=== PATIENT | male | born 1940 | race Caucasian/White ===

== ENCOUNTER 2019-06-13 13:32 | Outpatient (RCR) | payer MEDICARE, SELFPAY ==
[2019-03-28 14:46] LABS: Basophils Absolute Auto 0.1 K/mm3 (0.0-0.1); Basophils Percent Auto 0.8 % (0.2-1.2); Eosinophils Absolute Auto 0.1 K/mm3 (0-0.3); Eosinophils Percent Auto 0.9 % (0-4.4); Hematocrit 42.2 % (42.0-52.0); Hemoglobin 12.1 g/dL (14.0-18.0); Immature Granulocyte Absolute 0.02 K/mm3 (0.00-0.031); Immature Granulocyte Percent A 0.3 % (0-0.5); Lymphocytes Absolute Auto 0.65 K/mm3 (0.9-3.2); Mean Corpuscular HGB Conc 28.7 g/dl (32-36); Mean Corpuscular Hemoglobin 21.9 pg (26-34); Mean Corpuscular Volume 76.3 fl (80-100); Mean Platelet Volume 9.9 fl (7.4-10.4); Monocytes Absolute Auto 0.4 K/mm3 (0.1-0.6); Monocytes Percent Auto 6.7 % (2.6-8.5); Neutrophils Absolute Auto 5.3 K/mm3 (1.3-6.7); Neutrophils Percent Auto 81.3 % (45.5-73.1); Platelet Count Result 228 k/mm3 (150-375); Red Blood Count 5.53 M/mm3 (4.6-6.20); Red Cell Distribution Width 18.2 % (11.5-14.5); White Blood Count 6.5 K/mm3 (4.5-10.0)
[2019-03-28 14:59] LABS: INR 2.3; Prothrombin Time 25.2 Seconds (11.1-14.7)
[2019-03-28 15:00] LABS: Alanine Aminotransferase 21 U/L (4-50); Albumin Level 4.2 g/dL (3.5-5.1); Alkaline Phosphatase 74 U/L (38-126); Aspartate Amino Transferase 29 U/L (17-59); Bilirubin,Total 0.5 mg/dL (0.2-1.3); Blood Urea Nitrogen 20 mg/dL (9-20); Calcium 9.4 mg/dL (8.4-10.2); Carbon Dioxide 25 mmol/L (22-30); Chloride 99 mmol/L (98-107); Estimated Glomerular Filt Rate > 60; Glucose 300 mg/dL (75-110); Potassium 4.3 mmol/L (3.4-5.0); Sodium 135 mmol/L (137-145)
[2019-03-28 15:07] LABS: Platelet Estimate Adequate (Adequate)
[2019-03-28 15:08] LABS: Anisocytosis 2+ (NORMAL); Hemoglobin A1C 8.5 % (<5.7); Hypochromasia 1+ (NORMAL)
[2019-03-28 15:27] LABS: Free T4 Free Thyroxine 1.22 ng/mL (0.78-2.19)
[2019-04-25 16:33] LABS: Basophils Absolute Auto 0.1 K/mm3 (0.0-0.1); Basophils Percent Auto 1.1 % (0.2-1.2); Eosinophils Absolute Auto 0.1 K/mm3 (0-0.3); Eosinophils Percent Auto 1.1 % (0-4.4); Hematocrit 40.6 % (42.0-52.0); Hemoglobin 11.4 g/dL (14.0-18.0); Immature Granulocyte Absolute 0.01 K/mm3 (0.00-0.031); Immature Granulocyte Percent A 0.2 % (0-0.5); Lymphocytes Absolute Auto 0.69 K/mm3 (0.9-3.2); Mean Corpuscular HGB Conc 28.1 g/dl (32-36); Mean Corpuscular Hemoglobin 21.4 pg (26-34); Mean Corpuscular Volume 76.2 fl (80-100); Mean Platelet Volume 9.9 fl (7.4-10.4); Monocytes Absolute Auto 0.4 K/mm3 (0.1-0.6); Monocytes Percent Auto 6.8 % (2.6-8.5); Neutrophils Percent Auto 79.8 % (45.5-73.1); Platelet Count Result 214 k/mm3 (150-375); Red Blood Count 5.33 M/mm3 (4.6-6.20); White Blood Count 6.3 K/mm3 (4.5-10.0)
[2019-04-25 16:37] LABS: INR 2.3; Prothrombin Time 24.5 Seconds (11.1-14.7)
[2019-04-25 16:41] LABS: Alanine Aminotransferase 22 U/L (4-50); Albumin Level 4.1 g/dL (3.5-5.1); Alkaline Phosphatase 80 U/L (38-126); Aspartate Amino Transferase 28 U/L (17-59); Bilirubin,Total 0.5 mg/dL (0.2-1.3); Blood Urea Nitrogen 20 mg/dL (9-20); Calcium 9.1 mg/dL (8.4-10.2); Carbon Dioxide 25 mmol/L (22-30); Chloride 100 mmol/L (98-107); Estimated Glomerular Filt Rate > 60; Glucose 260 mg/dL (75-110); Lactate Dehydrogenase 816 U/L (313-618); Potassium 4.5 mmol/L (3.4-5.0); Sodium 138 mmol/L (137-145)
[2019-04-25 16:44] LABS: Hypochromasia 2+ (NORMAL); Ovalocytes 2+ (NORMAL); Platelet Estimate Adequate (Adequate); Poikilocytosis 1+ (NORMAL)
[2019-05-16 16:07] LABS: Basophils Absolute Auto 0.1 K/mm3 (0.0-0.1); Basophils Percent Auto 0.9 % (0.2-1.2); Eosinophils Absolute Auto 0.1 K/mm3 (0-0.3); Eosinophils Percent Auto 0.9 % (0-4.4); Hematocrit 40.2 % (42.0-52.0); Hemoglobin 11.3 g/dL (14.0-18.0); Immature Granulocyte Absolute 0.02 K/mm3 (0.00-0.031); Immature Granulocyte Percent A 0.3 % (0-0.5); Lymphocytes Absolute Auto 0.66 K/mm3 (0.9-3.2); Lymphocytes Percent Auto 9.7 % (18.3-44.2); Mean Corpuscular HGB Conc 28.1 g/dl (32-36); Mean Corpuscular Hemoglobin 21.3 pg (26-34); Mean Corpuscular Volume 75.7 fl (80-100); Mean Platelet Volume 10.2 fl (7.4-10.4); Monocytes Absolute Auto 0.4 K/mm3 (0.1-0.6); Monocytes Percent Auto 5.9 % (2.6-8.5); Neutrophils Absolute Auto 5.6 K/mm3 (1.3-6.7); Neutrophils Percent Auto 82.3 % (45.5-73.1); Platelet Count Result 204 k/mm3 (150-375); Red Blood Count 5.31 M/mm3 (4.6-6.20); Red Cell Distribution Width 19.9 % (11.5-14.5); White Blood Count 6.8 K/mm3 (4.5-10.0)
[2019-05-16 16:15] LABS: Hemoglobin A1C 8.5 % (<5.7)
[2019-05-16 16:20] LABS: Alanine Aminotransferase 20 U/L (4-50); Albumin Level 4.1 g/dL (3.5-5.1); Alkaline Phosphatase 80 U/L (38-126); Aspartate Amino Transferase 28 U/L (17-59); Bilirubin,Total 0.6 mg/dL (0.2-1.3); Blood Urea Nitrogen 19 mg/dL (9-20); Calcium 9.5 mg/dL (8.4-10.2); Carbon Dioxide 25 mmol/L (22-30); Chloride 100 mmol/L (98-107); Cholesterol 99 mg/dL (0-200); Estimated Glomerular Filt Rate 59; Glucose 214 mg/dL (75-110); HDL Direct 31 mg/dL; Lactate Dehydrogenase 875 U/L (313-618); Potassium 4.3 mmol/L (3.4-5.0); Sodium 135 mmol/L (137-145); Triglycerides 157 mg/dL (<150)
[2019-05-16 16:23] LABS: INR 2.6; Prothrombin Time 27.2 Seconds (11.1-14.7)
[2019-05-16 16:31] LABS: LDL Cholesterol Direct 38 mg/dL
[2019-05-16 17:38] LABS: Platelet Estimate Adequate (Adequate); Poikilocytosis 2+ (NORMAL)
[2019-05-16 17:39] LABS: Ovalocytes 2+ (NORMAL)
[2019-05-16 17:40] LABS: Burr Cells 2+ (NORMAL)
[2019-06-13 14:14] LABS: Basophils Absolute Auto 0.1 K/mm3 (0.0-0.1); Basophils Percent Auto 0.8 % (0.2-1.2); Eosinophils Percent Auto 0.6 % (0-4.4); Hematocrit 33.2 % (42.0-52.0); Hemoglobin 9.4 g/dL (14.0-18.0); Immature Granulocyte Absolute 0.03 K/mm3 (0.00-0.031); Immature Granulocyte Percent A 0.5 % (0-0.5); Lymphocytes Percent Auto 9.4 % (18.3-44.2); Mean Corpuscular HGB Conc 28.3 g/dl (32-36); Mean Corpuscular Hemoglobin 22.5 pg (26-34); Mean Corpuscular Volume 79.6 fl (80-100); Mean Platelet Volume 10.1 fl (7.4-10.4); Monocytes Absolute Auto 0.3 K/mm3 (0.1-0.6); Monocytes Percent Auto 5.3 % (2.6-8.5); Neutrophils Absolute Auto 5.3 K/mm3 (1.3-6.7); Neutrophils Percent Auto 83.4 % (45.5-73.1); Platelet Count Result 220 k/mm3 (150-375); Red Blood Count 4.17 M/mm3 (4.6-6.20); Red Cell Distribution Width 23.5 % (11.5-14.5); White Blood Count 6.4 K/mm3 (4.5-10.0)
[2019-06-13 14:25] LABS: INR 2.1; Prothrombin Time 22.8 Seconds (11.1-14.7)
[2019-06-13 14:27] LABS: Alanine Aminotransferase 22 U/L (4-50); Albumin Level 4.2 g/dL (3.5-5.1); Alkaline Phosphatase 78 U/L (38-126); Aspartate Amino Transferase 29 U/L (17-59); Bilirubin,Total 0.4 mg/dL (0.2-1.3); Blood Urea Nitrogen 23 mg/dL (9-20); Carbon Dioxide 23 mmol/L (22-30); Chloride 98 mmol/L (98-107); Estimated Glomerular Filt Rate > 60; Glucose 263 mg/dL (75-110); Lactate Dehydrogenase 732 U/L (313-618); Potassium 4.3 mmol/L (3.4-5.0); Sodium 134 mmol/L (137-145)
[2019-06-13 14:45] LABS: Anisocytosis 3+ (NORMAL); Hypochromasia 1+ (NORMAL); Platelet Estimate Adequate (Adequate)
== END 2019-06-26 23:59 | disposition home or self-care (01) ==
LOC: ANHLAB 13:32
DX: E11.8 Type 2 diabetes mellitus with unspecified complications (principal); E03.9 Hypothyroidism, unspecified; I25.5 Ischemic cardiomyopathy; Z95.811 Presence of heart assist device; Z79.01 Long term (current) use of anticoagulants
CPT/HCPCS: 36415; 80053; 80061; 83036; 83615; 84439; 84443; 85025; 85610

== ENCOUNTER 2019-07-12 10:58 | Outpatient (RCR) | payer MEDICARE, SELFPAY ==
[2019-06-27 18:22] LABS: Basophils Percent Auto 0.6 % (0.2-1.2); Eosinophils Absolute Auto 0.1 K/mm3 (0-0.3); Eosinophils Percent Auto 0.8 % (0-4.4); Hematocrit 34.4 % (42.0-52.0); Hemoglobin 9.7 g/dL (14.0-18.0); Immature Granulocyte Absolute 0.04 K/mm3 (0.00-0.031); Immature Granulocyte Percent A 0.6 % (0-0.5); Lymphocytes Absolute Auto 0.63 K/mm3 (0.9-3.2); Lymphocytes Percent Auto 10.1 % (18.3-44.2); Mean Corpuscular HGB Conc 28.2 g/dl (32-36); Mean Corpuscular Hemoglobin 21.5 pg (26-34); Mean Corpuscular Volume 76.3 fl (80-100); Mean Platelet Volume 9.8 fl (7.4-10.4); Monocytes Absolute Auto 0.3 K/mm3 (0.1-0.6); Monocytes Percent Auto 5.1 % (2.6-8.5); Neutrophils Absolute Auto 5.1 K/mm3 (1.3-6.7); Neutrophils Percent Auto 82.8 % (45.5-73.1); Platelet Count Result 216 k/mm3 (150-375); Red Blood Count 4.51 M/mm3 (4.6-6.20); Red Cell Distribution Width 20.4 % (11.5-14.5); White Blood Count 6.2 K/mm3 (4.5-10.0)
[2019-06-27 18:32] LABS: INR 2.5; Prothrombin Time 26.7 Seconds (11.1-14.7)
[2019-06-27 18:37] LABS: Alanine Aminotransferase 23 U/L (4-50); Albumin Level 4.7 g/dL (3.5-5.1); Alkaline Phosphatase 94 U/L (38-126); Aspartate Amino Transferase 29 U/L (17-59); Bilirubin,Total 0.5 mg/dL (0.2-1.3); Blood Urea Nitrogen 21 mg/dL (9-20); Calcium 9.3 mg/dL (8.4-10.2); Carbon Dioxide 24 mmol/L (22-30); Chloride 98 mmol/L (98-107); Estimated Glomerular Filt Rate > 60; Glucose 251 mg/dL (75-110); Lactate Dehydrogenase 782 U/L (313-618); Potassium 4.7 mmol/L (3.4-5.0); Sodium 136 mmol/L (137-145)
[2019-06-27 19:24] LABS: Acanthocytes 1+ (NORMAL); Schistocytes 2+ (NORMAL)
[2019-06-27 19:26] LABS: Burr Cells 2+ (NORMAL); Platelet Estimate Adequate (Adequate)
[2019-07-12 11:33] LABS: Hematocrit 30.5 % (42.0-52.0); Mean Corpuscular HGB Conc 26.2 g/dl (32-36); Mean Corpuscular Hemoglobin 19.9 pg (26-34); Mean Corpuscular Volume 75.9 fl (80-100); Mean Platelet Volume 9.6 fl (7.4-10.4); Platelet Count Result 277 k/mm3 (150-375); Red Blood Count 4.02 M/mm3 (4.6-6.20); Red Cell Distribution Width 19.9 % (11.5-14.5); White Blood Count 6.1 K/mm3 (4.5-10.0)
[2019-07-12 11:47] LABS: Alanine Aminotransferase 19 U/L (4-50); Albumin Level 4.1 g/dL (3.5-5.1); Alkaline Phosphatase 82 U/L (38-126); Aspartate Amino Transferase 25 U/L (17-59); Bilirubin,Total 0.5 mg/dL (0.2-1.3); Blood Urea Nitrogen 18 mg/dL (9-20); Carbon Dioxide 23 mmol/L (22-30); Chloride 98 mmol/L (98-107); Estimated Glomerular Filt Rate > 60; Glucose 246 mg/dL (75-110); Lactate Dehydrogenase 680 U/L (313-618); Potassium 4.3 mmol/L (3.4-5.0); Sodium 137 mmol/L (137-145)
[2019-07-12 12:33] LABS: INR 2.6; Prothrombin Time 27.1 Seconds (11.1-14.7)
[2019-07-12 12:52] LABS: Band Neutrophils Percent 15 % (0-6); Lymphocytes Absolute Manual 1.03 K/mm3 (1.1-4.5); Monocytes Absolute Manual 0.91 K/mm3 (0.1-0.90); Monocytes Percent Manual 15 % (3-9); Neutrophils Absolute Manual 4.14 K/mm3 (1.3-6.7); Neutrophils Percent Manual 53 % (46-73); Total Cells Counted 100
[2019-07-12 12:53] LABS: Platelet Estimate Adequate (Adequate)
== END 2019-09-25 23:59 | disposition home or self-care (01) ==
LOC: ANHLAB 10:58
DX: Z51.81 Encounter for therapeutic drug level monitoring (principal); I25.5 Ischemic cardiomyopathy; Z95.811 Presence of heart assist device; Z79.01 Long term (current) use of anticoagulants
CPT/HCPCS: 36415; 80053; 83615; 85025; 85610

== ENCOUNTER 2020-01-24 10:55 | Outpatient (CLI) | payer MEDICARE, SELFPAY ==
[2020-01-24 12:27] LABS: Iron 42 ug/dL (49-181)
[2020-01-24 12:36] LABS: Percent Iron Saturation 10 % (20-50)
== END 2020-01-24 10:56 | disposition home or self-care (01) ==
LOC: ANHLAB 11:05
PROVIDERS: PCP Internal Medicine; Visit Provider Internal Medicine Pulmonary Disease
DX: D50.9 Iron deficiency anemia, unspecified (principal)
CPT/HCPCS: 36415; 80053; 82728; 83540; 83550; 83615; 85025; 85610

== ENCOUNTER 2020-02-06 15:40 | Outpatient (RCR) | payer MEDICARE, SELFPAY ==
[2019-11-28 14:43] LABS: Basophils Percent Auto 0.6 % (0.2-1.2); Eosinophils Absolute Auto 0.1 K/mm3 (0-0.3); Eosinophils Percent Auto 0.9 % (0-4.4); Hematocrit 39.6 % (42.0-52.0); Hemoglobin 11.4 g/dL (14.0-18.0); Immature Granulocyte Absolute 0.02 K/mm3 (0.00-0.031); Immature Granulocyte Percent A 0.3 % (0-0.5); Lymphocytes Absolute Auto 0.64 K/mm3 (0.9-3.2); Mean Corpuscular HGB Conc 28.8 g/dl (32-36); Mean Corpuscular Hemoglobin 21.6 pg (26-34); Mean Corpuscular Volume 75.1 fl (80-100); Mean Platelet Volume 9.9 fl (7.4-10.4); Monocytes Absolute Auto 0.4 K/mm3 (0.1-0.6); Monocytes Percent Auto 5.9 % (2.6-8.5); Neutrophils Absolute Auto 5.3 K/mm3 (1.3-6.7); Neutrophils Percent Auto 82.3 % (45.5-73.1); Platelet Count Result 210 k/mm3 (150-375); Red Blood Count 5.27 M/mm3 (4.6-6.20); Red Cell Distribution Width 19.1 % (11.5-14.5); White Blood Count 6.4 K/mm3 (4.5-10.0)
[2019-11-28 14:53] LABS: INR 1.6; Prothrombin Time 18.4 Seconds (11.1-14.7)
[2019-11-28 14:56] LABS: Alanine Aminotransferase 19 U/L (4-50); Albumin Level 4.2 g/dL (3.5-5.1); Alkaline Phosphatase 92 U/L (38-126); Aspartate Amino Transferase 30 U/L (17-59); Bilirubin,Total 0.6 mg/dL (0.2-1.3); Blood Urea Nitrogen 17 mg/dL (9-20); Calcium 8.9 mg/dL (8.4-10.2); Carbon Dioxide 24 mmol/L (22-30); Chloride 103 mmol/L (98-107); Estimated Glomerular Filt Rate > 60; Glucose 250 mg/dL (75-110); Lactate Dehydrogenase 833 U/L (313-618); Potassium 4.6 mmol/L (3.4-5.0); Sodium 135 mmol/L (137-145)
[2019-11-28 15:01] LABS: Platelet Estimate Adequate (Adequate)
[2019-11-28 15:02] LABS: Anisocytosis 3+ (NORMAL); Hypochromasia 1+ (NORMAL)
[2019-12-05 12:08] LABS: Basophils Absolute Auto 0.1 K/mm3 (0.0-0.1); Eosinophils Absolute Auto 0.1 K/mm3 (0-0.3); Eosinophils Percent Auto 1.4 % (0-4.4); Hematocrit 42.6 % (42.0-52.0); Hemoglobin 12.1 g/dL (14.0-18.0); Immature Granulocyte Absolute 0.01 K/mm3 (0.00-0.031); Immature Granulocyte Percent A 0.2 % (0-0.5); Lymphocytes Absolute Auto 0.56 K/mm3 (0.9-3.2); Lymphocytes Percent Auto 8.9 % (18.3-44.2); Mean Corpuscular HGB Conc 28.4 g/dl (32-36); Mean Corpuscular Hemoglobin 21.5 pg (26-34); Mean Corpuscular Volume 75.8 fl (80-100); Mean Platelet Volume 10.1 fl (7.4-10.4); Monocytes Absolute Auto 0.4 K/mm3 (0.1-0.6); Neutrophils Absolute Auto 5.1 K/mm3 (1.3-6.7); Neutrophils Percent Auto 81.5 % (45.5-73.1); Platelet Count Result 195 k/mm3 (150-375); Red Blood Count 5.62 M/mm3 (4.6-6.20); Red Cell Distribution Width 20.3 % (11.5-14.5); White Blood Count 6.3 K/mm3 (4.5-10.0)
[2019-12-05 12:20] LABS: Prothrombin Time 22.3 Seconds (11.1-14.7)
[2019-12-05 12:23] LABS: Alanine Aminotransferase 20 U/L (4-50); Albumin Level 4.2 g/dL (3.5-5.1); Alkaline Phosphatase 92 U/L (38-126); Aspartate Amino Transferase 30 U/L (17-59); Bilirubin,Total 0.5 mg/dL (0.2-1.3); Blood Urea Nitrogen 16 mg/dL (9-20); Calcium 9.1 mg/dL (8.4-10.2); Carbon Dioxide 24 mmol/L (22-30); Chloride 101 mmol/L (98-107); Estimated Glomerular Filt Rate > 60; Glucose 290 mg/dL (75-110); Lactate Dehydrogenase 819 U/L (313-618); Potassium 4.4 mmol/L (3.4-5.0); Sodium 134 mmol/L (137-145)
[2019-12-05 13:20] LABS: Burr Cells 1+ (NORMAL); Hypochromasia 1+ (NORMAL); Ovalocytes 1+ (NORMAL); Platelet Estimate Adequate (Adequate); Poikilocytosis 2+ (NORMAL)
[2019-12-12 12:00] LABS: Basophils Absolute Auto 0.1 K/mm3 (0.0-0.1); Basophils Percent Auto 0.8 % (0.2-1.2); Eosinophils Absolute Auto 0.1 K/mm3 (0-0.3); Eosinophils Percent Auto 1.5 % (0-4.4); Hematocrit 42.6 % (42.0-52.0); Hemoglobin 12.5 g/dL (14.0-18.0); Immature Granulocyte Absolute 0.02 K/mm3 (0.00-0.031); Immature Granulocyte Percent A 0.3 % (0-0.5); Lymphocytes Absolute Auto 0.71 K/mm3 (0.9-3.2); Lymphocytes Percent Auto 11.8 % (18.3-44.2); Mean Corpuscular HGB Conc 29.3 g/dl (32-36); Mean Corpuscular Hemoglobin 22.2 pg (26-34); Mean Corpuscular Volume 75.5 fl (80-100); Mean Platelet Volume 9.7 fl (7.4-10.4); Monocytes Absolute Auto 0.4 K/mm3 (0.1-0.6); Monocytes Percent Auto 6.6 % (2.6-8.5); Neutrophils Absolute Auto 4.8 K/mm3 (1.3-6.7); Platelet Count Result 177 k/mm3 (150-375); Red Blood Count 5.64 M/mm3 (4.6-6.20); Red Cell Distribution Width 20.6 % (11.5-14.5)
[2019-12-12 12:09] LABS: INR 1.9
[2019-12-12 12:19] LABS: Alanine Aminotransferase 21 U/L (4-50); Albumin Level 4.3 g/dL (3.5-5.1); Alkaline Phosphatase 93 U/L (38-126); Anion Gap 14.1 mmol/L (7-16); Aspartate Amino Transferase 30 U/L (17-59); Bilirubin,Total 0.5 mg/dL (0.2-1.3); Blood Urea Nitrogen 19 mg/dL (9-20); Calcium 9.3 mg/dL (8.4-10.2); Carbon Dioxide 24 mmol/L (22-30); Chloride 103 mmol/L (98-107); Estimated Glomerular Filt Rate > 60; Glucose 230 mg/dL (75-110); Lactate Dehydrogenase 867 U/L (313-618); Potassium 4.1 mmol/L (3.4-5.0); Sodium 137 mmol/L (137-145)
[2019-12-12 12:24] LABS: Platelet Estimate Adequate (Adequate)
[2019-12-12 12:25] LABS: Anisocytosis 2+ (NORMAL)
[2019-12-26 11:56] LABS: Basophils Absolute Auto 0.1 K/mm3 (0.0-0.1); Basophils Percent Auto 1.1 % (0.2-1.2); Eosinophils Absolute Auto 0.1 K/mm3 (0-0.3); Eosinophils Percent Auto 2.4 % (0-4.4); Hematocrit 43.7 % (42.0-52.0); Hemoglobin 12.7 g/dL (14.0-18.0); Immature Granulocyte Absolute 0.01 K/mm3 (0.00-0.031); Immature Granulocyte Percent A 0.2 % (0-0.5); Lymphocytes Absolute Auto 0.55 K/mm3 (0.9-3.2); Lymphocytes Percent Auto 10.2 % (18.3-44.2); Mean Corpuscular HGB Conc 29.1 g/dl (32-36); Mean Corpuscular Hemoglobin 22.4 pg (26-34); Mean Corpuscular Volume 77.1 fl (80-100); Mean Platelet Volume 10.2 fl (7.4-10.4); Monocytes Absolute Auto 0.4 K/mm3 (0.1-0.6); Monocytes Percent Auto 6.9 % (2.6-8.5); Neutrophils Absolute Auto 4.3 K/mm3 (1.3-6.7); Neutrophils Percent Auto 79.2 % (45.5-73.1); Platelet Count Result 188 k/mm3 (150-375); Red Blood Count 5.67 M/mm3 (4.6-6.20); Red Cell Distribution Width 21.3 % (11.5-14.5); White Blood Count 5.4 K/mm3 (4.5-10.0)
[2019-12-26 12:05] LABS: INR 1.6; Prothrombin Time 18.8 Seconds (11.1-14.7)
[2019-12-26 12:11] LABS: Alanine Aminotransferase 22 U/L (4-50); Albumin Level 4.1 g/dL (3.5-5.1); Alkaline Phosphatase 86 U/L (38-126); Anion Gap 9 mmol/L (8-16); Aspartate Amino Transferase 31 U/L (17-59); Bilirubin,Total 0.4 mg/dL (0.2-1.3); Blood Urea Nitrogen 17 mg/dL (9-20); Calcium 9.3 mg/dL (8.4-10.2); Carbon Dioxide 25 mmol/L (22-30); Chloride 102 mmol/L (98-107); Estimated Glomerular Filt Rate > 60; Glucose 226 mg/dL (75-110); Lactate Dehydrogenase 891 U/L (313-618); Potassium 4.2 mmol/L (3.4-5.0); Sodium 136 mmol/L (137-145)
[2019-12-26 12:13] LABS: Platelet Estimate Adequate (Adequate)
[2019-12-26 12:14] LABS: Hypochromasia 1+ (NORMAL); Ovalocytes 1+ (NORMAL)
[2019-12-26 12:15] LABS: Acanthocytes 1+ (NORMAL)
[2020-01-09 11:38] LABS: Basophils Absolute Auto 0.1 K/mm3 (0.0-0.1); Basophils Percent Auto 0.8 % (0.2-1.2); Eosinophils Absolute Auto 0.1 K/mm3 (0-0.3); Eosinophils Percent Auto 1.7 % (0-4.4); Hematocrit 44.3 % (42.0-52.0); Hemoglobin 13.1 g/dL (14.0-18.0); Immature Granulocyte Absolute 0.02 K/mm3 (0.00-0.031); Immature Granulocyte Percent A 0.3 % (0-0.5); Lymphocytes Absolute Auto 0.59 K/mm3 (0.9-3.2); Mean Corpuscular HGB Conc 29.6 g/dl (32-36); Mean Corpuscular Hemoglobin 22.7 pg (26-34); Mean Corpuscular Volume 76.9 fl (80-100); Mean Platelet Volume 10.5 fl (7.4-10.4); Monocytes Absolute Auto 0.4 K/mm3 (0.1-0.6); Monocytes Percent Auto 6.1 % (2.6-8.5); Neutrophils Absolute Auto 4.8 K/mm3 (1.3-6.7); Neutrophils Percent Auto 81.1 % (45.5-73.1); Platelet Count Result 179 k/mm3 (150-375); Red Blood Count 5.76 M/mm3 (4.6-6.20); Red Cell Distribution Width 21.4 % (11.5-14.5); White Blood Count 5.9 K/mm3 (4.5-10.0)
[2020-01-09 11:55] LABS: Alanine Aminotransferase 22 U/L (4-50); Albumin Level 4.1 g/dL (3.5-5.1); Alkaline Phosphatase 92 U/L (38-126); Anion Gap 10 mmol/L (8-16); Aspartate Amino Transferase 29 U/L (17-59); Bilirubin,Total 0.4 mg/dL (0.2-1.3); Blood Urea Nitrogen 19 mg/dL (9-20); Calcium 9.4 mg/dL (8.4-10.2); Carbon Dioxide 25 mmol/L (22-30); Chloride 101 mmol/L (98-107); Estimated Glomerular Filt Rate > 60; Glucose 246 mg/dL (75-110); Lactate Dehydrogenase 884 U/L (313-618); Potassium 4.1 mmol/L (3.4-5.0); Sodium 136 mmol/L (137-145)
[2020-01-09 11:59] LABS: Hypochromasia 2+ (NORMAL); Ovalocytes 2+ (NORMAL); Platelet Estimate Adequate (Adequate)
[2020-01-09 12:00] LABS: Helmet Cells 1+ (NORMAL); Polychromasia 1+ (NORMAL); Tear Drop Cells 1+ (NORMAL)
[2020-01-09 12:27] LABS: INR 2.6; Prothrombin Time 27.4 Seconds (11.1-14.7)
[2020-01-24 11:44] LABS: Basophils Absolute Auto 0.1 K/mm3 (0.0-0.1); Basophils Percent Auto 0.8 % (0.2-1.2); Eosinophils Absolute Auto 0.1 K/mm3 (0-0.3); Eosinophils Percent Auto 1.4 % (0-4.4); Hemoglobin 13.1 g/dL (14.0-18.0); Immature Granulocyte Absolute 0.02 K/mm3 (0.00-0.031); Immature Granulocyte Percent A 0.3 % (0-0.5); Lymphocytes Absolute Auto 0.62 K/mm3 (0.9-3.2); Lymphocytes Percent Auto 9.3 % (18.3-44.2); Mean Corpuscular HGB Conc 29.8 g/dl (32-36); Mean Corpuscular Hemoglobin 23.4 pg (26-34); Mean Corpuscular Volume 78.7 fl (80-100); Mean Platelet Volume 10.2 fl (7.4-10.4); Monocytes Absolute Auto 0.4 K/mm3 (0.1-0.6); Monocytes Percent Auto 6.3 % (2.6-8.5); Neutrophils Absolute Auto 5.5 K/mm3 (1.3-6.7); Neutrophils Percent Auto 81.9 % (45.5-73.1); Platelet Count Result 188 k/mm3 (150-375); Red Blood Count 5.59 M/mm3 (4.6-6.20); Red Cell Distribution Width 21.4 % (11.5-14.5); White Blood Count 6.7 K/mm3 (4.5-10.0)
[2020-01-24 11:55] LABS: INR 2.3; Prothrombin Time 24.7 Seconds (11.1-14.7)
[2020-01-24 11:58] LABS: Alanine Aminotransferase 22 U/L (4-50); Alkaline Phosphatase 88 U/L (38-126); Anion Gap 8 mmol/L (8-16); Aspartate Amino Transferase 30 U/L (17-59); Bilirubin,Total 0.6 mg/dL (0.2-1.3); Blood Urea Nitrogen 15 mg/dL (9-20); Calcium 9.2 mg/dL (8.4-10.2); Carbon Dioxide 26 mmol/L (22-30); Chloride 102 mmol/L (98-107); Estimated Glomerular Filt Rate > 60; Glucose 245 mg/dL (75-110); Lactate Dehydrogenase 881 U/L (313-618); Potassium 4.3 mmol/L (3.4-5.0); Sodium 136 mmol/L (137-145)
[2020-02-06 12:11] LABS: Basophils Absolute Auto 0.1 K/mm3 (0.0-0.1); Basophils Percent Auto 0.8 % (0.2-1.2); Eosinophils Absolute Auto 0.1 K/mm3 (0-0.3); Eosinophils Percent Auto 1.2 % (0-4.4); Immature Granulocyte Absolute 0.02 K/mm3 (0.00-0.031); Immature Granulocyte Percent A 0.3 % (0-0.5); Lymphocytes Absolute Auto 0.65 K/mm3 (0.9-3.2); Lymphocytes Percent Auto 8.9 % (18.3-44.2); Mean Corpuscular HGB Conc 30.4 g/dl (32-36); Mean Corpuscular Hemoglobin 23.6 pg (26-34); Mean Corpuscular Volume 77.4 fl (80-100); Mean Platelet Volume 9.8 fl (7.4-10.4); Monocytes Absolute Auto 0.6 K/mm3 (0.1-0.6); Monocytes Percent Auto 7.8 % (2.6-8.5); Neutrophils Absolute Auto 5.9 K/mm3 (1.3-6.7); Platelet Count Result 189 k/mm3 (150-375); Red Blood Count 5.94 M/mm3 (4.6-6.20); Red Cell Distribution Width 20.4 % (11.5-14.5); White Blood Count 7.3 K/mm3 (4.5-10.0)
== END 2020-02-26 23:59 | disposition home or self-care (01) ==
LOC: ANHLAB 15:40
PROVIDERS: PCP Internal Medicine
DX: Z51.81 Encounter for therapeutic drug level monitoring (principal); I25.5 Ischemic cardiomyopathy; Z95.811 Presence of heart assist device; Z79.01 Long term (current) use of anticoagulants
CPT/HCPCS: 36415; 80053; 83615; 85025; 85610

== ENCOUNTER 2020-02-27 11:21 | Outpatient (CLI) | payer MEDICARE, SELFPAY ==
[2020-02-27 12:34] LABS: Cholesterol 124 mg/dL (0-200); HDL Direct 32 mg/dL; Triglycerides 302 mg/dL (<150)
[2020-02-27 12:45] LABS: LDL Cholesterol Direct 45 mg/dL
[2020-02-27 13:00] LABS: Microalbumin Urine Random 34.3 mg/L (0-16.7)
[2020-02-27 13:01] LABS: MALB Creatinine Ratio 171.5 mg/g (0-30)
[2020-02-27 13:11] LABS: Vitamin D 25 Hydroxy 31.2 ng/mL
== END 2020-02-27 11:22 | disposition home or self-care (01) ==
LOC: ANHLAB 11:30
PROVIDERS: PCP Internal Medicine
DX: E11.9 Type 2 diabetes mellitus without complications (principal); Z79.4 Long term (current) use of insulin; E78.5 Hyperlipidemia, unspecified; E55.9 Vitamin D deficiency, unspecified; E03.9 Hypothyroidism, unspecified
CPT/HCPCS: 36415; 80053; 80061; 82043; 82306; 82607; 83615; 84443; 85025; 85610

== ENCOUNTER 2020-05-14 11:29 | Outpatient (RCR) | payer MEDICARE, SELFPAY ==
[2020-02-27 12:34] LABS: Basophils Percent Auto 0.7 % (0.2-1.2); Eosinophils Absolute Auto 0.1 K/mm3 (0-0.3); Eosinophils Percent Auto 1.6 % (0-4.4); Hematocrit 47.9 % (42.0-52.0); Hemoglobin 14.7 g/dL (14.0-18.0); Immature Granulocyte Absolute 0.01 K/mm3 (0.00-0.031); Immature Granulocyte Percent A 0.2 % (0-0.5); Lymphocytes Absolute Auto 0.72 K/mm3 (0.9-3.2); Lymphocytes Percent Auto 12.5 % (18.3-44.2); Mean Corpuscular HGB Conc 30.7 g/dl (32-36); Mean Corpuscular Hemoglobin 24.8 pg (26-34); Mean Corpuscular Volume 80.8 fl (80-100); Mean Platelet Volume 10.5 fl (7.4-10.4); Monocytes Absolute Auto 0.5 K/mm3 (0.1-0.6); Monocytes Percent Auto 7.8 % (2.6-8.5); Neutrophils Absolute Auto 4.5 K/mm3 (1.3-6.7); Neutrophils Percent Auto 77.2 % (45.5-73.1); Platelet Count Result 174 k/mm3 (150-375); Red Blood Count 5.93 M/mm3 (4.6-6.20); Red Cell Distribution Width 19.7 % (11.5-14.5); White Blood Count 5.8 K/mm3 (4.5-10.0)
[2020-02-27 12:35] LABS: Alanine Aminotransferase 37 U/L (4-50); Albumin Level 4.1 g/dL (3.5-5.1); Alkaline Phosphatase 92 U/L (38-126); Anion Gap 11 mmol/L (8-16); Aspartate Amino Transferase 44 U/L (17-59); Bilirubin,Total 0.6 mg/dL (0.2-1.3); Blood Urea Nitrogen 17 mg/dL (9-20); Calcium 9.7 mg/dL (8.4-10.2); Carbon Dioxide 28 mmol/L (22-30); Chloride 97 mmol/L (98-107); Estimated Glomerular Filt Rate > 60; Glucose 240 mg/dL (75-110); Potassium 4.2 mmol/L (3.4-5.0); Sodium 136 mmol/L (137-145)
[2020-02-27 12:38] LABS: INR 1.8
[2020-02-27 13:27] LABS: Lactate Dehydrogenase 1037 U/L (313-618)
[2020-03-19 12:35] LABS: Basophils Absolute Auto 0.1 K/mm3 (0.0-0.1); Basophils Percent Auto 0.9 % (0.2-1.2); Eosinophils Absolute Auto 0.1 K/mm3 (0-0.3); Eosinophils Percent Auto 1.5 % (0-4.4); Hematocrit 51.3 % (42.0-52.0); Immature Granulocyte Absolute 0.01 K/mm3 (0.00-0.031); Immature Granulocyte Percent A 0.1 % (0-0.5); Lymphocytes Absolute Auto 0.65 K/mm3 (0.9-3.2); Lymphocytes Percent Auto 9.7 % (18.3-44.2); Mean Corpuscular HGB Conc 31.2 g/dl (32-36); Mean Corpuscular Hemoglobin 25.9 pg (26-34); Mean Platelet Volume 9.9 fl (7.4-10.4); Monocytes Absolute Auto 0.5 K/mm3 (0.1-0.6); Monocytes Percent Auto 6.9 % (2.6-8.5); Neutrophils Absolute Auto 5.4 K/mm3 (1.3-6.7); Neutrophils Percent Auto 80.9 % (45.5-73.1); Platelet Count Result 152 k/mm3 (150-375); Red Blood Count 6.18 M/mm3 (4.6-6.20); Red Cell Distribution Width 19.8 % (11.5-14.5); White Blood Count 6.7 K/mm3 (4.5-10.0)
[2020-03-19 12:45] LABS: INR 1.8; Prothrombin Time 21.8 Seconds (11.1-14.7)
[2020-03-19 12:48] LABS: Lactate Dehydrogenase 1136 U/L (313-618)
[2020-03-19 12:50] LABS: Alanine Aminotransferase 35 U/L (4-50); Alkaline Phosphatase 92 U/L (38-126); Anion Gap 5 mmol/L (8-16); Aspartate Amino Transferase 38 U/L (17-59); Bilirubin,Total 0.6 mg/dL (0.2-1.3); Blood Urea Nitrogen 19 mg/dL (9-20); Calcium 9.7 mg/dL (8.4-10.2); Carbon Dioxide 30 mmol/L (22-30); Chloride 100 mmol/L (98-107); Estimated Glomerular Filt Rate > 60; Glucose 249 mg/dL (75-110); Potassium 4.2 mmol/L (3.4-5.0); Sodium 135 mmol/L (137-145)
[2020-04-02 15:10] LABS: Basophils Absolute Auto 0.1 K/mm3 (0.0-0.1); Basophils Percent Auto 0.9 % (0.2-1.2); Eosinophils Absolute Auto 0.1 K/mm3 (0-0.3); Eosinophils Percent Auto 1.3 % (0-4.4); Hematocrit 50.7 % (42.0-52.0); Hemoglobin 16.1 g/dL (14.0-18.0); Immature Granulocyte Absolute 0.01 K/mm3 (0.00-0.031); Immature Granulocyte Percent A 0.1 % (0-0.5); Lymphocytes Absolute Auto 0.67 K/mm3 (0.9-3.2); Mean Corpuscular HGB Conc 31.8 g/dl (32-36); Mean Corpuscular Hemoglobin 26.8 pg (26-34); Mean Corpuscular Volume 84.5 fl (80-100); Mean Platelet Volume 9.7 fl (7.4-10.4); Monocytes Absolute Auto 0.3 K/mm3 (0.1-0.6); Monocytes Percent Auto 4.8 % (2.6-8.5); Neutrophils Absolute Auto 5.6 K/mm3 (1.3-6.7); Neutrophils Percent Auto 82.9 % (45.5-73.1); Platelet Count Result 151 k/mm3 (150-375); Red Cell Distribution Width 19.3 % (11.5-14.5); White Blood Count 6.7 K/mm3 (4.5-10.0)
[2020-04-02 15:21] LABS: Prothrombin Time 23.4 Seconds (11.1-14.7)
[2020-04-02 15:22] LABS: Alanine Aminotransferase 39 U/L (4-50); Albumin Level 4.1 g/dL (3.5-5.1); Alkaline Phosphatase 90 U/L (38-126); Anion Gap 4 mmol/L (8-16); Aspartate Amino Transferase 50 U/L (17-59); Bilirubin,Total 0.7 mg/dL (0.2-1.3); Blood Urea Nitrogen 18 mg/dL (9-20); Calcium 9.6 mg/dL (8.4-10.2); Carbon Dioxide 32 mmol/L (22-30); Chloride 100 mmol/L (98-107); Estimated Glomerular Filt Rate > 60; Glucose 219 mg/dL (75-110); Lactate Dehydrogenase 1366 U/L (313-618); Sodium 136 mmol/L (137-145)
[2020-04-09 15:24] LABS: Basophils Percent Auto 0.6 % (0.2-1.2); Eosinophils Absolute Auto 0.1 K/mm3 (0-0.3); Eosinophils Percent Auto 1.1 % (0-4.4); Hematocrit 49.7 % (42.0-52.0); Hemoglobin 15.8 g/dL (14.0-18.0); Immature Granulocyte Absolute 0.02 K/mm3 (0.00-0.031); Immature Granulocyte Percent A 0.3 % (0-0.5); Lymphocytes Absolute Auto 0.79 K/mm3 (0.9-3.2); Lymphocytes Percent Auto 12.5 % (18.3-44.2); Mean Corpuscular HGB Conc 31.8 g/dl (32-36); Mean Corpuscular Hemoglobin 26.7 pg (26-34); Mean Platelet Volume 10.3 fl (7.4-10.4); Monocytes Absolute Auto 0.5 K/mm3 (0.1-0.6); Monocytes Percent Auto 7.5 % (2.6-8.5); Neutrophils Absolute Auto 4.9 K/mm3 (1.3-6.7); Platelet Count Result 164 k/mm3 (150-375); Red Blood Count 5.92 M/mm3 (4.6-6.20); White Blood Count 6.3 K/mm3 (4.5-10.0)
[2020-04-09 15:38] LABS: Alanine Aminotransferase 33 U/L (4-50); Albumin Level 4.2 g/dL (3.5-5.1); Alkaline Phosphatase 89 U/L (38-126); Anion Gap 7 mmol/L (8-16); Aspartate Amino Transferase 44 U/L (17-59); Bilirubin,Total 0.8 mg/dL (0.2-1.3); Blood Urea Nitrogen 21 mg/dL (9-20); Calcium 9.8 mg/dL (8.4-10.2); Carbon Dioxide 33 mmol/L (22-30); Chloride 97 mmol/L (98-107); Estimated Glomerular Filt Rate > 60; Glucose 265 mg/dL (75-110); INR 1.8; Lactate Dehydrogenase 1454 U/L (313-618); Potassium 4.7 mmol/L (3.4-5.0); Prothrombin Time 21.9 Seconds (11.1-14.7); Sodium 137 mmol/L (137-145)
[2020-04-16 15:03] LABS: Basophils Absolute Auto 0.1 K/mm3 (0.0-0.1); Basophils Percent Auto 0.8 % (0.2-1.2); Eosinophils Absolute Auto 0.1 K/mm3 (0-0.3); Eosinophils Percent Auto 1.4 % (0-4.4); Hematocrit 50.7 % (42.0-52.0); Hemoglobin 16.4 g/dL (14.0-18.0); Immature Granulocyte Absolute 0.03 K/mm3 (0.00-0.031); Immature Granulocyte Percent A 0.5 % (0-0.5); Lymphocytes Absolute Auto 0.68 K/mm3 (0.9-3.2); Lymphocytes Percent Auto 10.9 % (18.3-44.2); Mean Corpuscular HGB Conc 32.3 g/dl (32-36); Mean Corpuscular Hemoglobin 27.3 pg (26-34); Mean Corpuscular Volume 84.4 fl (80-100); Mean Platelet Volume 9.8 fl (7.4-10.4); Monocytes Absolute Auto 0.4 K/mm3 (0.1-0.6); Monocytes Percent Auto 6.7 % (2.6-8.5); Neutrophils Percent Auto 79.7 % (45.5-73.1); Platelet Count Result 159 k/mm3 (150-375); Red Blood Count 6.01 M/mm3 (4.6-6.20); Red Cell Distribution Width 18.4 % (11.5-14.5); White Blood Count 6.3 K/mm3 (4.5-10.0)
[2020-04-16 15:13] LABS: INR 2.4; Prothrombin Time 26.7 Seconds (11.1-14.7)
[2020-04-17 12:17] LABS: Bilirubin,Total 0.7 mg/dL (0.2-1.3); Blood Urea Nitrogen 20 mg/dL (9-20); Carbon Dioxide 30 mmol/L (22-30); Estimated Glomerular Filt Rate > 60
[2020-04-17 12:25] LABS: Alanine Aminotransferase 42 U/L (4-50); Alkaline Phosphatase 89 U/L (38-126); Anion Gap 5 mmol/L (8-16); Aspartate Amino Transferase 48 U/L (17-59); Calcium 9.6 mg/dL (8.4-10.2); Chloride 102 mmol/L (98-107); Glucose 172 mg/dL (75-110); Lactate Dehydrogenase 1358 U/L (313-618); Potassium 4.2 mmol/L (3.4-5.0); Sodium 137 mmol/L (137-145)
[2020-04-23 15:18] LABS: Basophils Absolute Auto 0.1 K/mm3 (0.0-0.1); Basophils Percent Auto 0.8 % (0.2-1.2); Eosinophils Absolute Auto 0.1 K/mm3 (0-0.3); Eosinophils Percent Auto 1.5 % (0-4.4); Hematocrit 50.9 % (42.0-52.0); Hemoglobin 16.5 g/dL (14.0-18.0); Immature Granulocyte Absolute 0.03 K/mm3 (0.00-0.031); Immature Granulocyte Percent A 0.5 % (0-0.5); Lymphocytes Absolute Auto 0.72 K/mm3 (0.9-3.2); Lymphocytes Percent Auto 12.2 % (18.3-44.2); Mean Corpuscular HGB Conc 32.4 g/dl (32-36); Mean Corpuscular Hemoglobin 27.5 pg (26-34); Mean Corpuscular Volume 84.8 fl (80-100); Monocytes Absolute Auto 0.3 K/mm3 (0.1-0.6); Monocytes Percent Auto 5.2 % (2.6-8.5); Neutrophils Absolute Auto 4.7 K/mm3 (1.3-6.7); Neutrophils Percent Auto 79.8 % (45.5-73.1); Platelet Count Result 180 k/mm3 (150-375); Red Cell Distribution Width 18.1 % (11.5-14.5); White Blood Count 5.9 K/mm3 (4.5-10.0)
[2020-04-23 15:30] LABS: Alanine Aminotransferase 38 U/L (4-50); Albumin Level 4.3 g/dL (3.5-5.1); Alkaline Phosphatase 101 U/L (38-126); Anion Gap 9 mmol/L (8-16); Aspartate Amino Transferase 46 U/L (17-59); Bilirubin,Total 0.8 mg/dL (0.2-1.3); Blood Urea Nitrogen 18 mg/dL (9-20); Calcium 9.8 mg/dL (8.4-10.2); Carbon Dioxide 29 mmol/L (22-30); Chloride 99 mmol/L (98-107); Estimated Glomerular Filt Rate > 60; Glucose 302 mg/dL (75-110); Lactate Dehydrogenase 1326 U/L (313-618); Potassium 4.3 mmol/L (3.4-5.0); Sodium 137 mmol/L (137-145)
[2020-04-23 15:32] LABS: INR 1.9; Prothrombin Time 22.1 Seconds (11.1-14.7)
[2020-04-30 11:43] LABS: Basophils Absolute Auto 0.1 K/mm3 (0.0-0.1); Basophils Percent Auto 0.8 % (0.2-1.2); Eosinophils Absolute Auto 0.1 K/mm3 (0-0.3); Hematocrit 50.8 % (42.0-52.0); Hemoglobin 16.6 g/dL (14.0-18.0); Immature Granulocyte Absolute 0.02 K/mm3 (0.00-0.031); Immature Granulocyte Percent A 0.3 % (0-0.5); Lymphocytes Percent Auto 7.8 % (18.3-44.2); Mean Corpuscular HGB Conc 32.7 g/dl (32-36); Mean Corpuscular Hemoglobin 28.1 pg (26-34); Mean Corpuscular Volume 86.1 fl (80-100); Mean Platelet Volume 9.6 fl (7.4-10.4); Monocytes Absolute Auto 0.5 K/mm3 (0.1-0.6); Monocytes Percent Auto 6.3 % (2.6-8.5); Neutrophils Absolute Auto 6.4 K/mm3 (1.3-6.7); Neutrophils Percent Auto 83.8 % (45.5-73.1); Platelet Count Result 162 k/mm3 (150-375); Red Cell Distribution Width 18.1 % (11.5-14.5); White Blood Count 7.7 K/mm3 (4.5-10.0)
[2020-04-30 11:52] LABS: Alanine Aminotransferase 39 U/L (4-50); Albumin Level 4.2 g/dL (3.5-5.1); Alkaline Phosphatase 88 U/L (38-126); Anion Gap 6 mmol/L (8-16); Aspartate Amino Transferase 50 U/L (17-59); Bilirubin,Total 0.7 mg/dL (0.2-1.3); Blood Urea Nitrogen 17 mg/dL (9-20); Calcium 9.6 mg/dL (8.4-10.2); Carbon Dioxide 29 mmol/L (22-30); Chloride 101 mmol/L (98-107); Estimated Glomerular Filt Rate > 60; Glucose 195 mg/dL (75-110); Lactate Dehydrogenase 1408 U/L (313-618); Potassium 4.1 mmol/L (3.4-5.0); Sodium 136 mmol/L (137-145)
[2020-04-30 11:53] LABS: INR 2.1; Prothrombin Time 24.4 Seconds (11.1-14.7)
[2020-05-14 11:59] LABS: Basophils Absolute Auto 0.1 K/mm3 (0.0-0.1); Basophils Percent Auto 0.8 % (0.2-1.2); Eosinophils Absolute Auto 0.1 K/mm3 (0-0.3); Eosinophils Percent Auto 1.7 % (0-4.4); Hemoglobin 15.2 g/dL (14.0-18.0); Immature Granulocyte Absolute 0.02 K/mm3 (0.00-0.031); Immature Granulocyte Percent A 0.3 % (0-0.5); Lymphocytes Absolute Auto 0.54 K/mm3 (0.9-3.2); Lymphocytes Percent Auto 8.2 % (18.3-44.2); Mean Corpuscular HGB Conc 32.3 g/dl (32-36); Mean Corpuscular Hemoglobin 28.8 pg (26-34); Mean Platelet Volume 9.7 fl (7.4-10.4); Monocytes Absolute Auto 0.4 K/mm3 (0.1-0.6); Monocytes Percent Auto 5.5 % (2.6-8.5); Neutrophils Absolute Auto 5.5 K/mm3 (1.3-6.7); Neutrophils Percent Auto 83.5 % (45.5-73.1); Platelet Count Result 162 k/mm3 (150-375); Red Blood Count 5.28 M/mm3 (4.6-6.20); Red Cell Distribution Width 17.5 % (11.5-14.5); White Blood Count 6.6 K/mm3 (4.5-10.0)
[2020-05-14 12:16] LABS: INR 2.4; Prothrombin Time 26.4 Seconds (11.1-14.7)
[2020-05-14 12:23] LABS: Alanine Aminotransferase 37 U/L (4-50); Albumin Level 3.9 g/dL (3.5-5.1); Alkaline Phosphatase 84 U/L (38-126); Anion Gap 6 mmol/L (8-16); Aspartate Amino Transferase 49 U/L (17-59); Bilirubin,Total 0.7 mg/dL (0.2-1.3); Blood Urea Nitrogen 21 mg/dL (9-20); Carbon Dioxide 31 mmol/L (22-30); Chloride 100 mmol/L (98-107); Estimated Glomerular Filt Rate > 60; Glucose 185 mg/dL (75-110); Lactate Dehydrogenase 1538 U/L (313-618); Potassium 4.1 mmol/L (3.4-5.0); Sodium 137 mmol/L (137-145)
== END 2020-05-27 23:59 | disposition home or self-care (01) ==
LOC: ANHLAB 11:29
PROVIDERS: PCP Internal Medicine
DX: Z51.81 Encounter for therapeutic drug level monitoring (principal); I25.5 Ischemic cardiomyopathy; Z95.811 Presence of heart assist device; Z79.01 Long term (current) use of anticoagulants
CPT/HCPCS: 36415; 80053; 83615; 85025; 85610

== ENCOUNTER 2020-08-13 10:52 | Outpatient (RCR) | payer MEDICARE, SELFPAY ==
[2020-05-28 13:41] LABS: Basophils Absolute Auto 0.1 K/mm3 (0.0-0.1); Basophils Percent Auto 0.7 % (0.2-1.2); Eosinophils Absolute Auto 0.1 K/mm3 (0-0.3); Eosinophils Percent Auto 1.4 % (0-4.4); Hematocrit 42.6 % (42.0-52.0); Hemoglobin 13.7 g/dL (14.0-18.0); Immature Granulocyte Absolute 0.05 K/mm3 (0.00-0.031); Immature Granulocyte Percent A 0.7 % (0-0.5); Lymphocytes Percent Auto 9.5 % (18.3-44.2); Mean Corpuscular HGB Conc 32.2 g/dl (32-36); Mean Corpuscular Hemoglobin 28.9 pg (26-34); Mean Corpuscular Volume 89.9 fl (80-100); Mean Platelet Volume 10.2 fl (7.4-10.4); Monocytes Absolute Auto 0.4 K/mm3 (0.1-0.6); Neutrophils Percent Auto 81.7 % (45.5-73.1); Platelet Count Result 194 k/mm3 (150-375); Red Blood Count 4.74 M/mm3 (4.6-6.20); Red Cell Distribution Width 17.2 % (11.5-14.5); White Blood Count 7.4 K/mm3 (4.5-10.0)
[2020-05-28 13:54] LABS: INR 2.2; Prothrombin Time 25.4 Seconds (11.1-14.7)
[2020-05-28 13:58] LABS: Alanine Aminotransferase 53 U/L (4-50); Albumin Level 4.1 g/dL (3.5-5.1); Alkaline Phosphatase 90 U/L (38-126); Anion Gap 3 mmol/L (8-16); Aspartate Amino Transferase 72 U/L (17-59); Bilirubin,Total 0.9 mg/dL (0.2-1.3); Blood Urea Nitrogen 21 mg/dL (9-20); Calcium 9.5 mg/dL (8.4-10.2); Carbon Dioxide 33 mmol/L (22-30); Chloride 100 mmol/L (98-107); Estimated Glomerular Filt Rate > 60; Glucose 200 mg/dL (75-110); Potassium 4.6 mmol/L (3.4-5.0); Sodium 136 mmol/L (137-145)
[2020-05-28 14:59] LABS: Lactate Dehydrogenase 2423 U/L (313-618)
[2020-06-05 12:03] LABS: Basophils Absolute Auto 0.1 K/mm3 (0.0-0.1); Basophils Percent Auto 0.8 % (0.2-1.2); Eosinophils Absolute Auto 0.1 K/mm3 (0-0.3); Eosinophils Percent Auto 1.4 % (0-4.4); Hematocrit 40.1 % (42.0-52.0); Hemoglobin 12.8 g/dL (14.0-18.0); Immature Granulocyte Absolute 0.01 K/mm3 (0.00-0.031); Immature Granulocyte Percent A 0.2 % (0-0.5); Lymphocytes Absolute Auto 0.63 K/mm3 (0.9-3.2); Mean Corpuscular HGB Conc 31.9 g/dl (32-36); Mean Corpuscular Hemoglobin 29.8 pg (26-34); Mean Corpuscular Volume 93.3 fl (80-100); Mean Platelet Volume 10.1 fl (7.4-10.4); Monocytes Absolute Auto 0.4 K/mm3 (0.1-0.6); Monocytes Percent Auto 5.5 % (2.6-8.5); Neutrophils Absolute Auto 5.2 K/mm3 (1.3-6.7); Neutrophils Percent Auto 82.1 % (45.5-73.1); Platelet Count Result 210 k/mm3 (150-375); Red Cell Distribution Width 16.9 % (11.5-14.5); White Blood Count 6.3 K/mm3 (4.5-10.0)
[2020-06-05 12:13] LABS: INR 2.1; Prothrombin Time 23.7 Seconds (11.1-14.7)
[2020-06-05 12:15] LABS: Alanine Aminotransferase 89 U/L (4-50); Alkaline Phosphatase 83 U/L (38-126); Anion Gap 7 mmol/L (8-16); Aspartate Amino Transferase 76 U/L (17-59); Bilirubin,Total 0.6 mg/dL (0.2-1.3); Blood Urea Nitrogen 16 mg/dL (9-20); Calcium 9.3 mg/dL (8.4-10.2); Carbon Dioxide 27 mmol/L (22-30); Chloride 101 mmol/L (98-107); Estimated Glomerular Filt Rate > 60; Glucose 200 mg/dL (75-110); Lactate Dehydrogenase 1610 U/L (313-618); Potassium 4.4 mmol/L (3.4-5.0); Sodium 135 mmol/L (137-145)
[2020-06-11 16:16] LABS: Basophils Absolute Auto 0.1 K/mm3 (0.0-0.1); Basophils Percent Auto 0.9 % (0.2-1.2); Eosinophils Absolute Auto 0.1 K/mm3 (0-0.3); Eosinophils Percent Auto 1.8 % (0-4.4); Hematocrit 43.3 % (42.0-52.0); Hemoglobin 13.8 g/dL (14.0-18.0); Immature Granulocyte Absolute 0.01 K/mm3 (0.00-0.031); Immature Granulocyte Percent A 0.2 % (0-0.5); Lymphocytes Absolute Auto 0.73 K/mm3 (0.9-3.2); Lymphocytes Percent Auto 13.1 % (18.3-44.2); Mean Corpuscular HGB Conc 31.9 g/dl (32-36); Mean Platelet Volume 9.5 fl (7.4-10.4); Monocytes Absolute Auto 0.3 K/mm3 (0.1-0.6); Monocytes Percent Auto 6.1 % (2.6-8.5); Neutrophils Absolute Auto 4.3 K/mm3 (1.3-6.7); Neutrophils Percent Auto 77.9 % (45.5-73.1); Platelet Count Result 229 k/mm3 (150-375); Red Blood Count 4.76 M/mm3 (4.6-6.20); Red Cell Distribution Width 15.9 % (11.5-14.5); White Blood Count 5.6 K/mm3 (4.5-10.0)
[2020-06-11 16:26] LABS: INR 2.2; Prothrombin Time 25.1 Seconds (11.1-14.7)
[2020-06-11 16:54] LABS: Alanine Aminotransferase 44 U/L (4-50); Albumin Level 4.2 g/dL (3.5-5.1); Alkaline Phosphatase 88 U/L (38-126); Anion Gap 8 mmol/L (8-16); Aspartate Amino Transferase 46 U/L (17-59); Bilirubin,Total 0.7 mg/dL (0.2-1.3); Blood Urea Nitrogen 20 mg/dL (9-20); Calcium 9.5 mg/dL (8.4-10.2); Carbon Dioxide 28 mmol/L (22-30); Chloride 102 mmol/L (98-107); Estimated Glomerular Filt Rate > 60; Glucose 234 mg/dL (75-110); Lactate Dehydrogenase 1397 U/L (313-618); Potassium 4.4 mmol/L (3.4-5.0); Sodium 138 mmol/L (137-145)
[2020-06-20 16:29] LABS: Basophils Absolute Auto 0.1 K/mm3 (0.0-0.1); Basophils Percent Auto 0.6 % (0.2-1.2); Eosinophils Percent Auto 0.1 % (0-4.4); Hematocrit 21.2 % (42.0-52.0); Immature Granulocyte Absolute 0.06 K/mm3 (0.00-0.031); Immature Granulocyte Percent A 0.6 % (0-0.5); Lymphocytes Percent Auto 4.2 % (18.3-44.2); Mean Corpuscular HGB Conc 30.2 g/dl (32-36); Mean Corpuscular Hemoglobin 29.2 pg (26-34); Mean Corpuscular Volume 96.8 fl (80-100); Monocytes Absolute Auto 0.4 K/mm3 (0.1-0.6); Monocytes Percent Auto 4.3 % (2.6-8.5); Neutrophils Absolute Auto 8.5 K/mm3 (1.3-6.7); Neutrophils Percent Auto 90.2 % (45.5-73.1); Nucleated Red Blood Cells Absolute Auto 0.1 K/mm3 (0.0-0.012); Nucleated Red Blood Cells Perc 0.5 % (0.0-0.2); Platelet Count Result 218 k/mm3 (150-375); Red Blood Count 2.19 M/mm3 (4.6-6.20); Red Cell Distribution Width 17.6 % (11.5-14.5); White Blood Count 9.5 K/mm3 (4.5-10.0)
[2020-06-20 16:44] LABS: Albumin Level 3.5 g/dL (3.5-5.1); Alkaline Phosphatase 61 U/L (38-126); Anion Gap 12 mmol/L (8-16); Aspartate Amino Transferase 36 U/L (17-59); Bilirubin,Total 0.4 mg/dL (0.2-1.3); Blood Urea Nitrogen 32 mg/dL (9-20); Calcium 8.5 mg/dL (8.4-10.2); Carbon Dioxide 22 mmol/L (22-30); Chloride 103 mmol/L (98-107); Estimated Glomerular Filt Rate > 60; Glucose 204 mg/dL (75-110); Lactate Dehydrogenase 807 U/L (313-618); Potassium 4.4 mmol/L (3.4-5.0); Sodium 137 mmol/L (137-145)
[2020-06-20 16:51] LABS: Alanine Aminotransferase 30 U/L (4-50)
[2020-06-20 16:58] LABS: INR 2.4; Prothrombin Time 27.1 Seconds (11.1-14.7)
[2020-06-20 18:06] LABS: Hemoglobin 6.4 g/dL (14.0-18.0)
[2020-06-20 18:07] LABS: Ovalocytes 1+ (NORMAL); Platelet Estimate Adequate (Adequate)
[2020-07-03 16:31] LABS: Basophils Absolute Auto 0.1 K/mm3 (0.0-0.1); Eosinophils Absolute Auto 0.1 K/mm3 (0-0.3); Eosinophils Percent Auto 2.1 % (0-4.4); Hematocrit 38.2 % (42.0-52.0); Hemoglobin 11.7 g/dL (14.0-18.0); Immature Granulocyte Absolute 0.02 K/mm3 (0.00-0.031); Immature Granulocyte Percent A 0.3 % (0-0.5); Lymphocytes Absolute Auto 0.66 K/mm3 (0.9-3.2); Lymphocytes Percent Auto 10.9 % (18.3-44.2); Mean Corpuscular HGB Conc 30.6 g/dl (32-36); Mean Corpuscular Hemoglobin 29.9 pg (26-34); Mean Corpuscular Volume 97.7 fl (80-100); Mean Platelet Volume 10.1 fl (7.4-10.4); Monocytes Absolute Auto 0.4 K/mm3 (0.1-0.6); Monocytes Percent Auto 7.3 % (2.6-8.5); Neutrophils Absolute Auto 4.7 K/mm3 (1.3-6.7); Neutrophils Percent Auto 78.4 % (45.5-73.1); Platelet Count Result 218 k/mm3 (150-375); Red Blood Count 3.91 M/mm3 (4.6-6.20); Red Cell Distribution Width 18.1 % (11.5-14.5); White Blood Count 6.1 K/mm3 (4.5-10.0)
[2020-07-03 16:41] LABS: Prothrombin Time 23.4 Seconds (11.1-14.7)
[2020-07-03 17:05] LABS: Alanine Aminotransferase 59 U/L (4-50); Alkaline Phosphatase 79 U/L (38-126); Anion Gap 7 mmol/L (8-16); Aspartate Amino Transferase 51 U/L (17-59); Bilirubin,Total 0.6 mg/dL (0.2-1.3); Blood Urea Nitrogen 21 mg/dL (9-20); Calcium 9.3 mg/dL (8.4-10.2); Carbon Dioxide 28 mmol/L (22-30); Chloride 104 mmol/L (98-107); Estimated Glomerular Filt Rate > 60; Glucose 214 mg/dL (75-110); Lactate Dehydrogenase 1383 U/L (313-618); Potassium 4.1 mmol/L (3.4-5.0); Sodium 139 mmol/L (137-145)
[2020-07-10 11:48] LABS: Basophils Absolute Auto 0.1 K/mm3 (0.0-0.1); Basophils Percent Auto 0.9 % (0.2-1.2); Eosinophils Absolute Auto 0.1 K/mm3 (0-0.3); Eosinophils Percent Auto 1.2 % (0-4.4); Hematocrit 40.8 % (42.0-52.0); Hemoglobin 12.6 g/dL (14.0-18.0); Immature Granulocyte Absolute 0.02 K/mm3 (0.00-0.031); Immature Granulocyte Percent A 0.3 % (0-0.5); Lymphocytes Absolute Auto 0.51 K/mm3 (0.9-3.2); Lymphocytes Percent Auto 7.5 % (18.3-44.2); Mean Corpuscular HGB Conc 30.9 g/dl (32-36); Mean Corpuscular Hemoglobin 29.6 pg (26-34); Mean Corpuscular Volume 95.8 fl (80-100); Mean Platelet Volume 9.6 fl (7.4-10.4); Monocytes Absolute Auto 0.4 K/mm3 (0.1-0.6); Monocytes Percent Auto 5.2 % (2.6-8.5); Neutrophils Absolute Auto 5.8 K/mm3 (1.3-6.7); Neutrophils Percent Auto 84.9 % (45.5-73.1); Platelet Count Result 252 k/mm3 (150-375); Red Blood Count 4.26 M/mm3 (4.6-6.20); Red Cell Distribution Width 17.1 % (11.5-14.5); White Blood Count 6.8 K/mm3 (4.5-10.0)
[2020-07-10 11:59] LABS: INR 3.4; Prothrombin Time 34.5 Seconds (11.1-14.7)
[2020-07-10 12:11] LABS: Alanine Aminotransferase 28 U/L (4-50); Albumin Level 3.9 g/dL (3.5-5.1); Alkaline Phosphatase 77 U/L (38-126); Anion Gap 7 mmol/L (8-16); Aspartate Amino Transferase 47 U/L (17-59); Bilirubin,Total 0.5 mg/dL (0.2-1.3); Blood Urea Nitrogen 17 mg/dL (9-20); Calcium 8.6 mg/dL (8.4-10.2); Carbon Dioxide 25 mmol/L (22-30); Chloride 105 mmol/L (98-107); Estimated Glomerular Filt Rate > 60; Glucose 210 mg/dL (75-110); Potassium 4.3 mmol/L (3.4-5.0); Sodium 137 mmol/L (137-145)
[2020-07-10 12:53] LABS: Lactate Dehydrogenase 1654 U/L (313-618)
[2020-07-16 12:12] LABS: Basophils Absolute Auto 0.1 K/mm3 (0.0-0.1); Basophils Percent Auto 0.9 % (0.2-1.2); Eosinophils Absolute Auto 0.1 K/mm3 (0-0.3); Eosinophils Percent Auto 1.6 % (0-4.4); Hematocrit 41.1 % (42.0-52.0); Hemoglobin 12.8 g/dL (14.0-18.0); Immature Granulocyte Absolute 0.01 K/mm3 (0.00-0.031); Immature Granulocyte Percent A 0.2 % (0-0.5); Lymphocytes Absolute Auto 0.56 K/mm3 (0.9-3.2); Lymphocytes Percent Auto 9.8 % (18.3-44.2); Mean Corpuscular HGB Conc 31.1 g/dl (32-36); Mean Corpuscular Hemoglobin 29.2 pg (26-34); Mean Corpuscular Volume 93.8 fl (80-100); Mean Platelet Volume 10.8 fl (7.4-10.4); Monocytes Absolute Auto 0.3 K/mm3 (0.1-0.6); Monocytes Percent Auto 4.7 % (2.6-8.5); Neutrophils Absolute Auto 4.7 K/mm3 (1.3-6.7); Neutrophils Percent Auto 82.8 % (45.5-73.1); Platelet Count Result 220 k/mm3 (150-375); Red Blood Count 4.38 M/mm3 (4.6-6.20); Red Cell Distribution Width 15.9 % (11.5-14.5); White Blood Count 5.7 K/mm3 (4.5-10.0)
[2020-07-16 12:24] LABS: Alanine Aminotransferase 23 U/L (4-50); Albumin Level 4.2 g/dL (3.5-5.1); Alkaline Phosphatase 82 U/L (38-126); Anion Gap 5 mmol/L (8-16); Aspartate Amino Transferase 34 U/L (17-59); Bilirubin,Total 0.5 mg/dL (0.2-1.3); Blood Urea Nitrogen 18 mg/dL (9-20); Calcium 9.1 mg/dL (8.4-10.2); Carbon Dioxide 29 mmol/L (22-30); Chloride 104 mmol/L (98-107); Estimated Glomerular Filt Rate > 60; Glucose 204 mg/dL (75-110); INR 3.6; Lactate Dehydrogenase 1369 U/L (313-618); Prothrombin Time 36.2 Seconds (11.1-14.7); Sodium 138 mmol/L (137-145)
[2020-07-23 11:47] LABS: Basophils Absolute Auto 0.1 K/mm3 (0.0-0.1); Basophils Percent Auto 0.7 % (0.2-1.2); Eosinophils Absolute Auto 0.1 K/mm3 (0-0.3); Eosinophils Percent Auto 1.1 % (0-4.4); Hematocrit 44.2 % (42.0-52.0); Hemoglobin 13.5 g/dL (14.0-18.0); Immature Granulocyte Absolute 0.02 K/mm3 (0.00-0.031); Immature Granulocyte Percent A 0.3 % (0-0.5); Lymphocytes Absolute Auto 0.69 K/mm3 (0.9-3.2); Lymphocytes Percent Auto 9.8 % (18.3-44.2); Mean Corpuscular HGB Conc 30.5 g/dl (32-36); Mean Corpuscular Hemoglobin 28.3 pg (26-34); Mean Corpuscular Volume 92.7 fl (80-100); Mean Platelet Volume 10.5 fl (7.4-10.4); Monocytes Absolute Auto 0.4 K/mm3 (0.1-0.6); Monocytes Percent Auto 5.6 % (2.6-8.5); Neutrophils Absolute Auto 5.8 K/mm3 (1.3-6.7); Neutrophils Percent Auto 82.5 % (45.5-73.1); Platelet Count Result 196 k/mm3 (150-375); Red Blood Count 4.77 M/mm3 (4.6-6.20); Red Cell Distribution Width 15.8 % (11.5-14.5)
[2020-07-23 11:57] LABS: INR 4.8; Prothrombin Time 45.2 Seconds (11.1-14.7)
[2020-07-23 12:00] LABS: Alanine Aminotransferase 22 U/L (4-50); Albumin Level 4.1 g/dL (3.5-5.1); Alkaline Phosphatase 90 U/L (38-126); Anion Gap 7 mmol/L (8-16); Aspartate Amino Transferase 34 U/L (17-59); Bilirubin,Total 0.3 mg/dL (0.2-1.3); Blood Urea Nitrogen 17 mg/dL (9-20); Calcium 9.1 mg/dL (8.4-10.2); Carbon Dioxide 26 mmol/L (22-30); Chloride 104 mmol/L (98-107); Estimated Glomerular Filt Rate > 60; Glucose 255 mg/dL (75-110); Lactate Dehydrogenase 1053 U/L (313-618); Potassium 4.4 mmol/L (3.4-5.0); Sodium 137 mmol/L (137-145)
[2020-07-30 11:55] LABS: Basophils Percent Auto 0.6 % (0.2-1.2); Eosinophils Absolute Auto 0.1 K/mm3 (0-0.3); Eosinophils Percent Auto 1.9 % (0-4.4); Hematocrit 46.6 % (42.0-52.0); Hemoglobin 14.7 g/dL (14.0-18.0); Immature Granulocyte Absolute 0.02 K/mm3 (0.00-0.031); Immature Granulocyte Percent A 0.3 % (0-0.5); Lymphocytes Percent Auto 7.9 % (18.3-44.2); Mean Corpuscular HGB Conc 31.5 g/dl (32-36); Mean Corpuscular Hemoglobin 28.6 pg (26-34); Mean Corpuscular Volume 90.7 fl (80-100); Mean Platelet Volume 10.4 fl (7.4-10.4); Monocytes Absolute Auto 0.4 K/mm3 (0.1-0.6); Neutrophils Absolute Auto 5.2 K/mm3 (1.3-6.7); Neutrophils Percent Auto 83.3 % (45.5-73.1); Platelet Count Result 202 k/mm3 (150-375); Red Blood Count 5.14 M/mm3 (4.6-6.20); Red Cell Distribution Width 15.8 % (11.5-14.5); White Blood Count 6.3 K/mm3 (4.5-10.0)
[2020-07-30 12:07] LABS: Prothrombin Time 31.8 Seconds (11.1-14.7)
[2020-07-30 12:44] LABS: Alanine Aminotransferase 23 U/L (4-50); Albumin Level 4.3 g/dL (3.5-5.1); Alkaline Phosphatase 87 U/L (38-126); Anion Gap 7 mmol/L (8-16); Aspartate Amino Transferase 39 U/L (17-59); Bilirubin,Total 0.4 mg/dL (0.2-1.3); Blood Urea Nitrogen 13 mg/dL (9-20); Calcium 9.3 mg/dL (8.4-10.2); Carbon Dioxide 27 mmol/L (22-30); Chloride 105 mmol/L (98-107); Estimated Glomerular Filt Rate > 60; Glucose 166 mg/dL (75-110); Lactate Dehydrogenase 1108 U/L (313-618); Sodium 139 mmol/L (137-145)
[2020-08-06 11:48] LABS: Basophils Absolute Auto 0.1 K/mm3 (0.0-0.1); Basophils Percent Auto 0.8 % (0.2-1.2); Eosinophils Absolute Auto 0.1 K/mm3 (0-0.3); Eosinophils Percent Auto 0.8 % (0-4.4); Hematocrit 44.5 % (42.0-52.0); Hemoglobin 14.2 g/dL (14.0-18.0); Immature Granulocyte Absolute 0.02 K/mm3 (0.00-0.031); Immature Granulocyte Percent A 0.3 % (0-0.5); Lymphocytes Absolute Auto 0.63 K/mm3 (0.9-3.2); Lymphocytes Percent Auto 8.8 % (18.3-44.2); Mean Corpuscular HGB Conc 31.9 g/dl (32-36); Mean Corpuscular Volume 87.6 fl (80-100); Mean Platelet Volume 10.6 fl (7.4-10.4); Monocytes Absolute Auto 0.4 K/mm3 (0.1-0.6); Monocytes Percent Auto 5.3 % (2.6-8.5); Platelet Count Result 207 k/mm3 (150-375); Red Blood Count 5.08 M/mm3 (4.6-6.20); Red Cell Distribution Width 15.2 % (11.5-14.5); White Blood Count 7.1 K/mm3 (4.5-10.0)
[2020-08-06 11:58] LABS: INR 3.2; Prothrombin Time 33.3 Seconds (11.1-14.7)
[2020-08-06 12:00] LABS: Alanine Aminotransferase 22 U/L (4-50); Albumin Level 4.1 g/dL (3.5-5.1); Alkaline Phosphatase 86 U/L (38-126); Anion Gap 8 mmol/L (8-16); Aspartate Amino Transferase 34 U/L (17-59); Bilirubin,Total 0.4 mg/dL (0.2-1.3); Blood Urea Nitrogen 16 mg/dL (9-20); Carbon Dioxide 25 mmol/L (22-30); Chloride 106 mmol/L (98-107); Estimated Glomerular Filt Rate > 60; Glucose 212 mg/dL (75-110); Lactate Dehydrogenase 1031 U/L (313-618); Potassium 3.8 mmol/L (3.4-5.0); Sodium 139 mmol/L (137-145)
[2020-08-13 11:13] LABS: Basophils Absolute Auto 0.1 K/mm3 (0.0-0.1); Basophils Percent Auto 0.8 % (0.2-1.2); Eosinophils Absolute Auto 0.1 K/mm3 (0-0.3); Eosinophils Percent Auto 1.2 % (0-4.4); Hematocrit 45.2 % (42.0-52.0); Hemoglobin 14.2 g/dL (14.0-18.0); Immature Granulocyte Absolute 0.01 K/mm3 (0.00-0.031); Immature Granulocyte Percent A 0.2 % (0-0.5); Lymphocytes Absolute Auto 0.61 K/mm3 (0.9-3.2); Lymphocytes Percent Auto 9.5 % (18.3-44.2); Mean Corpuscular HGB Conc 31.4 g/dl (32-36); Mean Corpuscular Hemoglobin 28.4 pg (26-34); Mean Corpuscular Volume 90.4 fl (80-100); Mean Platelet Volume 10.2 fl (7.4-10.4); Monocytes Absolute Auto 0.4 K/mm3 (0.1-0.6); Monocytes Percent Auto 6.4 % (2.6-8.5); Neutrophils Absolute Auto 5.3 K/mm3 (1.3-6.7); Neutrophils Percent Auto 81.9 % (45.5-73.1); Platelet Count Result 192 k/mm3 (150-375); Red Cell Distribution Width 15.4 % (11.5-14.5); White Blood Count 6.4 K/mm3 (4.5-10.0)
[2020-08-13 11:23] LABS: INR 2.4; Prothrombin Time 26.4 Seconds (11.1-14.7)
[2020-08-13 11:26] LABS: Alanine Aminotransferase 21 U/L (4-50); Albumin Level 4.3 g/dL (3.5-5.1); Alkaline Phosphatase 94 U/L (38-126); Anion Gap 6 mmol/L (8-16); Aspartate Amino Transferase 34 U/L (17-59); Bilirubin,Total 0.5 mg/dL (0.2-1.3); Blood Urea Nitrogen 16 mg/dL (9-20); Calcium 9.3 mg/dL (8.4-10.2); Carbon Dioxide 29 mmol/L (22-30); Chloride 102 mmol/L (98-107); Estimated Glomerular Filt Rate > 60; Glucose 234 mg/dL (75-110); Lactate Dehydrogenase 1027 U/L (313-618); Potassium 4.4 mmol/L (3.4-5.0); Sodium 137 mmol/L (137-145)
== END 2020-08-26 23:59 | disposition home or self-care (01) ==
LOC: ANHLAB 10:52
PROVIDERS: PCP Internal Medicine
DX: Z51.81 Encounter for therapeutic drug level monitoring (principal); Z95.811 Presence of heart assist device; Z79.899 Other long term (current) drug therapy
CPT/HCPCS: 36415; 80053; 83615; 85025; 85610

== ENCOUNTER 2020-11-12 11:44 | Outpatient (RCR) | payer MEDICARE, SELFPAY ==
[2020-08-27 12:15] LABS: Basophils Percent Auto 0.5 % (0.2-1.2); Eosinophils Percent Auto 0.5 % (0-4.4); Hemoglobin 14.8 g/dL (14.0-18.0); Immature Granulocyte Absolute 0.02 K/mm3 (0.00-0.031); Immature Granulocyte Percent A 0.3 % (0-0.5); Lymphocytes Absolute Auto 0.64 K/mm3 (0.9-3.2); Mean Corpuscular HGB Conc 31.5 g/dl (32-36); Mean Corpuscular Hemoglobin 27.7 pg (26-34); Mean Corpuscular Volume 87.9 fl (80-100); Mean Platelet Volume 11.3 fl (7.4-10.4); Monocytes Absolute Auto 0.4 K/mm3 (0.1-0.6); Monocytes Percent Auto 5.3 % (2.6-8.5); Neutrophils Absolute Auto 6.8 K/mm3 (1.3-6.7); Neutrophils Percent Auto 85.4 % (45.5-73.1); Platelet Count Result 219 k/mm3 (150-375); Red Blood Count 5.35 M/mm3 (4.6-6.20); Red Cell Distribution Width 15.4 % (11.5-14.5)
[2020-08-27 13:05] LABS: INR 2.6; Prothrombin Time 28.4 Seconds (11.1-14.7)
[2020-08-27 13:33] LABS: Alanine Aminotransferase 21 U/L (4-50); Albumin Level 4.2 g/dL (3.5-5.1); Alkaline Phosphatase 88 U/L (38-126); Anion Gap 7 mmol/L (8-16); Aspartate Amino Transferase 36 U/L (17-59); Bilirubin,Total 0.4 mg/dL (0.2-1.3); Blood Urea Nitrogen 14 mg/dL (9-20); Calcium 9.2 mg/dL (8.4-10.2); Carbon Dioxide 29 mmol/L (22-30); Chloride 104 mmol/L (98-107); Estimated Glomerular Filt Rate > 60; Glucose 208 mg/dL (75-110); Lactate Dehydrogenase 1037 U/L (313-618); Sodium 140 mmol/L (137-145)
[2020-09-10 11:45] LABS: Basophils Absolute Auto 0.1 K/mm3 (0.0-0.1); Basophils Percent Auto 0.8 % (0.2-1.2); Eosinophils Absolute Auto 0.1 K/mm3 (0-0.3); Eosinophils Percent Auto 1.1 % (0-4.4); Hematocrit 47.1 % (42.0-52.0); Hemoglobin 14.8 g/dL (14.0-18.0); Immature Granulocyte Absolute 0.02 K/mm3 (0.00-0.031); Immature Granulocyte Percent A 0.3 % (0-0.5); Lymphocytes Percent Auto 9.6 % (18.3-44.2); Mean Corpuscular HGB Conc 31.4 g/dl (32-36); Mean Corpuscular Hemoglobin 27.8 pg (26-34); Mean Corpuscular Volume 88.5 fl (80-100); Mean Platelet Volume 10.9 fl (7.4-10.4); Monocytes Absolute Auto 0.4 K/mm3 (0.1-0.6); Monocytes Percent Auto 5.4 % (2.6-8.5); Neutrophils Percent Auto 82.8 % (45.5-73.1); Platelet Count Result 176 k/mm3 (150-375); Red Blood Count 5.32 M/mm3 (4.6-6.20); Red Cell Distribution Width 15.8 % (11.5-14.5); White Blood Count 7.3 K/mm3 (4.5-10.0)
[2020-09-10 12:00] LABS: INR 2.9; Prothrombin Time 30.9 Seconds (11.1-14.7)
[2020-09-10 12:13] LABS: Alanine Aminotransferase 20 U/L (4-50); Albumin Level 4.2 g/dL (3.5-5.1); Alkaline Phosphatase 88 U/L (38-126); Anion Gap 8 mmol/L (8-16); Aspartate Amino Transferase 41 U/L (17-59); Bilirubin,Total 0.7 mg/dL (0.2-1.3); Blood Urea Nitrogen 16 mg/dL (9-20); Carbon Dioxide 22 mmol/L (22-30); Chloride 106 mmol/L (98-107); Estimated Glomerular Filt Rate > 60; Glucose 257 mg/dL (75-110); Lactate Dehydrogenase 1245 U/L (313-618); Potassium 4.5 mmol/L (3.4-5.0); Sodium 136 mmol/L (137-145)
[2020-09-24 11:28] LABS: Basophils Absolute Auto 0.1 K/mm3 (0.0-0.1); Basophils Percent Auto 0.7 % (0.2-1.2); Eosinophils Absolute Auto 0.1 K/mm3 (0-0.3); Eosinophils Percent Auto 0.9 % (0-4.4); Hematocrit 49.1 % (42.0-52.0); Hemoglobin 15.8 g/dL (14.0-18.0); Immature Granulocyte Absolute 0.01 K/mm3 (0.00-0.031); Immature Granulocyte Percent A 0.1 % (0-0.5); Lymphocytes Absolute Auto 0.66 K/mm3 (0.9-3.2); Lymphocytes Percent Auto 8.9 % (18.3-44.2); Mean Corpuscular HGB Conc 32.2 g/dl (32-36); Mean Corpuscular Hemoglobin 27.7 pg (26-34); Mean Corpuscular Volume 86.1 fl (80-100); Mean Platelet Volume 10.8 fl (7.4-10.4); Monocytes Absolute Auto 0.4 K/mm3 (0.1-0.6); Monocytes Percent Auto 5.8 % (2.6-8.5); Neutrophils Absolute Auto 6.2 K/mm3 (1.3-6.7); Neutrophils Percent Auto 83.6 % (45.5-73.1); Platelet Count Result 202 k/mm3 (150-375); Red Cell Distribution Width 16.1 % (11.5-14.5); White Blood Count 7.4 K/mm3 (4.5-10.0)
[2020-09-24 11:37] LABS: INR 2.3; Prothrombin Time 25.5 Seconds (11.1-14.7)
[2020-09-24 11:38] LABS: Alanine Aminotransferase 22 U/L (4-50); Albumin Level 4.5 g/dL (3.5-5.1); Alkaline Phosphatase 94 U/L (38-126); Anion Gap 7 mmol/L (8-16); Aspartate Amino Transferase 36 U/L (17-59); Bilirubin,Total 0.5 mg/dL (0.2-1.3); Blood Urea Nitrogen 16 mg/dL (9-20); Calcium 9.7 mg/dL (8.4-10.2); Carbon Dioxide 29 mmol/L (22-30); Chloride 102 mmol/L (98-107); Estimated Glomerular Filt Rate > 60; Glucose 252 mg/dL (75-110); Lactate Dehydrogenase 1093 U/L (313-618); Potassium 4.2 mmol/L (3.4-5.0); Sodium 138 mmol/L (137-145)
[2020-10-16 12:03] LABS: Basophils Absolute Auto 0.1 K/mm3 (0.0-0.1); Basophils Percent Auto 0.9 % (0.2-1.2); Eosinophils Percent Auto 0.5 % (0-4.4); Hematocrit 50.9 % (42.0-52.0); Hemoglobin 16.2 g/dL (14.0-18.0); Immature Granulocyte Absolute 0.03 K/mm3 (0.00-0.031); Immature Granulocyte Percent A 0.4 % (0-0.5); Lymphocytes Absolute Auto 0.55 K/mm3 (0.9-3.2); Lymphocytes Percent Auto 6.7 % (18.3-44.2); Mean Corpuscular HGB Conc 31.8 g/dl (32-36); Mean Corpuscular Volume 88.1 fl (80-100); Mean Platelet Volume 10.5 fl (7.4-10.4); Monocytes Absolute Auto 0.4 K/mm3 (0.1-0.6); Monocytes Percent Auto 4.9 % (2.6-8.5); Neutrophils Absolute Auto 7.1 K/mm3 (1.3-6.7); Neutrophils Percent Auto 86.6 % (45.5-73.1); Platelet Count Result 185 k/mm3 (150-375); Red Blood Count 5.78 M/mm3 (4.6-6.20); Red Cell Distribution Width 17.9 % (11.5-14.5); White Blood Count 8.2 K/mm3 (4.5-10.0)
[2020-10-16 12:23] LABS: Alanine Aminotransferase 23 U/L (4-50); Albumin Level 4.4 g/dL (3.5-5.1); Alkaline Phosphatase 88 U/L (38-126); Anion Gap 11 mmol/L (8-16); Aspartate Amino Transferase 35 U/L (17-59); Bilirubin,Total 0.6 mg/dL (0.2-1.3); Blood Urea Nitrogen 14 mg/dL (9-20); Calcium 9.6 mg/dL (8.4-10.2); Carbon Dioxide 26 mmol/L (22-30); Chloride 106 mmol/L (98-107); Estimated Glomerular Filt Rate > 60; Glucose 177 mg/dL (75-110); INR 1.6; Lactate Dehydrogenase 1093 U/L (313-618); Potassium 4.5 mmol/L (3.4-5.0); Prothrombin Time 19.4 Seconds (11.1-14.7); Sodium 143 mmol/L (137-145)
[2020-10-30 12:13] LABS: Basophils Absolute Auto 0.1 K/mm3 (0.0-0.1); Basophils Percent Auto 0.8 % (0.2-1.2); Eosinophils Absolute Auto 0.1 K/mm3 (0-0.3); Eosinophils Percent Auto 0.9 % (0-4.4); Hematocrit 48.8 % (42.0-52.0); Hemoglobin 15.5 g/dL (14.0-18.0); Immature Granulocyte Absolute 0.03 K/mm3 (0.00-0.031); Immature Granulocyte Percent A 0.4 % (0-0.5); Lymphocytes Absolute Auto 0.69 K/mm3 (0.9-3.2); Lymphocytes Percent Auto 8.6 % (18.3-44.2); Mean Corpuscular HGB Conc 31.8 g/dl (32-36); Mean Corpuscular Hemoglobin 28.2 pg (26-34); Mean Corpuscular Volume 88.9 fl (80-100); Mean Platelet Volume 10.8 fl (7.4-10.4); Monocytes Absolute Auto 0.5 K/mm3 (0.1-0.6); Monocytes Percent Auto 6.6 % (2.6-8.5); Neutrophils Absolute Auto 6.6 K/mm3 (1.3-6.7); Neutrophils Percent Auto 82.7 % (45.5-73.1); Platelet Count Result 164 k/mm3 (150-375); Red Blood Count 5.49 M/mm3 (4.6-6.20); Red Cell Distribution Width 17.2 % (11.5-14.5)
[2020-10-30 12:23] LABS: INR 1.7; Prothrombin Time 20.8 Seconds (11.1-14.7)
[2020-10-30 12:24] LABS: Alanine Aminotransferase 19 U/L (4-50); Albumin Level 4.1 g/dL (3.5-5.1); Alkaline Phosphatase 79 U/L (38-126); Anion Gap 9 mmol/L (8-16); Aspartate Amino Transferase 30 U/L (17-59); Bilirubin,Total 0.6 mg/dL (0.2-1.3); Blood Urea Nitrogen 17 mg/dL (9-20); Calcium 9.2 mg/dL (8.4-10.2); Carbon Dioxide 26 mmol/L (22-30); Chloride 105 mmol/L (98-107); Estimated Glomerular Filt Rate > 60; Glucose 153 mg/dL (75-110); Lactate Dehydrogenase 1001 U/L (313-618); Potassium 4.1 mmol/L (3.4-5.0); Sodium 140 mmol/L (137-145)
[2020-11-12 12:15] LABS: Basophils Absolute Auto 0.1 K/mm3 (0.0-0.1); Basophils Percent Auto 0.8 % (0.2-1.2); Eosinophils Absolute Auto 0.1 K/mm3 (0-0.3); Eosinophils Percent Auto 0.6 % (0-4.4); Hematocrit 49.1 % (42.0-52.0); Hemoglobin 15.7 g/dL (14.0-18.0); Immature Granulocyte Absolute 0.02 K/mm3 (0.00-0.031); Immature Granulocyte Percent A 0.3 % (0-0.5); Lymphocytes Absolute Auto 0.56 K/mm3 (0.9-3.2); Lymphocytes Percent Auto 7.2 % (18.3-44.2); Mean Corpuscular Hemoglobin 28.2 pg (26-34); Mean Corpuscular Volume 88.3 fl (80-100); Mean Platelet Volume 10.5 fl (7.4-10.4); Monocytes Absolute Auto 0.5 K/mm3 (0.1-0.6); Monocytes Percent Auto 5.8 % (2.6-8.5); Neutrophils Absolute Auto 6.6 K/mm3 (1.3-6.7); Neutrophils Percent Auto 85.3 % (45.5-73.1); Platelet Count Result 186 k/mm3 (150-375); Red Blood Count 5.56 M/mm3 (4.6-6.20); Red Cell Distribution Width 16.9 % (11.5-14.5); White Blood Count 7.8 K/mm3 (4.5-10.0)
[2020-11-12 12:24] LABS: Alanine Aminotransferase 20 U/L (4-50); Albumin Level 4.1 g/dL (3.5-5.1); Alkaline Phosphatase 85 U/L (38-126); Anion Gap 7 mmol/L (8-16); Aspartate Amino Transferase 31 U/L (17-59); Bilirubin,Total 0.7 mg/dL (0.2-1.3); Blood Urea Nitrogen 17 mg/dL (9-20); Calcium 9.4 mg/dL (8.4-10.2); Carbon Dioxide 27 mmol/L (22-30); Chloride 105 mmol/L (98-107); Estimated Glomerular Filt Rate > 60; Glucose 211 mg/dL (75-110); Lactate Dehydrogenase 980 U/L (313-618); Sodium 139 mmol/L (137-145)
[2020-11-12 12:25] LABS: INR 2.2; Prothrombin Time 24.9 Seconds (11.1-14.7)
== END 2020-11-25 23:59 | disposition home or self-care (01) ==
LOC: ANHLAB 11:44
PROVIDERS: PCP Internal Medicine
DX: Z95.811 Presence of heart assist device (principal)
CPT/HCPCS: 36415; 80053; 83615; 85025; 85610

== ENCOUNTER 2021-01-02 12:23 | Outpatient (CLI) | payer MEDICARE, SELFPAY ==
[2021-01-02 13:21] LABS: Cholesterol 90 mg/dL (0-200); HDL Direct 31 mg/dL; Triglycerides 148 mg/dL (<150)
[2021-01-02 13:24] LABS: Hemoglobin A1C 7.4 % (<5.7)
[2021-01-02 13:44] LABS: Creatinine Urine 15.6 mg/dL
[2021-01-02 13:48] LABS: MALB Creatinine Ratio 544.2 mg/g (0-30); Microalbumin Urine Random 84.9 mg/L (0-16.7)
[2021-01-02 13:59] LABS: Free T4 Free Thyroxine 1.08 ng/mL (0.78-2.19)
[2021-01-02 17:35] LABS: LDL Cholesterol Direct < 30 mg/dL
== END 2021-01-02 12:24 | disposition home or self-care (01) ==
PROVIDERS: PCP Internal Medicine
DX: E78.5 Hyperlipidemia, unspecified (principal); E11.65 Type 2 diabetes mellitus with hyperglycemia; E03.9 Hypothyroidism, unspecified; Z79.4 Long term (current) use of insulin
CPT/HCPCS: 36415; 80061; 82043; 83036; 84439; 84443

== ENCOUNTER 2021-02-19 11:32 | Outpatient (RCR) | payer MEDICARE, SELFPAY ==
[2020-12-04 12:07] LABS: Basophils Absolute Auto 0.1 K/mm3 (0.0-0.1); Basophils Percent Auto 0.8 % (0.2-1.2); Eosinophils Absolute Auto 0.1 K/mm3 (0-0.3); Eosinophils Percent Auto 0.8 % (0-4.4); Hematocrit 49.1 % (42.0-52.0); Hemoglobin 15.6 g/dL (14.0-18.0); Immature Granulocyte Absolute 0.02 K/mm3 (0.00-0.031); Immature Granulocyte Percent A 0.3 % (0-0.5); Lymphocytes Absolute Auto 0.59 K/mm3 (0.9-3.2); Lymphocytes Percent Auto 7.9 % (18.3-44.2); Mean Corpuscular HGB Conc 31.8 g/dl (32-36); Mean Corpuscular Hemoglobin 28.5 pg (26-34); Mean Corpuscular Volume 89.8 fl (80-100); Mean Platelet Volume 10.7 fl (7.4-10.4); Monocytes Absolute Auto 0.4 K/mm3 (0.1-0.6); Monocytes Percent Auto 5.7 % (2.6-8.5); Neutrophils Absolute Auto 6.3 K/mm3 (1.3-6.7); Neutrophils Percent Auto 84.5 % (45.5-73.1); Platelet Count Result 172 k/mm3 (150-375); Red Blood Count 5.47 M/mm3 (4.6-6.20); Red Cell Distribution Width 16.6 % (11.5-14.5); White Blood Count 7.5 K/mm3 (4.5-10.0)
[2020-12-04 12:14] LABS: Alanine Aminotransferase 22 U/L (4-50); Albumin Level 4.1 g/dL (3.5-5.1); Alkaline Phosphatase 85 U/L (38-126); Anion Gap 12 mmol/L (8-16); Aspartate Amino Transferase 30 U/L (17-59); Bilirubin,Total 0.7 mg/dL (0.2-1.3); Blood Urea Nitrogen 17 mg/dL (9-20); Calcium 9.3 mg/dL (8.4-10.2); Carbon Dioxide 23 mmol/L (22-30); Chloride 103 mmol/L (98-107); Estimated Glomerular Filt Rate > 60; Glucose 233 mg/dL (65-110); Lactate Dehydrogenase 1028 U/L (313-618); Potassium 4.2 mmol/L (3.4-5.0); Sodium 138 mmol/L (137-145)
[2020-12-04 12:20] LABS: INR 2.3; Prothrombin Time 24.6 Seconds (11.1-14.7)
[2020-12-24 11:56] LABS: Basophils Absolute Auto 0.1 K/mm3 (0.0-0.1); Basophils Percent Auto 0.6 % (0.2-1.2); Eosinophils Absolute Auto 0.1 K/mm3 (0-0.3); Eosinophils Percent Auto 0.7 % (0-4.4); Hematocrit 49.7 % (42.0-52.0); Hemoglobin 15.7 g/dL (14.0-18.0); Immature Granulocyte Absolute 0.04 K/mm3 (0.00-0.031); Immature Granulocyte Percent A 0.5 % (0-0.5); Lymphocytes Absolute Auto 0.68 K/mm3 (0.9-3.2); Lymphocytes Percent Auto 7.7 % (18.3-44.2); Mean Corpuscular HGB Conc 31.6 g/dl (32-36); Mean Corpuscular Hemoglobin 28.9 pg (26-34); Mean Corpuscular Volume 91.4 fl (80-100); Mean Platelet Volume 10.8 fl (7.4-10.4); Monocytes Absolute Auto 0.5 K/mm3 (0.1-0.6); Monocytes Percent Auto 5.5 % (2.6-8.5); Neutrophils Absolute Auto 7.5 K/mm3 (1.3-6.7); Platelet Count Result 179 k/mm3 (150-375); Red Blood Count 5.44 M/mm3 (4.6-6.20); Red Cell Distribution Width 16.3 % (11.5-14.5); White Blood Count 8.8 K/mm3 (4.5-10.0)
[2020-12-24 12:05] LABS: INR 1.2; Prothrombin Time 14.6 Seconds (11.1-14.7)
[2020-12-24 12:08] LABS: Alanine Aminotransferase 24 U/L (4-50); Albumin Level 4.2 g/dL (3.5-5.1); Alkaline Phosphatase 99 U/L (38-126); Anion Gap 6 mmol/L (8-16); Aspartate Amino Transferase 33 U/L (17-59); Bilirubin,Total 0.7 mg/dL (0.2-1.3); Blood Urea Nitrogen 19 mg/dL (9-20); Calcium 9.5 mg/dL (8.4-10.2); Carbon Dioxide 27 mmol/L (22-30); Chloride 104 mmol/L (98-107); Estimated Glomerular Filt Rate > 60; Glucose 172 mg/dL (65-110); Lactate Dehydrogenase 1071 U/L (313-618); Potassium 4.5 mmol/L (3.4-5.0); Sodium 137 mmol/L (137-145)
[2020-12-31 11:35] LABS: Basophils Absolute Auto 0.1 K/mm3 (0.0-0.1); Basophils Percent Auto 0.7 % (0.2-1.2); Eosinophils Absolute Auto 0.1 K/mm3 (0-0.3); Hematocrit 50.3 % (42.0-52.0); Hemoglobin 15.9 g/dL (14.0-18.0); Immature Granulocyte Absolute 0.04 K/mm3 (0.00-0.031); Immature Granulocyte Percent A 0.5 % (0-0.5); Lymphocytes Percent Auto 7.4 % (18.3-44.2); Mean Corpuscular HGB Conc 31.6 g/dl (32-36); Mean Corpuscular Hemoglobin 28.8 pg (26-34); Mean Platelet Volume 10.6 fl (7.4-10.4); Monocytes Absolute Auto 0.5 K/mm3 (0.1-0.6); Monocytes Percent Auto 6.2 % (2.6-8.5); Neutrophils Absolute Auto 6.8 K/mm3 (1.3-6.7); Neutrophils Percent Auto 84.2 % (45.5-73.1); Platelet Count Result 154 k/mm3 (150-375); Red Blood Count 5.53 M/mm3 (4.6-6.20); Red Cell Distribution Width 15.9 % (11.5-14.5); White Blood Count 8.1 K/mm3 (4.5-10.0)
[2020-12-31 11:44] LABS: INR 1.6; Prothrombin Time 19.1 Seconds (11.1-14.7)
[2020-12-31 11:55] LABS: Alanine Aminotransferase 22 U/L (4-50); Albumin Level 4.1 g/dL (3.5-5.1); Alkaline Phosphatase 90 U/L (38-126); Anion Gap 5 mmol/L (8-16); Aspartate Amino Transferase 31 U/L (17-59); Bilirubin,Total 0.6 mg/dL (0.2-1.3); Blood Urea Nitrogen 18 mg/dL (9-20); Calcium 8.9 mg/dL (8.4-10.2); Carbon Dioxide 27 mmol/L (22-30); Chloride 103 mmol/L (98-107); Estimated Glomerular Filt Rate > 60; Glucose 251 mg/dL (65-110); Potassium 4.5 mmol/L (3.4-5.0); Sodium 135 mmol/L (137-145)
[2020-12-31 15:31] LABS: Lactate Dehydrogenase 1381 U/L (313-618)
[2021-01-07 11:52] LABS: Basophils Percent Auto 0.6 % (0.2-1.2); Eosinophils Percent Auto 0.5 % (0-4.4); Hematocrit 48.8 % (42.0-52.0); Hemoglobin 15.9 g/dL (14.0-18.0); Immature Granulocyte Absolute 0.02 K/mm3 (0.00-0.031); Immature Granulocyte Percent A 0.3 % (0-0.5); Lymphocytes Absolute Auto 0.57 K/mm3 (0.9-3.2); Mean Corpuscular HGB Conc 32.6 g/dl (32-36); Mean Corpuscular Hemoglobin 29.4 pg (26-34); Mean Corpuscular Volume 90.4 fl (80-100); Mean Platelet Volume 10.6 fl (7.4-10.4); Monocytes Absolute Auto 0.4 K/mm3 (0.1-0.6); Monocytes Percent Auto 5.5 % (2.6-8.5); Neutrophils Absolute Auto 5.3 K/mm3 (1.3-6.7); Neutrophils Percent Auto 84.1 % (45.5-73.1); Platelet Count Result 167 k/mm3 (150-375); Red Cell Distribution Width 15.8 % (11.5-14.5); White Blood Count 6.3 K/mm3 (4.5-10.0)
[2021-01-07 12:01] LABS: Alanine Aminotransferase 25 U/L (4-50); Albumin Level 3.9 g/dL (3.5-5.1); Alkaline Phosphatase 87 U/L (38-126); Anion Gap 8 mmol/L (8-16); Aspartate Amino Transferase 39 U/L (17-59); Bilirubin,Total 0.7 mg/dL (0.2-1.3); Blood Urea Nitrogen 15 mg/dL (9-20); Calcium 8.8 mg/dL (8.4-10.2); Carbon Dioxide 23 mmol/L (22-30); Chloride 105 mmol/L (98-107); Estimated Glomerular Filt Rate > 60; Glucose 250 mg/dL (65-110); Lactate Dehydrogenase 1037 U/L (313-618); Potassium 4.1 mmol/L (3.4-5.0); Sodium 136 mmol/L (137-145)
[2021-01-07 12:07] LABS: INR 2.9; Prothrombin Time 29.8 Seconds (11.1-14.7)
[2021-01-22 11:50] LABS: Basophils Absolute Auto 0.1 K/mm3 (0.0-0.1); Basophils Percent Auto 0.6 % (0.2-1.2); Eosinophils Absolute Auto 0.1 K/mm3 (0-0.3); Eosinophils Percent Auto 0.7 % (0-4.4); Hematocrit 49.7 % (42.0-52.0); Hemoglobin 15.9 g/dL (14.0-18.0); Immature Granulocyte Absolute 0.04 K/mm3 (0.00-0.031); Immature Granulocyte Percent A 0.4 % (0-0.5); Lymphocytes Absolute Auto 0.63 K/mm3 (0.9-3.2); Lymphocytes Percent Auto 6.7 % (18.3-44.2); Mean Corpuscular Volume 90.7 fl (80-100); Mean Platelet Volume 10.8 fl (7.4-10.4); Monocytes Absolute Auto 0.5 K/mm3 (0.1-0.6); Monocytes Percent Auto 5.7 % (2.6-8.5); Neutrophils Absolute Auto 8.1 K/mm3 (1.3-6.7); Neutrophils Percent Auto 85.9 % (45.5-73.1); Platelet Count Result 168 k/mm3 (150-375); Red Blood Count 5.48 M/mm3 (4.6-6.20); Red Cell Distribution Width 15.4 % (11.5-14.5); White Blood Count 9.4 K/mm3 (4.5-10.0)
[2021-01-22 11:57] LABS: INR 2.9; Prothrombin Time 29.8 Seconds (11.1-14.7)
[2021-01-22 12:17] LABS: Alanine Aminotransferase 26 U/L (4-50); Alkaline Phosphatase 84 U/L (38-126); Anion Gap 11 mmol/L (8-16); Aspartate Amino Transferase 33 U/L (17-59); Bilirubin,Total 0.7 mg/dL (0.2-1.3); Blood Urea Nitrogen 17 mg/dL (9-20); Calcium 8.8 mg/dL (8.4-10.2); Carbon Dioxide 21 mmol/L (22-30); Chloride 104 mmol/L (98-107); Estimated Glomerular Filt Rate > 60; Glucose 224 mg/dL (65-110); Lactate Dehydrogenase 1099 U/L (313-618); Potassium 4.2 mmol/L (3.4-5.0); Sodium 136 mmol/L (137-145)
[2021-02-04 12:21] LABS: Basophils Absolute Auto 0.1 K/mm3 (0.0-0.1); Basophils Percent Auto 0.6 % (0.2-1.2); Eosinophils Absolute Auto 0.1 K/mm3 (0-0.3); Eosinophils Percent Auto 0.7 % (0-4.4); Hematocrit 49.2 % (42.0-52.0); Hemoglobin 15.9 g/dL (14.0-18.0); Immature Granulocyte Absolute 0.02 K/mm3 (0.00-0.031); Immature Granulocyte Percent A 0.2 % (0-0.5); Lymphocytes Absolute Auto 0.64 K/mm3 (0.9-3.2); Lymphocytes Percent Auto 7.6 % (18.3-44.2); Mean Corpuscular HGB Conc 32.3 g/dl (32-36); Mean Corpuscular Hemoglobin 29.3 pg (26-34); Mean Corpuscular Volume 90.6 fl (80-100); Monocytes Absolute Auto 0.5 K/mm3 (0.1-0.6); Monocytes Percent Auto 5.6 % (2.6-8.5); Neutrophils Absolute Auto 7.2 K/mm3 (1.3-6.7); Neutrophils Percent Auto 85.3 % (45.5-73.1); Platelet Count Result 161 k/mm3 (150-375); Red Blood Count 5.43 M/mm3 (4.6-6.20); Red Cell Distribution Width 15.6 % (11.5-14.5); White Blood Count 8.4 K/mm3 (4.5-10.0)
[2021-02-04 12:36] LABS: INR 3.1; Prothrombin Time 30.8 Seconds (11.1-14.7)
[2021-02-04 12:41] LABS: Alanine Aminotransferase 24 U/L (4-50); Albumin Level 3.9 g/dL (3.5-5.1); Alkaline Phosphatase 84 U/L (38-126); Anion Gap 11 mmol/L (8-16); Aspartate Amino Transferase 35 U/L (17-59); Bilirubin,Total 0.7 mg/dL (0.2-1.3); Blood Urea Nitrogen 18 mg/dL (9-20); Carbon Dioxide 23 mmol/L (22-30); Chloride 105 mmol/L (98-107); Estimated Glomerular Filt Rate > 60; Glucose 249 mg/dL (65-110); Lactate Dehydrogenase 1132 U/L (313-618); Potassium 4.2 mmol/L (3.4-5.0); Sodium 139 mmol/L (137-145)
[2021-02-19 12:27] LABS: Basophils Absolute Auto 0.1 K/mm3 (0.0-0.1); Basophils Percent Auto 0.8 % (0.2-1.2); Eosinophils Absolute Auto 0.1 K/mm3 (0-0.3); Eosinophils Percent Auto 0.6 % (0-4.4); Hematocrit 50.6 % (42.0-52.0); Hemoglobin 16.3 g/dL (14.0-18.0); Immature Granulocyte Absolute 0.02 K/mm3 (0.00-0.031); Immature Granulocyte Percent A 0.3 % (0-0.5); Lymphocytes Absolute Auto 0.56 K/mm3 (0.9-3.2); Lymphocytes Percent Auto 7.2 % (18.3-44.2); Mean Corpuscular HGB Conc 32.2 g/dl (32-36); Mean Corpuscular Hemoglobin 29.7 pg (26-34); Mean Corpuscular Volume 92.2 fl (80-100); Mean Platelet Volume 11.2 fl (7.4-10.4); Monocytes Absolute Auto 0.5 K/mm3 (0.1-0.6); Monocytes Percent Auto 5.9 % (2.6-8.5); Neutrophils Absolute Auto 6.7 K/mm3 (1.3-6.7); Neutrophils Percent Auto 85.2 % (45.5-73.1); Platelet Count Result 166 k/mm3 (150-375); Red Blood Count 5.49 M/mm3 (4.6-6.20); Red Cell Distribution Width 15.5 % (11.5-14.5); White Blood Count 7.8 K/mm3 (4.5-10.0)
[2021-02-19 12:37] LABS: INR 2.8; Prothrombin Time 28.4 Seconds (11.1-14.7)
[2021-02-19 14:42] LABS: Alanine Aminotransferase 24 U/L (4-50); Albumin Level 4.3 g/dL (3.5-5.1); Alkaline Phosphatase 90 U/L (38-126); Anion Gap 9 mmol/L (8-16); Aspartate Amino Transferase 40 U/L (17-59); Bilirubin,Total 0.6 mg/dL (0.2-1.3); Blood Urea Nitrogen 16 mg/dL (9-20); Calcium 9.2 mg/dL (8.4-10.2); Carbon Dioxide 26 mmol/L (22-30); Chloride 103 mmol/L (98-107); Estimated Glomerular Filt Rate > 60; Glucose 284 mg/dL (65-110); Potassium 4.3 mmol/L (3.4-5.0); Sodium 138 mmol/L (137-145)
[2021-02-19 19:16] LABS: Lactate Dehydrogenase 1216 U/L (313-618)
== END 2021-03-04 23:59 | disposition home or self-care (01) ==
LOC: ANHLAB 11:32
PROVIDERS: PCP Internal Medicine
DX: Z95.811 Presence of heart assist device (principal)
CPT/HCPCS: 36415; 80053; 83615; 85025; 85610

== ENCOUNTER 2021-05-21 11:22 | Outpatient (RCR) | payer MEDICARE, SELFPAY ==
[2021-03-05 12:05] LABS: Basophils Absolute Auto 0.1 K/mm3 (0.0-0.1); Basophils Percent Auto 0.9 % (0.2-1.2); Eosinophils Absolute Auto 0.1 K/mm3 (0-0.3); Eosinophils Percent Auto 0.9 % (0-4.4); Hematocrit 49.6 % (42.0-52.0); Hemoglobin 16.6 g/dL (14.0-18.0); Immature Granulocyte Absolute 0.02 K/mm3 (0.00-0.031); Immature Granulocyte Percent A 0.3 % (0-0.5); Lymphocytes Absolute Auto 0.69 K/mm3 (0.9-3.2); Lymphocytes Percent Auto 10.3 % (18.3-44.2); Mean Corpuscular HGB Conc 33.5 g/dl (32-36); Mean Corpuscular Hemoglobin 29.9 pg (26-34); Mean Corpuscular Volume 89.2 fl (80-100); Mean Platelet Volume 10.7 fl (7.4-10.4); Monocytes Absolute Auto 0.4 K/mm3 (0.1-0.6); Neutrophils Absolute Auto 5.5 K/mm3 (1.3-6.7); Neutrophils Percent Auto 81.6 % (45.5-73.1); Platelet Count Result 173 k/mm3 (150-375); Red Blood Count 5.56 M/mm3 (4.6-6.20); Red Cell Distribution Width 14.8 % (11.5-14.5); White Blood Count 6.7 K/mm3 (4.5-10.0)
[2021-03-05 12:16] LABS: Alanine Aminotransferase 28 U/L (4-50); Albumin Level 4.1 g/dL (3.5-5.1); Alkaline Phosphatase 81 U/L (38-126); Anion Gap 10 mmol/L (8-16); Aspartate Amino Transferase 41 U/L (17-59); Bilirubin,Total 0.7 mg/dL (0.2-1.3); Blood Urea Nitrogen 14 mg/dL (9-20); Calcium 9.4 mg/dL (8.4-10.2); Carbon Dioxide 27 mmol/L (22-30); Chloride 102 mmol/L (98-107); Estimated Glomerular Filt Rate > 60; Glucose 237 mg/dL (65-110); Lactate Dehydrogenase 1128 U/L (313-618); Potassium 4.3 mmol/L (3.4-5.0); Sodium 139 mmol/L (137-145)
[2021-03-05 12:17] LABS: INR 3.3; Prothrombin Time 32.7 Seconds (11.1-14.7)
[2021-03-19 12:07] LABS: Basophils Absolute Auto 0.1 K/mm3 (0.0-0.1); Basophils Percent Auto 0.7 % (0.2-1.2); Eosinophils Absolute Auto 0.1 K/mm3 (0-0.3); Eosinophils Percent Auto 0.9 % (0-4.4); Hematocrit 49.1 % (42.0-52.0); Hemoglobin 16.1 g/dL (14.0-18.0); Immature Granulocyte Absolute 0.02 K/mm3 (0.00-0.031); Immature Granulocyte Percent A 0.3 % (0-0.5); Lymphocytes Absolute Auto 0.58 K/mm3 (0.9-3.2); Lymphocytes Percent Auto 8.5 % (18.3-44.2); Mean Corpuscular HGB Conc 32.8 g/dl (32-36); Mean Corpuscular Hemoglobin 30.7 pg (26-34); Mean Corpuscular Volume 93.5 fl (80-100); Mean Platelet Volume 10.4 fl (7.4-10.4); Monocytes Absolute Auto 0.4 K/mm3 (0.1-0.6); Neutrophils Absolute Auto 5.7 K/mm3 (1.3-6.7); Neutrophils Percent Auto 83.6 % (45.5-73.1); Platelet Count Result 156 k/mm3 (150-375); Red Blood Count 5.25 M/mm3 (4.6-6.20); Red Cell Distribution Width 15.7 % (11.5-14.5); White Blood Count 6.8 K/mm3 (4.5-10.0)
[2021-03-19 12:20] LABS: INR 2.8; Prothrombin Time 28.5 Seconds (11.1-14.7)
[2021-03-19 13:06] LABS: Alanine Aminotransferase 23 U/L (4-50); Alkaline Phosphatase 76 U/L (38-126); Anion Gap 10 mmol/L (8-16); Aspartate Amino Transferase 35 U/L (17-59); Bilirubin,Total 0.8 mg/dL (0.2-1.3); Blood Urea Nitrogen 18 mg/dL (9-20); Calcium 9.3 mg/dL (8.4-10.2); Carbon Dioxide 24 mmol/L (22-30); Chloride 106 mmol/L (98-107); Estimated Glomerular Filt Rate > 60; Glucose 150 mg/dL (65-110); Lactate Dehydrogenase 1176 U/L (313-618); Potassium 4.3 mmol/L (3.4-5.0); Sodium 140 mmol/L (137-145)
[2021-04-02 11:55] LABS: Basophils Absolute Auto 0.1 K/mm3 (0.0-0.1); Eosinophils Absolute Auto 0.1 K/mm3 (0-0.3); Eosinophils Percent Auto 1.4 % (0-4.4); Hematocrit 46.8 % (42.0-52.0); Hemoglobin 15.5 g/dL (14.0-18.0); Immature Granulocyte Absolute 0.03 K/mm3 (0.00-0.031); Immature Granulocyte Percent A 0.5 % (0-0.5); Lymphocytes Absolute Auto 0.64 K/mm3 (0.9-3.2); Lymphocytes Percent Auto 10.2 % (18.3-44.2); Mean Corpuscular HGB Conc 33.1 g/dl (32-36); Mean Corpuscular Hemoglobin 29.8 pg (26-34); Mean Platelet Volume 10.2 fl (7.4-10.4); Monocytes Absolute Auto 0.4 K/mm3 (0.1-0.6); Neutrophils Percent Auto 79.9 % (45.5-73.1); Platelet Count Result 192 k/mm3 (150-375); Red Cell Distribution Width 15.6 % (11.5-14.5); White Blood Count 6.3 K/mm3 (4.5-10.0)
[2021-04-02 12:04] LABS: INR 2.6; Prothrombin Time 27.5 Seconds (11.1-14.7)
[2021-04-02 12:10] LABS: Alanine Aminotransferase 23 U/L (4-50); Albumin Level 4.3 g/dL (3.5-5.1); Alkaline Phosphatase 85 U/L (38-126); Anion Gap 8 mmol/L (8-16); Aspartate Amino Transferase 35 U/L (17-59); Bilirubin,Total 0.7 mg/dL (0.2-1.3); Blood Urea Nitrogen 14 mg/dL (9-20); Calcium 9.1 mg/dL (8.4-10.2); Carbon Dioxide 24 mmol/L (22-30); Chloride 103 mmol/L (98-107); Estimated Glomerular Filt Rate > 60; Glucose 147 mg/dL (65-110); Lactate Dehydrogenase 1158 U/L (313-618); Sodium 135 mmol/L (137-145)
[2021-04-16 11:30] LABS: Basophils Absolute Auto 0.1 K/mm3 (0.0-0.1); Basophils Percent Auto 0.8 % (0.2-1.2); Eosinophils Absolute Auto 0.1 K/mm3 (0-0.3); Eosinophils Percent Auto 1.2 % (0-4.4); Hematocrit 50.7 % (42.0-52.0); Hemoglobin 16.7 g/dL (14.0-18.0); Immature Granulocyte Absolute 0.01 K/mm3 (0.00-0.031); Immature Granulocyte Percent A 0.2 % (0-0.5); Lymphocytes Absolute Auto 0.66 K/mm3 (0.9-3.2); Lymphocytes Percent Auto 10.1 % (18.3-44.2); Mean Corpuscular HGB Conc 32.9 g/dl (32-36); Mean Corpuscular Hemoglobin 30.4 pg (26-34); Mean Corpuscular Volume 92.3 fl (80-100); Mean Platelet Volume 10.7 fl (7.4-10.4); Monocytes Absolute Auto 0.5 K/mm3 (0.1-0.6); Neutrophils Absolute Auto 5.3 K/mm3 (1.3-6.7); Neutrophils Percent Auto 80.7 % (45.5-73.1); Platelet Count Result 174 k/mm3 (150-375); Red Blood Count 5.49 M/mm3 (4.6-6.20); Red Cell Distribution Width 15.5 % (11.5-14.5); White Blood Count 6.6 K/mm3 (4.5-10.0)
[2021-04-16 11:41] LABS: INR 3.1
[2021-04-16 11:46] LABS: Alanine Aminotransferase 24 U/L (4-50); Albumin Level 4.6 g/dL (3.5-5.1); Alkaline Phosphatase 92 U/L (38-126); Anion Gap 8 mmol/L (8-16); Aspartate Amino Transferase 36 U/L (17-59); Bilirubin,Total 0.6 mg/dL (0.2-1.3); Blood Urea Nitrogen 14 mg/dL (9-20); Calcium 9.2 mg/dL (8.4-10.2); Carbon Dioxide 27 mmol/L (22-30); Chloride 101 mmol/L (98-107); Estimated Glomerular Filt Rate > 60; Glucose 158 mg/dL (65-110); Lactate Dehydrogenase 1241 U/L (313-618); Potassium 3.9 mmol/L (3.4-5.0); Sodium 136 mmol/L (137-145)
[2021-04-30 11:51] LABS: Basophils Absolute Auto 0.1 K/mm3 (0.0-0.1); Basophils Percent Auto 0.9 % (0.2-1.2); Eosinophils Absolute Auto 0.1 K/mm3 (0-0.3); Eosinophils Percent Auto 0.7 % (0-4.4); Hematocrit 49.7 % (42.0-52.0); Immature Granulocyte Absolute 0.03 K/mm3 (0.00-0.031); Immature Granulocyte Percent A 0.4 % (0-0.5); Lymphocytes Absolute Auto 0.55 K/mm3 (0.9-3.2); Lymphocytes Percent Auto 6.8 % (18.3-44.2); Mean Corpuscular HGB Conc 32.2 g/dl (32-36); Mean Corpuscular Volume 93.1 fl (80-100); Mean Platelet Volume 10.9 fl (7.4-10.4); Monocytes Absolute Auto 0.5 K/mm3 (0.1-0.6); Monocytes Percent Auto 6.3 % (2.6-8.5); Neutrophils Absolute Auto 6.9 K/mm3 (1.3-6.7); Neutrophils Percent Auto 84.9 % (45.5-73.1); Platelet Count Result 179 k/mm3 (150-375); Red Blood Count 5.34 M/mm3 (4.6-6.20); Red Cell Distribution Width 15.5 % (11.5-14.5); White Blood Count 8.1 K/mm3 (4.5-10.0)
[2021-04-30 11:54] LABS: INR 2.3; Prothrombin Time 24.4 Seconds (11.1-14.7)
[2021-04-30 11:59] LABS: Alanine Aminotransferase 21 U/L (4-50); Albumin Level 4.3 g/dL (3.5-5.1); Alkaline Phosphatase 88 U/L (38-126); Anion Gap 8 mmol/L (8-16); Aspartate Amino Transferase 34 U/L (17-59); Bilirubin,Total 0.8 mg/dL (0.2-1.3); Blood Urea Nitrogen 15 mg/dL (9-20); Carbon Dioxide 26 mmol/L (22-30); Chloride 101 mmol/L (98-107); Estimated Glomerular Filt Rate > 60; Glucose 182 mg/dL (65-110); Lactate Dehydrogenase 1241 U/L (313-618); Sodium 135 mmol/L (137-145)
[2021-05-21 11:55] LABS: Basophils Absolute Auto 0.1 K/mm3 (0.0-0.1); Basophils Percent Auto 0.9 % (0.2-1.2); Eosinophils Absolute Auto 0.1 K/mm3 (0-0.3); Eosinophils Percent Auto 1.5 % (0-4.4); Hematocrit 48.7 % (42.0-52.0); Hemoglobin 16.2 g/dL (14.0-18.0); Immature Granulocyte Absolute 0.02 K/mm3 (0.00-0.031); Immature Granulocyte Percent A 0.3 % (0-0.5); Lymphocytes Absolute Auto 0.64 K/mm3 (0.9-3.2); Lymphocytes Percent Auto 9.6 % (18.3-44.2); Mean Corpuscular HGB Conc 33.3 g/dl (32-36); Mean Corpuscular Hemoglobin 30.2 pg (26-34); Mean Corpuscular Volume 90.7 fl (80-100); Mean Platelet Volume 10.8 fl (7.4-10.4); Monocytes Absolute Auto 0.4 K/mm3 (0.1-0.6); Monocytes Percent Auto 5.7 % (2.6-8.5); Neutrophils Absolute Auto 5.5 K/mm3 (1.3-6.7); Platelet Count Result 210 k/mm3 (150-375); Red Blood Count 5.37 M/mm3 (4.6-6.20); Red Cell Distribution Width 15.4 % (11.5-14.5); White Blood Count 6.7 K/mm3 (4.5-10.0)
[2021-05-21 12:05] LABS: Prothrombin Time 22.3 Seconds (11.1-14.7)
[2021-05-21 12:15] LABS: Alanine Aminotransferase 27 U/L (4-50); Albumin Level 4.3 g/dL (3.5-5.1); Alkaline Phosphatase 99 U/L (38-126); Anion Gap 11 mmol/L (8-16); Aspartate Amino Transferase 34 U/L (17-59); Bilirubin,Total 0.5 mg/dL (0.2-1.3); Blood Urea Nitrogen 16 mg/dL (9-20); Calcium 9.2 mg/dL (8.4-10.2); Carbon Dioxide 28 mmol/L (22-30); Chloride 101 mmol/L (98-107); Estimated Glomerular Filt Rate > 60; Glucose 230 mg/dL (65-110); Lactate Dehydrogenase 1147 U/L (313-618); Potassium 4.1 mmol/L (3.4-5.0); Sodium 140 mmol/L (137-145)
== END 2021-06-03 23:59 | disposition home or self-care (01) ==
LOC: ANHLAB 11:22
PROVIDERS: PCP Internal Medicine
DX: Z51.81 Encounter for therapeutic drug level monitoring (principal); Z95.811 Presence of heart assist device; Z79.899 Other long term (current) drug therapy
CPT/HCPCS: 36415; 80053; 83615; 85025; 85610

== ENCOUNTER 2021-08-26 10:55 | Outpatient (RCR) | payer MEDICARE, SELFPAY ==
[2021-06-10 16:47] LABS: Basophils Percent Auto 0.6 % (0.2-1.2); Eosinophils Absolute Auto 0.1 K/mm3 (0-0.3); Eosinophils Percent Auto 0.8 % (0-4.4); Hematocrit 47.7 % (42.0-52.0); Immature Granulocyte Absolute 0.03 K/mm3 (0.00-0.031); Immature Granulocyte Percent A 0.4 % (0-0.5); Lymphocytes Absolute Auto 0.59 K/mm3 (0.9-3.2); Lymphocytes Percent Auto 8.1 % (18.3-44.2); Mean Corpuscular HGB Conc 33.5 g/dl (32-36); Mean Corpuscular Volume 89.5 fl (80-100); Mean Platelet Volume 10.4 fl (7.4-10.4); Monocytes Absolute Auto 0.4 K/mm3 (0.1-0.6); Monocytes Percent Auto 5.2 % (2.6-8.5); Neutrophils Absolute Auto 6.2 K/mm3 (1.3-6.7); Neutrophils Percent Auto 84.9 % (45.5-73.1); Platelet Count Result 198 k/mm3 (150-375); Red Blood Count 5.33 M/mm3 (4.6-6.20); Red Cell Distribution Width 15.3 % (11.5-14.5); White Blood Count 7.3 K/mm3 (4.5-10.0)
[2021-06-10 16:56] LABS: INR 2.1; Prothrombin Time 23.3 Seconds (11.1-14.7)
[2021-06-10 17:02] LABS: Alanine Aminotransferase 24 U/L (4-50); Albumin Level 4.4 g/dL (3.5-5.1); Alkaline Phosphatase 93 U/L (38-126); Anion Gap 11 mmol/L (8-16); Aspartate Amino Transferase 36 U/L (17-59); Bilirubin,Total 0.5 mg/dL (0.2-1.3); Blood Urea Nitrogen 19 mg/dL (9-20); Calcium 9.1 mg/dL (8.4-10.2); Carbon Dioxide 22 mmol/L (22-30); Chloride 103 mmol/L (98-107); Estimated Glomerular Filt Rate > 60; Glucose 247 mg/dL (65-110); Lactate Dehydrogenase 1122 U/L (313-618); Potassium 4.2 mmol/L (3.4-5.0); Sodium 136 mmol/L (137-145)
[2021-07-01 11:52] LABS: Basophils Absolute Auto 0.1 K/mm3 (0.0-0.1); Basophils Percent Auto 0.8 % (0.2-1.2); Eosinophils Absolute Auto 0.1 K/mm3 (0-0.3); Eosinophils Percent Auto 1.3 % (0-4.4); Hematocrit 48.5 % (42.0-52.0); Hemoglobin 15.8 g/dL (14.0-18.0); Immature Granulocyte Absolute 0.01 K/mm3 (0.00-0.031); Immature Granulocyte Percent A 0.2 % (0-0.5); Lymphocytes Absolute Auto 0.59 K/mm3 (0.9-3.2); Lymphocytes Percent Auto 9.4 % (18.3-44.2); Mean Corpuscular HGB Conc 32.6 g/dl (32-36); Mean Corpuscular Hemoglobin 29.6 pg (26-34); Mean Corpuscular Volume 90.8 fl (80-100); Mean Platelet Volume 10.4 fl (7.4-10.4); Monocytes Absolute Auto 0.4 K/mm3 (0.1-0.6); Monocytes Percent Auto 5.8 % (2.6-8.5); Neutrophils Absolute Auto 5.2 K/mm3 (1.3-6.7); Neutrophils Percent Auto 82.5 % (45.5-73.1); Platelet Count Result 161 k/mm3 (150-375); Red Blood Count 5.34 M/mm3 (4.6-6.20); Red Cell Distribution Width 15.6 % (11.5-14.5); White Blood Count 6.3 K/mm3 (4.5-10.0)
[2021-07-01 12:02] LABS: INR 3.1; Prothrombin Time 31.3 Seconds (11.1-14.7)
[2021-07-01 12:11] LABS: Alanine Aminotransferase 26 U/L (4-50); Albumin Level 4.1 g/dL (3.5-5.1); Alkaline Phosphatase 94 U/L (38-126); Anion Gap 8 mmol/L (8-16); Aspartate Amino Transferase 35 U/L (17-59); Bilirubin,Total 0.6 mg/dL (0.2-1.3); Blood Urea Nitrogen 17 mg/dL (9-20); Calcium 8.8 mg/dL (8.4-10.2); Carbon Dioxide 26 mmol/L (22-30); Chloride 104 mmol/L (98-107); Estimated Glomerular Filt Rate > 60; Glucose 232 mg/dL (65-110); Lactate Dehydrogenase 1070 U/L (313-618); Potassium 4.1 mmol/L (3.4-5.0); Sodium 138 mmol/L (137-145)
[2021-07-22 11:52] LABS: Basophils Absolute Auto 0.1 K/mm3 (0.0-0.1); Basophils Percent Auto 0.9 % (0.2-1.2); Eosinophils Absolute Auto 0.1 K/mm3 (0-0.3); Eosinophils Percent Auto 0.8 % (0-4.4); Hematocrit 50.8 % (42.0-52.0); Hemoglobin 16.1 g/dL (14.0-18.0); Immature Granulocyte Absolute 0.02 K/mm3 (0.00-0.031); Immature Granulocyte Percent A 0.3 % (0-0.5); Lymphocytes Absolute Auto 0.59 K/mm3 (0.9-3.2); Lymphocytes Percent Auto 8.9 % (18.3-44.2); Mean Corpuscular HGB Conc 31.7 g/dl (32-36); Mean Corpuscular Hemoglobin 29.8 pg (26-34); Mean Corpuscular Volume 93.9 fl (80-100); Mean Platelet Volume 10.3 fl (7.4-10.4); Monocytes Absolute Auto 0.4 K/mm3 (0.1-0.6); Monocytes Percent Auto 5.9 % (2.6-8.5); Neutrophils Absolute Auto 5.5 K/mm3 (1.3-6.7); Neutrophils Percent Auto 83.2 % (45.5-73.1); Platelet Count Result 166 k/mm3 (150-375); Red Blood Count 5.41 M/mm3 (4.6-6.20); Red Cell Distribution Width 16.5 % (11.5-14.5); White Blood Count 6.6 K/mm3 (4.5-10.0)
[2021-07-22 12:00] LABS: Alanine Aminotransferase 26 U/L (4-50); Albumin Level 4.2 g/dL (3.5-5.1); Alkaline Phosphatase 92 U/L (38-126); Anion Gap 6 mmol/L (8-16); Aspartate Amino Transferase 40 U/L (17-59); Bilirubin,Total 0.8 mg/dL (0.2-1.3); Blood Urea Nitrogen 13 mg/dL (9-20); Calcium 8.9 mg/dL (8.4-10.2); Carbon Dioxide 29 mmol/L (22-30); Chloride 102 mmol/L (98-107); Estimated Glomerular Filt Rate > 60; Glucose 220 mg/dL (65-110); Lactate Dehydrogenase 1100 U/L (313-618); Potassium 4.4 mmol/L (3.4-5.0); Sodium 137 mmol/L (137-145)
[2021-07-22 12:02] LABS: INR 1.6; Prothrombin Time 18.3 Seconds (11.1-14.7)
[2021-07-29 12:05] LABS: Basophils Absolute Auto 0.1 K/mm3 (0.0-0.1); Basophils Percent Auto 0.7 % (0.2-1.2); Eosinophils Absolute Auto 0.1 K/mm3 (0-0.3); Eosinophils Percent Auto 0.8 % (0-4.4); Hematocrit 49.2 % (42.0-52.0); Hemoglobin 16.2 g/dL (14.0-18.0); Immature Granulocyte Absolute 0.03 K/mm3 (0.00-0.031); Immature Granulocyte Percent A 0.4 % (0-0.5); Lymphocytes Absolute Auto 0.67 K/mm3 (0.9-3.2); Mean Corpuscular HGB Conc 32.9 g/dl (32-36); Mean Corpuscular Hemoglobin 29.9 pg (26-34); Mean Corpuscular Volume 90.8 fl (80-100); Mean Platelet Volume 10.9 fl (7.4-10.4); Monocytes Absolute Auto 0.5 K/mm3 (0.1-0.6); Neutrophils Absolute Auto 6.2 K/mm3 (1.3-6.7); Neutrophils Percent Auto 82.1 % (45.5-73.1); Platelet Count Result 158 k/mm3 (150-375); Red Blood Count 5.42 M/mm3 (4.6-6.20); White Blood Count 7.5 K/mm3 (4.5-10.0)
[2021-07-29 12:09] LABS: Alanine Aminotransferase 24 U/L (4-50); Albumin Level 4.2 g/dL (3.5-5.1); Alkaline Phosphatase 87 U/L (38-126); Anion Gap 6 mmol/L (8-16); Aspartate Amino Transferase 39 U/L (17-59); Bilirubin,Total 0.7 mg/dL (0.2-1.3); Blood Urea Nitrogen 18 mg/dL (9-20); Carbon Dioxide 29 mmol/L (22-30); Chloride 102 mmol/L (98-107); Estimated Glomerular Filt Rate > 60; Glucose 217 mg/dL (65-110); INR 1.7; Lactate Dehydrogenase 1148 U/L (313-618); Potassium 4.5 mmol/L (3.4-5.0); Prothrombin Time 19.6 Seconds (11.1-14.7); Sodium 137 mmol/L (137-145)
[2021-08-12 11:27] LABS: Basophils Absolute Auto 0.1 K/mm3 (0.0-0.1); Basophils Percent Auto 0.8 % (0.2-1.2); Eosinophils Absolute Auto 0.1 K/mm3 (0-0.3); Eosinophils Percent Auto 0.7 % (0-4.4); Hematocrit 50.3 % (42.0-52.0); Hemoglobin 16.3 g/dL (14.0-18.0); Immature Granulocyte Absolute 0.02 K/mm3 (0.00-0.031); Immature Granulocyte Percent A 0.3 % (0-0.5); Lymphocytes Absolute Auto 0.56 K/mm3 (0.9-3.2); Lymphocytes Percent Auto 7.6 % (18.3-44.2); Mean Corpuscular HGB Conc 32.4 g/dl (32-36); Mean Corpuscular Hemoglobin 29.9 pg (26-34); Mean Corpuscular Volume 92.3 fl (80-100); Mean Platelet Volume 10.6 fl (7.4-10.4); Monocytes Absolute Auto 0.5 K/mm3 (0.1-0.6); Monocytes Percent Auto 7.3 % (2.6-8.5); Neutrophils Absolute Auto 6.1 K/mm3 (1.3-6.7); Neutrophils Percent Auto 83.3 % (45.5-73.1); Platelet Count Result 162 k/mm3 (150-375); Red Blood Count 5.45 M/mm3 (4.6-6.20); Red Cell Distribution Width 16.3 % (11.5-14.5); White Blood Count 7.4 K/mm3 (4.5-10.0)
[2021-08-12 11:33] LABS: INR 2.1; Prothrombin Time 22.5 Seconds (11.1-14.7)
[2021-08-12 12:09] LABS: Alanine Aminotransferase 25 U/L (4-50); Albumin Level 4.2 g/dL (3.5-5.1); Alkaline Phosphatase 91 U/L (38-126); Anion Gap 7 mmol/L (8-16); Aspartate Amino Transferase 38 U/L (17-59); Bilirubin,Total 0.7 mg/dL (0.2-1.3); Blood Urea Nitrogen 19 mg/dL (9-20); Calcium 8.8 mg/dL (8.4-10.2); Carbon Dioxide 26 mmol/L (22-30); Chloride 104 mmol/L (98-107); Estimated Glomerular Filt Rate > 60; Glucose 209 mg/dL (65-110); Lactate Dehydrogenase 1064 U/L (313-618); Potassium 4.2 mmol/L (3.4-5.0); Sodium 137 mmol/L (137-145)
[2021-08-26 11:19] LABS: Basophils Absolute Auto 0.1 K/mm3 (0.0-0.1); Basophils Percent Auto 0.9 % (0.2-1.2); Eosinophils Absolute Auto 0.1 K/mm3 (0-0.3); Eosinophils Percent Auto 1.1 % (0-4.4); Hematocrit 51.7 % (42.0-52.0); Hemoglobin 16.7 g/dL (14.0-18.0); Immature Granulocyte Absolute 0.02 K/mm3 (0.00-0.031); Immature Granulocyte Percent A 0.3 % (0-0.5); Lymphocytes Absolute Auto 0.64 K/mm3 (0.9-3.2); Lymphocytes Percent Auto 9.6 % (18.3-44.2); Mean Corpuscular HGB Conc 32.3 g/dl (32-36); Mean Corpuscular Hemoglobin 30.1 pg (26-34); Mean Corpuscular Volume 93.2 fl (80-100); Mean Platelet Volume 10.2 fl (7.4-10.4); Monocytes Absolute Auto 0.5 K/mm3 (0.1-0.6); Monocytes Percent Auto 6.9 % (2.6-8.5); Neutrophils Absolute Auto 5.4 K/mm3 (1.3-6.7); Neutrophils Percent Auto 81.2 % (45.5-73.1); Platelet Count Result 166 k/mm3 (150-375); Red Blood Count 5.55 M/mm3 (4.6-6.20); Red Cell Distribution Width 16.3 % (11.5-14.5); White Blood Count 6.7 K/mm3 (4.5-10.0)
[2021-08-26 11:31] LABS: Alanine Aminotransferase 27 U/L (4-50); Albumin Level 4.6 g/dL (3.5-5.1); Alkaline Phosphatase 86 U/L (38-126); Anion Gap 10 mmol/L (8-16); Aspartate Amino Transferase 37 U/L (17-59); Bilirubin,Total 0.8 mg/dL (0.2-1.3); Blood Urea Nitrogen 20 mg/dL (9-20); Carbon Dioxide 27 mmol/L (22-30); Chloride 100 mmol/L (98-107); Estimated Glomerular Filt Rate > 60; Glucose 191 mg/dL (65-110); Lactate Dehydrogenase 1192 U/L (313-618); Potassium 4.5 mmol/L (3.4-5.0); Sodium 137 mmol/L (137-145)
[2021-08-26 11:34] LABS: INR 1.9; Prothrombin Time 21.5 Seconds (11.1-14.7)
== END 2021-09-08 23:59 | disposition home or self-care (01) ==
LOC: ANHLAB 10:55
PROVIDERS: PCP Internal Medicine; Visit Provider Internal Medicine
DX: I25.5 Ischemic cardiomyopathy (principal); I50.22 Chronic systolic (congestive) heart failure; Z95.811 Presence of heart assist device
CPT/HCPCS: 36415; 80053; 83615; 85025; 85610

== ENCOUNTER 2021-09-16 10:29 | Emergency (ER) | payer MEDICARE, SELFPAY ==
--- NOTE | ~2021-09-16 | XR_ITS ---
EXAMINATION: XR hip RT min 3V w AP pelvis DATE: 09/16/2021 12:59 INDICATION: Right hip pain. TECHNIQUE: An anteroposterior view of the pelvis and 3 views of right hip were obtained. COMPARISON: None. FINDINGS: There is 5 degrees levocurvature of lumbar spine. There is severe lumbar spondylosis. No fr acture. There is mild osteoarthritis of the hips. IMPRESSION: 1. Mild osteoarthritis of the hips. Reviewed, dictated and finalized at location B.
--- NOTE | ~2021-09-16 | CT_ITS ---
EXAMINATION: CT thoracic lumbar wo con DATE: 09/16/2021 12:42 INDICATION: Back pain. TECHNIQUE: Computed tomography (CT) of the thoracic and lumbar spine was performed without intravenou s contrast. Automated exposure control and iterative reconstruction technique were employed. The dose -length product was 2139.11 mGy-cm. COMPARISON: None FINDINGS: CT THORACIC SPINE: There are coronary artery calcifications. Calcified hilar and mediastinal lymph no stan are consistent with old granulomatous disease. There is 5 degrees levocurvature of thoracic spine . There is mild chronic anterior wedging of T6-T9 vertebral bodies and T11 and T12 vertebral bodies. There are bridging endplate osteophytes from T3 to T8 and from T9 to L1, consistent with diffuse idio pathic skeletal hyperostosis (DISH). There is mildly decreased disc height at T3-T4 and T4-T5, modera tely decreased disc height at T4-T5 and T5-T6, mildly decreased disc height at T6-T7, moderately decr eased disc height at T7-T8, and mildly decreased disc height from T8-T9 through T11-T12. There is mul tilevel mild facet joint osteoarthritis. No neural foraminal stenosis or central canal stenosis. CT LUMBAR SPINE: There is 9 degrees dextrocurvature of thoracolumbar spine. Vertebral body heights ar e normal. There is mildly decreased disc height at L1-L2 and severely decreased disc height from L3-L 4 through L5-S1 with endplate remodeling. The following disc levels are specifically discussed: L1-L2: The disc is bulging. There is mild bilateral facet joint osteoarthritis. There is mild bilater al neural foraminal stenosis. There is mild central canal stenosis. L2-L3: The disc is bulging. There is moderate bilateral facet joint osteoarthritis. There is mild kathy ateral neural foraminal stenosis. There is mild central canal stenosis. L3-L4: The disc is bulging. There is severe bilateral facet joint osteoarthritis. There is moderate r ight and mild left neural foraminal stenosis. There is mild central canal stenosis. L4-L5: The disc is bulging. There is severe right and moderate left facet joint osteoarthritis. There is moderate right and mild left neural foraminal stenosis. There is mild central canal stenosis. L5-S1: The disc is bulging. There is severe bilateral facet joint osteoarthritis. There is moderate b ilateral neural foraminal stenosis. There is mild central canal stenosis. IMPRESSION: 1. Moderate thoracic spondylosis and severe lumbar spondylosis. 2. DISH. Reviewed, dictated and finalized at location B.
[2021-09-16 10:35] VITALS: BP 91/78; PULSE 85; RESP 18; TEMP 36.6; O2SAT 100
--- NOTE | 2021-09-16 12:15 | PC.NURSE ---
EDP at bedside to assess pt.
--- NOTE | 2021-09-16 12:32 | PC.NURSE ---
Pt at radiology at this time
--- NOTE | 2021-09-16 12:39 | PC.NURSE ---
Patient off unit to CT.
--- NOTE | 2021-09-16 12:42 | ED.BACK ---
HPI - Back Pain/Injury General Chief Complaint: Back Pain/Injury <Francia Moffett PA-C - Last Filed: 09/16/21 14:25> Stated Complaint: Back pain x 2 weeks/LVAD patient <BRENDA Jacobs Last Filed: 09/16/21 14:25> Time Seen by Provider: 09/16/21 11:48 <BRENDA Jacobs Last Filed: 09/16/21 14:25> Source: patient <BRENDA Jacobs Last Filed: 09/16/21 14:25> Mode of arrival: ambulatory <BRENDA Jacobs Last Filed: 09/16/21 14:25> Limitations: no limitations <BRENDA Jacobs Last Filed: 09/16/21 14:25> History of Present Illness HPI Narrative: This is a 80-year-old male that presents to the emergency department for right-sided back pain present over the last couple of weeks. No recent injury or trauma. Reports the pain is in the right lower back and radiates up into the mid back. Worse with movement and relieved with rest. He has been taking Tylenol at home with little relief. Denies fever, abdominal pain, vomiting, dysuria, hematuria, or bowel/bladder incontinence. <Francia Moffett PA-C - Last Filed: 09/16/21 14:25> Related Data Home Medications: Home Medications Medication Instructions Recorded Confirmed acetaminophen 325 mg tablet 325 mg PO Q6H PRN 07/26/19 atorvastatin 80 mg tablet 80 mg PO DAILY 07/26/19 brimonidine 0.2 % eye drops 1 drop EACH EYE Q8H 07/26/19 docusate sodium 100 mg tablet 100 mg PO DAILY 07/26/19 furosemide 40 mg tablet 40 mg PO QAM 07/26/19 insulin glargine U-300 conc 300 80 unit SUB-Q DAILY 07/26/19 unit/mL (3 mL) subcutaneous pen insulin lispro 100 unit/mL 10 unit SUB-Q DAILY 07/26/19 subcutaneous pen levothyroxine 88 mcg tablet 88 mcg PO DAILY 07/26/19 lorazepam 0.5 mg tablet 0.5 mg PO DAILY PRN 07/26/19 lorazepam 1 mg tablet 1 mg PO DAILY PRN 07/26/19 losartan 100 mg tablet 100 mg PO DAILY 07/26/19 magnesium oxide 400 mg (241.3 mg 400 mg PO DAILY 07/26/19 magnesium) tablet metformin 1,000 mg tablet 1,000 mg PO BID 07/26/19 metoprolol succinate 100 mg 100 mg PO DAILY 07/26/19 tablet,extended release 24 hr mirtazapine 15 mg tablet 15 mg PO DAILY 07/26/19 omeprazole 40 mg capsule,delayed 40 mg PO BID 07/26/19 release pen needle, diabetic 31 gauge x #30 each 07/26/19 3/16 potassium chloride 20 mEq 20 meq PO BID 07/26/19 tablet,extended release(part/cryst) ropinirole 1 mg tablet 1 mg PO ONCE tablet 07/26/19 warfarin 2 mg tablet 2 mg PO DAILY 07/26/19 warfarin 3 mg tablet 3 mg PO DAILY 07/26/19 <Francia Moffett PA-C - Last Filed: 09/16/21 14:25> Allergies/Adverse Reactions: Allergies Allergy/AdvReac Type Severity Reaction Status Date / Time lisinopril Allergy Unknown Verified 09/16/16 11:47 No Known Allergies Allergy Unverified 01/26/14 13:31 <Francia Moffett PA-C - Last Filed: 09/16/21 14:25> Review of Systems Review of Systems: CONSTITUTIONAL: Denies fever GASTROINTESTINAL: Denies abdominal pain, nausea, vomiting GENITOURINARY: Denies dysuria or hematuria. SKIN: Denies rash MUSCULOSKELETAL: Reports back pain, joint pain, and myalgia. NEUROLOGIC: Denies numbness, or weakness. 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
[2021-09-16 14:40] VITALS: BP 106/90; PULSE 70; RESP 16; O2SAT 99
== END 2021-09-16 14:30 | disposition home or self-care (01) ==
PROVIDERS: Emergency Provider Emergency Medicine
DX: M54.50 Low back pain, unspecified (principal); I10 Essential (primary) hypertension; E03.9 Hypothyroidism, unspecified; E11.3593 Type 2 diabetes mellitus with proliferative diabetic retinopathy without macular edema, bilateral; Z79.01 Long term (current) use of anticoagulants; Z79.84 Long term (current) use of oral hypoglycemic drugs; Z79.4 Long term (current) use of insulin; M47.816 Spondylosis without myelopathy or radiculopathy, lumbar region; M47.814 Spondylosis without myelopathy or radiculopathy, thoracic region; M16.0 Bilateral primary osteoarthritis of hip
CPT/HCPCS: 72128; 72131; 73502; 99284

== ENCOUNTER 2021-11-26 11:09 | Outpatient (RCR) | payer MEDICARE, SELFPAY ==
[2021-09-10 12:14] LABS: Basophils Absolute Auto 0.1 K/mm3 (0.0-0.1); Basophils Percent Auto 0.8 % (0.2-1.2); Eosinophils Absolute Auto 0.1 K/mm3 (0-0.3); Eosinophils Percent Auto 0.7 % (0-4.4); Hematocrit 48.4 % (42.0-52.0); Hemoglobin 16.4 g/dL (14.0-18.0); Immature Granulocyte Absolute 0.03 K/mm3 (0.00-0.031); Immature Granulocyte Percent A 0.4 % (0-0.5); Lymphocytes Absolute Auto 0.71 K/mm3 (0.9-3.2); Lymphocytes Percent Auto 9.8 % (18.3-44.2); Mean Corpuscular HGB Conc 33.9 g/dl (32-36); Mean Corpuscular Hemoglobin 30.7 pg (26-34); Mean Corpuscular Volume 90.6 fl (80-100); Mean Platelet Volume 10.6 fl (7.4-10.4); Monocytes Absolute Auto 0.5 K/mm3 (0.1-0.6); Monocytes Percent Auto 6.9 % (2.6-8.5); Neutrophils Absolute Auto 5.9 K/mm3 (1.3-6.7); Neutrophils Percent Auto 81.4 % (45.5-73.1); Platelet Count Result 173 k/mm3 (150-375); Red Blood Count 5.34 M/mm3 (4.6-6.20); Red Cell Distribution Width 15.3 % (11.5-14.5); White Blood Count 7.3 K/mm3 (4.5-10.0)
[2021-09-10 12:16] LABS: INR 1.8; Prothrombin Time 20.1 Seconds (11.1-14.7)
[2021-09-10 12:17] LABS: Alanine Aminotransferase 24 U/L (4-50); Albumin Level 4.3 g/dL (3.5-5.1); Alkaline Phosphatase 83 U/L (38-126); Anion Gap 5 mmol/L (8-16); Aspartate Amino Transferase 41 U/L (17-59); Bilirubin,Total 0.6 mg/dL (0.2-1.3); Blood Urea Nitrogen 17 mg/dL (9-20); Carbon Dioxide 29 mmol/L (22-30); Chloride 101 mmol/L (98-107); Estimated Glomerular Filt Rate > 60; Glucose 149 mg/dL (65-110); Lactate Dehydrogenase 1207 U/L (313-618); Potassium 4.4 mmol/L (3.4-5.0); Sodium 135 mmol/L (137-145)
[2021-09-23 11:36] LABS: Basophils Absolute Auto 0.1 K/mm3 (0.0-0.1); Basophils Percent Auto 0.8 % (0.2-1.2); Eosinophils Percent Auto 0.4 % (0-4.4); Hematocrit 51.4 % (42.0-52.0); Hemoglobin 16.6 g/dL (14.0-18.0); Immature Granulocyte Absolute 0.03 K/mm3 (0.00-0.031); Immature Granulocyte Percent A 0.4 % (0-0.5); Lymphocytes Absolute Auto 0.57 K/mm3 (0.9-3.2); Lymphocytes Percent Auto 7.9 % (18.3-44.2); Mean Corpuscular HGB Conc 32.3 g/dl (32-36); Mean Corpuscular Hemoglobin 30.1 pg (26-34); Mean Corpuscular Volume 93.3 fl (80-100); Mean Platelet Volume 10.5 fl (7.4-10.4); Monocytes Absolute Auto 0.4 K/mm3 (0.1-0.6); Monocytes Percent Auto 5.6 % (2.6-8.5); Neutrophils Absolute Auto 6.2 K/mm3 (1.3-6.7); Neutrophils Percent Auto 84.9 % (45.5-73.1); Platelet Count Result 167 k/mm3 (150-375); Red Blood Count 5.51 M/mm3 (4.6-6.20); Red Cell Distribution Width 15.8 % (11.5-14.5); White Blood Count 7.3 K/mm3 (4.5-10.0)
[2021-09-23 11:48] LABS: Alanine Aminotransferase 26 U/L (6-50); Albumin Level 4.5 g/dL (3.5-5.1); Alkaline Phosphatase 85 U/L (38-126); Anion Gap 6 mmol/L (8-16); Aspartate Amino Transferase 41 U/L (17-59); Bilirubin,Total 0.7 mg/dL (0.2-1.3); Blood Urea Nitrogen 15 mg/dL (9-20); Calcium 9.1 mg/dL (8.4-10.2); Carbon Dioxide 29 mmol/L (22-30); Chloride 101 mmol/L (98-107); Estimated Glomerular Filt Rate > 60; Glucose 195 mg/dL (65-110); INR 2.1; Lactate Dehydrogenase 1278 U/L (313-618); Potassium 4.2 mmol/L (3.4-5.0); Prothrombin Time 22.8 Seconds (11.1-14.7); Sodium 136 mmol/L (137-145)
[2021-10-07 11:29] LABS: Basophils Absolute Auto 0.1 K/mm3 (0.0-0.1); Eosinophils Absolute Auto 0.1 K/mm3 (0-0.3); Eosinophils Percent Auto 0.7 % (0-4.4); Hematocrit 48.3 % (42.0-52.0); Hemoglobin 16.3 g/dL (14.0-18.0); Immature Granulocyte Absolute 0.03 K/mm3 (0.00-0.031); Immature Granulocyte Percent A 0.4 % (0-0.5); Lymphocytes Absolute Auto 0.64 K/mm3 (0.9-3.2); Lymphocytes Percent Auto 9.3 % (18.3-44.2); Mean Corpuscular HGB Conc 33.7 g/dl (32-36); Mean Corpuscular Hemoglobin 30.9 pg (26-34); Mean Corpuscular Volume 91.7 fl (80-100); Mean Platelet Volume 10.4 fl (7.4-10.4); Monocytes Absolute Auto 0.4 K/mm3 (0.1-0.6); Monocytes Percent Auto 6.3 % (2.6-8.5); Neutrophils Absolute Auto 5.7 K/mm3 (1.3-6.7); Neutrophils Percent Auto 82.3 % (45.5-73.1); Platelet Count Result 169 k/mm3 (150-375); Red Blood Count 5.27 M/mm3 (4.6-6.20); White Blood Count 6.9 K/mm3 (4.5-10.0)
[2021-10-07 11:38] LABS: Alanine Aminotransferase 24 U/L (6-50); Albumin Level 4.4 g/dL (3.5-5.1); Alkaline Phosphatase 84 U/L (38-126); Anion Gap 8 mmol/L (8-16); Aspartate Amino Transferase 35 U/L (17-59); Bilirubin,Total 0.7 mg/dL (0.2-1.3); Blood Urea Nitrogen 17 mg/dL (9-20); Calcium 8.9 mg/dL (8.4-10.2); Carbon Dioxide 27 mmol/L (22-30); Chloride 98 mmol/L (98-107); Estimated Glomerular Filt Rate > 60; Glucose 206 mg/dL (65-110); Lactate Dehydrogenase 1220 U/L (313-618); Potassium 4.3 mmol/L (3.4-5.0); Sodium 133 mmol/L (137-145)
[2021-10-07 11:40] LABS: INR 1.7; Prothrombin Time 19.3 Seconds (11.1-14.7)
[2021-10-21 12:05] LABS: Basophils Percent Auto 0.6 % (0.2-1.2); Eosinophils Percent Auto 0.6 % (0-4.4); Hematocrit 45.1 % (42.0-52.0); Hemoglobin 15.5 g/dL (14.0-18.0); Immature Granulocyte Absolute 0.02 K/mm3 (0.00-0.031); Immature Granulocyte Percent A 0.3 % (0-0.5); Lymphocytes Absolute Auto 0.56 K/mm3 (0.9-3.2); Lymphocytes Percent Auto 8.8 % (18.3-44.2); Mean Corpuscular HGB Conc 34.4 g/dl (32-36); Mean Corpuscular Hemoglobin 31.1 pg (26-34); Mean Corpuscular Volume 90.6 fl (80-100); Mean Platelet Volume 10.7 fl (7.4-10.4); Monocytes Absolute Auto 0.4 K/mm3 (0.1-0.6); Monocytes Percent Auto 6.6 % (2.6-8.5); Neutrophils Absolute Auto 5.3 K/mm3 (1.3-6.7); Neutrophils Percent Auto 83.1 % (45.5-73.1); Platelet Count Result 162 k/mm3 (150-375); Red Blood Count 4.98 M/mm3 (4.6-6.20); Red Cell Distribution Width 15.2 % (11.5-14.5); White Blood Count 6.4 K/mm3 (4.5-10.0)
[2021-10-21 12:13] LABS: Alanine Aminotransferase 26 U/L (6-50); Albumin Level 3.9 g/dL (3.5-5.1); Alkaline Phosphatase 90 U/L (38-126); Anion Gap 7 mmol/L (8-16); Aspartate Amino Transferase 36 U/L (17-59); Bilirubin,Total 0.8 mg/dL (0.2-1.3); Blood Urea Nitrogen 14 mg/dL (9-20); Calcium 8.7 mg/dL (8.4-10.2); Carbon Dioxide 26 mmol/L (22-30); Chloride 105 mmol/L (98-107); Estimated Glomerular Filt Rate > 60; Glucose 225 mg/dL (65-110); INR 3.8; Potassium 4.2 mmol/L (3.4-5.0); Sodium 138 mmol/L (137-145)
[2021-10-21 12:39] LABS: Lactate Dehydrogenase 1191 U/L (313-618)
[2021-10-29 12:55] LABS: Basophils Percent Auto 0.6 % (0.2-1.2); Eosinophils Percent Auto 0.4 % (0-4.4); Hematocrit 45.8 % (42.0-52.0); Hemoglobin 15.6 g/dL (14.0-18.0); Immature Granulocyte Absolute 0.03 K/mm3 (0.00-0.031); Immature Granulocyte Percent A 0.4 % (0-0.5); Lymphocytes Absolute Auto 0.55 K/mm3 (0.9-3.2); Lymphocytes Percent Auto 7.6 % (18.3-44.2); Mean Corpuscular HGB Conc 34.1 g/dl (32-36); Mean Corpuscular Hemoglobin 31.1 pg (26-34); Mean Corpuscular Volume 91.2 fl (80-100); Mean Platelet Volume 10.5 fl (7.4-10.4); Monocytes Absolute Auto 0.5 K/mm3 (0.1-0.6); Monocytes Percent Auto 6.4 % (2.6-8.5); Neutrophils Absolute Auto 6.1 K/mm3 (1.3-6.7); Neutrophils Percent Auto 84.6 % (45.5-73.1); Platelet Count Result 184 k/mm3 (150-375); Red Blood Count 5.02 M/mm3 (4.6-6.20); Red Cell Distribution Width 15.4 % (11.5-14.5); White Blood Count 7.2 K/mm3 (4.5-10.0)
[2021-10-29 12:59] LABS: INR 1.9; Prothrombin Time 21.2 Seconds (11.1-14.7)
[2021-10-29 13:01] LABS: Potassium 4.3 mmol/L (3.4-5.0)
[2021-10-29 13:05] LABS: Alanine Aminotransferase 24 U/L (6-50); Albumin Level 4.3 g/dL (3.5-5.1); Alkaline Phosphatase 78 U/L (38-126); Anion Gap 7 mmol/L (8-16); Aspartate Amino Transferase 33 U/L (17-59); Bilirubin,Total 0.8 mg/dL (0.2-1.3); Blood Urea Nitrogen 16 mg/dL (9-20); Carbon Dioxide 27 mmol/L (22-30); Chloride 103 mmol/L (98-107); Estimated Glomerular Filt Rate > 60; Glucose 173 mg/dL (65-110); Lactate Dehydrogenase 1172 U/L (313-618); Sodium 137 mmol/L (137-145)
[2021-11-11 12:29] LABS: Basophils Absolute Auto 0.1 K/mm3 (0.0-0.1); Basophils Percent Auto 0.8 % (0.2-1.2); Eosinophils Percent Auto 0.6 % (0-4.4); Hematocrit 48.6 % (42.0-52.0); Hemoglobin 15.8 g/dL (14.0-18.0); Immature Granulocyte Absolute 0.03 K/mm3 (0.00-0.031); Immature Granulocyte Percent A 0.5 % (0-0.5); Lymphocytes Absolute Auto 0.54 K/mm3 (0.9-3.2); Lymphocytes Percent Auto 8.4 % (18.3-44.2); Mean Corpuscular HGB Conc 32.5 g/dl (32-36); Mean Corpuscular Hemoglobin 30.7 pg (26-34); Mean Corpuscular Volume 94.4 fl (80-100); Mean Platelet Volume 10.8 fl (7.4-10.4); Monocytes Absolute Auto 0.4 K/mm3 (0.1-0.6); Monocytes Percent Auto 6.7 % (2.6-8.5); Neutrophils Absolute Auto 5.3 K/mm3 (1.3-6.7); Platelet Count Result 161 k/mm3 (150-375); Red Blood Count 5.15 M/mm3 (4.6-6.20); Red Cell Distribution Width 15.2 % (11.5-14.5); White Blood Count 6.4 K/mm3 (4.5-10.0)
[2021-11-11 12:40] LABS: Alanine Aminotransferase 22 U/L (6-50); Albumin Level 4.1 g/dL (3.5-5.1); Alkaline Phosphatase 85 U/L (38-126); Anion Gap 11 mmol/L (8-16); Aspartate Amino Transferase 31 U/L (17-59); Bilirubin,Total 0.6 mg/dL (0.2-1.3); Blood Urea Nitrogen 16 mg/dL (9-20); Calcium 8.7 mg/dL (8.4-10.2); Carbon Dioxide 23 mmol/L (22-30); Chloride 103 mmol/L (98-107); Estimated Glomerular Filt Rate > 60; Glucose 236 mg/dL (65-110); Lactate Dehydrogenase 1150 U/L (313-618); Potassium 4.3 mmol/L (3.4-5.0); Sodium 137 mmol/L (137-145)
[2021-11-11 12:46] LABS: INR 2.1; Prothrombin Time 22.8 Seconds (11.1-14.7)
[2021-11-26 12:07] LABS: Alanine Aminotransferase 26 U/L (6-50); Albumin Level 4.4 g/dL (3.5-5.1); Alkaline Phosphatase 85 U/L (38-126); Anion Gap 10 mmol/L (8-16); Aspartate Amino Transferase 35 U/L (17-59); Bilirubin,Total 0.8 mg/dL (0.2-1.3); Blood Urea Nitrogen 19 mg/dL (9-20); Calcium 9.2 mg/dL (8.4-10.2); Carbon Dioxide 24 mmol/L (22-30); Chloride 103 mmol/L (98-107); Estimated Glomerular Filt Rate > 60; Glucose 200 mg/dL (65-110); INR 1.7; Lactate Dehydrogenase 1237 U/L (313-618); Potassium 4.3 mmol/L (3.4-5.0); Prothrombin Time 19.4 Seconds (11.1-14.7); Sodium 137 mmol/L (137-145)
[2021-11-26 12:13] LABS: Basophils Absolute Auto 0.1 K/mm3 (0.0-0.1); Basophils Percent Auto 1.1 % (0.2-1.2); Eosinophils Absolute Auto 0.1 K/mm3 (0-0.3); Eosinophils Percent Auto 0.9 % (0-4.4); Hemoglobin 16.2 g/dL (14.0-18.0); Immature Granulocyte Absolute 0.03 K/mm3 (0.00-0.031); Immature Granulocyte Percent A 0.5 % (0-0.5); Lymphocytes Absolute Auto 0.65 K/mm3 (0.9-3.2); Lymphocytes Percent Auto 9.9 % (18.3-44.2); Mean Corpuscular HGB Conc 32.4 g/dl (32-36); Mean Corpuscular Hemoglobin 30.9 pg (26-34); Mean Corpuscular Volume 95.2 fl (80-100); Mean Platelet Volume 10.5 fl (7.4-10.4); Monocytes Absolute Auto 0.5 K/mm3 (0.1-0.6); Monocytes Percent Auto 7.2 % (2.6-8.5); Neutrophils Absolute Auto 5.3 K/mm3 (1.3-6.7); Neutrophils Percent Auto 80.4 % (45.5-73.1); Platelet Count Result 176 k/mm3 (150-375); Red Blood Count 5.25 M/mm3 (4.6-6.20); Red Cell Distribution Width 15.2 % (11.5-14.5); White Blood Count 6.5 K/mm3 (4.5-10.0)
== END 2021-12-09 23:59 | disposition home or self-care (01) ==
LOC: ANHLAB 11:09
PROVIDERS: PCP Internal Medicine; Visit Provider Internal Medicine
DX: I25.5 Ischemic cardiomyopathy (principal); I50.22 Chronic systolic (congestive) heart failure; Z95.811 Presence of heart assist device
CPT/HCPCS: 36415; 80053; 83615; 85025; 85610

== ENCOUNTER 2022-03-03 11:12 | Outpatient (RCR) | payer MEDICARE, SELFPAY ==
[2021-12-10 13:27] LABS: Basophils Absolute Auto 0.1 K/mm3 (0.0-0.1); Eosinophils Absolute Auto 0.1 K/mm3 (0-0.3); Eosinophils Percent Auto 1.5 % (0-4.4); Hematocrit 49.7 % (42.0-52.0); Hemoglobin 16.1 g/dL (14.0-18.0); Immature Granulocyte Absolute 0.02 K/mm3 (0.00-0.031); Immature Granulocyte Percent A 0.3 % (0-0.5); Lymphocytes Absolute Auto 0.63 K/mm3 (0.9-3.2); Lymphocytes Percent Auto 8.8 % (18.3-44.2); Mean Corpuscular HGB Conc 32.4 g/dl (32-36); Mean Corpuscular Hemoglobin 30.9 pg (26-34); Mean Corpuscular Volume 95.4 fl (80-100); Mean Platelet Volume 10.1 fl (7.4-10.4); Monocytes Absolute Auto 0.5 K/mm3 (0.1-0.6); Monocytes Percent Auto 6.8 % (2.6-8.5); Neutrophils Absolute Auto 5.9 K/mm3 (1.3-6.7); Neutrophils Percent Auto 81.6 % (45.5-73.1); Platelet Count Result 161 k/mm3 (150-375); Red Blood Count 5.21 M/mm3 (4.6-6.20); Red Cell Distribution Width 14.7 % (11.5-14.5); White Blood Count 7.2 K/mm3 (4.5-10.0)
[2021-12-10 13:42] LABS: INR 1.9; Prothrombin Time 21.3 Seconds (11.1-14.7)
[2021-12-10 13:44] LABS: Alanine Aminotransferase 27 U/L (6-50); Albumin Level 4.3 g/dL (3.5-5.1); Alkaline Phosphatase 84 U/L (38-126); Anion Gap 11 mmol/L (8-16); Aspartate Amino Transferase 37 U/L (17-59); Bilirubin,Total 0.7 mg/dL (0.2-1.3); Blood Urea Nitrogen 17 mg/dL (9-20); Calcium 9.4 mg/dL (8.4-10.2); Carbon Dioxide 25 mmol/L (22-30); Chloride 102 mmol/L (98-107); Estimated Glomerular Filt Rate > 60; Glucose 178 mg/dL (65-110); Lactate Dehydrogenase 1240 U/L (313-618); Potassium 4.4 mmol/L (3.4-5.0); Sodium 138 mmol/L (137-145)
[2021-12-23 12:09] LABS: Basophils Absolute Auto 0.1 K/mm3 (0.0-0.1); Basophils Percent Auto 0.7 % (0.2-1.2); Eosinophils Absolute Auto 0.1 K/mm3 (0-0.3); Eosinophils Percent Auto 0.9 % (0-4.4); Hematocrit 47.9 % (42.0-52.0); Hemoglobin 15.8 g/dL (14.0-18.0); Immature Granulocyte Absolute 0.02 K/mm3 (0.00-0.031); Immature Granulocyte Percent A 0.3 % (0-0.5); Lymphocytes Absolute Auto 0.55 K/mm3 (0.9-3.2); Mean Corpuscular Hemoglobin 31.2 pg (26-34); Mean Corpuscular Volume 94.5 fl (80-100); Mean Platelet Volume 10.1 fl (7.4-10.4); Monocytes Absolute Auto 0.4 K/mm3 (0.1-0.6); Monocytes Percent Auto 6.4 % (2.6-8.5); Neutrophils Absolute Auto 5.8 K/mm3 (1.3-6.7); Neutrophils Percent Auto 83.7 % (45.5-73.1); Platelet Count Result 160 k/mm3 (150-375); Red Blood Count 5.07 M/mm3 (4.6-6.20); Red Cell Distribution Width 14.7 % (11.5-14.5); White Blood Count 6.9 K/mm3 (4.5-10.0)
[2021-12-23 12:20] LABS: Alanine Aminotransferase 29 U/L (6-50); Albumin Level 4.2 g/dL (3.5-5.1); Alkaline Phosphatase 84 U/L (38-126); Anion Gap 10 mmol/L (8-16); Aspartate Amino Transferase 37 U/L (17-59); Bilirubin,Total 0.6 mg/dL (0.2-1.3); Blood Urea Nitrogen 16 mg/dL (9-20); Calcium 9.3 mg/dL (8.4-10.2); Carbon Dioxide 27 mmol/L (22-30); Chloride 98 mmol/L (98-107); Estimated Glomerular Filt Rate > 60; Glucose 200 mg/dL (65-110); Lactate Dehydrogenase 492 U/L (120-246); Potassium 4.5 mmol/L (3.4-5.0); Sodium 135 mmol/L (137-145)
[2021-12-23 12:26] LABS: INR 2.7; Prothrombin Time 27.6 Seconds (11.1-14.7)
[2022-01-06 11:21] LABS: Basophils Absolute Auto 0.1 K/mm3 (0.0-0.1); Basophils Percent Auto 0.9 % (0.2-1.2); Eosinophils Absolute Auto 0.1 K/mm3 (0-0.3); Hematocrit 48.4 % (42.0-52.0); Hemoglobin 15.7 g/dL (14.0-18.0); Immature Granulocyte Absolute 0.03 K/mm3 (0.00-0.031); Immature Granulocyte Percent A 0.4 % (0-0.5); Lymphocytes Absolute Auto 0.56 K/mm3 (0.9-3.2); Lymphocytes Percent Auto 8.4 % (18.3-44.2); Mean Corpuscular HGB Conc 32.4 g/dl (32-36); Mean Corpuscular Hemoglobin 30.9 pg (26-34); Mean Corpuscular Volume 95.3 fl (80-100); Mean Platelet Volume 10.2 fl (7.4-10.4); Monocytes Absolute Auto 0.5 K/mm3 (0.1-0.6); Monocytes Percent Auto 6.9 % (2.6-8.5); Neutrophils Absolute Auto 5.5 K/mm3 (1.3-6.7); Neutrophils Percent Auto 82.4 % (45.5-73.1); Platelet Count Result 157 k/mm3 (150-375); Red Blood Count 5.08 M/mm3 (4.6-6.20); Red Cell Distribution Width 14.2 % (11.5-14.5); White Blood Count 6.7 K/mm3 (4.5-10.0)
[2022-01-06 11:33] LABS: INR 2.1; Prothrombin Time 22.9 Seconds (11.1-14.7)
[2022-01-06 11:40] LABS: Alanine Aminotransferase 27 U/L (6-50); Albumin Level 4.2 g/dL (3.5-5.1); Alkaline Phosphatase 84 U/L (38-126); Anion Gap 9 mmol/L (8-16); Aspartate Amino Transferase 36 U/L (17-59); Bilirubin,Total 0.6 mg/dL (0.2-1.3); Blood Urea Nitrogen 19 mg/dL (9-20); Calcium 9.2 mg/dL (8.4-10.2); Carbon Dioxide 27 mmol/L (22-30); Chloride 98 mmol/L (98-107); Estimated Glomerular Filt Rate > 60; Glucose 199 mg/dL (65-110); Lactate Dehydrogenase 476 U/L (120-246); Potassium 4.3 mmol/L (3.4-5.0); Sodium 134 mmol/L (137-145)
[2022-01-21 12:02] LABS: Basophils Percent Auto 0.6 % (0.2-1.2); Eosinophils Absolute Auto 0.1 K/mm3 (0-0.3); Eosinophils Percent Auto 0.9 % (0-4.4); Hematocrit 47.7 % (42.0-52.0); Hemoglobin 15.8 g/dL (14.0-18.0); Immature Granulocyte Absolute 0.03 K/mm3 (0.00-0.031); Immature Granulocyte Percent A 0.5 % (0-0.5); Lymphocytes Absolute Auto 0.51 K/mm3 (0.9-3.2); Lymphocytes Percent Auto 7.9 % (18.3-44.2); Mean Corpuscular HGB Conc 33.1 g/dl (32-36); Mean Corpuscular Hemoglobin 31.3 pg (26-34); Mean Corpuscular Volume 94.6 fl (80-100); Mean Platelet Volume 10.2 fl (7.4-10.4); Monocytes Absolute Auto 0.4 K/mm3 (0.1-0.6); Monocytes Percent Auto 6.3 % (2.6-8.5); Neutrophils Absolute Auto 5.4 K/mm3 (1.3-6.7); Neutrophils Percent Auto 83.8 % (45.5-73.1); Platelet Count Result 168 k/mm3 (150-375); Red Blood Count 5.04 M/mm3 (4.6-6.20); Red Cell Distribution Width 14.7 % (11.5-14.5); White Blood Count 6.5 K/mm3 (4.5-10.0)
[2022-01-21 12:13] LABS: INR 1.6; Prothrombin Time 18.7 Seconds (11.1-14.7)
[2022-01-21 12:20] LABS: Alanine Aminotransferase 29 U/L (6-50); Albumin Level 4.3 g/dL (3.5-5.1); Alkaline Phosphatase 86 U/L (38-126); Anion Gap 12 mmol/L (8-16); Aspartate Amino Transferase 36 U/L (17-59); Bilirubin,Total 0.7 mg/dL (0.2-1.3); Blood Urea Nitrogen 20 mg/dL (9-20); Calcium 9.2 mg/dL (8.4-10.2); Carbon Dioxide 24 mmol/L (22-30); Chloride 100 mmol/L (98-107); Estimated Glomerular Filt Rate > 60; Glucose 215 mg/dL (65-110); Lactate Dehydrogenase 495 U/L (120-246); Potassium 4.3 mmol/L (3.4-5.0); Sodium 136 mmol/L (137-145)
[2022-02-03 12:12] LABS: Basophils Absolute Auto 0.1 K/mm3 (0.0-0.1); Basophils Percent Auto 0.8 % (0.2-1.2); Eosinophils Absolute Auto 0.1 K/mm3 (0-0.3); Eosinophils Percent Auto 1.3 % (0-4.4); Hematocrit 47.4 % (42.0-52.0); Hemoglobin 15.6 g/dL (14.0-18.0); Immature Granulocyte Absolute 0.02 K/mm3 (0.00-0.031); Immature Granulocyte Percent A 0.3 % (0-0.5); Lymphocytes Absolute Auto 0.54 K/mm3 (0.9-3.2); Lymphocytes Percent Auto 8.9 % (18.3-44.2); Mean Corpuscular HGB Conc 32.9 g/dl (32-36); Mean Corpuscular Hemoglobin 31.4 pg (26-34); Mean Corpuscular Volume 95.4 fl (80-100); Mean Platelet Volume 10.3 fl (7.4-10.4); Monocytes Absolute Auto 0.4 K/mm3 (0.1-0.6); Monocytes Percent Auto 6.1 % (2.6-8.5); Neutrophils Percent Auto 82.6 % (45.5-73.1); Platelet Count Result 165 k/mm3 (150-375); Red Blood Count 4.97 M/mm3 (4.6-6.20); Red Cell Distribution Width 14.5 % (11.5-14.5); White Blood Count 6.1 K/mm3 (4.5-10.0)
[2022-02-03 12:25] LABS: INR 2.2; Prothrombin Time 24.1 Seconds (11.1-14.7)
[2022-02-03 12:27] LABS: Alanine Aminotransferase 32 U/L (6-50); Albumin Level 4.2 g/dL (3.5-5.1); Alkaline Phosphatase 94 U/L (38-126); Anion Gap 12 mmol/L (8-16); Aspartate Amino Transferase 40 U/L (17-59); Bilirubin,Total 0.6 mg/dL (0.2-1.3); Blood Urea Nitrogen 22 mg/dL (9-20); Calcium 8.9 mg/dL (8.4-10.2); Carbon Dioxide 22 mmol/L (22-30); Chloride 102 mmol/L (98-107); Estimated Glomerular Filt Rate > 60; Glucose 257 mg/dL (65-110); Lactate Dehydrogenase 483 U/L (120-246); Potassium 4.4 mmol/L (3.4-5.0); Sodium 136 mmol/L (137-145)
[2022-02-17 12:42] LABS: Basophils Absolute Auto 0.1 K/mm3 (0.0-0.1); Basophils Percent Auto 0.7 % (0.2-1.2); Eosinophils Absolute Auto 0.1 K/mm3 (0-0.3); Eosinophils Percent Auto 0.9 % (0-4.4); Hematocrit 47.3 % (42.0-52.0); Hemoglobin 15.6 g/dL (14.0-18.0); Immature Granulocyte Absolute 0.03 K/mm3 (0.00-0.031); Immature Granulocyte Percent A 0.4 % (0-0.5); Lymphocytes Absolute Auto 0.64 K/mm3 (0.9-3.2); Lymphocytes Percent Auto 9.6 % (18.3-44.2); Mean Corpuscular Hemoglobin 30.6 pg (26-34); Mean Corpuscular Volume 92.9 fl (80-100); Mean Platelet Volume 10.3 fl (7.4-10.4); Monocytes Absolute Auto 0.5 K/mm3 (0.1-0.6); Monocytes Percent Auto 7.5 % (2.6-8.5); Neutrophils Absolute Auto 5.4 K/mm3 (1.3-6.7); Neutrophils Percent Auto 80.9 % (45.5-73.1); Platelet Count Result 174 k/mm3 (150-375); Red Blood Count 5.09 M/mm3 (4.6-6.20); Red Cell Distribution Width 14.3 % (11.5-14.5); White Blood Count 6.7 K/mm3 (4.5-10.0)
[2022-02-17 12:55] LABS: INR 2.6; Prothrombin Time 27.3 Seconds (11.1-14.7)
[2022-02-17 12:56] LABS: Alanine Aminotransferase 31 U/L (6-50); Albumin Level 4.4 g/dL (3.5-5.1); Alkaline Phosphatase 86 U/L (38-126); Anion Gap 11 mmol/L (8-16); Aspartate Amino Transferase 40 U/L (17-59); Bilirubin,Total 0.6 mg/dL (0.2-1.3); Blood Urea Nitrogen 16 mg/dL (9-20); Calcium 9.3 mg/dL (8.4-10.2); Carbon Dioxide 27 mmol/L (22-30); Chloride 101 mmol/L (98-107); Estimated Glomerular Filt Rate > 60; Glucose 183 mg/dL (65-110); Lactate Dehydrogenase 502 U/L (120-246); Potassium 4.5 mmol/L (3.4-5.0); Sodium 139 mmol/L (137-145)
[2022-03-03 11:39] LABS: Basophils Absolute Auto 0.1 K/mm3 (0.0-0.1); Basophils Percent Auto 0.8 % (0.2-1.2); Eosinophils Absolute Auto 0.1 K/mm3 (0-0.3); Hematocrit 48.7 % (42.0-52.0); Hemoglobin 16.1 g/dL (14.0-18.0); Immature Granulocyte Absolute 0.03 K/mm3 (0.00-0.031); Immature Granulocyte Percent A 0.5 % (0-0.5); Lymphocytes Absolute Auto 0.57 K/mm3 (0.9-3.2); Lymphocytes Percent Auto 9.2 % (18.3-44.2); Mean Corpuscular HGB Conc 33.1 g/dl (32-36); Mean Corpuscular Hemoglobin 31.6 pg (26-34); Mean Corpuscular Volume 95.7 fl (80-100); Mean Platelet Volume 10.2 fl (7.4-10.4); Monocytes Absolute Auto 0.5 K/mm3 (0.1-0.6); Monocytes Percent Auto 7.3 % (2.6-8.5); Neutrophils Percent Auto 81.2 % (45.5-73.1); Platelet Count Result 180 k/mm3 (150-375); Red Blood Count 5.09 M/mm3 (4.6-6.20); Red Cell Distribution Width 14.6 % (11.5-14.5); White Blood Count 6.2 K/mm3 (4.5-10.0)
[2022-03-03 11:50] LABS: INR 3.4; Prothrombin Time 33.1 Seconds (11.1-14.7)
[2022-03-03 11:58] LABS: Alanine Aminotransferase 31 U/L (6-50); Albumin Level 4.6 g/dL (3.5-5.1); Alkaline Phosphatase 90 U/L (38-126); Anion Gap 9 mmol/L (8-16); Aspartate Amino Transferase 38 U/L (17-59); Bilirubin,Total 0.7 mg/dL (0.2-1.3); Blood Urea Nitrogen 20 mg/dL (9-20); Calcium 9.4 mg/dL (8.4-10.2); Carbon Dioxide 27 mmol/L (22-30); Chloride 100 mmol/L (98-107); Estimated Glomerular Filt Rate > 60; Glucose 182 mg/dL (65-110); Lactate Dehydrogenase 523 U/L (120-246); Potassium 4.1 mmol/L (3.4-5.0); Sodium 136 mmol/L (137-145)
== END 2022-03-10 23:59 | disposition home or self-care (01) ==
LOC: ANHLAB 11:12
PROVIDERS: Visit Provider Internal Medicine
DX: I25.5 Ischemic cardiomyopathy (principal); I50.22 Chronic systolic (congestive) heart failure; Z95.811 Presence of heart assist device
CPT/HCPCS: 36415; 80053; 83615; 85025; 85610

== ENCOUNTER 2022-04-28 10:57 | Outpatient (RCR) | payer MEDICARE, SELFPAY ==
[2022-03-17 12:28] LABS: Basophils Percent Auto 0.7 % (0.2-1.2); Eosinophils Absolute Auto 0.1 K/mm3 (0-0.3); Eosinophils Percent Auto 1.2 % (0-4.4); Hematocrit 48.3 % (42.0-52.0); Hemoglobin 15.9 g/dL (14.0-18.0); Immature Granulocyte Absolute 0.02 K/mm3 (0.00-0.031); Immature Granulocyte Percent A 0.3 % (0-0.5); Lymphocytes Absolute Auto 0.61 K/mm3 (0.9-3.2); Lymphocytes Percent Auto 10.2 % (18.3-44.2); Mean Corpuscular HGB Conc 32.9 g/dl (32-36); Mean Corpuscular Hemoglobin 30.9 pg (26-34); Mean Platelet Volume 10.3 fl (7.4-10.4); Monocytes Absolute Auto 0.3 K/mm3 (0.1-0.6); Monocytes Percent Auto 5.4 % (2.6-8.5); Neutrophils Absolute Auto 4.9 K/mm3 (1.3-6.7); Neutrophils Percent Auto 82.2 % (45.5-73.1); Platelet Count Result 187 k/mm3 (150-375); Red Blood Count 5.14 M/mm3 (4.6-6.20); Red Cell Distribution Width 14.4 % (11.5-14.5)
[2022-03-17 12:42] LABS: Alanine Aminotransferase 30 U/L (6-50); Albumin Level 4.4 g/dL (3.5-5.1); Alkaline Phosphatase 101 U/L (38-126); Anion Gap 9 mmol/L (8-16); Aspartate Amino Transferase 39 U/L (17-59); Bilirubin,Total 0.8 mg/dL (0.2-1.3); Blood Urea Nitrogen 18 mg/dL (9-20); Calcium 9.2 mg/dL (8.4-10.2); Carbon Dioxide 32 mmol/L (22-30); Chloride 98 mmol/L (98-107); Estimated Glomerular Filt Rate > 60; Glucose 201 mg/dL (65-110); Lactate Dehydrogenase 501 U/L (120-246); Potassium 4.5 mmol/L (3.4-5.0); Sodium 139 mmol/L (137-145)
[2022-03-17 12:49] LABS: INR 1.7; Prothrombin Time 19.6 Seconds (11.1-14.7)
[2022-04-01 12:16] LABS: Basophils Absolute Auto 0.1 K/mm3 (0.0-0.1); Basophils Percent Auto 0.8 % (0.2-1.2); Eosinophils Absolute Auto 0.1 K/mm3 (0-0.3); Eosinophils Percent Auto 0.8 % (0-4.4); Hematocrit 46.3 % (42.0-52.0); Hemoglobin 15.4 g/dL (14.0-18.0); Immature Granulocyte Absolute 0.04 K/mm3 (0.00-0.031); Immature Granulocyte Percent A 0.5 % (0-0.5); Lymphocytes Absolute Auto 0.72 K/mm3 (0.9-3.2); Lymphocytes Percent Auto 9.4 % (18.3-44.2); Mean Corpuscular HGB Conc 33.3 g/dl (32-36); Mean Corpuscular Hemoglobin 31.2 pg (26-34); Mean Corpuscular Volume 93.7 fl (80-100); Mean Platelet Volume 10.3 fl (7.4-10.4); Monocytes Absolute Auto 0.5 K/mm3 (0.1-0.6); Monocytes Percent Auto 6.9 % (2.6-8.5); Neutrophils Absolute Auto 6.2 K/mm3 (1.3-6.7); Neutrophils Percent Auto 81.6 % (45.5-73.1); Platelet Count Result 206 k/mm3 (150-375); Red Blood Count 4.94 M/mm3 (4.6-6.20); Red Cell Distribution Width 14.5 % (11.5-14.5); White Blood Count 7.7 K/mm3 (4.5-10.0)
[2022-04-01 12:27] LABS: Alanine Aminotransferase 31 U/L (6-50); Albumin Level 4.6 g/dL (3.5-5.1); Alkaline Phosphatase 94 U/L (38-126); Anion Gap 13 mmol/L (8-16); Aspartate Amino Transferase 40 U/L (17-59); Bilirubin,Total 0.7 mg/dL (0.2-1.3); Blood Urea Nitrogen 18 mg/dL (9-20); Calcium 9.1 mg/dL (8.4-10.2); Carbon Dioxide 23 mmol/L (22-30); Chloride 101 mmol/L (98-107); Estimated Glomerular Filt Rate > 60; Glucose 195 mg/dL (65-110); Lactate Dehydrogenase 489 U/L (120-246); Potassium 4.5 mmol/L (3.4-5.0); Sodium 137 mmol/L (137-145)
[2022-04-01 12:28] LABS: INR 2.1; Prothrombin Time 22.6 Seconds (11.1-14.7)
[2022-04-14 10:56] LABS: Basophils Absolute Auto 0.1 K/mm3 (0.0-0.1); Basophils Percent Auto 0.9 % (0.2-1.2); Eosinophils Absolute Auto 0.1 K/mm3 (0-0.3); Eosinophils Percent Auto 0.8 % (0-4.4); Hematocrit 46.5 % (42.0-52.0); Hemoglobin 15.7 g/dL (14.0-18.0); Immature Granulocyte Absolute 0.03 K/mm3 (0.00-0.031); Immature Granulocyte Percent A 0.5 % (0-0.5); Lymphocytes Absolute Auto 0.48 K/mm3 (0.9-3.2); Lymphocytes Percent Auto 7.5 % (18.3-44.2); Mean Corpuscular HGB Conc 33.8 g/dl (32-36); Mean Corpuscular Hemoglobin 31.3 pg (26-34); Mean Corpuscular Volume 92.8 fl (80-100); Mean Platelet Volume 10.1 fl (7.4-10.4); Monocytes Absolute Auto 0.4 K/mm3 (0.1-0.6); Monocytes Percent Auto 6.9 % (2.6-8.5); Neutrophils Absolute Auto 5.3 K/mm3 (1.3-6.7); Neutrophils Percent Auto 83.4 % (45.5-73.1); Platelet Count Result 162 k/mm3 (150-375); Red Blood Count 5.01 M/mm3 (4.6-6.20); Red Cell Distribution Width 14.9 % (11.5-14.5); White Blood Count 6.4 K/mm3 (4.5-10.0)
[2022-04-14 11:06] LABS: Alanine Aminotransferase 30 U/L (6-50); Albumin Level 4.5 g/dL (3.5-5.1); Alkaline Phosphatase 94 U/L (38-126); Anion Gap 11 mmol/L (8-16); Aspartate Amino Transferase 42 U/L (17-59); Bilirubin,Total 0.9 mg/dL (0.2-1.3); Blood Urea Nitrogen 17 mg/dL (9-20); Calcium 8.9 mg/dL (8.4-10.2); Carbon Dioxide 26 mmol/L (22-30); Chloride 101 mmol/L (98-107); Estimated Glomerular Filt Rate > 60; Glucose 142 mg/dL (65-110); INR 2.3; Lactate Dehydrogenase 552 U/L (120-246); Potassium 4.4 mmol/L (3.4-5.0); Prothrombin Time 24.9 Seconds (11.1-14.7); Sodium 138 mmol/L (137-145)
[2022-04-28 11:58] LABS: Basophils Percent Auto 0.6 % (0.2-1.2); Eosinophils Absolute Auto 0.1 K/mm3 (0-0.3); Eosinophils Percent Auto 1.1 % (0-4.4); Hematocrit 46.4 % (42.0-52.0); Immature Granulocyte Absolute 0.02 K/mm3 (0.00-0.031); Immature Granulocyte Percent A 0.3 % (0-0.5); Lymphocytes Absolute Auto 0.67 K/mm3 (0.9-3.2); Lymphocytes Percent Auto 10.6 % (18.3-44.2); Mean Corpuscular HGB Conc 32.3 g/dl (32-36); Mean Corpuscular Hemoglobin 31.4 pg (26-34); Mean Corpuscular Volume 97.1 fl (80-100); Mean Platelet Volume 10.4 fl (7.4-10.4); Monocytes Absolute Auto 0.4 K/mm3 (0.1-0.6); Neutrophils Absolute Auto 5.1 K/mm3 (1.3-6.7); Neutrophils Percent Auto 80.4 % (45.5-73.1); Platelet Count Result 180 k/mm3 (150-375); Red Blood Count 4.78 M/mm3 (4.6-6.20); Red Cell Distribution Width 14.8 % (11.5-14.5); White Blood Count 6.3 K/mm3 (4.5-10.0)
[2022-04-28 12:03] LABS: Alanine Aminotransferase 32 U/L (6-50); Albumin Level 4.4 g/dL (3.5-5.1); Alkaline Phosphatase 91 U/L (38-126); Anion Gap 7 mmol/L (8-16); Aspartate Amino Transferase 42 U/L (17-59); Bilirubin,Total 0.7 mg/dL (0.2-1.3); Blood Urea Nitrogen 19 mg/dL (9-20); Calcium 8.8 mg/dL (8.4-10.2); Carbon Dioxide 28 mmol/L (22-30); Chloride 102 mmol/L (98-107); Estimated Glomerular Filt Rate > 60; Glucose 265 mg/dL (65-110); Lactate Dehydrogenase 486 U/L (120-246); Potassium 4.5 mmol/L (3.4-5.0); Sodium 137 mmol/L (137-145)
[2022-04-28 12:05] LABS: INR 2.3; Prothrombin Time 24.1 Seconds (11.1-14.7)
== END 2022-06-15 23:59 | disposition home or self-care (01) ==
LOC: ANHLAB 10:57
PROVIDERS: Visit Provider Internal Medicine
DX: I25.5 Ischemic cardiomyopathy (principal); I50.22 Chronic systolic (congestive) heart failure; Z95.811 Presence of heart assist device
CPT/HCPCS: 36415; 80053; 83615; 85025; 85610

== ENCOUNTER 2022-07-08 11:45 | Outpatient (CLI) | payer MEDICARE, SELFPAY ==
[2022-07-08 12:26] LABS: Basophils Absolute Auto 0.1 K/mm3 (0.0-0.1); Basophils Percent Auto 0.7 % (0.2-1.2); Eosinophils Absolute Auto 0.1 K/mm3 (0-0.3); Eosinophils Percent Auto 0.8 % (0-4.4); Hematocrit 45.3 % (42.0-52.0); Hemoglobin 14.4 g/dL (14.0-18.0); Immature Granulocyte Absolute 0.01 K/mm3 (0.00-0.031); Immature Granulocyte Percent A 0.1 % (0-0.5); Lymphocytes Absolute Auto 0.55 K/mm3 (0.9-3.2); Lymphocytes Percent Auto 7.8 % (18.3-44.2); Mean Corpuscular HGB Conc 31.8 g/dl (32-36); Mean Corpuscular Hemoglobin 29.6 pg (26-34); Monocytes Absolute Auto 0.4 K/mm3 (0.1-0.6); Monocytes Percent Auto 5.2 % (2.6-8.5); Neutrophils Percent Auto 85.4 % (45.5-73.1); Platelet Count Result 182 k/mm3 (150-375); Red Blood Count 4.87 M/mm3 (4.6-6.20); Red Cell Distribution Width 14.6 % (11.5-14.5); White Blood Count 7.1 K/mm3 (4.5-10.0)
[2022-07-08 12:42] LABS: Alanine Aminotransferase 24 U/L (6-50); Albumin Level 4.1 g/dL (3.5-5.1); Alkaline Phosphatase 92 U/L (38-126); Anion Gap 5 mmol/L (8-16); Aspartate Amino Transferase 30 U/L (17-59); Bilirubin,Total 0.6 mg/dL (0.2-1.3); Blood Urea Nitrogen 13 mg/dL (9-20); Calcium 8.6 mg/dL (8.4-10.2); Carbon Dioxide 27 mmol/L (22-30); Chloride 104 mmol/L (98-107); Estimated Glomerular Filt Rate > 60; Glucose 290 mg/dL (65-110); Lactate Dehydrogenase 468 U/L (120-246); Potassium 4.1 mmol/L (3.4-5.0); Sodium 136 mmol/L (137-145)
== END 2022-07-08 11:46 | disposition home or self-care (01) ==
PROVIDERS: Visit Provider Internal Medicine
DX: I25.10 Atherosclerotic heart disease of native coronary artery without angina pectoris (principal); I50.22 Chronic systolic (congestive) heart failure; I25.5 Ischemic cardiomyopathy; K92.1 Melena; Z95.811 Presence of heart assist device
CPT/HCPCS: 36415; 80053; 83615; 85025; 85610

== ENCOUNTER 2022-09-15 11:57 | Outpatient (CLI) | payer MEDICARE, SELFPAY | END 2022-09-15 11:58 | disposition home or self-care (01) | DX: M10.9 Gout, unspecified (principal) | CPT/HCPCS: 36415; 80053; 83615; 84550; 85025; 85610 ==

== ENCOUNTER 2022-09-23 11:25 | Outpatient (RCR) | payer MEDICARE, SELFPAY ==
[2022-07-08 12:36] LABS: INR 3.1; Prothrombin Time 30.8 Seconds (11.1-14.7)
[2022-07-15 11:50] LABS: Basophils Percent Auto 0.5 % (0.2-1.2); Eosinophils Percent Auto 0.5 % (0-4.4); Hematocrit 46.3 % (42.0-52.0); Hemoglobin 14.9 g/dL (14.0-18.0); Immature Granulocyte Absolute 0.03 K/mm3 (0.00-0.031); Immature Granulocyte Percent A 0.5 % (0-0.5); Lymphocytes Absolute Auto 0.51 K/mm3 (0.9-3.2); Lymphocytes Percent Auto 7.8 % (18.3-44.2); Mean Corpuscular HGB Conc 32.2 g/dl (32-36); Mean Corpuscular Hemoglobin 29.7 pg (26-34); Mean Corpuscular Volume 92.2 fl (80-100); Mean Platelet Volume 10.9 fl (7.4-10.4); Monocytes Absolute Auto 0.4 K/mm3 (0.1-0.6); Monocytes Percent Auto 5.8 % (2.6-8.5); Neutrophils Absolute Auto 5.6 K/mm3 (1.3-6.7); Neutrophils Percent Auto 84.9 % (45.5-73.1); Platelet Count Result 180 k/mm3 (150-375); Red Blood Count 5.02 M/mm3 (4.6-6.20); Red Cell Distribution Width 14.4 % (11.5-14.5); White Blood Count 6.6 K/mm3 (4.5-10.0)
[2022-07-15 12:00] LABS: Prothrombin Time 30.1 Seconds (11.1-14.7)
[2022-07-15 12:04] LABS: Alanine Aminotransferase 23 U/L (6-50); Albumin Level 4.1 g/dL (3.5-5.1); Alkaline Phosphatase 95 U/L (38-126); Anion Gap 8 mmol/L (8-16); Aspartate Amino Transferase 31 U/L (17-59); Bilirubin,Total 0.7 mg/dL (0.2-1.3); Blood Urea Nitrogen 16 mg/dL (9-20); Calcium 8.9 mg/dL (8.4-10.2); Carbon Dioxide 24 mmol/L (22-30); Chloride 105 mmol/L (98-107); Estimated Glomerular Filt Rate > 60; Glucose 232 mg/dL (65-110); Lactate Dehydrogenase 492 U/L (120-246); Potassium 4.1 mmol/L (3.4-5.0); Sodium 137 mmol/L (137-145)
[2022-07-22 12:02] LABS: INR 2.2
[2022-08-05 11:40] LABS: Basophils Absolute Auto 0.1 K/mm3 (0.0-0.1); Basophils Percent Auto 0.7 % (0.2-1.2); Eosinophils Absolute Auto 0.1 K/mm3 (0-0.3); Eosinophils Percent Auto 0.8 % (0-4.4); Hematocrit 51.1 % (42.0-52.0); Hemoglobin 16.3 g/dL (14.0-18.0); Immature Granulocyte Absolute 0.03 K/mm3 (0.00-0.031); Immature Granulocyte Percent A 0.4 % (0-0.5); Lymphocytes Absolute Auto 0.62 K/mm3 (0.9-3.2); Lymphocytes Percent Auto 8.4 % (18.3-44.2); Mean Corpuscular HGB Conc 31.9 g/dl (32-36); Mean Corpuscular Hemoglobin 29.6 pg (26-34); Mean Corpuscular Volume 92.7 fl (80-100); Mean Platelet Volume 10.4 fl (7.4-10.4); Monocytes Absolute Auto 0.4 K/mm3 (0.1-0.6); Monocytes Percent Auto 5.7 % (2.6-8.5); Neutrophils Absolute Auto 6.2 K/mm3 (1.3-6.7); Platelet Count Result 169 k/mm3 (150-375); Red Blood Count 5.51 M/mm3 (4.6-6.20); Red Cell Distribution Width 14.6 % (11.5-14.5); White Blood Count 7.4 K/mm3 (4.5-10.0)
[2022-08-05 11:46] LABS: INR 2.3; Prothrombin Time 24.6 Seconds (11.1-14.7)
[2022-08-05 12:03] LABS: Alanine Aminotransferase 21 U/L (6-50); Albumin Level 4.5 g/dL (3.5-5.1); Alkaline Phosphatase 112 U/L (38-126); Anion Gap 9 mmol/L (8-16); Aspartate Amino Transferase 31 U/L (17-59); Bilirubin,Total 0.8 mg/dL (0.2-1.3); Blood Urea Nitrogen 15 mg/dL (9-20); Calcium 9.1 mg/dL (8.4-10.2); Carbon Dioxide 29 mmol/L (22-30); Chloride 100 mmol/L (98-107); Estimated Glomerular Filt Rate > 60; Glucose 210 mg/dL (65-110); Lactate Dehydrogenase 502 U/L (120-246); Potassium 4.2 mmol/L (3.4-5.0); Sodium 138 mmol/L (137-145)
[2022-08-19 11:21] LABS: Basophils Absolute Auto 0.1 K/mm3 (0.0-0.1); Basophils Percent Auto 0.7 % (0.2-1.2); Eosinophils Absolute Auto 0.1 K/mm3 (0-0.3); Eosinophils Percent Auto 1.2 % (0-4.4); Hemoglobin 15.7 g/dL (14.0-18.0); Immature Granulocyte Absolute 0.02 K/mm3 (0.00-0.031); Immature Granulocyte Percent A 0.3 % (0-0.5); Lymphocytes Absolute Auto 0.59 K/mm3 (0.9-3.2); Lymphocytes Percent Auto 8.6 % (18.3-44.2); Mean Corpuscular HGB Conc 31.4 g/dl (32-36); Mean Corpuscular Hemoglobin 29.7 pg (26-34); Mean Corpuscular Volume 94.7 fl (80-100); Mean Platelet Volume 10.5 fl (7.4-10.4); Monocytes Absolute Auto 0.4 K/mm3 (0.1-0.6); Monocytes Percent Auto 5.7 % (2.6-8.5); Neutrophils Absolute Auto 5.7 K/mm3 (1.3-6.7); Neutrophils Percent Auto 83.5 % (45.5-73.1); Platelet Count Result 160 k/mm3 (150-375); Red Blood Count 5.28 M/mm3 (4.6-6.20); Red Cell Distribution Width 14.6 % (11.5-14.5); White Blood Count 6.9 K/mm3 (4.5-10.0)
[2022-08-19 11:35] LABS: Alanine Aminotransferase 24 U/L (6-50); Albumin Level 4.2 g/dL (3.5-5.1); Alkaline Phosphatase 106 U/L (38-126); Anion Gap 10 mmol/L (8-16); Aspartate Amino Transferase 32 U/L (17-59); Bilirubin,Total 0.7 mg/dL (0.2-1.3); Blood Urea Nitrogen 16 mg/dL (9-20); Carbon Dioxide 23 mmol/L (22-30); Chloride 103 mmol/L (98-107); Estimated Glomerular Filt Rate > 60; Glucose 214 mg/dL (65-110); INR 1.9; Lactate Dehydrogenase 483 U/L (120-246); Potassium 4.1 mmol/L (3.4-5.0); Prothrombin Time 20.9 Seconds (11.1-14.7); Sodium 136 mmol/L (137-145)
[2022-09-02 12:00] LABS: Basophils Absolute Auto 0.1 K/mm3 (0.0-0.1); Basophils Percent Auto 0.8 % (0.2-1.2); Eosinophils Percent Auto 0.6 % (0-4.4); Hematocrit 50.8 % (42.0-52.0); Hemoglobin 16.4 g/dL (14.0-18.0); Immature Granulocyte Absolute 0.02 K/mm3 (0.00-0.031); Immature Granulocyte Percent A 0.3 % (0-0.5); Lymphocytes Absolute Auto 0.54 K/mm3 (0.9-3.2); Lymphocytes Percent Auto 8.4 % (18.3-44.2); Mean Corpuscular HGB Conc 32.3 g/dl (32-36); Mean Corpuscular Hemoglobin 29.2 pg (26-34); Mean Corpuscular Volume 90.6 fl (80-100); Mean Platelet Volume 10.6 fl (7.4-10.4); Monocytes Absolute Auto 0.4 K/mm3 (0.1-0.6); Monocytes Percent Auto 6.8 % (2.6-8.5); Neutrophils Absolute Auto 5.4 K/mm3 (1.3-6.7); Neutrophils Percent Auto 83.1 % (45.5-73.1); Platelet Count Result 142 k/mm3 (150-375); Red Blood Count 5.61 M/mm3 (4.6-6.20); Red Cell Distribution Width 14.6 % (11.5-14.5); White Blood Count 6.5 K/mm3 (4.5-10.0)
[2022-09-02 12:13] LABS: INR 2.3; Prothrombin Time 24.2 Seconds (11.1-14.7)
[2022-09-02 12:24] LABS: Alanine Aminotransferase 24 U/L (6-50); Albumin Level 4.5 g/dL (3.5-5.1); Alkaline Phosphatase 106 U/L (38-126); Anion Gap 12 mmol/L (8-16); Aspartate Amino Transferase 29 U/L (17-59); Bilirubin,Total 0.7 mg/dL (0.2-1.3); Blood Urea Nitrogen 15 mg/dL (9-20); Calcium 8.9 mg/dL (8.4-10.2); Carbon Dioxide 26 mmol/L (22-30); Chloride 101 mmol/L (98-107); Estimated Glomerular Filt Rate > 60; Glucose 238 mg/dL (65-110); Lactate Dehydrogenase 513 U/L (120-246); Potassium 4.2 mmol/L (3.4-5.0); Sodium 139 mmol/L (137-145)
[2022-09-15 12:35] LABS: Basophils Absolute Auto 0.1 K/mm3 (0.0-0.1); Basophils Percent Auto 0.8 % (0.2-1.2); Eosinophils Absolute Auto 0.1 K/mm3 (0-0.3); Eosinophils Percent Auto 0.8 % (0-4.4); Hematocrit 51.1 % (42.0-52.0); Hemoglobin 16.6 g/dL (14.0-18.0); Immature Granulocyte Absolute 0.02 K/mm3 (0.00-0.031); Immature Granulocyte Percent A 0.3 % (0-0.5); Lymphocytes Absolute Auto 0.58 K/mm3 (0.9-3.2); Lymphocytes Percent Auto 8.7 % (18.3-44.2); Mean Corpuscular HGB Conc 32.5 g/dl (32-36); Mean Corpuscular Hemoglobin 29.4 pg (26-34); Mean Corpuscular Volume 90.4 fl (80-100); Mean Platelet Volume 10.4 fl (7.4-10.4); Monocytes Absolute Auto 0.4 K/mm3 (0.1-0.6); Monocytes Percent Auto 6.5 % (2.6-8.5); Neutrophils Absolute Auto 5.5 K/mm3 (1.3-6.7); Neutrophils Percent Auto 82.9 % (45.5-73.1); Platelet Count Result 155 k/mm3 (150-375); Red Blood Count 5.65 M/mm3 (4.6-6.20); Red Cell Distribution Width 15.1 % (11.5-14.5); White Blood Count 6.6 K/mm3 (4.5-10.0)
[2022-09-15 12:45] LABS: INR 1.6
[2022-09-15 13:22] LABS: Anion Gap 8 mmol/L (8-16); Carbon Dioxide 27 mmol/L (22-30); Chloride 100 mmol/L (98-107); Potassium 4.6 mmol/L (3.4-5.0); Sodium 135 mmol/L (137-145)
[2022-09-15 13:23] LABS: Alanine Aminotransferase 29 U/L (6-50); Albumin Level 4.7 g/dL (3.5-5.1); Alkaline Phosphatase 100 U/L (38-126); Aspartate Amino Transferase 36 U/L (17-59); Bilirubin,Total 0.6 mg/dL (0.2-1.3); Blood Urea Nitrogen 20 mg/dL (9-20); Calcium 9.6 mg/dL (8.4-10.2); Estimated Glomerular Filt Rate > 60; Glucose 211 mg/dL (65-110)
[2022-09-15 13:34] LABS: Lactate Dehydrogenase 551 U/L (120-246)
[2022-09-23 11:56] LABS: Basophils Absolute Auto 0.1 K/mm3 (0.0-0.1); Basophils Percent Auto 0.8 % (0.2-1.2); Eosinophils Absolute Auto 0.1 K/mm3 (0-0.3); Eosinophils Percent Auto 0.8 % (0-4.4); Hematocrit 50.1 % (42.0-52.0); Hemoglobin 16.3 g/dL (14.0-18.0); Immature Granulocyte Absolute 0.02 K/mm3 (0.00-0.031); Immature Granulocyte Percent A 0.3 % (0-0.5); Lymphocytes Percent Auto 7.7 % (18.3-44.2); Mean Corpuscular HGB Conc 32.5 g/dl (32-36); Mean Corpuscular Hemoglobin 29.4 pg (26-34); Mean Corpuscular Volume 90.3 fl (80-100); Mean Platelet Volume 10.1 fl (7.4-10.4); Monocytes Absolute Auto 0.4 K/mm3 (0.1-0.6); Monocytes Percent Auto 5.6 % (2.6-8.5); Neutrophils Absolute Auto 6.6 K/mm3 (1.3-6.7); Neutrophils Percent Auto 84.8 % (45.5-73.1); Platelet Count Result 176 k/mm3 (150-375); Red Blood Count 5.55 M/mm3 (4.6-6.20); Red Cell Distribution Width 15.1 % (11.5-14.5); White Blood Count 7.8 K/mm3 (4.5-10.0)
[2022-09-23 12:11] LABS: INR 1.7; Prothrombin Time 20.7 Seconds (11.1-14.7)
[2022-09-23 12:12] LABS: Alanine Aminotransferase 29 U/L (6-50); Albumin Level 4.4 g/dL (3.5-5.1); Alkaline Phosphatase 110 U/L (38-126); Anion Gap 10 mmol/L (8-16); Aspartate Amino Transferase 33 U/L (17-59); Bilirubin,Total 0.8 mg/dL (0.2-1.3); Blood Urea Nitrogen 17 mg/dL (9-20); Calcium 9.1 mg/dL (8.4-10.2); Carbon Dioxide 26 mmol/L (22-30); Chloride 100 mmol/L (98-107); Estimated Glomerular Filt Rate > 60; Glucose 263 mg/dL (65-110); Lactate Dehydrogenase 488 U/L (120-246); Potassium 4.2 mmol/L (3.4-5.0); Sodium 136 mmol/L (137-145)
== END 2022-10-06 23:59 | disposition home or self-care (01) ==
LOC: ANHLAB 11:25
PROVIDERS: Visit Provider Internal Medicine
DX: I50.22 Chronic systolic (congestive) heart failure (principal); I25.5 Ischemic cardiomyopathy; I25.10 Atherosclerotic heart disease of native coronary artery without angina pectoris; K92.1 Melena; Z95.811 Presence of heart assist device
CPT/HCPCS: 36415; 80053; 83615; 84550; 85025; 85610

== ENCOUNTER 2022-12-23 11:26 | Outpatient (RCR) | payer MEDICARE, SELFPAY ==
[2022-10-07 11:19] LABS: Basophils Absolute Auto 0.1 K/mm3 (0.0-0.1); Basophils Percent Auto 0.7 % (0.2-1.2); Eosinophils Absolute Auto 0.1 K/mm3 (0-0.3); Eosinophils Percent Auto 0.9 % (0-4.4); Hematocrit 52.3 % (42.0-52.0); Immature Granulocyte Absolute 0.03 K/mm3 (0.00-0.031); Immature Granulocyte Percent A 0.4 % (0-0.5); Lymphocytes Absolute Auto 0.53 K/mm3 (0.9-3.2); Lymphocytes Percent Auto 7.6 % (18.3-44.2); Mean Corpuscular HGB Conc 32.5 g/dl (32-36); Mean Corpuscular Hemoglobin 29.6 pg (26-34); Mean Platelet Volume 10.2 fl (7.4-10.4); Monocytes Absolute Auto 0.4 K/mm3 (0.1-0.6); Monocytes Percent Auto 5.3 % (2.6-8.5); Neutrophils Absolute Auto 5.9 K/mm3 (1.3-6.7); Neutrophils Percent Auto 85.1 % (45.5-73.1); Platelet Count Result 168 k/mm3 (150-375); Red Blood Count 5.75 M/mm3 (4.6-6.20); White Blood Count 6.9 K/mm3 (4.5-10.0)
[2022-10-07 11:29] LABS: Alanine Aminotransferase 26 U/L (6-50); Albumin Level 4.6 g/dL (3.5-5.1); Alkaline Phosphatase 104 U/L (38-126); Anion Gap 4 mmol/L (8-16); Aspartate Amino Transferase 37 U/L (17-59); Bilirubin,Total 0.8 mg/dL (0.2-1.3); Blood Urea Nitrogen 17 mg/dL (9-20); Carbon Dioxide 34 mmol/L (22-30); Chloride 99 mmol/L (98-107); Estimated Glomerular Filt Rate > 60; Glucose 199 mg/dL (65-110); Lactate Dehydrogenase 532 U/L (120-246); Potassium 3.7 mmol/L (3.4-5.0); Sodium 137 mmol/L (137-145)
[2022-10-07 11:31] LABS: INR 1.7; Prothrombin Time 20.8 Seconds (11.1-14.7)
[2022-10-21 13:31] LABS: Basophils Absolute Auto 0.1 K/mm3 (0.0-0.1); Basophils Percent Auto 0.7 % (0.2-1.2); Eosinophils Percent Auto 0.6 % (0-4.4); Hematocrit 49.5 % (42.0-52.0); Hemoglobin 15.8 g/dL (14.0-18.0); Immature Granulocyte Absolute 0.02 K/mm3 (0.00-0.031); Immature Granulocyte Percent A 0.3 % (0-0.5); Lymphocytes Absolute Auto 0.53 K/mm3 (0.9-3.2); Lymphocytes Percent Auto 7.8 % (18.3-44.2); Mean Corpuscular HGB Conc 31.9 g/dl (32-36); Mean Corpuscular Hemoglobin 29.4 pg (26-34); Mean Platelet Volume 10.8 fl (7.4-10.4); Monocytes Absolute Auto 0.4 K/mm3 (0.1-0.6); Monocytes Percent Auto 6.2 % (2.6-8.5); Neutrophils Absolute Auto 5.7 K/mm3 (1.3-6.7); Neutrophils Percent Auto 84.4 % (45.5-73.1); Platelet Count Result 176 k/mm3 (150-375); Red Blood Count 5.38 M/mm3 (4.6-6.20); White Blood Count 6.8 K/mm3 (4.5-10.0)
[2022-10-21 13:53] LABS: Alanine Aminotransferase 25 U/L (6-50); Albumin Level 4.3 g/dL (3.5-5.1); Alkaline Phosphatase 94 U/L (38-126); Anion Gap 12 mmol/L (8-16); Aspartate Amino Transferase 33 U/L (17-59); Bilirubin,Total 0.7 mg/dL (0.2-1.3); Blood Urea Nitrogen 16 mg/dL (9-20); Calcium 8.8 mg/dL (8.4-10.2); Carbon Dioxide 26 mmol/L (22-30); Chloride 100 mmol/L (98-107); Estimated Glomerular Filt Rate > 60; Glucose 192 mg/dL (65-110); Lactate Dehydrogenase 510 U/L (120-246); Potassium 3.7 mmol/L (3.4-5.0); Sodium 138 mmol/L (137-145)
[2022-10-21 13:58] LABS: INR 2.4; Prothrombin Time 27.6 Seconds (11.1-14.7)
[2022-10-28 13:06] LABS: Basophils Absolute Auto 0.1 K/mm3 (0.0-0.1); Basophils Percent Auto 0.6 % (0.2-1.2); Eosinophils Percent Auto 0.5 % (0-4.4); Hematocrit 51.4 % (42.0-52.0); Hemoglobin 16.5 g/dL (14.0-18.0); Immature Granulocyte Absolute 0.03 K/mm3 (0.00-0.031); Immature Granulocyte Percent A 0.4 % (0-0.5); Lymphocytes Absolute Auto 0.61 K/mm3 (0.9-3.2); Lymphocytes Percent Auto 7.7 % (18.3-44.2); Mean Corpuscular HGB Conc 32.1 g/dl (32-36); Mean Corpuscular Hemoglobin 29.9 pg (26-34); Mean Corpuscular Volume 93.1 fl (80-100); Mean Platelet Volume 10.1 fl (7.4-10.4); Monocytes Absolute Auto 0.5 K/mm3 (0.1-0.6); Monocytes Percent Auto 6.1 % (2.6-8.5); Neutrophils Absolute Auto 6.7 K/mm3 (1.3-6.7); Neutrophils Percent Auto 84.7 % (45.5-73.1); Platelet Count Result 160 k/mm3 (150-375); Red Blood Count 5.52 M/mm3 (4.6-6.20); Red Cell Distribution Width 15.9 % (11.5-14.5); White Blood Count 7.9 K/mm3 (4.5-10.0)
[2022-10-28 13:17] LABS: INR 1.7; Prothrombin Time 20.8 Seconds (11.1-14.7)
[2022-10-28 13:18] LABS: Alanine Aminotransferase 25 U/L (6-50); Albumin Level 4.4 g/dL (3.5-5.1); Alkaline Phosphatase 93 U/L (38-126); Anion Gap 11 mmol/L (8-16); Aspartate Amino Transferase 32 U/L (17-59); Bilirubin,Total 0.8 mg/dL (0.2-1.3); Blood Urea Nitrogen 16 mg/dL (9-20); Calcium 9.1 mg/dL (8.4-10.2); Carbon Dioxide 25 mmol/L (22-30); Chloride 100 mmol/L (98-107); Estimated Glomerular Filt Rate > 60; Glucose 168 mg/dL (65-110); Lactate Dehydrogenase 408 U/L (120-246); Potassium 4.2 mmol/L (3.4-5.0); Sodium 136 mmol/L (137-145)
[2022-11-11 13:12] LABS: Basophils Absolute Auto 0.1 K/mm3 (0.0-0.1); Basophils Percent Auto 0.7 % (0.2-1.2); Eosinophils Percent Auto 0.4 % (0-4.4); Hematocrit 51.9 % (42.0-52.0); Hemoglobin 16.6 g/dL (14.0-18.0); Immature Granulocyte Absolute 0.02 K/mm3 (0.00-0.031); Immature Granulocyte Percent A 0.3 % (0-0.5); Lymphocytes Percent Auto 8.1 % (18.3-44.2); Mean Corpuscular Hemoglobin 29.8 pg (26-34); Mean Corpuscular Volume 93.2 fl (80-100); Mean Platelet Volume 10.6 fl (7.4-10.4); Monocytes Absolute Auto 0.4 K/mm3 (0.1-0.6); Monocytes Percent Auto 5.8 % (2.6-8.5); Neutrophils Absolute Auto 6.3 K/mm3 (1.3-6.7); Neutrophils Percent Auto 84.7 % (45.5-73.1); Platelet Count Result 149 k/mm3 (150-375); Red Blood Count 5.57 M/mm3 (4.6-6.20); Red Cell Distribution Width 15.9 % (11.5-14.5); White Blood Count 7.5 K/mm3 (4.5-10.0)
[2022-11-11 13:21] LABS: Alanine Aminotransferase 24 U/L (6-50); Albumin Level 4.4 g/dL (3.5-5.1); Alkaline Phosphatase 103 U/L (38-126); Anion Gap 8 mmol/L (8-16); Aspartate Amino Transferase 34 U/L (17-59); Blood Urea Nitrogen 16 mg/dL (9-20); Carbon Dioxide 27 mmol/L (22-30); Chloride 101 mmol/L (98-107); Estimated Glomerular Filt Rate > 60; Glucose 220 mg/dL (65-110); Lactate Dehydrogenase 408 U/L (120-246); Potassium 4.4 mmol/L (3.4-5.0); Sodium 136 mmol/L (137-145)
[2022-11-11 13:22] LABS: INR 1.7
[2022-11-25 11:41] LABS: Basophils Absolute Auto 0.1 K/mm3 (0.0-0.1); Basophils Percent Auto 0.7 % (0.2-1.2); Eosinophils Percent Auto 0.3 % (0-4.4); Hematocrit 49.9 % (42.0-52.0); Hemoglobin 16.5 g/dL (14.0-18.0); Immature Granulocyte Absolute 0.03 K/mm3 (0.00-0.031); Immature Granulocyte Percent A 0.4 % (0-0.5); Lymphocytes Absolute Auto 0.52 K/mm3 (0.9-3.2); Mean Corpuscular HGB Conc 33.1 g/dl (32-36); Mean Corpuscular Hemoglobin 30.2 pg (26-34); Mean Corpuscular Volume 91.4 fl (80-100); Mean Platelet Volume 10.7 fl (7.4-10.4); Monocytes Absolute Auto 0.5 K/mm3 (0.1-0.6); Monocytes Percent Auto 6.3 % (2.6-8.5); Neutrophils Absolute Auto 6.4 K/mm3 (1.3-6.7); Neutrophils Percent Auto 85.3 % (45.5-73.1); Platelet Count Result 158 k/mm3 (150-375); Red Blood Count 5.46 M/mm3 (4.6-6.20); Red Cell Distribution Width 15.7 % (11.5-14.5); White Blood Count 7.5 K/mm3 (4.5-10.0)
[2022-11-25 11:52] LABS: Alanine Aminotransferase 27 U/L (6-50); Albumin Level 4.4 g/dL (3.5-5.1); Alkaline Phosphatase 99 U/L (38-126); Anion Gap 10 mmol/L (8-16); Aspartate Amino Transferase 32 U/L (17-59); Bilirubin,Total 0.8 mg/dL (0.2-1.3); Blood Urea Nitrogen 16 mg/dL (9-20); Calcium 9.1 mg/dL (8.4-10.2); Carbon Dioxide 25 mmol/L (22-30); Chloride 100 mmol/L (98-107); Estimated Glomerular Filt Rate > 60; Glucose 256 mg/dL (65-110); INR 1.9; Lactate Dehydrogenase 403 U/L (120-246); Potassium 4.4 mmol/L (3.4-5.0); Prothrombin Time 23.3 Seconds (11.1-14.7); Sodium 135 mmol/L (137-145)
[2022-12-09 11:50] LABS: INR 1.6; Prothrombin Time 19.8 Seconds (11.1-14.7)
[2022-12-09 11:54] LABS: Alanine Aminotransferase 29 U/L (6-50); Albumin Level 4.3 g/dL (3.5-5.1); Alkaline Phosphatase 99 U/L (38-126); Anion Gap 10 mmol/L (8-16); Aspartate Amino Transferase 32 U/L (17-59); Bilirubin,Total 0.8 mg/dL (0.2-1.3); Blood Urea Nitrogen 18 mg/dL (9-20); Carbon Dioxide 27 mmol/L (22-30); Chloride 101 mmol/L (98-107); Estimated Glomerular Filt Rate > 60; Glucose 199 mg/dL (65-110); Lactate Dehydrogenase 396 U/L (120-246); Potassium 4.1 mmol/L (3.4-5.0); Sodium 138 mmol/L (137-145)
[2022-12-09 11:55] LABS: Basophils Absolute Auto 0.1 K/mm3 (0.0-0.1); Eosinophils Absolute Auto 0.1 K/mm3 (0-0.3); Eosinophils Percent Auto 1.1 % (0-4.4); Hematocrit 53.5 % (42.0-52.0); Hemoglobin 17.3 g/dL (14.0-18.0); Immature Granulocyte Absolute 0.02 K/mm3 (0.00-0.031); Immature Granulocyte Percent A 0.3 % (0-0.5); Lymphocytes Absolute Auto 0.58 K/mm3 (0.9-3.2); Mean Corpuscular HGB Conc 32.3 g/dl (32-36); Mean Corpuscular Hemoglobin 30.3 pg (26-34); Mean Corpuscular Volume 93.7 fl (80-100); Mean Platelet Volume 10.1 fl (7.4-10.4); Monocytes Absolute Auto 0.4 K/mm3 (0.1-0.6); Monocytes Percent Auto 5.8 % (2.6-8.5); Neutrophils Absolute Auto 6.1 K/mm3 (1.3-6.7); Neutrophils Percent Auto 83.8 % (45.5-73.1); Platelet Count Result 165 k/mm3 (150-375); Red Blood Count 5.71 M/mm3 (4.6-6.20); Red Cell Distribution Width 15.9 % (11.5-14.5); White Blood Count 7.2 K/mm3 (4.5-10.0)
[2022-12-23 12:07] LABS: Basophils Absolute Auto 0.1 K/mm3 (0.0-0.1); Basophils Percent Auto 0.8 % (0.2-1.2); Eosinophils Absolute Auto 0.1 K/mm3 (0-0.3); Eosinophils Percent Auto 0.9 % (0-4.4); Hematocrit 50.6 % (42.0-52.0); Hemoglobin 16.8 g/dL (14.0-18.0); Immature Granulocyte Absolute 0.03 K/mm3 (0.00-0.031); Immature Granulocyte Percent A 0.5 % (0-0.5); Lymphocytes Percent Auto 9.2 % (18.3-44.2); Mean Corpuscular HGB Conc 33.2 g/dl (32-36); Mean Corpuscular Hemoglobin 30.5 pg (26-34); Mean Platelet Volume 10.6 fl (7.4-10.4); Monocytes Absolute Auto 0.4 K/mm3 (0.1-0.6); Monocytes Percent Auto 5.3 % (2.6-8.5); Neutrophils Absolute Auto 5.5 K/mm3 (1.3-6.7); Neutrophils Percent Auto 83.3 % (45.5-73.1); Platelet Count Result 170 k/mm3 (150-375); Red Cell Distribution Width 15.3 % (11.5-14.5); White Blood Count 6.6 K/mm3 (4.5-10.0)
[2022-12-23 12:21] LABS: INR 1.5; Prothrombin Time 19.2 Seconds (11.1-14.7)
[2022-12-23 12:24] LABS: Alanine Aminotransferase 28 U/L (6-50); Albumin Level 4.5 g/dL (3.5-5.1); Alkaline Phosphatase 93 U/L (38-126); Anion Gap 9 mmol/L (8-16); Aspartate Amino Transferase 36 U/L (17-59); Bilirubin,Total 0.8 mg/dL (0.2-1.3); Blood Urea Nitrogen 18 mg/dL (9-20); Calcium 9.3 mg/dL (8.4-10.2); Carbon Dioxide 28 mmol/L (22-30); Chloride 99 mmol/L (98-107); Estimated Glomerular Filt Rate > 60; Glucose 196 mg/dL (65-110); Lactate Dehydrogenase 426 U/L (120-246); Potassium 4.1 mmol/L (3.4-5.0); Sodium 136 mmol/L (137-145)
== END 2023-01-05 23:59 | disposition home or self-care (01) ==
LOC: ANHLAB 11:26
PROVIDERS: Visit Provider Internal Medicine
DX: I50.22 Chronic systolic (congestive) heart failure (principal); I25.5 Ischemic cardiomyopathy; I25.10 Atherosclerotic heart disease of native coronary artery without angina pectoris; K92.1 Melena; Z95.811 Presence of heart assist device
CPT/HCPCS: 36415; 80053; 83615; 85025; 85610

== ENCOUNTER 2023-03-31 11:07 | Outpatient (RCR) | payer MEDICARE, SELFPAY ==
[2023-01-06 11:20] LABS: Basophils Percent Auto 0.6 % (0.2-1.2); Eosinophils Percent Auto 0.5 % (0-4.4); Hematocrit 50.7 % (42.0-52.0); Hemoglobin 16.6 g/dL (14.0-18.0); Immature Granulocyte Percent A 0.5 % (0-0.5); Lymphocytes Percent Auto 8.2 % (18.3-44.2); Mean Corpuscular HGB Conc 32.7 g/dl (32-36); Mean Corpuscular Hemoglobin 30.9 pg (26-34); Mean Corpuscular Volume 94.2 fl (80-100); Mean Platelet Volume 10.3 fl (7.4-10.4); Monocytes Percent Auto 6.5 % (2.6-8.5); Neutrophils Percent Auto 83.7 % (45.5-73.1); Platelet Count Result 149 k/mm3 (150-375); Red Blood Count 5.38 M/mm3 (4.6-6.20); White Blood Count 6.6 K/mm3 (4.5-10.0)
[2023-01-06 11:21] LABS: Immature Granulocyte Absolute 0.03 K/mm3 (0.00-0.031); Lymphocytes Absolute Auto 0.54 K/mm3 (0.9-3.2); Monocytes Absolute Auto 0.4 K/mm3 (0.1-0.6); Neutrophils Absolute Auto 5.5 K/mm3 (1.3-6.7)
[2023-01-06 11:30] LABS: INR 1.8; Prothrombin Time 22.6 Seconds (11.1-14.7)
[2023-01-06 11:37] LABS: Alanine Aminotransferase 31 U/L (6-50); Albumin Level 4.3 g/dL (3.5-5.1); Alkaline Phosphatase 90 U/L (38-126); Anion Gap 10 mmol/L (8-16); Aspartate Amino Transferase 31 U/L (17-59); Bilirubin,Total 0.7 mg/dL (0.2-1.3); Blood Urea Nitrogen 19 mg/dL (9-20); Carbon Dioxide 24 mmol/L (22-30); Chloride 103 mmol/L (98-107); Estimated Glomerular Filt Rate > 60; Glucose 177 mg/dL (65-110); Lactate Dehydrogenase 414 U/L (120-246); Potassium 4.2 mmol/L (3.4-5.0); Sodium 137 mmol/L (137-145)
[2023-01-20 12:06] LABS: Basophils Percent Auto 0.6 % (0.2-1.2); Eosinophils Absolute Auto 0.1 K/mm3 (0-0.3); Eosinophils Percent Auto 1.3 % (0-4.4); Hematocrit 51.2 % (42.0-52.0); Immature Granulocyte Absolute 0.02 K/mm3 (0.00-0.031); Immature Granulocyte Percent A 0.3 % (0-0.5); Lymphocytes Absolute Auto 0.56 K/mm3 (0.9-3.2); Lymphocytes Percent Auto 8.8 % (18.3-44.2); Mean Corpuscular HGB Conc 33.2 g/dl (32-36); Mean Corpuscular Hemoglobin 30.9 pg (26-34); Mean Corpuscular Volume 93.1 fl (80-100); Monocytes Absolute Auto 0.5 K/mm3 (0.1-0.6); Monocytes Percent Auto 7.4 % (2.6-8.5); Neutrophils Absolute Auto 5.2 K/mm3 (1.3-6.7); Neutrophils Percent Auto 81.6 % (45.5-73.1); Platelet Count Result 162 k/mm3 (150-375); Red Cell Distribution Width 14.7 % (11.5-14.5); White Blood Count 6.4 K/mm3 (4.5-10.0)
[2023-01-20 12:16] LABS: INR 1.5; Prothrombin Time 19.4 Seconds (11.1-14.7)
[2023-01-20 12:20] LABS: Alanine Aminotransferase 24 U/L (6-50); Albumin Level 4.2 g/dL (3.5-5.1); Alkaline Phosphatase 88 U/L (38-126); Anion Gap 9 mmol/L (8-16); Aspartate Amino Transferase 33 U/L (17-59); Bilirubin,Total 0.8 mg/dL (0.2-1.3); Blood Urea Nitrogen 14 mg/dL (9-20); Calcium 9.1 mg/dL (8.4-10.2); Carbon Dioxide 26 mmol/L (22-30); Chloride 102 mmol/L (98-107); Estimated Glomerular Filt Rate > 60; Glucose 179 mg/dL (65-110); Lactate Dehydrogenase 451 U/L (120-246); Potassium 4.4 mmol/L (3.4-5.0); Sodium 137 mmol/L (137-145)
[2023-02-03 12:17] LABS: Basophils Absolute Auto 0.1 K/mm3 (0.0-0.1); Basophils Percent Auto 0.9 % (0.2-1.2); Eosinophils Absolute Auto 0.1 K/mm3 (0-0.3); Eosinophils Percent Auto 0.9 % (0-4.4); Hematocrit 50.4 % (42.0-52.0); Hemoglobin 16.8 g/dL (14.0-18.0); Immature Granulocyte Absolute 0.02 K/mm3 (0.00-0.031); Immature Granulocyte Percent A 0.3 % (0-0.5); Lymphocytes Absolute Auto 0.65 K/mm3 (0.9-3.2); Lymphocytes Percent Auto 9.3 % (18.3-44.2); Mean Corpuscular HGB Conc 33.3 g/dl (32-36); Mean Corpuscular Hemoglobin 30.8 pg (26-34); Mean Corpuscular Volume 92.5 fl (80-100); Monocytes Absolute Auto 0.5 K/mm3 (0.1-0.6); Monocytes Percent Auto 6.8 % (2.6-8.5); Neutrophils Absolute Auto 5.7 K/mm3 (1.3-6.7); Neutrophils Percent Auto 81.8 % (45.5-73.1); Platelet Count Result 174 k/mm3 (150-375); Red Blood Count 5.45 M/mm3 (4.6-6.20); Red Cell Distribution Width 14.2 % (11.5-14.5)
[2023-02-03 12:25] LABS: Alanine Aminotransferase 25 U/L (6-50); Albumin Level 4.4 g/dL (3.5-5.1); Alkaline Phosphatase 90 U/L (38-126); Anion Gap 10 mmol/L (8-16); Aspartate Amino Transferase 31 U/L (17-59); Bilirubin,Total 0.7 mg/dL (0.2-1.3); Blood Urea Nitrogen 20 mg/dL (9-20); Calcium 9.2 mg/dL (8.4-10.2); Carbon Dioxide 25 mmol/L (22-30); Chloride 102 mmol/L (98-107); Estimated Glomerular Filt Rate > 60; Glucose 167 mg/dL (65-110); Lactate Dehydrogenase 459 U/L (120-246); Sodium 137 mmol/L (137-145)
[2023-02-03 12:27] LABS: INR 1.8; Prothrombin Time 21.9 Seconds (11.1-14.7)
[2023-02-17 13:09] LABS: Basophils Absolute Auto 0.1 K/mm3 (0.0-0.1); Basophils Percent Auto 0.7 % (0.2-1.2); Eosinophils Absolute Auto 0.1 K/mm3 (0-0.3); Eosinophils Percent Auto 0.9 % (0-4.4); Hematocrit 50.5 % (42.0-52.0); Hemoglobin 16.2 g/dL (14.0-18.0); Immature Granulocyte Absolute 0.02 K/mm3 (0.00-0.031); Immature Granulocyte Percent A 0.3 % (0-0.5); Lymphocytes Absolute Auto 0.63 K/mm3 (0.9-3.2); Lymphocytes Percent Auto 9.1 % (18.3-44.2); Mean Corpuscular HGB Conc 32.1 g/dl (32-36); Mean Corpuscular Hemoglobin 30.3 pg (26-34); Mean Corpuscular Volume 94.6 fl (80-100); Monocytes Absolute Auto 0.4 K/mm3 (0.1-0.6); Monocytes Percent Auto 6.3 % (2.6-8.5); Neutrophils Absolute Auto 5.8 K/mm3 (1.3-6.7); Neutrophils Percent Auto 82.7 % (45.5-73.1); Platelet Count Result 177 k/mm3 (150-375); Red Blood Count 5.34 M/mm3 (4.6-6.20); Red Cell Distribution Width 14.2 % (11.5-14.5)
[2023-02-17 13:15] LABS: Alanine Aminotransferase 27 U/L (6-50); Albumin Level 4.4 g/dL (3.5-5.1); Alkaline Phosphatase 87 U/L (38-126); Anion Gap 8 mmol/L (8-16); Aspartate Amino Transferase 33 U/L (17-59); Bilirubin,Total 0.9 mg/dL (0.2-1.3); Blood Urea Nitrogen 16 mg/dL (9-20); Calcium 9.1 mg/dL (8.4-10.2); Carbon Dioxide 27 mmol/L (22-30); Chloride 101 mmol/L (98-107); Estimated Glomerular Filt Rate > 60; Glucose 161 mg/dL (65-110); Lactate Dehydrogenase 451 U/L (120-246); Potassium 3.9 mmol/L (3.4-5.0); Sodium 136 mmol/L (137-145)
[2023-02-17 13:30] LABS: INR 1.7; Prothrombin Time 20.8 Seconds (11.1-14.7)
[2023-03-03 12:00] LABS: Basophils Absolute Auto 0.1 K/mm3 (0.0-0.1); Basophils Percent Auto 0.8 % (0.2-1.2); Eosinophils Percent Auto 0.7 % (0-4.4); Hematocrit 52.7 % (42.0-52.0); Hemoglobin 17.2 g/dL (14.0-18.0); Immature Granulocyte Absolute 0.02 K/mm3 (0.00-0.031); Immature Granulocyte Percent A 0.3 % (0-0.5); Lymphocytes Absolute Auto 0.52 K/mm3 (0.9-3.2); Lymphocytes Percent Auto 8.5 % (18.3-44.2); Mean Corpuscular HGB Conc 32.6 g/dl (32-36); Mean Corpuscular Hemoglobin 30.4 pg (26-34); Mean Corpuscular Volume 93.3 fl (80-100); Mean Platelet Volume 10.5 fl (7.4-10.4); Monocytes Absolute Auto 0.4 K/mm3 (0.1-0.6); Monocytes Percent Auto 6.4 % (2.6-8.5); Neutrophils Absolute Auto 5.1 K/mm3 (1.3-6.7); Neutrophils Percent Auto 83.3 % (45.5-73.1); Platelet Count Result 161 k/mm3 (150-375); Red Blood Count 5.65 M/mm3 (4.6-6.20); Red Cell Distribution Width 14.5 % (11.5-14.5); White Blood Count 6.1 K/mm3 (4.5-10.0)
[2023-03-03 12:10] LABS: Alanine Aminotransferase 28 U/L (6-50); Albumin Level 4.5 g/dL (3.5-5.1); Alkaline Phosphatase 82 U/L (38-126); Anion Gap 9 mmol/L (8-16); Aspartate Amino Transferase 34 U/L (17-59); Bilirubin,Total 0.9 mg/dL (0.2-1.3); Blood Urea Nitrogen 16 mg/dL (9-20); Calcium 9.1 mg/dL (8.4-10.2); Carbon Dioxide 26 mmol/L (22-30); Chloride 101 mmol/L (98-107); Estimated Glomerular Filt Rate > 60; Glucose 219 mg/dL (65-110); Lactate Dehydrogenase 445 U/L (120-246); Potassium 4.1 mmol/L (3.4-5.0); Sodium 136 mmol/L (137-145)
[2023-03-03 12:11] LABS: INR 2.2; Prothrombin Time 26.6 Seconds (11.1-14.7)
[2023-03-17 12:18] LABS: Basophils Absolute Auto 0.1 K/mm3 (0.0-0.1); Eosinophils Absolute Auto 0.1 K/mm3 (0-0.3); Hematocrit 51.8 % (42.0-52.0); Hemoglobin 17.1 g/dL (14.0-18.0); Immature Granulocyte Absolute 0.01 K/mm3 (0.00-0.031); Immature Granulocyte Percent A 0.2 % (0-0.5); Lymphocytes Absolute Auto 0.62 K/mm3 (0.9-3.2); Mean Corpuscular Hemoglobin 30.4 pg (26-34); Mean Platelet Volume 10.1 fl (7.4-10.4); Monocytes Absolute Auto 0.4 K/mm3 (0.1-0.6); Monocytes Percent Auto 6.3 % (2.6-8.5); Neutrophils Percent Auto 81.5 % (45.5-73.1); Platelet Count Result 149 k/mm3 (150-375); Red Blood Count 5.63 M/mm3 (4.6-6.20); Red Cell Distribution Width 14.1 % (11.5-14.5); White Blood Count 6.2 K/mm3 (4.5-10.0)
[2023-03-17 12:26] LABS: INR 1.5; Prothrombin Time 19.1 Seconds (11.1-14.7)
[2023-03-17 12:27] LABS: Alanine Aminotransferase 25 U/L (6-50); Albumin Level 4.3 g/dL (3.5-5.1); Alkaline Phosphatase 85 U/L (38-126); Anion Gap 9 mmol/L (8-16); Aspartate Amino Transferase 33 U/L (17-59); Bilirubin,Total 0.9 mg/dL (0.2-1.3); Blood Urea Nitrogen 16 mg/dL (9-20); Calcium 9.4 mg/dL (8.4-10.2); Carbon Dioxide 27 mmol/L (22-30); Chloride 101 mmol/L (98-107); Estimated Glomerular Filt Rate > 60; Glucose 179 mg/dL (65-110); Lactate Dehydrogenase 467 U/L (120-246); Potassium 4.2 mmol/L (3.4-5.0); Sodium 137 mmol/L (137-145)
[2023-03-31 11:36] LABS: Basophils Absolute Auto 0.1 K/mm3 (0.0-0.1); Basophils Percent Auto 1.1 % (0.2-1.2); Eosinophils Absolute Auto 0.1 K/mm3 (0-0.3); Eosinophils Percent Auto 1.1 % (0-4.4); Hematocrit 51.9 % (42.0-52.0); Hemoglobin 16.8 g/dL (14.0-18.0); Immature Granulocyte Absolute 0.02 K/mm3 (0.00-0.031); Immature Granulocyte Percent A 0.4 % (0-0.5); Immature Platelet Fraction Pct 5.2 % (0.9-11.2); Lymphocytes Absolute Auto 0.64 K/mm3 (0.9-3.2); Lymphocytes Percent Auto 11.4 % (18.3-44.2); Mean Corpuscular HGB Conc 32.4 g/dl (32-36); Mean Corpuscular Hemoglobin 30.2 pg (26-34); Mean Corpuscular Volume 93.3 fl (80-100); Mean Platelet Volume 10.6 fl (7.4-10.4); Monocytes Absolute Auto 0.4 K/mm3 (0.1-0.6); Monocytes Percent Auto 6.2 % (2.6-8.5); Neutrophils Absolute Auto 4.5 K/mm3 (1.3-6.7); Neutrophils Percent Auto 79.8 % (45.5-73.1); Platelet Count Result 102 k/mm3 (150-375); Red Blood Count 5.56 M/mm3 (4.6-6.20); Red Cell Distribution Width 14.2 % (11.5-14.5); White Blood Count 5.6 K/mm3 (4.5-10.0)
[2023-03-31 11:47] LABS: INR 1.7; Prothrombin Time 21.4 Seconds (11.1-14.7)
[2023-03-31 11:51] LABS: Alanine Aminotransferase 30 U/L (6-50); Albumin Level 4.2 g/dL (3.5-5.1); Alkaline Phosphatase 100 U/L (38-126); Anion Gap 13 mmol/L (8-16); Aspartate Amino Transferase 38 U/L (17-59); Bilirubin,Total 0.9 mg/dL (0.2-1.3); Blood Urea Nitrogen 15 mg/dL (9-20); Carbon Dioxide 23 mmol/L (22-30); Chloride 101 mmol/L (98-107); Estimated Glomerular Filt Rate > 60; Glucose 263 mg/dL (65-110); Potassium 4.3 mmol/L (3.4-5.0); Sodium 137 mmol/L (137-145)
[2023-03-31 12:03] LABS: Lactate Dehydrogenase 456 U/L (120-246)
== END 2023-04-06 23:59 | disposition home or self-care (01) ==
LOC: ANHLAB 11:07
PROVIDERS: Visit Provider Internal Medicine
DX: I50.22 Chronic systolic (congestive) heart failure (principal); K92.1 Melena; I25.5 Ischemic cardiomyopathy; I25.10 Atherosclerotic heart disease of native coronary artery without angina pectoris; Z95.811 Presence of heart assist device
CPT/HCPCS: 36415; 80053; 83615; 85025; 85055; 85610

== ENCOUNTER 2023-06-30 11:30 | Outpatient (RCR) | payer MEDICARE, SELFPAY ==
[2023-04-14 13:43] LABS: Basophils Absolute Auto 0.1 K/mm3 (0.0-0.1); Basophils Percent Auto 0.9 % (0.2-1.2); Eosinophils Percent Auto 0.7 % (0-4.4); Hematocrit 50.6 % (42.0-52.0); Hemoglobin 16.4 g/dL (14.0-18.0); Immature Granulocyte Absolute 0.02 K/mm3 (0.00-0.031); Immature Granulocyte Percent A 0.4 % (0-0.5); Immature Platelet Fraction Pct 7.8 % (0.9-11.2); Lymphocytes Absolute Auto 0.64 K/mm3 (0.9-3.2); Lymphocytes Percent Auto 11.7 % (18.3-44.2); Mean Corpuscular HGB Conc 32.4 g/dl (32-36); Mean Corpuscular Hemoglobin 30.4 pg (26-34); Mean Corpuscular Volume 93.9 fl (80-100); Mean Platelet Volume 11.1 fl (7.4-10.4); Monocytes Absolute Auto 0.4 K/mm3 (0.1-0.6); Monocytes Percent Auto 6.6 % (2.6-8.5); Neutrophils Absolute Auto 4.3 K/mm3 (1.3-6.7); Neutrophils Percent Auto 79.7 % (45.5-73.1); Platelet Count Result 55 k/mm3 (150-375); Red Blood Count 5.39 M/mm3 (4.6-6.20); Red Cell Distribution Width 14.5 % (11.5-14.5); White Blood Count 5.5 K/mm3 (4.5-10.0)
[2023-04-14 13:57] LABS: INR 1.8; Prothrombin Time 22.1 Seconds (11.1-14.7)
[2023-04-14 14:10] LABS: Alanine Aminotransferase 29 U/L (6-50); Albumin Level 4.5 g/dL (3.5-5.1); Alkaline Phosphatase 85 U/L (38-126); Anion Gap 12 mmol/L (8-16); Aspartate Amino Transferase 38 U/L (17-59); Bilirubin,Total 0.9 mg/dL (0.2-1.3); Blood Urea Nitrogen 16 mg/dL (9-20); Calcium 9.4 mg/dL (8.4-10.2); Carbon Dioxide 26 mmol/L (22-30); Chloride 101 mmol/L (98-107); Estimated Glomerular Filt Rate > 60; Glucose 135 mg/dL (65-110); Lactate Dehydrogenase 463 U/L (120-246); Potassium 3.9 mmol/L (3.4-5.0); Sodium 139 mmol/L (137-145)
[2023-04-21 11:59] LABS: Basophils Absolute Auto 0.1 K/mm3 (0.0-0.1); Basophils Percent Auto 0.8 % (0.2-1.2); Eosinophils Absolute Auto 0.1 K/mm3 (0-0.3); Eosinophils Percent Auto 0.9 % (0-4.4); Hematocrit 51.7 % (42.0-52.0); Hemoglobin 16.8 g/dL (14.0-18.0); Immature Granulocyte Absolute 0.02 K/mm3 (0.00-0.031); Immature Granulocyte Percent A 0.3 % (0-0.5); Immature Platelet Fraction Pct 8.6 % (0.9-11.2); Lymphocytes Absolute Auto 0.62 K/mm3 (0.9-3.2); Lymphocytes Percent Auto 9.5 % (18.3-44.2); Mean Corpuscular HGB Conc 32.5 g/dl (32-36); Mean Corpuscular Hemoglobin 30.2 pg (26-34); Mean Corpuscular Volume 92.8 fl (80-100); Mean Platelet Volume 10.8 fl (7.4-10.4); Monocytes Absolute Auto 0.4 K/mm3 (0.1-0.6); Monocytes Percent Auto 6.1 % (2.6-8.5); Neutrophils Absolute Auto 5.4 K/mm3 (1.3-6.7); Neutrophils Percent Auto 82.4 % (45.5-73.1); Platelet Count Result 49 k/mm3 (150-375); Red Blood Count 5.57 M/mm3 (4.6-6.20); Red Cell Distribution Width 14.6 % (11.5-14.5); White Blood Count 6.5 K/mm3 (4.5-10.0)
[2023-04-21 12:10] LABS: Alanine Aminotransferase 27 U/L (6-50); Albumin Level 4.3 g/dL (3.5-5.1); Alkaline Phosphatase 87 U/L (38-126); Anion Gap 12 mmol/L (8-16); Aspartate Amino Transferase 32 U/L (17-59); Bilirubin,Total 0.8 mg/dL (0.2-1.3); Blood Urea Nitrogen 19 mg/dL (9-20); Calcium 9.4 mg/dL (8.4-10.2); Carbon Dioxide 26 mmol/L (22-30); Chloride 99 mmol/L (98-107); Estimated Glomerular Filt Rate > 60; Glucose 211 mg/dL (65-110); Lactate Dehydrogenase 437 U/L (120-246); Potassium 4.2 mmol/L (3.4-5.0); Sodium 137 mmol/L (137-145)
[2023-04-21 12:11] LABS: Prothrombin Time 23.6 Seconds (11.1-14.7)
[2023-05-26 11:44] LABS: Basophils Absolute Auto 0.1 K/mm3 (0.0-0.1); Basophils Percent Auto 0.7 % (0.2-1.2); Eosinophils Percent Auto 0.2 % (0-4.4); Hematocrit 45.8 % (42.0-52.0); Hemoglobin 15.2 g/dL (14.0-18.0); Immature Granulocyte Absolute 0.02 K/mm3 (0.00-0.031); Immature Granulocyte Percent A 0.2 % (0-0.5); Lymphocytes Absolute Auto 0.57 K/mm3 (0.9-3.2); Lymphocytes Percent Auto 6.9 % (18.3-44.2); Mean Corpuscular HGB Conc 33.2 g/dl (32-36); Mean Corpuscular Hemoglobin 30.6 pg (26-34); Mean Corpuscular Volume 92.2 fl (80-100); Monocytes Absolute Auto 0.4 K/mm3 (0.1-0.6); Monocytes Percent Auto 4.9 % (2.6-8.5); Neutrophils Absolute Auto 7.1 K/mm3 (1.3-6.7); Neutrophils Percent Auto 87.1 % (45.5-73.1); Platelet Count Result 155 k/mm3 (150-375); Red Blood Count 4.97 M/mm3 (4.6-6.20); Red Cell Distribution Width 15.1 % (11.5-14.5); White Blood Count 8.2 K/mm3 (4.5-10.0)
[2023-05-26 11:55] LABS: Alanine Aminotransferase 60 U/L (6-50); Alkaline Phosphatase 90 U/L (38-126); Anion Gap 11 mmol/L (8-16); Aspartate Amino Transferase 53 U/L (17-59); Bilirubin,Total 0.9 mg/dL (0.2-1.3); Blood Urea Nitrogen 18 mg/dL (9-20); Calcium 9.1 mg/dL (8.4-10.2); Carbon Dioxide 26 mmol/L (22-30); Chloride 99 mmol/L (98-107); Estimated Glomerular Filt Rate > 60; Glucose 231 mg/dL (65-110); INR 1.4; Lactate Dehydrogenase 472 U/L (120-246); Potassium 4.3 mmol/L (3.4-5.0); Prothrombin Time 18.5 Seconds (11.1-14.7); Sodium 136 mmol/L (137-145)
[2023-06-16 12:14] LABS: Basophils Absolute Auto 0.1 K/mm3 (0.0-0.1); Basophils Percent Auto 0.7 % (0.2-1.2); Eosinophils Percent Auto 0.5 % (0-4.4); Hematocrit 45.4 % (42.0-52.0); Hemoglobin 14.7 g/dL (14.0-18.0); Immature Granulocyte Absolute 0.04 K/mm3 (0.00-0.031); Immature Granulocyte Percent A 0.5 % (0-0.5); Lymphocytes Absolute Auto 0.58 K/mm3 (0.9-3.2); Lymphocytes Percent Auto 7.2 % (18.3-44.2); Mean Corpuscular HGB Conc 32.4 g/dl (32-36); Mean Corpuscular Hemoglobin 30.1 pg (26-34); Mean Corpuscular Volume 92.8 fl (80-100); Mean Platelet Volume 10.6 fl (7.4-10.4); Monocytes Absolute Auto 0.4 K/mm3 (0.1-0.6); Neutrophils Absolute Auto 6.9 K/mm3 (1.3-6.7); Neutrophils Percent Auto 86.1 % (45.5-73.1); Platelet Count Result 180 k/mm3 (150-375); Red Blood Count 4.89 M/mm3 (4.6-6.20); Red Cell Distribution Width 15.7 % (11.5-14.5)
[2023-06-16 12:25] LABS: Alanine Aminotransferase 27 U/L (6-50); Albumin Level 3.8 g/dL (3.5-5.1); Alkaline Phosphatase 109 U/L (38-126); Anion Gap 9 mmol/L (8-16); Aspartate Amino Transferase 41 U/L (17-59); Bilirubin,Total 0.7 mg/dL (0.2-1.3); Blood Urea Nitrogen 21 mg/dL (9-20); Calcium 9.2 mg/dL (8.4-10.2); Carbon Dioxide 25 mmol/L (22-30); Chloride 101 mmol/L (98-107); Estimated Glomerular Filt Rate > 60; Glucose 354 mg/dL (65-110); Lactate Dehydrogenase 523 U/L (120-246); Potassium 4.9 mmol/L (3.4-5.0); Sodium 135 mmol/L (137-145)
[2023-06-16 12:29] LABS: INR 1.3; Prothrombin Time 17.3 Seconds (11.1-14.7)
[2023-06-30 12:17] LABS: Basophils Percent Auto 0.7 % (0.2-1.2); Eosinophils Absolute Auto 0.1 K/mm3 (0-0.3); Eosinophils Percent Auto 0.9 % (0-4.4); Hematocrit 45.8 % (42.0-52.0); Hemoglobin 14.7 g/dL (14.0-18.0); Immature Granulocyte Absolute 0.02 K/mm3 (0.00-0.031); Immature Granulocyte Percent A 0.3 % (0-0.5); Lymphocytes Absolute Auto 0.54 K/mm3 (0.9-3.2); Lymphocytes Percent Auto 9.2 % (18.3-44.2); Mean Corpuscular HGB Conc 32.1 g/dl (32-36); Mean Corpuscular Hemoglobin 30.1 pg (26-34); Mean Corpuscular Volume 93.7 fl (80-100); Mean Platelet Volume 10.6 fl (7.4-10.4); Monocytes Absolute Auto 0.3 K/mm3 (0.1-0.6); Monocytes Percent Auto 5.1 % (2.6-8.5); Neutrophils Absolute Auto 4.9 K/mm3 (1.3-6.7); Neutrophils Percent Auto 83.8 % (45.5-73.1); Platelet Count Result 142 k/mm3 (150-375); Red Blood Count 4.89 M/mm3 (4.6-6.20); Red Cell Distribution Width 15.9 % (11.5-14.5); White Blood Count 5.9 K/mm3 (4.5-10.0)
[2023-06-30 12:28] LABS: INR 1.6; Prothrombin Time 20.4 Seconds (11.1-14.7)
[2023-06-30 12:30] LABS: Alanine Aminotransferase 27 U/L (6-50); Albumin Level 4.2 g/dL (3.5-5.1); Alkaline Phosphatase 126 U/L (38-126); Anion Gap 9 mmol/L (8-16); Aspartate Amino Transferase 41 U/L (17-59); Bilirubin,Total 1.1 mg/dL (0.2-1.3); Blood Urea Nitrogen 20 mg/dL (9-20); Calcium 9.4 mg/dL (8.4-10.2); Carbon Dioxide 23 mmol/L (22-30); Chloride 102 mmol/L (98-107); Estimated Glomerular Filt Rate > 60; Glucose 319 mg/dL (65-110); Lactate Dehydrogenase 525 U/L (120-246); Potassium 4.3 mmol/L (3.4-5.0); Sodium 134 mmol/L (137-145)
== END 2023-07-13 23:59 | disposition home or self-care (01) ==
LOC: ANHLAB 11:30
PROVIDERS: Visit Provider Internal Medicine
DX: I50.22 Chronic systolic (congestive) heart failure (principal); I25.5 Ischemic cardiomyopathy; I25.10 Atherosclerotic heart disease of native coronary artery without angina pectoris; K92.1 Melena; Z95.811 Presence of heart assist device
CPT/HCPCS: 36415; 80053; 83615; 85025; 85055; 85610

== ENCOUNTER 2023-09-29 12:39 | Outpatient (RCR) | payer MEDICARE, SELFPAY ==
[2023-07-14 12:14] LABS: Hematocrit 46.1 % (42.0-52.0); Hemoglobin 15.6 g/dL (14.0-18.0); Mean Corpuscular HGB Conc 33.8 g/dl (32-36); Mean Corpuscular Hemoglobin 30.3 pg (26-34); Mean Corpuscular Volume 89.5 fl (80-100); Mean Platelet Volume 10.5 fl (7.4-10.4); Platelet Count Result 166 k/mm3 (150-375); Red Blood Count 5.15 M/mm3 (4.6-6.20); Red Cell Distribution Width 15.2 % (11.5-14.5); White Blood Count 5.8 K/mm3 (4.5-10.0)
[2023-07-14 12:44] LABS: Prothrombin Time 23.8 Seconds (11.1-14.7)
[2023-07-14 12:48] LABS: Alanine Aminotransferase 27 U/L (6-50); Albumin Level 4.4 g/dL (3.5-5.1); Alkaline Phosphatase 107 U/L (38-126); Anion Gap 7 mmol/L (8-16); Aspartate Amino Transferase 36 U/L (17-59); Bilirubin,Total 0.9 mg/dL (0.2-1.3); Blood Urea Nitrogen 22 mg/dL (9-20); Calcium 9.6 mg/dL (8.4-10.2); Carbon Dioxide 25 mmol/L (22-30); Chloride 100 mmol/L (98-107); Estimated Glomerular Filt Rate > 60; Glucose 441 mg/dL (65-110); Potassium 4.4 mmol/L (3.4-5.0); Sodium 132 mmol/L (137-145)
[2023-07-14 13:09] LABS: Lactate Dehydrogenase 531 U/L (120-246)
[2023-07-28 14:13] LABS: Hematocrit 52.7 % (42.0-52.0); Hemoglobin 16.8 g/dL (14.0-18.0); Mean Corpuscular HGB Conc 31.9 g/dl (32-36); Mean Corpuscular Volume 94.1 fl (80-100); Mean Platelet Volume 10.3 fl (7.4-10.4); Platelet Count Result 177 k/mm3 (150-375); Red Cell Distribution Width 15.6 % (11.5-14.5); White Blood Count 6.4 K/mm3 (4.5-10.0)
[2023-07-28 14:27] LABS: INR 1.6; Prothrombin Time 19.9 Seconds (11.1-14.7)
[2023-07-28 14:36] LABS: Alanine Aminotransferase 31 U/L (6-50); Albumin Level 4.8 g/dL (3.5-5.1); Alkaline Phosphatase 97 U/L (38-126); Anion Gap 9 mmol/L (8-16); Aspartate Amino Transferase 47 U/L (17-59); Bilirubin,Total 0.9 mg/dL (0.2-1.3); Blood Urea Nitrogen 15 mg/dL (9-20); Calcium 9.7 mg/dL (8.4-10.2); Carbon Dioxide 30 mmol/L (22-30); Chloride 99 mmol/L (98-107); Estimated Glomerular Filt Rate > 60; Glucose 130 mg/dL (65-110); Potassium 4.4 mmol/L (3.4-5.0); Sodium 138 mmol/L (137-145)
[2023-07-28 14:46] LABS: Lactate Dehydrogenase 567 U/L (120-246)
[2023-08-11 12:07] LABS: Hematocrit 47.6 % (42.0-52.0); Hemoglobin 15.6 g/dL (14.0-18.0); Mean Corpuscular HGB Conc 32.8 g/dl (32-36); Mean Corpuscular Hemoglobin 30.8 pg (26-34); Mean Corpuscular Volume 93.9 fl (80-100); Mean Platelet Volume 9.8 fl (7.4-10.4); Platelet Count Result 177 k/mm3 (150-375); Red Blood Count 5.07 M/mm3 (4.6-6.20); Red Cell Distribution Width 15.9 % (11.5-14.5); White Blood Count 5.7 K/mm3 (4.5-10.0)
[2023-08-11 12:17] LABS: Alanine Aminotransferase 24 U/L (6-50); Albumin Level 4.1 g/dL (3.5-5.1); Alkaline Phosphatase 88 U/L (38-126); Anion Gap 6 mmol/L (4-12); Aspartate Amino Transferase 33 U/L (17-59); Bilirubin,Total 0.6 mg/dL (0.2-1.3); Blood Urea Nitrogen 16 mg/dL (9-20); Calcium 9.3 mg/dL (8.4-10.2); Carbon Dioxide 27 mmol/L (22-30); Chloride 102 mmol/L (98-107); Estimated Glomerular Filt Rate > 60; Glucose 234 mg/dL (65-110); Lactate Dehydrogenase 450 U/L (120-246); Potassium 4.2 mmol/L (3.4-5.0); Sodium 135 mmol/L (137-145)
[2023-08-11 12:24] LABS: INR 2.3; Prothrombin Time 26.8 Seconds (11.1-14.7)
[2023-08-25 11:29] LABS: Hemoglobin 15.5 g/dL (14.0-18.0); Mean Corpuscular HGB Conc 32.3 g/dl (32-36); Mean Corpuscular Hemoglobin 30.8 pg (26-34); Mean Corpuscular Volume 95.2 fl (80-100); Mean Platelet Volume 10.1 fl (7.4-10.4); Platelet Count Result 189 k/mm3 (150-375); Red Blood Count 5.04 M/mm3 (4.6-6.20); Red Cell Distribution Width 15.8 % (11.5-14.5); White Blood Count 6.6 K/mm3 (4.5-10.0)
[2023-08-25 11:40] LABS: INR 3.1; Prothrombin Time 34.7 Seconds (11.1-14.7)
[2023-08-25 11:48] LABS: Alanine Aminotransferase 24 U/L (6-50); Albumin Level 4.5 g/dL (3.5-5.1); Alkaline Phosphatase 97 U/L (38-126); Anion Gap 9 mmol/L (4-12); Aspartate Amino Transferase 32 U/L (17-59); Bilirubin,Total 0.7 mg/dL (0.2-1.3); Blood Urea Nitrogen 17 mg/dL (9-20); Calcium 9.8 mg/dL (8.4-10.2); Carbon Dioxide 26 mmol/L (22-30); Chloride 102 mmol/L (98-107); Estimated Glomerular Filt Rate > 60; Glucose 239 mg/dL (65-110); Lactate Dehydrogenase 467 U/L (120-246); Potassium 4.1 mmol/L (3.4-5.0); Sodium 137 mmol/L (137-145)
[2023-09-01 11:37] LABS: Hematocrit 46.1 % (42.0-52.0); Mean Corpuscular HGB Conc 32.5 g/dl (32-36); Mean Corpuscular Hemoglobin 30.5 pg (26-34); Mean Corpuscular Volume 93.9 fl (80-100); Mean Platelet Volume 10.1 fl (7.4-10.4); Platelet Count Result 174 k/mm3 (150-375); Red Blood Count 4.91 M/mm3 (4.6-6.20); Red Cell Distribution Width 15.8 % (11.5-14.5); White Blood Count 6.6 K/mm3 (4.5-10.0)
[2023-09-01 11:47] LABS: Alanine Aminotransferase 23 U/L (6-50); Albumin Level 4.5 g/dL (3.5-5.1); Alkaline Phosphatase 95 U/L (38-126); Anion Gap 11 mmol/L (4-12); Aspartate Amino Transferase 30 U/L (17-59); Bilirubin,Total 0.7 mg/dL (0.2-1.3); Blood Urea Nitrogen 17 mg/dL (9-20); Calcium 9.6 mg/dL (8.4-10.2); Carbon Dioxide 25 mmol/L (22-30); Chloride 102 mmol/L (98-107); Estimated Glomerular Filt Rate > 60; Glucose 288 mg/dL (65-110); Lactate Dehydrogenase 480 U/L (120-246); Sodium 138 mmol/L (137-145)
[2023-09-01 11:49] LABS: Prothrombin Time 33.7 Seconds (11.1-14.7)
[2023-09-15 11:51] LABS: Hematocrit 45.8 % (42.0-52.0); Hemoglobin 15.1 g/dL (14.0-18.0); Mean Corpuscular Hemoglobin 30.6 pg (26-34); Mean Corpuscular Volume 92.7 fl (80-100); Mean Platelet Volume 10.6 fl (7.4-10.4); Platelet Count Result 162 k/mm3 (150-375); Red Blood Count 4.94 M/mm3 (4.6-6.20); Red Cell Distribution Width 15.3 % (11.5-14.5); White Blood Count 5.9 K/mm3 (4.5-10.0)
[2023-09-15 12:02] LABS: Alanine Aminotransferase 24 U/L (6-50); Albumin Level 4.5 g/dL (3.5-5.1); Alkaline Phosphatase 103 U/L (38-126); Anion Gap 10 mmol/L (4-12); Aspartate Amino Transferase 28 U/L (17-59); Bilirubin,Total 0.9 mg/dL (0.2-1.3); Blood Urea Nitrogen 16 mg/dL (9-20); Calcium 9.4 mg/dL (8.4-10.2); Carbon Dioxide 24 mmol/L (22-30); Chloride 104 mmol/L (98-107); Estimated Glomerular Filt Rate > 60; Glucose 204 mg/dL (65-110); INR 1.2; Lactate Dehydrogenase 458 U/L (120-246); Potassium 3.9 mmol/L (3.4-5.0); Prothrombin Time 15.4 Seconds (11.1-14.7); Sodium 138 mmol/L (137-145)
[2023-09-29 13:23] LABS: Hematocrit 49.5 % (42.0-52.0); Hemoglobin 15.6 g/dL (14.0-18.0); Mean Corpuscular HGB Conc 31.5 g/dl (32-36); Mean Corpuscular Hemoglobin 29.9 pg (26-34); Mean Platelet Volume 10.6 fl (7.4-10.4); Platelet Count Result 161 k/mm3 (150-375); Red Blood Count 5.21 M/mm3 (4.6-6.20); Red Cell Distribution Width 14.6 % (11.5-14.5); White Blood Count 6.5 K/mm3 (4.5-10.0)
[2023-09-29 13:29] LABS: Alanine Aminotransferase 28 U/L (6-50); Albumin Level 4.3 g/dL (3.5-5.1); Alkaline Phosphatase 97 U/L (38-126); Anion Gap 10 mmol/L (4-12); Aspartate Amino Transferase 32 U/L (17-59); Bilirubin,Total 0.7 mg/dL (0.2-1.3); Blood Urea Nitrogen 20 mg/dL (9-20); Calcium 9.7 mg/dL (8.4-10.2); Carbon Dioxide 25 mmol/L (22-30); Chloride 103 mmol/L (98-107); Estimated Glomerular Filt Rate > 60; Glucose 269 mg/dL (65-110); INR 1.8; Lactate Dehydrogenase 495 U/L (120-246); Potassium 4.3 mmol/L (3.4-5.0); Prothrombin Time 22.5 Seconds (11.1-14.7); Sodium 138 mmol/L (137-145)
== END 2023-10-12 23:59 | disposition home or self-care (01) ==
LOC: ANHLAB 12:39
DX: Z51.81 Encounter for therapeutic drug level monitoring (principal); Z79.01 Long term (current) use of anticoagulants; Z95.811 Presence of heart assist device
CPT/HCPCS: 36415; 80053; 83615; 85027; 85610

== ENCOUNTER 2023-11-24 11:30 | Outpatient (RCR) | payer MEDICARE, SELFPAY ==
[2023-10-13 11:27] LABS: Hematocrit 48.8 % (42.0-52.0); Hemoglobin 15.5 g/dL (14.0-18.0); Mean Corpuscular HGB Conc 31.8 g/dl (32-36); Mean Corpuscular Hemoglobin 29.8 pg (26-34); Mean Corpuscular Volume 93.7 fl (80-100); Mean Platelet Volume 10.7 fl (7.4-10.4); Platelet Count Result 159 k/mm3 (150-375); Red Blood Count 5.21 M/mm3 (4.6-6.20); Red Cell Distribution Width 14.3 % (11.5-14.5); White Blood Count 6.4 K/mm3 (4.5-10.0)
[2023-10-13 11:36] LABS: INR 1.5; Prothrombin Time 19.2 Seconds (11.1-14.7)
[2023-10-13 11:47] LABS: Alanine Aminotransferase 24 U/L (6-50); Albumin Level 4.3 g/dL (3.5-5.1); Alkaline Phosphatase 114 U/L (38-126); Anion Gap 8 mmol/L (4-12); Aspartate Amino Transferase 33 U/L (17-59); Bilirubin,Total 0.9 mg/dL (0.2-1.3); Blood Urea Nitrogen 17 mg/dL (9-20); Calcium 9.1 mg/dL (8.4-10.2); Carbon Dioxide 27 mmol/L (22-30); Chloride 100 mmol/L (98-107); Estimated Glomerular Filt Rate > 60; Glucose 395 mg/dL (65-110); Lactate Dehydrogenase 525 U/L (120-246); Potassium 4.5 mmol/L (3.4-5.0); Sodium 135 mmol/L (137-145)
[2023-10-27 11:55] LABS: Hematocrit 47.3 % (42.0-52.0); Hemoglobin 15.6 g/dL (14.0-18.0); Mean Corpuscular Hemoglobin 30.2 pg (26-34); Mean Corpuscular Volume 91.7 fl (80-100); Mean Platelet Volume 10.5 fl (7.4-10.4); Platelet Count Result 161 k/mm3 (150-375); Red Blood Count 5.16 M/mm3 (4.6-6.20); Red Cell Distribution Width 14.1 % (11.5-14.5); White Blood Count 6.9 K/mm3 (4.5-10.0)
[2023-10-27 12:09] LABS: INR 1.7; Prothrombin Time 19.9 Seconds (11.1-14.7)
[2023-10-27 12:18] LABS: Alanine Aminotransferase 24 U/L (6-50); Albumin Level 4.4 g/dL (3.5-5.1); Alkaline Phosphatase 114 U/L (38-126); Anion Gap 10 mmol/L (4-12); Aspartate Amino Transferase 31 U/L (17-59); Bilirubin,Total 0.8 mg/dL (0.2-1.3); Blood Urea Nitrogen 19 mg/dL (9-20); Calcium 9.3 mg/dL (8.4-10.2); Carbon Dioxide 27 mmol/L (22-30); Chloride 100 mmol/L (98-107); Estimated Glomerular Filt Rate > 60; Glucose 283 mg/dL (65-110); Lactate Dehydrogenase 497 U/L (120-246); Potassium 3.7 mmol/L (3.4-5.0); Sodium 137 mmol/L (137-145)
[2023-11-06 12:30] LABS: Hematocrit 49.7 % (42.0-52.0); Hemoglobin 16.2 g/dL (14.0-18.0); Mean Corpuscular HGB Conc 32.6 g/dl (32-36); Mean Corpuscular Hemoglobin 29.9 pg (26-34); Mean Corpuscular Volume 91.7 fl (80-100); Mean Platelet Volume 11.1 fl (7.4-10.4); Platelet Count Result 162 k/mm3 (150-375); Red Blood Count 5.42 M/mm3 (4.6-6.20); Red Cell Distribution Width 14.1 % (11.5-14.5); White Blood Count 7.4 K/mm3 (4.5-10.0)
[2023-11-06 12:40] LABS: INR 1.4; Prothrombin Time 17.8 Seconds (11.1-14.7)
[2023-11-06 12:43] LABS: Alanine Aminotransferase 29 U/L (6-50); Albumin Level 4.7 g/dL (3.5-5.1); Alkaline Phosphatase 120 U/L (38-126); Anion Gap 12 mmol/L (4-12); Aspartate Amino Transferase 45 U/L (17-59); Bilirubin,Total 1.1 mg/dL (0.2-1.3); Blood Urea Nitrogen 18 mg/dL (9-20); Calcium 9.3 mg/dL (8.4-10.2); Carbon Dioxide 26 mmol/L (22-30); Chloride 97 mmol/L (98-107); Estimated Glomerular Filt Rate > 60; Glucose 310 mg/dL (65-110); Lactate Dehydrogenase 574 U/L (120-246); Potassium 4.3 mmol/L (3.4-5.0); Sodium 135 mmol/L (137-145)
[2023-11-17 11:56] LABS: Hematocrit 46.9 % (42.0-52.0); Hemoglobin 15.7 g/dL (14.0-18.0); Mean Corpuscular HGB Conc 33.5 g/dl (32-36); Mean Corpuscular Hemoglobin 30.2 pg (26-34); Mean Corpuscular Volume 90.2 fl (80-100); Mean Platelet Volume 10.5 fl (7.4-10.4); Platelet Count Result 182 k/mm3 (150-375); Red Cell Distribution Width 14.5 % (11.5-14.5); White Blood Count 6.3 K/mm3 (4.5-10.0)
[2023-11-17 12:41] LABS: INR 1.7; Prothrombin Time 20.8 Seconds (11.1-14.7)
[2023-11-17 12:44] LABS: Alanine Aminotransferase 21 U/L (6-50); Albumin Level 4.3 g/dL (3.5-5.1); Alkaline Phosphatase 90 U/L (38-126); Anion Gap 11 mmol/L (4-12); Aspartate Amino Transferase 30 U/L (17-59); Bilirubin,Total 0.9 mg/dL (0.2-1.3); Blood Urea Nitrogen 16 mg/dL (9-20); Calcium 9.3 mg/dL (8.4-10.2); Carbon Dioxide 25 mmol/L (22-30); Chloride 101 mmol/L (98-107); Estimated Glomerular Filt Rate > 60; Glucose 240 mg/dL (65-110); Lactate Dehydrogenase 466 U/L (120-246); Potassium 4.1 mmol/L (3.4-5.0); Sodium 137 mmol/L (137-145)
[2023-11-24 12:23] LABS: Hematocrit 47.2 % (42.0-52.0); Mean Corpuscular HGB Conc 31.8 g/dl (32-36); Mean Corpuscular Hemoglobin 29.7 pg (26-34); Mean Corpuscular Volume 93.5 fl (80-100); Mean Platelet Volume 10.1 fl (7.4-10.4); Platelet Count Result 163 k/mm3 (150-375); Red Blood Count 5.05 M/mm3 (4.6-6.20); Red Cell Distribution Width 14.8 % (11.5-14.5); White Blood Count 6.4 K/mm3 (4.5-10.0)
[2023-11-24 12:31] LABS: INR 1.4; Prothrombin Time 17.5 Seconds (11.1-14.7)
[2023-11-24 12:36] LABS: Alanine Aminotransferase 20 U/L (6-50); Albumin Level 4.2 g/dL (3.5-5.1); Alkaline Phosphatase 85 U/L (38-126); Anion Gap 11 mmol/L (4-12); Aspartate Amino Transferase 29 U/L (17-59); Bilirubin,Total 0.8 mg/dL (0.2-1.3); Blood Urea Nitrogen 17 mg/dL (9-20); Calcium 9.1 mg/dL (8.4-10.2); Carbon Dioxide 24 mmol/L (22-30); Chloride 102 mmol/L (98-107); Estimated Glomerular Filt Rate > 60; Glucose 254 mg/dL (65-110); Lactate Dehydrogenase 437 U/L (120-246); Potassium 4.1 mmol/L (3.4-5.0); Sodium 137 mmol/L (137-145)
== END 2024-01-11 23:59 | disposition home or self-care (01) ==
LOC: ANHLAB 11:30
DX: Z51.81 Encounter for therapeutic drug level monitoring (principal); Z95.811 Presence of heart assist device; Z79.01 Long term (current) use of anticoagulants
CPT/HCPCS: 36415; 80053; 83615; 85027; 85610

== ENCOUNTER 2024-01-20 19:53 | Emergency (ER) | payer MEDICARE, SELFPAY ==
--- NOTE | ~2024-01-20 | CT_ITS ---
EXAMINATION: CT cervical spine wo con DATE: 01/20/2024 20:55 INDICATION: Head injury. Neck pain. TECHNIQUE: Computed tomography (CT) of the cervical spine was performed without intravenous contrast. Automated exposure control and iterative reconstruction technique were employed. The dose-length pro duct was 453.33 mGy-cm. COMPARISON: CT cervical spine 07/04/2013 FINDINGS: Alignment is normal. Vertebral body heights are normal. There is severely decreased disc he ight from C3-C4 through C6-C7 and mildly decreased disc height at C7-T1. There is interbody fusion at C4-C5. The following disc levels are specifically discussed: C2-C3: There is mild bilateral uncovertebral joint osteoarthritis. There is mild bilateral facet join t osteoarthritis. There is no neural foraminal stenosis. There is no central canal stenosis. C3-C4: There is severe bilateral uncovertebral joint osteoarthritis. There is severe bilateral facet joint osteoarthritis. There is mild bilateral neural foraminal stenosis. There is mild central canal stenosis. C4-C5: There is severe bilateral uncovertebral joint hypertrophy. There is moderate bilateral facet j oint osteoarthritis. There is mild lateral neural foraminal stenosis. There is mild central canal letty nosis. C5-C6: There is severe bilateral uncovertebral joint osteoarthritis. There is moderate bilateral face t joint osteoarthritis. There is moderate bilateral neural foraminal stenosis. There is moderate cent ral canal stenosis. C6-C7: There is severe bilateral uncovertebral joint osteoarthritis. There is mild bilateral facet silviano int osteoarthritis. There is mild bilateral neural foraminal stenosis. There is mild central canal st enosis. C7-T1: There is no uncovertebral joint osteoarthritis. There is severe bilateral facet joint osteoart hritis. There is mild left neural foraminal stenosis. There is mild central canal stenosis. IMPRESSION: 1. No fracture. 2. Severe cervical spondylosis. Reviewed, dictated and finalized at location A.
--- NOTE | ~2024-01-20 | CT_ITS ---
EXAMINATION: CT brain wo con DATE: 01/20/2024 20:54 INDICATION: Head injury. Neck pain. TECHNIQUE: Computed tomography (CT) of the head was performed without intravenous contrast. The mA wa s adjusted according to patient size. Iterative reconstruction technique was employed. The dose-lengt h product was 681.00 mGy-cm. COMPARISON: Head CT 07/04/2013 FINDINGS: There are old infarcts in the cerebellum bilaterally. There are old infarcts in the left fr ontal, parietal, and occipital lobes. There is no intracranial hemorrhage, acute infarction, or abnor mal intracranial mass lesion. There are scattered areas of low attenuation in the cerebral white adriana er. The ventricles are normal in size. There are likely changes of ocular lens replacement surgeries. There is mild mucosal thickening in the paranasal sinuses. The mastoid air cells are normal. IMPRESSION: 1. 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 2. Extensive nonspecific cerebral white matter disease, which likely represents chronic small vessel ischemic disease. Reviewed, dictated and finalized at location A. IMPRESSION: 1. 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 2. Extensive nonspecific cerebral white matter disease, which likely represents chronic small vessel ischemic disease.
[2024-01-20 19:57] VITALS: BP 116/84; PULSE 80; RESP 16; TEMP 36.4; O2SAT 100
--- NOTE | 2024-01-20 22:37 | PC.NURSE ---
Family came to desk to report that pt's LVAD batteries were dying and their back up was also . Dr Ramesh notified of CT results back and states that he will come see the patient in the waiting room.
--- NOTE | 2024-01-20 22:47 | ED.GENADULT ---
HPI - General Adult General Chief complaint: Fall Stated complaint: glf - hit head on bed frame @ 1730, +thinners Time Seen by Provider: 01/20/24 22:46 History of Present Illness HPI narrative: This is an 83-year-old male with history of an LVAD presenting after ground level fall. Patient was getting out of the shower and tripped over his shorts falling down and striking his head. No loss of consciousness. He is on warfarin. No prodrome was purely mechanical fall. Patient has no complaints at this time. Patient has an LVAD device and the battery is running low. Related Data Home Medications Medication Instructions Recorded Confirmed acetaminophen 325 mg tablet 325 mg PO Q6H PRN 07/26/19 atorvastatin 80 mg tablet 80 mg PO DAILY 07/26/19 brimonidine 0.2 % eye drops 1 drop ophthalmic (eye) Q8H 07/26/19 docusate sodium 100 mg tablet 100 mg PO DAILY 07/26/19 furosemide 40 mg tablet 40 mg PO QAM 07/26/19 insulin glargine U-300 conc 300 80 unit subcut DAILY 07/26/19 unit/mL (3 mL) subcutaneous pen (Toujeo Max U-300 SoloStar) insulin lispro 100 unit/mL 10 unit subcut DAILY 07/26/19 subcutaneous pen (Humalog KwikPen (U-100) Insulin) levothyroxine 88 mcg tablet 88 mcg PO DAILY 07/26/19 (Levoxyl) lorazepam 0.5 mg tablet 0.5 mg PO DAILY PRN 07/26/19 lorazepam 1 mg tablet 1 mg PO DAILY PRN 07/26/19 losartan 100 mg tablet 100 mg PO DAILY 07/26/19 magnesium oxide 400 mg (241.3 mg 400 mg PO DAILY 07/26/19 magnesium) tablet metformin 1,000 mg tablet 1,000 mg PO BID 07/26/19 metoprolol succinate 100 mg 100 mg PO DAILY 07/26/19 tablet,extended release 24 hr mirtazapine 15 mg tablet 15 mg PO DAILY 07/26/19 omeprazole 40 mg capsule,delayed 40 mg PO BID 07/26/19 release pen needle, diabetic 31 gauge x #30 ea 07/26/19 3/16 (Pen Needle) potassium chloride 20 mEq 20 meq PO BID 07/26/19 tablet,extended release(part/cryst) (Klor-Con M) ropinirole 1 mg tablet 1 mg PO ONCE 07/26/19 warfarin 2 mg tablet 2 mg PO DAILY 07/26/19 warfarin 3 mg tablet 3 mg PO DAILY 07/26/19 Allergies Allergy/AdvReac Type Severity Reaction Status Date / Time lisinopril Allergy Unknown Unknown Verified 01/20/24 22:03 No Known Allergies Allergy Unverified 01/26/14 13:31 fluoxetine [From Prozac] AdvReac Anxiety Verified 01/20/24 22:03 [facility] Past Medical History Medical History Essential hypertension Hypothyroidism (acquired) 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 Head: atraumatic. EYES: EOMI, NOSE: Atraumatic NECK: Trachea midline RESPIRATORY: No increased rate of breathing CARDIOVASCULAR: RRR, ABDOMINAL: Non-distended MUSCULOSKELETAl: No obvious deformities NEURO: Alert. Cranial nerves 2-12 grossly intact. Sensation light touch, motor function cerebellar function intact for 4 extremities. Gait exam was normal. SKIN:: Warm, dry. Normal color PSYCHIATRIC: Normal affect Course Vital Signs Vital signs: Vital Signs Temperature 97.5 F L 01/20/24 19:57 Pulse Rate 80 01/20/24 19:57 Respiratory Rate 16 01/20/24 19:57 Blood Pressure 116/84 01/20/24 19:57 Pulse Oximetry 100 01/20/24 19:57 Oxygen Delivery Room Air 01/20/24 19:57 Temperature 97.5 F L 01/20/24 19:
== END 2024-01-20 22:51 | disposition home or self-care (01) ==
LOC: ANHED 22:52
PROVIDERS: Emergency Provider Emergency Medicine
DX: S09.90XA Unspecified injury of head, initial encounter (principal); W18.2XXA Fall in (into) shower or empty bathtub, initial encounter; I10 Essential (primary) hypertension; E03.9 Hypothyroidism, unspecified; E11.9 Type 2 diabetes mellitus without complications; Z79.4 Long term (current) use of insulin
CPT/HCPCS: 70450; 72125; 99284

== ENCOUNTER 2024-10-31 16:53 | Emergency (ER) | payer MEDICARE, SELFPAY ==
[2024-10-31 16:49] VITALS: BP 123/92; PULSE 63; RESP 15; TEMP 37; O2SAT 98
[2024-10-31 17:00] LABS: Glucose Point of Care 271 mg/dl (65-105)
--- NOTE | 2024-10-31 17:29 | ED.RECABL ---
HPI - Recheck/Abnormal Lab/Rx General Chief Complaint: Recheck/Abnormal Lab/Rx Stated Complaint: hyperglycemia Time Seen by Provider: 10/31/24 17:14 Source: patient Mode of arrival: EMS Limitations: no limitations History of Present Illness HPI narrative: This is a 83 year old male that presents to the ER for elevated blood sugars. Ongoing over the last couple of days. He does admit that he does not think he has been eating very well the last couple of days. He has no complaints. Sent by his facility for further evaluation. Related Data Home Medications ?Medication ?Instructions ?Recorded ?Confirmed ?Last Taken ?Type acetaminophen 325 mg tablet 325 mg PO Q6H PRN 07/26/19 Unknown History atorvastatin 80 mg tablet 80 mg PO DAILY 07/26/19 Unknown History brimonidine 0.2 % eye drops 1 drop ophthalmic (eye) Q8H 07/26/19 Unknown History docusate sodium 100 mg tablet 100 mg PO DAILY 07/26/19 Unknown History furosemide 40 mg tablet 40 mg PO QAM 07/26/19 Unknown History insulin glargine U-300 conc 300 80 unit subcut DAILY 07/26/19 Unknown History unit/mL (3 mL) subcutaneous pen (Toujeo Max U-300 SoloStar) insulin lispro 100 unit/mL 10 unit subcut DAILY 07/26/19 Unknown History subcutaneous pen (Humalog KwikPen (U-100) Insulin) levothyroxine 88 mcg tablet 88 mcg PO DAILY 07/26/19 Unknown History (Levoxyl) lorazepam 0.5 mg tablet 0.5 mg PO DAILY PRN 07/26/19 Unknown History lorazepam 1 mg tablet 1 mg PO DAILY PRN 07/26/19 Unknown History losartan 100 mg tablet 100 mg PO DAILY 07/26/19 Unknown History magnesium oxide 400 mg (241.3 mg 400 mg PO DAILY 07/26/19 Unknown History magnesium) tablet metformin 1,000 mg tablet 1,000 mg PO BID 07/26/19 Unknown History metoprolol succinate 100 mg 100 mg PO DAILY 07/26/19 Unknown History tablet,extended release 24 hr mirtazapine 15 mg tablet 15 mg PO DAILY 07/26/19 Unknown History omeprazole 40 mg capsule,delayed 40 mg PO BID 07/26/19 Unknown History release pen needle, diabetic 31 gauge x #30 ea 07/26/19 Unknown History 07/31 (Pen Needle) potassium chloride 20 mEq 20 meq PO BID 07/26/19 Unknown History tablet,extended release(part/cryst) (Klor-Con M) ropinirole 1 mg tablet 1 mg PO ONCE 07/26/19 Unknown History warfarin 2 mg tablet 2 mg PO DAILY 07/26/19 Unknown History warfarin 3 mg tablet 3 mg PO DAILY 07/26/19 Unknown History Allergies Allergy/AdvReac Type Severity Reaction Status Date / Time lisinopril Allergy Unknown Unknown Verified 10/31/24 16:59 fluoxetine (From Prozac) AdvReac Anxiety Verified 10/31/24 16:59 Review of Systems Review of Systems: CONSTITUTIONAL: Denies fever CARDIOVASCULAR: Denies chest pain RESPIRATORY: Denies dyspnea. 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 HEAD: Normocephalic, atraumatic. EYES: EOMI. ENT: Nares clear, no rhinorrhea or epistaxis. Mucous membranes moist. Oropharynx without tonsillar hypertrophy exudate or other lesions. CHEST: Clear to auscultation. No respiratory distress. No wheezes rales or rhonchi HEART: LVAD ABDOMEN: Soft, nontender, nondistended, normal active bowel sounds. EXTREMITIES: Normal range of motion. No edema. SKIN: Warm, dry, no rash. NEURO: No focal deficits. Alert and oriented x3. PSYCH: Normal mood and affect Course Course Emergency Course: patient updated on his workup and agrees with plan of care Vital Signs Vital signs: Vital Signs Temperature 98.6 F 10/31/24 16:49 Pulse Rate 63 10/31/24 16:49 Respiratory Rate 15 10/31/24 16:49 Blood Pressure 123/92 H 10/31/24 16:49 Pulse Oximetry 98 10/31/24 16:49 Oxygen Delivery Room Air 10/31/24 16:49 Temperature 98.6 F 10/31/24 16:49 Pulse Rate 84 10/31/24 18:56 Respiratory Rate 20 10/31/24 18:56 Blood Pressure 108/82 10/31/24 18:56 Pulse Oximetry 100 10/31/24 18:56 Oxygen Delivery Room Air 10/31/24 16:49 MDM - Recheck/Abnormal Lab/Rx MDM Narrative Medical decision making narrative: Patient presents to the emergency department for elevated blood sugars. Ongoing over the last couple of days. No other associated symptoms. Patient is afebrile and nontoxic appearing. His vitals are stable. Cbc without leukocytosis. Does show normocytic anemia hemoglobin 11.2. Patient denies any current bleeding. Metabolic panel with elevated blood glucose in the 270s, no anion gap, bicarb is normal. Urine without evidence of infection. No ketones. Beta hydroxybutyrate is not elevated. patient updated on his workup and agrees with plan of care. Instructed to have close follow-up with his front office agent and primary provider. He was given warnings to return to the ER Differential Diagnosis Differential diagnosis: Likely other (hyperglycemia, DKA, electrolyte derangement) Lab Data Attestation: I reviewed the patient's lab results. 10/31/24 17:42 10/31/24 17:42 Labs: Lab Results 10/31/24 10/31/24 10/31/24 Range/Units 16:58 17:42 18:26 WBC 7.1 (4.5-10.0) K/mm3 RBC 3.90 L (4.6-6.20) M/mm3 Hgb 11.2 L D (14.0-18.0) g/dL Hct 35.5 L (42.0-52.0) % MCV 91.0 (80-100) fl MCH 28.7 (26-34) pg MCHC 31.5 L (32-36) g/dl RDW 16.8 H (11.5-14.5) % Plt Count 232 (150-375) k/mm3 MPV 10.2 (7.4-10.4) fl Immature Gran % (Auto) 0.6 H (0-0.5) % Neut % (Auto) 80.4 H (45.5-73.1) % Lymph % (Auto) 10.5 L (18.3-44.2) % [place] % (Auto) 6.2 (2.6-8.5) % Eos % (Auto) 1.6 (0-4.4) % Baso % (Auto) 0.7 (0.2-1.2) % Lymph # (Auto) 0.74 L (0.9-3.2) K/mm3 [place] # (Auto) 0.4 (0.1-0.6) K/mm3 Eos # (Auto) 0.1 (0-0.3) K/mm3 Baso # (Auto) 0.1 (0.0-0.1) K/mm3 Abs Immat Gran (auto) 0.04 H (0.00-0.031) K/mm3 Absolute Neuts (auto) 5.7 (1.3-6.7) K/mm3 Absolute Nucleated RBC 0.000 (0.0-0.012) K/mm3 Nucleated RBC % 0.0 (0.0-0.2) % Sodium 134 L (137-145) mmol/L Potassium 4.0 (3.4-5.0) mmol/L Chloride 102 (98-107) mmol/L Carbon Dioxide 25 (22-30) mmol/L Anion Gap 7 (4-12) mmol/L BUN 17 (9-20) mg/dL Creatinine 0.68 L (0.7-1.3) mg/dL Estim Creat Clear Calc 76 ml/min Estimated GFR > 60 (59 - ) Glucose 274 H (65-110) mg/dL POC Capillary Glucose 271 H (65-105) mg/dl Calcium 9.0 (8.4-10.2) mg/dL Phosphorus 2.8 (2.5-4.5) mg/dL Magnesium 1.8 (1.6-2.3) mg/dL Total Bilirubin 0.3 (0.2-1.3) mg/dL AST 26 (17-59) U/L ALT 18 (6-50) U/L Alkaline Phosphatase 101 (38-126) U/L Total Protein 6.6 (6.3-8.2) g/dL Albumin 3.5 (3.5-5.1) g/dL Beta-Hydroxybutyrate/Acetoacetate 0.20 (0.02-0.27) mmol/L Urine Color Yellow (Yellow) Urine Appearance Clear (Clear) Urine pH 6.0 (5.0-9.0) Ur Specific [place] 1.028 (1.001-1.035) Urine Protein 2+ H (Negative) mg/dL Urine Glucose (UA) 3+ H (Negative) mg/dL Urine Ketones Negative (Negative) mg/dL Ur Blood (Man) Negative (Negative) Urine Nitrate Negative (Negative) Urine Bilirubin Negative (Negative) Urine Urobilinogen 0.2 (<2.0) mg/dL Leukocyte Esterase Rfl Negative (Negative) EDWIN/UL Critical Care Time Critical Care Time Critical Care Time: No Discharge Plan Discharge Clinical Impression: Hyperglycemia, Anemia Patient Disposition: [facility] Living Condition: Stable Instructions: Anemia (ED), Type 2 Diabetes Management for Adults (ED) Additional Instructions: Return to the emergency department if you experience fever, chest pain, shortness of breath, abdominal pain with nausea and vomiting, weakness, numbness, or any other symptoms that are concerning to you. Your blood work and urine are largely re-assuring. Your hemoglobin was a little bit low today (11.2.) Follow up with your front office agent and primary care doctor for further management Patient Language: [place] Prescriptions: No Action tramadol 50 mg tablet 50 mg PO Q6H PRN (Reason: pain) Qty: 10 0RF acetaminophen 325 mg tablet 325 mg PO Q6H PRN atorvastatin 80 mg tablet 80 mg PO DAILY brimonidine 0.2 % drops 1 drop EACH EYE Q8H docusate sodium 100 mg tablet 100 mg PO DAILY furosemide 40 mg tablet 40 mg PO QAM insulin lispro [Humalog KwikPen Insulin] 100 unit/mL insulin pen 10 unit SUB-Q DAILY potassium chloride [Klor-Con M20] 20 mEq tablet,ER particles/crystals 20 meq PO BID levothyroxine [Levoxyl] 88 mcg tablet 88 mcg PO DAILY lorazepam 0.5 mg tablet 0.5 mg PO DAILY PRN lorazepam 1 mg tablet 1 mg PO DAILY PRN losartan 100 mg tablet 100 mg PO DAILY magnesium oxide 400 mg (241.3 mg magnesium) tablet 400 mg PO DAILY metformin 1,000 mg tablet 1,000 mg PO BID metoprolol succinate 100 mg tablet extended release 24 hr 100 mg PO DAILY mirtazapine 15 mg tablet 15 mg PO DAILY omeprazole 40 mg capsule,delayed release(DR/EC) 40 mg PO BID (DME) pen needle, diabetic [Pen Needle] 31 gauge x 3/16 needle See Rx Instructions .ROUTE .MEDSUPPLY Qty: 30 Rx Instructions: As directed ropinirole 1 mg tablet 1 mg PO ONCE Toujeo Max U-300 SoloStar 300 unit/mL (3 mL) insulin pen 80 unit SUB-Q DAILY warfarin 2 mg tablet 2 mg PO DAILY warfarin 3 mg tablet 3 mg PO DAILY Follow-up/Referrals: PHYSICIAN,DIRECTOR CALL CENTER SALES [Primary Care Provider] - Stand Alone Forms: Group Home Discharge
[2024-10-31 17:40] VITALS: BP 108/85; PULSE 73; RESP 13; O2SAT 100
[2024-10-31 17:54] LABS: Basophils Absolute Auto 0.1 K/mm3 (0.0-0.1); Basophils Percent Auto 0.7 % (0.2-1.2); Eosinophils Absolute Auto 0.1 K/mm3 (0-0.3); Eosinophils Percent Auto 1.6 % (0-4.4); Hematocrit 35.5 % (42.0-52.0); Hemoglobin 11.2 g/dL (14.0-18.0); Immature Granulocyte Absolute 0.04 K/mm3 (0.00-0.031); Immature Granulocyte Percent A 0.6 % (0-0.5); Lymphocytes Absolute Auto 0.74 K/mm3 (0.9-3.2); Lymphocytes Percent Auto 10.5 % (18.3-44.2); Mean Corpuscular HGB Conc 31.5 g/dl (32-36); Mean Corpuscular Hemoglobin 28.7 pg (26-34); Mean Platelet Volume 10.2 fl (7.4-10.4); Monocytes Absolute Auto 0.4 K/mm3 (0.1-0.6); Monocytes Percent Auto 6.2 % (2.6-8.5); Neutrophils Absolute Auto 5.7 K/mm3 (1.3-6.7); Neutrophils Percent Auto 80.4 % (45.5-73.1); Platelet Count Result 232 k/mm3 (150-375); Red Cell Distribution Width 16.8 % (11.5-14.5); White Blood Count 7.1 K/mm3 (4.5-10.0)
[2024-10-31 18:10] LABS: Alanine Aminotransferase 18 U/L (6-50); Albumin Level 3.5 g/dL (3.5-5.1); Alkaline Phosphatase 101 U/L (38-126); Anion Gap 7 mmol/L (4-12); Aspartate Amino Transferase 26 U/L (17-59); Bilirubin,Total 0.3 mg/dL (0.2-1.3); Blood Urea Nitrogen 17 mg/dL (9-20); Carbon Dioxide 25 mmol/L (22-30); Chloride 102 mmol/L (98-107); Estimated CRCL calculation 76 ml/min; Estimated Glomerular Filt Rate > 60; Glucose 274 mg/dL (65-110); Magnesium 1.8 mg/dL (1.6-2.3); Phosphorus 2.8 mg/dL (2.5-4.5); Sodium 134 mmol/L (137-145); Total Protein 6.6 g/dL (6.3-8.2)
--- OUTSIDE RECORDS SUMMARY | 2024-10-31 18:15 | XMS_ITS | Encounter Summary ---
Author Organization [facility] Healthcare Address [address] [place] [address] Care Team Providers Care Pedigree Tracer Name Role Phone Darlin Diaz RN Unavailable [phone] Papo Remy MD Primary Care Provider [phone] Miscellaneous, Not In File Primary Care Provider Unavailable Derek Remy MD Primary Care Provider No, Physician Primary Care Provider [phone] Thompson Napoles MD Primary Care Provider + Aicha Walker Unavailable Unavailable Encounter Details Date Type Department Care Team (Late st Contact Info) Description 10/22/2021 Telephone [facility] Transplant Heart [address] [facility] [place] [address] [phone] [place], [place] [id number] Rita Parmar Social History Tobacco Use Types Packs/Day Years Used Date Smoking Tobacco: Never Smokeless Tobacco: Never Alcohol Use Standard Drinks/Week Comments No 0 (1 standard drink = 0.6 oz pur e alcohol) AUDIT-C Answer Date Recorded Q1: How often do you have a drink containing alc ohol? Never 12/06/2020 Average Number of Drinks Not on file 07/22/2 021 Q3: How often do you have si x or more drinks on one occasion? 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 HAND Gender Identity Not on file Sexual Orientation Not on file documented as of this encounter Plan of Treatment Not on file documented as of this encounter Visit Diagnoses Not on filedocumented in this encounter Additional Health Concerns Infection Onset Date Last Indicated Resolved Time COVID: Suspected 05/20/2022 05/20/2022 05/20/2022 12:54 PM TRUCKER HAND MRSA Comment:MRSA [facility] 07/20/24 05/25/2024 05/25/2024 07/20/2024 6:[address] COVID: Suspected 08/02/2024 08/02/2024 08/02/2024 7:27 PM CDT documented as of this encounter Care Teams Pedigree Tracer Relationship Specialty Start Date End Date Papo Remy MD [address] [place] [address] PCP - General 07/05/18 05/13/22 Miscellaneous, Not In File PCP - General 05/14/22 06/25/22 Derek Remy MD PCP - General Internal Medicine 06/26/22 09/09/23 No, Physician PCP - General 09/10/23 08/01/24 Thompson Napoles MD [address] [place] [address] PCP - General Transplant 08/02/24 Darlin Diaz, RN [address] [facility] [address] [place] [address] VAD Coordinator 10/19/17 Aicha Walker Primary Tong Setter 09/19/24 documented as of this encounter
--- OUTSIDE RECORDS SUMMARY | 2024-10-31 18:15 | XMS_ITS | Encounter Summary ---
Author Organization [facility] Address [address] [place] [address] Phone Care Team Providers Care Telephone Collector Name Role Phone Darlin Diaz RN Unavailable Thompson Napoles MD Primary Care Provider + Aicha Walker Unavailable Unavailable Encounter Details Date Type Department Care Team (Late st Contact Info) Description 10/31/2024 Telephone [facility] Cardiology [address] [facility] Advanced Medicine 8th [place] [address] [place] [address] Thompson Napoles MD [address] [facility] [address] [place] [address] Social History Tobacco Use Types Packs/Day Years Used Date Smoking Tobacco: Never Smokeless Tobacco: Never Alcohol Use Standard Drinks/Week Comments No 0 (1 standard drink = 0.6 oz pur e alcohol) OASIS D0700: Social Isolation Answer Da te Recorded Frequency of experiencing loneliness or isolatio n Never 07/04/2022 OASIS A1250: Transportation Answer Date Recorded Lack of Transportation (Medical) No 07/04/2022 Lack of Transportation (Non-Medical) No 07/04/2022 Patient Unable or Declines to Respond No 07/04/2022 OASIS B1300: Health Literacy Answer Domingo e Recorded Frequency of needing help to read materials from doctor or pharmacy Sometimes 07/04/2022 [facility] Utilities Answer Date Recorded In the past 12 months has th e electric, gas, oil, or water company threatened to shut off services in your home? No 09/13/2024 Social Connection and Isolat ion Panel [NHANES] Answer Date Recorded In a typical week, how many times do you talk on the phone with family, friends, or neighbors? More than three times a week 09/13/2024 How often do you get togethe r with friends or relatives? More than three times a week 09/13/2024 How often do you attend chur ch or mandaeism services? Never 09/13/2024 Do you belong to any clubs o r organizations such as caodaism groups, unions, fraternal or athletic groups, or school groups? No 09/13/2024 How often do you attend meet ings of the clubs or organizations you belong to? Never 09/13/2024 Are you , , di vorced, , never , or living with a partner? 09/13/2024 AUDIT-C Answer Date Recorded Q1: How often do you have a drink containing alcohol? Never 05/16/2022 Q2: How many drinks containi ng alcohol do you have on a typical day when you are drinking? Patient does not drink Q3: How often do you have si x or more drinks on one occasion? Never 05/16/2022 Overall Financial Resource Strain (CARDIA) Answe r Date Recorded How hard is it for you to pa y for the very basics like food, housing, medical care, and heating? Not hard at all 09/13/2024 PHQ-2 Answer Date Recorded PHQ-2 Total Score 2 08/05/2024 Hunger Vital Sign Answer Date Recorded Within the past 12 months, y ou worried that your food would run out before you got the money to buy more. Never true 09/14/19 25 Within the past 12 months, t he food you bought just didn't last and you didn't have money to get more. Never true 09/13/2024 PRAPARE - Transportation Answer Date Re corded In the past 12 months, has l ack of transportation kept you from medical appointments or from getting medications? No 08/17 In the past 12 months, has l ack of transportation kept you from meetings, work, or from getting things needed for daily living? No 09/13/2024 PHQ-9 Answer Date Recorded PHQ-9 Total Score 2 08/05/2024 Housing Stability Vital Sign Answer Domingo e Recorded In the last 12 months, was t here a time when you were not able to pay the mortgage or rent on time? No 09/13/2024 In the past 12 months, how m any times have you moved where you were living? 0 09/13/2024 At any time in the past 12 m [facility], were you homeless or living in a fci (including now)? No 09/13/2024 Personal Safety Answer Date Recorded Have you ever been in or are you currently in a harmful physical or emotional relationship or is someone making you feel afraid or unsafe? 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 Pt's blood sugar is 512 and sliding scale does not go that high. Discussed ouroffice does not manage his diabetes. Pt has bottom presser Dr. Gao- phone number provided for [place] to call his office * Telephone Encounter - Yoselyn Cooper - 10/31/2024 12:07 PM CDT VAD [facility] calling to speak with a nurse in regards to reporting the pt's blood sugar being 512. documented in this encounter Plan of Treatment Not on file documented as of this encounter Visit Diagnoses Not on filedocumented in this encounter Care Teams Telephone Collector Relationship Specialty Start Date End Date Thompson Napoles MD [address] [facility] [address] [place] [address] PCP - General Transplant 08/02/24 Darlin Diaz, RN [address] [facility] [address] [place] [address] VAD Coordinator 10/19/17 Aicha Walker Primary Instructor Bus [employer]rolley [employer] Taxi 09/19/24 documented as of this encounter
--- OUTSIDE RECORDS SUMMARY | 2024-10-31 18:15 | XMS_ITS | Encounter Summary ---
Author Organization [facility] Address [address] [place] [address] Phone Care Team Providers Care Weaver Hand Name Role Phone Phillip Neely MD Primary Care Provider [phone] Darlin Diaz RN Unavailable [phone] Papo Remy MD Primary Care Provider [phone] Miscellaneous, Not In File Primary Care Provider Unavailable Derek Remy MD Primary Care Provider No, Physician Primary Care Provider [phone] Thompson Napoles MD Primary Care Provider + Aicha Walker Unavailable Unavailable Encounter Details Date Type Department Care Team (Late st Contact Info) Description 05/07/2018 Telephone [facility] Cardiology [address] [facility] Advanced Medicine 8th [place] [address] [place] [address] Phillip Neely MD [address] [facility] [address] [place] [address] Social History Tobacco Use Types Packs/Day Years Used Date Smoking Tobacco: Never Smokeless Tobacco: Never Alcohol Use Standard Drinks/Week Comments No 0 (1 standard drink = 0.6 oz pur e alcohol) Sex and Gender Information Value Date Recorded Sex Assigned at Not on file Legal Sex Male 7:54 PM INSPECTOR CASING Gender Identity Not on file Sexual Orientation Not on file documented as of this encounter Plan of Treatment Not on file documented as of this encounter Visit Diagnoses Not on filedocumented in this encounter Additional Health Concerns Infection Onset Date Last Indicated Resolved Time COVID: Suspected 05/20/2022 05/20/2022 05/20/2022 12:54 PM INSPECTOR CASING MRSA Comment:MRSA Isolation Alf 07/20/24 05/25/2024 05/25/2024 07/20/2024 6:[address] COVID: Suspected 08/02/2024 08/02/2024 08/02/2024 7:27 PM CDT documented as of this encounter Care Teams Weaver Hand Relationship Specialty Start Date End Date Phillip Neely MD PCP - General 08/27/17 07/04/18 Papo Remy MD [address] [place] [address] PCP - General 07/05/18 05/13/22 Miscellaneous, Not In File PCP - General 05/14/22 06/25/22 Derek Remy MD PCP - General Internal Medicine 06/26/22 09/09/23 No, Physician PCP - General 09/10/23 08/01/24 Thompson Napoles MD [address] [facility] [address] [place] [address] PCP - General Transplant 08/02/24 Darlin Diaz, RN [address] [facility] [address] [place], [place] [id number] VAD Coordinator 10/19/17 Aicha Walker Primary Cloth Weigher 09/19/24 documented as of this encounter
--- OUTSIDE RECORDS SUMMARY | 2024-10-31 18:15 | XMS_ITS | Encounter Summary ---
Author Organization [facility] Address [address] [place] [address] Phone Care Team Providers Care Pension Fund Manager Name Role Phone Darlin Diaz RN Unavailable [phone] Thompson Napoles MD Primary Care Provider + Aicha Walker Unavailable Unavailable Reason for Visit * Reason Onset Date Comments Prior Auth 10/14/2024 ENRIQUE Coleman Encounter Details Date Type Department Care Team (Late st Contact Info) Description 10/14/2024 Telephone [facility] Endocrinology Metabolism and Lipid [address] [facility] Advanced Medicine 5th [place] [address] [place] [address] Ping Shah RMA [address] [place] [address] Prior Auth (ENRIQUE MINAYA PLEASE) Social History Tobacco Use Types Packs/Day Years [...] materials from doctor or pharmacy Sometimes 07/04/2022 [facility] Utilities Answer Date Recorded In the [...] often do you attend chur ch or mu-ism services? Never 09/13/2024 Do you belong to any clubs o r organizations such as spiritism groups, unions, fraternal or athletic groups, or [...] any time in the past 12 m [facility], were you homeless or living in a group home (including now)? No 09/13/2024 Personal Safety Answer Date Recorded Have you ever been in or are you currently in a harmful physical or emotional relationship or is someone making you feel afraid or unsafe? 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 New prescriptions in chart * Telephone Encounter - Shannan Jones RMA - 10/18/2024 4:12 PM CDT Med dc 2021 pa not needed * Telephone Encounter - Jasmin Armenta - 10/18/2024 11:59 AM CDT Please advise if PA is still needed * Telephone Encounter - Jasmin Armenta - 10/14/2024 1:39 PM CDT This is not on his active med list, looks like it was d/c in 2021. Please clarify if patient is still taking and if PA is still needed. * Telephone Encounter - Ping Shah RMA - 10/14/2024 12:35 PM CDT Images from the original note were not included. documented in this encounter Plan of Treatment Not on file documented as of this encounter Visit Diagnoses Not on filedocumented in this encounter Care Teams Pension Fund Manager Relationship Specialty Start Date End Date Thompson Napoles MD [address] [facility] [address] [place] [address] PCP - General Transplant 08/02/24 Darlin Diaz, RN [address] [facility] [address] [place] [address] VAD Coordinator 10/19/17 Aicha Walker Primary Drying Frame Operator 09/19/24 documented as of this encounter
--- OUTSIDE RECORDS SUMMARY | 2024-10-31 18:15 | XMS_ITS | Encounter Summary ---
Author Organization [facility] Healthcare Address [address] [place] [address] Care Team Providers Care Bias Cutting Machine Operator Vertical Name Role Phone Darlin Diaz RN Unavailable [phone] Thompson Napoles MD Primary Care Provider + Aicha Walker Unavailable Unavailable Encounter Details Date Type Department Care Team (Late st Contact Info) Description 10/18/[address] [facility] Transplant Heart [address] [address] [address] [phone] [place] [address] Aicha Walker Social History Tobacco Use Types Packs/Day Years [...] materials from doctor or pharmacy Sometimes 07/04/2022 [facility] Utilities Answer Date Recorded In [...] any clubs o r organizations such as yazidi groups, unions, fraternal or athletic groups, or [...] any time in the past 12 m [facility], were you homeless or living in a fpc (including now)? No 09/13/2024 Personal Safety Answer Date Recorded Have you ever been in or are you currently in a harmful physical or emotional relationship or is someone making you feel afraid or unsafe? 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 States that patient was in a hurry to get down for breakfast this morning so MAYE RN was unable to draw patients other labs but she will draw those on Saturday 10/21. documented in this encounter Plan of Treatment Not on file documented as of this encounter Visit Diagnoses Not on filedocumented in this encounter Care Teams Bias Cutting Machine Operator Vertical Relationship Specialty Start Date End Date Thompson Napoles MD [address] [address] PCP - General Transplant 08/02/24 Darlin Diaz, RN [address] [facility] [address] [place] [address] VAD Coordinator 10/19/17 Aicha Walker Primary Hot Head 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
--- OUTSIDE RECORDS SUMMARY | 2024-10-31 18:15 | XMS_ITS | Encounter Summary ---
Author Organization [facility] Address [address] [place] [address] Phone Care Team Providers Care Dowel Pin Man Name Role Phone Darlin Diaz RN Unavailable [phone] Thompson Napoles MD Primary Care Provider + Aicha Walker Unavailable Unavailable Encounter Details Date Type Department Care Team (Late st Contact Info) Description 10/31/2024 Telephone [facility] Endocrinology Metabolism and Lipid [address] [facility] Medical Office Building [address], [address] [place] [address] Diana Rose RN Social History Tobacco Use Types Packs/Day Years [...] doctor or pharmacy Sometimes 07/04/2022 [facility] Utilities Answer Date Recorded In the [...] often do you attend chur ch or shinto services? Never 09/13/2024 Do you belong to any clubs o r organizations such as anabaptism groups, unions, fraternal or athletic groups, or [...] medical appointments or from getting medications? No 04/2 01/2025 In the past 12 months, has l [...] any time in the past [address] [facility], were you homeless or living in a long term (including now)? No 09/13/2024 Personal Safety Answer Date Recorded Have you ever been in or are you currently in a harmful physical or emotional relationship or is someone making you feel afraid or unsafe? 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 Gender Identity Not on file Sexual Orientation Not on file documented as of this encounter Ordered Prescriptions Prescription Sig Dispense Quantity Refills Last Filled Start Date End Date Jardiance 10 mg tabletIndications: type 2 diabetes mellitus Take 1 tablet (10 mg total) by mouth daily 30 tablet 10/31/2024 10/31/2025 semaglutide (OZEMPIC) 0.25 mg or 0.5 mg (2 mg/3 mL) pen injector injectionIndicatio ns:Type 2 diabetes mellitus with hyperglycemia, with long-term current use of insulin (HCC) Inject 0.5 mg under the skin once a week 3 mL 11 10/31/2024 documented in this encounter Miscellaneous Notes * Telephone Encounter - Diana Rose, RN - 10/31/2024 3:56 PM CDT Danuta pang the assisted living called to say patient's sugar was greater than 500 and had been running 450 and above for a day or so. Medications were reviewed and Ozempic and jardiance were not continued after last hospital stay. I advised that he go to the ER and called his daughter Eugenie to give her a recommendation a trip to the ER would be the best way to bring his glucose down safely.Eugenie was not happy about another trip to the hospital ( many hospital admissions this year). I explained that no one from endocrinology was ever consulted while he was in the hospital any time. Eugenie called back saying he was going to refuse to go. I called Dermotttyson pang to confirm the amount of insulin he was taking and I was told that he in fact was agreeing to go to the ER and had left. She did say they had gotten his glucose down to 358 but it had gone back up to greater than 400 when EMS arrived. Plan to reorder Ozempic and Jardiance. Resubmit prior auth And to call Eugenie to get him seen by Dr. Gao or the nurse practitioner. Ozempic and Jardiance will be restarted and prior auth resubmitted. documented in this encounter Plan of Treatment Not on file documented as of this encounter Visit Diagnoses Diagnosis Type 2 diabetes mellitus with hyperglycemia, with long-term current use of insulin (HCC)- Primary documented in this encounter Discontinued Medications Medication Sig Discontinue Reason Start Date End Da te semaglutide (Ozempic) 0.25 mg or 0.5 mg(2 mg/1.5 mL) pen injector injection Inject 0.25 mg under the skin once a week Alternate therapy 10/31/2024 10/31/2024 documented as of this encounter Historical Medications * This list may reflect changes made after this encounter. semaglutide (Ozempic) 0.25 mg or 0.5 mg(2 mg/1.5 mL) pen injector injection Inject 0.25 mg under the skin once a week 1.5 mL 3 10/31/2024 10/31/2024 added in this encounter Care Teams Dowel Pin Man Relationship Specialty Start Date End Date Thompson Napoles MD [address] [facility] [address] [place] [address] PCP - General Transplant 08/02/24 Darlin Diaz, RN [address] [facility] [address] [place] [address] VAD Coordinator 10/19/17 Aicha Walker Primary Base Wad Operator Adjuster 09/19/24 documented as of this encounter
--- OUTSIDE RECORDS SUMMARY | 2024-10-31 18:15 | XMS_ITS | Encounter Summary ---
Author Organization [facility] Address [address] [place] [address] Phone Care Team Providers Care Guidance Counselor Name Role Phone Darlin Diaz RN Unavailable [phone] Thompson Napoles MD Primary Care Provider + Aicha Walker Unavailable Unavailable Encounter Details Date Type Department Care Team (Late st Contact Info) Description 10/07/2024 Telephone [facility] Cardiology [address] [facility] Advanced Medicine 8th [place] [address] [place] [address] Aylin Vasquez Social History Tobacco Use Types Packs/Day Years [...] materials from doctor or pharmacy Sometimes 07/04/2022 [facility] Utilities Answer Date Recorded In the [...] often do you attend chur ch or caodaism services? Never 09/13/2024 Do you belong to any clubs o r organizations such as adventism groups, unions, fraternal or athletic groups, or [...] any time in the past 12 m [facility], were you homeless or living in a longterm (including now)? No 09/13/2024 Personal Safety Answer Date Recorded Have you ever been in or are you currently in a harmful physical or emotional relationship or is someone making you feel afraid or unsafe? 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 Will call office if need to recertify when current sessions are done * Telephone Encounter - Deb Boss - 10/12/2024 11:03 AM CDT VAD [facility] WITH ROCHELLE STATES PT'S OCCUPATIONAL THERAPY ASSESSMENT WAS COMPLETED TODAY. WANTED TO MAKE YOU AWARE * Telephone Encounter - Darlin Diaz RN - 10/07/2024 2:27 PM CDT Returned phone call to Z[facility]. Verbal order given for pt to continue PT as recommended. * Telephone Encounter - Daniela Helm RN - 10/07/2024 2:15 PM CDT Forwarding this message to LVAD Coordinator. Patient is s/p LVAD. * Telephone Encounter - Aylin Vasquez - 10/07/2024 2:11 PM CDT Kayleen with home PT would like a return call for verbal orders on continuing home PT 1x weekly for 4weeks. She can be reached at [phone]. documented in this encounter Plan of Treatment Not on file documented as of this encounter Visit Diagnoses Not on filedocumented in this encounter Care Teams Guidance Counselor Relationship Specialty Start Date End Date Thompson Napoles MD [address] [facility] [address] [place] [address] PCP - General Transplant 08/02/24 Darlin Diaz, RN [address] [facility] [address] [place] [address] VAD Coordinator 10/19/17 Aicha Walker Primary Personnel Associate 09/19/24 documented as of this encounter
--- OUTSIDE RECORDS SUMMARY | 2024-10-31 18:15 | XMS_ITS | Encounter Summary ---
Author Organization [facility] Address [address] [place] [address] Phone Care Team Providers Care Senior Planner Name Role Phone Darlin Diaz RN Unavailable [phone] Thompson Napoles MD Primary Care Provider + Aicha Walker Unavailable Unavailable Encounter Details Date Type Department Care Team (Late st Contact Info) Description 10/25/2024 Telephone [facility] Cardiology [address] [place] [address] [place] [address] Deb Boss Social History Tobacco Use Types Packs/Day Years [...] materials from doctor or pharmacy Sometimes 07/04/2022 [facility] Utilities Answer Date Recorded In the [...] often do you attend chur ch or roman catholic services? Never 09/13/2024 Do you belong to [...] any time in the past 12 m [facility], were you homeless or living in a retirement (including now)? No 09/13/2024 Personal Safety Answer Date Recorded Have you ever been in or are you currently in a harmful physical or emotional relationship or is someone making you feel afraid or unsafe? 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 Gender Identity Not on file Sexual Orientation Not on file documented as of this encounter Miscellaneous Notes * Telephone Encounter - Darlin Diaz RN - 10/25/2024 11:45 AM CDT See AC encounter * Telephone Encounter - Deb Boss - 10/25/2024 10:35 AM CDT POST TX EZE WITH [facility] STATES PT'S INR WAS 1.3 TAKEN THIS MORNING documented in this encounter Plan of Treatment Not on file documented as of this encounter Visit Diagnoses Not on filedocumented in this encounter Care Teams Senior Planner Relationship Specialty Start Date End Date Thompson Napoles MD [address] [facility] [address] [place] [address] PCP - General Transplant 08/02/24 Darlin Diaz RN [address] [facility] [address] [place] [address] VAD Coordinator 10/19/17 Aicha Walker Primary Curtain Cutter Hand 09/19/24 documented as of this encounter
--- OUTSIDE RECORDS SUMMARY | 2024-10-31 18:15 | XMS_ITS | Encounter Summary ---
Author Organization [facility] Healthcare Address [address] [place] [address] Care Team Providers Care Load Checker Name Role Phone Darlin Diaz RN Unavailable [phone] Thompson Napoles MD Primary Care Provider + Aicha Walker Unavailable Unavailable Encounter Details Date Type Department Care Team (Late st Contact Info) Description 10/14/2024 Telephone [facility] Transplant Heart [address] [address] [address] [id number] [place] [address] Aicha Walker Social History Tobacco Use Types [...] materials from doctor or pharmacy Sometimes 07/04/2022 [facility] Utilities Answer Date Recorded In the [...] often do you attend chur ch or mormon services? Never 09/13/2024 Do you belong to any clubs o r organizations such as presybeterian groups, unions, fraternal or athletic groups, or [...] any time in the past 12 m [facility], were you homeless or living in a prison (including now)? No 09/13/2024 Personal Safety Answer Date Recorded Have you ever been in or are you currently in a harmful physical or emotional relationship or is someone making you feel afraid or unsafe? 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 [employer] Gender Identity Not on file Sexual Orientation Not on file documented as of this encounter Miscellaneous Notes * Telephone Encounter - Darlin Diaz RN - 10/14/2024 11:03 AM CDT See AC encounter * Telephone Encounter - Aicha Walker - 10/14/2024 10:50 AM CDT RN calls to report patients INR this morning of 1.2 documented in this encounter Plan of Treatment Not on file documented as of this encounter Visit Diagnoses Not on filedocumented in this encounter Care Teams Load Checker Relationship Specialty Start Date End Date Thompson Napoles MD [address] [facility] [address] [place], [place] [id number] PCP - General Transplant 08/02/24 Darlin Diaz RN [address] [facility] [address] [place] [address] VAD Coordinator 10/19/17 Aicha Walker Primary 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
--- OUTSIDE RECORDS SUMMARY | 2024-10-31 18:17 | XMS_ITS | Referral Summary ---
Author Organization [facility] 2 Address [address] [place] [address] Care Team Providers Care Precision Lens Generator Name Role Phone Darlin Diaz RN Unavailable [phone] Thompson Napoles MD Primary Care Provider + Aicha Walker Unavailable Unavailable Encounters Date Type Department Care Team Description 10/31/2024 Telephone [facility] Endocrinology Metabolism and Lipid [address] [facility] Medical Office Building 4, [address] [place] [address] Diana Rose RN 10/31/2024 Telephone [facility] Cardiology [address] [facility] Advanced Medicine 8th [place] [address] [place] [phone] Thompson Napoles MD 10/25/2024 Telephone [facility] Cardiology [address] [facility] [place] for Advanced Medicine 8th [place] [address] [place] [phone] Deb Boss 10/24/2024 Anticoagulation Telephone Call [facility] Transplant Heart [address] [facility] [address] Mailstop [phone] [place] [address] Darlin Diaz, AGUSTINA 10/18/2024 Anticoagulation Telephone Call [facility] Transplant Heart [address] [facility] [address] Mailstop [phone] [place] [address] Darlin Diaz, AGUSTINA 10/18/2024 Telephone [facility] Transplant Heart [address] [facility] [address] Mailstop [phone] [place] [address] Aicha Walker 10/17/2024 Documentation [facility] Transplant Heart [address] [facility] [address] Mailstop [phone] [place] [address] Darlin Diaz, AGUSTINA 10/14/2024 Telephone [facility] Endocrinology Metabolism and Lipid [address] [facility] 5th [place] [address] [place] [phone] Ping Sahh RMA Prior Auth (ENRIQUE ANAYA) 10/14/2024 Telephone [facility] Transplant Heart [address] [facility] [address] Mailstop [phone] [place] [address] Aicha Walker 10/14/2024 Telephone [facility] Infectious Diseases [address] [facility] [address] [place] [address] Catie Garza 10/13/2024 Anticoagulation Telephone Call [facility] Transplant Heart [address] [facility] [address] Mailop [phone] [place] [address] Darlin Diaz, AGUSTINA 10/13/2024 Documentation [facility] Transplant Heart [address] [facility] [address] Mailstop [phone] [place] [address] Darlin Diaz, RN 10/13/2024 10:20 AM CDT Office Visit [facility] Infectious Diseases [address] 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); Encounter for long-term (current) use of antibiotics 10/12/2024 Anticoagulation Telephone Call [facility] Transplant Heart [address] [facility] [address]01 Mailstop [phone] [place] [address] Suki Schilling, AGUSTINA 10/11/2024 Telephone [facility] Transplant Heart [address] [facility] [address] Mailstop [id number] [place] [address] Darlin Diaz, RN 10/07/2024 Telephone [facility] Cardiology [address] [facility] 8th [place] [address] [place] [address] Aylin Vasquez 10/07/2024 Telephone [facility] Transplant Heart [address] [facility] [address]01 Mailstop [phone] [place] [address] Alex Alejo 10/06/2024 Documentation [facility] Transplant Heart [address] [facility] [address] Mailstop [phone] [place] [address] Darlin Diaz, RN 10/06/2024 Telephone [facility] Transplant Heart [address] [facility] [address] Mailstop [id number] [place] [address] Alex Alejo 10/05/[address] [place] [phone] Roberta Morel, RN 10/05/2024 [facility] [address] [facility] [address] [place] [phone] Carlos Hatch MD 10/04/2024 [facility] [address] [facility] [address] [place] [phone] Carlos Hatch MD 10/03/2024 [facility] [address] [place] [address] [place] [phone] Carlos Hatch MD 10/02/2024 [facility] [address] [facility] [address] [place] [phone] Carlos Hatch MD 10/01/2024 [facility] [address] [facility] [address] [place] [phone] Carlos Hatch MD 09/30/2024 11:07 AM CDT - 09/30/2024 11:59 PM CDT Hospital Encounter [facility] ([facility]) [address] [place] [address] Altered mental status, unspecified altered mental status type Discharge Disposition: Discharge to home or self care 09/30/2024 [facility] [address] [facility] [address] [place] [phone] Carlos Hatch MD 09/30/2024 Documentation [facility] [address] [facility] [address] [place] [phone] Carlos Hatch MD 09/29/2024 [facility] [address] [facility] [address] [place] [phone] Carlos Hatch MD 09/28/2024 [facility] [address] [facility] [address] [place] [phone] Carlos Hatch MD 09/27/2024 [facility] [address] [facility] [address] [place] [phone] Carlos Hatch MD 09/26/2024 Anticoagulation Telephone Call [facility] Cardiology [address] [facility] Medical Office Building [address] [place] [phone] Cora Salter RN 09/26/2024 [facility] [address] [facility] [address] [place] [phone] Carlos Hatch MD 09/25/2024 [facility] [address] [facility] [address] [place] [address] Carlos Hatch MD 09/24/2024 [facility] [address] [facility] [address], [place] [address] Carlos Hatch MD 09/23/2024 [facility] [address] [facility] [address], [place] [address] Carlos Hatch MD 09/21/2024 Anticoagulation Telephone Call [facility] Transplant Heart [address] [facility] [address] Mailstop [phone] [place] [address] Darlin Diaz RN 09/21/2024 Documentation [facility] Cardiology [facility] Office Building 3 [address] [place] [address] Cora Salter RN 09/21/2024 Anticoagulation Telephone Call [facility] Cardiology 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 Discharge Disposition: Discharge to an IP Rehab facility 09/09/2024 Telephone [facility] Pulmonary [address] [place] [phone] Miriam Trejo MA Chart prep (Call made to the patient, [place] CARD) 09/07/2024 Anticoagulation Telephone Call [facility] Transplant Heart [address] [facility] [address] Mailstop [phone] [place] [address] Cora Salter, AGUSTINA 09/07/2024 Telephone [facility] Transplant Heart [address] [facility] [address] Mailstop [phone] [place] [address] Alex Alejo 09/07/2024 Telephone [facility] Cardiology [address] [facility] [place] for [facility] Medicine 8th [place] [address] [place] [address] Thompson Light MD PhD 09/07/2024 Telephone [facility] Cardiology [address] [facility] [place] 8th [place] [address] [place] [address] Thompson Light MD PhD 09/02/2024 Documentation [facility] Transplant Heart [address] [facility] [address] Mailstop [phone] [place] [address] Cora Salter RN 09/02/2024 Telephone [facility] Cardiology [address] [place] [address] for Advanced Medicine 8th [place] [address] [place] [address] Thompson Light MD PhD 09/02/2024 Anticoagulation Telephone Call [facility] Transplant Heart [address] [facility] [address]01 Mailstop [phone] [place] [address] Cora Salter, AGUSTINA 09/01/2024 Telephone [facility] Transplant Heart [address] [facility] [address] Mailstop [phone] [place] [address] Alex Alejo 09/01/2024 Telephone [facility] Cardiology [address] [facility] [place] 8th [place] [address] [place] [address] Thompson Napoles MD 08/31/2024 Documentation [facility] Transplant Heart [address] [facility] [address] Mailstop [phone] [place] [address] Darlin Diaz, RN 08/31/2024 Anticoagulation Telephone Call [facility] Transplant Heart [address] [facility] [address] Mailstop [phone] [place] [address] Darlin Diaz, RN 08/31/2024 Telephone [facility] Cardiology [address] [facility] Advanced Medicine 8th [place] [address] [place] [address] Thompson Napoles MD 08/30/2024 Telephone [facility] Transplant Heart [address] [facility] [address]01 Mailstop [phone] [place] [address] Darlin Diaz, RN 08/29/2024 Documentation [facility] Transplant Heart [address] [facility] [address] Mailstop [phone] [place] [address] Darlin Diaz, RN 08/29/2024 Telephone [facility] Transplant Heart [address] [facility] [address] Mailstop [phone] [place] [address] Darlin Diaz, RN 08/29/2024 Orders Only [facility] Orthopaedic Surgery [address] [facility] 6th [place] [address] [place] [address] Leyda Aguilar NP 08/28/2024 Orders Only [facility] [phone] Unknown, Notinfile 08/27/2024 Orders Only [facility] [phone] Unknown, Notinfile 08/26/2024 Orders Only [facility] [phone] Unknown, Notinfile 08/25/2024 Orders Only [facility] Orthopaedic Surgery [address] [facility] Advanced Medicine 6th [place] [address] [place] [address] Leyda Aguilar NP 08/24/2024 Orders Only [facility] [phone] Medicine 08/23/2024 Orders Only [facility] [phone] Unknown, Notinfile 08/22/2024 Orders Only [facility] Orthopaedic Surgery [address] [facility] Medicine 6th [place] [address] [place] [address] Leyda Aguilar, CATY 08/18/2024 Orders Only [facility] Orthopaedic Surgery [address] [facility] 6th [place] [address] [place] [address] Leyda Aguilar, CATY 08/16/2024 Telephone [facility] Cardiology [address] [facility] 8th [place] [address] [place] [phone] Thompson Napoles MD 08/15/2024 4:35 PM CDT - 08/15/2024 11:59 PM CDT Hospital Encounter [facility] [address] [place] [address] Thompson Light MD PhD Discharge Disposition: Discharge to home or self care 08/15/2024 Anticoagulation Telephone Call [facility] Transplant Heart [address] [address] Mailstop [phone] [place] [address] Darlin Diaz RN 08/02/2024 4:13 PM CDT - 08/15/2024 4:29 PM CDT Hospital Encounter [address] [address] Paris Aguila MD Hart[place]e, Justin Curtis, MD PhD Thom Araujo MD Acute encephalopathy (Primary Dx); LVAD (left ventricular assist device) present (HCC); 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); At risk for sepsis; Delirium; Cognitive decline Discharge Disposition: Discharge to an IP Rehab facility 08/01/2024 Telephone [facility] Cardiology [address] [facility] 8th [place] [address] [place] [address] Thompson Napoles MD 08/01/2024 Anticoagulation Telephone Call [facility] Transplant Heart [address] [facility] 4210 Mailstop [phone] [place] [address] Darlin Diaz RN 08/01/2024 Telephone [facility] Transplant Heart [address] [facility] [address] Mailstop [phone] [place] [address] Ivett Richard from Last 3 Months Allergies Active Allergy Reactions Criticality Noted Date Comments Lisinopril Cough Low 12/20/2015 Spironolactone Other (See comments) Low 03/05/2017 Breast tenderness Medications acetaminophen (TYLENOL) 325 mg tabletIndicati ons:Fever,Pain Take 2 tablets (650 mg total) by mouth every 4 (four) hours as needed for pain 30 tablet 06/27/19 21 Active semaglutide (Ozempic) 0.25 mg or 0.5 mg(2 mg/1.5 mL) pen injector injection Inject 0.25 mg under the skin once a week 1.5 mL 3 07/12/19 22 Active atorvastatin (LIPITOR) 80 mg tablet TAKE 1 TABLET(80 MG) BY MOUTH DAILY 90 tablet 3 11/20/19 24 Active metoprolol XL (TOPROL-XL) 50 mg extended release tablet TAKE 1 TABLET(50 MG) BY MOUTH DAILY 90 tablet 3 02/29/20 24 Active levothyroxine (SYNTHROID) 100 mcg tabletIndicati ons:Hypothyroi dism, unspecified type Take 1 tablet (100 mcg total) by mouth 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 200 each 3 03/29/20 24 Active doxycycline (MONODOX) 100 mg capsuleIndicat ions:Abdominal /Pelvic Infection,Head Of Commission Department gato Suppression Take 1 capsule (100 mg total) by mouth 2 (two) times a day 60 capsule 6 06/08/19 25 Active polyvinyl alcohol-povido ne (REFRESH CLASSIC) 1.4-0.6 % dropperetteInd ications:Dry Eye Administer 1 drop into both eyes 4 (four) times a day as needed for dry eyes 1 each 06/08/19 25 Active tamsulosin (FLOMAX) 0.4 mg extended release capsuleIndicat ions:benign prostatic hyperplasia with lower urinary tract sx Take 1 capsule (0.4 mg total) by mouth daily with dinner 30 capsule 1 06/08/19 25 Active white petrolatum-min eral oil (REFRESH PM) ointment Apply 1 Application to right eye nightly 06/08/19 25 Active magnesium oxide (MAG-OX) 400 mg (241.3 mg elemental magnesium) tablet TAKE 1 TABLET(400 MG) BY MOUTH TWICE DAILY 180 tablet 3 06/16/19 25 Active traZODone (DESYREL) 50 mg tablet Take 1 tablet (50 mg total) by mouth nightly as needed for sleep 08/16/19 25 Active insulin glargine (LANTUS, SEMGLEE) 100 unit/mL vial for injectionIndic ations:Diabete s Mellitus Inject 10 Units under the skin nightly 09/21/19 25 2025 Active insulin lispro (HumaLOG, ADMELOG) 100 unit/mL pen for injection Inject 1-5 units under the skin 3 (three) times a day with meals. Blood glucose mg/dL 150-199: 1 unit, 200-249: 2 units, 250-299: 3 units, 300-349: 4 units, 350 or greater: 5 units. Notify provider for blood glucose greater than 299 mg/dL. Refer to After Visit Summary for Sliding Scale Insulin Instructions. 09/21/[address] (PROTONIX) 40 mg EC tabletIndicati ons:Stress Ulcer Prophylaxis Take 1 tablet (40 mg total) by mouth daily 09/22/19 25 2025 Active ramelteon (ROZEREM) 8 mg tabletIndicati ons:Sleep-Onse t Insomnia Take 1 tablet (8 mg total) by mouth nightly as needed for sleep 09/21/19 25 2025 Active senna-docusate (PERICOLACE) 8.6-50 mg Take 1 tablet by mouth 2 (two) times a day 09/21/19 25 Active polyethylene glycol (MIRALAX) 17 gram packetIndicati ons:constipati on Take 1 packet (17 g total) by mouth daily as needed for constipation 09/21/19 Active octreotide LAR (SandoSTATIN LAR) 20 mg suspension,ext ended rel recon Inject 1 each (20 mg total) into the muscle as instructed every 30 (thirty) days last dose given on 09/16/24 09/21/19 Active mirtazapine (REMERON) 30 mg tablet TAKE 1 TABLET(30 MG) BY MOUTH EVERY NIGHT 90 tablet 3 10/17/19 Active warfarin (COUMADIN) 3 mg tabletIndicati ons:Left Ventricular Assist Device,goal 1.8-2.2 Take 2mg daily 10/19/19 25 Active semaglutide (OZEMPIC) 0.25 mg or 0.5 mg (2 mg/3 mL) pen injector injectionIndic ations:Type 2 diabetes mellitus with hyperglycemia, with long-term current use of insulin (HCC) Inject 0.5 mg under the skin once a week 3 mL 11/01/19 Active Jardiance 10 mg tabletIndicati ons:type 2 diabetes mellitus Take 1 tablet (10 mg total) by mouth daily 30 tablet 11/01/192025 Active amoxicillin-cl avulanate (AUGMENTIN) 875-125 mg per tabletIndicati ons:Abdominal/ Pelvic Infection Take 1 tablet (875 mg of amoxicillin total) by mouth 2 (two) times a day 09/21/19 25 2024 Discontinued warfarin (COUMADIN) 3 mg tabletIndicati ons:Left Ventricular Assist Device,goal 1.8-2.2 Take 1.5 tablets (4.5 mg total) by mouth daily 09/21/192024 Discontinued semaglutide (Ozempic) 0.25 mg or 0.5 mg(2 mg/1.5 mL) pen injector injection Inject 0.25 mg under the skin once a week 1.5 mL 11/01/19 25 2024 Discontinued(A lternate therapy) Active Problems Problem Noted Date Diagnosed Date FTT (failure to thrive) in adult 09/13/2024 Assessment & Plan (09/20/2024 10:00 AM CDT): Presenting with weakness from assisted living facility. Daughter reports facility noted weakness and intermittent confusion with concurrent drainage from driveline site which appeared purulent. Extensive workup during previous admission for AMS. Seen by neurology, recommended referral to [facility] [place]. -[facility] -PT/OT recommendations appreciated -PMR consulted -TRISL following -Minimize use of psychotropic drugs given dementia Assessment & Plan (09/19/2024 12:34 PM CDT): Presenting with weakness from assisted living facility. Daughter reports facility noted weakness and intermittent confusion with concurrent drainage from driveline site which appeared purulent. Extensive workup during previous admission for AMS. Seen by neurology, recommended referral to [facility] [place]. -ongoing outpatient evaluation in [facility] -PT/OT recommendations appreciated Assessment & Plan (09/17/2024 7:16 AM CDT): Presenting with weakness from assisted living facility. Daughter reports facility noted weakness and intermittent confusion with concurrent drainage from driveline site which appeared purulent. Extensive workup during previous admission for AMS. Seen by neurology, recommended referral to [facility] [place]. -ongoing outpatient evaluation in [facility] -PT/OT Assessment & Plan (09/16/2024 10:25 AM CDT): Presenting with weakness from assisted living facility. Daughter reports facility noted weakness and intermittent confusion with concurrent drainage from driveline site which appeared purulent. Extensive workup during previous admission for AMS. Seen by neurology, recommended referral to [facility]. -ongoing outpatient evaluation in [facility] -PT/OT Assessment & Plan (09/15/2024 10:00 AM CDT): Presenting with weakness from assisted living facility. Daughter reports facility noted weakness and intermittent confusion with concurrent drainage from driveline site which appeared purulent. Extensive workup during previous admission for AMS. Seen by neurology, recommended referral to [facility] [place]. -infectious workup pending -ongoing outpatient evaluation in [facility] -PT/OT Assessment & Plan (09/14/2024 11:20 AM CDT): Presenting with weakness from assisted living facility. Daughter reports facility noted weakness and intermittent confusion with concurrent drainage from driveline site which appeared purulent. Extensive workup during previous admission for AMS. Seen by neurology, recommended referral to [facility]. -infectious workup pending -ongoing outpatient evaluation -PT/OT Assessment & Plan (09/13/2024 11:38 AM CDT): Presenting with weakness from assisted living facility. Daughter reports facility noted weakness and intermittent confusion with concurrent drainage from driveline site which appeared purulent. Extensive workup during previous admission for AMS. Seen by neurology, recommended referral to [facility]. -infectious workup pending -ongoing outpatient evaluation -PT/OT Moderate protein-calorie malnutrition 08/11/2024 Constipation 06/05/2024 Assessment & Plan (06/07/2024 10:16 AM GAS FITTER): -resolved constipation issues after getting cottonseed enema on06/05 -continue PRN dulcolax suppository PRN, colace 100 mg daily, miralax daily Urinary retention 06/05/2024 Assessment & Plan (06/08/2024 2:48 PM GAS FITTER): Patient pulled his corbin out last week -06/05 had urinary retention and corbin placed and started on Flomax 0.4 mg -culture negative -will need a voiding trial Assessment & Plan (06/07/2024 10:39 AM GAS FITTER): Patient pulled his corbin out last week -06/05 had urinary retention and corbin placed and started on Flomax 0.4 mg -culture negative Hematuria 05/28/2024 Assessment & Plan (06/08/2024 2:56 PM GAS FITTER): Patient previously having hematuria r/t trauma from corbin placement -Patient denies urinary symptoms -Hgb stable -currently resolved Assessment & Plan (06/07/2024 10:16 AM GAS FITTER): Patient previously having hematuria r/t trauma from corbin placement -Patient denies urinary symptoms -Hgb stable -currently resolved Assessment & Plan (06/03/2024 11:00 AM GAS FITTER): Patient previously having hematuria r/t trauma from corbin placement -Patient denies urinary symptoms -Hgb stable -INR 2.45 Assessment & Plan (06/02/2024 10:16 AM GAS FITTER): Patient previously having hematuria r/t trauma from corbin placement -Patient denies urinary symptoms -Hgb 12.6 on AM labs, slightly lower today, CTM -d/c heparin gtt, INR 1.9 Assessment & Plan (05/29/2024 1:00 PM GAS FITTER): Patient having hematuria today likely r/t trauma from corbin placement yesterday -Patient denies urinary symptoms -Hgb 13.8 on AM labs-stable -Heparin gtt now resumed-continue Assessment & Plan (05/28/2024 4:34 PM GAS FITTER): Patient having hematuria today likely r/t trauma from corbin placement yesterday -Patient denies urinary symptoms -Hgb 14.0 on AM labs -Heparin gtt paused this morning due to hematuria -Repeat Hgb 13.5-stable -Heparin gtt now resumed Infection associated with dr valdez of left ventricular assist device (LVAD) 05/26/2024 Assessment & Plan (09/20/2024 9:57 AM CDT): Driveline dressing with evidence of ordonez drainage and approximately 1 cm of surrounding erythema. No tenderness, fluctuance or expressed pus. -wound culture +MRSA and E coli -blood culture NGTD -DC empiric vanc/cefe; resumed home antibiotics - augmentin and doxy -CT CAP w/wo contrast: unchanged stranding, no fluid collection -ID consulted and following Assessment & Plan (09/19/2024 11:10 AM CDT): Driveline dressing with evidence of ordonez drainage and approximately 1 cm of surrounding erythema. No tenderness, fluctuance or expressed pus. -wound culture +MRSA and E coli -blood culture NGTD -hold home antibiotics -continue empiric vanc/cefe; vanc trough 19 -CT CAP w/wo contrast: unchanged stranding, no fluid collection -ID consulted and following: remains on augmentin and doxy Assessment & Plan (09/17/2024 7:17 AM CDT): Driveline dressing with evidence of ordonez drainage and approximately 1 cm of surrounding erythema. No tenderness, fluctuance or expressed pus. -wound culture +MRSA and E coli -blood culture NGTD -hold home antibiotics -continue empiric vanc/cefe; vanc trough 19 -CT CAP w/wo contrast: unchanged stranding, no fluid collection -ID consulted and following: remains on augmentin and doxy Assessment & Plan (09/16/2024 1:36 PM CDT): Driveline dressing with evidence of ordonez drainage and approximately 1 cm of surrounding erythema. No tenderness, fluctuance or expressed pus. -wound culture +MRSA and E coli -blood culture NGTD -hold home antibiotics -continue empiric vanc/cefe; vanc trough 19 -CT CAP w/wo contrast: unchanged stranding, no fluid collection -ID consulted and following Assessment & Plan (09/15/2024 9:58 AM CDT): Driveline dressing with evidence of ordonez drainage and approximately 1 cm of surrounding erythema. No tenderness, fluctuance or expressed pus. -wound culture +MRSA and E coli -blood culture NGTD -hold home antibiotics -continue empiric vanc/cefe; vanc trough 10 yesterday -CT CAP w/wo contrast: unchanged stranding, no fluid collection -ID consulted and following Assessment & Plan (09/14/2024 11:22 AM CDT): Driveline dressing with evidence of ordonez drainage and approximately 1 cm of surrounding erythema. No tenderness, fluctuance or expressed pus. -wound culture +MRSA -blood culture NGTD -hold home antibiotics, empiric vanc/cefe -CT CAP w/wo contrast Assessment & Plan (09/13/2024 11:00 AM CDT): Driveline dressing with evidence of ordonez drainage and approximately 1 cm of surrounding erythema. No tenderness, fluctuance or expressed pus. -wound culture pending -blood culture NGTD -hold home antibiotics, empiric vanc/cefe Assessment & Plan (08/15/2024 10:21 AM CDT): E faecalis BSI February 2017. Follows with ID. -CT on admit with similar appearance of mild soft tissue stranding along the right abdominal wall LVAD drive line, recommend correlation with signs and symptoms of cellulitis, no organized fluid collection -No noted pain/new drainage to DL site -Afebrile, HDS, no leukocytosis -UA negative, blood cultures NGTD -DL site culture (+) MRSA -Discontinued broad spectrum abx (Vanc/Cefe) -Resumed home amoxicillin and doxy Assessment & Plan (08/14/2024 4:53 PM CDT): E faecalis BSI February 2017. Follows with ID. -CT on admit with similar appearance of mild soft tissue stranding along the right abdominal wall LVAD drive line, recommend correlation with signs and symptoms of cellulitis, no organized fluid collection -No noted pain/new drainage to DL site -Afebrile, HDS, no leukocytosis -UA negative, blood cultures NGTD -DL site culture (+) MRSA -Discontinued broad spectrum abx (Vanc/Cefe) -Resumed home amoxicillin and doxy Assessment & Plan (08/12/2024 10:03 AM CDT): E faecalis BSI February 2017. Follows with ID. -CT on admit with similar appearance of mild soft tissue stranding along the right abdominal wall LVAD drive line, recommend correlation with signs and symptoms of cellulitis, no organized fluid collection -No noted pain/new drainage to DL site -Afebrile, HDS, no leukocytosis -UA negative, blood cultures NGTD -DL site culture (+) MRSA -Discontinued broad spectrum abx (Vanc/Cefe) -Resumed home amoxicillin and doxy Assessment & Plan (08/11/2024 11:02 AM CDT): E faecalis BSI February 2017. Follows with ID. 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 Follows with ID. -CT on admit with similar appearance of mild soft tissue stranding along the right abdominal wall LVAD drive line, recommend correlation with signs and symptoms of cellulitis, no organized fluid collection -No noted pain/new drainage to DL site -Afebrile, HDS, no leukocytosis -UA negative, blood cultures NGTD -DL site culture (+) MRSA -Resume home amoxicillin and doxy -Discontinue broad spectrum abx (Vanc/Cefe) Assessment & Plan (08/09/2024 3:16 PM CDT): E faecalis BSI February 2017. Follows with ID. 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 Follows with ID. -CT on admit with similar appearance of mild soft tissue stranding along the right abdominal wall LVAD drive line, recommend correlation with signs and symptoms of cellulitis, no organized fluid collection -No noted pain/new drainage to DL site -Afebrile, HDS, no leukocytosis -UA negative, blood cultures NGTD -DL site culture (+) MRSA -Hold amoxicillin and doxy -Continue broad spectrum abx for now (Vanc/Cefe) -Consider ID consult Assessment & Plan (08/05/2024 9:50 AM CDT): E faecalis BSI February 2017. Follows with ID. -CT on admit with similar appearance of mild soft tissue stranding along the right abdominal wall LVAD drive line, recommend correlation with signs and symptoms of cellulitis, no organized fluid collection -No noted pain/new drainage to DL site -Afebrile, HDS, no leukocytosis -UA negative, blood cultures NGTD -Obtain DL site culture -Hold amoxicillin and doxy -Empiric Vanc/Cefe given altered mental status -Consider ID consult Assessment & Plan (08/04/2024 4:15 PM CDT): E faecalis BSI February 2017. Follows with ID. -CT on admit with similar appearance of mild soft tissue stranding along the right abdominal wall LVAD drive line, recommend correlation with signs and symptoms of cellulitis, no organized fluid collection -No noted pain/new drainage to DL site -Afebrile, HDS, no leukocytosis -UA negative, blood cultures NGTD -Obtain DL site culture -Hold amoxicillin and doxy -Empiric Vanc/Cefe given altered mental status -Consider ID consult Assessment & Plan (08/03/2024 7:40 PM CDT): E faecalis BSI February 2017. ID following, -continue amoxicillin and doxy -ID consult if cultures turn positive. Assessment & Plan (06/08/2024 2:55 PM GAS FITTER): Admitted with AMS. 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 -Would recommend re-imaging in 2-[address]-AP W contrast to re-examine area of infection to make sure this is improving there are no signs of abscess. -Weekly CK, CMP, CBC -Although there is no historic susceptibility data available for his E. faecalis BSI from 2016, he has been on suppression with amoxicillin 500 mg BID. Daptomycin should cover this prior pathogen. -at time of discharge rehab facility was not interested in accepting patient as there was not a good discharge plan after he left there , as his assisted living would not accept him back as they do not facilitate in giving intravenous antibiotics . Infectious disease called and currently will stop daptomycin and given him one time dose of dalbavancin prior to discharge and then resume amoxicillin 500 mg bid , and start doxycyline 100 mg . He will follow up with Dr. Marti on 07/07/24 -PICC placed 06/06 Assessment & Plan (06/07/2024 10:18 AM GAS FITTER): Admitted with AMS. 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 -Would recommend re-imaging in 2-[address]-AP W contrast to re-examine area of infection to make sure this is improving there are no signs of abscess. -Weekly CK, CMP, CBC -Although there is no historic susceptibility data available for his E. faecalis BSI from 2017, he has been on suppression with amoxicillin 500 mg BID. Daptomycin should cover this prior pathogen. At this time, will hold off on restarting amoxicillin, but he will likely need to be restarted on amoxicillin at the end of his treatment with daptomycin depending on the selected oral suppression regimen. -PICC placed 06/06 Assessment & Plan (06/05/2024 12:40 PM GAS FITTER): Admitted with AMS. 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 -Would recommend re-imaging in 2-[address]-AP W contrast to re-examine area of infection to make sure this is improving there are no signs of abscess. -Weekly CK, CMP, CBC -Although there is no historic susceptibility data available for his E. faecalis BSI from 2016, he has been on suppression with amoxicillin 500 mg BID. Daptomycin should cover this prior pathogen. At this time, will hold off on restarting amoxicillin, but he will likely need to be restarted on amoxicillin at the end of his treatment with daptomycin depending on the selected oral suppression regimen. Assessment & Plan (06/03/2024 11:05 AM GAS FITTER): Admitted with confusion. 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 -UA negative -Blood cultures (05/25) no growth -Wound culture with MRSA -CT of CAP notable for stranding to driveline -No plan for surgical intervention -Vanc 05/25-05/31 Started daptomycin 8 mg/kg Q24 hours. 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 -Would recommend re-imaging in 2-[address]-AP W contrast to re-examine area of infection to make sure this is improving there are no signs of abscess. -weekly CK, CMP, CBC -Although there is no historic susceptibility data available for his E. faecalis BSI from 2016, he has been on suppression with amoxicillin 500 mg BID. Daptomycin should cover this prior pathogen. At this time, will hold off on restarting amoxicillin, but he will likely need to be restarted on amoxicillin at the end of his treatment with daptomycin depending on the selected oral suppression regimen. Assessment & Plan (06/02/2024 10:30 AM GAS FITTER): Admitted with confusion. 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 -UA negative -Blood cultures (05/25) no growth -Wound culture with MRSA -CT of CAP notable for stranding to driveline -No plan for surgical intervention -Vanc 05/25-05/31 Started daptomycin 8 mg/kg Q24 hours. 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 -Would recommend re-imaging in 2-[address]-AP W contrast to re-examine area of infection to make sure this is improving there are no signs of abscess. -weekly CK, CMP, CBC -Although there is no historic susceptibility data available for his E. faecalis BSI from 2016, he has been on suppression with amoxicillin 500 mg BID. Daptomycin should cover this prior pathogen. At this time, will hold off on restarting amoxicillin, but he will likely need to be restarted on amoxicillin at the end of his treatment with daptomycin depending on the selected oral suppression regimen. Assessment & Plan (05/29/2024 12:59 PM GAS FITTER): Admitted with confusion. 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 -UA negative -Blood cultures with NGTD -Wound culture with MRSA -CT of CAP notable for stranding to driveline -No plan for surgical intervention -Transplant ID consulted -Currently on IV vancomycin 1,000mg Q 12 hours ID recommendations: -Stop IV vancomycin -Start daptomycin 8 mg/kg Q24 hours. This will likely be a good medication for OPAT. Would check with CM if this is a medication he can receive at 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 -Would recommend re-imaging in 2-[address]-AP W contrast to re-examine area of infection to make sure this is improving there are no signs of abscess. -Often it is recommended to hold statins while on daptomycin. However if this patient can not stop his statin would recommend getting a baseline CK followed by twice weekly CKs. If statin can be held, would recommend weekly CK monitoring. Would also recommend weekly CBC and CMP monitoring on daptomycin. -Although there is no historic susceptibility data available for his E. faecalis BSI from 2016, he has been on suppression with amoxicillin 500 mg BID. Daptomycin should cover this prior pathogen. At this time, will hold off on restarting amoxicillin, but he will likely need to be restarted on amoxicillin at the end of his treatment with daptomycin depending on the selected oral suppression regimen. Assessment & Plan (05/28/2024 4:34 PM GAS FITTER): Admitted with confusion. 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 -UA negative -Blood cultures with NGTD -Wound culture with MRSA -CT of CAP notable for stranding to driveline -Transplant ID consulted -D/C'd cefepime and oxacillin -Continue Vancomycin 1,250mg Q 12 hours (trough was 22.6 today) -Planning for at least 6 weeks of antibiotic treatment -Recommend re-imaging in 2-[address]-AP W contrast to re-examine area of infection to make sure this is improving there are no signs of abscess -No plan for surgical intervention Assessment & Plan (05/27/2024 11:50 AM GAS FITTER): Admitted with confusion. 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 -UA neg, blood culture NGTD -wound culture MRSA -CT of CAP notable for stranding to driveline -ID consult -continue Vancomycin, DC cefepime and oxacillin -monitor vanc trough, trough 46 was drawn during infusion, will recheck -will need at least 6 weeks antibiotic treatment -recommend re-imaging in 2-[address]-AP W contrast to re-examine area of infection to make sure this is improving there are no signs of abscess Assessment & Plan (05/26/2024 10:48 AM GAS FITTER): Admitted with confusion. 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 -UA neg, blood culture NGTD -wound culture with Moderate Gram Positive Cocci, await sensitivities -CT of CAP notable for stranding to driveline -continue Vancomycin and cefepime, vanc trough tonight -ID consult Altered mental status, unspe cified altered mental status type 05/25/2024 Assessment & Plan (08/15/2024 10:20 AM CDT): -UA, RVP, CT head and CAP all negative -Waxes and wanes, (+) visual hallucinations on admit -- no current hallucinations -Blood cultures NGTD, LVAD DL culture (+) MRSA -Discontinued broad spectrum abx and resume home suppressive amoxicillin/doxy -VPO for close monitoring due to confusion -- now discontinued -Hold/avoid medications that increase risk for delirium -B12 and folate WNL, RPR negative -C/f dementia, consulted neurology -- work up would be outpatient, they made referral to [facility] [place], recommend discontinuing mirtazapine, avoiding home lorazepam and tramadol, if needed for sleep would recommend ramelteon or low dose trazodone; they will not plan to staff this inpatient but can reconsult them if patient's mental status is not improving or worsens -Lights on during day, OOBTC if safe, frequent reorientation, minimize interruptions in sleep -PT/OT/ST -- evals complete and following Assessment & Plan (08/14/2024 4:52 PM CDT): -UA, RVP, CT head and CAP all negative -Waxes and wanes, (+) visual hallucinations -- no current hallucinations -Blood cultures NGTD, LVAD DL culture (+) MRSA -Discontinue broad spectrum abx and resume home suppressive amoxicillin/doxy -VPO for close monitoring due to confusion -- will discontinue -Hold/avoid medications that increase risk for delirium -B12 and folate WNL, RPR negative -C/f dementia, consulted neurology -- work up would be outpatient, they made referral to [facility] [place], recommend discontinuing mirtazapine, avoiding home lorazepam and tramadol, if needed for sleep would recommend ramelteon or low dose trazodone; they will not plan to staff this inpatient but can reconsult them if patient's mental status is not improving or worsens -Lights on during day, OOBTC if safe, frequent reorientation, minimize interruptions in sleep -PT/OT/ST -- evals complete and following Assessment & Plan (08/12/2024 10:02 AM CDT): -UA, RVP, CT head and CAP all negative -Waxes and wanes, (+) visual hallucinations -- no current hallucinations -Blood cultures NGTD, LVAD DL culture (+) MRSA -Discontinue broad spectrum abx and resume home suppressive amoxicillin/doxy -VPO for close monitoring due to confusion -- will discontinue -Hold/avoid medications that increase risk for delirium -B12 and folate WNL, RPR negative -C/f dementia, consulted neurology -- work up would be outpatient, they made referral to [facility] [place], recommend discontinuing mirtazapine, avoiding home lorazepam and tramadol, if needed for sleep would recommend ramelteon or low dose trazodone; they will not plan to staff this inpatient but can reconsult them if patient's mental status is not improving or worsens -Lights on during day, OOBTC if safe, frequent reorientation, minimize interruptions in sleep -PT/OT/ST -- evals complete and following Assessment & Plan (08/11/2024 11:01 AM CDT): -UA, RVP, CT head and CAP all negative -Waxes and wanes, (+) visual hallucinations -- no current hallucinations -Blood cultures NGTD, LVAD DL culture (+) MRSA -Discontinue broad spectrum abx and resume home suppressive amoxicillin/doxy -VPO for close monitoring due to confusion -- will discontinue -Hold/avoid medications that increase risk for delirium -B12 and folate WNL, RPR negative -C/f dementia, consulted neurology -- work up would be outpatient, they made referral to [facility] [place], recommend discontinuing mirtazapine, avoiding home lorazepam and tramadol, if needed for sleep would recommend ramelteon or low dose trazodone; they will not plan to staff this inpatient but can reconsult them if patient's mental status is not improving or worsens -Lights on during day, OOBTC if safe, frequent reorientation, minimize interruptions in sleep -PT/OT/ST -- evals complete and following Assessment & Plan (08/10/2024 11:04 AM CDT): -UA, RVP, CT head and CAP all negative -Waxes and wanes, (+) visual hallucinations -- no current hallucinations -Blood cultures NGTD, LVAD DL culture (+) MRSA -Discontinue broad spectrum abx and resume home suppressive amoxicillin/doxy -VPO for close monitoring due to confusion -Hold/avoid medications that increase risk for delirium -Check B12, folate, RPR -C/f dementia, consult neurology --> Work up would be outpatient, they made referral to [facility] [place], recommend discontinuing mirtazapine, avoiding home lorazepam and tramadol, if needed for sleep would recommend ramelteon or low dose trazodone; they will not plan to staff this inpatient but can reconsult them if patient's mental status is not improving or worsens -Lights on during day, OOBTC if safe, frequent reorientation, minimize interruptions in sleep -PT/OT/ST- evals complete and following Assessment & Plan (08/09/2024 3:21 PM CDT): -UA, RVP, CT head and CAP all negative -Waxes and wanes, (+) visual hallucinations -- no current hallucinations -Blood cultures NGTD, LVAD DL culture (+) MRSA -Discontinue broad spectrum abx and resume home suppressive amoxicillin/doxy -VPO for close monitoring due to confusion -Hold/avoid medications that increase risk for delirium -Check B12, folate, RPR -C/f dementia, consult neurology --> Work up would be outpatient, they made referral to [facility] [place], recommend discontinuing mirtazapine, avoiding home lorazepam and tramadol, if needed for sleep would recommend ramelteon or low dose trazodone; they will not plan to staff this inpatient but can reconsult them if patient's mental status is not improving or worsens -Lights on during day, OOBTC if safe, frequent reorientation, minimize interruptions in sleep -PT/OT/ST Assessment & Plan (08/08/2024 12:43 PM CDT): -UA, RVP, CT head and CAP all negative -Waxes and wanes, (+) visual hallucinations -Blood cultures NGTD, LVAD DL culture (+) MRSA -Continue broad spectrum abx for now (Vanc/Cefe) -VPO for close monitoring due to confusion -Hold/avoid medications that increase risk for delirium -Lights on during day, OOBTC if safe, frequent reorientation, minimize interruptions in sleep -PT/OT/ST Assessment & Plan (08/05/2024 9:41 AM CDT): -UA, RVP, CT head and CAP all negative -Waxes and wanes, (+) visual hallucinations -Cultures NGTD -Obtain LVAD DL culture and treat with empiric broad spectrum abx for now (Vanc/Cefe) -VPO for close monitoring due to confusion -Hold/avoid medications that increase risk for delirium -Lights on during day, OOBTC if safe, frequent reorientation, minimize interruptions in sleep -PT/OT/ST eval today Assessment & Plan (08/04/2024 4:24 PM CDT): -UA, RVP, CT head and CAP all negative -Waxes and wanes, (+) visual hallucinations -Cultures NGTD -Obtain LVAD DL culture and treat with empiric broad spectrum abx for now (Vanc/Cefe) -VPO for close monitoring due to confusion -Hold/avoid medications that increase risk for delirium -Lights on during day, OOBTC if safe, frequent reorientation, minimize interruptions in sleep Assessment & Plan (08/03/2024 7:36 PM CDT): -UA, RVP, CT head and CAP all negative -gentle hydration -treat hyperglycemia -VPO for overnight monitoring due to increased confusion Assessment & Plan (06/08/2024 2:50 PM GAS FITTER): New confusion and delirium 2-3 days prior to admission. Daughter reporting that over the past 3-4 months, patient has become weaker. He is having increased incontinence-spending more time in a depends at the assisted living center and less time socializing due to his being away. She states he is normally very cognitively intact but has been having panic episodes of delirium. Daughter was concerned about a UTI. 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 Driveline noted with new drainage and errythema (not noted at [facility] in Apr). 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 Daughter reporting that over the past 3-4 months, patient has become weaker. He is having increased incontinence-spending more time in a depends at the assisted living center and less time socializing due to his being away. She states he is normally very cognitively intact but has been having panic episodes of delirium. Daughter was concerned about a UTI. 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 Driveline noted with new drainage and errythema (not noted at [facility] in Dec). 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 Daughter reporting that over the past 3-4 months, patient has become weaker. He is having increased incontinence-spending more time in a depends at the assisted living center and less time socializing due to his being away. She states he is normally very cognitively intact but has been having panic episodes of delirium. Daughter was concerned about a UTI. 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 Driveline noted with new drainage and errythema (not noted at [facility] in Dec). -UA negative -Blood cultures with NGTD -CT head unremarkable for acute process -Wound culture with staph aureus -CT C/A/P notable for stranding to driveline -Continue ABX per ID recs -VPO and delirium precautions -PT/OT -Home assisted living facility says pt is too ill to return, pt's only option for intermission coordinator care is [facility]-referrals sent by Assessment & Plan (06/03/2024 10:58 AM GAS FITTER): New confusion and delirium 2-3 days prior to admission. Daughter reporting that over the past 3-4 months, patient has become weaker. He is having increased incontinence-spending more time in a depends at the assisted living center and less time socializing due to his being away. She states he is normally very cognitively intact but has been having panic episodes of delirium. Daughter was concerned about a UTI. 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 Driveline noted with new drainage and errythema (not noted at [facility] in Dec). -UA negative -Blood culture NGTD -CT head unremarkable for acute process -Wound culture with staph aureus -CT of CAP notable for stranding to driveline -Continue ABX per ID recs -VPO and delirium precautions -PT/OT -Home assisted living facility says pt is too ill to return, CM looking into SNF placement; May be able to reconsider given improvement in mental status and mobility improving. -Pt is now alert and oriented to person, place and day-mental status improved -continue delirium precautions Assessment & Plan (06/02/2024 10:07 AM GAS FITTER): New confusion and delirium 2-3 days prior to admission. Daughter reporting that over the past 3-4 months, patient has become weaker. He is having increased incontinence-spending more time in a depends at the assisted living center and less time socializing due to his being away. She states he is normally very cognitively intact but has been having panic episodes of delirium. Daughter was concerned about a UTI. 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 Driveline noted with new drainage and errythema (not noted at [facility] in Dec). -UA negative -Blood culture NGTD -CT head unremarkable for acute process -Wound culture with staph aureus -CT of CAP notable for stranding to driveline -Continue ABX per ID recs -VPO and delirium precautions -PT/OT -Home assisted living facility says pt is too ill to return, CM looking into SNF placement -Pt is now alert and oriented to person, place and day-mental status improved -continue delirium precautions Assessment & Plan (05/29/2024 12:59 PM GAS FITTER): New confusion and delirium for the past 2-3 days. Daughter reporting that over the past 3-4 months, patient has become weaker. He is having increased incontinence-spending more time in a depends at the assisted living center and less time socializing due to his being away. She states he is normally very cognitively intact but has been having panic episodes of delirium. Daughter was concerned about a UTI. 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 Driveline noted with new drainage and errythema (not noted at [facility] in Dec). -UA negative -Blood culture NGTD -CT head unremarkable for acute process -Wound culture with staph aureus -CT of CAP notable for stranding to driveline -Continue ABX per ID recs -VPO and delirium precautions -PT/OT -Home assisted living facility says pt is too ill to return, CM looking into SNF placement -Pt is now alert and oriented to person, place and day-mental status improved Assessment & Plan (05/28/2024 4:31 PM GAS FITTER): New confusion and delirium for the past 2-3 days. Daughter reporting that over the past 3-4 months, patient has become weaker. He is having increased incontinence-spending more time in a depends at the assisted living center and less time socializing due to his being away. She states he is normally very cognitively intact but has been having panic episodes of delirium. Daughter concerned about a UTI. 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 Driveline noted with new drainage and errythema (not noted at [facility] in dec). -UA negative -Blood culture NGTD -CT head unremarkable for acute process -Wound culture with staph aureus -CT of CAP notable for stranding to driveline -Continue IV vancomycin per ID recs -VPO and delirium precautions -PT/OT -Home assisted living facility says pt is too ill to return, may need SNF placement -Pt is now alert and oriented to person, place and day-mental status improved Assessment & Plan (05/27/2024 9:45 AM GAS FITTER): New confusion and delirium for the past 2-3 days. Daughter reporting that over the past 3-4 months, patient has become weaker. He is having increased incontinence-spending more time in a depends at the assisted living center and less time socializing due to his being away. She states he is normally very cognitively intact but has been having panic episodes of delirium. Daughter concerned about a UTI. 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 Driveline noted with new drainage and errythema (not noted at OV in dec). -UA neg, blood culture NGTD -CT head unremarkable for acute process -wound culture with staph aureus -CT of CAP notable for stranding to driveline -VPO and delirium precautions -PT/OT -home assisted living facility says pt is too ill to return, may need SNF placement -pt more alert and oriented today Assessment & Plan (05/26/2024 10:53 AM GAS FITTER): New confusion and delirium for the past 2-3 days. Daughter reporting that over the past 3-4 months, patient has become weaker. He is having increased incontinence-spending more time in a depends at the assisted living center and less time socializing due to his being away. She states he is normally very cognitively intact but has been having panic episodes of delirium. Daughter concerned about a UTI. 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 Driveline noted with new drainage and errythema (not noted at [facility] in dec). -UA neg, blood culture NGTD -CT head unremarkable for acute process -wound culture with Moderate Gram Positive Cocci -CT of CAP notable for stranding to driveline -VPO and delirium precautions -likely not able to return to assisted living; may need SNF placement -PT/OT Rash 05/25/2024 Assessment & Plan (06/05/2024 12:40 PM GAS FITTER): Macular-papular rash to angie area -Continue external urinary collection device -Leave groin open to air, exudry -Turn q 2hrs -Antifungal cream to rash Assessment & Plan (06/03/2024 11:15 AM GAS FITTER): Macular-papular rash to angie area -continue external urinary collection device -Leave groin open to air, exudry -Turn q 2hrs -Antifungal cream to rash Assessment & Plan (06/02/2024 10:32 AM GAS FITTER): Macular-papular rash to angie area -continue external urinary collection device -Leave groin open to air, exudry -Turn q 2hrs -Antifungal cream to rash Assessment & Plan (05/25/2024 2:52 PM GAS FITTER): Macular-papular rash to groin at diaper area -Place external urinary collection device -Leave groin open to air -Turn q 2hrs -Antifungal cream to rash Type 2 diabetes mellitus wit h other specified complication, with long-term current use of insulin 07/10/2023 Assessment & Plan (09/20/2024 9:58 AM CDT): Home: Lantus 14 units nightly and Lispro 3 units TID AC HgbA1c 9.5 -dose reduce to lantus 10 units with SSI -blood glucose levels stable Assessment & Plan (09/19/2024 11:12 AM CDT): Home: Lantus 14 units nightly and Lispro 3 units TID AC HgbA1c 9.5 -dose reduce to lantus 10 units with SSI -blood glucose levels stable Assessment & Plan (09/17/2024 7:16 AM CDT): Home: Lantus 14 units nightly and Lispro 3 units TID AC HgbA1c 9.5 -dose reduce to lantus 10 units with SSI -blood glucose levels stable Assessment & Plan (09/16/2024 10:25 AM CDT): Home: Lantus 14 units nightly and Lispro 3 units TID AC HgbA1c 9.5 -dose reduce to lantus 10 units with SSI -blood glucose levels stable Assessment & Plan (09/15/2024 9:59 AM CDT): Home: Lantus 14 units nightly and Lispro 3 units TID AC HgbA1c 9.5 -dose reduce to lantus 10 units with SSI -blood glucose levels stable Assessment & Plan (09/14/2024 11:23 AM CDT): Home: Lantus 14 units nightly and Lispro 3 units TID AC HgbA1c 9.5 -dose reduce to lantus 10 units with SSI -blood glucose levels stable Assessment & Plan (09/13/2024 7:59 AM CDT): Home: Lantus 14 units nightly and Lispro 3 units TID AC HgbA1c 9.5 -dose reduce to lantus 10 units with SSI Idiopathic thrombocytopenic purpura (ITP) 2022 Hypotension 05/22/2022 Assessment & Plan (05/27/2022 10:15 AM GAS FITTER): -Symptomatic hypotension 1/4 -S/p IV fluids with improvement -Losartan 25 mg and isosorbide d/c'd 1/ Assessment & Plan (05/26/2022 2:38 PM GAS FITTER): Symptomatic hypotension 1/4 S/p IV fluids Discontinue losartan to 25 mg and isosorbide 2/2 low BP Assessment & Plan (05/25/2022 10:23 AM GAS FITTER): Symptomatic hypotension 1/4 S/p IV fluids Holding losartan and isosorbide BP stable off anti-hypertensives Assessment & Plan (05/24/2022 11:19 AM GAS FITTER): Symptomatic hypotension 1/4 S/p IV fluids Holding losartan and isosorbide BP stable off anti-hypertensives Assessment & Plan (05/23/2022 4:42 PM GAS FITTER): Symptomatic hypotension 1/4 Received IV fluids Holding losartan and isosorbide BP stable off anti-hypertensives Assessment & Plan (05/22/2022 3:54 PM GAS FITTER): Symptomatic hypotension yesterday afternoon Received IV fluids Holding losartan and isosorbide BP improved today Delirium 05/19/2022 Assessment & Plan (05/31/2024 10:53 AM GAS FITTER): Improving Delirium precautions: -Keep lights on and shades up during the day. -Keep lights off, window shades down and TV off at night. -Avoid nocturnal interruptions unless patient is unstable. -If the patient wears glasses or hearing aids, please make sure they are being used during the day. -Please put sign on door and above bed announcing the patient is on sleep hygiene and delirium precautions. -Avoid overstimulation and provide frequent reorientation. -Get patient out of bed into a chair and keep awake during the day and transfer patient to a window bed if able. -Get AM labs before 11:00 PM or after 6:00 AM. -Avoid catheters and other invasive devices as able. -Avoid unnecessary opiates, benzodiazepines, and antihistamines. Assessment & Plan (05/25/2024 2:13 PM GAS FITTER): Delirium precautions: -Keep lights on and shades up during the day. -Keep lights off, window shades down and TV off at night. -Avoid nocturnal interruptions unless patient is unstable. -If the patient wears glasses or hearing aids, please make sure they are being used during the day. -Please put sign on door and above bed announcing the patient is on sleep hygiene and delirium precautions. -Avoid overstimulation and provide frequent reorientation. -Get patient out of bed into a chair and keep awake during the day and transfer patient to a window bed if able. -Get AM labs before 11:00 PM or after 6:00 AM. -Avoid catheters and other invasive devices as able. -Avoid unnecessary opiates, benzodiazepines, and antihistamines. Assessment & Plan (05/27/2022 10:17 AM GAS FITTER): -Confusion this admission - occurring mostly at night, improved after starting Seroquel nightly PRN -Head CT with no acute intracranial abnormality, interval worsening of the white matter disease and volume loss since 2016, nonspecific and likely in the setting of small vessel ischemic disease -Infectious workup unremarkable -Holding nightly gabapentin -Currently alert and oriented x 3 -Delerium precautions -VPO monitoring -Family and patient agreeable to inpatient rehab or SNF at time of discharge. Awaiting placement. Assessment & Plan (05/26/2022 8:06 AM GAS FITTER): Confusion this admission - occurring mostly at night, improved after starting Seroquel nightly PRN Head CT with no acute intracranial abnormality, interval worsening of the white matter disease and volume loss since 2016, nonspecific and likely in the setting of small vessel ischemic disease Infectious workup unremarkable Holding nightly gabapentin Currently alert and oriented x 3 Delerium precautions VPO monitoring Family and patient agreeable to inpatient rehab or SNF at time of discharge. Awaiting placement. Assessment & Plan (05/25/2022 10:22 AM GAS FITTER): Confusion this admission - occurring mostly at night, improved after starting Seroquel nightly PRN Head CT with no acute intracranial abnormality, interval worsening of the white matter disease and volume loss since 2016, nonspecific and likely in the setting of small vessel ischemic disease Infectious workup unremarkable Holding nightly gabapentin Currently alert and oriented x 3 Delerium precautions VPO monitoring Family and patient agreeable to inpatient rehab or SNF at time of discharge. Awaiting placement. Assessment & Plan (05/24/2022 11:18 AM GAS FITTER): Confusion this admission - occurring mostly at night, improved after starting Seroquel nightly PRN Head CT with no acute intracranial abnormality, interval worsening of the white matter disease and volume loss since 2016, nonspecific and likely in the setting of small vessel ischemic disease Infectious workup unremarkable Holding nightly gabapentin Currently alert and oriented x 3 Delerium precautions VPO monitoring Family and patient agreeable to inpatient rehab or SNF at time of discharge. Awaiting placement. Assessment & Plan (05/23/2022 4:41 PM GAS FITTER): Confusion this admission - occurring mostly at night, improved after starting Seroquel nightly PRN Head CT with no acute intracranial abnormality, interval worsening of the white matter disease and volume loss since 2016, nonspecific and likely in the setting of small vessel ischemic disease Infectious workup unremarkable Holding nightly gabapentin Currently alert and oriented x 3 this morning--improved Delerium precautions VPO monitoring Family and patient agreeable to inpatient rehab or SNF at time of discharge. Awaiting placement. Assessment & Plan (05/22/2022 3:50 PM GAS FITTER): Confusion this admission which happens mostly at night, improved after starting Seroquel nightly PRN Head CT with no acute intracranial abnormality, interval worsening of the white matter disease and volume loss since 2016, nonspecific and likely in the setting of small vessel ischemic disease Infectious workup unremarkable Holding nightly gabapentin Currently alert and oriented x 3 this morning, patient reports he slept much better the last 2 nights and he is less confused today Delerium precautions VPO monitoring Family and patient agreeable to inpatient rehab or SNF at time of discharge. Awaiting placement. Assessment & Plan (05/21/2022 2:19 PM GAS FITTER): Confusion this admission which happens mostly at night, improved after starting Seroquel nightly PRN Head CT with no acute intracranial abnormality, interval worsening of the white matter disease and volume loss since 2016, nonspecific and likely in the setting of small vessel ischemic disease Infectious workup unremarkable Holding nightly gabapentin Currently alert and oriented x 3 this morning, patient reports he slept much better the last 2 nights and he is less confused today Delerium precautions VPO monitoring Assessment & Plan (05/20/2022 9:54 AM GAS FITTER): Confusion overnight-given Haldol 2 mg IV x 1 and Seroquel 25 mg PO x 1 with some improvement Currently alert and oriented x 3 this morning Infectious workup-RVP, CXR, UA Holding nightly gabapentin Delerium precautions VPO monitoring Gastrointestinal hemorrhage, unspecified gastrointestinal hemorrhage type 05/14/2022 PLMD (periodic limb movement disorder) Assessment & Plan (02/18/2024 12:36 PM CDT): The patient will continue with Requip 1 mg p.o. Q bedtime. I did refill the patient's Neurontin 300 mg p.o. Q bedtime. Assessment & Plan (11/03/2022 3:04 PM CDT): Due to the continued symptoms, I have increased the Requip to 1.5 mg nightly. The patient will continue with gabapentin 600 mg nightly. Assessment & Plan (12/10/2021 12:10 PM CDT): Will continue with gabapentin 900 mg and Requip 1 mg at bedtime. Assessment & Plan (06/10/2021 12:16 PM GAS FITTER): The patient will continue with Neurontin 900 mg and Requip 1 mg p.o. at bedtime. Assessment & Plan (12/06/2020 12:20 PM CDT): The patient will continue with Neurontin 900 mg and Requip 1 mg p.o. at bedtime. Obesity (BMI 30.0-34.9) 06/21/2020 Assessment & Plan (06/26/2020 9:48 AM GAS FITTER): Weight relatively stable at home - continue heart healthy, carbohydrate consistent diet Assessment & Plan (06/26/2020 9:27 AM GAS FITTER): Weight relatively stable at home - continue heart healthy, carbohydrate consistent diet Assessment & Plan (06/23/2020 12:23 PM GAS FITTER): Weight relatively stable at home Assessment & Plan (06/21/2020 1:13 PM GAS FITTER): Weight relatively stable at home Chronic systolic heart failure 05/30/2020 Assessment & Plan (06/26/2020 9:47 AM GAS FITTER): - continue IV furosemide bid for now, losartan, metoprolol - I & O, daily weight, 2g sodium diet Assessment & Plan (06/26/2020 9:26 AM GAS FITTER): Appears euvolemic on exam - continue oral furosemide, losartan, metoprolol - I & O, daily weight, 2g sodium diet Assessment & Plan (06/25/2020 8:19 AM GAS FITTER): Appears euvolemic on exam - continue oral furosemide, losartan, metoprolol - I & O, daily weight, 2g sodium diet Assessment & Plan (06/01/2020 11:10 AM GAS FITTER): 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 -exam remains/hemodynamically stable -work-up of elevated LDH as above -continue asa/statin and coumadin/heparin gtt; INR falling so increase coumadin to 5/6mg -continue imdur/metoprolol and cozaar -PRN lasix (has not used recently) -strict I & O/daily weights -tele Assessment & Plan (05/31/2020 12:37 PM GAS FITTER): 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 -exam remains/hemodynamically stable -work-up of elevated LDH as above -continue asa/statin and coumadin/heparin gtt -continue imdur/metoprolol and cozaar -PRN lasix (has not used recently) -strict I & O/daily weights -tele Assessment & Plan (05/30/2020 4:15 PM GAS FITTER): 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 -exam euvolemic and hemodynamically stable -work-up of elevated LDH as above -continue asa/statin and coumadin; anticipate starting heparin gtt -continue imdur/metoprolol and cozaar -PRN lasix (has not used recently) -strict I & O/daily weights -tele Left ventricular assist device (LVAD) complicati on 04/10/2020 Assessment & Plan (06/26/2020 9:47 AM GAS FITTER): Presented with recurrent acute symptomatic blood loss anemia in the setting of increasing aspirin 81 mg to daily dosing (had been on 3 times weekly dosing) - Recent admission with elevated LDH without evidence of LVAD dysfunction - No LVAD alarms or change in flows; no dark urine - Improved LDH and therapeutic INR is reassuring for lack of or progression of thrombus - INR goal 2-2.5 - continue heparin drip until INR therapeutic Assessment & Plan (06/26/2020 9:26 AM GAS FITTER): Presented with recurrent acute symptomatic blood loss anemia in the setting of increasing aspirin 81 mg to daily dosing (had been on 3 times weekly dosing) - Recent admission with elevated LDH without evidence of LVAD dysfunction - No LVAD alarms or change in flows; no dark urine - Improved LDH and therapeutic INR is reassuring for lack of or progression of thrombus - INR goal 2-2.5 - continue heparin drip until INR therapeutic Assessment & Plan (06/25/2020 8:16 AM GAS FITTER): Presented with recurrent acute symptomatic blood loss anemia in the setting of increasing aspirin 81 mg to daily dosing (had been on 3 times weekly dosing) - Recent admission with elevated LDH without evidence of LVAD dysfunction - No LVAD alarms or change in flows; no dark urine - Improved LDH and therapeutic INR is reassuring for lack of or progression of thrombus - INR goal 2-2.5 - continue heparin drip until INR therapeutic Assessment & Plan (06/22/2020 1:21 PM GAS FITTER): Presented with recurrent acute symptomatic blood loss anemia in the setting of increasing aspirin 81 mg to daily dosing (had been on 3 times weekly dosing) Recent admission with elevated LDH without evidence of LVAD dysfunction No LVAD alarms or change in flows; no dark urine Improved LDH and therapeutic INR is reassuring for lack of or progression of thrombus INR goal 2-2.5, holding warfarin in setting of GI bleed Heparin drip bleeding controlled Assessment & Plan (06/21/2020 1:08 PM GAS FITTER): Presented with recurrent acute symptomatic blood loss anemia in the setting of increasing aspirin 81 mg to daily dosing Recent admission with elevated LDH without evidence of LVAD dysfunction No LVAD alarms or change in flows; no dark urine Improved LDH and therapeutic INR is reassuring for lack of or progression of thrombus INR goal 2-2.5, holding warfarin in setting of GI bleed Heparin drip when INR<2 Assessment & Plan (06/01/2020 11:08 AM GAS FITTER): Chronic systolic end stage ischemic cardiomyopathy --s/p HM II LVAD in 2014 now admitted with significantly elevated LDH (2423) and 2 day hx of being fatigued;no LVAD alarms or change in flows; no dark urine -abnormal LDH worrisome for LVAD thrombosis; Infection/malignancy less likely as CXR unremarkable and BC NGTD -exam remains euvolemic and LVAD without alarms (interrogated) -LDH in 900s here initially 939-->939-->855--prior baseline in 700s. Anticipate continuing heparin gtt until closer to baseline -ramp echo study showed that LVAD is functioning appropriately (AV closed and mild AR which was present before) -CT imaging did not show LVAD Thrombus (pt did have 4mm RUL nodule so will need f/u CT in 6-12 mos) -continue ASA (increased to daily dosing ) and coumadin/heparin gtt -continue amixocillin for chronic suppression (E. facaelis bacteremia in 2017) -tele Assessment & Plan (05/31/2020 12:34 PM GAS FITTER): Chronic systolic end stage ischemic cardiomyopathy --s/p HM II LVAD in 2014 now admitted with significantly elevated LDH (2423) and 2 day hx of being fatigued;no LVAD alarms or change in flows; no dark urine -abnormal LDH worrisome for LVAD thrombosis; Infection/malignancy less likely as CXR unremarkable and BC NGTD -exam remains euvolemic and LVAD without alarms (interrogated) -LDH in 900s here--prior baseline in 700s -ramp echo study today and may need CT with contrast to r/o pump thrombosis -continue ASA (increased to daily dosing ) and coumadin/heparin gtt--if evidence of thrombus consider addition of persantine -trend LDH -continue amixocillin for chronic suppression (E. 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 now admitted with significantly elevated LDH (2423) and 2 day hx of being fatigued;no LVAD alarms or change in flows; no dark urine -abnormal LDH worrisome for LVAD thrombosis; Infection/malignancy less likely -exam euvolemic and hemodynamically stable -will check baseline labs including cultures and CXR -interrogate LVAD and check ramp echo study to ensure appropriate LVAD fxn -if ramp unrevealing, may need CT with contrast to r/o pump thrombosis -anticipate continuing ASA/coumadin and starting heparin gtt; if evidence of thrombus consider addition of persantine -continue amixocillin for chronic suppression (E. facaelis bacteremia in 2016) -tele Assessment & Plan (04/11/2020 1:24 PM GAS FITTER): Had been feeling well, but outpatient labs concerning for pump thrombosis Recent LDH baseline 800's; OP labs revealed levels [id number] No LVAD alarms, no symptoms of CHF Repeat LDH here 735 Hemodynamically stable and euvolemic on exam LVAD interrogation without power spikes or low flow alarms Ramp TTE study to day Heparin drip Continue warfarin (goal prior to admission 1.8-2.2 due to GI bleeding) Consider CTA to eval outflow graft if ramp TTE concerning for pump thrombosis Follow closely Assessment & Plan (04/11/2020 11:18 AM GAS FITTER): Had been feeling well, but outpatient labs concerning for pump thrombosis Recent LDH baseline 800's; OP labs revealed levels [id number] No LVAD alarms, no symptoms of CHF Repeat LDH here 735 Hemodynamically stable and euvolemic on exam LVAD interrogation without power spikes or low flow alarms Ramp TTE study to day Heparin drip Continue warfarin (goal prior to admission 2.8-2.2 due to GI bleeding) Consider CTA to eval outflow graft if ramp TTE concerning for pump thrombosis Follow closely Cardiac device, implant, or graft infection or inflammation - E. Facaelis bacteremia 02/201707/17/2019 Assessment & Plan (05/27/2022 10:18 AM GAS FITTER): -Continue amoxicillin for chronic suppression Assessment & Plan (05/26/2022 8:05 AM GAS FITTER): -Continue amoxicillin for chronic suppression Assessment & Plan (05/25/2022 10:22 AM GAS FITTER): -Continue amoxicillin for chronic suppression Assessment & Plan (05/24/2022 11:18 AM GAS FITTER): -Continue amoxicillin for chronic suppression Assessment & Plan (05/21/2022 2:14 PM GAS FITTER): -Continue amoxicillin for chronic suppression Assessment & Plan (05/17/2022 2:22 PM GAS FITTER): -Continue amoxicillin for chronic suppression Assessment & Plan (05/16/2022 1:37 PM GAS FITTER): -Continue amoxicillin for chronic suppression Assessment & Plan (05/15/2022 12:29 PM GAS FITTER): -Continue amoxicillin for chronic suppression Assessment & Plan (05/14/2022 3:36 PM GAS FITTER): Continue amoxicillin for chronic suppression Assessment & Plan (06/26/2020 9:47 AM GAS FITTER): - Continue amixocillin for chronic suppression (E. facaelis bacteremia in 2016) Assessment & Plan (06/26/2020 9:25 AM GAS FITTER): - Continue amixocillin for chronic suppression (E. facaelis bacteremia in 2016) Assessment & Plan (06/25/2020 8:15 AM GAS FITTER): - Continue amixocillin for chronic suppression (E. facaelis bacteremia in 2016) Assessment & Plan (06/22/2020 1:23 PM GAS FITTER): Continue amixocillin for chronic suppression (E. facaelis bacteremia in 2016) Assessment & Plan (06/21/2020 1:08 PM GAS FITTER): Continue amixocillin for chronic suppression (E. facaelis bacteremia in 2016) Assessment & Plan (04/11/2020 11:37 AM GAS FITTER): Continue chronic suppressive amoxicillin Assessment & Plan (07/22/2019 12:14 PM GAS FITTER): Chronic and stable -continue amoxicillin for suppression Assessment & Plan (07/21/2019 10:44 AM GAS FITTER): Chronic and stable -continue amoxicillin for suppression Assessment & Plan (07/20/2019 11:25 AM GAS FITTER): Chronic and stable -continue amoxicillin for suppression Assessment & Plan (07/19/2019 10:00 AM GAS FITTER): Chronic and stable -continue amoxicillin for suppression Assessment & Plan (07/18/2019 12:49 PM GAS FITTER): Chronic and stable -continue amoxicillin for suppression Assessment & Plan (07/17/2019 10:48 AM GAS FITTER): Chronic and stable Continue amoxicillin for suppression Stage 2 chronic kidney disease 07/14/2019 Assessment & Plan (06/26/2020 9:47 AM GAS FITTER): Stable renal function on admission - remains at baseline (1.18) Assessment & Plan (06/26/2020 9:25 AM GAS FITTER): Stable renal function on admission - remains at baseline (1.18) Assessment & Plan (06/25/2020 8:15 AM GAS FITTER): Stable renal function on admission - remains at baseline Assessment & Plan (06/22/2020 1:23 PM GAS FITTER): Stable renal function on admission, currently at baseline Assessment & Plan (06/21/2020 2:37 AM GAS FITTER): Stable renal function on admission, currently at baseline Assessment & Plan (06/01/2020 11:09 AM GAS FITTER): -renal fxn stable Assessment & Plan (05/31/2020 12:36 PM GAS FITTER): -await admission labs Assessment & Plan (05/30/2020 4:02 PM GAS FITTER): -await admission labs Assessment & Plan (07/22/2019 12:14 PM GAS FITTER): Cr baseline 0.9-1.1 -Mild RENETTA likely related to anemia and CHF -Cr 1.33 today -losartan resumed Continue to follow Assessment & Plan (07/21/2019 10:30 AM GAS FITTER): Cr baseline 0.9-1.1 -Mild RENETTA likely related to anemia and CHF -Cr 1.37 today -losartan resumed -cont to monitor Assessment & Plan (07/20/2019 11:23 AM GAS FITTER): Cr baseline 0.9-1.1 -Mild RENETTA likely related to anemia and CHF -Cr stable ~ 1.2 -losartan resumed -cont to monitor Assessment & Plan (07/19/2019 10:10 AM GAS FITTER): Cr baseline 0.9-1.1 -Mild RENETTA likely related to anemia and CHF -Cr slightly improved today, 1.27 -holding losartan -cont to monitor Assessment & Plan (07/18/2019 12:43 PM GAS FITTER): Cr baseline 0.9-1.1 -Mild REENTTA likely related to anemia and CHF -Cr slightly improved today, 1.27 -holding losartan -cont to monitor Assessment & Plan (07/17/2019 10:40 AM GAS FITTER): Cr baseline 0.9-1.1 Mild RENETTA likely related to anemia and CHF Received losartan this am- will hold in am pending labs Assessment & Plan (07/15/2019 12:45 PM GAS FITTER): Stage 3 CKD -renal fxn stable and within baseline range -follow closely with diuresis Assessment & Plan (07/14/2019 11:21 AM GAS FITTER): Stage 3 CKD -it is unclear if elevated Cr this am (1.15-->1.42) is accurate given modest diuresis -re-check BMP Enterococcus faecalis infection 07/06/2019 Encounter for long-term (current) use of antibio tics 07/06/2019 Discharge planning issues 05/24/2018 Assessment & Plan (05/24/2018 11:01 AM GAS FITTER): Patient would like physical therapy to come to his home on discharge. Will order physical therapy consult and home health for home physical therapy Acute blood loss anemia 05/17/2018 Assessment & Plan (05/27/2022 10:23 AM GAS FITTER): -H/O recurrent GI bleeds on Octreotide at home -Admitted from OSH with melena and drop in Hgb from 15.0 on 04/28/22 to 8.3 on admission -Acute blood loss anemia due to GI bleed in setting of warfarin induced coagulopathy -Received 1U PRBC prior to transfer and a total of 4 units here -Gastroenterology consulted -Tagged RBC scan positive with extravasation in the left upper quadrant, likely in jejunal small bowel loops. 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/p 1 clip -Hemodynamically stable, Hgb/HCT stable -New INR goal lowered to 1.7-2.2 due to recurrent GI bleed -Discontinued aspirin -Continue octreotide as outpatient -no further bleeding issues Assessment & Plan (05/26/2022 1:51 PM GAS FITTER): H/O recurrent GI bleeds on Octreotide at home Admitted from OSH with melena and drop in Hgb from 15.0 on 04/28/22 to 8.3 on admission Acute blood loss anemia due to GI bleed in setting of warfarin induced coagulopathy Received 1U PRBC prior to transfer and a total of 4 units here -Gastroenterology consulted -Tagged RBC scan positive with extravasation in the left upper quadrant, likely in jejunal small bowel loops. 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/p 1 clip Hemodynamically stable, Hgb/HCT stable -New INR goal lowered to 1.7-2.2 due to recurrent GI bleed -Discontinued aspirin -Continue octreotide as outpatient -no further bleeding issues Assessment & Plan (05/25/2022 10:22 AM GAS FITTER): H/O recurrent GI bleeds on Octreotide at home Admitted from OSH with melena and drop in Hgb from 15.0 on 04/28/22 to 8.3 on admission Acute blood loss anemia due to GI bleed in setting of warfarin induced coagulopathy Received 1U PRBC prior to transfer and a total of 4 units here -Gastroenterology consulted -Tagged RBC scan positive with extravasation in the left upper quadrant, likely in jejunal small bowel loops. 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/p 1 clip Hemodynamically stable, Hgb/HCT stable -New INR goal lowered to 1.7-2.2 due to recurrent GI bleed -Discontinued aspirin -Continue octreotide as outpatient -no further bleeding issues Assessment & Plan (05/24/2022 11:18 AM GAS FITTER): H/O recurrent GI bleeds on Octreotide at home Admitted from OSH with melena and drop in Hgb from 15.0 on 04/28/22 to 8.3 on admission Acute blood loss anemia due to GI bleed in setting of warfarin induced coagulopathy Received 1U PRBC prior to transfer and a total of 4 units here -Gastroenterology consulted -Tagged RBC scan positive with extravasation in the left upper quadrant, likely in jejunal small bowel loops. 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/p 1 clip Hemodynamically stable, Hgb/HCT stable -New INR goal lowered to 1.7-2.2 due to recurrent GI bleed -Discontinued aspirin -Continue octreotide as outpatient -no further bleeding issues Assessment & Plan (05/23/2022 4:39 PM GAS FITTER): H/O recurrent GI bleeds on Octreotide at home Admitted from OSH with melena and drop in Hgb from 15.0 on 04/28/22 to 8.3 on admission Acute blood loss anemia due to GI bleed in setting of warfarin induced coagulopathy Received 1U PRBC prior to transfer and a total of 4 units here -Gastroenterology consulted -Tagged RBC scan positive with extravasation in the left upper quadrant, likely in jejunal small bowel loops. 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/p 1 clip Hemodynamically stable, Hgb/HCT stable -New INR goal lowered to 1.7-2.2 due to recurrent GI bleed -Discontinued aspirin -Continue octreotide as outpatient Assessment & Plan (05/22/2022 3:45 PM GAS FITTER): H/O recurrent GI bleeds on Octreotide at home Admitted from OSH with melena and drop in Hgb from 15.0 on 04/28/22 to 8.3 on admission Acute blood loss anemia due to GI bleed in setting of warfarin induced coagulopathy Received 1U PRBC prior to transfer and a total of 4 units here -Gastroenterology consulted -Tagged RBC scan positive with extravasation in the left upper quadrant, likely in jejunal small bowel loops. 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/p 1 clip Hemodynamically stable, Hgb currently 8.1 (likley diluted- Received IV fluids 04/20 Repeat CBC this afternoon -New INR goal lowered to 1.7-2.2 due to recurrent GI bleed -Discontinued aspirin -Continue octreotide as outpatient Assessment & Plan (05/21/2022 2:22 PM GAS FITTER): H/O recurrent GI bleeds on Octreotide at home Admitted from OSH with melena and drop in Hgb from 15.0 on 04/28/22 to 8.3 on admission Acute blood loss anemia due to GI bleed in setting of warfarin induced coagulopathy Received 1U PRBC prior to transfer and a total of 4 units here -Gastroenterology consulted -Tagged RBC scan positive with extravasation in the left upper quadrant, likely in jejunal small bowel loops. 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/p 1 clip -Hemodynamically stable, Hgb currently 9.3 -INR subtherapeutic at 1.5 (INR goal lowered to 1.7-2.2 due to recurrent GI bleed) -Continue warfarin 5mg daily and heparin gtt until INR is therapeutic -Discontinue aspirin completely at discharge -Continue octreotide as outpatient -Currently awaiting therapeutic INR for discharge -PT recommending SNF, OT recommending inpatient rehab facility -Patient and family prefer to go home with home health for PT/OT/SN-referrals being sent Assessment & Plan (05/20/2022 9:56 AM GAS FITTER): H/O recurrent GI bleeds on Octreotide at home Admitted from OSH with melena and drop in Hgb from 15.0 on 04/28/22 to 8.3 on admission Acute blood loss anemia due to GI bleed in setting of warfarin induced coagulopathy Received 1U PRBC prior to transfer and a total of 4 units here -Hemodynamically stable -Gastroenterology consulted -Tagged RBC scan positive with extravasation in the left upper quadrant, likely in jejunal small bowel loops. 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/p 1 clip -INR subtherapeutic at 1.3 (INR goal lowered to 1.7-2.2 2/2 recurrent GI bleed) -Continue warfarin and heparin gtt until INR is therapeutic -Discontinue aspirin completely at discharge -Continue octreotide as outpatient Assessment & Plan (05/16/2022 2:05 PM GAS FITTER): H/O recurrent GI bleeds on Octreotide at home Admitted from OSH with melena and drop in Hgb from 15.0 on 04/28/22 to 8.3 on admission Acute blood loss anemia due to GI bleed in setting of warfarin induced coagulopathy Received 1U PRBC prior to transfer and a total of 4 units here -Hemodynamically stable, Hgb currently 8.6 -Gastroenterology consulted -Tagged RBC scan positive with extravasation in the left upper quadrant, likely in jejunal small bowel loops. 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 -NPO for push enteroscopy today with GI -Continue IV PPI -Continue octreotide -Q12 hour CBCs -Maintain active Type & Cross -Maintain 2 large bore IVs -Holding warfarin, aspirin and home antihypertensives Assessment & Plan (05/15/2022 12:30 PM GAS FITTER): H/O recurrent GI bleeds on Octreotide at home Admitted from OSH with melena and drop in Hgb from 15.0 on 04/28/22 to 8.3 on admission Acute blood loss anemia due to GI bleed in setting of warfarin induced coagulopathy Received 1U PRBC prior to transfer Hemodynamically stable Consulted GI, planning for tagged RBC scan today Continue IV PPI Continue octreotide Q12 hour CBCs Maintain active Type & Cross Maintain 2 large bore IVs Holding warfarin, aspirin and home antihypertensives Assessment & Plan (05/14/2022 3:40 PM GAS FITTER): H/O recurrent GI bleeds on Octreotide at home Admitted from OSH with melena and drop in Hgb from 15 on 04/28/22 to 8.3 on admission Acute blood loss anemia due to GI bleed in setting of warfarin induced coagulopathy Received 1U PRBC prior to transfer Hemodynamically stable Repeat CBC with appropriate response to 1U of PRBC Consulted GI- requesting a tagged RBC scan- order placed Continue IV PPI Q12 hour CBC Maintain active Type and Cross Maintain 2 large bore IVs Hold warfarin and antihypertensives Assessment & Plan (05/24/2018 11:00 AM GAS FITTER): Admitted with hemoglobin 6.3 transfused 3 units PRBC . GI work up included small bowel enteroscopy which inconclusive and no source of bleeding noted Colonoscopy completed 05/19/17 and several polyps removed Hemoglobin stable on heparin drip . Today 10 hemoglobin continue with pantoprazole 40 mg bid Assessment & Plan (05/20/2018 9:10 AM GAS FITTER): Admitted with hemoglobin 6.3 transfused 3 units PRBC . GI work up included small bowel enteroscopy which inconclusive and no source of bleeding noted Colonoscopy completed 05/19/17 and several polyps removed Hemoglobin stable on heparin drip . Today hemoglobin 9.3 continue with pantoprazole 40 mg bid Assessment & Plan (05/18/2018 11:19 AM GAS FITTER): Admitted with GI bleeding . Small bowel enteroscopy completed on 05/14/18 and no source of bleeding noted. Plan c-scope 05/19/17 --bowel prep, NPO p MN --s/p 3units during hospitalization Assessment & Plan (05/17/2018 11:19 AM GAS FITTER): Admitted with GI bleeding . Small bowel enteroscopy completed on 05/14/18 and no source of bleeding noted. Noted on am labs hemoglobin down to 7.4 plan to transfuse one unit PRBC today. Called GI and informed them of one black stool yesterday. Will plan on colonoscopy on Thursday05/19/12 Will need to stop coumadin for procedure on 05/18/17, will need to be clear liquids on 05/18/17 Continue pantoprazole 40 mg bid Will need to be NPO on 05/19/18 for colonoscopy Iron deficiency anemia 05/17/2018 Assessment & Plan (02/18/2024 12:36 PM CDT): The patient continues on iron supplement. Assessment & Plan (11/03/2022 3:04 PM CDT): Will continue with iron supplementation Assessment & Plan (12/10/2021 12:09 PM CDT): Will continue with iron supplementation every 3 times per week. Assessment & Plan (06/10/2021 12:15 PM GAS FITTER): The patient will continue to follow up with the LVAD physician in regards to iron and ferritin levels. Assessment & Plan (12/06/2020 12:19 PM CDT): The patient will continue to follow up with the LVAD physician in regards to iron and ferritin levels. Assessment & Plan (05/24/2018 10:58 AM GAS FITTER): Total Iron : 38 transferrin saturation 9 Iron sucrose Given this admission Assessment & Plan (05/20/2018 9:15 AM GAS FITTER): Total Iron : 38 transferrin saturation 9 Iron sucrose Given this admission Assessment & Plan (05/17/2018 11:26 AM GAS FITTER): Total Iron : 38 transferrin saturation 9 Iron sucrose ordered Gastrointestinal hemorrhage with melena 05/13/20 18 Overview (05/14/2018): Added automatically from request for surgery [id number] Assessment & Plan (06/02/2024 10:08 AM GAS FITTER): History of gastrointestinal bleeding post VAD implant requiring transfusions and small-bowel enteroscopy with hemostatic clipping in July 2013 -INR goal is now 1.8-2.2, INR 1.7 this am, will continue heparin bridge with PTT goal 46-70 -Octreotide [id number], last given 05/26 Assessment & Plan (05/25/2024 2:21 PM GAS FITTER): History of gastrointestinal bleeding post VAD implant requiring transfusions and small-bowel enteroscopy with hemostatic clipping in July 2013 -INR goal is now 1.8-2.2, INR is 1.3, will do heparin bridge with PTT goal 46-70 -Octreotide [id number], due now Atrial flutter 05/06/2018 Assessment & Plan (05/07/2018 10:39 AM GAS FITTER): Hx A flutter in past, has since been in SR and weaned off amio -no recent arrhythmia per but pt noted to be in aflutter upon admit -cont metoprolol and coumadin -telemetry Assessment & Plan (05/06/2018 12:44 PM GAS FITTER): Hx A flutter in past, has since been in SR and weaned off amio -no recent arrhythmia per but pt noted to be in aflutter upon admit -cont metoprolol and coumadin -telemetry Hypothyroidism 05/06/2018 Assessment & Plan (06/08/2024 2:47 PM GAS FITTER): TSH 3.67 -Continue home levothyroxine 100mcg daily Assessment & Plan (06/06/2024 9:57 AM GAS FITTER): TSH 3.67 -Continue home levothyroxine 100mcg daily Assessment & Plan (06/05/2024 12:35 PM GAS FITTER): TSH 3.67 -Continue home levothyroxine 100mcg daily Assessment & Plan (06/03/2024 11:05 AM GAS FITTER): TSH 3.67 -Continue home levothyroxine 100mcg daily Assessment & Plan (06/02/2024 10:17 AM GAS FITTER): TSH 3.67 -Continue home levothyroxine 100mcg daily Assessment & Plan (05/29/2024 1:01 PM GAS FITTER): TSH 3.67 -Continue home levothyroxine 100mcg daily Assessment & Plan (05/28/2024 4:32 PM GAS FITTER): TSH 3.67 -Continue home levothyroxine 100mcg daily Assessment & Plan (05/27/2024 8:50 AM GAS FITTER): TSH 3.67 -cont home synthroid Assessment & Plan (05/25/2024 2:53 PM GAS FITTER): TSH 3.67 -cont home synthroid Assessment & Plan (06/26/2020 9:46 AM GAS FITTER): Euthyroid during prior admission - Continue Synthroid 100 mcg QAM Assessment & Plan (06/26/2020 9:25 AM GAS FITTER): Euthyroid during prior admission - Continue Synthroid 100 mcg QAM Assessment & Plan (06/25/2020 8:14 AM GAS FITTER): Euthyroid during prior admission - Continue Synthroid 100 mcg QAM Assessment & Plan (06/21/2020 1:12 PM GAS FITTER): Euthyroid during prior admission -Continue Synthroid 100 mcg QAM Assessment & Plan (06/01/2020 11:08 AM GAS FITTER): -check TFTS -continue levothyroxine Assessment & Plan (05/31/2020 12:36 PM GAS FITTER): -check TFTS -continue levothyroxine Assessment & Plan (05/30/2020 4:11 PM GAS FITTER): -check TFTS -continue levothyroxine Assessment & Plan (07/15/2019 12:45 PM GAS FITTER): -continue synthroid at current dose -TFTs appropriate Assessment & Plan (07/14/2019 11:17 AM GAS FITTER): -continue synthroid at current dose -TFTs appropriate Assessment & Plan (07/13/2019 5:57 PM GAS FITTER): -check TFTs -continue synthroid at current dose Assessment & Plan (05/06/2018 12:44 PM GAS FITTER): Check TSH -cont synthroid GIB (gastrointestinal bleeding) 05/06/2018 Assessment & Plan (08/15/2024 10:20 AM CDT): -no current issues -INR goal as elsewhere -continue home octreotide LAR 20 mg IM every 30 days Assessment & Plan (08/14/2024 4:53 PM CDT): -no current issues -INR goal as elsewhere -continue home octreotide LAR 20 mg IM every 30 days Assessment & Plan (08/12/2024 10:02 AM CDT): -no current issues -INR goal as elsewhere -continue home octreotide LAR 20 mg IM every 30 days Assessment & Plan (08/11/2024 11:01 AM CDT): -no current issues -INR goal as elsewhere -continue home octreotide LAR 20 mg IM every 30 days Assessment & Plan (08/10/2024 11:04 AM CDT): -no current issues -INR goal as elsewhere -continue home octreotide LAR 20 mg IM every 30 days Assessment & Plan (08/09/2024 3:21 PM CDT): -no current issues -INR goal as elsewhere -continue home octreotide LAR 20 mg IM every 30 days Assessment & Plan (06/08/2024 2:47 PM GAS FITTER): History of gastrointestinal bleeding post VAD implant requiring transfusions and small-bowel enteroscopy with hemostatic clipping in July 2013 -No evidence bleeding on admit -Hgb 13.4 -Iron level 46 -Continue octreotide Q 30 days (last given on 05/26) -Continue BID PPI -INR goal is 1.8-2.2 (currently 1.88) -Continue warfarin 4 mg daily Assessment & Plan (06/05/2024 12:35 PM GAS FITTER): History of gastrointestinal bleeding post VAD implant requiring transfusions and small-bowel enteroscopy with hemostatic clipping in July 2013 -No evidence bleeding on admit -Hgb 13.4 -Iron level 46 -Continue octreotide Q 30 days (last given on 05/26) -Continue BID PPI -INR goal is 1.8-2.2 (currently 1.84) -Continue warfarin 3 mg daily Assessment & Plan (06/03/2024 11:15 AM GAS FITTER): History of gastrointestinal bleeding post VAD implant requiring transfusions and small-bowel enteroscopy with hemostatic clipping in July 2013 -No evidence bleeding on admit -Hgb 12.6 -Iron level 46 -Continue octreotide Q 30 days (last given on 05/26) -Continue BID PPI -INR goal is 1.8-2.2 (currently 2.45) -continue warfarin, reduce to 3 mg Assessment & Plan (06/02/2024 10:17 AM GAS FITTER): History of gastrointestinal bleeding post VAD implant requiring transfusions and small-bowel enteroscopy with hemostatic clipping in July 2013 -No evidence bleeding on admit -Hgb 12.6 -Iron level 46 -Continue octreotide Q 30 days (last given on 05/26) -Continue BID PPI -INR goal is 1.8-2.2 (currently 1.9) -d/c heparin gtt, continue warfarin Assessment & Plan (05/29/2024 11:01 AM GAS FITTER): History of gastrointestinal bleeding post VAD implant requiring transfusions and small-bowel enteroscopy with hemostatic clipping in July 2013 -No evidence bleeding on admit -Hgb stable (13.8) -Iron level 46 -Continue octreotide Q 30 days (last given on 05/26) -Continue BID PPI -INR goal is 1.8-2.2 (currently 1.42) -Continue warfarin and heparin gtt Assessment & Plan (05/28/2024 4:27 PM GAS FITTER): History of gastrointestinal bleeding post VAD implant requiring transfusions and small-bowel enteroscopy with hemostatic clipping in July 2013 -No evidence bleeding on admit -INR goal is 1.8-2.2 (currently 1.67) -Continue warfarin and heparin gtt -Continue octreotide Q 30 days (last given on 05/26) -Iron level 46 -Continue BID PPI Assessment & Plan (05/27/2024 9:48 AM GAS FITTER): History of gastrointestinal bleeding post VAD implant requiring transfusions and small-bowel enteroscopy with hemostatic clipping in July 2013 -no evidence bleeding on admit -INR goal is 1.8-2.2 -continue warfarin and heparin gtt -Octreotide [id number], given 05/26 -Iron level 46 -continue BID PPI Assessment & Plan (05/26/2024 10:39 AM GAS FITTER): History of gastrointestinal bleeding post VAD implant requiring transfusions and small-bowel enteroscopy with hemostatic clipping in July 2013 -no evidence bleeding on admit -INR goal is 1.8-2.2 -continue warfarin and heparin gtt -Octreotide [id number], ordered for 05/26 -Iron level 46 -continue BID PPI Assessment & Plan (05/07/2018 10:44 AM GAS FITTER): Hx GIB treated with 3 hemoclips -no further bleeding -restart ASA 81mg -cont coumadin and PPI -monitor CBC Assessment & Plan (05/06/2018 12:49 PM GAS FITTER): Hx GIB treated with 3 hemoclips 2014 -no further bleeding -restart ASA 81mg -cont coumadin and PPI -monitor CBC Chronic back pain 07/11/2016 Hyperlipidemia 09/07/2015 Assessment & Plan (06/26/2020 9:46 AM GAS FITTER): - continue atorvastatin - heart healthy diet Assessment & Plan (06/26/2020 9:22 AM GAS FITTER): - continue atorvastatin - heart healthy diet Assessment & Plan (06/25/2020 8:12 AM GAS FITTER): - continue atorvastatin Assessment & Plan (06/21/2020 2:35 AM GAS FITTER): -Continue Lipitor Assessment & Plan (06/01/2020 11:08 AM GAS FITTER): -continue lipitor Assessment & Plan (05/31/2020 12:35 PM GAS FITTER): -continue lipitor Assessment & Plan (05/30/2020 4:45 PM GAS FITTER): -continue lipitor Hypertension 09/07/2015 Insomnia with sleep apnea 11/22/2014 Overview (08/21/2016): Insomnia with sleep apnea Anticoagulant long-term use 09/05/2014 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 Patient appears compensated and euvolemic. INR 1.14 on presentation with goal 1.8-2.2. -INR therapeutic. Continue warfarin -continue metoprolol -monthly octreotide 20mg IM given 5/2 -accurate I&O, monitor on telemetry, daily weights Assessment & Plan (09/19/2024 12:36 PM CDT): End stage ICM s/p HMII 2014 Well functioning VAD without alarms. Patient appears compensated and euvolemic. INR 1.14 on presentation with goal 1.8-2.2. -INR therapeutic. Continue warfarin -continue metoprolol -monthly octreotide 20mg IM given 5/2 -accurate I&O, monitor on telemetry, daily weights -INR 2.74 Assessment & Plan (09/17/2024 7:17 AM CDT): End stage ICM s/p HMII 2014 Well functioning VAD without alarms. Patient appears compensated and euvolemic. INR 1.14 on presentation with goal 1.8-2.2. -INR therapeutic. Continue warfarin -continue metoprolol -monthly octreotide 20mg IM given 5/2 -accurate I&O, monitor on telemetry, daily weights Assessment & Plan (09/16/2024 11:06 AM CDT): End stage ICM s/p HMII 2014 Well functioning VAD without alarms. Patient appears compensated and euvolemic. INR 1.14 on presentation with goal 1.8-2.2. -INR 1.8, DC heparin gtt, continue warfarin -continue metoprolol -monthly octreotide 20mg IM given 09/16 -accurate I&O, monitor on telemetry, daily weights Assessment & Plan (09/15/2024 9:59 AM CDT): End stage [facility] s/p [facility] 2014 Well functioning VAD without alarms. Patient appears compensated and euvolemic. INR 1.14 on presentation with goal 1.8-2.2. -continue heparin gtt, continue warfarin -continue metoprolol -accurate I&O, monitor on telemetry, daily weights Assessment & Plan (09/14/2024 11:23 AM CDT): End stage [facility] s/p [facility] 2014 Well functioning VAD without alarms. Patient appears compensated and euvolemic. INR 1.14 on presentation with goal 1.8-2.2. -INR 1.5, on heparin gtt, continue warfarin 6mg -continue metoprolol -accurate I&O, monitor on telemetry, daily weights Assessment & Plan (09/13/2024 10:55 AM CDT): End stage [facility] s/p [facility] 2014 Well functioning VAD without alarms. Patient appears compensated and euvolemic. INR 1.14 on presentation with goal 1.8-2.2. -INR 1.1, start heparin gtt, continue warfarin -continue metoprolol -accurate I&O, monitor on telemetry, daily weights Assessment & Plan (08/15/2024 10:21 AM CDT): -LVAD functioning appropriately with no alarms -Warm, euvolemic on exam -Continue metoprolol XL -Discontinue Jardiance given uncontrolled DM -Admission INR slightly below therapeutic range, currently therapeutic -INR goal 1.8-2.2, check daily -Warfarin 6 mg Mondays and 5 mg -Telemetry, strict I&O, daily weights Assessment & Plan (08/14/2024 4:53 PM CDT): -LVAD functioning appropriately with no alarms -Warm, euvolemic on exam -Continue metoprolol XL -Discontinue Jardiance given uncontrolled DM -Admission INR slightly below therapeutic range, currently therapeutic -INR goal 1.8-2.2, check daily -Warfarin 6 mg Mondays and 5 mg ROW -Telemetry, strict I&O, daily weights Assessment & Plan (08/12/2024 10:03 AM CDT): -LVAD functioning appropriately with no alarms -Warm, euvolemic on exam -Continue metoprolol XL -Discontinue Jardiance given uncontrolled DM -Admission INR slightly below therapeutic range, currently therapeutic -INR goal 1.8-2.2, check daily -Warfarin 6 mg Thudays and 5 mg ROW -Telemetry, strict I&O, daily weights Assessment & Plan (08/11/2024 11:02 AM CDT): -LVAD functioning appropriately with no alarms -Warm, euvolemic on exam -Continue metoprolol XL -Discontinue Jardiance given uncontrolled DM -Admission INR slightly below therapeutic range, currently therapeutic -INR goal 1.8-2.2, check daily -Warfarin 6 mg Mondays and 5 mg ROW -Telemetry, strict I&O, daily weights Assessment & Plan (08/10/2024 11:06 AM CDT): -LVAD functioning appropriately with no alarms -Warm, euvolemic on exam -Continue metoprolol XL -Discontinue Jardiance given uncontrolled DM -Admission INR slightly below therapeutic range, currently therapeutic -INR goal 1.8-2.2, check daily -Warfarin 6 mg Thudays and 5 mg ROW -Telemetry, strict I&O, daily weights Assessment & Plan (08/09/2024 3:17 PM CDT): -LVAD functioning appropriately with no alarms -Warm, euvolemic on exam -Continue metoprolol XL -Discontinue Jardiance given uncontrolled DM -Admission INR slightly below therapeutic range, currently therapeutic -INR goal 1.8-2.2, check daily -Warfarin 6 mg Thudays and 5 mg ROW -Telemetry, strict I&O, daily weights Assessment & Plan (08/08/2024 12:45 PM CDT): -LVAD functioning appropriately with no alarms -Warm, euvolemic on exam -Continue Jardiance and metoprolol XL -Admission INR slightly below therapeutic range, currently therapeutic -INR goal 1.8-2.2, check daily -Warfarin 6 mg daily -Telemetry, strict I&O, daily weights Assessment & Plan (08/05/2024 9:51 AM CDT): -LVAD functioning appropriately with no alarms -Warm, euvolemic on exam -Continue Jardiance and metoprolol XL -Admission INR slightly below therapeutic range -INR goal 1.8-2.2, check daily -Warfarin 5 mg daily -Telemetry, strict I&O, daily weights Assessment & Plan (08/04/2024 4:20 PM CDT): -LVAD functioning appropriately with no alarms -Warm, euvolemic on exam -Continue Jardiance and metoprolol XL -Admission INR slightly below therapeutic range -INR goal 1.8-2.2, check daily -Warfarin 5 mg daily -Telemetry, strict I&O, daily weights Assessment & Plan (08/03/2024 7:42 PM CDT): -admission INR subtherapeutic -increase Warfarin to 5mg with daily INR -telemetry -euvolemic, no diuretics at this time Assessment & Plan (06/08/2024 2:46 PM GAS FITTER): S/P DT HeartMate 2 LVAD 05/2014, Home GDMT: jardiance/metoprolol. Last echo 12/2023 EF 33% -Hemodynamically stable, euvolemic on exam -LVAD functioning appropriately without alarms -INR 1.88 (INR goal 1.8-2.2) -continue warfarin 4 mg daily ( current INR 1.88 ) -No aspirin 2/2 hx GIB -Continue empagliflozin 10mg daily and metoprolol XL 50mg daily -Strict I & Os, daily standing weights, 2G sodium diet Assessment & Plan (06/07/2024 10:38 AM GAS FITTER): S/P DT HeartMate 2 LVAD 05/2014, Home GDMT: [email or web address]/metoprolol. Last echo 12/2023 EF 33% -Hemodynamically stable, euvolemic on exam -LVAD functioning appropriately without alarms -INR 1.62 (INR goal 1.8-2.2) -warfarin reduced on 06/03 for INR 2.42 now INR dropped to 1.62 will discuss with clinical pharmacist -No aspirin 2/2 hx GIB -Continue empagliflozin 10mg daily and metoprolol XL 50mg daily -Strict I & Os, daily standing weights, 2G sodium diet Assessment & Plan (06/05/2024 12:40 PM GAS FITTER): S/P DT HeartMate 2 LVAD 05/2014, Home GDMT: jardiance/metoprolol. Last echo 12/2023 EF 33% -Hemodynamically stable, euvolemic on exam -LVAD functioning appropriately without alarms -INR 1.84 (INR goal 1.8-2.2) -Reduced warfarin 3 mg daily -No aspirin 2/2 hx GIB -Continue empagliflozin 10mg daily and metoprolol XL 50mg daily -Strict I & Os, daily standing weights, 2G sodium diet Assessment & Plan (06/03/2024 11:15 AM GAS FITTER): S/P DT HeartMate 2 LVAD 05/2014, Home GDMT: jardiance/metoprolol. Last echo 12/2023 EF 33% -Hemodynamically stable, euvolemic on exam -LVAD functioning appropriately without alarms -INR 2.45(INR goal 1.8-2.2) -Reduced warfarin 3 mg daily -No aspirin 2/2 hx GIB -Continue empagliflozin 10mg daily and metoprolol XL 50mg daily -Strict I & Os, daily standing weights, 2G sodium diet Assessment & Plan (06/02/2024 10:32 AM GAS FITTER): S/P DT HeartMate 2 LVAD 05/2014, Home GDMT: jardiance/metoprolol. Last echo 12/2023 EF 33% -Hemodynamically stable, euvolemic on exam -LVAD functioning appropriately without alarms -INR 1.9(INR goal 1.8-2.2) -Continue warfarin 5mg daily -No aspirin 2/2 hx GIB -Continue empagliflozin 10mg daily and metoprolol XL 50mg daily -Strict I & Os, daily standing weights, 2G sodium diet Assessment & Plan (05/29/2024 10:56 AM GAS FITTER): S/P DT HeartMate 2 LVAD 05/2014, Home GDMT: jardiance/metoprolol. Last echo 12/2023 EF 33% -Hemodynamically stable, euvolemic on exam -LVAD functioning appropriately without alarms -INR 1.42 (INR goal 1.8-2.2) -Continue warfarin 4mg daily -Continue heparin bridge with goal PTT 46-70 -No aspirin 2/2 hx GIB -Continue empagliflozin 10mg daily and metoprolol XL 50mg daily -Strict I & Os, daily standing weights, 2G sodium diet Assessment & Plan (05/28/2024 4:31 PM GAS FITTER): S/P DT HeartMate 2 LVAD 05/2014, Home GDMT: jardiance/metoprolol. Last echo 12/2023 EF 33% -Hemodynamically stable, euvolemic on exam -LVAD functioning appropriately without alarms -INR 1.6 (INR goal 1.8-2.2) -Continue warfarin 4mg daily -Continue heparin bridge with goal PTT 46-70 -No aspirin 2/2 hx GIB -Continue empagliflozin, metoprolol XL -Strict I & Os, daily standing weights, 2G sodium diet Assessment & Plan (05/27/2024 9:45 AM GAS FITTER): S/P DT HeartMate 2 LVAD 05/2014, Home GDMT: jardiance/metoprolol. Last echo 12/2023 EF 33% -Hemodynamically stable, euvolemic on exam -LVAD functioning appropriately without alarms -INR subtherapeutic 1.3 on admit (goal 1.8-2.2), Heparin bridge with goal PTT 46-70 -Continue warfarin -No aspirin 2/2 hx GIB -Continue empagliflozin, metoprolol XL -Strict I & Os, daily standing weights, 2G sodium diet Assessment & Plan (05/26/2024 10:54 AM GAS FITTER): S/P DT HeartMate 2 LVAD 05/2014, Home GDMT: jardiance/metoprolol. Last echo 12/2023 EF 33% -Hemodynamically stable, euvolemic on exam -LVAD functioning appropriately without alarms -INR subtherapeutic 1.3 on admit (goal 1.8-2.2), Heparin bridge with goal PTT 46-70 -Continue warfarin -No aspirin 2/2 hx GIB -Continue empagliflozin, metoprolol XL -Strict I & Os, daily standing weights, 2G sodium diet Assessment & Plan (05/27/2022 10:14 AM GAS FITTER): -Hemodynamically stable, euvolemic on exam -LVAD functioning appropriately without alarms -INR therapeutic 2.0 (1.7-2.2) -Continue warfarin 6mg daily -No aspirin upon discharge -Continue empagliflozin -Discontinue losartan 25 mg -Continue metoprolol XL -Strict I & Os, daily standing weights, 2G sodium diet -Telemetry monitoring Assessment & Plan (05/26/2022 2:39 PM GAS FITTER): Hemodynamically stable, euvolemic on exam LVAD functioning appropriately without alarms INR subtherapeutic 1.6 (New INR goal of 1.7-2.2) Discontinue heparin drip as INR is Therapeutic today Continue warfarin 6mg daily No aspirin upon discharge Continue empagliflozin Discontinue losartan 25 mg Continue metoprolol XL Strict I & Os, daily standing weights, 2G sodium diet Telemetry monitoring Assessment & Plan (05/25/2022 10:23 AM GAS FITTER): Hemodynamically stable, euvolemic on exam LVAD functioning appropriately without alarms INR subtherapeutic 1.6 (New INR goal of 1.7-2.2) Heparin drip until INR therapeutic Continue warfarin to 6mg daily No aspirin upon discharge Continue empagliflozin Holidng losartan and metoprolol XL due to hypotension Strict I & Os, daily standing weights, 2G sodium diet Telemetry monitoring Assessment & Plan (05/24/2022 11:19 AM GAS FITTER): Hemodynamically stable, euvolemic on exam LVAD functioning appropriately without alarms INR subtherapeutic 1.6 (New INR goal of 1.7-2.2) Heparin drip until INR therapeutic Continue warfarin to 6mg daily No aspirin upon discharge Continue empagliflozin Holidng losartan and metoprolol XL due to hypotension Strict I & Os, daily standing weights, 2G sodium diet Telemetry monitoring Assessment & Plan (05/23/2022 4:40 PM GAS FITTER): Hemodynamically stable, euvolemic on exam LVAD functioning appropriately without alarms INR subtherapeutic 1.6 (New INR goal of 1.7-2.2) Heparin drip until INR therapeutic Continue warfarin to 6mg daily No aspirin upon discharge Continue empagliflozin Holidng losartan and metoprolol XL due to hypotension Strict I & Os, daily standing weights, 2G sodium diet Telemetry monitoring Assessment & Plan (05/22/2022 3:55 PM GAS FITTER): Hemodynamically stable, euvolemic on exam LVAD functioning appropriately without alarms INR pending (New INR goal of 1.7-2.2) Continue warfarin to 5mg daily No aspirin upon discharge Continue empagliflozin Holidng losartan and metoprolol XL due to hypotension Strict I & Os, daily standing weights, 2G sodium diet Telemetry monitoring Assessment & Plan (05/21/2022 2:10 PM GAS FITTER): Hemodynamically stable, euvolemic on exam LVAD functioning appropriately without alarms INR 1.5 today (INR goal of 1.7-2.2) Continue warfarin to 5mg daily and heparin gtt No aspirin upon discharge Continue losartan, metoprolol XL, empagliflozin Strict I & Os, daily standing weights, 2G sodium diet Telemetry monitoring Assessment & Plan (05/20/2022 9:51 AM GAS FITTER): Hemodynamically stable, euvolemic on exam LVAD functioning appropriately without alarms INR 1.3 today (INR goal of 1.7-2.2) Continue warfarin and heparin gtt No aspirin upon discharge Continue losartan and metoprolol Strict I & Os, daily standing weights, 2 G sodium diet Telemetry monitoring Assessment & Plan (05/16/2022 1:36 PM GAS FITTER): Euvolemic on exam No LVAD alarms INR currently 2.0 (INR goal 2.0-2.5) Holding warfarin for GI bleed Holding home losartan and metoprolol XL for GI Bleed Monitor I/Os, Daily weights Telemetry Assessment & Plan (05/15/2022 12:28 PM GAS FITTER): Euvolemic on exam No LVAD alarms INR supratherapeutic at 2.9 (INR goal 2.0-2.5) Holding warfarin for GI bleed Holding home losartan and metoprolol XL for GI Bleed Monitor I/Os, Daily weights Telemetry Assessment & Plan (05/14/2022 3:35 PM GAS FITTER): Euvolemic on exam No LVAD alarms INR therapeutic with goal 2.0-2.5 Holding warfarin for GI bleed Holding antihypertensives for GI Bleed Monitor I/Os, Daily weights Telemetry Assessment & Plan (06/26/2020 9:46 AM GAS FITTER): Complication management as above - LVAD appears to be functioning normally without alarms - INR 1.6, continue heparin bridge until INR therapeutic - warfarin 5mg nightly Assessment & Plan (06/26/2020 9:24 AM GAS FITTER): Complication management as above - LVAD appears to be functioning normally without alarms - INR 1.6, continue heparin bridge until INR therapeutic - warfarin 5mg nightly Assessment & Plan (06/25/2020 8:14 AM GAS FITTER): Complication management as above - LVAD appears to be functioning normally without alarms - INR 1.5, continue heparin bridge until INR therapeutic Assessment & Plan (06/22/2020 1:23 PM GAS FITTER): Complication management as above No LVAD alarms Holding aspirin and warfarin as above Appears euvolemic on exam Given IV furosemide this am post blood transfusion and iron infusion Will resume home furosemide in am Continue statin, Imdur 30 mg, metoprolol 50 mg, and Losartan 50 mg daily -Strict I & O/daily weights -Continuous telemetry Assessment & Plan (06/21/2020 1:10 PM GAS FITTER): Complication management as above No LVAD alarms Holding aspirin and warfarin as above Appears euvolemic on exam Holding home furosemide due to active GI Bleed Continue statin, Imdur 30 mg, metoprolol 50 mg, and Losartan 50 mg daily Low threshold to hold afterload if concern of acute bleed -Strict I & O/daily weights -Continuous telemetry Assessment & Plan (04/11/2020 1:24 PM GAS FITTER): Complication management as above Euvolemic on exam; hemodynamically stable Continue home losartan, isosorbide, metoprolol, and furosemide Anticoagulation plan as noted above Off aspirin due to recurrent GI bleed Monitor I/Os, daily weights, telemetry Assessment & Plan (04/11/2020 11:34 AM GAS FITTER): Complication management as above Euvolemic on exam; hemodynamically stable Continue home losartan, isosorbide, metoprolol, and furosemide Anticoagulation plan as noted above Off aspirin due to recurrent GI bleed, discussing need to re-challenge Monitor I/Os, daily weights, telemetry Assessment & Plan (07/22/2019 12:11 PM GAS FITTER): Presented with volume overload in setting of anemia and blood transfusion -treated for acute on chronic CHF with IV diuresis -good response to diuretics- weight down 5kg from admission -transitioned to oral diuretics - continue furosemide 20 mg BID -Appears euvolemic on exam -LVAD appears to be functioning appropriately and drive line unremarkable -echo earlier this month showed intermittent AV closure, normal RV, moderately decreased LV fxn and good LVAD fxn -continue losartan, isosrbide, and metoprolol -INR subtherapeutic -continue heparin drip until INR therapeutic (goal decreased to 1.8-2.2) -warfarin resumed 07/17 - Continue 5mg daily -I&Os, daily weights, telemetry Assessment & Plan (07/21/2019 10:35 AM GAS FITTER): Presented with volume overload in setting of anemia -treated for acute on chronic CHF with IV diuresis -good response to diuretics- weight down 5kg from admission -transitioned to oral diuretics - continue furosemide 20 mg BID -appears near euvolemic on exam -LVAD appears to be functioning appropriately and drive line unremarkable -echo earlier this month showed intermittent AV closure, normal RV, moderately decreased LV fxn and good LVAD fxn -continue losartan, isosrbide, and metoprolol -INR subtherapeutic -continue heparin drip until INR therapeutic (goal decreased to 1.8-2.2) -warfarin resumed 07/17 - 8mg given yesterday, cont 5mg daily -I&Os, daily weights, telemetry Assessment & Plan (07/20/2019 11:25 AM GAS FITTER): Presented with volume overload in setting of anemia -treated for acute on chronic CHF with IV diuresis -good response to diuretics- weight down 5kg from admission -transitioned to oral diuretics - continue furosemide 20 mg BID -appears near euvolemic on exam -LVAD appears to be functioning appropriately and drive line unremarkable -echo earlier this month showed intermittent AV closure, normal RV, moderately decreased LV fxn and good LVAD fxn -continue losartan, isosrbide, and metoprolol -INR subtherapeutic -continue heparin drip until INR therapeutic (goal decreased to 1.8-2.2) -warfarin resumed 07/17 - will give 8mg today and then plan for 5mg daily -I&Os, daily weights, telemetry Assessment & Plan (07/19/2019 10:06 AM GAS FITTER): Presented with volume overload in setting of anemia -treated for acute on chronic CHF with IV diuresis -good response to diuretics- weight down 5kg from admission -transitioned to oral diuretics - continue furosemide 20 mg BID -appears euvolemic on exam -LVAD appears to be functioning appropriately and drive line unremarkable -echo earlier this month showed intermittent AV closure, normal RV, moderately decreased LV fxn and good LVAD fxn -continue losartan, isosrbide, and metoprolol -INR subtherapeutic -continue heparin drip until INR therapeutic -warfarin resumed 07/17 -I&Os, daily weights, telemetry Assessment & Plan (07/18/2019 12:47 PM GAS FITTER): Presented with volume overload in setting of anemia -treated for acute on chronic CHF with IV diuresis -good response to diuretics- weight down 5kg from admission -transitioned to oral diuretics - continue furosemide 20 mg BID -appears euvolemic on exam -LVAD appears to be functioning appropriately and drive line unremarkable -echo earlier this month showed intermittent AV closure, normal RV, moderately decreased LV fxn and good LVAD fxn -continue losartan, isosrbide, and metoprolol -INR subtherapeutic -continue heparin drip until INR therapeutic -will likely resume warfarin today -I&Os, daily weights, telemetry Assessment & Plan (07/17/2019 10:36 AM GAS FITTER): Presented with volume overload in setting of anemia Treated for acute on chronic CHF with IV diuresis Good response to diuretics- weight down 5kg from admission Appears euvolemic today Transitioned to oral diuretics - continue furosemide 20 mg BID LVAD appears to be functioning appropriately and drive line unremarkable Echo earlier this month showed intermittent AV closure, normal RV, moderately decreased LV fxn and good LVAD fxn Continue losartan, isosrbide, and metoprolol INR subtherapeutic Continue heparin drip until INR therapeutic Hold warfarin for GI bleed Monitor I/Os, Daily weights Assessment & Plan (07/15/2019 12:43 PM GAS FITTER): 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 -pt presented with volume overload in setting of anemia -LVAD appears to be functioning appropriately and drive line unremarkable -recent echo earlier this month showed intermittent AV closure, normal RV, moderately decreased LV fxn and good LVAD fxn -good response to diuretics but remains volume overloaded--continue BID IV lasix -continue losartan/imdur and metoprolol -resume lower dose coumadin -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 -PT consult -tele Assessment & Plan (07/14/2019 11:18 AM GAS FITTER): 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 -pt presents with volume overload in setting of anemia -LVAD appears to be functioning appropriately and drive line unremarkable -recent echo earlier this month showed intermittent AV closure, normal RV, moderately decreased LV fxn and good LVAD fxn -continue losartan/imdur and metoprolol -will gently diurese (lasix 40mg IV BID) -hold coumadin 2/2 GI bleed -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 -PT consult -tele Assessment & Plan (07/13/2019 6:10 PM GAS FITTER): 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 -pt presents with volume overload in setting of anemia -LVAD appears to be functioning appropriately and drive line unremarkable -recent echo earlier this month showed intermittent AV closure, normal RV, moderately decreased LV fxn and good LVAD fxn -continue asa/losartan/imdur and metoprolol -will gently diurese -hold coumadin 2/2 GI bleed -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 -PT consult -tele Assessment & Plan (05/24/2018 10:58 AM GAS FITTER): -exam remains euvolemic on current regimen -H/H remain stable post GI bleed today hemoglobin 9.0/30.1 -continue hep/coumadin until INR therapeutic : today INR 1.79 . INR goal 2.0 - warfarin 7mg nightly -continue suppressive amoxicillin (hx bacteremia ) Assessment & Plan (05/23/2018 11:32 AM GAS FITTER): -exam remains euvolemic on current regimen -H/H remain stable post GI bleed -continue hep/coumadin until INR therapeutic -c/w warfarin 7mg nightly -continue suppressive amoxicillin (hx bacteremia ) Assessment & Plan (05/21/2018 12:06 PM GAS FITTER): -exam remains euvolemic on current regimen -H/H remain stable post GI bleed -continue hep/coumadin until INR therapeutic -will increase coumadin to 6mg nightly -no asa 2/2 recurrent GI bleeds -continue suppressive amoxicillin (hx bacteremia ) Assessment & Plan (05/20/2018 9:13 AM GAS FITTER): euvolemic on exam daily weight stable at 209 On heparin drip and bridging for theraputic INR previously Off coumadin for GI work -up continue losartan 100 mg daily, metoprolol 50 mg daily, isosorbide mononitrate 30 mg daily, , furosemide 20 mg daily -continue suppressive amoxicillin (hx bacteremia ) Monitor daily labs Assessment & Plan (05/19/2018 9:58 AM GAS FITTER): -exam stable today -colonoscopy today -continue lasix and follow volume status closely -continue cozaar/nitrates/metoprolol and lipitor -continue suppressive amoxicillin (hx bacteremia ) Assessment & Plan (05/17/2018 11:12 AM GAS FITTER): Euvolimic on exam. - will continue heparin drip Warfarin 5 mg daily . Team will need to discontinue warfarin for colonoscopy on Thursday05/19/18 Today INR 1.91 Continue furosemide 20 mg daily , imdur 30 mg daily and losartan 100 mg daily Assessment & Plan (05/16/2018 10:16 AM GAS FITTER): Euvolimic on exam. -INR 1.6, resumed warfarin and ASA - cont with heparin gtt -continue atorvastatin, metoprolol, losartan -continue amoxicillin for chronic suppressive therapy (bacteremia at time of LVAD implant) -I&Os, daily weights, telemetry Assessment & Plan (05/14/2018 1:12 PM GAS FITTER): -mildly volume overloaded on exam -INR 1.95, holding warfarin -stop ASA -Lasix as needed with transfusions -continue atorvastatin, metoprolol, losartan -continue amoxicillin for chronic suppressive therapy (bacteremia at time of LVAD implant) -I&Os, daily weights, telemetry Assessment & Plan (05/07/2018 10:39 AM GAS FITTER): 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 -denies LVAD alarms; has not taken lasix in 2-3 months -good response to dose of IV lasix yesterday but still mildly volume overloaded (acute on chronic systolic CHF) -will give additional dose of lasix today and likely needs daily diuretic as OP -echo today -continue asa/statin/nitrates/metoprolol and cozaar -continue amoxicillin for Enterococcal BSI suppression -accurate I&O, monitor on telemetry, daily weights Assessment & Plan (05/06/2018 1:31 PM GAS FITTER): 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 - Active bleed found 07/2014 upper endoscopy in proximal jejunum status post 3 hemoclips - Admitted 2/ with fatigue, weakness and acute normocytic anemia - Noted to have Hgb 7.4 (prior 12) - Received 2U PRBC - H/H now stable (9.0) - no BM past 2 days, will add colace bid at patient's request - S/p Infed - Small bowel enteroscopy without bleeding source 2 - low dose aspirin resumed 3X/week, however, patient has reservations about taking and will discuss with Dr. Beach - PPI po BID - Follow serial CBCs - Resumed warfarin 2/, continue heparin gtt until therapeutic INR (goal PTT 60- 75, normogram adjusted) Assessment & Plan (06/26/2020 9:24 AM GAS FITTER): Recently admitted with elevated LDH- aspirin increased to daily (had been on aspirin 81mg three times weekly) Has undergone several upper and lower endoscopies. - Active bleed found 07/2014 upper endoscopy in proximal jejunum status post 3 hemoclips - Admitted 2/3 with fatigue, weakness and acute normocytic anemia - Noted to have Hgb 7.4 (prior 12) - Received 2U PRBC - H/H now stable (9.0) - no BM past 2 days, will add colace bid at patient's request - S/p Infed - Small bowel enteroscopy without bleeding source 5 - low dose aspirin resumed 3X/week, however, patient has reservations about taking and will discuss with Dr. Beach - PPI po BID - Follow serial CBCs - Resumed warfarin 2/5, continue heparin gtt until therapeutic INR (goal PTT 60- 75, normogram adjusted) Assessment & Plan (06/25/2020 8:10 AM GAS FITTER): Recently admitted with elevated LDH- aspirin increased to daily (had been on aspirin 81mg three times weekly) Has undergone several upper and lower endoscopies. - Active bleed found 07/2014 upper endoscopy in proximal jejunum status post 3 hemoclips - Admitted 2/ with fatigue, weakness and acute normocytic anemia - Noted to have Hgb 7.4 (prior 12) - Received 2U PRBC - H/H now stable - no BM past 2 days, will add colace bid at patient's request - S/p Infed - Small bowel enteroscopy without bleeding source 2/ - Holding aspirin- may consider restarting only 3 times weekly as he was tolerating that dose previously - PPI po BID - Follow serial CBCs - Resumed warfarin 2/, continue heparin gtt until therapeutic INR (goal PTT 60- 75, normogram adjusted) Assessment & Plan (06/22/2020 1:20 PM GAS FITTER): Recently admitted with elevated LDH- aspirin increased to daily (had been on aspirin 81mg three times weekly) Has undergone several upper and lower endoscopies. Active bleed found 07/2014 upper endoscopy in proximal jejunum status post 3 hemoclips Admitted 2/ with fatigue, weakness and acute normocytic anemia Noted to have Hgb 7.4 (prior 12) Received 2U PRBC H/H now stable Melena yesterday- no BMs today GI consulted - plan upper endoscopy today Infed given yesterday Holding aspirin- may consider restarting only 3 times weekly as he was tolerating that dose previously Holding warfarin for now, may be able to restart tonight pending endoscopy PPI IV BID Follow serial CBCs Assessment & Plan (06/21/2020 1:01 PM GAS FITTER): Recently admitted with elevated LDH- aspirin increased to daily (had been on aspirin 81mg three times weekly) Admitted overnight with fatigue, weakness and acute normocytic anemia Noted to have Hgb 7.4 (prior 12) Received 2U PRBC Had guaiac positive, dark tarry stool this am Plan: Serial CBCs Check iron stores and replete if indicated Hold aspirin and warfarin for now Has undergone several upper and lower endoscopies. Active bleed found 07/2014 upper endoscopy in proximal jejunum status post 3 hemoclips Will hold off on GI consult for now PPI IV BID Assessment & Plan (07/22/2019 12:12 PM GAS FITTER): History of GI bleed x3 (2014, 2015, 2017) -presented 07/13 with acute on chronic anemia and CHF/fatigue symptoms -presumed to be acute blood loss anemia (GI source) secondary to warfarin induced coagulopathy (severe iron deficiency also noted) -remains hemodynamically stable -received 1 units PRBC 07/14 with appropriate Hgb response -received IV iron (Infed) 07/15 -patency capsule placed 07/15, KUB from 07/16 with capsule in duodenem -push enteroscopy 07/17 without evidence of bleeding -AC restarted, new INR goal 1.8-2.2 INR 1.6 today -Hgb stable -GI signed off Assessment & Plan (07/21/2019 10:45 AM GAS FITTER): History of GI bleed x3 (2014, 2015, 2017) -presented 07/13 with acute on chronic anemia and CHF/fatigue symptoms -presumed to be acute blood loss anemia (GI source) secondary to warfarin induced coagulopathy (severe iron deficiency also noted) -remains hemodynamically stable -received 1 units PRBC 07/14 with appropriate Hgb response -received IV iron (Infed) 07/15 -patency capsule placed 07/15, KUB from 07/16 with capsule in duodenem -push enteroscopy 07/17 without evidence of bleeding -AC restarted, new INR goal 1.8-2.2 -Hgb stable -GI signed off Assessment & Plan (07/20/2019 11:26 AM GAS FITTER): History of GI bleed x3 (2014, 2015, 2017) -presented 07/13 with acute on chronic anemia and CHF/fatigue symptoms -presumed to be acute blood loss anemia (GI source) secondary to warfarin induced coagulopathy (severe iron deficiency also noted) -remains hemodynamically stable -received 1 units PRBC 07/14 with appropriate Hgb response -received IV iron (Infed) 07/15 -patency capsule placed 07/15, KUB from 07/16 with capsule in duodenem -push enteroscopy 07/17 without evidence of bleeding -AC restarted yesterday evening, new INR goal 1.8-2.2 -GI signed off Assessment & Plan (07/19/2019 9:54 AM GAS FITTER): History of GI bleed x3 (2014, 2015, 2017) -presented 07/13 with acute on chronic anemia and CHF/fatigue symptoms -presumed to be acute blood loss anemia (GI source) secondary to warfarin induced coagulopathy (severe iron deficiency also noted) -remains hemodynamically stable -received 1 units PRBC 07/14 with appropriate Hgb response -received IV iron (Infed) 07/15 -patency capsule placed 07/15, KUB from 07/16 with capsule in duodenem -push enteroscopy 07/17 without evidence of bleeding -AC restarted yesterday evening, new INR goal 1.8-2.2 -GI following Assessment & Plan (07/18/2019 1:38 PM GAS FITTER): History of GI bleed x3 (2014, 2015, 2017) -presented 07/13 with acute on chronic anemia and CHF/fatigue symptoms -presumed to be acute blood loss anemia (GI source) secondary to warfarin induced coagulopathy (severe iron deficiency also noted) -remains hemodynamically stable -received 1 units PRBC 07/14 with appropriate Hgb response -received IV iron (Infed) 07/15 -patency capsule placed 07/15, KUB from 07/16 with capsule in duodenem -push enteroscopy today without evidence of bleeding -will resume heparin/warfarin -GI following -may need lower INR goal at discharge Assessment & Plan (07/17/2019 10:28 AM GAS FITTER): History of GI bleed x3 (2014, 2015, 2017) Presented 07/13 with acute on chronic anemia and CHF/fatigue symptoms Presumed to be acute blood loss anemia (GI source) secondary to warfarin induced coagulopathy. Nawaf noted severe iron deficiency Remains hemodynamically stable Received 1 units PRBC 07/14 with appropriate Hgb response Received IV iron (Infed) 07/15 Patency capsule placed 07/15 KUB from with capsule in stomach Repeat KUB now GI Following Plan for push enteroscopy on 07/17 if INR <2 Will hold warfarin tonight May need lower INR goal at discharge Assessment & Plan (07/15/2019 12:41 PM GAS FITTER): Pt presented with new onset anemia and CHF/fatigue sx---presumed to be acute blood loss anemia (GI source) 2/2 coumadin coagulopathy. Pt also has severe iron deficiency -pt remains hemodynamically stable -s/p 2 units PRBC yesterday with appropriate Hgb response -IV iron today -Pt to have dummy capsule placed today and then GI plans to drop real capsule and do push enteroscopy on 07/17 -guaiac all stools -will continue low dose coumadin 4mg and follow INR -may need lowered INR goal at discharge Assessment & Plan (07/14/2019 11:16 AM GAS FITTER): Pt presents with new onset anemia and CHF/fatigue sx---presumed to be acute blood loss anemia (GI source) 2/2 coumadin coagulopathy. Pt also has severe iron deficiency -pt remains hemodynamically stable -will transfuse 1 unit PRBC and will give IV iron tomorrow when more euvolemic -continue BID PPI -guaiac all stools -will hold coumadin for now and may need to lower INR goal -unclear if GI consult will be needed Assessment & Plan (07/13/2019 5:56 PM GAS FITTER): Pt presents with new onset anemia and CHF/fatigue sx---presumed to be acute blood loss anemia (GI source) 2/2 coumadin coagulopathy -pt hemodynamically stable -check baseline labs including iron panel/ferritin/TFTs and LDH -will likely need transfusion (per hx Hgb has steadily decreased to 8 from 11) -BID PPI -guaiac all stools -will hold coumadin for now -unclear if GI consult will be indicated Assessment & Plan (05/23/2018 11:31 AM GAS FITTER): Acute blood loss anemia in the setting of coumadin induced coagulopathy. Push enteroscopy on 05/14/18 without overt bleeding or site of prior bleeding identified. No recurrent bleeding. -counts remain stable s/p 3 units of PRBC -s/p colonoscopy on 05/19 showed diverticulosis and polyps--s/p polypectomy -continue PPI BID -continue heparin/coumadin until INR therapeutic -no asa 2/2 multiple GI bleeds Assessment & Plan (05/21/2018 11:58 AM GAS FITTER): Acute blood loss anemia in the setting of coumadin induced coagulopathy. Push enteroscopy on 05/14/18 without overt bleeding or site of prior bleeding identified. No recurrent bleeding. -s/p colonoscopy on 05/19 showed diverticulosis and polyps--s/p polypectomy -counts remain stable s/p 3 units of PRBC -continue PPI BID -continue heparin/coumadin until INR therapeutic -no asa 2/2 multiple GI bleeds Assessment & Plan (05/19/2018 9:48 AM GAS FITTER): Acute blood loss anemia in the setting of coumadin induced coagulopathy. Push enteroscopy on 05/14/18 without overt bleeding or site of prior bleeding identified. No recurrent bleeding. -plan for c-scope today -counts remain stable s/p 3 units of PRBC -continue PPI BID -coumadin remains on hold -no asa 2/2 multiple GI bleeds Assessment & Plan (05/17/2018 11:20 AM GAS FITTER): Acute blood loss anemia in the setting of coumadin induced coagulopathy. Push enteroscopy on 05/14/18 without overt bleeding or site of prior bleeding identified. No recurrent bleeding. Discussed with GI who considering colo rather than capsule but unsure about timing. -GI to see tomorrow and note about timing of colo -cont with asa, coumadin, and heparin gtt for now but may have to hold coumadin if colo to be done during this admission pending GI recs tomorrow -last 2u PRBCs overnight on 05/14/18, Hgb stable at 9, cont to trend H/H q 12hrs -cont IV PPI Suspect acute blood loss related coagulapathy from warfarin therapy for anticoagulation for LVAD Assessment & Plan (05/16/2018 10:22 AM GAS FITTER): Acute blood loss anemia in the setting of coumadin induced coagulopathy. Push enteroscopy on 05/14/18 without overt bleeding or site of prior bleeding identified. No recurrent bleeding. Discussed with GI who considering colo rather than capsule but unsure about timing. -GI to see tomorrow and note about timing of colo -cont with asa, coumadin, and heparin gtt for now but may have to hold coumadin if colo to be done during this admission pending GI recs tomorrow -last 2u PRBCs overnight on 05/14/18, Hgb stable at 9, cont to trend H/H q 12hrs -cont IV PPI Assessment & Plan (05/14/2018 1:03 PM GAS FITTER): Acute blood loss anemia in the setting of coumadin induced coagulopathy -GI consulted, plan for push endoscopy today -NPO -received 2u PRBCs overnight, Hgb 8.7, cont to trend H/H q 8hrs -cont IV PPI -hold asa and warfarin Type 2 diabetes mellitus wit h hyperglycemia, with long-term current use of insulin 04/26/2013 Assessment & Plan (08/15/2024 10:22 AM CDT): Home insulin regimen: Lantus 16u and Lispro 7u with meals -Hgb A1C 9.5% -D/c'd Jardiance due to uncontrolled DM -Dose reduced insulin on admit -PO intake variable -08/12, increased Lantus to 14 units nightly -08/12, increased Lispro to 3 units TID AC -Glucose POC and SSI TID AC and HS -Continue to titrate insulin regimen as indicated Assessment & Plan (08/14/2024 4:54 PM CDT): Home insulin regimen: Lantus 16u and Lispro 7u with meals -Hgb A1C 9.5% -D/c'd Jardiance -Dose reduced insulin on admit -PO intake variable -08/12, increased Lantus to 14 units nightly -08/12, increased Lispro to 3 units TID AC -Glucose POC and SSI TID AC and HS -Continue to titrate insulin regimen as indicated Assessment & Plan (08/12/2024 10:06 AM CDT): Home insulin regimen: Lantus 16u and Lispro 7u with meals -Hgb A1C 9.5% -D/c'd Jardiance -Dose reduced insulin on admit -PO intake variable -08/12 Increased Lantus to 14 units nightly given blood sugars still in the 200's -08/12 Increase Lispro 3 units TID AC -Glucose POC and SSI TID AC and HS -Continue to titrate insulin regimen as indicated Assessment & Plan (08/11/2024 11:02 AM CDT): Home insulin regimen: Lantus 16u and Lispro 7u with meals -Hgb A1C 9.5% -D/c'd Jardiance -Dose reduced insulin on admit -PO intake variable -Lantus 12 units nightly -Lispro 2 units TID AC -Glucose POC and SSI TID AC and HS -Continue to titrate insulin regimen as indicated Assessment & Plan (08/10/2024 11:09 AM CDT): Home insulin regimen: Lantus 16u and Lispro 7u with meals -Hgb A1C 9.5% -D/c Jardiance -Dose reduced insulin on admit -PO intake variable -Lantus 12 units nightly -Lispro 2 units TID AC -Glucose POC and SSI TID AC and HS -Continue to titrate insulin regimen as indicated Assessment & Plan (08/09/2024 3:18 PM CDT): Home insulin regimen: Lantus 16u and Lispro 7u with meals -Hgb A1C 9.5% -D/c Jardiance -Dose reduced insulin on admit -PO intake variable -Lantus 12 units nightly -Lispro 2 units TID AC -Glucose POC and SSI TID AC and HS -Continue to titrate insulin regimen as indicated Assessment & Plan (08/08/2024 12:46 PM CDT): Home insulin regimen: Lantus 16u and Lispro 7u with meals -Hgb A1C 9.5% -Dose reduced insulin on admit -BG elevated -PO intake variable -Lantus 12 units nightly -Lispro 2 units TID AC -Glucose POC and SSI TID AC and HS -Continue to titrate insulin regimen as indicated Assessment & Plan (08/05/2024 9:53 AM CDT): Home insulin regimen: Lantus 16u and Lispro 7u with meals -Hgb A1C 9.5% -Dose reduced insulin on admit -BG elevated -Increase Lantus to 12 units nightly -Continue Lispro 4 units TID AC -Glucose POC and SSI TID AC and HS -Continue to titrate insulin regimen as indicated Assessment & Plan (08/04/2024 4:23 PM CDT): Home insulin regimen: Lantus 16u and Lispro 7u with meals -Hgb A1C 9.5% -Dose reduced insulin on admit -BG elevated -Increase Lantus to 12 units nightly -Continue Lispro 4 units TID AC -Glucose POC and SSI TID AC and HS -Continue to titrate insulin regimen as indicated Assessment & Plan (08/03/2024 7:44 PM CDT): Home insulin regimen: Lantus 16u and Lispro 7u with meals HgbA1C 9.5 -blood glucose levels between 200-350 -titrate insulins PRN Assessment & Plan (06/08/2024 2:45 PM GAS FITTER): Home regimen: Tuojeo, Ozepmic (Sundays), humalog with meals, -HGB A1c 7.6 on 04/28/24 -BG elevated -Continue Lantus to 16 units Q AM, Lipsro 7 units TID with meals + SSI -Accuchecks -Carb consistent diet Assessment & Plan (06/07/2024 10:38 AM GAS FITTER): Home regimen: Tuojeo, Ozepmic (Sundays), humalog with meals, -HGB A1c 7.6 on 04/28/24 -BG elevated -Continue Lantus to 16 units Q AM, Lipsro 7 units TID with meals + SSI -Accuchecks -Carb consistent diet Assessment & Plan (06/05/2024 12:40 PM GAS FITTER): Home regimen: Tuojeo, Ozepmic (Sundays), humalog with meals, -HGB A1c 7.6 on 04/28/24 -BG elevated -Continue Lantus to 16 units Q AM, Lipsro 7 units TID with meals 16 + SSI -Accuchecks -Carb consistent diet Assessment & Plan (06/03/2024 11:15 AM GAS FITTER): Home regimen: Tuojeo Ozepmic (Sundays), humalog with meals, -HGB A1c 7.6 on 04/28/24 -BG elevated -Continue Lantus to 16 units Q AM, Lipsro 7 units TID with meals 06/02 + SSI -Accuchecks -Carb consistent diet Assessment & Plan (06/02/2024 10:33 AM GAS FITTER): Home regimen: Tuojeo Ozepmic (Sundays), humalog with meals, -HGB A1c 7.6 on 04/28/24 -BG elevated -Increased Lantus to 16 units Q AM, Lipsro 7 units TID with meals 06/02 + SSI -Accuchecks -Carb consistent diet Assessment & Plan (05/29/2024 1:01 PM GAS FITTER): Home regimen: Tuojeo, Ozepmic (Sundays), humalog with meals, -HGB A1c 7.6 on 04/28/24 -BG controlled -Continue Lantus to 14 units Q AM, Lipsro 4 units TID with meals + SSI -Accuchecks -Carb consistent diet Assessment & Plan (05/28/2024 4:30 PM GAS FITTER): Home regimen: Tuojeo, Ozepmic (Sundays), humalog with meals, -HGB A1c 7.6 on 04/28/24 -BG elevated -Increase Lantus to 14 units Q AM -Continue Lipsro 4 units TID with meals + SSI -Accuchecks -Carb consistent diet Assessment & Plan (05/27/2024 7:58 AM GAS FITTER): Home regimen: Tuojeo, Ozepmic (Sundays), humalog with meals, -HGB A1c 7.6 on 04/28/24 -POC BG and SSI QID -hyperglycemic, add lantus and meal time insulin Assessment & Plan (05/25/2024 1:59 PM GAS FITTER): Home regimen: Tuojeo, Ozepmic (Sundays), humalog with meals, -HGB A1c 7.6 on 04/28/24 -POC BG and SSI QID -consider lantus plus meal if BG uncontrolled Assessment & Plan (05/27/2022 10:09 AM GAS FITTER): -Hgb A1c 6.4% -Well controlled as inpatient with glucose 110-150's -Decreased Lantus to 17 units nightly and Lispro to 10units with meals with SSI -POC Glucose QID + 0200 -Carbohydrate consistent diet Assessment & Plan (05/26/2022 2:06 PM GAS FITTER): Hgb A1c 6.4% Well controlled as inpatient with glucose 110-150's Decreased Lantus to 17 units nightly and Lispro to 10units with meals with SSI POC Glucose QID + 0200 Carbohydrate consistent diet Assessment & Plan (05/25/2022 10:23 AM GAS FITTER): Hgb A1c 6.4% Well controlled as inpatient with glucose 110-150's Decreased Lantus to 17 units nightly and Lispro to 10units with meals with SSI POC Glucose QID + 0200 Carbohydrate consistent diet Assessment & Plan (05/24/2022 11:19 AM GAS FITTER): Hgb A1c 6.4% Well controlled as inpatient with glucose 110-150's Decreased Lantus to 17 units nightly and Lispro to 10units with meals with SSI POC Glucose QID + 0200 Carbohydrate consistent diet Assessment & Plan (05/23/2022 4:45 PM GAS FITTER): Hgb A1c 6.4% Well controlled as inpatient with glucose 110-150's Blood glucose low on BMP this am Decreased Lantus to 17 units nightly and Lispro to 10units with meals with SSI POC Glucose QID + 0200 Carbohydrate consistent diet Assessment & Plan (05/22/2022 3:49 PM GAS FITTER): Hgb A1c 6.4% Well controlled as inpatient with glucose 110-150's Continue Lantus at 20 units nightly and Lispro 12 units with meals with SSI POC Glucose QID Carbohydrate consistent diet Assessment & Plan (05/21/2022 2:06 PM GAS FITTER): Patient reports hyperglycemia the last few days Hgb A1c 6.4% Continue Lantus at 20 units nightly and Lispro 12 units with meals with SSI POC Glucose QID Carbohydrate consistent diet Assessment & Plan (05/20/2022 9:30 AM GAS FITTER): Patient reports hyperglycemia the last few days Hgb A1c 6.4% Continue Lantus at 20 units nightly and Lispro 12 units with meals with SSI POC Glucose QID Carbohydrate consistent diet Assessment & Plan (05/16/2022 1:36 PM GAS FITTER): Patient reports hyperglycemia the last few days Hgb A1c 6.4% Continue Lantus at 20 units nightly and Lispro 12 units with meals with SSI POC Glucose QID Carbohydrate consistent diet Assessment & Plan (05/15/2022 12:27 PM GAS FITTER): Patient reports hyperglycemia the last few days Check Hgb A1c Continue Lantus at 15 units nightly and Lispro 7units with meals with SSI POC Glucose QID Carbohydrate consistent diet Assessment & Plan (05/14/2022 3:38 PM GAS FITTER): Patient reports hyperglycemia the last few days Check Hgb A1c Continue Lantus at 12U Nightly (15U at home) and Lispro 7U with meals with SSI (15U per meal at home) POC Glucose QID Carbohydrate consistent diet Assessment & Plan (06/26/2020 9:46 AM GAS FITTER): Mildly elevated BG on admission - High insulin requirements at home (Jardiance, Tujeo 80U qAM, Lispro 22U TID AC) - Continue QID POC glucose - Hold Jardiance inpatient - continue reduced dose Lantus, lispro with meals and sliding scale - carbohydrate consistent diet Assessment & Plan (06/26/2020 9:22 AM GAS FITTER): Mildly elevated BG on admission - High insulin requirements at home (Jardiance, Tujeo 80U qAM, Lispro 22U TID AC) - Continue QID POC glucose - Hold Jardiance inpatient - continue reduced dose Lantus, lispro with meals and sliding scale - carbohydrate consistent diet Assessment & Plan (06/25/2020 8:12 AM GAS FITTER): Mildly elevated BG on admission - High insulin requirements at home (Jardiance, Tujeo 80U qAM, Lispro 22U TID AC) - Continue QID POC glucose - Hold Jardiance inpatient - continue reduced dose Lantus, lispro with meals and sliding scale - carbohydrate consistent diet Assessment & Plan (06/22/2020 1:24 PM GAS FITTER): Mildly elevated BG on admission. High insulin requirements at home (Jardiance, Tujeo 80U qAM, Lispro 22U TID AC) Continue QID POC glucose Hold Jardiance inpatient -Reduced long-acting insulin to Lantus 70U qAM -Reduced dose lispro 15U TID AC -SSI, carb consistent diet Assessment & Plan (06/21/2020 1:11 PM GAS FITTER): Mildly elevated BG on admission. High insulin requirements at home (Jardiance, Tujeo 80U qAM, Lispro 22U TID AC) Continue QID POC glucose Hold Jardiance inpatient -Reduced long-acting insulin to Lantus 70U qAM -Reduced dose lispro 15U TID AC -SSI, carb consistent diet Assessment & Plan (06/01/2020 11:08 AM GAS FITTER): -continue QID acchchecks and lantus and mealtime insulin + insulin and decrease dose -hold Jardiance while in house Assessment & Plan (05/31/2020 12:35 PM GAS FITTER): -continue QID acchchecks and lantus and mealtime insulin + insulin and decrease dose -hold Jardiance while in house Assessment & Plan (05/30/2020 4:41 PM GAS FITTER): -continue QID acchchecks and lantus and mealtime insulin + insulin and decrease dose -hold Jardiance -HgAIC Assessment & Plan (04/11/2020 11:36 AM GAS FITTER): Home: Jardiance, Tujeo 80U qAM, Lispro 22U TID AC Plan: Reduced long-acting insulin to Lantus 70U qAM Reduced dose lispro 15U TID AC Holding home Jardiance SSI as needed Carbohydrate consistent diet Follow Assessment & Plan (07/22/2019 12:14 PM GAS FITTER): Hgb A1c 8.2 -Glucose well controlled as inpatient -continue current insulin regimen -consistent carb diet Assessment & Plan (07/21/2019 10:44 AM GAS FITTER): Hgb A1c 8.2 -Glucose well controlled as inpatient -continue current insulin regimen -consistent carb diet Assessment & Plan (07/20/2019 11:25 AM GAS FITTER): Hgb A1c 8.2 -Glucose well controlled as inpatient -continue current insulin regimen Assessment & Plan (07/19/2019 10:04 AM GAS FITTER): Hgb A1c 8.2 -Glucose well controlled as inpatient -continue current insulin regimen Assessment & Plan (07/18/2019 12:48 PM GAS FITTER): Hgb A1c 8.2 -Glucose well controlled as inpatient -continue current insulin regimen Assessment & Plan (07/17/2019 10:29 AM GAS FITTER): Hgb A1c 8.2 Glucose well controlled as inpatient - 90-170's Continue current insulin regimen Assessment & Plan (07/15/2019 12:44 PM GAS FITTER): -will continue long acting lantus and mealtime insulin -adjust mealtime insulin as needed -SSI PRN Assessment & Plan (07/14/2019 11:17 AM GAS FITTER): -will continue long acting lantus and mealtime insulin at decreased doses -SSI PRN Assessment & Plan (07/13/2019 5:59 PM GAS FITTER): -will continue long acting lantus and mealtime insulin at decreased doses -SSI PRN Assessment & Plan (05/24/2018 10:59 AM GAS FITTER): reviewed blood sugars 97,163,192,109 continue lantus 50 units at night and ssi -Continue to monitor Assessment & Plan (05/23/2018 11:31 AM GAS FITTER): -continue lantus and SSI -Continue to monitor Assessment & Plan (05/21/2018 12:01 PM GAS FITTER): -continue lantus and SSI : 287,204 lantus 50 units ( decreased from home dose of 80 units ) -Continue to monitor Assessment & Plan (05/20/2018 9:19 AM GAS FITTER): -continue lantus and SSI : 287,204 lantus 50 units ( decreased from home dose of 80 units ) -Continue to monitor Assessment & Plan (05/19/2018 10:04 AM GAS FITTER): -continue lantus and SSI -Insulin decreased from home dose 80 units . -Continue to monitor Assessment & Plan (05/17/2018 11:22 AM GAS FITTER): -reviewed blood sugars : 126,248,217,188,153,103,94 lantus 60 units at bedtime and SSI Insulin decreased from home dose 80 units . Continue to monitor Assessment & Plan (05/14/2018 1:04 PM GAS FITTER): -home lantus reduced from 80 to 60 daily -hold home lispro 18 TID AC while NPO -lispro SSI Assessment & Plan (05/07/2018 10:39 AM GAS FITTER): -will start lantus and lispro at lower dose and monitor -cont gabapentin Assessment & Plan (05/06/2018 12:41 PM GAS FITTER): -will start lantus and lispro at lower dose and monitor -cont gabapentin Atherosclerosis of coronary artery 10/01/2010 Assessment & Plan (05/23/2018 11:31 AM GAS FITTER): -cont imdur, losartan, metoprolol, and statin as above -no asa given bleed Assessment & Plan (05/18/2018 11:17 AM GAS FITTER): -cont imdur, losartan, metoprolol, and statin as above --no asa given bleed Assessment & Plan (05/16/2018 10:32 AM GAS FITTER): -cont imdur, losartan, metoprolol, and statin as above Assessment & Plan (05/14/2018 1:03 PM GAS FITTER): -cont imdur, losartan, metoprolol, and statin Obstructive sleep apnea syndrome 10/01/2010 Assessment & Plan (02/18/2024 12:36 PM CDT): The patient continue to wear CPAP at 11 cm water pressure while sleeping. I have sent an order over for the patient to be refitted for a CPAP mask. The patient's DME is adapt. Assessment & Plan (11/03/2022 3:04 PM CDT): Patient will continue with CPAP therapy at 11 cm water pressure. Denied need for supplies. DME adapt Assessment & Plan (05/27/2022 10:09 AM GAS FITTER): -Continue CPAP (patient brought home unit) Assessment & Plan (05/26/2022 8:09 AM GAS FITTER): Continue CPAP (patient brought home unit) Assessment & Plan (05/25/2022 10:23 AM GAS FITTER): Continue CPAP (patient brought home unit) Assessment & Plan (05/24/2022 11:19 AM GAS FITTER): Continue CPAP (patient brought home unit) Assessment & Plan (05/21/2022 2:07 PM GAS FITTER): Continue CPAP (patient brought home unit) Assessment & Plan (05/17/2022 2:20 PM GAS FITTER): Patient brought home CPAP unit Assessment & Plan (05/16/2022 1:37 PM GAS FITTER): Patient brought home CPAP unit Assessment & Plan (05/15/2022 12:27 PM GAS FITTER): Patient did not bring home unit -Will have RT provide CPAP while patient hospitalized Assessment & Plan (05/14/2022 3:35 PM GAS FITTER): Patient did not bring home unit Will have RT provide CPAP while patient hospitalized Assessment & Plan (12/10/2021 12:09 PM CDT): Patient will continue CPAP therapy at 11 cm water pressure. He is unable to tolerate higher pressure. [employer]. Patient was reminded to examine CPAP prior to use for debris Assessment & Plan (06/10/2021 12:16 PM GAS FITTER): The patient will continue to wear his CPAP at 11 cm of water pressure The patient did receive an order for supplies. [employer]. The patient is benefitting from CPAP therapy. The patient was informed of the recall regarding his CPAP and his CPAP machine was registered at this visit. The patient is using the so clean. The patient and denies seeing any dark particles in the hose. The patient was asked to stop using the so clean. Assessment & Plan (12/06/2020 12:20 PM CDT): The patient's CPAP was increased to 13 cm water pressure for an elevated AHI and the patient stating he needed more pressure. The patient did receive an order for supplies. [facility] [employer]. The patient is benefitting from CPAP therapy. Assessment & Plan (06/26/2020 9:46 AM GAS FITTER): - Continue home CPAP Assessment & Plan (06/26/2020 9:24 AM GAS FITTER): - Continue home CPAP Assessment & Plan (06/25/2020 8:14 AM GAS FITTER): - Continue home CPAP Assessment & Plan (06/21/2020 2:35 AM GAS FITTER): Continue home CPAP -NPPV ordered Assessment & Plan (06/01/2020 11:08 AM GAS FITTER): -continue home CPAP Assessment & Plan (05/31/2020 12:36 PM GAS FITTER): -continue home CPAP Assessment & Plan (05/30/2020 4:12 PM GAS FITTER): -continue home CPAP Assessment & Plan (04/11/2020 11:38 AM GAS FITTER): Continue home CPAP Assessment & Plan (05/23/2018 11:32 AM GAS FITTER): -c/w home CPAP Assessment & Plan (05/21/2018 12:06 PM GAS FITTER): -home CPAP Assessment & Plan (05/20/2018 9:13 AM GAS FITTER): -home CPAP Assessment & Plan (05/19/2018 9:51 AM GAS FITTER): -home CPAP Assessment & Plan (05/17/2018 11:22 AM GAS FITTER): -home CPAP Assessment & Plan (05/14/2018 1:12 PM GAS FITTER): -home CPAP Resolved Problems Problem Noted Date Diagnosed Date Resolved Date Acute renal failure 05/16/2018 05/21/19 19 Assessment & Plan (05/19/2018 9:51 AM GAS FITTER): -RENETTA w/w intravascular dehydration in setting of GI bleed/pre-kristal; -Cr now baseline -lasix/cozaar resumed Assessment & Plan (05/16/2018 10:31 AM GAS FITTER): Pt noted to have Cr 1.4 today, likely due to pre-renal etiology from over diuresis. He received his lasix 20 mg PO today already. -holding AM dose of lasix/losartan tomorrow in AM and give only if Cr improving after AM labs Heart failure 11/13/2016 05/30/2020 Cardiomyopathy 08/30/2015 11/26/2017 Immunizations Immunization Administration Dates Next Due Influenza, Quadrivalent, Jenifer l Culture-based MDCK, Antibiotic Free, Intramuscular 03/04/2018 Influenza, Quadrivalent, Jenifer l Culture-based MDCK, Preservative Free, Antibiotic Free, Intramuscular 02/20/2020,03/03/2019 Influenza, Quadrivalent, Spl it, Preservative Free, Intramuscular 02/19/2017 Influenza, Unspecified 02/15/2017 Pneumococcal Conjugate, Unspecified 11/10/2012 Social History Tobacco Use Types Packs/Day Years Used Date Smoking Tobacco: Never Smokeless Tobacco: Never Tobacco Cessation:Counseling Given: Not Answered Alcohol Use Standard Drinks/Week Comments No 0 [...] materials from doctor or pharmacy Sometimes 07/04/2022 [facility] Utilities Answer Date Recorded In the past 12 months has e [employer], oil, or water [employer] threatened to shut off services in your [...] often do you attend chur ch or restorationist services? Never 09/13/2024 Do you belong to any clubs o r organizations such as anglican groups, unions, fraternal or athletic groups, or [...] any time in the past 12 m [facility], were you homeless or living in a senior living (including now)? No 09/13/2024 Personal Safety Answer Date Recorded Have you ever been in or are you currently in a harmful physical or emotional relationship or is someone making you feel afraid or unsafe? 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 GAS FITTER Gender Identity Not on file Sexual Orientation Not on file Last Filed Vital Signs Vital Sign Reading Time Taken Comments Blood Pressure 122/86 09/20/2024 3:15 PM CDT Pulse 76 10/13/2024 10:19 AM CDT Temperature 36.7 C (98.1 F) 09/20/2024 3:15 PM CDT Respiratory Rate 18 09/20/2024 3:15 PM CDT Oxygen Saturation 100% 10/13/2024 10:19 AM CDT Inhaled Oxygen Concentration - - Weight 70.4 kg (155 lb 3.2 oz) 10/13/2024 10:19 AM CDT Height 175.3 cm (5' 9) 10/13/2024 10:19 AM CDT Body Mass Index 22.92 10/13/2024 10:19 AM CDT Plan of Treatment Not on file Medical Devices Implanted Type Area Cotton Washer Device Identifier Shelf Expiration Date Model / Serial / Lot [id number]-06/13/2014 Implanted:2014 by Sumaya Mitchell MD PhD (Quantity not on file) LVAD Heart [employer] Margarita Procedures Procedure Name Priority Date/Time Associated Diagnosis Comments PROTIME-INR Routine 10/25/2024 COMPREHENSIVE METABOLIC PANEL Routine 10/21/2024 CBC WITH AUTO DIFFERENTIAL Routine 10/21/2024 PROTIME-INR Routine 10/18/2024 PROTIME-INR Routine 10/14/2024 COMPREHENSIVE METABOLIC PANEL Routine 10/11/2024 LACTATE DEHYDROGENASE Routine 10/11/2024 CBC WITH AUTO DIFFERENTIAL Routine 10/11/2024 CS GLUCOSE Routine Gen Lab 10/05/2024 5:04 AM CDT EGFR Routine Gen Lab 10/05/2024 5:04 AM CDT COMPREHENSIVE METABOLIC PANEL WITHOUT GLUCOSE (OUTREACH) Routine Gen Lab 10/05/2024 5:04 AM CDT DIFFERENTIAL AUTO Routine Gen Lab 10/05/2024 5:04 AM CDT CBC WITH AUTO DIFFERENTIAL Routine Gen Lab 10/05/2024 5:04 AM CDT PROTIME-INR Routine Gen Lab 10/04/2024 4:15 AM CDT PROTIME-INR Routine Gen Lab 10/03/2024 2:27 PM CDT PROTIME-INR Routine Gen Lab 10/02/2024 5:57 AM CDT AMMONIA STAT 10/01/2024 6:51 AM CDT PROTIME-INR Routine Gen Lab 10/01/2024 6:[address] HEAD WO CONTRAST Schedule Routine, Read Routine (OP Routine) 09/30/2024 12:01 PM CDT Altered mental status, unspecified altered mental status type AMMONIA Routine Gen Lab 09/30/2024 5:31 AM CDT LACTATE STAT 09/29/2024 6:59 PM CDT TSH STAT 09/29/2024 6:00 PM CDT PROTIME-INR Routine Gen Lab 09/29/2024 7:12 AM CDT PROTIME-INR STAT 09/28/2024 3:37 PM CDT PROTIME-INR Routine Gen Lab 09/28/2024 6:34 AM CDT CS GLUCOSE Routine Gen Lab 09/28/2024 6:34 AM CDT EGFR Routine Gen Lab 09/28/2024 6:34 AM CDT COMPREHENSIVE METABOLIC PANEL WITHOUT GLUCOSE (OUTREACH) Routine Gen Lab 09/28/2024 6:34 AM CDT DIFFERENTIAL AUTO Routine Gen Lab 09/28/2024 6:34 AM CDT CBC WITH AUTO DIFFERENTIAL Routine Gen Lab 09/28/2024 6:34 AM CDT PROTIME-INR Routine Gen Lab 09/27/2024 5:05 PM CDT EGFR Routine Gen Lab 09/27/2024 5:00 AM CDT CS BASIC METABOLIC PANEL Routine Gen Lab 09/27/2024 5:00 AM CDT CS GLUCOSE Routine Gen Lab 09/27/2024 5:00 AM CDT PROTIME-INR Routine Gen Lab 09/26/2024 5:25 AM CDT URINALYSIS, MICROSCOPIC ONLY Routine Gen Lab 09/26/2024 5:18 AM CDT URINALYSIS AND REFLEX TO MICROSCOPIC AND CULTURE Routine Gen Lab 09/26/2024 5:18 AM CDT BLOOD CULTURE Routine Gen Lab 09/25/2024 9:20 AM CDT BLOOD CULTURE Routine 09/25/2024 9:20 AM CDT BLOOD CULTURE Routine Gen Lab 09/25/2024 9:15 AM CDT BLOOD CULTURE Routine 09/25/2024 9:15 AM CDT EGFR Routine Gen Lab 09/25/2024 9:00 AM CDT COMPREHENSIVE METABOLIC PANEL WITHOUT GLUCOSE (OUTREACH) Routine Gen Lab 09/25/2024 9:00 AM CDT CS GLUCOSE Routine Gen Lab 09/25/2024 9:00 AM CDT DIFFERENTIAL AUTO Routine Gen Lab 09/25/2024 9:00 AM CDT CBC WITH AUTO DIFFERENTIAL Routine Gen Lab 09/25/2024 9:00 AM CDT PROTIME-INR Routine Gen Lab 09/25/2024 5:12 AM CDT PROTIME-INR Routine Gen Lab 09/24/2024 5:58 AM CDT PROTIME-INR Routine Gen Lab 09/23/2024 7:04 AM CDT DIFFERENTIAL AUTO Routine Gen Lab 09/21/2024 5:00 AM CDT CBC WITH AUTO DIFFERENTIAL Routine Gen Lab 09/21/2024 5:00 AM CDT EGFR Routine Gen Lab 09/21/2024 5:00 AM CDT COMPREHENSIVE METABOLIC PANEL WITHOUT GLUCOSE (OUTREACH) Routine Gen Lab 09/21/2024 5:00 AM CDT PROTIME-INR Routine Gen Lab 09/21/2024 5:00 AM CDT POCT GLUCOSE DEVICE Routine 09/20/2024 4 :25 PM CDT POCT GLUCOSE DEVICE Routine 09/20/2024 11:23 AM CDT POCT GLUCOSE DEVICE Routine 09/20/2024 8 :03 AM CDT EGFR Routine 09/20/2024 4:41 AM CDT PROTIME-INR Routine 09/20/2024 4:41 AM CDT BASIC METABOLIC PANEL Routine 09/20/2024 4:41 AM CDT POCT GLUCOSE DEVICE Routine 09/19/2024 7 :44 PM CDT POCT GLUCOSE DEVICE Routine 09/19/2024 4 :48 PM CDT POCT GLUCOSE DEVICE Routine 09/19/2024 11:38 AM CDT POCT GLUCOSE DEVICE Routine 09/19/2024 9 :08 AM CDT EGFR Routine 09/19/2024 3:25 AM CDT MAGNESIUM Routine 09/19/2024 3:25 AM CDT CBC WITHOUT DIFFERENTIAL Timed 09/19/2024 3:25 AM CDT PROTIME-INR Routine 09/19/2024 3:25 AM CDT BASIC METABOLIC PANEL Routine 09/19/2024 3:25 AM CDT HEPATIC FUNCTION PANEL Routine 09/19/2024 3:25 AM CDT POCT GLUCOSE DEVICE Routine 09/18/2024 7 :44 PM CDT POCT GLUCOSE DEVICE Routine 09/18/2024 4 :42 PM CDT POCT GLUCOSE DEVICE Routine 09/18/2024 11:48 AM CDT POCT GLUCOSE DEVICE Routine 09/18/2024 7 :39 AM CDT POCT GLUCOSE DEVICE Routine 09/18/2024 7 :33 AM CDT EGFR Routine 09/18/2024 3:27 AM CDT PROTIME-INR Routine 09/18/2024 3:27 AM CDT BASIC METABOLIC PANEL Routine 09/18/2024 3:27 AM CDT POCT GLUCOSE DEVICE Routine 09/17/2024 7 :50 PM CDT POCT GLUCOSE DEVICE Routine 09/17/2024 4 :44 PM CDT POCT GLUCOSE DEVICE Routine 09/17/2024 11:18 AM CDT POCT GLUCOSE DEVICE Routine 09/17/2024 7 :21 AM CDT EGFR Routine 09/17/2024 3:54 AM CDT PROTIME-INR Routine 09/17/2024 3:54 AM CDT BASIC METABOLIC PANEL Routine 09/17/2024 3:54 AM CDT POCT GLUCOSE DEVICE Routine 09/16/2024 8 :13 PM CDT POCT GLUCOSE DEVICE Routine 09/16/2024 4 :33 PM CDT POCT GLUCOSE DEVICE Routine 09/16/2024 11:22 AM CDT POCT GLUCOSE DEVICE Routine 09/16/2024 7 :43 AM CDT EGFR Routine 09/16/2024 4:34 AM CDT MAGNESIUM Routine 09/16/2024 4:34 AM CDT PROTIME-INR STAT 09/16/2024 4:34 AM CDT APTT STAT 09/16/2024 4:34 AM CDT VANCOMYCIN LEVEL TROUGH Timed 09/16/2024 4:34 AM CDT CBC WITHOUT DIFFERENTIAL Timed 09/16/2024 4:34 AM CDT BASIC METABOLIC PANEL Routine 09/16/2024 4:34 AM CDT APTT STAT 09/15/2024 10:29 PM CDT POCT GLUCOSE DEVICE Routine 09/15/2024 8 :13 PM CDT POCT GLUCOSE DEVICE Routine 09/15/2024 4 :35 PM CDT APTT STAT 09/15/2024 2:52 PM CDT POCT GLUCOSE DEVICE Routine 09/15/2024 11:12 AM CDT POCT GLUCOSE DEVICE Routine 09/15/2024 7 :27 AM CDT PROTIME-INR Timed 09/15/2024 4:04 AM CDT EGFR Routine 09/15/2024 4:04 AM CDT APTT Timed 09/15/2024 4:04 AM CDT HEPATIC FUNCTION PANEL Routine 09/15/2024 4:04 AM CDT BASIC METABOLIC PANEL Routine 09/15/2024 4:04 AM CDT POCT GLUCOSE DEVICE Routine 09/14/2024 7 :53 PM CDT POCT GLUCOSE DEVICE Routine 09/14/2024 4 :[address] CHEST ABDOMEN PELVIS W CONTRAST IP Routine 09/14/2024 1:24 PM CDT POCT GLUCOSE DEVICE Routine 09/14/2024 11:51 AM CDT POCT GLUCOSE DEVICE Routine 09/14/2024 7 :52 AM CDT EGFR Routine 09/14/2024 5:00 AM CDT MAGNESIUM Routine 09/14/2024 5:00 AM CDT PROTIME-INR Timed 09/14/2024 5:00 AM CDT APTT Timed 09/14/2024 5:00 AM CDT VANCOMYCIN LEVEL TROUGH Routine 09/14/2024 5:00 AM CDT CBC WITHOUT DIFFERENTIAL Timed 09/14/2024 5:00 AM CDT BASIC METABOLIC PANEL Routine 09/14/2024 5:00 AM CDT APTT STAT 09/13/2024 11:21 PM CDT POCT GLUCOSE DEVICE Routine 09/13/2024 7 :35 PM CDT POCT GLUCOSE DEVICE Routine 09/13/2024 5 :00 PM CDT APTT STAT 09/13/2024 4:11 PM CDT POCT GLUCOSE DEVICE Routine 09/13/2024 11:28 AM CDT POCT GLUCOSE DEVICE Routine 09/13/2024 8 :14 AM CDT EGFR Routine 09/13/2024 4:02 AM CDT PROTIME-INR Routine 09/13/2024 4:02 AM CDT CBC WITHOUT DIFFERENTIAL Routine 09/13/2024 4:02 AM CDT MAGNESIUM Routine 09/13/2024 4:02 AM CDT BASIC METABOLIC PANEL Routine 09/13/2024 4:02 AM CDT URINALYSIS, MICROSCOPIC ONLY STAT 09/12/2024 9:42 PM CDT AEROBIC AND ANAEROBIC CULTURE AND GRAM STAIN Routine 09/12/2024 9:42 PM CDT URINALYSIS AND REFLEX TO MICROSCOPIC AND CULTURE STAT 09/12/2024 9:42 PM CDT POCT GLUCOSE DEVICE Routine 09/12/2024 8 :52 PM CDT ECG 12-LEAD Routine 09/12/2024 8:18 PM CDT SEPSIS LACTATE WITH REFLEX Timed 09/12/2024 7:[address] HEAD WO CONTRAST ED 09/12/2024 5 :44 PM CDT APTT STAT 09/12/2024 4:50 PM CDT PROTIME-INR STAT 09/12/2024 4:50 PM CDT POCT GLUCOSE DEVICE Routine 09/12/2024 4 :47 PM CDT EGFR STAT 09/12/2024 4:26 PM CDT DIFFERENTIAL AUTO STAT 09/12/2024 4:2 6 PM CDT SEPSIS LACTATE WITH REFLEX STAT 09/12/2024 4:26 PM CDT COMPREHENSIVE METABOLIC PANEL STAT 09/12/2024 4:26 PM CDT CBC WITH AUTO DIFFERENTIAL STAT 09/12/2024 4:26 PM CDT BLOOD CULTURE STAT 09/12/2024 4:26 PM CDT BLOOD CULTURE STAT 09/12/2024 4:26 PM CDT XR CHEST PA LATERAL 2 VIEWS ED 09/12/2024 4:13 PM CDT PROTIME-INR Routine 09/07/2024 PROTIME-INR Routine 09/02/2024 PROTIME-INR Routine 09/02/2024 COMPREHENSIVE METABOLIC PANEL Routine 09/01/2024 8:00 AM CDT CBC WITH AUTO DIFFERENTIAL Routine 09/01/2024 8:00 AM CDT LACTATE DEHYDROGENASE Routine 09/01/2024 EGFR Routine Gen Lab 08/29/2024 5:54 AM CDT COMPREHENSIVE METABOLIC PANEL WITHOUT GLUCOSE (OUTREACH) Routine Gen Lab 08/29/2024 5:54 AM CDT MAGNESIUM Routine Gen Lab 08/29/2024 5:54 AM CDT PHOSPHORUS Routine Gen Lab 08/29/2024 5:54 AM CDT CS GLUCOSE Routine Gen Lab 08/29/2024 5:54 AM CDT DIFFERENTIAL AUTO Routine Gen Lab 08/29/2024 5:54 AM CDT CBC WITH AUTO DIFFERENTIAL Routine Gen Lab 08/29/2024 5:54 AM CDT PROTIME-INR Routine Gen Lab 08/29/2024 5:54 AM CDT PROTIME-INR Routine Gen Lab 08/28/2024 4:44 AM CDT PROTIME-INR Routine Gen Lab 08/27/2024 4:30 AM CDT PROTIME-INR Routine Gen Lab 08/26/2024 6:30 AM CDT MAGNESIUM Routine Gen Lab 08/25/2024 6:32 AM CDT PHOSPHORUS Routine Gen Lab 08/25/2024 6:32 AM CDT PROTIME-INR Routine Gen Lab 08/25/2024 6:32 AM CDT DIFFERENTIAL AUTO Routine Gen Lab 08/25/2024 6:32 AM CDT CBC WITH AUTO DIFFERENTIAL Routine Gen Lab 08/25/2024 6:32 AM CDT EGFR Routine Gen Lab 08/25/2024 6:31 AM CDT COMPREHENSIVE METABOLIC PANEL Routine Gen Lab 08/25/2024 6:31 AM CDT PROTIME-INR Routine Gen Lab 08/24/2024 6:11 AM CDT PROTIME-INR Routine Gen Lab 08/23/2024 5:10 AM CDT PROTIME-INR STAT 08/22/2024 5:55 PM CDT EGFR Routine Gen Lab 08/22/2024 5:41 AM CDT COMPREHENSIVE METABOLIC PANEL WITHOUT GLUCOSE (OUTREACH) Routine Gen Lab 08/22/2024 5:41 AM CDT MAGNESIUM Routine Gen Lab 08/22/2024 5:41 AM CDT PHOSPHORUS Routine Gen Lab 08/22/2024 5:41 AM CDT CS GLUCOSE Routine Gen Lab 08/22/2024 5:41 AM CDT PROTIME-INR Routine Gen Lab 08/22/2024 5:41 AM CDT DIFFERENTIAL AUTO Routine Gen Lab 08/22/2024 5:41 AM CDT CBC WITH AUTO DIFFERENTIAL Routine Gen Lab 08/22/2024 5:41 AM CDT EGFR Routine Gen Lab 08/18/2024 12:34 PM CDT COMPREHENSIVE METABOLIC PANEL WITHOUT GLUCOSE (OUTREACH) Routine Gen Lab 08/18/2024 12:34 PM CDT VITAMIN D 25 HYDROXY Routine Gen Lab 08/18/2024 12:34 PM CDT MAGNESIUM Routine Gen Lab 08/18/2024 12:34 PM CDT PHOSPHORUS Routine Gen Lab 08/18/2024 12:34 PM CDT CS GLUCOSE Routine Gen Lab 08/18/2024 12:34 PM CDT DIFFERENTIAL AUTO Routine Gen Lab 08/18/2024 12:34 PM CDT CBC WITH AUTO DIFFERENTIAL Routine Gen Lab 08/18/2024 12:34 PM CDT PROTIME-INR Routine Gen Lab 08/18/2024 12:34 PM CDT POCT GLUCOSE DEVICE Routine 08/15/2024 11:20 AM CDT POCT GLUCOSE DEVICE Routine 08/15/2024 7 :36 AM CDT EGFR Routine 08/15/2024 3:58 AM CDT PROTIME-INR Routine 08/15/2024 3:58 AM CDT CBC WITHOUT DIFFERENTIAL Routine 08/15/2024 3:58 AM CDT BASIC METABOLIC PANEL Routine 08/15/2024 3:58 AM CDT POCT GLUCOSE DEVICE Routine 08/14/2024 7 :31 PM CDT POCT GLUCOSE DEVICE Routine 08/14/2024 4 :37 PM CDT POCT GLUCOSE DEVICE Routine 08/14/2024 11:58 AM CDT POCT GLUCOSE DEVICE Routine 08/14/2024 7 :38 AM CDT EGFR Routine 08/14/2024 3:55 AM CDT PROTIME-INR Routine 08/14/2024 3:55 AM CDT CBC WITHOUT DIFFERENTIAL Routine 08/14/2024 3:55 AM CDT BASIC METABOLIC PANEL Routine 08/14/2024 3:55 AM CDT POCT GLUCOSE DEVICE Routine 08/13/2024 7 :53 PM CDT POCT GLUCOSE DEVICE Routine 08/13/2024 4 :48 PM CDT POCT GLUCOSE DEVICE Routine 08/13/2024 11:26 AM CDT POCT GLUCOSE DEVICE Routine 08/13/2024 9 :26 AM CDT EGFR Routine 08/13/2024 3:54 AM CDT PROTIME-INR Routine 08/13/2024 3:54 AM CDT CBC WITHOUT DIFFERENTIAL Routine 08/13/2024 3:54 AM CDT BASIC METABOLIC PANEL Routine 08/13/2024 3:54 AM CDT POCT GLUCOSE DEVICE Routine 08/12/2024 8 :07 PM CDT POCT GLUCOSE DEVICE Routine 08/12/2024 4 :51 PM CDT POCT GLUCOSE DEVICE Routine 08/12/2024 11:20 AM CDT POCT GLUCOSE DEVICE Routine 08/12/2024 7 :36 AM CDT EGFR Routine 08/12/2024 4:31 AM CDT PROTIME-INR Routine 08/12/2024 4:31 AM CDT CBC WITHOUT DIFFERENTIAL Routine 08/12/2024 4:31 AM CDT BASIC METABOLIC PANEL Routine 08/12/2024 4:31 AM CDT POCT GLUCOSE DEVICE Routine 08/11/2024 8 :22 PM CDT POCT GLUCOSE DEVICE Routine 08/11/2024 4 :58 PM CDT POCT GLUCOSE DEVICE Routine 08/11/2024 11:29 AM CDT POCT GLUCOSE DEVICE Routine 08/11/2024 7 :31 AM CDT POCT GLUCOSE DEVICE Routine 08/11/2024 4 :23 AM CDT EGFR Routine 08/11/2024 3:35 AM CDT PROTIME-INR Routine 08/11/2024 3:35 AM CDT CBC WITHOUT DIFFERENTIAL Routine 08/11/2024 3:35 AM CDT BASIC METABOLIC PANEL Routine 08/11/2024 3:35 AM CDT POCT GLUCOSE DEVICE Routine 08/10/2024 10:53 PM CDT POCT GLUCOSE DEVICE Routine 08/10/2024 7 :47 PM CDT POCT GLUCOSE DEVICE Routine 08/10/2024 4 :45 PM CDT POCT GLUCOSE DEVICE Routine 08/10/2024 11:11 AM CDT POCT GLUCOSE DEVICE Routine 08/10/2024 7 :29 AM CDT EGFR Routine 08/10/2024 3:47 AM CDT PROTIME-INR Routine 08/10/2024 3:47 AM CDT CBC WITHOUT DIFFERENTIAL Routine 08/10/2024 3:47 AM CDT BASIC METABOLIC PANEL Routine 08/10/2024 3:47 AM CDT POCT GLUCOSE DEVICE Routine 08/10/2024 3 :46 AM CDT POCT GLUCOSE DEVICE Routine 08/09/2024 11:50 PM CDT POCT GLUCOSE DEVICE Routine 08/09/2024 7 :47 PM CDT POCT GLUCOSE DEVICE Routine 08/09/2024 5 :51 PM CDT POCT GLUCOSE DEVICE Routine 08/09/2024 11:56 AM CDT FOLATE Timed 08/09/2024 11:40 AM CDT VITAMIN B12 Timed 08/09/2024 11:40 AM CDT RPR Timed 08/09/2024 11:40 AM CDT POCT GLUCOSE DEVICE Routine 08/09/2024 7 :50 AM CDT EGFR Routine 08/09/2024 4:32 AM CDT PROTIME-INR Routine 08/09/2024 4:32 AM CDT CBC WITHOUT DIFFERENTIAL Routine 08/09/2024 4:32 AM CDT BASIC METABOLIC PANEL Routine 08/09/2024 4:32 AM CDT POCT GLUCOSE DEVICE Routine 08/09/2024 4 :29 AM CDT POCT GLUCOSE DEVICE Routine 08/08/2024 11:15 PM CDT POCT GLUCOSE DEVICE Routine 08/08/2024 7 :57 PM CDT POCT GLUCOSE DEVICE Routine 08/08/2024 4 :53 PM CDT POCT GLUCOSE DEVICE Routine 08/08/2024 11:23 AM CDT POCT GLUCOSE DEVICE Routine 08/08/2024 7 :41 AM CDT POCT GLUCOSE DEVICE Routine 08/08/2024 5 :18 AM CDT EGFR Routine 08/08/2024 5:07 AM CDT PROTIME-INR Routine 08/08/2024 5:07 AM CDT CBC WITHOUT DIFFERENTIAL Routine 08/08/2024 5:07 AM CDT BASIC METABOLIC PANEL Routine 08/08/2024 5:07 AM CDT POCT GLUCOSE DEVICE Routine 08/08/2024 12:15 AM CDT VANCOMYCIN LEVEL TROUGH Timed 08/07/2024 10:49 PM CDT POCT GLUCOSE DEVICE Routine 08/07/2024 8 :03 PM CDT POCT GLUCOSE DEVICE Routine 08/07/2024 4 :45 PM CDT POCT GLUCOSE DEVICE Routine 08/07/2024 11:50 AM CDT POCT GLUCOSE DEVICE Routine 08/07/2024 7 :18 AM CDT EGFR Routine 08/07/2024 3:52 AM CDT PROTIME-INR STAT 08/07/2024 3:52 AM CDT APTT STAT 08/07/2024 3:52 AM CDT CBC WITHOUT DIFFERENTIAL Routine 08/07/2024 3:52 AM CDT BASIC METABOLIC PANEL Routine 08/07/2024 3:52 AM CDT POCT GLUCOSE DEVICE Routine 08/06/2024 11:21 PM CDT APTT STAT 08/06/2024 8:45 PM CDT POCT GLUCOSE DEVICE Routine 08/06/2024 7 :42 PM CDT POCT GLUCOSE DEVICE Routine 08/06/2024 4 :51 PM CDT APTT STAT 08/06/2024 2:11 PM CDT POCT GLUCOSE DEVICE Routine 08/06/2024 11:23 AM CDT POCT GLUCOSE DEVICE Routine 08/06/2024 7 :33 AM CDT EGFR Routine 08/06/2024 3:35 AM CDT PROTIME-INR Routine 08/06/2024 3:35 AM CDT CBC WITHOUT DIFFERENTIAL Routine 08/06/2024 3:35 AM CDT BASIC METABOLIC PANEL Routine 08/06/2024 3:35 AM CDT POCT GLUCOSE DEVICE Routine 08/06/2024 12:39 AM CDT POCT GLUCOSE DEVICE Routine 08/05/2024 7 :33 PM CDT POCT GLUCOSE DEVICE Routine 08/05/2024 4 :46 PM CDT POCT GLUCOSE DEVICE Routine 08/05/2024 11:15 AM CDT POCT GLUCOSE DEVICE Routine 08/05/2024 7 :31 AM CDT EGFR Routine 08/05/2024 3:49 AM CDT PROTIME-INR Routine 08/05/2024 3:49 AM CDT CBC WITHOUT DIFFERENTIAL Routine 08/05/2024 3:49 AM CDT BASIC METABOLIC PANEL Routine 08/05/2024 3:49 AM CDT TROPONIN I HIGH-SENSITIVITY 2-HOUR Timed 08/05/2024 3:49 AM CDT VANCOMYCIN LEVEL TROUGH Timed 08/04/2024 9:02 PM CDT POCT GLUCOSE DEVICE Routine 08/04/2024 7 :37 PM CDT AEROBIC AND ANAEROBIC CULTURE AND GRAM STAIN Routine 08/04/2024 12:47 PM CDT POCT GLUCOSE DEVICE Routine 08/04/2024 11:46 AM CDT POCT GLUCOSE DEVICE Routine 08/04/2024 7 :46 AM CDT EGFR Routine 08/04/2024 3:23 AM CDT MAGNESIUM Routine 08/04/2024 3:23 AM CDT PROTIME-INR Routine 08/04/2024 3:23 AM CDT CBC WITHOUT DIFFERENTIAL Routine 08/04/2024 3:23 AM CDT COMPREHENSIVE METABOLIC PANEL Routine 08/04/2024 3:23 AM CDT POCT GLUCOSE DEVICE Routine 08/03/2024 8 :00 PM CDT ECG 12-LEAD Routine 08/03/2024 4:30 PM CDT POCT GLUCOSE DEVICE Routine 08/03/2024 4 :26 PM CDT POCT GLUCOSE DEVICE Routine 08/03/2024 12:52 PM CDT POCT GLUCOSE DEVICE Routine 08/03/2024 7 :16 AM CDT POCT GLUCOSE DEVICE Routine 08/03/2024 4 :17 AM CDT POCT GLUCOSE DEVICE Routine 08/03/2024 1 :54 AM CDT TROPONIN I HIGH-SENSITIVITY 4-HOUR Timed 08/02/2024 9:24 PM CDT POCT GLUCOSE DEVICE Routine 08/02/2024 9 :20 PM CDT XR CHEST PA LATERAL 2 VIEWS ED 08/02/2024 8:[address] ABDOMEN PELVIS W CONTRAST ED 08/02/2024 7:[address] HEAD WO CONTRAST ED 08/02/2024 6 :01 PM CDT TROPONIN I HIGH-SENSITIVITY SERIES (BASELINE, 2HR, 4HR, 6HR) STAT 08/02/2024 5:29 PM CDT URINALYSIS AND REFLEX TO MICROSCOPIC AND CULTURE STAT 08/02/2024 5:29 PM CDT HEMOGLOBIN A1C STAT 08/02/2024 4:36 PM CDT PRO B-TYPE NATRIURETIC PEPTIDE STAT 08/02/2024 4:36 PM CDT COMPREHENSIVE METABOLIC PANEL STAT 08/02/2024 4:36 PM CDT EGFR STAT 08/02/2024 4:36 PM CDT DIFFERENTIAL AUTO STAT 08/02/2024 4:3 6 PM CDT THYROID FUNCTION CASCADE STAT 08/02/2024 4:36 PM CDT APTT STAT 08/02/2024 4:36 PM CDT PROTIME-INR STAT 08/02/2024 4:36 PM CDT CBC WITH AUTO DIFFERENTIAL STAT 08/02/2024 4:36 PM CDT RESPIRATORY PATHOGEN PANEL STAT 08/02/2024 4:36 PM CDT BLOOD CULTURE STAT 08/02/2024 4:36 PM CDT BLOOD CULTURE STAT 08/02/2024 4:36 PM CDT ECG 12-LEAD STAT 08/02/2024 3:57 PM CDT POCT GLUCOSE DEVICE Routine 08/02/2024 3 :54 PM CDT PROTIME-INR Routine 08/01/2024 LIPID PANEL Routine 05/25/2024 10:48 AM GAS FITTER DIABETIC EYE EXAM Routine 10/28/2022 4:1 0 PM CDT ALBUMIN CREATININE RATIO, URINE Routine 01/02/2021 Hyperlipidemia, unspecified hyperlipidemia type Type 2 diabetes mellitus with hyperglycemia, with long-term current use of insulin (HCC) Hypothyroidism, unspecified type from Last 3 Months or Most Recently Relevant to Health Maintenance Results * (ABNORMAL) Protime-INR (10/25/2024) INR 1.30(A) 0.90 - 1.10 EXTERNAL LAB Blood Susy Provider LAB BLOOD ORDERABLES Paulette l Result Performing Organization Address [facility]/ZIP Co de Phone Number EXTERNAL LAB * (ABNORMAL) CBC with auto differential (10/21/2024) SCRIBED WBC 6.1 3.8 - 10.8 k/cumm [facility] SCRIBED Hemoglobin 11.1(A) 13.2 - 17.1 g/dL [facility] SCRIBED Hematocrit 36.3(A) 38.5 - 50.0 % [facility] SCRIBED Platelets 199 140 - 400 k/cumm [facility] Blood 10/21/2024 us Thompson Napoles MD LAB BLOOD ORDERABLES Fin al Result [facility] * (ABNORMAL) Comprehensive metabolic panel (10/21/2024) SCRIBED Sodium 135 135 - 146 mmol/L [facility] Potassium 4.0 3.5 - 5.3 mmol/L [facility] Chloride 103 98 - 110 mmol/L [facility] Carbon Dioxide 23 20 - 32 mmol/L [facility] Urea Nitrogen (BUN) 14 7 - 25 mg/dl [facility] Creatinine 0.72 0.70 - 1.22 mg/dl [facility] Glucose 291(A) 65 - 99 mg/dl [facility] Calcium 8.5(A) 8.6 - 10.3 mg/dl [facility] Bilirubin 0.4 0.2 - 1.2 mg/dl [facility] Plasma Protein 5.8(A) 6.1 - 8.1 g/dl [facility] Albumin 3.4(A) 3.6 - 5.1 g/dl [facility] Alkaline Phosphatase 80 35 - 144 Units/L [facility] S[facility] Alanine Transaminase (ALT) 10 9 - 46 Units/L [facility] S[facility] Aspartate Transaminase (AST) 13 10 - 35 Units/L [facility] SCRIBED eGFR in NonAfrican Finnish 92 >=60 [facility] Globulin 2.4 1.9 - 3.7 g/dL (calc) [facility] Alb/glob ratio 1.4 1.0 - 2.5 [facility] Blood 10/21/2024 Thompson Napoles MD LAB BLOOD ORDERABLES Fin al Result Performing Organization Address [facility]/ZIP Co de Phone Number [facility] * (ABNORMAL) Protime-INR (10/18/2024) INR 1.20(A) 0.90 - 1.10 EXTERNAL LAB Blood Result [facility] Historical Provider LAB BLOOD ORDERABLES Paulette l Result Performing Organization Address [facility]/ZIP Co de Phone Number EXTERNAL LAB * (ABNORMAL) Protime-INR (10/14/2024) INR 1.20(A) 0.90 - 1.10 EXTERNAL LAB Blood Historical Provider LAB BLOOD ORDERABLES Paulette l Result EXTERNAL LAB * (ABNORMAL) CBC with auto differential (10/11/2024) SCRIBED WBC 9.5 3.8 - 10.8 k/cumm EXTERNAL LAB SCRIBED Hemoglobin 12.5(A) 13.2 - 17.1 g/dL EXTERNAL LAB SCRIBED Hematocrit 39.3 38.5 - 50.0 % EXTERNAL LAB SCRIBED Platelets 228 140 - 400 k/cumm EXTERNAL LAB Blood 10/11/2024 us Thompson Napoles MD LAB BLOOD ORDERABLES Fin al Result Performing Organization Address [facility]/ZIP Co de Phone Number EXTERNAL LAB * (ABNORMAL) Lactate dehydrogenase (LD) (10/11/2024) SCRIBED LDH 337(A) 120 - 250 IUnit/mL [facility] Blood 10/11/2024 us Thompson Napoles MD LAB BLOOD ORDERABLES Fin al Result Performing Organization Address [facility] de Phone Number [facility] * (ABNORMAL) Comprehensive metabolic panel (10/11/2024) SCRIBED Sodium 134(A) 135 - 146 mmol/L [facility] Potassium 4.1 3.5 - 5.3 mmol/L [facility] Chloride 100 98 - 110 mmol/L [facility] Carbon Dioxide 28 20 - 32 mmol/L [facility] Urea Nitrogen (BUN) 19 7 - 25 mg/dl [facility] Creatinine 0.88 0.70 - 1.22 mg/dl [facility] Glucose 250(A) 65 - 99 mg/dl [facility] Calcium 9.0 8.6 - 10.3 mg/dl [facility] Bilirubin 0.6 0.2 - 1.2 mg/dl [facility] Plasma Protein 6.4 6.1 - 8.1 g/dl [facility] Albumin 3.7 3.6 - 5.1 g/dl [facility] Alkaline Phosphatase 97 35 - 144 Units/L [facility] Alanine Transaminase (ALT) 14 9 - 46 Units/L [facility] Aspartate Transaminase (AST) 19 10 - 35 Units/L [facility] eGFR in NonAfrican Finnish 86 >60 [facility] A/G Ratio 1.4 1.0 - 2.5 [facility] Blood 10/11/2024 us Thompson Napoles MD LAB BLOOD ORDERABLES Hi jailene Result - Final [facility] * (ABNORMAL) CS GLUCOSE (10/05/2024 5:04 AM CDT) Glucose 204(H) 70 - 199 mg/dL [facility] Comment: Interpretive Data Fasting glucose >/= 126 mg/dl is diagnostic for diabetes. Fasting is defined as no caloric intake for at least 8 hours. Fasting glucose between 100 mg/dl to 125 mg/dl is diagnostic of prediabetes. In a patient with classic symptoms of hyperglycemia or hyperglycemic crisis, a random glucose >/= 200 mg/dl is diagnostic for diabetes. In the absence of unequivocal hyperglycemia, results should be confirmed by repeat testing. The classification and Diagnosis of Diabetes Diabetes Care 2021; 46: S19-S40. Current interpretive data was last revised 2022. Testing performed by: [facility], [address] [facility], [place]., [address] Blood 10/05/2024 5:04 AM CDT 10/05/2024 8:29 AM CDT us Carlos Hatch MD LAB BLOOD ORDERABLES Final Re sult Performing Organization Address [facility] de Phone Number [facility] [place] [address] * eGFR (10/05/2024 5:04 AM CDT) eGFR 66 >=60 mL/min/1. 73 m2 [facility] Comment: Interpretive Data Reference Interval Normal >/= 90 mL/min/1.73m2 Mildly decreased* 60 - 89 mL/min/1.73m2 Mildly to moderately decreased 45 - 59 mL/min/1.73m2 Moderately to severely decreased 30 - 44 mL/min/1.73m2 Severely decreased 15 - 29 mL/min/1.73m2 Kidney Failure < 15 mL/min/1.73m2 *Relative to young adult level Estimated glomerular filtration rate is determined by the 2020 CKD-EPI equation recommended by the National Kidney [employer] (A Unifying Approach to GFR Estimation: Recommendations of the NKF-ASK Task Force on Reassessing the Inclusion of Race in Diagnosing Kidney Disease, JASN 2020). The CKD-EPI equation should not be used for patients with unstable renal function and has not been validated in children and those over 70. Current interpretive data was last reviewed 2021. Testing performed by: [facility], [address] [place] [address] Blood 10/05/2024 5:04 AM CDT 10/05/2024 8:29 AM CDT us Carlos Hatch MD LAB BLOOD ORDERABLES Final Re sult [facility] [place] [address] * (ABNORMAL) Differential, auto (10/05/2024 5:04 AM CDT) Neutrophil abs 5.20 1.50 - 6.50 K/cumm [facility] Comment:Testing performed by : [facility], [address] [place] [address] Imm gran abs 0.04 0.00 - 0.10 K/cumm [facility] Comment:Testing performed by : [facility], [address] [place] [address]., [address] Lymphocyte abs 0.75(L) 0.80 - 3.30 K/cumm [facility] Comment:Testing performed by : [facility], [address] [place] [address]., [address] Monocyte abs 0.59 0.20 - 0.80 K/cumm [facility] Comment:Testing performed by : [facility], [address] [place]., [address] Eosinophil abs 0.13 0.00 - 0.50 K/cumm [facility] Comment:Testing performed by : [facility], [address] [place]., [address] Basophil abs 0.07 0.00 - 0.10 K/cumm [facility] Comment:Testing performed by : [facility], [address] [place]., [address] Neutrophil pct 76.7 % [facility] Comment: Interpretive Data Percent cell count reference ranges are not reported, since discordance with absolute values may lead to misinterpretation of CBC data. Current Interpretive Data was last revised on 2017. Testing performed by: [facility], [address] [place] [address] Imm gran pct 0.6 % [facility] Comment: Interpretive Data Percent cell count reference ranges are not reported, since discordance with absolute values may lead to misinterpretation of CBC data. Current Interpretive Data was last revised on 2017. Testing performed by: [facility], [address] [place] [address] Lymphocyte pct 11.1 % [facility] Comment: Interpretive Data Percent cell count reference ranges are not reported, since discordance with absolute values may lead to misinterpretation of CBC data. Current Interpretive Data was last revised on 2017. Testing performed by: [facility], [address] [place] [address] Monocyte pct 8.7 % [facility] Comment: Interpretive Data Percent cell count reference ranges are not reported, since discordance with absolute values may lead to misinterpretation of CBC data. Current Interpretive Data was last revised on 2017. Testing performed by: [facility], [address] [place] [address] Eosinophil pct 1.9 % [facility] Comment: Interpretive Data Percent cell count reference ranges are not reported, since discordance with absolute values may lead to misinterpretation of CBC data. Current Interpretive Data was last revised on 2017. Testing performed by: [facility], [address] [place] [address] Basophil pct 1.0 % [facility] Comment: Interpretive Data Percent cell count reference ranges are not reported, since discordance with absolute values may lead to misinterpretation of CBC data. Current Interpretive Data was last revised on 2017. Testing performed by: [facility], [address] [place] [address] Blood 10/05/2024 5:04 AM CDT 10/05/2024 8:09 AM CDT us Carlos Hatch MD LAB BLOOD ORDERABLES Final Re sult [facility] [place] [address] * (ABNORMAL) Comprehensive metabolic panel, without glucose (Outreach) (10/05/2024 5:04 AM CDT) Sodium 137 135 - 145 mmol/L [facility] Comment:Testing performed by : [facility], [address] [place] [address] Potassium, pl 3.9 3.3 - 4.9 mmol/L [facility] Comment:Testing performed by : [facility], [address] [place] [address] Chloride 100 97 - 110 mmol/L [facility] Comment:Testing performed by : [facility], [address] [place] [address] CO2 25 22 - 32 mmol/L [facility] Comment:Testing performed by : [facility], [address] [place] [address]., [address] Anion gap 12 2 - 15 mmol/L [facility] Comment:Testing performed by : [facility], [address] [facility], [address] BUN 24 6 - 25 mg/dL [facility] Comment:Testing performed by : [facility], [address] [place] [address] Creatinine 1.12 0.80 - 1.30 mg/dL [facility] Comment:Testing performed by : [facility], [address] [facility], [address] Calcium 8.9 8.5 - 10.3 mg/dL [facility] Comment:Testing performed by : [facility], [address] [facility], [address] Protein, pl 6.1(L) 6.5 - 8.5 g/dL [facility] Comment:Testing performed by : [facility], [address] [facility], [address] Albumin 3.2(L) 3.5 - 5.0 g/dL [facility] Comment:Testing performed by : [facility], [address] [facility], [address] Bilirubin, total 0.4 0.1 - 1.2 mg/dL [facility] Comment:Testing performed by : [facility], [address] [facility], [address] Alk phos 93 40 - 130 Units/L [facility] Comment:Testing performed by : [facility], [address] [facility], [address] AST 23 10 - 50 Units/L [facility] Comment:Testing performed by : [facility], [address] [place] [address], [address] ALT 13 7 - 55 Units/L [facility] Comment:Testing performed by : [facility], [address] [place] [address], [address] Blood 10/05/2024 5:04 AM CDT 10/05/2024 8:29 AM CDT us Carlos Hatch MD LAB BLOOD ORDERABLES Final Re sult [facility] [place] [address] * (ABNORMAL) CBC with auto differential (10/05/2024 5:04 AM CDT) WBC 6.78 3.80 - 9.90 K/cumm [facility] Comment:Testing performed by : [facility], [address] [facility], [address] Hgb 11.3(L) 13.0 - 17.5 g/dL [facility] Comment:Testing performed by : [facility], [address] [facility], [address] Hct 34.7(L) 38.9 - 50.3 % [facility] Comment:Testing performed by : [facility], [address] [facility], [address] Plt 219 150 - 400 K/cumm [facility] Comment:Testing performed by : [facility], [address] [facility], [address] MPV 11.6 9.1 - 12.3 fL [facility] Comment:Testing performed by : [facility], [address] [facility], [address] RBC 4.03(L) 4.30 - 5.80 M/cumm [facility] Comment:Testing performed by : [facility], [address] [place] [address], [address] MCV 86.1 81.3 - 96.4 fL [facility] Comment:Testing performed by : [facility], [address] [place] [address], [address] MCH 28.0 27.1 - 33.3 pg [facility] Comment:Testing performed by : [facility], [address] [place] [address], [address] MCHC 32.6 32.3 - 35.7 g/dL [facility] Comment:Testing performed by : [facility], [address] [place] [address], [address] RDW CV 15.9(H) 11.1 - 14.9 % [facility] Comment:Testing performed by : [facility], [address] [place] [address] RDW SD 49.5(H) 35.7 - 48.1 fL [facility] Comment:Testing performed by : [facility], [address] [place] [address] NRBC abs 0.00 0.00 - 0.01 K/cumm [facility] Comment:Testing performed by : [facility], [address] [facility], [address] Blood 10/05/2024 5:04 AM CDT 10/05/2024 8:09 AM CDT us Carlos Hatch MD LAB BLOOD ORDERABLES Final Re sult [facility] [place] [address] * (ABNORMAL) Protime-INR (10/04/2024 4:15 AM CDT) PT 24.1(H) 9.7 - 13.0 sec [facility] Comment:Testing performed by : [facility], [address] [place] [address] INR 2.20(H) 0.90 - 1.20 [facility] Comment: Interpretive data Oral anticoagulant therapeutic ranges: Venous thromboembolism prophylaxis or treatment: 2.0-3.0 CARDIOLOGY Standard range: 2.0-3.0 High-intensity range: 2.5-3.5 Refer to indication-specific guidelines for appropriate target ranges for prosthetic heart valve replacement. Current interpretive data was last revised on 2019. Testing performed by: [facility], [address] [place]., [address] Blood 10/04/2024 4:15 AM CDT 10/04/2024 8:31 AM CDT us Carlos Hatch MD LAB BLOOD ORDERABLES Final Re sult Performing Organization Address [facility] Co de Phone Number [facility] [place] [address] * (ABNORMAL) Protime-INR (10/03/2024 2:27 PM CDT) PT 28.8(H) 9.7 - 13.0 sec [facility] Comment:Testing performed by : [facility], [address] [place] [address]., [address] INR 2.61(H) 0.90 - 1.20 [facility] Comment: Interpretive data Oral anticoagulant therapeutic ranges: Venous thromboembolism prophylaxis or treatment: 2.0-3.0 CARDIOLOGY Standard range: 2.0-3.0 High-intensity range: 2.5-3.5 Refer to indication-specific guidelines for appropriate target ranges for prosthetic heart valve replacement. Current interpretive data was last revised on 2019. Testing performed by: [facility], [address] [place] [address]., [address] Blood 10/03/2024 2:27 PM CDT 10/03/2024 2:41 PM CDT Carlos Hatch MD LAB BLOOD ORDERABLES Final Re sult Performing Organization Address [facility] Co de Phone Number [facility] [place] [address] * (ABNORMAL) Protime-INR (10/02/2024 5:57 AM CDT) PT 26.4(H) 9.7 - 13.0 sec [facility] Comment:Testing performed by : [facility], [address] [place] [address]., [address] INR 2.40(H) 0.90 - 1.20 [facility] Comment: Interpretive data Oral anticoagulant therapeutic ranges: Venous thromboembolism prophylaxis or treatment: 2.0-3.0 CARDIOLOGY Standard range: 2.0-3.0 High-intensity range: 2.5-3.5 Refer to indication-specific guidelines for appropriate target ranges for prosthetic heart valve replacement. Current interpretive data was last revised on 2019. Testing performed by: [facility], [address] [place] [address]., [address] Blood 10/02/2024 5:57 AM CDT 10/02/2024 7:54 AM CDT us Carlos Hatch MD LAB BLOOD ORDERABLES Final Re sult Performing Organization Address [facility]/ZIP Co de Phone Number [facility] [place] [address] * Ammonia (10/01/2024 6:51 AM CDT) Ammonia <20 <=50 mcmol/L [facility] Comment: Repeated and Verified Testing performed by: [facility], [address] [place] [address]., [address] Blood 10/01/2024 6:51 AM CDT 10/01/2024 7:36 AM CDT us Notinfile Unknown LAB BLOOD ORDERABLES Final Res ult Performing Organization Address [facility] Co de Phone Number [facility] [place] [address] * (ABNORMAL) Protime-INR (10/01/2024 6:24 AM CDT) PT 27.5(H) 9.7 - 13.0 sec [facility] Comment:Testing performed by : [address] [address] INR 2.50(H) 0.90 - 1.20 [facility] Comment: Interpretive data Oral anticoagulant therapeutic ranges: Venous thromboembolism prophylaxis or treatment: 2.0-3.0 CARDIOLOGY Standard range: 2.0-3.0 High-intensity range: 2.5-3.5 Refer to indication-specific guidelines for appropriate target ranges for prosthetic heart valve replacement. Current interpretive data was last revised on 2019. Testing performed by: [facility], [address] [facility], [place]., [address] Blood 10/01/2024 6:24 AM CDT 10/01/2024 7:33 AM CDT us Carlos Hatch MD LAB BLOOD ORDERABLES Final Re sult [facility] [place] [address] * CT Head WO Contrast (09/30/2024 12:01 PM CDT) Anatomical Region Laterality Modality Head and Neck N/A Computed Tomogra phy 09/30/2024 2:33 PM CDT Impressions 09/30/2024 3:19 PM CDT 1. No acute intracranial process. 2. Global parenchymal volume loss with severe white matter disease. Dictated by: Vanesa Salinas D.O. The radiology attending physician has personally reviewed this study, and had reviewed and/or edited this written report and agrees with it. Electronically signed by: Bernadette Lopez M.D. Narrative 09/30/2024 3:19 PM CDT EXAMINATION: CT head without contrast HISTORY: Mental status change TECHNIQUE: CT of the head was performed with images acquired from skull base to vertex without intravenous contrast. COMPARISON: CT head 09/12/2024. FINDINGS: There is no acute intracranial hemorrhage. Global parenchymal volume loss with ex vacuo dilatation of the ventricular system. 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 Remote bilateral cerebellar infarcts. 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 No mass effect or midline shift is present. The shaffer-white matter differentiation is normal. Bilateral lens replacement. Left ventricle shunt noted. The visualized portions of the mastoids are normal. The visualized portions of the paranasal sinuses are normal. No fractures are identified. Procedure Note Bernadette Lopez MD - 09/30/2024 EXAMINATION: CT head without contrast HISTORY: Mental status change TECHNIQUE: CT of the head was performed with images acquired from skull base to vertex without intravenous contrast. COMPARISON: CT head 09/12/2024. FINDINGS: There is no acute intracranial hemorrhage. Global parenchymal volume loss with ex vacuo dilatation of the ventricular system. 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 Remote bilateral cerebellar infarcts. 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 No mass effect or midline shift is present. The shaffer-white matter differentiation is normal. Bilateral lens replacement. Left ventricle shunt noted. The visualized portions of the mastoids are normal. The visualized portions of the paranasal sinuses are normal. No fractures are identified. IMPRESSION: 1. No acute intracranial process. 2. Global parenchymal volume loss with severe white matter disease. Dictated by: Vanesa Salinas D.O. The radiology attending physician has personally reviewed this study, and had reviewed and/or edited this written report and agrees with it. Electronically signed by: Bernadette Lopez M.D. us Carlos Hatch MD IMG CT PROCEDURES Final Resul t * Ammonia (09/30/2024 5:31 AM CDT) Ammonia See Comment <=50 mcmol/L [facility] Comment: Credited: Specimen too old Testing performed by: [facility], [address] [facility], [place] [address] Blood 09/30/2024 5:31 AM CDT 09/30/2024 7:34 AM CDT Carlos Hatch MD LAB BLOOD ORDERABLES Final Re sult [facility] Department of Laboratories [place], [place] [id number] * (ABNORMAL) Lactate (09/29/2024 6:59 PM CDT) Lactate 2.2(H) 0.7 - 2.0 mmol/L [facility] Comment:Testing performed by : [facility], [address] [place] [address]., [id number] Blood 09/29/2024 6:59 PM CDT 09/29/2024 7:22 PM CDT Narrative [facility] - 09/29/2024 7:44 PM CDT TSH w/ reflex us Notinfile Unknown LAB BLOOD ORDERABLES Final Res ult [facility] [place] [address] * TSH (09/29/2024 6:00 PM CDT) Pathologist [facility] [place] Thyroid Stimulating Hormone 3.47 0.30 - 4.20 mcIUnit/mL [facility] Comment:Testing performed by : [facility], [address] [place] [address]., [id number] Blood 09/29/2024 6:00 PM CDT 09/29/2024 8:17 PM CDT Narrative [facility] - 09/29/2024 9:06 PM CDT TSH w/ reflex us Notinfile Unknown LAB BLOOD ORDERABLES Final Res ult [facility] Department of Laboratories [place], [place] [id number] * (ABNORMAL) Protime-INR (09/29/2024 7:12 AM CDT) Pathologist [facility] [place] PT 20.8(H) 9.7 - 13.0 sec [facility] Comment:Testing performed by : [facility], [address] [place] [address]., [address] INR 1.90(H) 0.90 - 1.20 [facility] Comment: Interpretive data Oral anticoagulant therapeutic ranges: Venous thromboembolism prophylaxis or treatment: 2.0-3.0 CARDIOLOGY Standard range: 2.0-3.0 High-intensity range: 2.5-3.5 Refer to indication-specific guidelines for appropriate target ranges for prosthetic heart valve replacement. Current interpretive data was last revised on 2019. Testing performed by: [facility], [address] [place] [address]., [id number] Blood 09/29/2024 7:12 AM CDT 09/29/2024 12:39 PM CDT us Carlos Hatch MD LAB BLOOD ORDERABLES Final Re sult [facility] [place] [address] * (ABNORMAL) Protime-INR (09/28/2024 3:37 PM CDT) PT 19.4(H) 9.7 - 13.0 sec [facility] Comment:Testing performed by : [facility], [address] [place] [address]., [id number] INR 1.78(H) 0.90 - 1.20 [facility] Comment: Interpretive data Oral anticoagulant therapeutic ranges: Venous thromboembolism prophylaxis or treatment: 2.0-3.0 CARDIOLOGY Standard range: 2.0-3.0 High-intensity range: 2.5-3.5 Refer to indication-specific guidelines for appropriate target ranges for prosthetic heart valve replacement. Current interpretive data was last revised on 2019. Testing performed by: [facility], [address] [place] [address]., [id number] Blood 09/28/2024 3:37 PM CDT 09/28/2024 7:46 PM CDT Narrative [facility] - 09/28/2024 8:10 PM CDT no blood sample recieved by lab at 1230 - reorder new INR us Notinfile Unknown LAB BLOOD ORDERABLES Final Res ult Performing Organization Address [facility] Co de Phone Number [facility] [place] [address] * (ABNORMAL) CS GLUCOSE (09/28/2024 6:34 AM CDT) Glucose 203(H) 70 - 199 mg/dL [facility] Comment: Interpretive Data Fasting glucose >/= 126 mg/dl is diagnostic for diabetes. Fasting is defined as no caloric intake for at least 8 hours. Fasting glucose between 100 mg/dl to 125 mg/dl is diagnostic of prediabetes. In a patient with classic symptoms of hyperglycemia or hyperglycemic crisis, a random glucose >/= 200 mg/dl is diagnostic for diabetes. In the absence of unequivocal hyperglycemia, results should be confirmed by repeat testing. The classification and Diagnosis of Diabetes Diabetes Care 2021; 46: S19-S40. Current interpretive data was last revised 2022. Testing performed by: [facility], [address] [facility], [place]., [address] Blood 09/28/2024 6:34 AM CDT 09/28/2024 1:06 PM CDT us Carlos Hatch MD LAB BLOOD ORDERABLES Final Re sult Performing Organization Address [facility] Co de Phone Number [facility] Department [place] [address] * eGFR (09/28/2024 6:34 AM CDT) eGFR 89 >=60 mL/min/1. 73 m2 [facility] Comment: Interpretive Data Reference Interval Normal >/= 90 mL/min/1.73m2 Mildly decreased* 60 - 89 mL/min/1.73m2 Mildly to moderately decreased 45 - 59 mL/min/1.73m2 Moderately to severely decreased 30 - 44 mL/min/1.73m2 Severely decreased 15 - 29 mL/min/1.73m2 Kidney Failure < 15 mL/min/1.73m2 *Relative to young adult level Estimated glomerular filtration rate is determined by the 2020 CKD-EPI equation recommended by the National Kidney Foundation (A Unifying Approach to GFR Estimation: Recommendations of the NKF-ASK Task Force on Reassessing the Inclusion of Race in Diagnosing Kidney Disease, JASN 2020). The CKD-EPI equation should not be used for patients with unstable renal function and has not been validated in children and those over 70. Current interpretive data was last reviewed 2021. Testing performed by: [facility], [address] [place]., [address] Blood 09/28/2024 6:34 AM CDT 09/28/2024 1:05 PM CDT us Carlos Hatch MD LAB BLOOD ORDERABLES Final Re sult [facility] [place] [address] * (ABNORMAL) Differential, auto (09/28/2024 6:34 AM CDT) Neutrophil abs 5.76 1.50 - 6.50 K/cumm [facility] Comment:Testing performed by : [facility], [address] [place] [address]., [id number] Imm gran abs 0.04 0.00 - 0.10 K/cumm [facility] Comment:Testing performed by : [facility], [address] [place]., [address] Lymphocyte abs 0.75(L) 0.80 - 3.30 K/cumm [facility] Comment:Testing performed by : [facility], [address] [place] [address] Monocyte abs 0.54 0.20 - 0.80 K/cumm [facility] Comment:Testing performed by : [facility], [address] [place] [address]., [address] Eosinophil abs 0.07 0.00 - 0.50 K/cumm [facility] Comment:Testing performed by : [facility], [address] [place] [address] Basophil abs 0.06 0.00 - 0.10 K/cumm [facility] Comment:Testing performed by : [facility], [address] [place] [address] Neutrophil pct 79.7 % [facility] Comment: Interpretive Data Percent cell count reference ranges are not reported, since discordance with absolute values may lead to misinterpretation of CBC data. Current Interpretive Data was last revised on 2017. Testing performed by: [facility], [address] [place] [address] Imm gran pct 0.6 % [facility] Comment: Interpretive Data Percent cell count reference ranges are not reported, since discordance with absolute values may lead to misinterpretation of CBC data. Current Interpretive Data was last revised on 2017. Testing performed by: [facility], [address] [place] [address] Lymphocyte pct 10.4 % [facility] Comment: Interpretive Data Percent cell count reference ranges are not reported, since discordance with absolute values may lead to misinterpretation of CBC data. Current Interpretive Data was last revised on 2017. Testing performed by: [facility], [address] [place] [address] Monocyte pct 7.5 % [facility] Comment: Interpretive Data Percent cell count reference ranges are not reported, since discordance with absolute values may lead to misinterpretation of CBC data. Current Interpretive Data was last revised on 2017. Testing performed by: [facility], [address] [place] [address] Eosinophil pct 1.0 % [facility] Comment: Interpretive Data Percent cell count reference ranges are not reported, since discordance with absolute values may lead to misinterpretation of CBC data. Current Interpretive Data was last revised on 2017. Testing performed by: [facility], [address] [place] [address] Basophil pct 0.8 % [facility] Comment: Interpretive Data Percent cell count reference ranges are not reported, since discordance with absolute values may lead to misinterpretation of CBC data. Current Interpretive Data was last revised on 2017. Testing performed by: [facility], [address] [place] [address] Blood 09/28/2024 6:34 AM CDT 09/28/2024 1:05 PM CDT us Carlos Hatch MD LAB BLOOD ORDERABLES Final Re sult [facility] [place] [address] * (ABNORMAL) Comprehensive metabolic panel, without glucose (Outreach) (09/28/2024 6:34 AM CDT) Sodium 134(L) 135 - 145 mmol/L [facility] Comment:Testing performed by : [facility], [address] [place] [address] Potassium, pl 4.0 3.3 - 4.9 mmol/L [facility] Comment:Testing performed by : [facility], [address] [place] [address] Chloride 96(L) 97 - 110 mmol/L [facility] Comment:Testing performed by : [facility], [address] [place] [address] CO2 26 22 - 32 mmol/L [facility] Comment:Testing performed by : [facility], [address] [place] [address] Anion gap 12 2 - 15 mmol/L [facility] Comment:Testing performed by : [facility], [address] [place] [address] BUN 27(H) 6 - 25 mg/dL [facility] Comment:Testing performed by : [facility], [address] [facility], [address] Creatinine 0.81 0.80 - 1.30 mg/dL [facility] Comment:Testing performed by : [facility], [address] [facility], [address] Calcium 9.1 8.5 - 10.3 mg/dL [facility] Comment:Testing performed by : [facility], [address] [facility], [address] Protein, pl 7.2 6.5 - 8.5 g/dL [facility] Comment:Testing performed by : [facility], [address] [facility], [address] Albumin 3.6 3.5 - 5.0 g/dL [facility] Comment:Testing performed by : [facility], [address] [facility], [address] Bilirubin, total 0.6 0.1 - 1.2 mg/dL [facility] Comment:Testing performed by : [facility], [address] [facility], [address] Alk phos 109 40 - 130 Units/L [facility] Comment:Testing performed by : [facility], [address] [facility], [address] AST 35 10 - 50 Units/L [facility] Comment:Testing performed by : [facility], [address] [place] [address], [address] ALT 15 7 - 55 Units/L [facility] Comment:Testing performed by : [facility], [address] [facility], [address] Blood 09/28/2024 6:34 AM CDT 09/28/2024 1:05 PM CDT us Carlos Hatch MD LAB BLOOD ORDERABLES Final Re sult [facility] [place] [address] * (ABNORMAL) CBC with auto differential (09/28/2024 6:34 AM CDT) WBC 7.22 3.80 - 9.90 K/cumm [facility] Comment:Testing performed by : [facility], [address] [facility], [address] Hgb 13.3 13.0 - 17.5 g/dL [facility] Comment:Testing performed by : [facility], [address] [facility], [address] Hct 39.8 38.9 - 50.3 % [facility] Comment:Testing performed by : [facility], [address] [facility], [address] Plt 205 150 - 400 K/cumm [facility] Comment:Testing performed by : [facility], [address] [place] [address], [address] MPV 11.5 9.1 - 12.3 fL [facility] Comment:Testing performed by : [facility], [address] [facility], [address] RBC 4.65 4.30 - 5.80 M/cumm [facility] Comment:Testing performed by : [facility], [address] [place] [address], [address] MCV 85.6 81.3 - 96.4 fL [facility] Comment:Testing performed by : [facility], [address] [place] [address], [address] MCH 28.6 27.1 - 33.3 pg [facility] Comment:Testing performed by : [facility], [address] [place] [address], [address] MCHC 33.4 32.3 - 35.7 g/dL [facility] Comment:Testing performed by : [facility], [address] [place] [address]., [address] RDW CV 16.0(H) 11.1 - 14.9 % [facility] Comment:Testing performed by : [facility], [address] [place] [address] RDW SD 49.1(H) 35.7 - 48.1 fL [facility] Comment:Testing performed by : [facility], [address] [place] [address] NRBC abs 0.00 0.00 - 0.01 K/cumm [facility] Comment:Testing performed by : [facility], [address] [facility], [address] Blood 09/28/2024 6:34 AM CDT 09/28/2024 1:05 PM CDT us Carlos Hatch MD LAB BLOOD ORDERABLES Final Re sult [facility] [place] [address] * (ABNORMAL) Protime-INR (09/28/2024 6:34 AM CDT) PT 20.5(H) 9.7 - 13.0 sec [facility] Comment:Testing performed by : [facility], [address] [facility], [address] INR 1.87(H) 0.90 - 1.20 [facility] Comment: Interpretive data Oral anticoagulant therapeutic ranges: Venous thromboembolism prophylaxis or treatment: 2.0-3.0 CARDIOLOGY Standard range: 2.0-3.0 High-intensity range: 2.5-3.5 Refer to indication-specific guidelines for appropriate target ranges for prosthetic heart valve replacement. Current interpretive data was last revised on 2019. Testing performed by: [facility], [address] [place] [address] Blood 09/28/2024 6:34 AM CDT 09/28/2024 2:02 PM CDT Carlos Hatch MD LAB BLOOD ORDERABLES Final Re sult Performing Organization Address [facility] Co de Phone Number [facility] [place] [address] * (ABNORMAL) Protime-INR (09/27/2024 5:05 PM CDT) PT 21.8(H) 9.7 - 13.0 sec [facility] Comment:Testing performed by : [facility], [address] [place] [address]., [address] INR 1.99(H) 0.90 - 1.20 [facility] Comment: Interpretive data Oral anticoagulant therapeutic ranges: Venous thromboembolism prophylaxis or treatment: 2.0-3.0 CARDIOLOGY Standard range: 2.0-3.0 High-intensity range: 2.5-3.5 Refer to indication-specific guidelines for appropriate target ranges for prosthetic heart valve replacement. Current interpretive data was last revised on 2019. Testing performed by: [facility], [address] [place] [address]., [address] Blood 09/27/2024 5:05 PM CDT 09/27/2024 5:[address] [facility] LAB BLOOD ORDERABLES Final Resul t Performing Organization Address [facility] Co de Phone Number [facility] [place] [address] * (ABNORMAL) CS GLUCOSE (09/27/2024 5:00 AM CDT) Glucose 223(H) 70 - 199 mg/dL [facility] Comment: Interpretive Data Fasting glucose >/= 126 mg/dl is diagnostic for diabetes. Fasting is defined as no caloric intake for at least 8 hours. Fasting glucose between 100 mg/dl to 125 mg/dl is diagnostic of prediabetes. In a patient with classic symptoms of hyperglycemia or hyperglycemic crisis, a random glucose >/= 200 mg/dl is diagnostic for diabetes. In the absence of unequivocal hyperglycemia, results should be confirmed by repeat testing. The classification and Diagnosis of Diabetes Diabetes Care 202; 46: S19-S40. Current interpretive data was last revised 2022. Testing performed by: [facility], [address] [place] [address] Blood 09/27/2024 5:00 AM CDT 09/27/2024 6:57 AM CDT us Carlos Hatch MD LAB BLOOD ORDERABLES Final Re sult [facility] [place] [address] * (ABNORMAL) CS BASIC METABOLIC PANEL (09/27/2024 5:00 AM CDT) Sodium 134(L) 135 - 145 mmol/L [facility] Comment:Testing performed by : [facility], [address] [place] [address]., [address] Potassium, pl 4.0 3.3 - 4.9 mmol/L [facility] Comment:Testing performed by : [facility], [address] [place] [address]., [address] Chloride 97 97 - 110 mmol/L [facility] Comment:Testing performed by : [facility], [address] [place] [address] CO2 28 22 - 32 mmol/L [facility] Comment:Testing performed by : [facility], [address] [place] [address]., [address] Anion gap 9 2 - 15 mmol/L [facility] Comment:Testing performed by : [facility], [address] [place] [address] BUN 38(H) 6 - 25 mg/dL [facility] Comment:Testing performed by : [facility], [address] [place] [address] Creatinine 1.05 0.80 - 1.30 mg/dL [facility] Comment:Testing performed by : [facility], [address] [place] [address] Calcium 9.5 8.5 - 10.3 mg/dL [facility] Comment:Testing performed by : [facility], [address] [place]., [address] Blood 09/27/2024 5:00 AM CDT 09/27/2024 6:57 AM CDT Carlos Hatch MD LAB BLOOD ORDERABLES Final Re sult [facility] [place] [address] * eGFR (09/27/2024 5:00 AM CDT) eGFR 71 >=60 mL/min/1. 73 m2 [facility] Comment: Interpretive Data Reference Interval Normal >/= 90 mL/min/1.73m2 Mildly decreased* 60 - 89 mL/min/1.73m2 Mildly to moderately decreased 45 - 59 mL/min/1.73m2 Moderately to severely decreased 30 - 44 mL/min/1.73m2 Severely decreased 15 - 29 mL/min/1.73m2 Kidney Failure < 15 mL/min/1.73m2 *Relative to young adult level Estimated glomerular filtration rate is determined by the 2020 CKD-EPI equation recommended by the National Kidney Foundation (A Unifying Approach to GFR Estimation: Recommendations of the NKF-ASK Task Force on Reassessing the Inclusion of Race in Diagnosing Kidney Disease, JASN 202). The CKD-EPI equation should not be used for patients with unstable renal function and has not been validated in children and those over 70. Current interpretive data was last reviewed 2021. Testing performed by: [facility], [address] [place] [address] Blood 09/27/2024 5:00 AM CDT 09/27/2024 7:39 AM CDT Carlos Hatch MD LAB BLOOD ORDERABLES Final Re sult Performing Organization Address [facility] Co de Phone Number [facility] [place] [address] * (ABNORMAL) Protime-INR (09/26/2024 5:25 AM CDT) PT 25.0(H) 9.7 - 13.0 sec [facility] Comment:Testing performed by : [facility], [address] [place] [address]., [address] INR 2.28(H) 0.90 - 1.20 [facility] Comment: Interpretive data Oral anticoagulant therapeutic ranges: Venous thromboembolism prophylaxis or treatment: 2.0-3.0 CARDIOLOGY Standard range: 2.0-3.0 High-intensity range: 2.5-3.5 Refer to indication-specific guidelines for appropriate target ranges for prosthetic heart valve replacement. Current interpretive data was last revised on 2019. Testing performed by: [facility], [address] [place] [address]., [address] Blood 09/26/2024 5:25 AM CDT 09/26/2024 7:28 AM CDT Carlos Hatch MD LAB BLOOD ORDERABLES Final Re sult Performing Organization Address [facility] Co de Phone Number [facility] [place] [address] * (ABNORMAL) Urinalysis reflex to microscopic and culture Urine (09/26/2024 5:18 AM CDT) Color, ur Yellow Yellow [facility] Comment:Testing performed by : [address] [address] Clarity, ur Clear Clear [facility] Comment:Testing performed by : [facility] [facility], [address] [place] [address] Specific gravity, ur 1.028 1.003 - 1.030 [facility] Comment:Testing performed by : [facility], [address] [facility], [address] pH, urine 5.5 CERNER BJ Comment: Interpretive Data Urine pH is affected by diet, medications, systemic acid-base disturbances, and renal tubular function. pH may affect urinary stone formation. For example, urine pH below 6.0 may help reduce the tendency for calcium phosphate stones and pH greater than 6.0 may reduce the tendency for uric acid stone formation. Source: [facility] [employer] Current Interpretive Data was last revised on 2017 Testing performed by: [facility], [address] [place] [address]., [id number] Protein, ur ql 2+(A) Negative [facility] Comment:Testing performed by : [facility], [address] [place] [address], [id number] Glucose, ur ql Trace(A) Negative [facility] Comment:Testing performed by : [facility], [address] [place] [address], [address] Ketones, ur Trace Negative [facility] Comment:Testing performed by : [facility], [address] [place] [address], [id number] Bilirubin, ur Negative Negative [facility] Comment:Testing performed by : [facility], [address] [place] [address], [id number] Blood, ur 1+(A) Negative [facility] Comment:Testing performed by : [facility], [address] [place] [address], [address] Urobilinogen, ur 2.0(A) <2.0 mg/dL [facility] Comment:Testing performed by : [facility], [address] [place] [address], [address] Nitrite, ur Negative Negative [facility] Comment:Testing performed by : [facility], [address] [place] [address] Leukocyte esterase, ur Negative Negative [facility] Comment:Testing performed by : [facility], [address] [facility], [address] UA reflex comment Reflex to microscopic UA will be performed. [facility] Comment:Testing performed by : [facility], [address] [facility], [address] Urine 09/26/2024 5:18 AM CDT 09/26/2024 7:35 AM CDT us Carlos Hatch MD LAB MICROBIOLOGY - GENERAL OR DERABLES Final Result [facility] [place] [address] * (ABNORMAL) Urinalysis, microscopic only (09/26/2024 5:18 AM CDT) WBC, ur 0-5 0 - 5 /HPF [facility] Comment:Testing performed by : [facility], [address] [facility], [address] RBC, ur 11-20(A) 0 - 2 /HPF [facility] Comment:Testing performed by : [facility], [address] [place] [address], [id number] Mucous, ur Present(A) [facility] Comment:Testing performed by : [facility], [address] [place] [address], [address] Hyaline casts, ur >50(A) 0 - 10 /LPF [facility] Comment:Testing performed by : [facility], [address] [facility], [address] Culture Reflex Comment Reflex conditions for urine culture (WBC >10) not met. [facility] Comment:Testing performed by : [facility], [address] [facility], [address] Urine 09/26/2024 5:18 AM CDT 09/26/2024 7:35 AM CDT us Carlos Hatch MD LAB URINE ORDERABLES Final Re sult [facility] [place] [address] * Blood culture Blood (09/25/2024 9:20 AM CDT) Report Final Report: No growth [facility] Comment:Testing performed by : [facility], [address] [place] [address] Blood 09/25/2024 9:2 0 AM CDT 09/26/2024 3:08 PM CDT Narrative [facility] - 09/29/2024 4:00 PM CDT 1. Blood cultures are incubated for 4 days on a continuously monitored blood culture system. The first report of a negative culture is issued within 24 hours of receipt of the specimen in the laboratory. 2. Positive culture results are reported as soon as they are detected. 3. The most important factor for detection of microbes in the setting of bloodstream infection is the volume of blood submitted for culture. Failure to collect an optimal blood volume can result in false negative blood cultures. 4. For pediatric patients, the recommended blood volume to collect follows a weight based strategy. See the electronic test catalog for collection instructions. 5. For positive blood cultures, a rapid molecular test may be performed for organism identification using the katie ePlex blood culture identification panel for gram positive (BCID-GP) and gram negative (BCID-GN) organisms. This nucleic acid amplification test detects microbial DNA in positive blood culture broth. This assay has been cleared by the [place] Food and Drug Administration and its performance characteristics have been verified by the [facility]. For questions about this culture, contact the Microbiology Laboratory at [phone]. Interpretive data was last revised on 24. us Notinfile Unknown LAB MICROBIOLOGY - GENERAL ORD ERABLES Final Result [facility]IA GRAVES [facility] [place] [address] * Blood culture Blood (09/25/2024 9:20 AM CDT) Report Final Report: Test canceled; patient credited. See new accession number [id number] Blood 09/25/2024 9:20 AM CDT 09/25/2024 3:25 PM CDT Narrative FRANCIA SUBRAMANIAN - 09/26/2024 3:12 PM CDT 1. Blood cultures are incubated for 4 days on a continuously monitored blood culture system. The first report of a negative culture is issued within 24 hours of receipt of the specimen in the laboratory. 2. Positive culture results are reported as soon as they are detected. 3. The most important factor for detection of microbes in the setting of bloodstream infection is the volume of blood submitted for culture. Failure to collect an optimal blood volume can result in false negative blood cultures. 4. For pediatric patients, the recommended blood volume to collect follows a weight based strategy. See the electronic test catalog for collection instructions. 5. For positive blood cultures, a rapid molecular test may be performed for organism identification using the katie ePlex blood culture identification panel for gram positive (BCID-GP) and gram negative (BCID-GN) organisms. This nucleic acid amplification test detects microbial DNA in positive blood culture broth. This assay has been cleared by the [place] Food and Drug Administration and its performance characteristics have been verified by the [facility]. For questions about this culture, contact the Microbiology Laboratory at [phone]. Interpretive data was last revised on 24. us Notinfile Unknown LAB MICROBIOLOGY - GENERAL ORD ERABLES Final Result [facility] GRAV[facility] [place] [address] * Blood culture Blood (09/25/2024 9:15 AM CDT) Report Final Report: No growth FRANCIA SUBRAMANIAN Comment:Testing performed by : [facility], [address] [facility], [place] [address] Blood 09/25/2024 9:15 AM CDT 09/26/2024 3:07 PM CDT Narrative FRANCIA SUBRAMANIAN - 09/29/2024 4:00 PM CDT 1. Blood cultures are incubated for 4 days on a continuously monitored blood culture system. The first report of a negative culture is issued within 24 hours of receipt of the specimen in the laboratory. 2. Positive culture results are reported as soon as they are detected. 3. The most important factor for detection of microbes in the setting of bloodstream infection is the volume of blood submitted for culture. Failure to collect an optimal blood volume can result in false negative blood cultures. 4. For pediatric patients, the recommended blood volume to collect follows a weight based strategy. See the electronic test catalog for collection instructions. 5. For positive blood cultures, a rapid molecular test may be performed for organism identification using the katie ePlex blood culture identification panel for gram positive (BCID-GP) and gram negative (BCID-GN) organisms. This nucleic acid amplification test detects microbial DNA in positive blood culture broth. This assay has been cleared by the [place] Food and Drug Administration and its performance characteristics have been verified by the [facility]. For questions about this culture, contact the Microbiology Laboratory at [phone]. Interpretive data was last revised on 24. us Notinfile Unknown LAB MICROBIOLOGY - GENERAL ORD ERABLES Final Result FRANCIA MARILYNN [facility] Department [place] [address] * Blood culture Blood (09/25/2024 9:15 AM CDT) Report Final Report: Test canceled; patient credited. See new accession number [id number] Blood 09/25/2024 9:15 AM CDT 09/25/2024 3:31 PM CDT Narrative [facility]IA SUBRAMANIAN - 09/26/2024 3:12 PM CDT 1. Blood cultures are incubated for 4 days on a continuously monitored blood culture system. The first report of a negative culture is issued within 24 hours of receipt of the specimen in the laboratory. 2. Positive culture results are reported as soon as they are detected. 3. The most important factor for detection of microbes in the setting of bloodstream infection is the volume of blood submitted for culture. Failure to collect an optimal blood volume can result in false negative blood cultures. 4. For pediatric patients, the recommended blood volume to collect follows a weight based strategy. See the electronic test catalog for collection instructions. 5. For positive blood cultures, a rapid molecular test may be performed for organism identification using the katie ePlex blood culture identification panel for gram positive (BCID-GP) and gram negative (BCID-GN) organisms. This nucleic acid amplification test detects microbial DNA in positive blood culture broth. This assay has been cleared by the [place] Food and Drug Administration and its performance characteristics have been verified by the [facility]. For questions about this culture, contact the Microbiology Laboratory at [phone]. Interpretive data was last revised on 24. us Notinfile Unknown LAB MICROBIOLOGY - GENERAL ORD ERABLES Final Result FR[facility]IA SUBRAMANIAN [facility] [place] [address] * (ABNORMAL) CS GLUCOSE (09/25/2024 9:00 AM CDT) [facility] Signature Glucose 296(H) 70 - 199 mg/dL FRANCIA SUBRAMANIAN Comment: Interpretive Data Fasting glucose >/= 126 mg/dl is diagnostic for diabetes. Fasting is defined as no caloric intake for at least 8 hours. Fasting glucose between 100 mg/dl to 125 mg/dl is diagnostic of prediabetes. In a patient with classic symptoms of hyperglycemia or hyperglycemic crisis, a random glucose >/= 200 mg/dl is diagnostic for diabetes. In the absence of unequivocal hyperglycemia, results should be confirmed by repeat testing. The classification and Diagnosis of Diabetes Diabetes Care 202; 46: S19-S40. Current interpretive data was last revised 2022. Testing performed by: [facility], [address] [place]., [address] Blood 09/25/2024 9:00 AM CDT 09/25/2024 3:[address] [facility] LAB BLOOD ORDERABLES Final Resul t Performing Organization Address [facility] de Phone Number [facility] [place] [address] * eGFR (09/25/2024 9:00 AM CDT) eGFR 65 >=60 mL/min/1. 73 m2 [facility] Comment: Interpretive Data Reference Interval Normal >/= 90 mL/min/1.73m2 Mildly decreased* 60 - 89 mL/min/1.73m2 Mildly to moderately decreased 45 - 59 mL/min/1.73m2 Moderately to severely decreased 30 - 44 mL/min/1.73m2 Severely decreased 15 - 29 mL/min/1.73m2 Kidney Failure < 15 mL/min/1.73m2 *Relative to young adult level Estimated glomerular filtration rate is determined by the 2020 CKD-EPI equation recommended by the National Kidney Foundation (A Unifying Approach to GFR Estimation: Recommendations of the NKF-ASK Task Force on Reassessing the Inclusion of Race in Diagnosing Kidney Disease, JASN 2020). The CKD-EPI equation should not be used for patients with unstable renal function and has not been validated in children and those over 70. Current interpretive data was last reviewed 2021. Testing performed by: [facility], [address] [place] [address] Blood 09/25/2024 9:00 AM CDT 09/25/2024 4:02 PM CDT Medicine LAB BLOOD ORDERABLES Final Resul t Performing Organization Address [facility] Co de Phone Number [facility] [place] [address] * (ABNORMAL) Differential, auto (09/25/2024 9:00 AM CDT) Neutrophil abs 8.94(H) 1.50 - 6.50 K/cumm [facility] Comment:Testing performed by : [facility], [address] [place] [address] Imm gran abs 0.04 0.00 - 0.10 K/cumm [facility] Comment:Testing performed by : [facility], [address] [place] [address] Lymphocyte abs 0.45(L) 0.80 - 3.30 K/cumm [facility] Comment:Testing performed by : [facility], [address] [place] [address] Monocyte abs 0.55 0.20 - 0.80 K/cumm [facility] Comment:Testing performed by : [facility], [address] [place] [address] Eosinophil abs 0.00 0.00 - 0.50 K/cumm [facility] Comment:Testing performed by : [facility], [address] [place] [address] Basophil abs 0.04 0.00 - 0.10 K/cumm [facility] Comment:Testing performed by : [facility], [address] [place] [address] Neutrophil pct 89.2 % [facility]ER [facility] Comment: Interpretive Data Percent cell count reference ranges are not reported, since discordance with absolute values may lead to misinterpretation of CBC data. Current Interpretive Data was last revised on 2017. Testing performed by: [facility], [address] [place] [address] Imm gran pct 0.4 % [facility] Comment: Interpretive Data Percent cell count reference ranges are not reported, since discordance with absolute values may lead to misinterpretation of CBC data. Current Interpretive Data was last revised on 2017. Testing performed by: [facility], [address] [facility], [address] Lymphocyte pct 4.5 % FRANCIA SUBRAMANIAN Comment: Interpretive Data Percent cell count reference ranges are not reported, since discordance with absolute values may lead to misinterpretation of CBC data. Current Interpretive Data was last revised on 2017. Testing performed by: [facility], [address] [place] [address] Monocyte pct 5.5 % FRANCIA SUBRAMANIAN Comment: Interpretive Data Percent cell count reference ranges are not reported, since discordance with absolute values may lead to misinterpretation of CBC data. Current Interpretive Data was last revised on 2017. Testing performed by: [facility], [address] [place] [address]., [address] Eosinophil pct 0.0 % FRANCIA SUBRAMANIAN Comment: Interpretive Data Percent cell count reference ranges are not reported, since discordance with absolute values may lead to misinterpretation of CBC data. Current Interpretive Data was last revised on 2017. Testing performed by: [facility], [address] [place] [address] Basophil pct 0.4 % FRANCIA SUBRAMANIAN Comment: Interpretive Data Percent cell count reference ranges are not reported, since discordance with absolute values may lead to misinterpretation of CBC data. Current Interpretive Data was last revised on 2017. Testing performed by: [facility], [address] [place] [address]., [address] Blood 09/25/2024 9:00 AM CDT 09/25/2024 3:30 PM CDT us Medicine LAB BLOOD ORDERABLES Final Resul t FRANCIA SUBRAMANIAN [facility] [place] [address] * (ABNORMAL) Comprehensive metabolic panel, without glucose (Outreach) (09/25/2024 9:00 AM CDT) Sodium 135 135 - 145 mmol/L FRANCIA GRAVES Comment:Testing performed by : [facility], [address] [facility], [address] Potassium, pl 3.7 3.3 - 4.9 mmol/L CERNER BJ Comment:Testing performed by : [facility], [address] [facility], [address] Chloride 96(L) 97 - 110 mmol/L CERNER BJ Comment:Testing performed by : [facility], [address] [facility], [address] CO2 23 22 - 32 mmol/L [facility] Comment:Testing performed by : [facility], [address] [facility], [address] Anion gap 16(H) 2 - 15 mmol/L C[facility]ER BJ Comment:Testing performed by : [facility], [address] [facility], [address] BUN 25 6 - 25 mg/dL C[facility]ER BJ Comment:Testing performed by : [facility], [address] [facility], [address] Creatinine 1.13 0.80 - 1.30 mg/dL C[facility]ER [facility]J Comment:Testing performed by : [facility], [address] [facility], [address] Calcium 8.9 8.5 - 10.3 mg/dL C[facility]ER BJ Comment:Testing performed by : [facility], [address] [facility], [address] Protein, pl 6.7 6.5 - 8.5 g/dL [facility]ER [facility] Comment:Testing performed by : [facility], [address] [place] [address], [address] Albumin 3.4(L) 3.5 - 5.0 g/dL [facility] Comment:Testing performed by : [facility], [address] [place] [address], [address] Bilirubin, total 1.0 0.1 - 1.2 mg/dL C[facility]ER BJ Comment:Testing performed by : [facility], [address] [place] [address], [place]., [address] Alk phos 105 40 - 130 Units/L [facility] Comment:Testing performed by : [facility], [address] [facility], [address] AST 24 10 - 50 Units/L [facility] Comment:Testing performed by : [facility], [address] [facility], [address] ALT 16 7 - 55 Units/L [facility] Comment:Testing performed by : [facility], [address] [facility], [address] Blood 09/25/2024 9:00 AM CDT 09/25/2024 3:31 PM CDT Medicine LAB BLOOD ORDERABLES Final Resul t [facility] [place] [address] * (ABNORMAL) CBC with auto differential (09/25/2024 9:00 AM CDT) WBC 10.02(H) 3.80 - 9.90 K/cumm CERVICTOR M [facility] Comment:Testing performed by : [facility], [address] [facility], [address] Hgb 12.5(L) 13.0 - 17.5 g/dL [facility] Comment:Testing performed by : [facility], [address] [facility], [address] Hct 38.3(L) 38.9 - 50.3 % [facility] Comment:Testing performed by : [facility], [address] [facility], [address] Plt 244 150 - 400 K/cumm [facility] Comment:Testing performed by : [facility], [address] [facility], [address] MPV 11.4 9.1 - 12.3 fL [facility] Comment:Testing performed by : [facility], [address] [facility], [address] RBC 4.45 4.30 - 5.80 M/cumm [facility] Comment:Testing performed by : [facility], [address] [facility], [address] MCV 86.1 81.3 - 96.4 fL [facility] Comment:Testing performed by : [facility], [address] [facility], [address] MCH 28.1 27.1 - 33.3 pg [facility] Comment:Testing performed by : [facility], [address] [facility], [address] MCHC 32.6 32.3 - 35.7 g/dL [facility] Comment:Testing performed by : [facility], [address] [facility], [address] RDW CV 15.9(H) 11.1 - 14.9 % [facility] Comment:Testing performed by : [facility], [address] [facility], [address] RDW SD 49.4(H) 35.7 - 48.1 fL [facility] Comment:Testing performed by : [facility], [address] [facility], [address] NRBC abs 0.00 0.00 - 0.01 K/cumm [facility] Comment:Testing performed by : [facility], [address] [facility], [address] Blood 09/25/2024 9:00 AM CDT 09/25/2024 3:30 PM CDT Medicine LAB BLOOD ORDERABLES Final Resul t [facility] [place] [address] * (ABNORMAL) Protime-INR (09/25/2024 5:12 AM CDT) PT 30.5(H) 9.7 - 13.0 sec [facility] Comment:Testing performed by : [facility], [address] [place] [address] INR 2.77(H) 0.90 - 1.20 [facility] Comment: Interpretive data Oral anticoagulant therapeutic ranges: Venous thromboembolism prophylaxis or treatment: 2.0-3.0 CARDIOLOGY Standard range: 2.0-3.0 High-intensity range: 2.5-3.5 Refer to indication-specific guidelines for appropriate target ranges for prosthetic heart valve replacement. Current interpretive data was last revised on 2019. Testing performed by: [facility], [address] [place] [address]., [address] Blood 09/25/2024 5:12 AM CDT 09/25/2024 8:15 AM CDT us Carlos Hatch MD LAB BLOOD ORDERABLES Final Re sult [facility] [place] [address] * (ABNORMAL) Protime-INR (09/24/2024 5:58 AM CDT) PT 31.5(H) 9.7 - 13.0 sec [facility] Comment:Testing performed by : [facility], [address] [place] [address]., [address] INR 2.85(H) 0.90 - 1.20 [facility] Comment: Interpretive data Oral anticoagulant therapeutic ranges: Venous thromboembolism prophylaxis or treatment: 2.0-3.0 CARDIOLOGY Standard range: 2.0-3.0 High-intensity range: 2.5-3.5 Refer to indication-specific guidelines for appropriate target ranges for prosthetic heart valve replacement. Current interpretive data was last revised on 2019. Testing performed by: [facility], [address] [place] [address], [place]., [address] Blood 09/24/2024 5:58 AM CDT 09/24/2024 10:07 AM CDT Carlos Hatch MD LAB BLOOD ORDERABLES Final Re sult Performing Organization Address [facility] Co de Phone Number [facility] [place] [address] * (ABNORMAL) Protime-INR (09/23/2024 7:04 AM CDT) PT 34.6(H) 9.7 - 13.0 sec [facility] Comment:Testing performed by : [facility], [address] [place] [address] INR 3.13(H) 0.90 - 1.20 [facility] Comment: Interpretive data Oral anticoagulant therapeutic ranges: Venous thromboembolism prophylaxis or treatment: 2.0-3.0 CARDIOLOGY Standard range: 2.0-3.0 High-intensity range: 2.5-3.5 Refer to indication-specific guidelines for appropriate target ranges for prosthetic heart valve replacement. Current interpretive data was last revised on 2019. Testing performed by: [facility], [address] [place] [address] Blood 09/23/2024 7:04 AM CDT 09/23/2024 7:45 AM CDT Carlos Hatch MD LAB BLOOD ORDERABLES Final Re sult Performing Organization Address [facility] Co de Phone Number [facility] [place] [address] * eGFR (09/21/2024 5:00 AM CDT) eGFR >90 >=60 mL/min/1. 73 m2 [facility] Comment: Interpretive Data Reference Interval Normal >/= 90 mL/min/1.73m2 Mildly decreased* 60 - 89 mL/min/1.73m2 Mildly to moderately decreased 45 - 59 mL/min/1.73m2 Moderately to severely decreased 30 - 44 mL/min/1.73m2 Severely decreased 15 - 29 mL/min/1.73m2 Kidney Failure < 15 mL/min/1.73m2 *Relative to young adult level Estimated glomerular filtration rate is determined by the 2020 CKD-EPI equation recommended by the National Kidney Foundation (A Unifying Approach to GFR Estimation: Recommendations of the NKF-ASK Task Force on Reassessing the Inclusion of Race in Diagnosing Kidney Disease, JASN 2020). The CKD-EPI equation should not be used for patients with unstable renal function and has not been validated in children and those over 70. Current interpretive data was last reviewed 2021. Testing performed by: [facility], [address] [place] [address]., [address] Blood 09/21/2024 5:00 AM CDT 09/21/2024 7:41 AM CDT us Carlos Hatch MD LAB BLOOD ORDERABLES Final Re sult [facility] [place] [address] * (ABNORMAL) Differential, auto (09/21/2024 5:00 AM CDT) Neutrophil abs 5.41 1.50 - 6.50 K/cumm [facility] Comment:Testing performed by : [facility], [address] [place] [address]., [address] Imm gran abs 0.04 0.00 - 0.10 K/cumm [facility] Comment:Testing performed by : [address] [address] Lymphocyte abs 0.67(L) 0.80 - 3.30 K/cumm [facility] Comment:Testing performed by : [facility], [address] [place] [address]., [address] Monocyte abs 0.44 0.20 - 0.80 K/cumm [facility] Comment:Testing performed by : [facility], [address] [place] [address] Eosinophil abs 0.09 0.00 - 0.50 K/cumm [facility] Comment:Testing performed by : [facility], [address] [place] [address] Basophil abs 0.05 0.00 - 0.10 K/cumm [facility] Comment:Testing performed by : [facility], [address] [place] [address] Neutrophil pct 80.8 % [facility] Comment: Interpretive Data Percent cell count reference ranges are not reported, since discordance with absolute values may lead to misinterpretation of CBC data. Current Interpretive Data was last revised on 2017. Testing performed by: [facility], [address] [place] [address] Imm gran pct 0.6 % [facility] Comment: Interpretive Data Percent cell count reference ranges are not reported, since discordance with absolute values may lead to misinterpretation of CBC data. Current Interpretive Data was last revised on 2017. Testing performed by: [facility], [address] [place] [address] Lymphocyte pct 10.0 % [facility] Comment: Interpretive Data Percent cell count reference ranges are not reported, since discordance with absolute values may lead to misinterpretation of CBC data. Current Interpretive Data was last revised on 2017. Testing performed by: [facility], [address] [place] [address] Monocyte pct 6.6 % [facility] Comment: Interpretive Data Percent cell count reference ranges are not reported, since discordance with absolute values may lead to misinterpretation of CBC data. Current Interpretive Data was last revised on 2017. Testing performed by: [facility], [address] [place] [address] Eosinophil pct 1.3 % [facility] Comment: Interpretive Data Percent cell count reference ranges are not reported, since discordance with absolute values may lead to misinterpretation of CBC data. Current Interpretive Data was last revised on 2017. Testing performed by: [facility], [address] [place] [address] Basophil pct 0.7 % [facility] Comment: Interpretive Data Percent cell count reference ranges are not reported, since discordance with absolute values may lead to misinterpretation of CBC data. Current Interpretive Data was last revised on 2017. Testing performed by: [facility], [address] [place] [address] Blood 09/21/2024 5:00 AM CDT 09/21/2024 7:41 AM CDT us Carlos Hatch MD LAB BLOOD ORDERABLES Final Re sult [facility] [place] [address] * (ABNORMAL) Comprehensive metabolic panel, without glucose (Outreach) (09/21/2024 5:00 AM CDT) Sodium 138 135 - 145 mmol/L [facility] Comment:Testing performed by : [facility], [address] [place] [address] Potassium, pl 4.2 3.3 - 4.9 mmol/L [facility] Comment:Testing performed by : [facility], [address] [place] [address] Chloride 102 97 - 110 mmol/L [facility] Comment:Testing performed by : [facility], [address] [place] [address] CO2 27 22 - 32 mmol/L [facility] Comment:Testing performed by : [facility], [address] [place] [address] Anion gap 9 2 - 15 mmol/L [facility] Comment:Testing performed by : [facility], [address] [facility], [address] BUN 20 6 - 25 mg/dL [facility] Comment:Testing performed by : [facility], [address] [facility], [address] Creatinine 0.69(L) 0.80 - 1.30 mg/dL [facility] Comment:Testing performed by : [facility], [address] [facility], [address] Calcium 9.4 8.5 - 10.3 mg/dL [facility] Comment:Testing performed by : [facility], [address] [facility], [address] Protein, pl 7.0 6.5 - 8.5 g/dL [facility] Comment:Testing performed by : [facility], [address] [place] [address], [address] Albumin 3.5 3.5 - 5.0 g/dL [facility] Comment:Testing performed by : [facility], [address] [facility], [address] Bilirubin, total 0.6 0.1 - 1.2 mg/dL [facility] Comment:Testing performed by : [facility], [address] [facility], [address] Alk phos 116 40 - 130 Units/L [facility] Comment:Testing performed by : [facility], [address] [place] [address], [address] AST 28 10 - 50 Units/L [facility] Comment:Testing performed by : [facility], [address] [place] [address], [address] ALT 25 7 - 55 Units/L [facility] Comment:Testing performed by : [facility], [address] [place] [address], [address] Blood 09/21/2024 5:00 AM CDT 09/21/2024 7:41 AM CDT us Carlos Hatch MD LAB BLOOD ORDERABLES Final Re sult [facility] [place] [address] * (ABNORMAL) CBC with auto differential (09/21/2024 5:00 AM CDT) WBC 6.70 3.80 - 9.90 K/cumm [facility] Comment:Testing performed by : [facility], [address] [place] [address], [address] Hgb 13.5 13.0 - 17.5 g/dL [facility] Comment:Testing performed by : [facility], [address] [place] [address], [address] Hct 41.7 38.9 - 50.3 % [facility] Comment:Testing performed by : [facility], [address] [facility], [address] Plt 236 150 - 400 K/cumm [facility] Comment:Testing performed by : [facility], [address] [place] [address], [address] MPV 10.4 9.1 - 12.3 fL [facility] Comment:Testing performed by : [facility], [address] [facility], [address] RBC 4.77 4.30 - 5.80 M/cumm [facility] Comment:Testing performed by : [address], [address] MCV 87.4 81.3 - 96.4 fL [facility] Comment:Testing performed by : [address], [address] MCH 28.3 27.1 - 33.3 pg [facility] Comment:Testing performed by : [address], [address] MCHC 32.4 32.3 - 35.7 g/dL [facility] Comment:Testing performed by : [facility], [address] [place] [address] RDW CV 16.9(H) 11.1 - 14.9 % [facility] Comment:Testing performed by : [facility], [address] [place] [address] RDW SD 53.5(H) 35.7 - 48.1 fL [facility] Comment:Testing performed by : [facility], [address] [place] [address] NRBC abs 0.00 0.00 - 0.01 K/cumm [facility] Comment:Testing performed by : [facility], [address] [place] [address] Blood 09/21/2024 5:00 AM CDT 09/21/2024 7:41 AM CDT us Carlos Hatch MD LAB BLOOD ORDERABLES Final Re sult [facility] [place] [address] * (ABNORMAL) Protime-INR (09/21/2024 5:00 AM CDT) PT 24.8(H) 9.7 - 13.0 sec [facility] Comment:Testing performed by : [facility], [address] [place] [address] INR 2.26(H) 0.90 - 1.20 [facility] Comment: Interpretive data Oral anticoagulant therapeutic ranges: Venous thromboembolism prophylaxis or treatment: 2.0-3.0 CARDIOLOGY Standard range: 2.0-3.0 High-intensity range: 2.5-3.5 Refer to indication-specific guidelines for appropriate target ranges for prosthetic heart valve replacement. Current interpretive data was last revised on 2019. Testing performed by: [facility], [address] [facility], [place]., [address] Blood 09/21/2024 5:00 AM CDT 09/21/2024 7:41 AM CDT us Carlos Hatch MD LAB BLOOD ORDERABLES Final Re sult Performing Organization Address City/[facility]/ZIP Co de Phone Number [facility] [place] [address] * (ABNORMAL) POCT glucose (09/20/2024 4:25 PM CDT) Glucose, POC 272(H) 70 - 199 mg/dL Blood 09/20/2024 4:25 PM CDT 09/20/2024 4:25 PM CDT Liam Avila MD PhD LAB POCT ORDERABLES - DEVICE Final Result Performing Organization Address City/[facility] Co de Phone Number [facility] Department [place] [address] * (ABNORMAL) POCT glucose (09/20/2024 11:23 AM CDT) Glucose, POC 254(H) 70 - 199 mg/dL Blood 09/20/2024 11:2 3 AM CDT 09/20/2024 11:23 AM CDT us Liam Avila MD PhD LAB POCT ORDERABLES - DEVICE Final Result [facility] [place] [address] * POCT glucose (09/20/2024 8:03 AM CDT) Glucose, POC 195 70 - 199 mg/dL Blood 09/20/2024 8:03 AM CDT 09/20/2024 8:03 AM CDT Liam Avila MD PhD LAB POCT ORDERABLES - DEVICE Final Result Performing Organization Address City/[facility] Co de Phone Number [facility] [place] [address] * eGFR (09/20/2024 4:41 AM CDT) eGFR >90 >=60 mL/min/1. 73 m2 Comment: Interpretive Data Reference Interval Normal >/= 90 mL/min/1.73m2 Mildly decreased* 60 - 89 mL/min/1.73m2 Mildly to moderately decreased 45 - 59 mL/min/1.73m2 Moderately to severely decreased 30 - 44 mL/min/1.73m2 Severely decreased 15 - 29 mL/min/1.73m2 Kidney Failure < 15 mL/min/1.73m2 *Relative to young adult level Estimated glomerular filtration rate is determined by the 2020 CKD-EPI equation recommended by the National Kidney Foundation (A Unifying Approach to GFR Estimation: Recommendations of the NKF-ASK Task Force on Reassessing the Inclusion of Race in Diagnosing Kidney Disease, JASN 2020). The CKD-EPI equation should not be used for patients with unstable renal function and has not been validated in children and those over 70. Current interpretive data was last reviewed 2021. Blood 09/20/2024 4:41 AM CDT 09/20/2024 5:22 AM CDT Liam Avila MD PhD LAB BLOOD ORDERABLES F inal Result Performing Organization Address City/[facility]/ZIP Co de Phone Number [facility] [place] [address] * (ABNORMAL) Protime-INR (09/20/2024 4:41 AM CDT) PT 24.7(H) 9.7 - 13.0 sec INR 2.25(H) 0.90 - 1.20 [facility] Comment: Interpretive data Oral anticoagulant therapeutic ranges: Venous thromboembolism prophylaxis or treatment: 2.0-3.0 CARDIOLOGY Standard range: 2.0-3.0 High-intensity range: 2.5-3.5 Refer to indication-specific guidelines for appropriate target ranges for prosthetic heart valve replacement. Current interpretive data was last revised on 2019. Blood 09/20/2024 4:41 AM CDT 09/20/2024 5:27 AM CDT us Liam Avila MD PhD LAB BLOOD ORDERABLES F inal Result [facility] [place] [address] * (ABNORMAL) Basic metabolic panel (09/20/2024 4:41 AM CDT) Sodium 138 135 - 145 mmol/L Potassium, pl 4.2 3.3 - 4.9 mmol/L [facility] Chloride 101 97 - 110 mmol/L [facility] CO2 27 22 - 32 mmol/L [facility] Anion gap 10 2 - 15 mmol/L [facility] BUN 19 6 - 25 mg/dL [facility] Creatinine 0.65(L) 0.80 - 1.30 mg/dL [facility] Glucose 184 70 - 199 mg/dL [facility] Comment: Interpretive Data Fasting glucose >/= 126 mg/dl is diagnostic for diabetes. Fasting is defined as no caloric intake for at least 8 hours. Fasting glucose between 100 mg/dl to 125 mg/dl is diagnostic of prediabetes. In a patient with classic symptoms of hyperglycemia or hyperglycemic crisis, a random glucose >/= 200 mg/dl is diagnostic for diabetes. In the absence of unequivocal hyperglycemia, results should be confirmed by repeat testing. The classification and Diagnosis of Diabetes Diabetes Care 2022; 46: S19-S40. Current interpretive data was last revised 2022. Calcium 9.5 8.5 - 10.3 mg/dL [facility] Blood 09/20/2024 4:41 AM CDT 09/20/2024 5:22 AM CDT Liam Avila MD PhD LAB BLOOD ORDERABLES F inal Result Performing Organization Address [facility] Co de Phone Number [facility] [place] [address] * (ABNORMAL) POCT glucose (09/19/2024 7:44 PM CDT) Glucose, POC 205(H) 70 - 199 mg/dL Blood 09/19/2024 7:44 PM CDT 09/19/2024 7:44 PM CDT Liam Avila MD PhD LAB POCT ORDERABLES - DEVICE Final Result Performing Organization Address [facility] de Phone Number [facility] [place] [address] * (ABNORMAL) POCT glucose (09/19/2024 4:48 PM CDT) Glucose, POC 217(H) 70 - 199 mg/dL Comment:Glu2: RN/MD Notified Glucose comment 1 Glu2: RN/MD Notified [facility] Blood 09/19/2024 4:48 PM CDT 09/19/2024 4:48 PM CDT Liam Avila MD PhD LAB POCT ORDERABLES - DEVICE Final Result Performing Organization Address [facility] Co de Phone Number [facility] [place] [address] * (ABNORMAL) POCT glucose (09/19/2024 11:38 AM CDT) Glucose, POC 239(H) 70 - 199 mg/dL Comment:Glu2: RN/MD Notified Glucose comment 1 Glu2: RN/MD Notified [facility] Blood 09/19/2024 11:3 8 AM CDT 09/19/2024 11:38 AM CDT Liam Avila MD PhD LAB POCT ORDERABLES - DEVICE Final Result Performing Organization Address City/State/[facility] Co de Phone Number [facility] [place] [address] * (ABNORMAL) POCT glucose (09/19/2024 9:08 AM CDT) Glucose, POC 233(H) 70 - 199 mg/dL Blood 09/19/2024 9:08 AM CDT 09/19/2024 9:08 AM CDT Liam Avila MD PhD LAB POCT ORDERABLES - DEVICE Final Result Performing Organization Address City/[facility] Co de Phone Number [facility] [place] [address] * eGFR (09/19/2024 3:25 AM CDT) eGFR >90 >=60 mL/min/1. 73 m2 Comment: Interpretive Data Reference Interval Normal >/= 90 mL/min/1.73m2 Mildly decreased* 60 - 89 mL/min/1.73m2 Mildly to moderately decreased 45 - 59 mL/min/1.73m2 Moderately to severely decreased 30 - 44 mL/min/1.73m2 Severely decreased 15 - 29 mL/min/1.73m2 Kidney Failure < 15 mL/min/1.73m2 *Relative to young adult level Estimated glomerular filtration rate is determined by the 2020 CKD-EPI equation recommended by the National Kidney Foundation (A Unifying Approach to GFR Estimation: Recommendations of the NKF-ASK Task Force on Reassessing the Inclusion of Race in Diagnosing Kidney Disease, JASN 2020). The CKD-EPI equation should not be used for patients with unstable renal function and has not been validated in children and those over 70. Current interpretive data was last reviewed 2021. Blood 09/19/2024 3:25 AM CDT 09/19/2024 4:57 AM CDT Result [facility] Liam Avila MD PhD LAB BLOOD ORDERABLES F inal Result Performing Organization Address [facility] de Phone Number [facility] [place] [address] * (ABNORMAL) Protime-INR (09/19/2024 3:25 AM CDT) Pathologist [facility] PT 23.9(H) 9.7 - 13.0 sec INR 2.18(H) 0.90 - 1.20 [facility] Comment: Interpretive data Oral anticoagulant therapeutic ranges: Venous thromboembolism prophylaxis or treatment: 2.0-3.0 CARDIOLOGY Standard range: 2.0-3.0 High-intensity range: 2.5-3.5 Refer to indication-specific guidelines for appropriate target ranges for prosthetic heart valve replacement. Current interpretive data was last revised on 2019. Blood 09/19/2024 3:25 AM CDT 09/19/2024 4:23 AM CDT Liam Avila MD PhD LAB BLOOD ORDERABLES F inal Result Performing Organization Address [facility] [place] [address] * (ABNORMAL) CBC without differential (09/19/2024 3:25 AM CDT) WBC 5.00 3.80 - 9.90 K/cumm Hgb 11.9(L) 13.0 - 17.5 g/dL [facility] Hct 36.9(L) 38.9 - 50.3 % [facility] Plt 240 150 - 400 K/cumm [facility] MPV 10.3 9.1 - 12.3 fL [facility] RBC 4.31 4.30 - 5.80 M/cumm [facility] MCV 85.6 81.3 - 96.4 fL [facility] MCH 27.6 27.1 - 33.3 pg [facility] MCHC 32.2(L) 32.3 - 35.7 g/dL [facility] RDW CV 16.7(H) 11.1 - 14.9 % [facility] RDW SD 51.2(H) 35.7 - 48.1 fL [facility] NRBC abs 0.00 0.00 - 0.01 K/cumm [facility] Blood 09/19/2024 3:25 AM CDT 09/19/2024 4:26 AM CDT Margarette Lai [employer] LAB BLOOD ORDERABLES Final Result Performing Organization Address City/[facility]/ZIP Co de Phone Number [facility] [place] [address] * Magnesium (09/19/2024 3:25 AM CDT) Pathologist [facility] Magnesium 1.8 1.4 - 2.5 mg/dL Blood 09/19/2024 3:25 AM CDT 09/19/2024 4:50 AM CDT us Liam Avila MD PhD LAB BLOOD ORDERABLES F inal Result Performing Organization Address City/[facility]/ZIP Co de Phone Number [facility] [place] [address] * Hepatic function panel (09/19/2024 3:25 AM CDT) Bilirubin, total 0.4 0.1 - 1.2 mg/dL Bilirubin, direct <0.2 0.1 - 0.3 mg/dL [facility] Protein, pl 6.7 6.5 - 8.5 g/dL [facility] Albumin 3.5 3.5 - 5.0 g/dL [facility] Alk phos 100 40 - 130 Units/L [facility] ALT 46 7 - 55 Units/L [facility] Comment:Reviewed AST 50 10 - 50 Units/L [facility] Blood 09/19/2024 3:25 AM CDT 09/19/2024 4:50 AM CDT us Margarette Lai [employer] LAB BLOOD ORDERABLES Final Result [facility] [place] [address] * (ABNORMAL) Basic metabolic panel (09/19/2024 3:25 AM CDT) [facility] Sodium 137 135 - 145 mmol/L Potassium, pl 3.8 3.3 - 4.9 mmol/L [facility] Chloride 101 97 - 110 mmol/L [facility] CO2 28 22 - 32 mmol/L [facility] Anion gap 8 2 - 15 mmol/L [facility] BUN 16 6 - 25 mg/dL [facility] Creatinine 0.66(L) 0.80 - 1.30 mg/dL [facility] Glucose 195 70 - 199 mg/dL [facility] Comment: Interpretive Data Fasting glucose >/= 126 mg/dl is diagnostic for diabetes. Fasting is defined as no caloric intake for at least 8 hours. Fasting glucose between 100 mg/dl to 125 mg/dl is diagnostic of prediabetes. In a patient with classic symptoms of hyperglycemia or hyperglycemic crisis, a random glucose >/= 200 mg/dl is diagnostic for diabetes. In the absence of unequivocal hyperglycemia, results should be confirmed by repeat testing. The classification and Diagnosis of Diabetes Diabetes Care 2021; 46: S19-S40. Current interpretive data was last revised 2022. Calcium 9.3 8.5 - 10.3 mg/dL [facility] Blood 09/19/2024 3:25 AM CDT 09/19/2024 4:50 AM CDT us Liam Avila MD PhD LAB BLOOD ORDERABLES F inal Result Performing Organization Address [facility]/ZIP Co de Phone Number [facility] [place] [address] * (ABNORMAL) POCT glucose (09/18/2024 7:44 PM CDT) Glucose, POC 236(H) 70 - 199 mg/dL Blood 09/18/2024 7:44 PM CDT 09/18/2024 7:44 PM CDT Liam Avila MD PhD LAB POCT ORDERABLES - DEVICE Final Result Performing Organization Address City/[facility]/ZIP Co de Phone Number [facility] [place] [address] * POCT glucose (09/18/2024 4:42 PM CDT) Glucose, POC 162 70 - 199 mg/dL Blood 09/18/2024 4:42 PM CDT 09/18/2024 4:42 PM CDT Liam Avila MD PhD LAB POCT ORDERABLES - DEVICE Final Result Performing Organization Address City/[facility] Co de Phone Number [facility] [place] [address] * (ABNORMAL) POCT glucose (09/18/2024 11:48 AM CDT) Glucose, POC 205(H) 70 - 199 mg/dL Blood 09/18/2024 11:4 8 AM CDT 09/18/2024 11:48 AM CDT Liam Avila MD PhD LAB POCT ORDERABLES - DEVICE Final Result Performing Organization Address City/[facility]/ZIP Co de Phone Number [facility] [place] [address] * POCT glucose (09/18/2024 7:39 AM CDT) Glucose, POC 180 70 - 199 mg/dL Blood 09/18/2024 7:39 AM CDT 09/18/2024 7:39 AM CDT us Liam Avila MD PhD LAB POCT ORDERABLES - DEVICE Final Result Performing Organization Address City/[facility] Co de Phone Number [facility] [place] [address] * POCT glucose (09/18/2024 7:33 AM CDT) Glucose, POC 173 70 - 199 mg/dL Blood 09/18/2024 7:33 AM CDT 09/18/2024 7:33 AM CDT Liam Avila MD PhD LAB POCT ORDERABLES - DEVICE Final Result Performing Organization Address [facility] de Phone Number [facility] [place] [address] * eGFR (09/18/2024 3:27 AM CDT) eGFR >90 >=60 mL/min/1. 73 m2 Comment: Interpretive Data Reference Interval Normal >/= 90 mL/min/1.73m2 Mildly decreased* 60 - 89 mL/min/1.73m2 Mildly to moderately decreased 45 - 59 mL/min/1.73m2 Moderately to severely decreased 30 - 44 mL/min/1.73m2 Severely decreased 15 - 29 mL/min/1.73m2 Kidney Failure < 15 mL/min/1.73m2 *Relative to young adult level Estimated glomerular filtration rate is determined by the 2020 CKD-EPI equation recommended by the National Kidney Foundation (A Unifying Approach to GFR Estimation: Recommendations of the NKF-ASK Task Force on Reassessing the Inclusion of Race in Diagnosing Kidney Disease, JASN 2020). The CKD-EPI equation should not be used for patients with unstable renal function and has not been validated in children and those over 70. Current interpretive data was last reviewed 2021. Blood 09/18/2024 3:27 AM CDT 09/18/2024 4:35 AM CDT Liam Avila MD PhD LAB BLOOD ORDERABLES F inal Result Performing Organization Address [facility] de Phone Number [facility] [place] [place] [address] * (ABNORMAL) Protime-INR (09/18/2024 3:27 AM CDT) PT 24.6(H) 9.7 - 13.0 sec INR 2.24(H) 0.90 - 1.20 [facility] Comment: Interpretive data Oral anticoagulant therapeutic ranges: Venous thromboembolism prophylaxis or treatment: 2.0-3.0 CARDIOLOGY Standard range: 2.0-3.0 High-intensity range: 2.5-3.5 Refer to indication-specific guidelines for appropriate target ranges for prosthetic heart valve replacement. Current interpretive data was last revised on 2019. Blood 09/18/2024 3:27 AM CDT 09/18/2024 4:32 AM CDT Liam Avila MD PhD LAB BLOOD ORDERABLES F inal Result Performing Organization Address [facility] [place] [address] * (ABNORMAL) Basic metabolic panel (09/18/2024 3:27 AM CDT) Sodium 140 135 - 145 mmol/L Potassium, pl 3.9 3.3 - 4.9 mmol/L [facility] Chloride 104 97 - 110 mmol/L [facility] CO2 29 22 - 32 mmol/L [facility] Anion gap 7 2 - 15 mmol/L [facility] BUN 16 6 - 25 mg/dL [facility] Creatinine 0.66(L) 0.80 - 1.30 mg/dL [facility] Glucose 160 70 - 199 mg/dL [facility] Comment: Interpretive Data Fasting glucose >/= 126 mg/dl is diagnostic for diabetes. Fasting is defined as no caloric intake for at least 8 hours. Fasting glucose between 100 mg/dl to 125 mg/dl is diagnostic of prediabetes. In a patient with classic symptoms of hyperglycemia or hyperglycemic crisis, a random glucose >/= 200 mg/dl is diagnostic for diabetes. In the absence of unequivocal hyperglycemia, results should be confirmed by repeat testing. The classification and Diagnosis of Diabetes Diabetes Care 2021; 46: S19-S40. Current interpretive data was last revised 2022. Calcium 9.1 8.5 - 10.3 mg/dL [facility] Blood 09/18/2024 3:27 AM CDT 09/18/2024 4:35 AM CDT Liam Avila MD PhD LAB BLOOD ORDERABLES F inal Result Performing Organization Address [facility] Co de Phone Number [facility] [place] [address] * (ABNORMAL) POCT glucose (09/17/2024 7:50 PM CDT) Glucose, POC 268(H) 70 - 199 mg/dL Comment:Glu2: RN/MD Notified Glucose comment 1 Glu2: RN/MD Notified [facility] Blood 09/17/2024 7:50 PM CDT 09/17/2024 7:50 PM CDT Liam Avila MD PhD LAB POCT ORDERABLES - DEVICE Final Result Performing Organization Address [facility] Co de Phone Number [facility] [place] [address] * (ABNORMAL) POCT glucose (09/17/2024 4:44 PM CDT) Glucose, POC 248(H) 70 - 199 mg/dL Blood 09/17/2024 4:44 PM CDT 09/17/2024 4:44 PM CDT Liam Avila MD PhD LAB POCT ORDERABLES - DEVICE Final Result Performing Organization Address [facility] Co de Phone Number [facility] [place] [address] * (ABNORMAL) POCT glucose (09/17/2024 11:18 AM CDT) Glucose, POC 264(H) 70 - 199 mg/dL Blood 09/17/2024 11:1 8 AM CDT 09/17/2024 11:18 AM CDT Liam Avila MD PhD LAB POCT ORDERABLES - DEVICE Final Result Performing Organization Address [facility] Co de Phone Number [facility] [place] [address] * POCT glucose (09/17/2024 7:21 AM CDT) Glucose, POC 158 70 - 199 mg/dL Blood 09/17/2024 7:21 AM CDT 09/17/2024 7:21 AM CDT Result [facility] Liam Avila MD PhD LAB POCT ORDERABLES - DEVICE Final Result Performing Organization Address [facility] Co de Phone Number [facility] [place] [address] * eGFR (09/17/2024 3:54 AM CDT) eGFR >90 >=60 mL/min/1. 73 m2 Comment: Interpretive Data Reference Interval Normal >/= 90 mL/min/1.73m2 Mildly decreased* 60 - 89 mL/min/1.73m2 Mildly to moderately decreased 45 - 59 mL/min/1.73m2 Moderately to severely decreased 30 - 44 mL/min/1.73m2 Severely decreased 15 - 29 mL/min/1.73m2 Kidney Failure < 15 mL/min/1.73m2 *Relative to young adult level Estimated glomerular filtration rate is determined by the 2020 CKD-EPI equation recommended by the National Kidney Foundation (A Unifying Approach to GFR Estimation: Recommendations of the NKF-ASK Task Force on Reassessing the Inclusion of Race in Diagnosing Kidney Disease, JASN 202). The CKD-EPI equation should not be used for patients with unstable renal function and has not been validated in children and those over 70. Current interpretive data was last reviewed 2021. Blood 09/17/2024 3:54 AM CDT 09/17/2024 5:45 AM CDT Result [facility] Liam Avila MD PhD LAB BLOOD ORDERABLES F inal Result Performing Organization Address [facility] de Phone Number [facility] [place] [address] * (ABNORMAL) Protime-INR (09/17/2024 3:54 AM CDT) PT 22.1(H) 9.7 - 13.0 sec INR 2.02(H) 0.90 - 1.20 [facility] Comment: Interpretive data Oral anticoagulant therapeutic ranges: Venous thromboembolism prophylaxis or treatment: 2.0-3.0 CARDIOLOGY Standard range: 2.0-3.0 High-intensity range: 2.5-3.5 Refer to indication-specific guidelines for appropriate target ranges for prosthetic heart valve replacement. Current interpretive data was last revised on 2019. Blood 09/17/2024 3:54 AM CDT 09/17/2024 5:40 AM CDT Liam Avila MD PhD LAB BLOOD ORDERABLES F inal Result Performing Organization Address [facility] de Phone Number [facility] [place] [address] * (ABNORMAL) Basic metabolic panel (09/17/2024 3:54 AM CDT) Sodium 137 135 - 145 mmol/L Potassium, pl 4.3 3.3 - 4.9 mmol/L [facility] Chloride 100 97 - 110 mmol/L [facility] CO2 28 22 - 32 mmol/L [facility] Anion gap 9 2 - 15 mmol/L [facility] BUN 14 6 - 25 mg/dL [facility] Creatinine 0.63(L) 0.80 - 1.30 mg/dL [facility] Glucose 174 70 - 199 mg/dL [facility] Comment: Interpretive Data Fasting glucose >/= 126 mg/dl is diagnostic for diabetes. Fasting is defined as no caloric intake for at least 8 hours. Fasting glucose between 100 mg/dl to 125 mg/dl is diagnostic of prediabetes. In a patient with classic symptoms of hyperglycemia or hyperglycemic crisis, a random glucose >/= 200 mg/dl is diagnostic for diabetes. In the absence of unequivocal hyperglycemia, results should be confirmed by repeat testing. The classification and Diagnosis of Diabetes Diabetes Care 2021; 46: S19-S40. Current interpretive data was last revised 2022. Calcium 9.6 8.5 - 10.3 mg/dL [facility] Blood 09/17/2024 3:54 AM CDT 09/17/2024 5:45 AM CDT us Liam Avila MD PhD LAB BLOOD ORDERABLES F inal Result [facility] [place] [address] * POCT glucose (09/16/2024 8:13 PM CDT) Glucose, POC 192 70 - 199 mg/dL Blood 09/16/2024 8:13 PM CDT 09/16/2024 8:13 PM CDT Liam Avila MD PhD LAB POCT ORDERABLES - DEVICE Final Result [facility] [place] [address] * (ABNORMAL) POCT glucose (09/16/2024 4:33 PM CDT) Glucose, POC 252(H) 70 - 199 mg/dL Comment:Glu2: RN/MD Notified Glucose comment 1 Glu2: RN/MD Notified [facility] Blood 09/16/2024 4:33 PM CDT 09/16/2024 4:33 PM CDT us Liam Avila MD PhD LAB POCT ORDERABLES - DEVICE Final Result Performing Organization Address [facility] Co de Phone Number [facility] [place] [address] * (ABNORMAL) POCT glucose (09/16/2024 11:22 AM CDT) Glucose, POC 258(H) 70 - 199 mg/dL Comment:Glu2: RN/MD Notified Glucose comment 1 Glu2: RN/MD Notified [facility] Blood 09/16/2024 11:2 2 AM CDT 09/16/2024 11:22 AM CDT us Liam Avila MD PhD LAB POCT ORDERABLES - DEVICE Final Result Performing Organization Address [facility] Co de Phone Number [facility] [place] [address] * POCT glucose (09/16/2024 7:43 AM CDT) Glucose, POC 147 70 - 199 mg/dL Blood 09/16/2024 7:43 AM CDT 09/16/2024 7:43 AM CDT us Liam Avila MD PhD LAB POCT ORDERABLES - DEVICE Final Result Performing Organization Address [facility] Co de Phone Number [facility] [place] [address] * eGFR (09/16/2024 4:34 AM CDT) eGFR >90 >=60 mL/min/1. 73 m2 Comment: Interpretive Data Reference Interval Normal >/= 90 mL/min/1.73m2 Mildly decreased* 60 - 89 mL/min/1.73m2 Mildly to moderately decreased 45 - 59 mL/min/1.73m2 Moderately to severely decreased 30 - 44 mL/min/1.73m2 Severely decreased 15 - 29 mL/min/1.73m2 Kidney Failure < 15 mL/min/1.73m2 *Relative to young adult level Estimated glomerular filtration rate is determined by the 2020 CKD-EPI equation recommended by the National Kidney Foundation (A Unifying Approach to GFR Estimation: Recommendations of the NKF-ASK Task Force on Reassessing the Inclusion of Race in Diagnosing Kidney Disease, JASN 2020). The CKD-EPI equation should not be used for patients with unstable renal function and has not been validated in children and those over 70. Current interpretive data was last reviewed 2021. Blood 09/16/2024 4:34 AM CDT 09/16/2024 6:28 AM CDT Liam Avila MD PhD LAB BLOOD ORDERABLES F inal Result Performing Organization Address [facility] Co de Phone Number [facility] [place] [address] * (ABNORMAL) aPTT (09/16/2024 4:34 AM CDT) aPTT 87(H) 28 - 38 sec Comment: Interpretive Data Heparin therapeutic range: 66.0 - 100.0 seconds. Range based on correlation with therapeutic heparin activity range of 0.3 - 0.7 Units/mL. Current interpretive data was last revised on 2023. Blood 09/16/2024 4:34 AM CDT 09/16/2024 6:06 AM CDT Narrative [facility] - 09/16/2024 6:43 AM CDT STAT PTT timing: - Draw 6 hours after heparin infusion initiation - Draw 6 hours after every dose change until 2 consecutive PTTs are therapeutic - Once 2 consecutive PTTs are therapeutic, obtain with daily labs until infusion is discontinued - - Restart every 6 hour lab draws and follow instructions accordingly if PTT is outside of therapeutic range Do not draw lab from IV line that is actively infusing heparin. Use the opposite arm. If arm with actively infusing heparin must be used, pause the infusion for at least 2 minutes, and draw specimen below the IV site. For patients with a central venous catheter (CVC), lab must be drawn peripherally (not from CVC). Margarette Lai [employer] LAB BLOOD ORDERABLES Final Result Performing Organization Address [facility] Co de Phone Number [facility] [place] [address] * (ABNORMAL) Protime-INR (09/16/2024 4:34 AM CDT) [facility] PT 19.8(H) 9.7 - 13.0 sec INR 1.81(H) 0.90 - 1.20 [facility] Comment: Interpretive data Oral anticoagulant therapeutic ranges: Venous thromboembolism prophylaxis or treatment: 2.0-3.0 CARDIOLOGY Standard range: 2.0-3.0 High-intensity range: 2.5-3.5 Refer to indication-specific guidelines for appropriate target ranges for prosthetic heart valve replacement. Current interpretive data was last revised on 2019. Blood 09/16/2024 4:34 AM CDT 09/16/2024 6:06 AM CDT Liam Avila MD PhD LAB BLOOD ORDERABLES F inal Result Performing Organization Address [facility] Co de Phone Number [facility] [place] [address] * (ABNORMAL) CBC without differential (09/16/2024 4:34 AM CDT) WBC 3.84 3.80 - 9.90 K/cumm Hgb 11.8(L) 13.0 - 17.5 g/dL [facility] Hct 35.8(L) 38.9 - 50.3 % [facility] Plt 252 150 - 400 K/cumm [facility] MPV 10.9 9.1 - 12.3 fL [facility] RBC 4.16(L) 4.30 - 5.80 M/cumm [facility] MCV 86.1 81.3 - 96.4 fL [facility] MCH 28.4 27.1 - 33.3 pg [facility] MCHC 33.0 32.3 - 35.7 g/dL [facility] RDW CV 16.5(H) 11.1 - 14.9 % [facility] RDW SD 51.8(H) 35.7 - 48.1 fL [facility] NRBC abs 0.00 0.00 - 0.01 K/cumm [facility] Blood 09/16/2024 4:34 AM CDT 09/16/2024 6:06 AM CDT us Margarette Lai [employer] LAB BLOOD ORDERABLES Final Result [facility] [place] [address] * Magnesium (09/16/2024 4:34 AM CDT) Pathologist [facility] Magnesium 1.9 1.4 - 2.5 mg/dL Blood 09/16/2024 4:34 AM CDT 09/16/2024 6:06 AM CDT Liam Avila MD PhD LAB BLOOD ORDERABLES F inal Result [facility] [place] [address] * Vancomycin level trough Draw trough 30 minutes prior (09/16/2024 4:34 AM CDT) [facility] Vancomycin trough 19.5 10.0 - 20.0 mcg/mL Blood 09/16/2024 4:34 AM CDT 09/16/2024 5:42 AM CDT Narrative [facility] - 09/16/2024 6:10 AM CDT Draw trough 30 minutes prior Margarette Lai NP LAB BLOOD ORDERABLES Final Result [facility] [place] [address] * (ABNORMAL) Basic metabolic panel (09/16/2024 4:34 AM CDT) [facility] Sodium 137 135 - 145 mmol/L Potassium, pl 3.8 3.3 - 4.9 mmol/L [facility] Chloride 101 97 - 110 mmol/L [facility] CO2 28 22 - 32 mmol/L [facility] Anion gap 8 2 - 15 mmol/L [facility] BUN 14 6 - 25 mg/dL [facility] Creatinine 0.71(L) 0.80 - 1.30 mg/dL [facility] Glucose 149 70 - 199 mg/dL [facility] Comment: Interpretive Data Fasting glucose >/= 126 mg/dl is diagnostic for diabetes. Fasting is defined as no caloric intake for at least 8 hours. Fasting glucose between 100 mg/dl to 125 mg/dl is diagnostic of prediabetes. In a patient with classic symptoms of hyperglycemia or hyperglycemic crisis, a random glucose >/= 200 mg/dl is diagnostic for diabetes. In the absence of unequivocal hyperglycemia, results should be confirmed by repeat testing. The classification and Diagnosis of Diabetes Diabetes Care 2021; 46: S19-S40. Current interpretive data was last revised 2022. Calcium 9.2 8.5 - 10.3 mg/dL [facility] Blood 09/16/2024 4:34 AM CDT 09/16/2024 6:06 AM CDT Liam Avila MD PhD LAB BLOOD ORDERABLES F inal Result [facility] [place] [address] * (ABNORMAL) aPTT (09/15/2024 10:29 PM CDT) aPTT 90(H) 28 - 38 sec Comment: Interpretive Data Heparin therapeutic range: 66.0 - 100.0 seconds. Range based on correlation with therapeutic heparin activity range of 0.3 - 0.7 Units/mL. Current interpretive data was last revised on 2023. Blood 09/15/2024 10:2 9 PM CDT 09/16/2024 3:09 AM CDT Narrative [facility] - 09/16/2024 3:10 AM CDT STAT PTT timing: - Draw 6 hours after heparin infusion initiation - Draw 6 hours after every dose change until 2 consecutive PTTs are therapeutic - Once 2 consecutive PTTs are therapeutic, obtain with daily labs until infusion is discontinued - - Restart every 6 hour lab draws and follow instructions accordingly if PTT is outside of therapeutic range Do not draw lab from IV line that is actively infusing heparin. Use the opposite arm. If arm with actively infusing heparin must be used, pause the infusion for at least 2 minutes, and draw specimen below the IV site. For patients with a central venous catheter (CVC), lab must be drawn peripherally (not from CVC). us Margarette Lai [employer] LAB BLOOD ORDERABLES Final Result [facility] [place] [address] * POCT glucose (09/15/2024 8:13 PM CDT) Glucose, POC 176 70 - 199 mg/dL Blood 09/15/2024 8:13 PM CDT 09/15/2024 8:13 PM CDT Liam Avila MD PhD LAB POCT ORDERABLES - DEVICE Final Result [facility] [place] [address] * POCT glucose (09/15/2024 4:35 PM CDT) Glucose, POC 145 70 - 199 mg/dL Blood 09/15/2024 4:35 PM CDT 09/15/2024 4:35 PM CDT Liam Avila MD PhD LAB POCT ORDERABLES - DEVICE Final Result Performing Organization Address [facility] Co de Phone Number [facility] [place] [address] * (ABNORMAL) aPTT (09/15/2024 2:52 PM CDT) aPTT 61(H) 28 - 38 sec Comment: Interpretive Data Heparin therapeutic range: 66.0 - 100.0 seconds. Range based on correlation with therapeutic heparin activity range of 0.3 - 0.7 Units/mL. Current interpretive data was last revised on 2023. Blood 09/15/2024 2:52 PM CDT 09/15/2024 3:26 PM CDT Narrative [facility] - 09/15/2024 3:50 PM CDT STAT PTT timing: - Draw 6 hours after heparin infusion initiation - Draw 6 hours after every dose change until 2 consecutive PTTs are therapeutic - Once 2 consecutive PTTs are therapeutic, obtain with daily labs until infusion is discontinued - - Restart every 6 hour lab draws and follow instructions accordingly if PTT is outside of therapeutic range Do not draw lab from IV line that is actively infusing heparin. Use the opposite arm. If arm with actively infusing heparin must be used, pause the infusion for at least 2 minutes, and draw specimen below the IV site. For patients with a central venous catheter (CVC), lab must be drawn peripherally (not from CVC). Margarette Lai [employer] LAB BLOOD ORDERABLES Final Result Performing Organization Address [facility] Co de Phone Number [facility] [place] [address] * POCT glucose (09/15/2024 11:12 AM CDT) Glucose, POC 191 70 - 199 mg/dL Blood 09/15/2024 11:1 2 AM CDT 09/15/2024 11:12 AM CDT Liam Avila MD PhD LAB POCT ORDERABLES - DEVICE Final Result Performing Organization Address [facility] de Phone Number [facility] [place] [address] * POCT glucose (09/15/2024 7:27 AM CDT) Glucose, POC 137 70 - 199 mg/dL Blood 09/15/2024 7:27 AM CDT 09/15/2024 7:27 AM CDT Liam Avila MD PhD LAB POCT ORDERABLES - DEVICE Final Result Performing Organization Address [facility] de Phone Number [facility] [place] [address] * eGFR (09/15/2024 4:04 AM CDT) eGFR >90 >=60 mL/min/1. 73 m2 Comment: Interpretive Data Reference Interval Normal >/= 90 mL/min/1.73m2 Mildly decreased* 60 - 89 mL/min/1.73m2 Mildly to moderately decreased 45 - 59 mL/min/1.73m2 Moderately to severely decreased 30 - 44 mL/min/1.73m2 Severely decreased 15 - 29 mL/min/1.73m2 Kidney Failure < 15 mL/min/1.73m2 *Relative to young adult level Estimated glomerular filtration rate is determined by the 2020 CKD-EPI equation recommended by the National Kidney Foundation (A Unifying Approach to GFR Estimation: Recommendations of the NKF-ASK Task Force on Reassessing the Inclusion of Race in Diagnosing Kidney Disease, JASN 2020). The CKD-EPI equation should not be used for patients with unstable renal function and has not been validated in children and those over 70. Current interpretive data was last reviewed 2021. Blood 09/15/2024 4:04 AM CDT 09/15/2024 4:58 AM CDT Liam Avila MD PhD LAB BLOOD ORDERABLES F inal Result Performing Organization Address City/[facility]/ZIP Co de Phone Number [facility] [place] [address] * (ABNORMAL) aPTT (09/15/2024 4:04 AM CDT) aPTT 137(H) 28 - 38 sec Comment: Interpretive Data Heparin therapeutic range: 66.0 - 100.0 seconds. Range based on correlation with therapeutic heparin activity range of 0.3 - 0.7 Units/mL. Current interpretive data was last revised on 2023. Blood 09/15/2024 4:04 AM CDT 09/15/2024 4:53 AM CDT Ariela Goldman MD LAB BLOOD ORDERABLES Final Result Performing Organization Address City/[facility]/ZIP Co de Phone Number [facility] [place] [address] * (ABNORMAL) Protime-INR (09/15/2024 4:04 AM CDT) PT 18.4(H) 9.7 - 13.0 sec INR 1.69(H) 0.90 - 1.20 [facility] Comment: Interpretive data Oral anticoagulant therapeutic ranges: Venous thromboembolism prophylaxis or treatment: 2.0-3.0 CARDIOLOGY Standard range: 2.0-3.0 High-intensity range: 2.5-3.5 Refer to indication-specific guidelines for appropriate target ranges for prosthetic heart valve replacement. Current interpretive data was last revised on 2019. Blood 09/15/2024 4:04 AM CDT 09/15/2024 4:53 AM CDT Liam Avila MD PhD LAB BLOOD ORDERABLES F inal Result [facility] [place] [address] * (ABNORMAL) Hepatic function panel (09/15/2024 4:04 AM CDT) Bilirubin, total 0.3 0.1 - 1.2 mg/dL Bilirubin, direct <0.2 0.1 - 0.3 mg/dL [facility] Protein, pl 6.5 6.5 - 8.5 g/dL [facility] Albumin 3.3(L) 3.5 - 5.0 g/dL [facility] Alk phos 102 40 - 130 Units/L [facility] [facility] ALT 12 7 - 55 Units/L [facility] AST 28 10 - 50 Units/L [facility] Blood 09/15/2024 4:04 AM CDT 09/15/2024 4:58 AM CDT Margarette Lai GAS [employer]ER LAB BLOOD ORDERABLES Final Result [facility] [place] [place] [address] * (ABNORMAL) Basic metabolic panel (09/15/2024 4:04 AM CDT) Sodium 140 135 - 145 mmol/L Potassium, pl 3.6 3.3 - 4.9 mmol/L [facility] Chloride 103 97 - 110 mmol/L [facility] CO2 27 22 - 32 mmol/L [facility] Anion gap 10 2 - 15 mmol/L [facility] BUN 14 6 - 25 mg/dL [facility] Creatinine 0.66(L) 0.80 - 1.30 mg/dL [facility] Glucose 109 70 - 199 mg/dL [facility] Comment: Interpretive Data Fasting glucose >/= 126 mg/dl is diagnostic for diabetes. Fasting is defined as no caloric intake for at least 8 hours. Fasting glucose between 100 mg/dl to 125 mg/dl is diagnostic of prediabetes. In a patient with classic symptoms of hyperglycemia or hyperglycemic crisis, a random glucose >/= 200 mg/dl is diagnostic for diabetes. In the absence of unequivocal hyperglycemia, results should be confirmed by repeat testing. The classification and Diagnosis of Diabetes Diabetes Care 2021; 46: S19-S40. Current interpretive data was last revised 2022. Calcium 9.1 8.5 - 10.3 mg/dL [facility] Blood 09/15/2024 4:04 AM CDT 09/15/2024 4:58 AM CDT Liam Avila MD PhD LAB BLOOD ORDERABLES F inal Result [facility] [place] [address] * POCT glucose (09/14/2024 7:53 PM CDT) [facility] Glucose, POC 198 70 - 199 mg/dL Blood 09/14/2024 7:53 PM CDT 09/14/2024 7:53 PM CDT Liam Avila MD PhD LAB POCT ORDERABLES - DEVICE Final Result Performing Organization Address City/[facility]/ZIP Co de Phone Number [facility] [place] [address] * POCT glucose (09/14/2024 4:42 PM CDT) Glucose, POC 132 70 - 199 mg/dL Blood 09/14/2024 4:42 PM CDT 09/14/2024 4:42 PM CDT us Liam Avila MD PhD LAB POCT ORDERABLES - DEVICE Final Result [facility] [place] [address] * CT Chest Abdomen Pelvis W Contrast (09/14/2024 1:24 PM CDT) Anatomical Region Laterality Modality Body N/A Computed Tomogra phy 09/14/2024 1:51 PM CDT Impressions 09/14/2024 1:51 PM CDT 1. Persistent subcutaneous stranding and cutaneous irregularity about the LVAD drive line insertion site, unchanged from 08/02/2024 2. Otherwise stable positioning of left ventricular assist device without adjacent fluid collection. Electronically signed by: Juancarlos Gonzalez M.D. Narrative 09/14/2024 1:51 PM CDT EXAMINATION: Computed tomography of the chest, abdomen and pelvis with intravenous contrast HISTORY: Suspected line infection TECHNIQUE: Transaxial computed tomographic images of the chest, abdomen and pelvis were obtained with intravenous contrast according to the standard protocol after the uneventful administration of 69 mL Opti-Ray 350 intravenous contrast. COMPARISON: CT abdomen pelvis 08/02/2024 FINDINGS: CHEST: Trace dependent mucoid debris within the left mainstem bronchus. The central airways are otherwise clear. Lungs are clear with no focal consolidation. Mild dependent bibasilar atelectasis. No suspicious pulmonary nodule. Right upper lobe benign perifissural nodule (series 3, image 56). There is no pleural effusion or pneumothorax. Left ventricular assist device is unchanged. No fluid collection or localized soft tissue stranding involving the device or associated lines. Persistent subcutaneous inflammation and cutaneous irregularity are present about the joint line (series 2, image 200) Heart size is normal with no pericardial effusion. Multivessel coronary artery calcifications. The thoracic aorta is normal in appearance with a three-vessel arch. There is no central pulmonary embolism. There is no supraclavicular, axillary, hilar, or mediastinal lymphadenopathy. The thyroid gland is normal. Layering debris is present within the distal esophagus. 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 Mild gynecomastia. ABDOMEN/PELVIS: Liver is normal in size and contour. No suspicious hepatic lesion. Cholelithiasis is noted without evidence of cholecystitis. There is no intrahepatic or extrahepatic biliary duct dilation. Mild diffuse pancreatic atrophy. Spleen is normal. Adrenal glands are normal. Stomach and duodenum are normal. No small bowel wall thickening or evidence of obstruction. Colon is normal in appearance. Appendix is normal. There is no mesenteric or retroperitoneal lymphadenopathy. Extensive atherosclerotic disease present throughout the abdominal aorta and its branches. 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 Right and left renal artery stents at their origins. Portal vein, superior mesenteric vein, and splenic vein are patent. There is no intra-abdominal free air or free fluid. 5 mm nonobstructive right renal calculus versus focal atherosclerotic disease. Scattered simple cysts. No hydronephrosis. Urinary bladder is normal. Prostate is normal. No iliac, inguinal, or pelvic lymphadenopathy. MUSCULOSKELETAL: No acute osseus abnormality. No suspicious lytic or blastic osseous lesion. Multilevel spine degenerative changes. Left ventral abdominal subcutaneous stranding, likely posttraumatic. Asymmetric atrophy of the right gluteal musculature. Procedure Note Juancarlos Gonzalez II, MD - 09/14/2024 EXAMINATION: Computed tomography of the chest, abdomen and pelvis with intravenous contrast HISTORY: Suspected line infection TECHNIQUE: Transaxial computed tomographic images of the chest, abdomen and pelvis were obtained with intravenous contrast according to the standard protocol after the uneventful administration of 69 mL Opti-Ray 350 intravenous contrast. COMPARISON: CT abdomen pelvis 08/02/2024 FINDINGS: CHEST: Trace dependent mucoid debris within the left mainstem bronchus. The central airways are otherwise clear. Lungs are clear with no focal consolidation. Mild dependent bibasilar atelectasis. No suspicious pulmonary nodule. Right upper lobe benign perifissural nodule (series 3, image 56). There is no pleural effusion or pneumothorax. Left ventricular assist device is unchanged. No fluid collection or localized soft tissue stranding involving the device or associated lines. Persistent subcutaneous inflammation and cutaneous irregularity are present about the joint line (series 2, image 200) Heart size is normal with no pericardial effusion. Multivessel coronary artery calcifications. The thoracic aorta is normal in appearance with a three-vessel arch. There is no central pulmonary embolism. There is no supraclavicular, axillary, hilar, or mediastinal lymphadenopathy. The thyroid gland is normal. Layering debris is present within the distal esophagus. 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 Mild gynecomastia. ABDOMEN/PELVIS: Liver is normal in size and contour. No suspicious hepatic lesion. Cholelithiasis is noted without evidence of cholecystitis. There is no intrahepatic or extrahepatic biliary duct dilation. Mild diffuse pancreatic atrophy. Spleen is normal. Adrenal glands are normal. Stomach and duodenum are normal. No small bowel wall thickening or evidence of obstruction. Colon is normal in appearance. Appendix is normal. There is no mesenteric or retroperitoneal lymphadenopathy. Extensive atherosclerotic disease present throughout the abdominal aorta and its branches. 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 Right and left renal artery stents at their origins. Portal vein, superior mesenteric vein, and splenic vein are patent. There is no intra-abdominal free air or free fluid. 5 mm nonobstructive right renal calculus versus focal atherosclerotic disease. Scattered simple cysts. No hydronephrosis. Urinary bladder is normal. Prostate is normal. No iliac, inguinal, or pelvic lymphadenopathy. MUSCULOSKELETAL: No acute osseus abnormality. No suspicious lytic or blastic osseous lesion. Multilevel spine degenerative changes. Left ventral abdominal subcutaneous stranding, likely posttraumatic. Asymmetric atrophy of the right gluteal musculature. IMPRESSION: 1. Persistent subcutaneous stranding and cutaneous irregularity about the LVAD drive line insertion site, unchanged from 08/02/2024 2. Otherwise stable positioning of left ventricular assist device without adjacent fluid collection. Electronically signed by: Juancarlos Gonzalez M.D. Angelina Vo NP IMG CT PROCEDURES Final Res ult * POCT glucose (09/14/2024 11:51 AM CDT) Glucose, POC 151 70 - 199 mg/dL Blood 09/14/2024 11:5 1 AM CDT 09/14/2024 11:51 AM CDT us Liam Avila MD PhD LAB POCT ORDERABLES - DEVICE Final Result [facility] [place] [address] * POCT glucose (09/14/2024 7:52 AM CDT) Glucose, POC 114 70 - 199 mg/dL Blood 09/14/2024 7:52 AM CDT 09/14/2024 7:52 AM CDT us Liam Avila MD PhD LAB POCT ORDERABLES - DEVICE Final Result Performing Organization Address [facility] de Phone Number [facility] [place] [address] * eGFR (09/14/2024 5:00 AM CDT) eGFR >90 >=60 mL/min/1. 73 m2 Comment: Interpretive Data Reference Interval Normal >/= 90 mL/min/1.73m2 Mildly decreased* 60 - 89 mL/min/1.73m2 Mildly to moderately decreased 45 - 59 mL/min/1.73m2 Moderately to severely decreased 30 - 44 mL/min/1.73m2 Severely decreased 15 - 29 mL/min/1.73m2 Kidney Failure < 15 mL/min/1.73m2 *Relative to young adult level Estimated glomerular filtration rate is determined by the 2020 CKD-EPI equation recommended by the National Kidney Foundation (A Unifying Approach to GFR Estimation: Recommendations of the NKF-ASK Task Force on Reassessing the Inclusion of Race in Diagnosing Kidney Disease, JASN 2020). The CKD-EPI equation should not be used for patients with unstable renal function and has not been validated in children and those over 70. Current interpretive data was last reviewed 2021. Blood 09/14/2024 5:00 AM CDT 09/14/2024 5:49 AM CDT Result [facility] Liam Avila MD PhD LAB BLOOD ORDERABLES F inal Result Performing Organization Address [facility] de Phone Number [facility] [place] [address] * (ABNORMAL) aPTT (09/14/2024 5:00 AM CDT) aPTT 98(H) 28 - 38 sec Comment: Interpretive Data Heparin therapeutic range: 66.0 - 100.0 seconds. Range based on correlation with therapeutic heparin activity range of 0.3 - 0.7 Units/mL. Current interpretive data was last revised on 2023. Blood 09/14/2024 5:00 AM CDT 09/14/2024 5:48 AM CDT Result [facility] Ariela Goldman MD LAB BLOOD ORDERABLES Final Result Performing Organization Address [facility] Phone Number [facility] [place] [address] * (ABNORMAL) Protime-INR (09/14/2024 5:00 AM CDT) PT 16.6(H) 9.7 - 13.0 sec INR 1.52(H) 0.90 - 1.20 [facility] Comment: Interpretive data Oral anticoagulant therapeutic ranges: Venous thromboembolism prophylaxis or treatment: 2.0-3.0 CARDIOLOGY Standard range: 2.0-3.0 High-intensity range: 2.5-3.5 Refer to indication-specific guidelines for appropriate target ranges for prosthetic heart valve replacement. Current interpretive data was last revised on 2019. Blood 09/14/2024 5:00 AM CDT 09/14/2024 5:49 AM CDT Result [facility] Liam Avila MD PhD LAB BLOOD ORDERABLES F inal Result Performing Organization Address [facility]/ZIP Co de Phone Number [facility] [place] [address] * (ABNORMAL) CBC without differential (09/14/2024 5:00 AM CDT) Pathologist [facility] [place] WBC 4.56 3.80 - 9.90 K/cumm Hgb 12.1(L) 13.0 - 17.5 g/dL [facility] Hct 36.5(L) 38.9 - 50.3 % [facility] Plt 224 150 - 400 K/cumm [facility] MPV 10.3 9.1 - 12.3 fL [facility] RBC 4.31 4.30 - 5.80 M/cumm [facility] MCV 84.7 81.3 - 96.4 fL [facility] MCH 28.1 27.1 - 33.3 pg [facility] MCHC 33.2 32.3 - 35.7 g/dL [facility] RDW CV 16.7(H) 11.1 - 14.9 % [facility] RDW SD 51.4(H) 35.7 - 48.1 fL [facility] NRBC abs 0.00 0.00 - 0.01 K/cumm [facility] Blood 09/14/2024 5:00 AM CDT 09/14/2024 6:06 AM CDT us Margarette Lai G[employer] LAB BLOOD ORDERABLES Final Result Performing Organization Address [facility]/ZIP Co de Phone Number [facility] [place] [address] * Magnesium (09/14/2024 5:00 AM CDT) [facility] Magnesium 1.9 1.4 - 2.5 mg/dL Blood 09/14/2024 5:00 AM CDT 09/14/2024 5:49 AM CDT us Liam Avila MD PhD LAB BLOOD ORDERABLES F inal Result [facility] [place] [address] * Vancomycin level trough (09/14/2024 5:00 AM CDT) [facility] Vancomycin trough 10.7 10.0 - 20.0 mcg/mL Blood 09/14/2024 5:00 AM CDT 09/14/2024 5:48 AM CDT Margarette Lai GAS [employer]ER LAB BLOOD ORDERABLES Final Result Performing Organization Address [facility] Co de Phone Number [facility] [place] [address] * (ABNORMAL) Basic metabolic panel (09/14/2024 5:00 AM CDT) [facility] Sodium 137 135 - 145 mmol/L Potassium, pl 4.1 3.3 - 4.9 mmol/L [facility] Chloride 103 97 - 110 mmol/L [facility] CO2 25 22 - 32 mmol/L [facility] Anion gap 9 2 - 15 mmol/L [facility] BUN 13 6 - 25 mg/dL [facility] Creatinine 0.71(L) 0.80 - 1.30 mg/dL [facility] Glucose 111 70 - 199 mg/dL [facility] Comment: Interpretive Data Fasting glucose >/= 126 mg/dl is diagnostic for diabetes. Fasting is defined as no caloric intake for at least 8 hours. Fasting glucose between 100 mg/dl to 125 mg/dl is diagnostic of prediabetes. In a patient with classic symptoms of hyperglycemia or hyperglycemic crisis, a random glucose >/= 200 mg/dl is diagnostic for diabetes. In the absence of unequivocal hyperglycemia, results should be confirmed by repeat testing. The classification and Diagnosis of Diabetes Diabetes Care 2021; 46: S19-S40. Current interpretive data was last revised 2022. Calcium 9.0 8.5 - 10.3 mg/dL [facility] Blood 09/14/2024 5:00 AM CDT 09/14/2024 5:49 AM CDT Liam Avila MD PhD LAB BLOOD ORDERABLES F inal Result [facility] [place] [address] * (ABNORMAL) aPTT (09/13/2024 11:21 PM CDT) aPTT 76(H) 28 - 38 sec Comment: Interpretive Data Heparin therapeutic range: 66.0 - 100.0 seconds. Range based on correlation with therapeutic heparin activity range of 0.3 - 0.7 Units/mL. Current interpretive data was last revised on 2023. Blood 09/13/2024 11:2 1 PM CDT 09/14/2024 12:06 AM CDT [facility]ative [facility] - 09/14/2024 12:15 AM CDT STAT PTT timing: - Draw 6 hours after heparin infusion initiation - Draw 6 hours after every dose change until 2 consecutive PTTs are therapeutic - Once 2 consecutive PTTs are therapeutic, obtain with daily labs until infusion is discontinued - - Restart every 6 hour lab draws and follow instructions accordingly if PTT is outside of therapeutic range Do not draw lab from IV line that is actively infusing heparin. Use the opposite arm. If arm with actively infusing heparin must be used, pause the infusion for at least 2 minutes, and draw specimen below the IV site. For patients with a central venous catheter (CVC), lab must be drawn peripherally (not from CVC). us Margarette Lai GAS [employer]ER LAB BLOOD ORDERABLES Final Result [facility] [place] [address] * POCT glucose (09/13/2024 7:35 PM CDT) [facility] Glucose, POC 147 70 - 199 mg/dL Blood 09/13/2024 7:35 PM CDT 09/13/2024 7:35 PM CDT us Liam Avila MD PhD LAB POCT ORDERABLES - DEVICE Final Result Performing Organization Address City/[facility]/ZIP Co de Phone Number [facility] [place] [address] * POCT glucose (09/13/2024 5:00 PM CDT) Glucose, POC 133 70 - 199 mg/dL Blood 09/13/2024 5:00 PM CDT 09/13/2024 5:00 PM CDT us Liam Avila MD PhD LAB POCT ORDERABLES - DEVICE Final Result Performing Organization Address [facility] de Phone Number [facility] [place] [address] * (ABNORMAL) aPTT (09/13/2024 4:11 PM CDT) [facility] aPTT 50(H) 28 - 38 sec Comment: Interpretive Data Heparin therapeutic range: 66.0 - 100.0 seconds. Range based on correlation with therapeutic heparin activity range of 0.3 - 0.7 Units/mL. Current interpretive data was last revised on 2023. Blood 09/13/2024 4:11 PM CDT 09/13/2024 4:33 PM CDT Narrative [facility] - 09/13/2024 4:43 PM CDT STAT PTT timing: - Draw 6 hours after heparin infusion initiation - Draw 6 hours after every dose change until 2 consecutive PTTs are therapeutic - Once 2 consecutive PTTs are therapeutic, obtain with daily labs until infusion is discontinued - - Restart every 6 hour lab draws and follow instructions accordingly if PTT is outside of therapeutic range Do not draw lab from IV line that is actively infusing heparin. Use the opposite arm. If arm with actively infusing heparin must be used, pause the infusion for at least 2 minutes, and draw specimen below the IV site. For patients with a central venous catheter (CVC), lab must be drawn peripherally (not from CVC). Margarette Lai GAS SINGER LAB BLOOD ORDERABLES Final Result Performing Organization Address [facility] Co de Phone Number [facility] [place] [address] * POCT glucose (09/13/2024 11:28 AM CDT) Glucose, POC 157 70 - 199 mg/dL Blood 09/13/2024 11:2 8 AM CDT 09/13/2024 11:28 AM CDT Liam Avila MD PhD LAB POCT ORDERABLES - DEVICE Final Result Performing Organization Address [facility] de Phone Number [facility] [place] [address] * POCT glucose (09/13/2024 8:14 AM CDT) [facility] Glucose, POC 94 70 - 199 mg/dL Blood 09/13/2024 8:14 AM CDT 09/13/2024 8:14 AM CDT Liam Avila MD PhD LAB POCT ORDERABLES - DEVICE Final Result Performing Organization Address [facility] de Phone Number [facility] [place] [address] * eGFR (09/13/2024 4:02 AM CDT) [facility] eGFR >90 >=60 mL/min/1. 73 m2 Comment: Interpretive Data Reference Interval Normal >/= 90 mL/min/1.73m2 Mildly decreased* 60 - 89 mL/min/1.73m2 Mildly to moderately decreased 45 - 59 mL/min/1.73m2 Moderately to severely decreased 30 - 44 mL/min/1.73m2 Severely decreased 15 - 29 mL/min/1.73m2 Kidney Failure < 15 mL/min/1.73m2 *Relative to young adult level Estimated glomerular filtration rate is determined by the 2020 CKD-EPI equation recommended by the National Kidney Foundation (A Unifying Approach to GFR Estimation: Recommendations of the NKF-ASK Task Force on Reassessing the Inclusion of Race in Diagnosing Kidney Disease, JASN 202). The CKD-EPI equation should not be used for patients with unstable renal function and has not been validated in children and those over 70. Current interpretive data was last reviewed 2021. Blood 09/13/2024 4:02 AM CDT 09/13/2024 4:49 AM CDT Liam Avila MD PhD LAB BLOOD ORDERABLES F inal Result Performing Organization Address [facility] de Phone Number [facility] [place] [address] * Protime-INR (09/13/2024 4:02 AM CDT) [facility] PT 12.9 9.7 - 13.0 sec INR 1.19 0.90 - 1.20 [facility] Comment: Interpretive data Oral anticoagulant therapeutic ranges: Venous thromboembolism prophylaxis or treatment: 2.0-3.0 CARDIOLOGY Standard range: 2.0-3.0 High-intensity range: 2.5-3.5 Refer to indication-specific guidelines for appropriate target ranges for prosthetic heart valve replacement. Current interpretive data was last revised on 2019. Blood 09/13/2024 4:02 AM CDT 09/13/2024 4:51 AM CDT Result [facility] Liam Avila MD PhD LAB BLOOD ORDERABLES F inal Result Performing Organization Address [facility] de Phone Number [facility] [place] [address] * (ABNORMAL) CBC without differential (09/13/2024 4:02 AM CDT) [facility] WBC 3.60(L) 3.80 - 9.90 K/cumm Hgb 11.7(L) 13.0 - 17.5 g/dL [facility] Hct 36.0(L) 38.9 - 50.3 % [facility] Plt 210 150 - 400 K/cumm [facility] MPV 10.3 9.1 - 12.3 fL [facility] RBC 4.23(L) 4.30 - 5.80 M/cumm [facility] MCV 85.1 81.3 - 96.4 fL [facility] MCH 27.7 27.1 - 33.3 pg [facility] MCHC 32.5 32.3 - 35.7 g/dL [facility] RDW CV 16.8(H) 11.1 - 14.9 % [facility] RDW SD 52.0(H) 35.7 - 48.1 fL [facility] NRBC abs 0.00 0.00 - 0.01 K/cumm [facility] Blood 09/13/2024 4:02 AM CDT 09/13/2024 4:49 AM CDT Liam Avila MD PhD LAB BLOOD ORDERABLES F inal Result Performing Organization Address [facility] de Phone Number [facility] [place] [address] * Magnesium (09/13/2024 4:02 AM CDT) [facility] Magnesium 2.0 1.4 - 2.5 mg/dL Blood 09/13/2024 4:02 AM CDT 09/13/2024 4:49 AM CDT Liam Avila MD PhD LAB BLOOD ORDERABLES F inal Result Performing Organization Address [facility] Co de Phone Number [facility] [place] [address] * (ABNORMAL) Basic metabolic panel (09/13/2024 4:02 AM CDT) Sodium 141 135 - 145 mmol/L Potassium, pl 3.8 3.3 - 4.9 mmol/L [facility] Chloride 105 97 - 110 mmol/L [facility] CO2 25 22 - 32 mmol/L [facility] Anion gap 11 2 - 15 mmol/L [facility] BUN 10 6 - 25 mg/dL [facility] Creatinine 0.61(L) 0.80 - 1.30 mg/dL [facility] Glucose 96 70 - 199 mg/dL [facility] Comment: Interpretive Data Fasting glucose >/= 126 mg/dl is diagnostic for diabetes. Fasting is defined as no caloric intake for at least 8 hours. Fasting glucose between 100 mg/dl to 125 mg/dl is diagnostic of prediabetes. In a patient with classic symptoms of hyperglycemia or hyperglycemic crisis, a random glucose >/= 200 mg/dl is diagnostic for diabetes. In the absence of unequivocal hyperglycemia, results should be confirmed by repeat testing. The classification and Diagnosis of Diabetes Diabetes Care 2021; 46: S19-S40. Current interpretive data was last revised 2022. Calcium 8.6 8.5 - 10.3 mg/dL [facility] Blood 09/13/2024 4:02 AM CDT 09/13/2024 4:49 AM CDT Liam Avila MD PhD LAB BLOOD ORDERABLES F inal Result [facility] [place] [address] * (ABNORMAL) Urinalysis reflex to microscopic and culture Urine (09/12/2024 9:42 PM CDT) Pathologist [facility] [place] Color, ur Straw Yellow Clarity, ur Clear Clear [facility] Specific gravity, ur 1.020 1.003 - 1.030 [facility] pH, urine 8.0 [facility] Comment: Interpretive Data U rine pH is affected by diet, medications, systemic acid-base disturbances, and renal tubular function. pH may affect urinary stone formation. For example, urine pH below 6.0 may help reduce the tendency for calcium phosphate stones and pH greater than 6.0 may reduce the tendency for uric acid stone formation. Source: [facility] Current Interpretive Data was last revised on 2017 Protein, ur ql 1+(A) Negative [facility] Glucose, ur ql 4+(A) Negative [facility] Ketones, ur Trace Negative [facility] Bilirubin, ur Negative Negative [facility] Blood, ur Negative Negative [facility] Urobilinogen, ur <2.0 <2.0 mg/dL [facility] Nitrite, ur Negative Negative [facility] Leukocyte esterase, ur Negative Negative [facility] UA reflex comment Reflex to microscopic UA will be performed. [facility] Urine 09/12/2024 9:4 2 PM CDT 09/12/2024 10:23 PM CDT Liam Avila MD PhD LAB MICROBIOLOGY - GEN ERAL ORDERABLES Final Result [facility] [place] [address] * (ABNORMAL) Aerobic and anaerobic culture and gram stain Driveline site Abdominal opening (09/12/2024 9:42 PM CDT) Direct Specimen Exam Stain: Rare polymorphonuclear leukocytes seen. No organisms seen. Report Final Report: Few Staphylococcus aureus Methicillin resistant (MRSA) by penicillin binding protein 2a (PBP2a) testing. Few Escherichia coli (.) [facility] Organism ESCHERICHIA COLI [facility] Organism STAPHYLOCOCCUS AUREUS [facility] Driveline site (Abdominal opening) 09/12/2024 9:42 PM CDT 09/12/2024 11:07 PM CDT N[facility]ative [facility] - 09/19/2024 1:28 PM CDT Specimen received on an ESwab. Testing performed by [facility] ([phone]) Specimens submitted from normally sterile body sites will have all bacterial morphotypes identified. Specimens that contain grossly mixed annamaria and/or are from body sites that are not normally sterile will be examined for Staphylococcus aureus, Pseudomonas aeruginosa, beta-hemolytic strep, vancomycin-resistant Enterococcus, Bacteroides, Parabacteroides, Clostridium perfringens and fungus. If any of these are isolated, the organism will be reported. Current interpretive data was last revised on 2019. Organism Antibiotic Method Susceptibility Escherichia coli Ampicillin INTERPRETATION Resistant Escherichia coli Cefazolin INTERPRETATION Susceptible Escherichia coli Gentamicin INTERPRETATION Susceptible Escherichia coli Ampicillin with Sulbactam INTERPRETAT ION Susceptible Escherichia coli Trimethoprim with Sulfamethoxazole INTERPRETATION Resistant Escherichia coli Meropenem INTERPRETATION Susceptible Escherichia coli Cefepime INTERPRETATION Susceptible Escherichia coli Ciprofloxacin INTERPRETATION Susceptible Escherichia coli Ceftazidime INTERPRETATION Susceptible Escherichia coli Ceftriaxone INTERPRETATION Susceptible Escherichia coli Piperacillin/Tazobactam INTERPRETATIO N Susceptible Staphylococcus aureus Daptomycin (ZAYNAB) (ZAYNAB) INTERPRET ATION Susceptible Staphylococcus aureus Ceftaroline (ZAYNAB) INTERPRETATIO N Susceptible Staphylococcus aureus Doxycycline (ZAYNAB) INTERPRETATIO N Susceptible Staphylococcus aureus Linezolid (ZAYNAB) INTERPRETATIO N Susceptible Staphylococcus aureus Trimethoprim with Sulfamethoxazole (ZAYNAB) INTERPRETATION Susceptible Staphylococcus aureus Clindamycin (ZAYNAB) INTERPRETATIO N Resistant Staphylococcus aureus Erythromycin (ZAYNAB) INTERPRETATIO N Resistant Staphylococcus aureus Vancomycin (ZAYNAB) INTERPRETATIO N Susceptible Staphylococcus aureus Oxacillin (ZAYNAB) INTERPRETATIO N Resistant Staphylococcus aureus Cefazolin (ZAYNAB) INTERPRETATIO N Resistant Staphylococcus aureus Ceftriaxone (ZAYNAB) INTERPRETATIO N Resistant Liam Avila MD PhD LAB MICROBIOLOGY - GEN ERAL ORDERABLES Final Result [facility] [place] [address] * Urinalysis, microscopic only (09/12/2024 9:42 PM CDT) WBC, ur 0-5 0 - 5 /HPF RBC, ur 0-2 0 - 2 /HPF [facility] Culture Reflex Comment Reflex conditions for urine culture (WBC >10) not met. [facility] Urine 09/12/2024 9:42 PM CDT 09/12/2024 10:23 PM CDT Liam Avila MD PhD LAB URINE ORDERABLES F inal Result [facility] [place] [address] * POCT glucose (09/12/2024 8:52 PM CDT) Pathologist [facility] [place] Glucose, POC 118 70 - 199 mg/dL Blood 09/12/2024 8:52 PM CDT 09/12/2024 8:52 PM CDT Liam Avila MD PhD LAB POCT ORDERABLES - DEVICE Final Result Performing Organization Address [facility] de Phone Number [facility] [place] [address] * ECG 12 lead (09/12/2024 8:18 PM CDT) [facility] Ventricular Rate EKG/Min 82 BPM [facility] QRS-Interval (MSEC) 126 ms [facility] QT-Interval (MSEC) 400 ms [facility] QTc 467 ms [facility] R [place] 16 degrees [facility] T [place] 82 degrees [facility] Diagnosis Atrial fibrillation Non-specific intra-ventricul ar conduction block Nonspecific T wave abnormality Abnormal ECG Confirmed by Chinedu JARRELL, [facility] ([id number]) on 09/14/2024 12:45:52 PM [facility] 09/12/2024 8:18 PM CDT 09/14/2024 12:45 PM CDT us Margarette Lai G[employer]ER ECG ORDERABLES Final Resu lt Performing Organization Address [facility] Co de Phone Number [facility] * Sepsis Lactate w/ Reflex (09/12/2024 7:46 PM CDT) [facility] Sepsis Lactate 1.2 0.7 - 2.0 mmol/L Blood 09/12/2024 7:46 PM CDT 09/12/2024 7:51 PM CDT us Viky Gomez MD LAB BLOOD ORDERABLES Final Result [facility] [place] [address] * CT Head WO Contrast (09/12/2024 5:44 PM CDT) Anatomical Region Laterality Modality Head and Neck N/A Computed Tomogra phy 09/12/2024 5:55 PM CDT Impressions 09/12/2024 6:22 PM CDT 1. No acute intracranial abnormality. 2. Stable chronic infarcts, severe diffuse cerebral volume loss, and severe confluent white matter chronic small vessel disease as above. Dictated by: Manny Rome M.D. The radiology attending physician has personally reviewed this study, and had reviewed and/or edited this written report and agrees with it. Electronically signed by: Bhupinder Ibrahim MD Narrative 09/12/2024 6:22 PM CDT EXAMINATION: CT head without contrast HISTORY: 83 years-old Male with Mental status change, unknown cause. TECHNIQUE: CT of the head was performed with images acquired from skull base to vertex without intravenous contrast. COMPARISON: CT head without contrast 08/02/2024 FINDINGS: Severe diffuse cerebral and cerebellar volume loss with ventricular sulcal prominence. Severe confluent bilateral white matter hyperintensities compatible with chronic small vessel ischemia. Stable chronic infarcts within the left greater than right cerebellum, left occipital lobe, left lentiform nucleus, and right thalamus. There is no acute intracranial hemorrhage. Ex vacuo ventricular dilatation without acute obstructive hydrocephalus. No mass effect or midline shift is present. The shaffer-white matter differentiation is normal. Bilateral lens replacement. Left-sided glaucoma drainage device. The visualized portions of the mastoids are normal. The visualized portions of the paranasal sinuses are normal. No fractures are identified. Degenerative changes at the craniocervical junction with partially calcified retro-odontoid soft tissue thickening. Vascular calcifications within the right V4 vertebral artery, the basilar artery, bilateral carotid siphons. Left cerumen impaction. Procedure Note Bhupinder Ibrahim MD - 09/12/2024 EXAMINATION: CT head without contrast HISTORY: 83 years-old Male with Mental status change, unknown cause. TECHNIQUE: CT of the head was performed with images acquired from skull base to vertex without intravenous contrast. COMPARISON: CT head without contrast 08/02/2024 FINDINGS: Severe diffuse cerebral and cerebellar volume loss with ventricular sulcal prominence. Severe confluent bilateral white matter hyperintensities compatible with chronic small vessel ischemia. Stable chronic infarcts within the left greater than right cerebellum, left occipital lobe, left lentiform nucleus, and right thalamus. There is no acute intracranial hemorrhage. Ex vacuo ventricular dilatation without acute obstructive hydrocephalus. No mass effect or midline shift is present. The shaffer-white matter differentiation is normal. Bilateral lens replacement. Left-sided glaucoma drainage device. The visualized portions of the mastoids are normal. The visualized portions of the paranasal sinuses are normal. No fractures are identified. Degenerative changes at the craniocervical junction with partially calcified retro-odontoid soft tissue thickening. Vascular calcifications within the right V4 vertebral artery, the basilar artery, bilateral carotid siphons. Left cerumen impaction. IMPRESSION: 1. No acute intracranial abnormality. 2. Stable chronic infarcts, severe diffuse cerebral volume loss, and severe confluent white matter chronic small vessel disease as above. Dictated by: Manny Rome M.D. The radiology attending physician has personally reviewed this study, and had reviewed and/or edited this written report and agrees with it. Electronically signed by: Bhupinder Ibrahim MD us Viky Gomez MD IMG CT PROCEDURES Final Re sult * aPTT (09/12/2024 4:50 PM CDT) aPTT 34 28 - 38 sec Comment: Interpretive Data Heparin therapeutic range: 66.0 - 100.0 seconds. Range based on correlation with therapeutic heparin activity range of 0.3 - 0.7 Units/mL. Current interpretive data was last revised on 2023. Blood 09/12/2024 4:50 PM CDT 09/12/2024 5:04 PM CDT us Viky Gomez MD LAB BLOOD ORDERABLES Final Result [facility] [place] [address] * Protime-INR (09/12/2024 4:50 PM CDT) Pathologist [facility] [place] PT 12.4 9.7 - 13.0 sec INR 1.14 0.90 - 1.20 [facility] Comment: Interpretive data Oral anticoagulant therapeutic ranges: Venous thromboembolism prophylaxis or treatment: 2.0-3.0 CARDIOLOGY Standard range: 2.0-3.0 High-intensity range: 2.5-3.5 Refer to indication-specific guidelines for appropriate target ranges for prosthetic heart valve replacement. Current interpretive data was last revised on 2019. Blood 09/12/2024 4:50 PM CDT 09/12/2024 5:04 PM CDT us Viky Gomez MD LAB BLOOD ORDERABLES Final Result Performing Organization Address [facility] Co de Phone Number [facility] [place] [address] * POCT glucose (09/12/2024 4:47 PM CDT) [facility] Glucose, POC 158 70 - 199 mg/dL Blood 09/12/2024 4:47 PM CDT 09/12/2024 4:47 PM CDT us Notinfile Unknown LAB POCT ORDERABLES - DEVICE F inal Result Performing Organization Address [facility] [place] [address] * (ABNORMAL) Sepsis Lactate w/ Reflex (09/12/2024 4:26 PM CDT) [facility] Sepsis Lactate 2.8(H) 0.7 - 2.0 mmol/L Blood 09/12/2024 4:26 PM CDT 09/12/2024 4:38 PM CDT Viky Gomez MD LAB BLOOD ORDERABLES Final Result Performing Organization Address [facility] Co de Phone Number [facility] [place] [address] * eGFR (09/12/2024 4:26 PM CDT) Pathologist [facility] [place] eGFR 90 >=60 mL/min/1. 73 m2 Comment: Interpretive Data Reference Interval Normal >/= 90 mL/min/1.73m2 Mildly decreased* 60 - 89 mL/min/1.73m2 Mildly to moderately decreased 45 - 59 mL/min/1.73m2 Moderately to severely decreased 30 - 44 mL/min/1.73m2 Severely decreased 15 - 29 mL/min/1.73m2 Kidney Failure < 15 mL/min/1.73m2 *Relative to young adult level Estimated glomerular filtration rate is determined by the 2020 CKD-EPI equation recommended by the National Kidney Foundation (A Unifying Approach to GFR Estimation: Recommendations of the NKF-ASK Task Force on Reassessing the Inclusion of Race in Diagnosing Kidney Disease, JASN 2020). The CKD-EPI equation should not be used for patients with unstable renal function and has not been validated in children and those over 70. Current interpretive data was last reviewed 2021. Blood 09/12/2024 4:26 PM CDT 09/12/2024 5:11 PM CDT us Viky Gomez MD LAB BLOOD ORDERABLES Final Result Performing Organization Address [facility]/ZIP Co de Phone Number [facility] [place] [address] * Differential, auto (09/12/2024 4:26 PM CDT) Pathologist [facility] [place] Neutrophil abs 3.73 1.50 - 6.50 K/cumm Imm gran abs 0.03 0.00 - 0.10 K/cumm [facility] Lymphocyte abs 0.88 0.80 - 3.30 K/cumm [facility] Monocyte abs 0.25 0.20 - 0.80 K/cumm [facility] Eosinophil abs 0.07 0.00 - 0.50 K/cumm [facility] Basophil abs 0.02 0.00 - 0.10 K/cumm [facility] Neutrophil pct 74.9 % [facility] Comment: Interpretive Data Percent cell count reference ranges are not reported, since discordance with absolute values may lead to misinterpretation of CBC data. Current Interpretive Data was last revised on 2017. Imm gran pct 0.6 % [facility] Comment: Interpretive Data Percent cell count reference ranges are not reported, since discordance with absolute values may lead to misinterpretation of CBC data. Current Interpretive Data was last revised on 2017. Lymphocyte pct 17.7 % [facility] Comment: Interpretive Data Percent cell count reference ranges are not reported, since discordance with absolute values may lead to misinterpretation of CBC data. Current Interpretive Data was last revised on 2017. Monocyte pct 5.0 % [facility] Comment: Interpretive Data Percent cell count reference ranges are not reported, since discordance with absolute values may lead to misinterpretation of CBC data. Current Interpretive Data was last revised on 2017. Eosinophil pct 1.4 % [facility] Comment: Interpretive Data Percent cell count reference ranges are not reported, since discordance with absolute values may lead to misinterpretation of CBC data. Current Interpretive Data was last revised on 2017. Basophil pct 0.4 % [facility] Comment: Interpretive Data Percent cell count reference ranges are not reported, since discordance with absolute values may lead to misinterpretation of CBC data. Current Interpretive Data was last revised on 2017. Blood 09/12/2024 4:26 PM CDT 09/12/2024 5:31 PM CDT us Viky Gomez MD LAB BLOOD ORDERABLES Final Result [facility] [place] [address] * (ABNORMAL) CBC with auto differential (09/12/2024 4:26 PM CDT) WBC 4.98 3.80 - 9.90 K/cumm Hgb 13.5 13.0 - 17.5 g/dL [facility] Hct 42.0 38.9 - 50.3 % [facility] Plt 212 150 - 400 K/cumm [facility] MPV 10.1 9.1 - 12.3 fL [facility] RBC 4.77 4.30 - 5.80 M/cumm [facility] MCV 88.1 81.3 - 96.4 fL [facility] MCH 28.3 27.1 - 33.3 pg [facility] MCHC 32.1(L) 32.3 - 35.7 g/dL [facility] RDW CV 16.9(H) 11.1 - 14.9 % [facility] RDW SD 54.1(H) 35.7 - 48.1 fL [facility] NRBC abs 0.00 0.00 - 0.01 K/cumm [facility] Blood 09/12/2024 4:26 PM CDT 09/12/2024 5:31 PM CDT Viky Gomez MD LAB BLOOD ORDERABLES Final Result [facility] [place] [address] * Blood culture Blood Peripheral (09/12/2024 4:26 PM CDT) Pathologist [facility] [place] Report Final Report: No growth Blood (Peripheral) 09/12/2024 4:26 PM CDT 09/12/2024 4:42 PM CDT Narrative [facility] - 09/17/2024 7:01 AM CDT From a different site than #1. Draw Blood cultures before administration of Antibiotics Collection->Peripheral 1. Blood cultures are incubated for 4 days on a continuously monitored blood culture system. The first report of a negative culture is issued within 24 hours of receipt of the specimen in the laboratory. 2. Positive culture results are reported as soon as they are detected. 3. The most important factor for detection of microbes in the setting of bloodstream infection is the volume of blood submitted for culture. Failure to collect an optimal blood volume can result in false negative blood cultures. 4. For pediatric patients, the recommended blood volume to collect follows a weight based strategy. See the electronic test catalog for collection instructions. 5. For positive blood cultures, a rapid molecular test may be performed for organism identification using the katie ePlex blood culture identification panel for gram positive (BCID-GP) and gram negative (BCID-GN) organisms. This nucleic acid amplification test detects microbial DNA in positive blood culture broth. This assay has been cleared by the [place] Food and Drug Administration and its performance characteristics have been verified by the [facility]. For questions about this culture, contact the Microbiology Laboratory at [phone]. Interpretive data was last revised on 24. Viky Gomez MD LAB MICROBIOLOGY - GENERAL ORDERABLES Final Result [facility] [place] [address] * Blood culture Blood Peripheral (09/12/2024 4:26 PM CDT) Report Final Report: No growth Blood (Peripheral) 09/12/2024 4:26 PM CDT 09/12/2024 4:42 PM CDT [facility] - 09/17/2024 7:01 AM CDT Draw Blood cultures before administration of Antibiotics Collection->Peripheral 1. Blood cultures are incubated for 4 days on a continuously monitored blood culture system. The first report of a negative culture is issued within 24 hours of receipt of the specimen in the laboratory. 2. Positive culture results are reported as soon as they are detected. 3. The most important factor for detection of microbes in the setting of bloodstream infection is the volume of blood submitted for culture. Failure to collect an optimal blood volume can result in false negative blood cultures. 4. For pediatric patients, the recommended blood volume to collect follows a weight based strategy. See the electronic test catalog for collection instructions. 5. For positive blood cultures, a rapid molecular test may be performed for organism identification using the katie [employer]Plex blood culture identification panel for gram positive (BCID-GP) and gram negative (BCID-GN) organisms. This nucleic acid amplification test detects microbial DNA in positive blood culture broth. This assay has been cleared by the [place] Food and Drug Administration and its performance characteristics have been verified by the [facility]. For questions about this culture, contact the Microbiology Laboratory at [phone]. Interpretive data was last revised on 24. us Viky Gomez MD LAB MICROBIOLOGY - GENERAL ORDERABLES Final Result [facility] [place] [address] * (ABNORMAL) Comprehensive metabolic panel (09/12/2024 4:26 PM CDT) Sodium 140 135 - 145 mmol/L Potassium, pl 4.7 3.3 - 4.9 mmol/L [facility] Comment:Hemolyzed; Potassium value may be falsely elevated by as much as 0.3-0.5 mmol/L. Suggest redraw and reanalysis. Chloride 103 97 - 110 mmol/L [facility] CO2 27 22 - 32 mmol/L [facility] Anion gap 10 2 - 15 mmol/L [facility] BUN 12 6 - 25 mg/dL [facility] Creatinine 0.77(L) 0.80 - 1.30 mg/dL [facility] Glucose 130 70 - 199 mg/dL [facility] Comment: Interpretive Data Fasting glucose >/= 126 mg/dl is diagnostic for diabetes. Fasting is defined as no caloric intake for at least 8 hours. Fasting glucose between 100 mg/dl to 125 mg/dl is diagnostic of prediabetes. In a patient with classic symptoms of hyperglycemia or hyperglycemic crisis, a random glucose >/= 200 mg/dl is diagnostic for diabetes. In the absence of unequivocal hyperglycemia, results should be confirmed by repeat testing. The classification and Diagnosis of Diabetes Diabetes Care 202; 46: S19-S40. Current interpretive data was last revised 2022. Calcium 9.4 8.5 - 10.3 mg/dL [facility] Bilirubin, total 0.5 0.1 - 1.2 mg/dL [facility] Protein, pl 7.6 6.5 - 8.5 g/dL [facility] Albumin 3.7 3.5 - 5.0 g/dL [facility] Alk phos 131(H) 40 - 130 Units/L [facility] ALT 17 7 - 55 Units/L [facility] AST 46 10 - 50 Units/L [facility] Comment:Hemolyzed; result ma y be falsely elevated Blood 09/12/2024 4:26 PM CDT 09/12/2024 5:11 PM CDT us Viky Gomez MD LAB BLOOD ORDERABLES Final Result [facility] [place] [address] * XR Chest Pa Lateral 2 Vw (09/12/2024 4:13 PM CDT) Anatomical Region Laterality Modality Body, Chest N/A Computed Radiogr aphy 09/12/2024 4:38 PM CDT Impressions 09/12/2024 4:38 PM CDT Comparison made with chest radiograph 08/02/2024 and 06/06/[address] 05/31/2020 Median sternotomy wires are in unchanged alignment. 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 Mediastinal clips are unchanged. Stent in the left anterior descending coronary artery. No consolidation or pulmonary edema. No pleural effusion or pneumothorax. The cardia mediastinal silhouette is mildly enlarged and unchanged. Anterior osteophytes compatible with diffuse idiopathic skeletal hyperostosis. Electronically signed by: Desire Titus M.D. Narrative 09/12/2024 4:38 PM CDT EXAMINATION: 2 view chest radiograph Procedure Note Desire Titus MD - 09/12/2024 EXAMINATION: 2 view chest radiograph IMPRESSION: Comparison made with chest radiograph 08/02/2024 and 06/06/[address] 05/31/2020 Median sternotomy wires are in unchanged alignment. 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 Mediastinal clips are unchanged. Stent in the left anterior descending coronary artery. No consolidation or pulmonary edema. No pleural effusion or pneumothorax. The cardia mediastinal silhouette is mildly enlarged and unchanged. Anterior osteophytes compatible with diffuse idiopathic skeletal hyperostosis. Electronically signed by: Desire Titus M.D. Viky Gomez MD IMG XR PROCEDURES Final Re sult * (ABNORMAL) Protime-INR (09/07/2024) INR 1.20(A) 0.90 - 1.10 EXTERNAL LAB Blood Historical Provider MD LAB BLOOD ORDERABLES Paulette l Result Performing Organization Address [facility] de Phone Number EXTERNAL LAB * (ABNORMAL) Protime-INR (09/02/2024) INR 2.37(A) 0.90 - 1.10 EXTERNAL LAB Blood Result [facility] Historical Provider MD LAB BLOOD ORDERABLES Paulette l Result Performing Organization Address [facility] de Phone Number EXTERNAL LAB * (ABNORMAL) Protime-INR (09/02/2024) SCRIBED PT 27.0(A) 10.8 - 14.5 sec EXTERNAL LAB SCRIBED INR 2.37 2.00 - 3.00 sec EXTERNAL LAB Blood 09/02/2024 Thompson Napoles MD LAB BLOOD ORDERABLES Fin al Result Performing Organization Address [facility] Co de Phone Number EXTERNAL LAB * CBC with auto differential (09/01/2024 8:00 AM CDT) SCRIBED WBC 7.4 3.8 - 10.8 k/cumm EXTERNAL LAB SCRIBED Hemoglobin 13.5 13.5 - 16.5 g/dL EXTERNAL LAB SCRIBED Hematocrit 43.1 41 - 50 % EXTERNAL LAB SCRIBED Platelets 221 130 - 400 k/cumm EXTERNAL LAB Blood 09/01/2024 8:00 AM CDT us Thompson Napoles MD LAB BLOOD ORDERABLES Fin al Result EXTERNAL LAB * (ABNORMAL) Comprehensive metabolic panel (09/01/2024 8:00 AM CDT) SCRIBED Sodium 135 135 - 145 mmol/L EXTERNAL LAB SCRIBED Potassium 4.2 3.5 - 5.3 mmol/L EXTERNAL LAB SCRIBED Chloride 99 98 - 110 mmol/L EXTERNAL LAB SCRIBED Carbon Dioxide 24 21.0 - 34.0 mmol/L EXTERNAL LAB SCRIBED Anion Gap 16.2 10.0 - 20.0 mmol/L EXTERNAL LAB SCRIBED Urea Nitrogen (BUN) 19 5 - 25 mg/dl EXTERNAL LAB SCRIBED Creatinine 0.8 0.5 - 1.4 mg/dl EXTERNAL LAB SCRIBED Glucose 270(A) 70 - 105 mg/dl EXTERNAL LAB SCRIBED Calcium 9.1 8.6 - 10.3 mg/dl EXTERNAL LAB SCRIBED Bilirubin 0.5 0.3 - 1.0 mg/dl EXTERNAL LAB SCRIBED Plasma Protein 6.1 5.9 - 8.0 g/dl EXTERNAL LAB SCRIBED Albumin 3.4(A) 3.5 - 5.5 g/dl EXTERNAL LAB SCRIBED Alkaline Phosphatase 87 34 - 104 Units/L EXTERNAL LAB SCRIBED Alanine Transaminase (ALT) 13 2 - 45 Units/L EXTERNAL LAB SCRIBED Aspartate Transaminase (AST) 16 13 - 39 Units/L EXTERNAL LAB SCRIBED eGFR in 125 >60 EXTERNAL LAB SCRIBED eGFR in NonAfrican Finnish 103 >60 EXTERNAL LAB BUN/Creat Ratio 24.68 10 - 26 EXTERNAL LAB Globulin 2.7 1.5 - 4.0 g/dL (calc) EXTERNAL LAB ALB/GLOB RATIO CALC 1.3 >1.0 EXTERNAL LAB Blood 09/01/2024 8:00 AM CDT us Thompson Napoles MD LAB BLOOD ORDERABLES Fin al Result EXTERNAL LAB * (ABNORMAL) Lactate dehydrogenase (LD) (09/01/2024) SCRIBED LDH 336(A) 120 - 250 IUnit/mL EXTERNAL LAB Blood 09/01/2024 us Thompson Napoles MD LAB BLOOD ORDERABLES Fin al Result Performing Organization Address [facility] Co de Phone Number EXTERNAL LAB * CS GLUCOSE (08/29/2024 5:54 AM CDT) Pathologist [facility] [place] Glucose 133 70 - 199 mg/dL [facility] Comment: Interpretive Data Fasting glucose >/= 126 mg/dl is diagnostic for diabetes. Fasting is defined as no caloric intake for at least 8 hours. Fasting glucose between 100 mg/dl to 125 mg/dl is diagnostic of prediabetes. In a patient with classic symptoms of hyperglycemia or hyperglycemic crisis, a random glucose >/= 200 mg/dl is diagnostic for diabetes. In the absence of unequivocal hyperglycemia, results should be confirmed by repeat testing. The classification and Diagnosis of Diabetes Diabetes Care 2021; 46: S19-S40. Current interpretive data was last revised 2022. Testing performed by: [facility], [address] [facility], [place] [address] Blood 08/29/2024 5:54 AM CDT 08/29/2024 7:15 AM CDT us Leyda Aguilar GAS SINGER LAB BLOOD ORDERABLES Final Result Performing Organization Address [facility] Co de Phone Number [facility] [place] [address] * eGFR (08/29/2024 5:54 AM CDT) eGFR >90 >=60 mL/min/1. 73 m2 [facility] Comment: Interpretive Data Reference Interval Normal >/= 90 mL/min/1.73m2 Mildly decreased* 60 - 89 mL/min/1.73m2 Mildly to moderately decreased 45 - 59 mL/min/1.73m2 Moderately to severely decreased 30 - 44 mL/min/1.73m2 Severely decreased 15 - 29 mL/min/1.73m2 Kidney Failure < 15 mL/min/1.73m2 *Relative to young adult level Estimated glomerular filtration rate is determined by the 2020 CKD-EPI equation recommended by the National Kidney [employer] (A Unifying Approach to GFR Estimation: Recommendations of the NKF-ASK Task Force on Reassessing the Inclusion of Race in Diagnosing Kidney Disease, JASN 2020). The CKD-EPI equation should not be used for patients with unstable renal function and has not been validated in children and those over 70. Current interpretive data was last reviewed 2021. Testing performed by: [facility], [address] [place] [address]., [address] Blood 08/29/2024 5:54 AM CDT 08/29/2024 7:32 AM CDT Leyda Aguilar NP LAB BLOOD ORDERABLES Final Result [facility] [place] [address] * (ABNORMAL) Differential, auto (08/29/2024 5:54 AM CDT) Neutrophil abs 5.75 1.50 - 6.50 K/cumm [facility] Comment:Testing performed by : [facility], [address] [place] [address] Imm gran abs 0.03 0.00 - 0.10 K/cumm [facility] Comment:Testing performed by : [facility], [address] [place] [address]., [address] Lymphocyte abs 0.56(L) 0.80 - 3.30 K/cumm [facility] Comment:Testing performed by : [facility], [address] [place]., [address] Monocyte abs 0.50 0.20 - 0.80 K/cumm [facility] Comment:Testing performed by : [facility], [address] [place]., [address] Eosinophil abs 0.22 0.00 - 0.50 K/cumm [facility] Comment:Testing performed by : [facility], [address] [place]., [address] Basophil abs 0.05 0.00 - 0.10 K/cumm [facility] Comment:Testing performed by : [facility], [address] [place]., [address] Neutrophil pct 80.9 % [facility] Comment: Interpretive Data Percent cell count reference ranges are not reported, since discordance with absolute values may lead to misinterpretation of CBC data. Current Interpretive Data was last revised on 2017. Testing performed by: [facility], [address] [place] [address] Imm gran pct 0.4 % [facility] Comment: Interpretive Data Percent cell count reference ranges are not reported, since discordance with absolute values may lead to misinterpretation of CBC data. Current Interpretive Data was last revised on 2017. Testing performed by: [facility], [address] [place] [address]., [address] Lymphocyte pct 7.9 % [facility] Comment: Interpretive Data Percent cell count reference ranges are not reported, since discordance with absolute values may lead to misinterpretation of CBC data. Current Interpretive Data was last revised on 2017. Testing performed by: [facility], [address] [place] [address]., [address] Monocyte pct 7.0 % [facility] Comment: Interpretive Data Percent cell count reference ranges are not reported, since discordance with absolute values may lead to misinterpretation of CBC data. Current Interpretive Data was last revised on 2017. Testing performed by: [facility], [address] [place] [address]., [address] Eosinophil pct 3.1 % [facility] Comment: Interpretive Data Percent cell count reference ranges are not reported, since discordance with absolute values may lead to misinterpretation of CBC data. Current Interpretive Data was last revised on 2017. Testing performed by: [facility], [address] [place] [address] Basophil pct 0.7 % [facility] Comment: Interpretive Data Percent cell count reference ranges are not reported, since discordance with absolute values may lead to misinterpretation of CBC data. Current Interpretive Data was last revised on 2017. Testing performed by: [facility], [address] [place] [address] Blood 08/29/2024 5:54 AM CDT 08/29/2024 7:15 AM CDT Leyda Aguilar GAS SINGER LAB BLOOD ORDERABLES Final Result [facility] [place] [address] * (ABNORMAL) Comprehensive metabolic panel, without glucose (Outreach) (08/29/2024 5:54 AM CDT) Sodium 138 135 - 145 mmol/L [facility] Comment:Testing performed by : [facility], [address] [place] [address] Potassium, pl 3.7 3.3 - 4.9 mmol/L [facility] Comment:Testing performed by : [facility], [address] [place] [address] Chloride 101 97 - 110 mmol/L [facility] Comment:Testing performed by : [facility], [address] [place] [address] CO2 28 22 - 32 mmol/L [facility] Comment:Testing performed by : [facility], [address] [place] [address] Anion gap 9 2 - 15 mmol/L [facility] Comment:Testing performed by : [facility], [address] [facility], [address] BUN 17 6 - 25 mg/dL [facility] Comment:Testing performed by : [facility], [address] [facility], [address] Creatinine 0.71(L) 0.80 - 1.30 mg/dL [facility] Comment:Testing performed by : [facility], [address] [facility], [address] Calcium 9.4 8.5 - 10.3 mg/dL [facility] Comment:Testing performed by : [facility], [address] [facility], [address] Protein, pl 6.5 6.5 - 8.5 g/dL [facility] Comment:Testing performed by : [facility], [address] [facility], [address] Albumin 3.5 3.5 - 5.0 g/dL [facility] Comment:Testing performed by : [facility], [address] [facility], [address] Bilirubin, total 0.4 0.1 - 1.2 mg/dL [facility] Comment:Testing performed by : [facility], [address] [facility], [address] Alk phos 100 40 - 130 Units/L [facility] Comment:Testing performed by : [facility], [address] [place] [address], [address] AST 27 10 - 50 Units/L [facility] Comment:Testing performed by : [facility], [address] [place] [address], [address] ALT 16 7 - 55 Units/L [facility] Comment:Testing performed by : [facility], [address] [facility], [address] Blood 08/29/2024 5:54 AM CDT 08/29/2024 7:15 AM CDT Leyda Aguilar GAS SINGER LAB BLOOD ORDERABLES Final Result [facility] [place] [address] * (ABNORMAL) CBC with auto differential (08/29/2024 5:54 AM CDT) WBC 7.11 3.80 - 9.90 K/cumm [facility] Comment:Testing performed by : [facility], [address] [place] [address], [address] Hgb 12.3(L) 13.0 - 17.5 g/dL [facility] Comment:Testing performed by : [facility], [address] [place] [address], [address] Hct 37.4(L) 38.9 - 50.3 % [facility] Comment:Testing performed by : [facility], [address] [place] [address], [address] Plt 185 150 - 400 K/cumm [facility] Comment:Testing performed by : [facility], [address] [place] [address], [address] MPV 10.6 9.1 - 12.3 fL [facility] Comment:Testing performed by : [facility], [address] [place] [address], [address] RBC 4.35 4.30 - 5.80 M/cumm [facility] Comment:Testing performed by : [address], [address] MCV 86.0 81.3 - 96.4 fL [facility] Comment:Testing performed by : [address], [address] MCH 28.3 27.1 - 33.3 pg [facility] Comment:Testing performed by : [facility], [address] [place]., [address] MCHC 32.9 32.3 - 35.7 g/dL [facility] Comment:Testing performed by : [facility], [address] [place] [address] RDW CV 16.4(H) 11.1 - 14.9 % [facility] Comment:Testing performed by : [facility], [address] [facility], [address] RDW SD 50.7(H) 35.7 - 48.1 fL [facility] Comment:Testing performed by : [facility], [address] [facility], [address] NRBC abs 0.00 0.00 - 0.01 K/cumm [facility] Comment:Testing performed by : [facility], [address] [facility], [address] Blood 08/29/2024 5:54 AM CDT 08/29/2024 7:15 AM CDT Leyda Aguilar GAS SINGER LAB BLOOD ORDERABLES Final Result [facility] [place] [address] * (ABNORMAL) Protime-INR (08/29/2024 5:54 AM CDT) PT 23.3(H) 9.7 - 13.0 sec [facility] Comment:Testing performed by : [facility], [address] [place] [address] INR 2.12(H) 0.90 - 1.20 [facility] Comment: Interpretive data Oral anticoagulant therapeutic ranges: Venous thromboembolism prophylaxis or treatment: 2.0-3.0 CARDIOLOGY Standard range: 2.0-3.0 High-intensity range: 2.5-3.5 Refer to indication-specific guidelines for appropriate target ranges for prosthetic heart valve replacement. Current interpretive data was last revised on 2019. Testing performed by: [facility], [address] [place] [address]., [address] Blood 08/29/2024 5:54 AM CDT 08/29/2024 7:15 AM CDT us Leyda Itzel Aguilar GAS SINGER LAB BLOOD ORDERABLES Final Result [facility] Department [place] [address] * Phosphorus (08/29/2024 5:54 AM CDT) Phosphorus, pl 2.6 2.3 - 4.5 mg/dL [facility] Comment:Testing performed by : [facility], [address] [place] [address]., [address] Blood 08/29/2024 5:54 AM CDT 08/29/2024 7:15 AM CDT us Leyda Itzel Aguilar GAS SINGER LAB BLOOD ORDERABLES Final Result Performing Organization Address [facility]/ZIP Co de Phone Number [facility] Department [place] [address] * Magnesium (08/29/2024 5:54 AM CDT) Magnesium 1.9 1.4 - 2.5 mg/dL [facility] Comment:Testing performed by : [facility], [address] [place] [address]., [address] Blood 08/29/2024 5:54 AM CDT 08/29/2024 7:15 AM CDT us Leyda Itzel Aguilar GAS SINGER LAB BLOOD ORDERABLES Final Result [facility] [place] [address] * (ABNORMAL) Protime-INR (08/28/2024 4:44 AM CDT) PT 20.0(H) 9.7 - 13.0 sec [facility] Comment:Testing performed by : [facility], [address] [place] [address] INR 1.83(H) 0.90 - 1.20 [facility] Comment: Interpretive data Oral anticoagulant therapeutic ranges: Venous thromboembolism prophylaxis or treatment: 2.0-3.0 CARDIOLOGY Standard range: 2.0-3.0 High-intensity range: 2.5-3.5 Refer to indication-specific guidelines for appropriate target ranges for prosthetic heart valve replacement. Current interpretive data was last revised on 2019. Testing performed by: [facility], [address] [place] [address]., [address] Blood 08/28/2024 4:44 AM CDT 08/28/2024 9:55 AM CDT us Notinfile Unknown LAB BLOOD ORDERABLES Final Res ult [facility] [place] [address] * (ABNORMAL) Protime-INR (08/27/2024 4:30 AM CDT) PT 18.5(H) 9.7 - 13.0 sec [facility] Comment:Testing performed by : [facility], [address] [place] [address]., [address] INR 1.69(H) 0.90 - 1.20 [facility] Comment: Interpretive data Oral anticoagulant therapeutic ranges: Venous thromboembolism prophylaxis or treatment: 2.0-3.0 CARDIOLOGY Standard range: 2.0-3.0 High-intensity range: 2.5-3.5 Refer to indication-specific guidelines for appropriate target ranges for prosthetic heart valve replacement. Current interpretive data was last revised on 2019. Testing performed by: [facility], [address] [place] [address] Blood 08/27/2024 4:30 AM CDT 08/27/2024 8:05 AM CDT us Notinfile Unknown LAB BLOOD ORDERABLES Final Res ult [facility] [place] [address] * (ABNORMAL) Protime-INR (08/26/2024 6:30 AM CDT) PT 16.9(H) 9.7 - 13.0 sec [facility] Comment:Testing performed by : [facility], [address] [place] [address]., [address] INR 1.55(H) 0.90 - 1.20 [facility] Comment: Interpretive data Oral anticoagulant therapeutic ranges: Venous thromboembolism prophylaxis or treatment: 2.0-3.0 CARDIOLOGY Standard range: 2.0-3.0 High-intensity range: 2.5-3.5 Refer to indication-specific guidelines for appropriate target ranges for prosthetic heart valve replacement. Current interpretive data was last revised on 2019. Testing performed by: [facility], [address] [place] [address]., [address] Blood 08/26/2024 6:30 AM CDT 08/26/2024 7:22 AM CDT us Notinfile Unknown LAB BLOOD ORDERABLES Final Res ult [facility] [place] [address] * Differential, auto (08/25/2024 6:32 AM CDT) Neutrophil abs 5.56 1.50 - 6.50 K/cumm [facility] Comment:Testing performed by : [facility], [address] [place] [address] Imm gran abs 0.04 0.00 - 0.10 K/cumm [facility] Comment:Testing performed by : [facility], [address] [place] [address] Lymphocyte abs 0.81 0.80 - 3.30 K/cumm [facility] Comment:Testing performed by : [facility], [address] [place] [address] Monocyte abs 0.53 0.20 - 0.80 K/cumm [facility] Comment:Testing performed by : [facility], [address] [place] [address] Eosinophil abs 0.27 0.00 - 0.50 K/cumm [facility] Comment:Testing performed by : [facility], [address] [place] [address]., [address] Basophil abs 0.09 0.00 - 0.10 K/cumm [facility] Comment:Testing performed by : [facility], [address] [place] [address]., [address] Neutrophil pct 76.2 % [facility] Comment: Interpretive Data Percent cell count reference ranges are not reported, since discordance with absolute values may lead to misinterpretation of CBC data. Current Interpretive Data was last revised on 2017. Testing performed by: [facility], [address] [place] [address] Imm gran pct 0.5 % [facility] Comment: Interpretive Data Percent cell count reference ranges are not reported, since discordance with absolute values may lead to misinterpretation of CBC data. Current Interpretive Data was last revised on 2017. Testing performed by: [facility], [address] [place] [address]., [address] Lymphocyte pct 11.1 % [facility] Comment: Interpretive Data Percent cell count reference ranges are not reported, since discordance with absolute values may lead to misinterpretation of CBC data. Current Interpretive Data was last revised on 2017. Testing performed by: [facility], [address] [place] [address] Monocyte pct 7.3 % [facility] Comment: Interpretive Data Percent cell count reference ranges are not reported, since discordance with absolute values may lead to misinterpretation of CBC data. Current Interpretive Data was last revised on 2017. Testing performed by: [facility], [address] [place] [address] Eosinophil pct 3.7 % [facility] Comment: Interpretive Data Percent cell count reference ranges are not reported, since discordance with absolute values may lead to misinterpretation of CBC data. Current Interpretive Data was last revised on 2017. Testing performed by: [facility], [address] [place] [address] Basophil pct 1.2 % [facility] Comment: Interpretive Data Percent cell count reference ranges are not reported, since discordance with absolute values may lead to misinterpretation of CBC data. Current Interpretive Data was last revised on 2017. Testing performed by: [facility], [address] [place] [address]., [address] Blood 08/25/2024 6:32 AM CDT 08/25/2024 7:57 AM CDT Leyda Aguilar GAS SINGER LAB BLOOD ORDERABLES Final Result [facility] [place] [address] * (ABNORMAL) CBC with auto differential (08/25/2024 6:32 AM CDT) WBC 7.30 3.80 - 9.90 K/cumm [facility] Comment:Testing performed by : [facility], [address] [place] [address] Hgb 12.6(L) 13.0 - 17.5 g/dL [facility] Comment:Testing performed by : [facility], [address] [facility], [address] Hct 38.6(L) 38.9 - 50.3 % [facility] Comment:Testing performed by : [facility], [address] [facility], [address] Plt 210 150 - 400 K/cumm [facility] Comment:Testing performed by : [facility], [address] [facility], [address] MPV 11.2 9.1 - 12.3 fL [facility] Comment:Testing performed by : [facility], [address] [facility], [address] RBC 4.54 4.30 - 5.80 M/cumm [facility] Comment:Testing performed by : [facility], [address] [facility], [address] MCV 85.0 81.3 - 96.4 fL [facility] Comment:Testing performed by : [facility], [address] [facility], [address] MCH 27.8 27.1 - 33.3 pg [facility] Comment:Testing performed by : [facility], [address] [facility], [address] MCHC 32.6 32.3 - 35.7 g/dL [facility] Comment:Testing performed by : [facility], [address] [facility], [address] RDW CV 16.3(H) 11.1 - 14.9 % [facility] Comment:Testing performed by : [facility] [facility], [facility], [address] RDW SD 50.4(H) 35.7 - 48.1 fL CERNER B[facility] Comment:Testing performed by : [facility], 1 [facility], [address] NRBC abs 0.00 0.00 - 0.01 K/cumm CERNER BJ Comment:Testing performed by : [facility], [address] [place] [address]., [address] Blood 08/25/2024 6:32 AM CDT 08/25/2024 7:57 AM CDT Leyda Itzel Aguliar GAS SINGER LAB BLOOD ORDERABLES Final Result Performing Organization Address City/[facility] Co de Phone Number [facility] [place] [address] * (ABNORMAL) Protime-INR (08/25/2024 6:32 AM CDT) PT 21.7(H) 9.7 - 13.0 sec [facility] Comment:Testing performed by : [facility], [address] [place] [address]., [address] INR 1.98(H) 0.90 - 1.20 [facility] Comment: Interpretive data Oral anticoagulant therapeutic ranges: Venous thromboembolism prophylaxis or treatment: 2.0-3.0 CARDIOLOGY Standard range: 2.0-3.0 High-intensity range: 2.5-3.5 Refer to indication-specific guidelines for appropriate target ranges for prosthetic heart valve replacement. Current interpretive data was last revised on 2019. Testing performed by: [facility], [address] [place] [address]., [address] Blood 08/25/2024 6:32 AM CDT 08/25/2024 7:57 AM CDT us Leyda [facility] GAS SINGER LAB BLOOD ORDERABLES Final Result Performing Organization Address City/[facility] Co de Phone Number [facility] [place] [address] * Phosphorus (08/25/2024 6:32 AM CDT) Phosphorus, pl 3.1 2.3 - 4.5 mg/dL [facility] Comment:Testing performed by : [facility], [address] [place] [address]., [id number] Blood 08/25/2024 6:32 AM CDT 08/25/2024 7:57 AM CDT Leydajannet Aguilar GAS SINGER LAB BLOOD ORDERABLES Final Result Performing Organization Address City/[facility] Co de Phone Number [facility] Department [place] [address] * Magnesium (08/25/2024 6:32 AM CDT) Pathologist [facility] [place] Magnesium 1.9 1.4 - 2.5 mg/dL [facility] Comment:Testing performed by : [facility], [address] [place] [address]., [address] Blood 08/25/2024 6:32 AM CDT 08/25/2024 7:57 AM CDT us Leydajannet Fosterpton GAS SINGER LAB BLOOD ORDERABLES Final Result Performing Organization Address City/[facility] Co de Phone Number [facility] Department [place] [address] * eGFR (08/25/2024 6:31 AM CDT) eGFR 87 >=60 mL/min/1. 73 m2 [facility] Comment: Interpretive Data Reference Interval Normal >/= 90 mL/min/1.73m2 Mildly decreased* 60 - 89 mL/min/1.73m2 Mildly to moderately decreased 45 - 59 mL/min/1.73m2 Moderately to severely decreased 30 - 44 mL/min/1.73m2 Severely decreased 15 - 29 mL/min/1.73m2 Kidney Failure < 15 mL/min/1.73m2 *Relative to young adult level Estimated glomerular filtration rate is determined by the 2020 CKD-EPI equation recommended by the National Kidney Foundation (A Unifying Approach to GFR Estimation: Recommendations of the NKF-ASK Task Force on Reassessing the Inclusion of Race in Diagnosing Kidney Disease, JASN 2020). The CKD-EPI equation should not be used for patients with unstable renal function and has not been validated in children and those over 70. Current interpretive data was last reviewed 2021. Testing performed by: [facility], [address] [place] [address] Blood 08/25/2024 6:31 AM CDT 08/25/2024 8:04 AM CDT us Physician No LAB BLOOD ORDERABLES Final Resul t [facility] [place] [address] * (ABNORMAL) Comprehensive metabolic panel (08/25/2024 6:31 AM CDT) Sodium 139 135 - 145 mmol/L FRANCIA [facility] Comment:Testing performed by : [facility], [address] [place] [address]., [address] Potassium, pl 3.7 3.3 - 4.9 mmol/L [facility] Comment:Testing performed by : [facility], [address] [place] [address] Chloride 101 97 - 110 mmol/L [facility] Comment:Testing performed by : [facility], [address] [place] [address] CO2 28 22 - 32 mmol/L [facility] Comment:Testing performed by : [facility], [address] [place] [address]., [address] Anion gap 10 2 - 15 mmol/L [facility] Comment:Testing performed by : [facility], [address] [place] [address] BUN 20 6 - 25 mg/dL [facility] Comment:Testing performed by : [facility], [address] [place] [address]., [address] Creatinine 0.87 0.80 - 1.30 mg/dL CERNER [facility] Comment:Testing performed by : [facility], [address] [place] [address] Glucose 188 70 - 199 mg/dL CERNER [facility] Comment: Interpretive Data Fasting glucose >/= 126 mg/dl is diagnostic for diabetes. Fasting is defined as no caloric intake for at least 8 hours. Fasting glucose between 100 mg/dl to 125 mg/dl is diagnostic of prediabetes. In a patient with classic symptoms of hyperglycemia or hyperglycemic crisis, a random glucose >/= 200 mg/dl is diagnostic for diabetes. In the absence of unequivocal hyperglycemia, results should be confirmed by repeat testing. The classification and Diagnosis of Diabetes Diabetes Care 2021; 46: S19-S40. Current interpretive data was last revised 2022. Testing performed by: [facility], 1 [facility], [address] Calcium 9.5 8.5 - 10.3 mg/dL CERNER [facility] Comment:Testing performed by : [facility], 1 [facility], [address] Bilirubin, total 0.5 0.1 - 1.2 mg/dL CERNER [facility] Comment:Testing performed by : [facility], 1 [facility], [address] Protein, pl 6.7 6.5 - 8.5 g/dL CERNER [facility] Comment:Testing performed by : [facility], 1 [facility], [address] Albumin 3.4(L) 3.5 - 5.0 g/dL CERNER [facility] Comment:Testing performed by : [facility], [address] [place] [address] Alk phos 96 40 - 130 Units/L CERNER [facility] Comment:Testing performed by : [facility], [address] [place] [address], [address] ALT 13 7 - 55 Units/L CERNER [facility] Comment:Testing performed by : [facility], [address] [place] [address] AST 21 10 - 50 Units/L [facility] Comment:Testing performed by : [facility], [address] [place] [address] Blood 08/25/2024 6:31 AM CDT 08/25/2024 7:58 AM CDT Physician No LAB BLOOD ORDERABLES Final Resul t Performing Organization Address City/[facility] Co de Phone Number [facility] [place] [place] [address] * (ABNORMAL) Protime-INR (08/24/2024 6:11 AM CDT) PT 36.9(H) 9.7 - 13.0 sec [facility] Comment:Testing performed by : [facility], [address] [place] [address] INR 3.33(H) 0.90 - 1.20 [facility] Comment: Interpretive data Oral anticoagulant therapeutic ranges: Venous thromboembolism prophylaxis or treatment: 2.0-3.0 CARDIOLOGY Standard range: 2.0-3.0 High-intensity range: 2.5-3.5 Refer to indication-specific guidelines for appropriate target ranges for prosthetic heart valve replacement. Current interpretive data was last revised on 2019. Testing performed by: [facility], [address] [place] [address] Blood 08/24/2024 6:11 AM CDT 08/24/2024 7:28 AM CDT Medicine LAB BLOOD ORDERABLES Final Resul t Performing Organization Address City/[facility] Co de Phone Number [facility] [place] [address] * (ABNORMAL) Protime-INR (08/23/2024 5:10 AM CDT) PT 54.3(H) 9.7 - 13.0 sec [facility] Comment:Testing performed by : [facility], [address] [place] [address] INR 4.87(H) 0.90 - 1.20 [facility] Comment: Interpretive data Oral anticoagulant therapeutic ranges: Venous thromboembolism prophylaxis or treatment: 2.0-3.0 CARDIOLOGY Standard range: 2.0-3.0 High-intensity range: 2.5-3.5 Refer to indication-specific guidelines for appropriate target ranges for prosthetic heart valve replacement. Current interpretive data was last revised on 2019. Testing performed by: [facility], [address] [place] [address]., [address] Blood 08/23/2024 5:10 AM CDT 08/23/2024 7:17 AM CDT us Notinfile Unknown LAB BLOOD ORDERABLES Final Res ult [facility] [place] [address] * (ABNORMAL) Protime-INR (08/22/2024 5:55 PM CDT) PT 54.7(H) 9.7 - 13.0 sec [facility] Comment:Testing performed by : [facility], [address] [place] [address]., [address] INR 4.90(H) 0.90 - 1.20 [facility] Comment: Interpretive data Oral anticoagulant therapeutic ranges: Venous thromboembolism prophylaxis or treatment: 2.0-3.0 CARDIOLOGY Standard range: 2.0-3.0 High-intensity range: 2.5-3.5 Refer to indication-specific guidelines for appropriate target ranges for prosthetic heart valve replacement. Current interpretive data was last revised on 2019. Testing performed by: [facility], [address] [place] [address]., [address] Blood 08/22/2024 5:55 PM CDT 08/22/2024 7:49 PM CDT us Notinfile Unknown LAB BLOOD ORDERABLES Final Res ult Performing Organization Address [facility] Co de Phone Number [facility] [place] [address] * CS GLUCOSE (08/22/2024 5:41 AM CDT) Glucose 163 70 - 199 mg/dL [facility] Comment: Interpretive Data Fasting glucose >/= 126 mg/dl is diagnostic for diabetes. Fasting is defined as no caloric intake for at least 8 hours. Fasting glucose between 100 mg/dl to 125 mg/dl is diagnostic of prediabetes. In a patient with classic symptoms of hyperglycemia or hyperglycemic crisis, a random glucose >/= 200 mg/dl is diagnostic for diabetes. In the absence of unequivocal hyperglycemia, results should be confirmed by repeat testing. The classification and Diagnosis of Diabetes Diabetes Care 2021; 46: S19-S40. Current interpretive data was last revised 2022. Testing performed by: [facility], [address] [facility], [place]., [address] Blood 08/22/2024 5:41 AM CDT 08/22/2024 7:51 AM CDT us Leyda Aguilar GAS SINGER LAB BLOOD ORDERABLES Final Result Performing Organization Address [facility] de Phone Number [facility] [place] [address] * eGFR (08/22/2024 5:41 AM CDT) eGFR 90 >=60 mL/min/1. 73 m2 [facility] Comment: Interpretive Data Reference Interval Normal >/= 90 mL/min/1.73m2 Mildly decreased* 60 - 89 mL/min/1.73m2 Mildly to moderately decreased 45 - 59 mL/min/1.73m2 Moderately to severely decreased 30 - 44 mL/min/1.73m2 Severely decreased 15 - 29 mL/min/1.73m2 Kidney Failure < 15 mL/min/1.73m2 *Relative to young adult level Estimated glomerular filtration rate is determined by the 2020 CKD-EPI equation recommended by the National Kidney Foundation (A Unifying Approach to GFR Estimation: Recommendations of the NKF-ASK Task Force on Reassessing the Inclusion of Race in Diagnosing Kidney Disease, JASN 2020). The CKD-EPI equation should not be used for patients with unstable renal function and has not been validated in children and those over 70. Current interpretive data was last reviewed 2021. Testing performed by: [facility], [address] [place] [address]., [address] Blood 08/22/2024 5:41 AM CDT 08/22/2024 7:55 AM CDT us Leyda Aguilar GAS SINGER LAB BLOOD ORDERABLES Final Result [facility] [place] [address] * (ABNORMAL) Differential, auto (08/22/2024 5:41 AM CDT) Neutrophil abs 5.51 1.50 - 6.50 K/cumm [facility] Comment:Testing performed by : [facility], [address] [place] [address]., [address] Imm gran abs 0.02 0.00 - 0.10 K/cumm [facility] Comment:Testing performed by : [facility], [address] [place] [address]., [address] Lymphocyte abs 0.66(L) 0.80 - 3.30 K/cumm [facility] Comment:Testing performed by : [facility], [address] [place] [address] Monocyte abs 0.51 0.20 - 0.80 K/cumm [facility] Comment:Testing performed by : [facility], [address] [place] [address] Eosinophil abs 0.11 0.00 - 0.50 K/cumm [facility] Comment:Testing performed by : [facility], [address] [place] [address] Basophil abs 0.05 0.00 - 0.10 K/cumm [facility] Comment:Testing performed by : [facility], [address] [place] [address] Neutrophil pct 80.4 % [facility] Comment: Interpretive Data Percent cell count reference ranges are not reported, since discordance with absolute values may lead to misinterpretation of CBC data. Current Interpretive Data was last revised on 2017. Testing performed by: [facility], [address] [place] [address] Imm gran pct 0.3 % [facility] Comment: Interpretive Data Percent cell count reference ranges are not reported, since discordance with absolute values may lead to misinterpretation of CBC data. Current Interpretive Data was last revised on 2017. Testing performed by: [facility], [address] [place] [address]., [address] Lymphocyte pct 9.6 % CERNER [facility] Comment: Interpretive Data Percent cell count reference ranges are not reported, since discordance with absolute values may lead to misinterpretation of CBC data. Current Interpretive Data was last revised on 2017. Testing performed by: [facility], [address] [place] [address] Monocyte pct 7.4 % [facility] Comment: Interpretive Data Percent cell count reference ranges are not reported, since discordance with absolute values may lead to misinterpretation of CBC data. Current Interpretive Data was last revised on 2017. Testing performed by: [facility], [address] [place] [address] Eosinophil pct 1.6 % [facility] Comment: Interpretive Data Percent cell count reference ranges are not reported, since discordance with absolute values may lead to misinterpretation of CBC data. Current Interpretive Data was last revised on 2017. Testing performed by: [facility], [address] [place] [address] Basophil pct 0.7 % CERVICTOR M [facility] Comment: Interpretive Data Percent cell count reference ranges are not reported, since discordance with absolute values may lead to misinterpretation of CBC data. Current Interpretive Data was last revised on 2017. Testing performed by: [facility], [address] [place] [address] Blood 08/22/2024 5:41 AM CDT 08/22/2024 7:51 AM CDT Leyda Aguilar NP LAB BLOOD ORDERABLES Final Result [facility] [place] [address] * (ABNORMAL) Comprehensive metabolic panel, without glucose (Outreach) (08/22/2024 5:41 AM CDT) Sodium 140 135 - 145 mmol/L CERVICTOR M [facility] Comment:Testing performed by : [facility], [address] [place] [address] Potassium, pl 4.2 3.3 - 4.9 mmol/L CERVICTOR M [facility] Comment:Testing performed by : [facility], [address] [place] [address] Chloride 105 97 - 110 mmol/L CERVICTOR M [facility] Comment:Testing performed by : [facility], [address] [place] [address] CO2 27 22 - 32 mmol/L [facility]ICTOR M [facility] Comment:Testing performed by : [facility], [address] [place] [address] Anion gap 8 2 - 15 mmol/L CERVICTOR M [facility] Comment:Testing performed by : [facility], [address] [place] [address] BUN 21 6 - 25 mg/dL CERVICTOR M [facility]J Comment:Testing performed by : [facility], 1 [facility], [address] Creatinine 0.78(L) 0.80 - 1.30 mg/dL [facility] Comment:Testing performed by : [facility], 1 [facility], [address] Calcium 9.1 8.5 - 10.3 mg/dL [facility] Comment:Testing performed by : [facility], 1 [facility], [address] Protein, pl 6.6 6.5 - 8.5 g/dL [facility] Comment:Testing performed by : [facility], 1 [facility], [address] Albumin 3.1(L) 3.5 - 5.0 g/dL [facility] Comment:Testing performed by : [facility], 1 [facility], [address] Bilirubin, total 0.4 0.1 - 1.2 mg/dL [facility] Comment:Testing performed by : [facility], 1 [facility], [address] Alk phos 98 40 - 130 Units/L [facility] Comment:Testing performed by : [facility], 1 [facility], [address] AST 22 10 - 50 Units/L [facility] Comment:Testing performed by : [facility], [address] [place] [address], [address] ALT 14 7 - 55 Units/L [facility] Comment:Testing performed by : [facility], [address] [place] [address], [address] Blood 08/22/2024 5:41 AM CDT 08/22/2024 7:51 AM CDT Leyda Aguilar NP LAB BLOOD ORDERABLES Final Result [facility] [place] [address] * (ABNORMAL) CBC with auto differential (08/22/2024 5:41 AM CDT) WBC 6.86 3.80 - 9.90 K/cumm [facility] Comment:Testing performed by : [facility], 1 [facility], [address] Hgb 12.6(L) 13.0 - 17.5 g/dL [facility] Comment:Testing performed by : [facility], 1 [facility], [address] Hct 39.3 38.9 - 50.3 % [facility] Comment:Testing performed by : [facility], [address] [place] [address], [address] Plt 193 150 - 400 K/cumm [facility] Comment:Testing performed by : [facility], [address] [place] [address], [address] MPV 11.2 9.1 - 12.3 fL [facility] Comment:Testing performed by : [facility], 1 [facility], [address] RBC 4.59 4.30 - 5.80 M/cumm [facility] Comment:Testing performed by : [facility], [address] [place] [address], [address] MCV 85.6 81.3 - 96.4 fL [facility] Comment:Testing performed by : [facility], [address] [place] [address], [address] MCH 27.5 27.1 - 33.3 pg CERVICTOR M [facility] Comment:Testing performed by : [facility], [address] [place] [address], [address] MCHC 32.1(L) 32.3 - 35.7 g/dL CERVICTOR M [facility] Comment:Testing performed by : [facility], [address] [place] [address] RDW CV 16.4(H) 11.1 - 14.9 % [facility] Comment:Testing performed by : [facility], [address] [place] [address] RDW SD 50.8(H) 35.7 - 48.1 fL [facility] Comment:Testing performed by : [facility], [address] [place] [address] NRBC abs 0.00 0.00 - 0.01 K/cumm [facility] Comment:Testing performed by : [facility], 1 [facility], [address] Blood 08/22/2024 5:41 AM CDT 08/22/2024 7:51 AM CDT Leyda Aguilar GAS SINGER LAB BLOOD ORDERABLES Final Result [facility] [place] [address] * (ABNORMAL) Protime-INR (08/22/2024 5:41 AM CDT) PT 53.8(H) 9.7 - 13.0 sec [facility] Comment:Testing performed by : [facility], 1 [facility], [address] INR 4.82(H) 0.90 - 1.20 [facility] Comment: Interpretive data Oral anticoagulant therapeutic ranges: Venous thromboembolism prophylaxis or treatment: 2.0-3.0 CARDIOLOGY Standard range: 2.0-3.0 High-intensity range: 2.5-3.5 Refer to indication-specific guidelines for appropriate target ranges for prosthetic heart valve replacement. Current interpretive data was last revised on 2019. Testing performed by: [facility], [address] [place] [address] Blood 08/22/2024 5:41 AM CDT 08/22/2024 7:51 AM CDT Leyda Aguilar GAS SINGER LAB BLOOD ORDERABLES Final Result Performing Organization Address [facility] de Phone Number [facility] [place] [address] * Phosphorus (08/22/2024 5:41 AM CDT) [facility] Phosphorus, pl 2.3 2.3 - 4.5 mg/dL [facility] Comment:Testing performed by : [facility], [address] [place] [address]., [address] Blood 08/22/2024 5:41 AM CDT 08/22/2024 7:51 AM CDT Leydajannet Aguilar GAS SINGER LAB BLOOD ORDERABLES Final Result Performing Organization Address [facility] de Phone Number [facility] [place] [address] * Magnesium (08/22/2024 5:41 AM CDT) [facility] Magnesium 2.1 1.4 - 2.5 mg/dL [facility] Comment:Testing performed by : [facility], [address] [place] [address], [place]., [address] Blood 08/22/2024 5:41 AM CDT 08/22/2024 7:51 AM CDT Leyda Itzel Fosterpton GAS SINGER LAB BLOOD ORDERABLES Final Result Performing Organization Address [facility] [place] [address] * (ABNORMAL) CS GLUCOSE (08/18/2024 12:34 PM CDT) [facility] Glucose 306(H) 70 - 199 mg/dL [facility] Comment: Interpretive Data Fasting glucose >/= 126 mg/dl is diagnostic for diabetes. Fasting is defined as no caloric intake for at least 8 hours. Fasting glucose between 100 mg/dl to 125 mg/dl is diagnostic of prediabetes. In a patient with classic symptoms of hyperglycemia or hyperglycemic crisis, a random glucose >/= 200 mg/dl is diagnostic for diabetes. In the absence of unequivocal hyperglycemia, results should be confirmed by repeat testing. The classification and Diagnosis of Diabetes Diabetes Care 202; 46: S19-S40. Current interpretive data was last revised 2022. Testing performed by: [facility], [address] [facility], [place]., [address] Blood 08/18/2024 12:3 4 PM CDT 08/18/2024 4:38 PM CDT Leyda Aguilar GAS SINGER LAB BLOOD ORDERABLES Final Result [facility] [place] [address] * eGFR (08/18/2024 12:34 PM CDT) eGFR 88 >=60 mL/min/1. 73 m2 [facility] Comment: Interpretive Data Reference Interval Normal >/= 90 mL/min/1.73m2 Mildly decreased* 60 - 89 mL/min/1.73m2 Mildly to moderately decreased 45 - 59 mL/min/1.73m2 Moderately to severely decreased 30 - 44 mL/min/1.73m2 Severely decreased 15 - 29 mL/min/1.73m2 Kidney Failure < 15 mL/min/1.73m2 *Relative to young adult level Estimated glomerular filtration rate is determined by the 2020 CKD-EPI equation recommended by the National Kidney Foundation (A Unifying Approach to GFR Estimation: Recommendations of the NKF-ASK Task Force on Reassessing the Inclusion of Race in Diagnosing Kidney Disease, JASN 2020). The CKD-EPI equation should not be used for patients with unstable renal function and has not been validated in children and those over 70. Current interpretive data was last reviewed 2021. Testing performed by: [facility], [address] [place]., [address] Blood 08/18/2024 12:3 4 PM CDT 08/18/2024 5:02 PM CDT Leydaqing Aguilar GAS SINGER LAB BLOOD ORDERABLES Final Result [facility] [place] [address] * (ABNORMAL) Differential, auto (08/18/2024 12:34 PM CDT) Neutrophil abs 7.43(H) 1.50 - 6.50 K/cumm [facility] Comment:Testing performed by : [facility], [address] [place] [address]., [id number] Imm gran abs 0.06 0.00 - 0.10 K/cumm [facility] Comment:Testing performed by : [facility], [address] [place] [address]., [id number] Lymphocyte abs 0.51(L) 0.80 - 3.30 K/cumm [facility] Comment:Testing performed by : [facility], [address] [place] [address]., [address] Monocyte abs 0.52 0.20 - 0.80 K/cumm [facility] Comment:Testing performed by : [facility], [address] [place] [address]., [id number] Eosinophil abs 0.05 0.00 - 0.50 K/cumm [facility] Comment:Testing performed by : [facility], [address] [place] [address] Basophil abs 0.07 0.00 - 0.10 K/cumm [facility] Comment:Testing performed by : [facility], [address] [place] [address], [id number] Neutrophil pct 86.0 % [facility] Comment: Interpretive Data Percent cell count reference ranges are not reported, since discordance with absolute values may lead to misinterpretation of CBC data. Current Interpretive Data was last revised on 2017. Testing performed by: [facility], [address] [place], [place]., Imm gran pct 0.7 % [facility] Comment: Interpretive Data Percent cell count reference ranges are not reported, since discordance with absolute values may lead to misinterpretation of CBC data. Current Interpretive Data was last revised on 2017. Testing performed by: [facility], [address] [place] [address] Lymphocyte pct 5.9 % [facility] Comment: Interpretive Data Percent cell count reference ranges are not reported, since discordance with absolute values may lead to misinterpretation of CBC data. Current Interpretive Data was last revised on 2017. Testing performed by: [facility], [address] [place]., [address] Monocyte pct 6.0 % [facility] Comment: Interpretive Data Percent cell count reference ranges are not reported, since discordance with absolute values may lead to misinterpretation of CBC data. Current Interpretive Data was last revised on 2017. Testing performed by: [facility], [address] [place] [address] Eosinophil pct 0.6 % [facility] Comment: Interpretive Data Percent cell count reference ranges are not reported, since discordance with absolute values may lead to misinterpretation of CBC data. Current Interpretive Data was last revised on 2017. Testing performed by: [facility], [address] [place]., [address] Basophil pct 0.8 % [facility] Comment: Interpretive Data Percent cell count reference ranges are not reported, since discordance with absolute values may lead to misinterpretation of CBC data. Current Interpretive Data was last revised on 2017. Testing performed by: [facility], [address] [place] [address]., [id number] Blood 08/18/2024 12:3 4 PM CDT 08/18/2024 4:38 PM CDT Leyda Aguilar GAS SINGER LAB BLOOD ORDERABLES Final Result [facility] [place] [address] * (ABNORMAL) Comprehensive metabolic panel, without glucose (Outreach) (08/18/2024 12:34 PM CDT) Sodium 133(L) 135 - 145 mmol/L [facility] Comment:Testing performed by : [facility], [address] [facility], [address] Potassium, pl 3.9 3.3 - 4.9 mmol/L [facility] Comment:Testing performed by : [facility], [address] [place] [address], [id number] Chloride 96(L) 97 - 110 mmol/L [facility] Comment:Testing performed by : [facility], [address] [place] [address], [address] CO2 24 22 - 32 mmol/L [facility] Comment:Testing performed by : [facility], [address] [place] [address], [address] Anion gap 13 2 - 15 mmol/L [facility] Comment:Testing performed by : [facility], [address] [place] [address], [id number] BUN 22 6 - 25 mg/dL [facility] Comment:Testing performed by : [facility], [address] [place] [address], [address] Creatinine 0.83 0.80 - 1.30 mg/dL [facility] Comment:Testing performed by : [facility], [address] [place] [address], [address] Calcium 9.3 8.5 - 10.3 mg/dL [facility] Comment:Testing performed by : [facility], [address] [place] [address] Protein, pl 7.8 6.5 - 8.5 g/dL [facility] Comment:Testing performed by : [facility], [address] [facility], [address] Albumin 3.9 3.5 - 5.0 g/dL [facility] Comment:Testing performed by : [facility], [address] [place] [address] Bilirubin, total 0.6 0.1 - 1.2 mg/dL [facility] Comment:Testing performed by : [facility], [address] [facility], [address] Alk phos 118 40 - 130 Units/L [facility] Comment:Testing performed by : [facility], [address] [place] [address], [address] AST 34 10 - 50 Units/L [facility] Comment:Testing performed by : [facility], [address] [place] [address], [id number] ALT 20 7 - 55 Units/L [facility] Comment:Testing performed by : [facility], [address] [facility], [address] Blood 08/18/2024 12:3 4 PM CDT 08/18/2024 4:38 PM CDT Leyda Aguilar GAS SINGER LAB BLOOD ORDERABLES Final Result [facility] [place] [address] * (ABNORMAL) CBC with auto differential (08/18/2024 12:34 PM CDT) [facility] WBC 8.64 3.80 - 9.90 K/cumm [facility] Comment:Testing performed by : [facility], [address] [facility], [address] Hgb 14.1 13.0 - 17.5 g/dL [facility] Comment:Testing performed by : [facility], [address] [facility], [address] Hct 44.4 38.9 - 50.3 % [facility] Comment:Testing performed by : [facility], [address] [facility], [address] Plt 243 150 - 400 K/cumm [facility] Comment:Testing performed by : [facility], [address] [facility], [address] MPV 11.3 9.1 - 12.3 fL [facility] Comment:Testing performed by : [facility], [address] [facility], [address] RBC 5.12 4.30 - 5.80 M/cumm [facility] Comment:Testing performed by : [facility], [address] [facility], [address] MCV 86.7 81.3 - 96.4 fL [facility] Comment:Testing performed by : [facility], [address] [facility], [address] MCH 27.5 27.1 - 33.3 pg [facility] Comment:Testing performed by : [facility], [address] [facility], [address] MCHC 31.8(L) 32.3 - 35.7 g/dL [facility] Comment:Testing performed by : [facility], [address] [facility], [address] RDW CV 16.6(H) 11.1 - 14.9 % [facility] Comment:Testing performed by : [facility], [address] [facility], [address] RDW SD 51.8(H) 35.7 - 48.1 fL [facility] Comment:Testing performed by : [facility], [address] [facility], [address] NRBC abs 0.00 0.00 - 0.01 K/cumm [facility] Comment:Testing performed by : [facility], [address] [place] [address]., [address] Blood 08/18/2024 12:3 4 PM CDT 08/18/2024 4:[address] [facility] LAB BLOOD ORDERABLES Final Result Performing Organization Address [facility] de Phone Number [facility] [place] [address] * (ABNORMAL) Vitamin D 25 hydroxy (08/18/2024 12:34 PM CDT) Pathologist [facility] [place] Vitamin D 25-OH 25(L) 30 - 80 ng/mL [facility] Comment:Testing performed by : [facility], [address] [place] [address], [address] Blood 08/18/2024 12:3 4 PM CDT 08/18/2024 4:[address] [facility] LAB BLOOD ORDERABLES Final Result Performing Organization Address [facility] de Phone Number [facility] [place] [address] * (ABNORMAL) Protime-INR (08/18/2024 12:34 PM CDT) PT 21.7(H) 9.7 - 13.0 sec [facility] Comment:Testing performed by : [facility], [address] [place] [address]., [address] INR 1.98(H) 0.90 - 1.20 [facility] Comment: Interpretive data Oral anticoagulant therapeutic ranges: Venous thromboembolism prophylaxis or treatment: 2.0-3.0 CARDIOLOGY Standard range: 2.0-3.0 High-intensity range: 2.5-3.5 Refer to indication-specific guidelines for appropriate target ranges for prosthetic heart valve replacement. Current interpretive data was last revised on 2019. Testing performed by: [facility], [address] [place] [address]., [address] Blood 08/18/2024 12:3 4 PM CDT 08/18/2024 4:38 PM CDT us Leyda Itzel Aguilar GAS SINGER LAB BLOOD ORDERABLES Final Result Performing Organization Address [facility] Co de Phone Number [facility] [place] [address] * Phosphorus (08/18/2024 12:34 PM CDT) Phosphorus, pl 3.2 2.3 - 4.5 mg/dL [facility] Comment:Testing performed by : [facility], [address] [place] [address]., [address] Blood 08/18/2024 12:3 4 PM CDT 08/18/2024 4:38 PM CDT Leyda Itzel Aguilar GAS SINGER LAB BLOOD ORDERABLES Final Result Performing Organization Address [facility] de Phone Number [facility] [place] [address] * Magnesium (08/18/2024 12:34 PM CDT) Magnesium 2.1 1.4 - 2.5 mg/dL [facility] Comment:Testing performed by : [facility], [address] [place] [address]., [address] Blood 08/18/2024 12:3 4 PM CDT 08/18/2024 4:38 PM CDT Leyda Itzel Aguilar GAS SINGER LAB BLOOD ORDERABLES Final Result [facility] [place] [address] * (ABNORMAL) POCT glucose (08/15/2024 11:20 AM CDT) Glucose, POC 231(H) 70 - 199 mg/dL Blood 08/15/2024 11:2 0 AM CDT 08/15/2024 11:20 AM CDT us [place] Light MD PhD LAB POCT ORDERABLE S - DEVICE Final Result Performing Organization Address [facility] Co de Phone Number [facility] [place] [address] * (ABNORMAL) POCT glucose (08/15/2024 7:36 AM CDT) Glucose, POC 202(H) 70 - 199 mg/dL Comment:Glu2: RN/MD Notified Glucose comment 1 Glu2: RN/MD Notified [facility] Blood 08/15/2024 7:36 AM CDT 08/15/2024 7:36 AM CDT us [place] Light MD PhD LAB POCT ORDERABLE S - DEVICE Final Result Performing Organization Address [facility] Co de Phone Number [facility] [place] [address] * eGFR (08/15/2024 3:58 AM CDT) eGFR 89 >=60 mL/min/1. 73 m2 Comment: Interpretive Data Reference Interval Normal >/= 90 mL/min/1.73m2 Mildly decreased* 60 - 89 mL/min/1.73m2 Mildly to moderately decreased 45 - 59 mL/min/1.73m2 Moderately to severely decreased 30 - 44 mL/min/1.73m2 Severely decreased 15 - 29 mL/min/1.73m2 Kidney Failure < 15 mL/min/1.73m2 *Relative to young adult level Estimated glomerular filtration rate is determined by the 2020 CKD-EPI equation recommended by the National Kidney Foundation (A Unifying Approach to GFR Estimation: Recommendations of the NKF-ASK Task Force on Reassessing the Inclusion of Race in Diagnosing Kidney Disease, JASN 2020). The CKD-EPI equation should not be used for patients with unstable renal function and has not been validated in children and those over 70. Current interpretive data was last reviewed 2021. Blood 08/15/2024 3:58 AM CDT 08/15/2024 5:38 AM CDT Angelina Vo LAB BLOOD ORDERABLES Final Result Performing Organization Address [facility] de Phone Number [facility] [place] [address] * (ABNORMAL) Protime-INR (08/15/2024 3:58 AM CDT) PT 20.7(H) 9.7 - 13.0 sec INR 1.89(H) 0.90 - 1.20 [facility] Comment: Interpretive data Oral anticoagulant therapeutic ranges: Venous thromboembolism prophylaxis or treatment: 2.0-3.0 CARDIOLOGY Standard range: 2.0-3.0 High-intensity range: 2.5-3.5 Refer to indication-specific guidelines for appropriate target ranges for prosthetic heart valve replacement. Current interpretive data was last revised on 2019. Blood 08/15/2024 3:58 AM CDT 08/15/2024 6:03 AM CDT Angelina Vo NP LAB BLOOD ORDERABLES Final Result Performing Organization Address [facility] de Phone Number [facility] [employer] [place], [place] [id number] * (ABNORMAL) CBC without differential (08/15/2024 3:58 AM CDT) WBC 7.7 3.8 - 9.9 K/cumm Hgb 12.9(L) 13.0 - 17.5 g/dL [facility] Hct 40.2 38.9 - 50.3 % [facility] Plt 217 150 - 400 K/cumm [facility] MPV 10.9 9.1 - 12.3 fL [facility] RBC 4.71 4.30 - 5.80 M/cumm [facility] MCV 85.4 81.3 - 96.4 fL [facility] MCH 27.4 27.1 - 33.3 pg [facility] MCHC 32.1(L) 32.3 - 35.7 g/dL [facility] RDW CV 16.3(H) 11.1 - 14.9 % [facility] RDW SD 50.0(H) 35.7 - 48.1 fL [facility] NRBC abs 0.00 0.00 - 0.01 K/cumm [facility] Blood 08/15/2024 3:58 AM CDT 08/15/2024 5:38 AM CDT Angelina Vo NP LAB BLOOD ORDERABLES Final Result [facility] [place] [address] * (ABNORMAL) Basic metabolic panel (08/15/2024 3:58 AM CDT) Pathologist [facility] [place] Sodium 136 135 - 145 mmol/L Potassium, pl 4.2 3.3 - 4.9 mmol/L [facility] Chloride 100 97 - 110 mmol/L [facility] CO2 28 22 - 32 mmol/L [facility] Anion gap 8 2 - 15 mmol/L [facility] BUN 22 6 - 25 mg/dL [facility] Creatinine 0.79(L) 0.80 - 1.30 mg/dL [facility] Glucose 208(H) 70 - 199 mg/dL [facility] Comment: Interpretive Data Fasting glucose >/= 126 mg/dl is diagnostic for diabetes. Fasting is defined as no caloric intake for at least 8 hours. Fasting glucose between 100 mg/dl to 125 mg/dl is diagnostic of prediabetes. In a patient with classic symptoms of hyperglycemia or hyperglycemic crisis, a random glucose >/= 200 mg/dl is diagnostic for diabetes. In the absence of unequivocal hyperglycemia, results should be confirmed by repeat testing. The classification and Diagnosis of Diabetes Diabetes Care 2021; 46: S19-S40. Current interpretive data was last revised 2022. Calcium 8.8 8.5 - 10.3 mg/dL [facility] Blood 08/15/2024 3:58 AM CDT 08/15/2024 5:38 AM CDT us Angelina Vo GAS SINGER LAB BLOOD ORDERABLES Final Result Performing Organization Address [facility] Co de Phone Number [facility] [place] [address] * (ABNORMAL) POCT glucose (08/14/2024 7:31 PM CDT) Glucose, POC 236(H) 70 - 199 mg/dL Comment:Glu2: RN/MD Notified Glucose comment 1 Glu2: RN/MD Notified [facility] Blood 08/14/2024 7:31 PM CDT 08/14/2024 7:31 PM CDT us [place] Light MD PhD LAB POCT ORDERABLE S - DEVICE Final Result [facility] [place] [address] * POCT glucose (08/14/2024 4:37 PM CDT) Glucose, POC 148 70 - 199 mg/dL Blood 08/14/2024 4:37 PM CDT 08/14/2024 4:37 PM CDT Thompson Light MD PhD LAB POCT ORDERABLE S - DEVICE Final Result Performing Organization Address [facility] Co de Phone Number [facility] [place] [address] * POCT glucose (08/14/2024 11:58 AM CDT) Glucose, POC 197 70 - 199 mg/dL Blood 08/14/2024 11:5 8 AM CDT 08/14/2024 11:58 AM CDT us Thompson Light MD PhD LAB POCT ORDERABLE S - DEVICE Final Result Performing Organization Address [facility] de Phone Number [facility] [place] [address] * POCT glucose (08/14/2024 7:38 AM CDT) Pathologist [facility] [place] Glucose, POC 171 70 - 199 mg/dL Blood 08/14/2024 7:38 AM CDT 08/14/2024 7:38 AM CDT us [place] Light MD PhD LAB POCT ORDERABLE S - DEVICE Final Result Performing Organization Address [facility] Co de Phone Number [facility] [place] [address] * eGFR (08/14/2024 3:55 AM CDT) eGFR >90 >=60 mL/min/1. 73 m2 Comment: Interpretive Data Reference Interval Normal >/= 90 mL/min/1.73m2 Mildly decreased* 60 - 89 mL/min/1.73m2 Mildly to moderately decreased 45 - 59 mL/min/1.73m2 Moderately to severely decreased 30 - 44 mL/min/1.73m2 Severely decreased 15 - 29 mL/min/1.73m2 Kidney Failure < 15 mL/min/1.73m2 *Relative to young adult level Estimated glomerular filtration rate is determined by the 2020 CKD-EPI equation recommended by the National Kidney Foundation (A Unifying Approach to GFR Estimation: Recommendations of the NKF-ASK Task Force on Reassessing the Inclusion of Race in Diagnosing Kidney Disease, JASN 2020). The CKD-EPI equation should not be used for patients with unstable renal function and has not been validated in children and those over 70. Current interpretive data was last reviewed 2021. Blood 08/14/2024 3:55 AM CDT 08/14/2024 4:23 AM CDT Angelina Vo GAS SINGER LAB BLOOD ORDERABLES Final Result Performing Organization Address [facility] Co de Phone Number [facility] [place] [address] * (ABNORMAL) Protime-INR (08/14/2024 3:55 AM CDT) PT 24.4(H) 9.7 - 13.0 sec INR 2.22(H) 0.90 - 1.20 [facility] Comment: Interpretive data Oral anticoagulant therapeutic ranges: Venous thromboembolism prophylaxis or treatment: 2.0-3.0 CARDIOLOGY Standard range: 2.0-3.0 High-intensity range: 2.5-3.5 Refer to indication-specific guidelines for appropriate target ranges for prosthetic heart valve replacement. Current interpretive data was last revised on 2019. Blood 08/14/2024 3:55 AM CDT 08/14/2024 4:25 AM CDT Angelina Vo NP LAB BLOOD ORDERABLES Final Result Performing Organization Address City/[facility]/ZIP Co de Phone Number [facility] [place] [address] * (ABNORMAL) CBC without differential (08/14/2024 3:55 AM CDT) WBC 7.9 3.8 - 9.9 K/cumm Hgb 12.7(L) 13.0 - 17.5 g/dL [facility] Hct 39.3 38.9 - 50.3 % [facility] Plt 216 150 - 400 K/cumm [facility] MPV 10.8 9.1 - 12.3 fL [facility] RBC 4.61 4.30 - 5.80 M/cumm [facility] MCV 85.2 81.3 - 96.4 fL [facility] MCH 27.5 27.1 - 33.3 pg [facility] MCHC 32.3 32.3 - 35.7 g/dL [facility] RDW CV 16.2(H) 11.1 - 14.9 % [facility] RDW SD 49.2(H) 35.7 - 48.1 fL [facility] NRBC abs 0.00 0.00 - 0.01 K/cumm [facility] Blood 08/14/2024 3:55 AM CDT 08/14/2024 4:23 AM CDT Angelina Vo GAS SINGER LAB BLOOD ORDERABLES Final Result [facility] [place] [address] * (ABNORMAL) Basic metabolic panel (08/14/2024 3:55 AM CDT) Sodium 137 135 - 145 mmol/L Potassium, pl 4.0 3.3 - 4.9 mmol/L [facility] Chloride 101 97 - 110 mmol/L [facility] CO2 28 22 - 32 mmol/L [facility] Anion gap 8 2 - 15 mmol/L [facility] BUN 22 6 - 25 mg/dL [facility] Creatinine 0.68(L) 0.80 - 1.30 mg/dL [facility] Glucose 176 70 - 199 mg/dL [facility] Comment: Interpretive Data Fasting glucose >/= 126 mg/dl is diagnostic for diabetes. Fasting is defined as no caloric intake for at least 8 hours. Fasting glucose between 100 mg/dl to 125 mg/dl is diagnostic of prediabetes. In a patient with classic symptoms of hyperglycemia or hyperglycemic crisis, a random glucose >/= 200 mg/dl is diagnostic for diabetes. In the absence of unequivocal hyperglycemia, results should be confirmed by repeat testing. The classification and Diagnosis of Diabetes Diabetes Care 2021; 46: S19-S40. Current interpretive data was last revised 2022. Calcium 8.9 8.5 - 10.3 mg/dL [facility] Blood 08/14/2024 3:55 AM CDT 08/14/2024 4:23 AM CDT us Angelina Vo GAS SINGER LAB BLOOD ORDERABLES Final Result Performing Organization Address City/[facility]/ZIP Co de Phone Number [facility] [place] [place] [address] * POCT glucose (08/13/2024 7:53 PM CDT) Glucose, POC 154 70 - 199 mg/dL Blood 08/13/2024 7:53 PM CDT 08/13/2024 7:53 PM CDT us Thompson Light MD PhD LAB POCT ORDERABLE S - DEVICE Final Result Performing Organization Address City/[facility] Co de Phone Number [facility] [place] [address] * (ABNORMAL) POCT glucose (08/13/2024 4:48 PM CDT) Glucose, POC 209(H) 70 - 199 mg/dL Blood 08/13/2024 4:48 PM CDT 08/13/2024 4:48 PM CDT us Thompson Light MD PhD LAB POCT ORDERABLE S - DEVICE Final Result Performing Organization Address City/[facility] Co de Phone Number [facility] [place] [address] * (ABNORMAL) POCT glucose (08/13/2024 11:26 AM CDT) Glucose, POC 224(H) 70 - 199 mg/dL Blood 08/13/2024 11:2 6 AM CDT 08/13/2024 11:26 AM CDT Thompson Light MD PhD LAB POCT ORDERABLE S - DEVICE Final Result Performing Organization Address City/[facility] Co de Phone Number [facility] [place] [address] * POCT glucose (08/13/2024 9:26 AM CDT) Glucose, POC 188 70 - 199 mg/dL Blood 08/13/2024 9:26 AM CDT 08/13/2024 9:26 AM CDT us Thompson Light MD PhD LAB POCT ORDERABLE S - DEVICE Final Result Performing Organization Address City/[facility] de Phone Number [facility] [place] [address] * eGFR (08/13/2024 3:54 AM CDT) eGFR >90 >=60 mL/min/1. 73 m2 Comment: Interpretive Data Reference Interval Normal >/= 90 mL/min/1.73m2 Mildly decreased* 60 - 89 mL/min/1.73m2 Mildly to moderately decreased 45 - 59 mL/min/1.73m2 Moderately to severely decreased 30 - 44 mL/min/1.73m2 Severely decreased 15 - 29 mL/min/1.73m2 Kidney Failure < 15 mL/min/1.73m2 *Relative to young adult level Estimated glomerular filtration rate is determined by the 2020 CKD-EPI equation recommended by the National Kidney Foundation (A Unifying Approach to GFR Estimation: Recommendations of the NKF-ASK Task Force on Reassessing the Inclusion of Race in Diagnosing Kidney Disease, JASN 2020). The CKD-EPI equation should not be used for patients with unstable renal function and has not been validated in children and those over 70. Current interpretive data was last reviewed 2021. Blood 08/13/2024 3:54 AM CDT 08/13/2024 4:25 AM CDT Angelina Vo NP LAB BLOOD ORDERABLES Final Result Performing Organization Address [facility] de Phone Number [facility] [place] [address] * (ABNORMAL) Protime-INR (08/13/2024 3:54 AM CDT) Pathologist [facility] [place] PT 27.5(H) 9.7 - 13.0 sec INR 2.50(H) 0.90 - 1.20 [facility] Comment: Interpretive data Oral anticoagulant therapeutic ranges: Venous thromboembolism prophylaxis or treatment: 2.0-3.0 CARDIOLOGY Standard range: 2.0-3.0 High-intensity range: 2.5-3.5 Refer to indication-specific guidelines for appropriate target ranges for prosthetic heart valve replacement. Current interpretive data was last revised on 2019. Blood 08/13/2024 3:54 AM CDT 08/13/2024 4:30 AM CDT Angelina Vo NP LAB BLOOD ORDERABLES Final Result Performing Organization Address [facility] de Phone Number [facility] [place] [address] * (ABNORMAL) CBC without differential (08/13/2024 3:54 AM CDT) WBC 8.2 3.8 - 9.9 K/cumm Hgb 13.0 13.0 - 17.5 g/dL [facility] Hct 40.4 38.9 - 50.3 % [facility] Plt 215 150 - 400 K/cumm [facility] MPV 10.8 9.1 - 12.3 fL [facility] RBC 4.72 4.30 - 5.80 M/cumm [facility] MCV 85.6 81.3 - 96.4 fL [facility] MCH 27.5 27.1 - 33.3 pg [facility] MCHC 32.2(L) 32.3 - 35.7 g/dL [facility] RDW CV 16.0(H) 11.1 - 14.9 % [facility] RDW SD 49.4(H) 35.7 - 48.1 fL [facility] NRBC abs 0.00 0.00 - 0.01 K/cumm [facility] Blood 08/13/2024 3:54 AM CDT 08/13/2024 4:25 AM CDT Angelina Vo NP LAB BLOOD ORDERABLES Final Result [facility] [place] [address] * (ABNORMAL) Basic metabolic panel (08/13/2024 3:54 AM CDT) Sodium 137 135 - 145 mmol/L Potassium, pl 4.1 3.3 - 4.9 mmol/L [facility] Chloride 100 97 - 110 mmol/L [facility] CO2 29 22 - 32 mmol/L [facility] Anion gap 8 2 - 15 mmol/L [facility] BUN 25 6 - 25 mg/dL [facility] Creatinine 0.71(L) 0.80 - 1.30 mg/dL [facility] Glucose 160 70 - 199 mg/dL [facility] Comment: Interpretive Data Fasting glucose >/= 126 mg/dl is diagnostic for diabetes. Fasting is defined as no caloric intake for at least 8 hours. Fasting glucose between 100 mg/dl to 125 mg/dl is diagnostic of prediabetes. In a patient with classic symptoms of hyperglycemia or hyperglycemic crisis, a random glucose >/= 200 mg/dl is diagnostic for diabetes. In the absence of unequivocal hyperglycemia, results should be confirmed by repeat testing. The classification and Diagnosis of Diabetes Diabetes Care 202; 46: S19-S40. Current interpretive data was last revised 2022. Calcium 8.9 8.5 - 10.3 mg/dL [facility] Blood 08/13/2024 3:54 AM CDT 08/13/2024 4:25 AM CDT us Angelina Vo GAS SINGER LAB BLOOD ORDERABLES Final Result Performing Organization Address [facility] Co de Phone Number [facility] [place] [address] * (ABNORMAL) POCT glucose (08/12/2024 8:07 PM CDT) Glucose, POC 239(H) 70 - 199 mg/dL Blood 08/12/2024 8:07 PM CDT 08/12/2024 8:07 PM CDT us Thompson Light MD PhD LAB POCT ORDERABLE S - DEVICE Final Result Performing Organization Address [facility] de Phone Number [facility] [place] [address] * POCT glucose (08/12/2024 4:51 PM CDT) Glucose, POC 197 70 - 199 mg/dL Blood 08/12/2024 4:51 PM CDT 08/12/2024 4:51 PM CDT us Thompson Light MD PhD LAB POCT ORDERABLE S - DEVICE Final Result Performing Organization Address [facility] de Phone Number [facility] [place] [address] * (ABNORMAL) POCT glucose (08/12/2024 11:20 AM CDT) Glucose, POC 281(H) 70 - 199 mg/dL Blood 08/12/2024 11:2 0 AM CDT 08/12/2024 11:20 AM CDT Thompson Light MD PhD LAB POCT ORDERABLE S - DEVICE Final Result Performing Organization Address City/State/[facility] Co de Phone Number [facility] [place] [address] * POCT glucose (08/12/2024 7:36 AM CDT) Glucose, POC 184 70 - 199 mg/dL Blood 08/12/2024 7:36 AM CDT 08/12/2024 7:36 AM CDT us Thompson Light MD PhD LAB POCT ORDERABLE S - DEVICE Final Result Performing Organization Address City/[facility] Co de Phone Number [facility] [place] [address] * eGFR (08/12/2024 4:31 AM CDT) eGFR 90 >=60 mL/min/1. 73 m2 Comment: Interpretive Data Reference Interval Normal >/= 90 mL/min/1.73m2 Mildly decreased* 60 - 89 mL/min/1.73m2 Mildly to moderately decreased 45 - 59 mL/min/1.73m2 Moderately to severely decreased 30 - 44 mL/min/1.73m2 Severely decreased 15 - 29 mL/min/1.73m2 Kidney Failure < 15 mL/min/1.73m2 *Relative to young adult level Estimated glomerular filtration rate is determined by the 2020 CKD-EPI equation recommended by the National Kidney Foundation (A Unifying Approach to GFR Estimation: Recommendations of the NKF-ASK Task Force on Reassessing the Inclusion of Race in Diagnosing Kidney Disease, JASN 2020). The CKD-EPI equation should not be used for patients with unstable renal function and has not been validated in children and those over 70. Current interpretive data was last reviewed 2021. Blood 08/12/2024 4:31 AM CDT 08/12/2024 6:01 AM CDT Angelina Vo NP LAB BLOOD ORDERABLES Final Result Performing Organization Address [facility] de Phone Number [facility] [place] [address] * (ABNORMAL) Protime-INR (08/12/2024 4:31 AM CDT) [facility] PT 23.3(H) 9.7 - 13.0 sec INR 2.12(H) 0.90 - 1.20 [facility] Comment: Interpretive data Oral anticoagulant therapeutic ranges: Venous thromboembolism prophylaxis or treatment: 2.0-3.0 CARDIOLOGY Standard range: 2.0-3.0 High-intensity range: 2.5-3.5 Refer to indication-specific guidelines for appropriate target ranges for prosthetic heart valve replacement. Current interpretive data was last revised on 2019. Blood 08/12/2024 4:31 AM CDT 08/12/2024 6:08 AM CDT Angelina Vo NP LAB BLOOD ORDERABLES Final Result Performing Organization Address [facility] de Phone Number [facility] [place] [address] * (ABNORMAL) CBC without differential (08/12/2024 4:31 AM CDT) [facility] WBC 6.5 3.8 - 9.9 K/cumm Hgb 13.1 13.0 - 17.5 g/dL [facility] Hct 40.6 38.9 - 50.3 % [facility] Plt 221 150 - 400 K/cumm [facility] MPV 11.0 9.1 - 12.3 fL [facility] RBC 4.76 4.30 - 5.80 M/cumm [facility] MCV 85.3 81.3 - 96.4 fL [facility] MCH 27.5 27.1 - 33.3 pg [facility] MCHC 32.3 32.3 - 35.7 g/dL [facility] RDW CV 16.2(H) 11.1 - 14.9 % [facility] RDW SD 49.7(H) 35.7 - 48.1 fL [facility] NRBC abs 0.00 0.00 - 0.01 K/cumm [facility] Blood 08/12/2024 4:31 AM CDT 08/12/2024 6:02 AM CDT us Angelina Vo NP LAB BLOOD ORDERABLES Final Result [facility] [place] [address] * (ABNORMAL) Basic metabolic panel (08/12/2024 4:31 AM CDT) Sodium 136 135 - 145 mmol/L Potassium, pl 4.1 3.3 - 4.9 mmol/L [facility] Chloride 99 97 - 110 mmol/L [facility] CO2 28 22 - 32 mmol/L [facility] Anion gap 9 2 - 15 mmol/L [facility] BUN 24 6 - 25 mg/dL [facility] Creatinine 0.76(L) 0.80 - 1.30 mg/dL [facility] Glucose 204(H) 70 - 199 mg/dL [facility] Comment: Interpretive Data Fasting glucose >/= 126 mg/dl is diagnostic for diabetes. Fasting is defined as no caloric intake for at least 8 hours. Fasting glucose between 100 mg/dl to 125 mg/dl is diagnostic of prediabetes. In a patient with classic symptoms of hyperglycemia or hyperglycemic crisis, a random glucose >/= 200 mg/dl is diagnostic for diabetes. In the absence of unequivocal hyperglycemia, results should be confirmed by repeat testing. The classification and Diagnosis of Diabetes Diabetes Care 2021; 46: S19-S40. Current interpretive data was last revised 2022. Calcium 9.2 8.5 - 10.3 mg/dL [facility] Blood 08/12/2024 4:31 AM CDT 08/12/2024 6:01 AM CDT us Angelina Vo GAS SINGER LAB BLOOD ORDERABLES Final Result Performing Organization Address [facility] Co de Phone Number [facility] [place] [address] * (ABNORMAL) POCT glucose (08/11/2024 8:22 PM CDT) Glucose, POC 294(H) 70 - 199 mg/dL Blood 08/11/2024 8:22 PM CDT 08/11/2024 8:22 PM CDT us Thompson Light MD PhD LAB POCT ORDERABLE S - DEVICE Final Result Performing Organization Address [facility] [place] [address] * (ABNORMAL) POCT glucose (08/11/2024 4:58 PM CDT) Glucose, POC 268(H) 70 - 199 mg/dL Comment:Glu2: RN/MD Notified Glucose comment 1 Glu2: RN/MD Notified [facility] Blood 08/11/2024 4:58 PM CDT 08/11/2024 4:58 PM CDT us Thompson Light MD PhD LAB POCT ORDERABLE S - DEVICE Final Result Performing Organization Address [facility] Co de Phone Number [facility] [place] [address] * (ABNORMAL) POCT glucose (08/11/2024 11:29 AM CDT) Glucose, POC 208(H) 70 - 199 mg/dL Blood 08/11/2024 11:2 9 AM CDT 08/11/2024 11:29 AM CDT us Thompson Light MD PhD LAB POCT ORDERABLE S - DEVICE Final Result Performing Organization Address [facility] de Phone Number [facility] [place] [address] * POCT glucose (08/11/2024 7:31 AM CDT) Glucose, POC 189 70 - 199 mg/dL Blood 08/11/2024 7:31 AM CDT 08/11/2024 7:31 AM CDT us Thompson Light MD PhD LAB POCT ORDERABLE S - DEVICE Final Result Performing Organization Address [facility] de Phone Number [facility] [place] [address] * (ABNORMAL) POCT glucose (08/11/2024 4:23 AM CDT) Glucose, POC 203(H) 70 - 199 mg/dL Blood 08/11/2024 4:23 AM CDT 08/11/2024 4:23 AM CDT us Thompson Light MD PhD LAB POCT ORDERABLE S - DEVICE Final Result Performing Organization Address [facility] de Phone Number [facility] [place] [address] * eGFR (08/11/2024 3:35 AM CDT) eGFR >90 >=60 mL/min/1. 73 m2 Comment: Interpretive Data Reference Interval Normal >/= 90 mL/min/1.73m2 Mildly decreased* 60 - 89 mL/min/1.73m2 Mildly to moderately decreased 45 - 59 mL/min/1.73m2 Moderately to severely decreased 30 - 44 mL/min/1.73m2 Severely decreased 15 - 29 mL/min/1.73m2 Kidney Failure < 15 mL/min/1.73m2 *Relative to young adult level Estimated glomerular filtration rate is determined by the 2020 CKD-EPI equation recommended by the National Kidney Foundation (A Unifying Approach to GFR Estimation: Recommendations of the NKF-ASK Task Force on Reassessing the Inclusion of Race in Diagnosing Kidney Disease, JASN 2020). The CKD-EPI equation should not be used for patients with unstable renal function and has not been validated in children and those over 70. Current interpretive data was last reviewed 2021. Blood 08/11/2024 3:35 AM CDT 08/11/2024 4:25 AM CDT Angelina Vo NP LAB BLOOD ORDERABLES Final Result Performing Organization Address [facility] de Phone Number [facility] [place] [address] * (ABNORMAL) Protime-INR (08/11/2024 3:35 AM CDT) PT 23.2(H) 9.7 - 13.0 sec INR 2.12(H) 0.90 - 1.20 [facility] Comment: Interpretive data Oral anticoagulant therapeutic ranges: Venous thromboembolism prophylaxis or treatment: 2.0-3.0 CARDIOLOGY Standard range: 2.0-3.0 High-intensity range: 2.5-3.5 Refer to indication-specific guidelines for appropriate target ranges for prosthetic heart valve replacement. Current interpretive data was last revised on 2019. Blood 08/11/2024 3:35 AM CDT 08/11/2024 4:28 AM CDT Angelina Vo NP LAB BLOOD ORDERABLES Final Result Performing Organization Address [facility] Phone Number [facility] [place] [address] * (ABNORMAL) CBC without differential (08/11/2024 3:35 AM CDT) WBC 8.6 3.8 - 9.9 K/cumm Hgb 13.0 13.0 - 17.5 g/dL [facility] Hct 41.3 38.9 - 50.3 % [facility] Plt 220 150 - 400 K/cumm [facility] MPV 10.6 9.1 - 12.3 fL [facility] RBC 4.72 4.30 - 5.80 M/cumm [facility] MCV 87.5 81.3 - 96.4 fL [facility] MCH 27.5 27.1 - 33.3 pg [facility] MCHC 31.5(L) 32.3 - 35.7 g/dL [facility] RDW CV 16.0(H) 11.1 - 14.9 % [facility] RDW SD 49.8(H) 35.7 - 48.1 fL [facility] NRBC abs 0.00 0.00 - 0.01 K/cumm [facility] Blood 08/11/2024 3:35 AM CDT 08/11/2024 4:25 AM CDT us Angelina Vo NP LAB BLOOD ORDERABLES Final Result [facility] [place] [address] * (ABNORMAL) Basic metabolic panel (08/11/2024 3:35 AM CDT) [facility] Sodium 138 135 - 145 mmol/L Potassium, pl 4.2 3.3 - 4.9 mmol/L [facility] Chloride 101 97 - 110 mmol/L [facility] CO2 28 22 - 32 mmol/L [facility] Anion gap 9 2 - 15 mmol/L [facility] BUN 23 6 - 25 mg/dL [facility] Creatinine 0.74(L) 0.80 - 1.30 mg/dL [facility] Glucose 200(H) 70 - 199 mg/dL [facility] Comment: Interpretive Data Fasting glucose >/= 126 mg/dl is diagnostic for diabetes. Fasting is defined as no caloric intake for at least 8 hours. Fasting glucose between 100 mg/dl to 125 mg/dl is diagnostic of prediabetes. In a patient with classic symptoms of hyperglycemia or hyperglycemic crisis, a random glucose >/= 200 mg/dl is diagnostic for diabetes. In the absence of unequivocal hyperglycemia, results should be confirmed by repeat testing. The classification and Diagnosis of Diabetes Diabetes Care 2021; 46: S19-S40. Current interpretive data was last revised 2022. Calcium 9.5 8.5 - 10.3 mg/dL [facility] Blood 08/11/2024 3:35 AM CDT 08/11/2024 4:25 AM CDT us Angelina Vo GAS SINGER LAB BLOOD ORDERABLES Final Result Performing Organization Address [facility] Co de Phone Number [facility] [place] [address] * (ABNORMAL) POCT glucose (08/10/2024 10:53 PM CDT) Glucose, POC 243(H) 70 - 199 mg/dL Blood 08/10/2024 10:5 3 PM CDT 08/10/2024 10:53 PM CDT us Thompson Light MD PhD LAB POCT ORDERABLE S - DEVICE Final Result Performing Organization Address [facility] Phone Number [facility] [place] [address] * (ABNORMAL) POCT glucose (08/10/2024 7:47 PM CDT) Glucose, POC 252(H) 70 - 199 mg/dL Blood 08/10/2024 7:47 PM CDT 08/10/2024 7:47 PM CDT us Thompson Light MD PhD LAB POCT ORDERABLE S - DEVICE Final Result Performing Organization Address [facility]/ZIP Co de Phone Number [facility] [place] [address] * (ABNORMAL) POCT glucose (08/10/2024 4:45 PM CDT) Glucose, POC 253(H) 70 - 199 mg/dL Blood 08/10/2024 4:45 PM CDT 08/10/2024 4:45 PM CDT us Thompson Light MD PhD LAB POCT ORDERABLE S - DEVICE Final Result Performing Organization Address [facility] [place] [address] * (ABNORMAL) POCT glucose (08/10/2024 11:11 AM CDT) Glucose, POC 248(H) 70 - 199 mg/dL Blood 08/10/2024 11:1 1 AM CDT 08/10/2024 11:11 AM CDT us Thompson Light MD PhD LAB POCT ORDERABLE S - DEVICE Final Result Performing Organization Address [facility] Co de Phone Number [facility] [place] [address] * POCT glucose (08/10/2024 7:29 AM CDT) Glucose, POC 174 70 - 199 mg/dL Blood 08/10/2024 7:29 AM CDT 08/10/2024 7:29 AM CDT us Thompson Light MD PhD LAB POCT ORDERABLE S - DEVICE Final Result Performing Organization Address [facility] Co de Phone Number [facility] [place] [address] * eGFR (08/10/2024 3:47 AM CDT) eGFR 87 >=60 mL/min/1. 73 m2 Comment: Interpretive Data Reference Interval Normal >/= 90 mL/min/1.73m2 Mildly decreased* 60 - 89 mL/min/1.73m2 Mildly to moderately decreased 45 - 59 mL/min/1.73m2 Moderately to severely decreased 30 - 44 mL/min/1.73m2 Severely decreased 15 - 29 mL/min/1.73m2 Kidney Failure < 15 mL/min/1.73m2 *Relative to young adult level Estimated glomerular filtration rate is determined by the 2020 CKD-EPI equation recommended by the National Kidney Foundation (A Unifying Approach to GFR Estimation: Recommendations of the NKF-ASK Task Force on Reassessing the Inclusion of Race in Diagnosing Kidney Disease, JASN 2020). The CKD-EPI equation should not be used for patients with unstable renal function and has not been validated in children and those over 70. Current interpretive data was last reviewed 2021. Blood 08/10/2024 3:47 AM CDT 08/10/2024 4:34 AM CDT Angelina Vo NP LAB BLOOD ORDERABLES Final Result Performing Organization Address City/State/[facility] Co de Phone [facility] [place] [address] * (ABNORMAL) Protime-INR (08/10/2024 3:47 AM CDT) PT 24.6(H) 9.7 - 13.0 sec INR 2.24(H) 0.90 - 1.20 [facility] Comment: Interpretive data Oral anticoagulant therapeutic ranges: Venous thromboembolism prophylaxis or treatment: 2.0-3.0 CARDIOLOGY Standard range: 2.0-3.0 High-intensity range: 2.5-3.5 Refer to indication-specific guidelines for appropriate target ranges for prosthetic heart valve replacement. Current interpretive data was last revised on 2019. Blood 08/10/2024 3:47 AM CDT 08/10/2024 4:34 AM CDT Angelina Vo GAS SINGER LAB BLOOD ORDERABLES Final Result Performing Organization Address [facility]/ZIP Co de Phone Number [facility] [place] [address] * (ABNORMAL) CBC without differential (08/10/2024 3:47 AM CDT) Pathologist [facility] WBC 7.9 3.8 - 9.9 K/cumm Hgb 12.8(L) 13.0 - 17.5 g/dL [facility] Hct 38.9 38.9 - 50.3 % [facility] Plt 224 150 - 400 K/cumm [facility] MPV 10.6 9.1 - 12.3 fL [facility] RBC 4.61 4.30 - 5.80 M/cumm [facility] MCV 84.4 81.3 - 96.4 fL [facility] MCH 27.8 27.1 - 33.3 pg [facility] MCHC 32.9 32.3 - 35.7 g/dL [facility] RDW CV 16.3(H) 11.1 - 14.9 % [facility] RDW SD 48.2(H) 35.7 - 48.1 fL [facility] NRBC abs 0.00 0.00 - 0.01 K/cumm [facility] Blood 08/10/2024 3:47 AM CDT 08/10/2024 4:33 AM CDT Angelina Vo GAS SINGER LAB BLOOD ORDERABLES Final Result [facility] [place] [address] * Basic metabolic panel (08/10/2024 3:47 AM CDT) Pathologist [facility] [place] Sodium 137 135 - 145 mmol/L Potassium, pl 4.1 3.3 - 4.9 mmol/L [facility] Chloride 100 97 - 110 mmol/L [facility] CO2 27 22 - 32 mmol/L [facility] Anion gap 10 2 - 15 mmol/L [facility] BUN 24 6 - 25 mg/dL [facility] Creatinine 0.86 0.80 - 1.30 mg/dL [facility] Glucose 183 70 - 199 mg/dL [facility] Comment: Interpretive Data Fasting glucose >/= 126 mg/dl is diagnostic for diabetes. Fasting is defined as no caloric intake for at least 8 hours. Fasting glucose between 100 mg/dl to 125 mg/dl is diagnostic of prediabetes. In a patient with classic symptoms of hyperglycemia or hyperglycemic crisis, a random glucose >/= 200 mg/dl is diagnostic for diabetes. In the absence of unequivocal hyperglycemia, results should be confirmed by repeat testing. The classification and Diagnosis of Diabetes Diabetes Care 202; 46: S19-S40. Current interpretive data was last revised 2022. Calcium 9.4 8.5 - 10.3 mg/dL [facility] Blood 08/10/2024 3:47 AM CDT 08/10/2024 4:34 AM CDT us Angelina Vo GAS SINGER LAB BLOOD ORDERABLES Final Result [facility] [place] [address] * POCT glucose (08/10/2024 3:46 AM CDT) [facility] Glucose, POC 189 70 - 199 mg/dL Blood 08/10/2024 3:46 AM CDT 08/10/2024 3:46 AM CDT us Thompson Light MD PhD LAB POCT ORDERABLE S - DEVICE Final Result [facility] [place] [address] * (ABNORMAL) POCT glucose (08/09/2024 11:50 PM CDT) Glucose, POC 221(H) 70 - 199 mg/dL Blood 08/09/2024 11:5 0 PM CDT 08/09/2024 11:50 PM CDT us Thompson Light MD PhD LAB POCT ORDERABLE S - DEVICE Final Result Performing Organization Address [facility] de Phone Number [facility] [place] [address] * (ABNORMAL) POCT glucose (08/09/2024 7:47 PM CDT) Glucose, POC 264(H) 70 - 199 mg/dL Blood 08/09/2024 7:47 PM CDT 08/09/2024 7:47 PM CDT us Thompson Light MD PhD LAB POCT ORDERABLE S - DEVICE Final Result Performing Organization Address [facility] de Phone Number [facility] [place] [address] * (ABNORMAL) POCT glucose (08/09/2024 5:51 PM CDT) Glucose, POC 220(H) 70 - 199 mg/dL Blood 08/09/2024 5:51 PM CDT 08/09/2024 5:51 PM CDT us Thompson Light MD PhD LAB POCT ORDERABLE S - DEVICE Final Result Performing Organization Address [facility] de Phone Number [facility] [place] [address] * POCT glucose (08/09/2024 11:56 AM CDT) Glucose, POC 193 70 - 199 mg/dL Blood 08/09/2024 11:5 6 AM CDT 08/09/2024 11:56 AM CDT us Thompson Light MD PhD LAB POCT ORDERABLE S - DEVICE Final Result Performing Organization Address [facility] Co de Phone Number [facility] [place] [address] * RPR Blood (08/09/2024 11:40 AM CDT) RPR Nonreactive Nonreactive Blood 08/09/2024 11:4 0 AM CDT 08/09/2024 12:47 PM CDT us Victor M Amado GAS SINGER LAB MICROBIOLOGY - GENERAL ORDERABLES Final Result Performing Organization Address [facility] de Phone Number [facility] [place] [address] * Folate (08/09/2024 11:40 AM CDT) Folic acid 18.3 >=5.0 ng/mL Blood 08/09/2024 11:4 0 AM CDT 08/09/2024 12:47 PM CDT us Victor M Amado GAS SINGER LAB BLOOD ORDERABLES Final Result Performing Organization Address [facility] Co de Phone Number [facility] [place] [address] * Vitamin B12 (08/09/2024 11:40 AM CDT) Vitamin B12 644 230 - 1,250 pg/mL Blood 08/09/2024 11:4 0 AM CDT 08/09/2024 12:47 PM CDT us Victor M Amado GAS SINGER LAB BLOOD ORDERABLES Final Result Performing Organization Address [facility] Co de Phone Number [facility] Department [place] [address] * POCT glucose (08/09/2024 7:50 AM CDT) Glucose, POC 179 70 - 199 mg/dL Blood 08/09/2024 7:50 AM CDT 08/09/2024 7:50 AM CDT us Thompson Light MD PhD LAB POCT ORDERABLE S - DEVICE Final Result Performing Organization Address [facility] Co de Phone Number [facility] [place] [address] * eGFR (08/09/2024 4:32 AM CDT) eGFR 89 >=60 mL/min/1. 73 m2 Comment: Interpretive Data Reference Interval Normal >/= 90 mL/min/1.73m2 Mildly decreased* 60 - 89 mL/min/1.73m2 Mildly to moderately decreased 45 - 59 mL/min/1.73m2 Moderately to severely decreased 30 - 44 mL/min/1.73m2 Severely decreased 15 - 29 mL/min/1.73m2 Kidney Failure < 15 mL/min/1.73m2 *Relative to young adult level Estimated glomerular filtration rate is determined by the 2020 CKD-EPI equation recommended by the National Kidney Foundation (A Unifying Approach to GFR Estimation: Recommendations of the NKF-ASK Task Force on Reassessing the Inclusion of Race in Diagnosing Kidney Disease, JASN 2020). The CKD-EPI equation should not be used for patients with unstable renal function and has not been validated in children and those over 70. Current interpretive data was last reviewed 2021. Blood 08/09/2024 4:32 AM CDT 08/09/2024 5:04 AM CDT us Angelina Vo GAS SINGER LAB BLOOD ORDERABLES Final Result [facility] [place] [address] * (ABNORMAL) Protime-INR (08/09/2024 4:32 AM CDT) [facility] PT 23.8(H) 9.7 - 13.0 sec INR 2.17(H) 0.90 - 1.20 [facility] Comment: Interpretive data Oral anticoagulant therapeutic ranges: Venous thromboembolism prophylaxis or treatment: 2.0-3.0 CARDIOLOGY Standard range: 2.0-3.0 High-intensity range: 2.5-3.5 Refer to indication-specific guidelines for appropriate target ranges for prosthetic heart valve replacement. Current interpretive data was last revised on 2019. Blood 08/09/2024 4:32 AM CDT 08/09/2024 5:07 AM CDT Angelina Vo NP LAB BLOOD ORDERABLES Final Result [facility] [place] [address] * (ABNORMAL) CBC without differential (08/09/2024 4:32 AM CDT) [facility] WBC 8.5 3.8 - 9.9 K/cumm Hgb 13.6 13.0 - 17.5 g/dL [facility] Hct 41.6 38.9 - 50.3 % [facility] Plt 210 150 - 400 K/cumm [facility] MPV 10.5 9.1 - 12.3 fL [facility] RBC 4.91 4.30 - 5.80 M/cumm [facility] MCV 84.7 81.3 - 96.4 fL [facility] MCH 27.7 27.1 - 33.3 pg [facility] MCHC 32.7 32.3 - 35.7 g/dL [facility] RDW CV 15.8(H) 11.1 - 14.9 % [facility] RDW SD 48.7(H) 35.7 - 48.1 fL [facility] NRBC abs 0.00 0.00 - 0.01 K/cumm [facility] Blood 08/09/2024 4:32 AM CDT 08/09/2024 5:03 AM CDT Angelina Vo LAB BLOOD ORDERABLES Final Result Performing Organization Address [facility]/ZIP Co de Phone Number [facility] [place] [address] * Basic metabolic panel (08/09/2024 4:32 AM CDT) [facility] Sodium 138 135 - 145 mmol/L Potassium, pl 4.2 3.3 - 4.9 mmol/L [facility] Chloride 102 97 - 110 mmol/L [facility] CO2 25 22 - 32 mmol/L [facility] Anion gap 11 2 - 15 mmol/L [facility] BUN 22 6 - 25 mg/dL [facility] Creatinine 0.81 0.80 - 1.30 mg/dL [facility] Glucose 197 70 - 199 mg/dL [facility] Comment: Interpretive Data Fasting glucose >/= 126 mg/dl is diagnostic for diabetes. Fasting is defined as no caloric intake for at least 8 hours. Fasting glucose between 100 mg/dl to 125 mg/dl is diagnostic of prediabetes. In a patient with classic symptoms of hyperglycemia or hyperglycemic crisis, a random glucose >/= 200 mg/dl is diagnostic for diabetes. In the absence of unequivocal hyperglycemia, results should be confirmed by repeat testing. The classification and Diagnosis of Diabetes Diabetes Care 2021; 46: S19-S40. Current interpretive data was last revised 2022. Calcium 9.6 8.5 - 10.3 mg/dL [facility] Blood 08/09/2024 4:32 AM CDT 08/09/2024 5:04 AM CDT Angelina Vo NP LAB BLOOD ORDERABLES Final Result Performing Organization Address [facility]/ZIP Co de Phone Number [facility] [place] [address] * POCT glucose (08/09/2024 4:29 AM CDT) Glucose, POC 187 70 - 199 mg/dL Blood 08/09/2024 4:29 AM CDT 08/09/2024 4:29 AM CDT us Thompson Light MD PhD LAB POCT ORDERABLE S - DEVICE Final Result Performing Organization Address [facility] [place] [address] * (ABNORMAL) POCT glucose (08/08/2024 11:15 PM CDT) Glucose, POC 207(H) 70 - 199 mg/dL Blood 08/08/2024 11:1 5 PM CDT 08/08/2024 11:15 PM CDT us Thompson Light MD PhD LAB POCT ORDERABLE S - DEVICE Final Result Performing Organization Address [facility] Co de Phone Number [facility] [place] [address] * (ABNORMAL) POCT glucose (08/08/2024 7:57 PM CDT) Glucose, POC 293(H) 70 - 199 mg/dL Comment:Glu2: RN/MD Notified Glucose comment 1 Glu2: RN/MD Notified [facility] Blood 08/08/2024 7:57 PM CDT 08/08/2024 7:57 PM CDT us Thompson Light MD PhD LAB POCT ORDERABLE S - DEVICE Final Result Performing Organization Address [facility] Co de Phone Number [facility] [place] [address] * POCT glucose (08/08/2024 4:53 PM CDT) Glucose, POC 168 70 - 199 mg/dL Blood 08/08/2024 4:53 PM CDT 08/08/2024 4:53 PM CDT us Thompson Light MD PhD LAB POCT ORDERABLE S - DEVICE Final Result Performing Organization Address [facility] Co de Phone Number [facility] [place] [address] * (ABNORMAL) POCT glucose (08/08/2024 11:23 AM CDT) [facility] Glucose, POC 239(H) 70 - 199 mg/dL Comment:Glu2: RN/MD Notified Glucose comment 1 Glu2: RN/MD Notified [facility] Blood 08/08/2024 11:2 3 AM CDT 08/08/2024 11:23 AM CDT us Thompson Light MD PhD LAB POCT ORDERABLE S - DEVICE Final Result Performing Organization Address [facility] Co de Phone Number [facility] [place] [address] * POCT glucose (08/08/2024 7:41 AM CDT) Glucose, POC 135 70 - 199 mg/dL Blood 08/08/2024 7:41 AM CDT 08/08/2024 7:41 AM CDT us Thompson Light MD PhD LAB POCT ORDERABLE S - DEVICE Final Result Performing Organization Address [facility] Co de Phone Number [facility] [place] [address] * POCT glucose (08/08/2024 5:18 AM CDT) [facility] Glucose, POC 133 70 - 199 mg/dL Blood 08/08/2024 5:18 AM CDT 08/08/2024 5:18 AM CDT us Thompson Light MD PhD LAB POCT ORDERABLE S - DEVICE Final Result Performing Organization Address [facility]/ZIP Co de Phone Number [facility] [place] [address] * eGFR (08/08/2024 5:07 AM CDT) [facility] eGFR 88 >=60 mL/min/1. 73 m2 Comment: Interpretive Data Reference Interval Normal >/= 90 mL/min/1.73m2 Mildly decreased* 60 - 89 mL/min/1.73m2 Mildly to moderately decreased 45 - 59 mL/min/1.73m2 Moderately to severely decreased 30 - 44 mL/min/1.73m2 Severely decreased 15 - 29 mL/min/1.73m2 Kidney Failure < 15 mL/min/1.73m2 *Relative to young adult level Estimated glomerular filtration rate is determined by the 2020 CKD-EPI equation recommended by the National Kidney Foundation (A Unifying Approach to GFR Estimation: Recommendations of the NKF-ASK Task Force on Reassessing the Inclusion of Race in Diagnosing Kidney Disease, JASN 2020). The CKD-EPI equation should not be used for patients with unstable renal function and has not been validated in children and those over 70. Current interpretive data was last reviewed 2021. Blood 08/08/2024 5:07 AM CDT 08/08/2024 5:42 AM CDT us Angelina Vo GAS SINGER LAB BLOOD ORDERABLES Final Result [facility] [place] [place] [address] * (ABNORMAL) Protime-INR (08/08/2024 5:07 AM CDT) Pathologist [facility] [place] PT 22.0(H) 9.7 - 13.0 sec INR 2.01(H) 0.90 - 1.20 [facility] Comment: Interpretive data Oral anticoagulant therapeutic ranges: Venous thromboembolism prophylaxis or treatment: 2.0-3.0 CARDIOLOGY Standard range: 2.0-3.0 High-intensity range: 2.5-3.5 Refer to indication-specific guidelines for appropriate target ranges for prosthetic heart valve replacement. Current interpretive data was last revised on 2019. Blood 08/08/2024 5:07 AM CDT 08/08/2024 5:57 AM CDT us Angelina Vo NP LAB BLOOD ORDERABLES Final Result [facility] [place] [address] * (ABNORMAL) CBC without differential (08/08/2024 5:07 AM CDT) [facility] WBC 8.0 3.8 - 9.9 K/cumm Hgb 12.9(L) 13.0 - 17.5 g/dL [facility] Hct 40.1 38.9 - 50.3 % [facility] Plt 227 150 - 400 K/cumm [facility] MPV 10.5 9.1 - 12.3 fL [facility] RBC 4.66 4.30 - 5.80 M/cumm [facility] MCV 86.1 81.3 - 96.4 fL [facility] MCH 27.7 27.1 - 33.3 pg [facility] MCHC 32.2(L) 32.3 - 35.7 g/dL [facility] RDW CV 15.9(H) 11.1 - 14.9 % [facility] RDW SD 49.8(H) 35.7 - 48.1 fL [facility] NRBC abs 0.00 0.00 - 0.01 K/cumm [facility] Blood 08/08/2024 5:07 AM CDT 08/08/2024 5:42 AM CDT Angelina Vo GAS SINGER LAB BLOOD ORDERABLES Final Result [facility] [place] [address] * Basic metabolic panel (08/08/2024 5:07 AM CDT) Pathologist [facility] [place] Sodium 139 135 - 145 mmol/L Potassium, pl 4.1 3.3 - 4.9 mmol/L [facility] Chloride 105 97 - 110 mmol/L [facility] CO2 25 22 - 32 mmol/L [facility] Anion gap 9 2 - 15 mmol/L [facility] BUN 21 6 - 25 mg/dL [facility] Creatinine 0.83 0.80 - 1.30 mg/dL [facility] Glucose 144 70 - 199 mg/dL [facility] Comment: Interpretive Data Fasting glucose >/= 126 mg/dl is diagnostic for diabetes. Fasting is defined as no caloric intake for at least 8 hours. Fasting glucose between 100 mg/dl to 125 mg/dl is diagnostic of prediabetes. In a patient with classic symptoms of hyperglycemia or hyperglycemic crisis, a random glucose >/= 200 mg/dl is diagnostic for diabetes. In the absence of unequivocal hyperglycemia, results should be confirmed by repeat testing. The classification and Diagnosis of Diabetes Diabetes Care 2021; 46: S19-S40. Current interpretive data was last revised 2022. Calcium 9.3 8.5 - 10.3 mg/dL [facility] Blood 08/08/2024 5:07 AM CDT 08/08/2024 5:42 AM CDT Angelina Vo GAS SINGER LAB BLOOD ORDERABLES Final Result [facility] [place] [address] * POCT glucose (08/08/2024 12:15 AM CDT) Glucose, POC 149 70 - 199 mg/dL Blood 08/08/2024 12:1 5 AM CDT 08/08/2024 12:15 AM CDT us Thompson Light MD PhD LAB POCT ORDERABLE S - DEVICE Final Result Performing Organization Address [facility] de Phone Number [facility] [place] [address] * (ABNORMAL) Vancomycin level trough (08/07/2024 10:49 PM CDT) Vancomycin trough 23.6(H) 10.0 - 20.0 mcg/mL Blood 08/07/2024 10:4 9 PM CDT 08/07/2024 11:24 PM CDT us Thompson Napoles MD LAB BLOOD ORDERABLES Fin al Result Performing Organization Address [facility] de Phone Number [facility] [place] [address] * POCT glucose (08/07/2024 8:03 PM CDT) Glucose, POC 169 70 - 199 mg/dL Blood 08/07/2024 8:03 PM CDT 08/07/2024 8:03 PM CDT us Thompson Light MD PhD LAB POCT ORDERABLE S - DEVICE Final Result Performing Organization Address [facility] de Phone Number [facility] [place] [address] * POCT glucose (08/07/2024 4:45 PM CDT) Glucose, POC 141 70 - 199 mg/dL Blood 08/07/2024 4:45 PM CDT 08/07/2024 4:45 PM CDT us Thompson Light MD PhD LAB POCT ORDERABLE S - DEVICE Final Result Performing Organization Address [facility] Co de Phone Number [facility] [place] [address] * POCT glucose (08/07/2024 11:50 AM CDT) Glucose, POC 119 70 - 199 mg/dL Blood 08/07/2024 11:5 0 AM CDT 08/07/2024 11:50 AM CDT us Thompson Light MD PhD LAB POCT ORDERABLE S - DEVICE Final Result Performing Organization Address [facility] de Phone Number FRANCIA [facility] [place] [address] * POCT glucose (08/07/2024 7:18 AM CDT) Glucose, POC 136 70 - 199 mg/dL Blood 08/07/2024 7:18 AM CDT 08/07/2024 7:18 AM CDT us Thompson iLght MD PhD LAB POCT ORDERABLE S - DEVICE Final Result Performing Organization Address [facility] Co de Phone Number [facility] [place] [address] * eGFR (08/07/2024 3:52 AM CDT) eGFR 88 >=60 mL/min/1. 73 m2 Comment: Interpretive Data Reference Interval Normal >/= 90 mL/min/1.73m2 Mildly decreased* 60 - 89 mL/min/1.73m2 Mildly to moderately decreased 45 - 59 mL/min/1.73m2 Moderately to severely decreased 30 - 44 mL/min/1.73m2 Severely decreased 15 - 29 mL/min/1.73m2 Kidney Failure < 15 mL/min/1.73m2 *Relative to young adult level Estimated glomerular filtration rate is determined by the 2020 CKD-EPI equation recommended by the National Kidney Foundation (A Unifying Approach to GFR Estimation: Recommendations of the NKF-ASK Task Force on Reassessing the Inclusion of Race in Diagnosing Kidney Disease, JASN 2020). The CKD-EPI equation should not be used for patients with unstable renal function and has not been validated in children and those over 70. Current interpretive data was last reviewed 2021. Blood 08/07/2024 3:52 AM CDT 08/07/2024 4:48 AM CDT Angelina Vo NP LAB BLOOD ORDERABLES Final Result [facility] SUBRAM[facility] [place] [address] * (ABNORMAL) aPTT (08/07/2024 3:52 AM CDT) aPTT 65(H) 28 - 38 sec Comment: Interpretive Data Heparin therapeutic range: 66.0 - 100.0 seconds. Range based on correlation with therapeutic heparin activity range of 0.3 - 0.7 Units/mL. Current interpretive data was last revised on 2023. Blood 08/07/2024 3:52 AM CDT 08/07/2024 4:41 AM CDT Narrative FRANCIA SUBRAMANIAN - 08/07/2024 4:58 AM CDT STAT PTT timing: - Draw 6 hours after heparin infusion initiation - Draw 6 hours after every dose change until 2 consecutive PTTs are therapeutic - Once 2 consecutive PTTs are therapeutic, obtain with daily labs until infusion is discontinued - - Restart every 6 hour lab draws and follow instructions accordingly if PTT is outside of therapeutic range Do not draw lab from IV line that is actively infusing heparin. Use the opposite arm. If arm with actively infusing heparin must be used, pause the infusion for at least 2 minutes, and draw specimen below the IV site. For patients with a central venous catheter (CVC), lab must be drawn peripherally (not from CVC). us Thompson Light MD PhD LAB BLOOD ORDERABL ES Final Result Performing Organization Address [facility] Co de Phone Number [facility] [place] [address] * (ABNORMAL) Protime-INR (08/07/2024 3:52 AM CDT) Pathologist [facility] PT 20.3(H) 9.7 - 13.0 sec INR 1.86(H) 0.90 - 1.20 [facility] Comment: Interpretive data Oral anticoagulant therapeutic ranges: Venous thromboembolism prophylaxis or treatment: 2.0-3.0 CARDIOLOGY Standard range: 2.0-3.0 High-intensity range: 2.5-3.5 Refer to indication-specific guidelines for appropriate target ranges for prosthetic heart valve replacement. Current interpretive data was last revised on 2019. Blood 08/07/2024 3:52 AM CDT 08/07/2024 4:41 AM CDT us Thompson Light MD PhD LAB BLOOD ORDERABL ES Final Result Performing Organization Address [facility] de Phone Number [facility] [place] [address] * (ABNORMAL) CBC without differential (08/07/2024 3:52 AM CDT) WBC 7.4 3.8 - 9.9 K/cumm Hgb 12.6(L) 13.0 - 17.5 g/dL [facility] Hct 39.8 38.9 - 50.3 % [facility] Plt 240 150 - 400 K/cumm [facility] MPV 10.6 9.1 - 12.3 fL [facility] RBC 4.55 4.30 - 5.80 M/cumm [facility] MCV 87.5 81.3 - 96.4 fL [facility] MCH 27.7 27.1 - 33.3 pg [facility] MCHC 31.7(L) 32.3 - 35.7 g/dL [facility] RDW CV 16.1(H) 11.1 - 14.9 % [facility] RDW SD 50.7(H) 35.7 - 48.1 fL [facility] NRBC abs 0.00 0.00 - 0.01 K/cumm [facility] Blood 08/07/2024 3:52 AM CDT 08/07/2024 4:49 AM CDT Angelina Vo GAS SINGER LAB BLOOD ORDERABLES Final Result [facility] [place] [address] * Basic metabolic panel (08/07/2024 3:52 AM CDT) Sodium 140 135 - 145 mmol/L Potassium, pl 4.1 3.3 - 4.9 mmol/L [facility] Chloride 106 97 - 110 mmol/L [facility] CO2 22 22 - 32 mmol/L [facility] Anion gap 12 2 - 15 mmol/L [facility] BUN 21 6 - 25 mg/dL [facility] Creatinine 0.83 0.80 - 1.30 mg/dL [facility] Glucose 140 70 - 199 mg/dL [facility] Comment: Interpretive Data Fasting glucose >/= 126 mg/dl is diagnostic for diabetes. Fasting is defined as no caloric intake for at least 8 hours. Fasting glucose between 100 mg/dl to 125 mg/dl is diagnostic of prediabetes. In a patient with classic symptoms of hyperglycemia or hyperglycemic crisis, a random glucose >/= 200 mg/dl is diagnostic for diabetes. In the absence of unequivocal hyperglycemia, results should be confirmed by repeat testing. The classification and Diagnosis of Diabetes Diabetes Care 202; 46: S19-S40. Current interpretive data was last revised 2022. Calcium 9.3 8.5 - 10.3 mg/dL [facility] Blood 08/07/2024 3:52 AM CDT 08/07/2024 4:48 AM CDT Angelina Vo GAS SINGER LAB BLOOD ORDERABLES Final Result [facility] [place] [address] * POCT glucose (08/06/2024 11:21 PM CDT) Glucose, POC 140 70 - 199 mg/dL Blood 08/06/2024 11:2 1 PM CDT 08/06/2024 11:21 PM CDT Thompson Light MD PhD LAB POCT ORDERABLE S - DEVICE Final Result Performing Organization Address [facility] Co de Phone Number [facility] [place] [address] * (ABNORMAL) aPTT (08/06/2024 8:45 PM CDT) aPTT 43(H) 28 - 38 sec Comment: Interpretive Data Heparin therapeutic range: 66.0 - 100.0 seconds. Range based on correlation with therapeutic heparin activity range of 0.3 - 0.7 Units/mL. Current interpretive data was last revised on 2023. Blood 08/06/2024 8:45 PM CDT 08/06/2024 9:42 PM CDT Narrative [facility] - 08/06/2024 9:52 PM CDT STAT PTT timing: - Draw 6 hours after heparin infusion initiation - Draw 6 hours after every dose change until 2 consecutive PTTs are therapeutic - Once 2 consecutive PTTs are therapeutic, obtain with daily labs until infusion is discontinued - - Restart every 6 hour lab draws and follow instructions accordingly if PTT is outside of therapeutic range Do not draw lab from IV line that is actively infusing heparin. Use the opposite arm. If arm with actively infusing heparin must be used, pause the infusion for at least 2 minutes, and draw specimen below the IV site. For patients with a central venous catheter (CVC), lab must be drawn peripherally (not from CVC). us Thompson Light MD PhD LAB BLOOD ORDERABL ES Final Result Performing Organization Address [facility] Co de Phone Number [facility] [place] [place] [address] * POCT glucose (08/06/2024 7:42 PM CDT) Glucose, POC 155 70 - 199 mg/dL Blood 08/06/2024 7:42 PM CDT 08/06/2024 7:42 PM CDT us Thompson Light MD PhD LAB POCT ORDERABLE S - DEVICE Final Result Performing Organization Address [facility] Co de Phone Number [facility] [place] [address] * POCT glucose (08/06/2024 4:51 PM CDT) Glucose, POC 172 70 - 199 mg/dL Blood 08/06/2024 4:51 PM CDT 08/06/2024 4:51 PM CDT Thompson Light MD PhD LAB POCT ORDERABLE S - DEVICE Final Result Performing Organization Address [facility] de Phone Number [facility] [place] [address] * aPTT (08/06/2024 2:11 PM CDT) aPTT 36 28 - 38 sec Comment: Interpretive Data Heparin therapeutic range: 66.0 - 100.0 seconds. Range based on correlation with therapeutic heparin activity range of 0.3 - 0.7 Units/mL. Current interpretive data was last revised on 2023. Blood 08/06/2024 2:11 PM CDT 08/06/2024 3:33 PM CDT Narrative [facility] - 08/06/2024 3:44 PM CDT Baseline prior to heparin initiation us Thompson Light MD PhD LAB BLOOD ORDERABL ES Final Result Performing Organization Address [facility] de Phone Number [facility] [place] [address] * POCT glucose (08/06/2024 11:23 AM CDT) Glucose, POC 149 70 - 199 mg/dL Blood 08/06/2024 11:2 3 AM CDT 08/06/2024 11:23 AM CDT us Thompson Light MD PhD LAB POCT ORDERABLE S - DEVICE Final Result Performing Organization Address [facility] de Phone Number [facility] [place] [address] * POCT glucose (08/06/2024 7:33 AM CDT) Glucose, POC 157 70 - 199 mg/dL Blood 08/06/2024 7:33 AM CDT 08/06/2024 7:33 AM CDT us Thompson Light MD PhD LAB POCT ORDERABLE S - DEVICE Final Result Performing Organization Address [facility] de Phone Number [facility] [place] [address] * eGFR (08/06/2024 3:35 AM CDT) eGFR >90 >=60 mL/min/1. 73 m2 Comment: Interpretive Data Reference Interval Normal >/= 90 mL/min/1.73m2 Mildly decreased* 60 - 89 mL/min/1.73m2 Mildly to moderately decreased 45 - 59 mL/min/1.73m2 Moderately to severely decreased 30 - 44 mL/min/1.73m2 Severely decreased 15 - 29 mL/min/1.73m2 Kidney Failure < 15 mL/min/1.73m2 *Relative to young adult level Estimated glomerular filtration rate is determined by the 2020 CKD-EPI equation recommended by the National Kidney Foundation (A Unifying Approach to GFR Estimation: Recommendations of the NKF-ASK Task Force on Reassessing the Inclusion of Race in Diagnosing Kidney Disease, JASN 2020). The CKD-EPI equation should not be used for patients with unstable renal function and has not been validated in children and those over 70. Current interpretive data was last reviewed 2021. Blood 08/06/2024 3:35 AM CDT 08/06/2024 4:28 AM CDT Angelina Vo LAB BLOOD ORDERABLES Final Result Performing Organization Address [facility] de Phone Number [facility] [place] [address] * (ABNORMAL) Protime-INR (08/06/2024 3:35 AM CDT) PT 17.3(H) 9.7 - 13.0 sec INR 1.59(H) 0.90 - 1.20 [facility] Comment: Interpretive data Oral anticoagulant therapeutic ranges: Venous thromboembolism prophylaxis or treatment: 2.0-3.0 CARDIOLOGY Standard range: 2.0-3.0 High-intensity range: 2.5-3.5 Refer to indication-specific guidelines for appropriate target ranges for prosthetic heart valve replacement. Current interpretive data was last revised on 2019. Blood 08/06/2024 3:35 AM CDT 08/06/2024 4:26 AM CDT Angelina Vo NP LAB BLOOD ORDERABLES Final Result Performing Organization Address [facility] de Phone Number [facility] [place] [address] * (ABNORMAL) CBC without differential (08/06/2024 3:35 AM CDT) [facility] WBC 9.0 3.8 - 9.9 K/cumm Hgb 13.1 13.0 - 17.5 g/dL [facility] Hct 41.8 38.9 - 50.3 % [facility] Plt 237 150 - 400 K/cumm [facility] MPV 10.1 9.1 - 12.3 fL [facility] RBC 4.73 4.30 - 5.80 M/cumm [facility] MCV 88.4 81.3 - 96.4 fL [facility] MCH 27.7 27.1 - 33.3 pg [facility] MCHC 31.3(L) 32.3 - 35.7 g/dL [facility] RDW CV 16.2(H) 11.1 - 14.9 % [facility] RDW SD 52.1(H) 35.7 - 48.1 fL [facility] NRBC abs 0.00 0.00 - 0.01 K/cumm [facility] Blood 08/06/2024 3:35 AM CDT 08/06/2024 4:28 AM CDT Angelina oV NP LAB BLOOD ORDERABLES Final Result [facility] [place] [address] * (ABNORMAL) Basic metabolic panel (08/06/2024 3:35 AM CDT) [facility] Sodium 139 135 - 145 mmol/L Potassium, pl 4.3 3.3 - 4.9 mmol/L [facility] Chloride 104 97 - 110 mmol/L [facility] CO2 23 22 - 32 mmol/L [facility] Anion gap 12 2 - 15 mmol/L [facility] BUN 18 6 - 25 mg/dL [facility] Creatinine 0.72(L) 0.80 - 1.30 mg/dL [facility] Glucose 170 70 - 199 mg/dL [facility] Comment: Interpretive Data Fasting glucose >/= 126 mg/dl is diagnostic for diabetes. Fasting is defined as no caloric intake for at least 8 hours. Fasting glucose between 100 mg/dl to 125 mg/dl is diagnostic of prediabetes. In a patient with classic symptoms of hyperglycemia or hyperglycemic crisis, a random glucose >/= 200 mg/dl is diagnostic for diabetes. In the absence of unequivocal hyperglycemia, results should be confirmed by repeat testing. The classification and Diagnosis of Diabetes Diabetes Care 2021; 46: S19-S40. Current interpretive data was last revised 2022. Calcium 9.8 8.5 - 10.3 mg/dL [facility] Blood 08/06/2024 3:35 AM CDT 08/06/2024 4:28 AM CDT Angelina Vo GAS SINGER LAB BLOOD ORDERABLES Final Result Performing Organization Address [facility] Co de Phone Number [facility] [place] [address] * POCT glucose (08/06/2024 12:39 AM CDT) Glucose, POC 178 70 - 199 mg/dL Blood 08/06/2024 12:3 9 AM CDT 08/06/2024 12:39 AM CDT Thompson Light MD PhD LAB POCT ORDERABLE S - DEVICE Final Result Performing Organization Address [facility] de Phone Number [facility] Department [place] [address] * (ABNORMAL) POCT glucose (08/05/2024 7:33 PM CDT) Glucose, POC 228(H) 70 - 199 mg/dL Blood 08/05/2024 7:33 PM CDT 08/05/2024 7:33 PM CDT Thompson Light MD PhD LAB POCT ORDERABLE S - DEVICE Final Result Performing Organization Address [facility]/ZIP Co de Phone Number [facility] [place] [address] * POCT glucose (08/05/2024 4:46 PM CDT) Glucose, POC 144 70 - 199 mg/dL Blood 08/05/2024 4:46 PM CDT 08/05/2024 4:46 PM CDT us Thompson Light MD PhD LAB POCT ORDERABLE S - DEVICE Final Result Performing Organization Address [facility] [place] [address] * (ABNORMAL) POCT glucose (08/05/2024 11:15 AM CDT) Glucose, POC 238(H) 70 - 199 mg/dL Blood 08/05/2024 11:1 5 AM CDT 08/05/2024 11:15 AM CDT us Thompson Light MD PhD LAB POCT ORDERABLE S - DEVICE Final Result Performing Organization Address [facility] Co de Phone Number [facility] [place] [address] * POCT glucose (08/05/2024 7:31 AM CDT) Glucose, POC 190 70 - 199 mg/dL Blood 08/05/2024 7:31 AM CDT 08/05/2024 7:31 AM CDT us Thompson Light MD PhD LAB POCT ORDERABLE S - DEVICE Final Result Performing Organization Address [facility]/ZIP Co de Phone Number [facility] [place] [address] * (ABNORMAL) Troponin I high-sensitivity 2-hour (08/05/2024 3:49 AM CDT) Trop I hs 39(H) <=35 ng/L Comment: Interpretive Data For further hscTnI resources including the diagnostic algorithm and an aid in interpretation, copy and paste this link: [email or web address]/show/[email or web address] Current Interpretive Data last revised 2019. Trop I hs delta See Comment ng/L [facility] Comment:Inappropriate collec tion time to report a delta. Trop I hs pct delta See Comment % [facility] Comment:Inappropriate collec tion time to report a delta. Trop I hs interp See Comment [facility] Comment:Inappropriate collec tion time to report a delta. Blood 08/05/2024 3:49 AM CDT 08/05/2024 4:34 AM CDT us Catie Moody MD LAB BLOOD ORDERABLES Final R esult [facility] [place] [address] * eGFR (08/05/2024 3:49 AM CDT) eGFR >90 >=60 mL/min/1. 73 m2 Comment: Interpretive Data Reference Interval Normal >/= 90 mL/min/1.73m2 Mildly decreased* 60 - 89 mL/min/1.73m2 Mildly to moderately decreased 45 - 59 mL/min/1.73m2 Moderately to severely decreased 30 - 44 mL/min/1.73m2 Severely decreased 15 - 29 mL/min/1.73m2 Kidney Failure < 15 mL/min/1.73m2 *Relative to young adult level Estimated glomerular filtration rate is determined by the 2020 CKD-EPI equation recommended by the National Kidney Foundation (A Unifying Approach to GFR Estimation: Recommendations of the NKF-ASK Task Force on Reassessing the Inclusion of Race in Diagnosing Kidney Disease, JASN 2020). The CKD-EPI equation should not be used for patients with unstable renal function and has not been validated in children and those over 70. Current interpretive data was last reviewed 2021. Blood 08/05/2024 3:49 AM CDT 08/05/2024 4:34 AM CDT Angelina Vo GAS SINGER LAB BLOOD ORDERABLES Final Result Performing Organization Address [facility] de Phone Number [facility] [place] [address] * (ABNORMAL) Protime-INR (08/05/2024 3:49 AM CDT) PT 17.7(H) 9.7 - 13.0 sec INR 1.62(H) 0.90 - 1.20 [facility] Comment: Interpretive data Oral anticoagulant therapeutic ranges: Venous thromboembolism prophylaxis or treatment: 2.0-3.0 CARDIOLOGY Standard range: 2.0-3.0 High-intensity range: 2.5-3.5 Refer to indication-specific guidelines for appropriate target ranges for prosthetic heart valve replacement. Current interpretive data was last revised on 2019. Blood 08/05/2024 3:49 AM CDT 08/05/2024 4:35 AM CDT Angelina Vo NP LAB BLOOD ORDERABLES Final Result Performing Organization Address [facility] de Phone Number [facility] [place] [address] * (ABNORMAL) CBC without differential (08/05/2024 3:49 AM CDT) WBC 8.4 3.8 - 9.9 K/cumm Hgb 12.8(L) 13.0 - 17.5 g/dL [facility] Hct 40.7 38.9 - 50.3 % [facility] Plt 226 150 - 400 K/cumm [facility] MPV 10.3 9.1 - 12.3 fL [facility] RBC 4.60 4.30 - 5.80 M/cumm [facility] MCV 88.5 81.3 - 96.4 fL [facility] MCH 27.8 27.1 - 33.3 pg [facility] MCHC 31.4(L) 32.3 - 35.7 g/dL [facility] RDW CV 16.2(H) 11.1 - 14.9 % [facility] RDW SD 51.8(H) 35.7 - 48.1 fL [facility] NRBC abs 0.00 0.00 - 0.01 K/cumm [facility] Blood 08/05/2024 3:49 AM CDT 08/05/2024 4:34 AM CDT Angelina Vo NP LAB BLOOD ORDERABLES Final Result [facility] [place] [address] * (ABNORMAL) Basic metabolic panel (08/05/2024 3:49 AM CDT) Sodium 140 135 - 145 mmol/L Potassium, pl 4.3 3.3 - 4.9 mmol/L [facility] Chloride 106 97 - 110 mmol/L [facility] CO2 23 22 - 32 mmol/L [facility] Anion gap 11 2 - 15 mmol/L [facility] BUN 15 6 - 25 mg/dL [facility] Creatinine 0.73(L) 0.80 - 1.30 mg/dL [facility] Glucose 196 70 - 199 mg/dL [facility] Comment: Interpretive Data Fasting glucose >/= 126 mg/dl is diagnostic for diabetes. Fasting is defined as no caloric intake for at least 8 hours. Fasting glucose between 100 mg/dl to 125 mg/dl is diagnostic of prediabetes. In a patient with classic symptoms of hyperglycemia or hyperglycemic crisis, a random glucose >/= 200 mg/dl is diagnostic for diabetes. In the absence of unequivocal hyperglycemia, results should be confirmed by repeat testing. The classification and Diagnosis of Diabetes Diabetes Care 202; 46: S19-S40. Current interpretive data was last revised 2022. Calcium 9.0 8.5 - 10.3 mg/dL [facility] Blood 08/05/2024 3:49 AM CDT 08/05/2024 4:34 AM CDT us Angelina Vo NP LAB BLOOD ORDERABLES Final Result Performing Organization Address City/[facility]/ZIP Co de Phone Number [facility] [place] [address] * Vancomycin level trough Draw trough 30 minutes prior to 4th dose. (08/04/2024 9:02 PM CDT) Pathologist [facility] [place] Vancomycin trough 14.5 10.0 - 20.0 mcg/mL Blood 08/04/2024 9:02 PM CDT 08/04/2024 9:55 PM CDT Narrative [facility] - 08/04/2024 10:27 PM CDT Draw trough 30 minutes prior to 4th dose. us Miryam Fonseca MD LAB BLOOD ORDERABLES Final Result Performing Organization Address [facility] Co de Phone Number [facility] [place] [address] * (ABNORMAL) POCT glucose (08/04/2024 7:37 PM CDT) Glucose, POC 250(H) 70 - 199 mg/dL Blood 08/04/2024 7:37 PM CDT 08/04/2024 7:37 PM CDT us Thompson Light MD PhD LAB POCT ORDERABLE S - DEVICE Final Result Performing Organization Address [facility] Co de Phone Number [facility] [place] [address] * (ABNORMAL) Aerobic and anaerobic culture and gram stain Driveline site Abdominal (08/04/2024 12:47 PM CDT) Direct Specimen Exam Stain: No polymorphonuclear leukocytes seen. No organisms seen. Report Final Report: Rare Staphylococcus aureus Methicillin resistant (MRSA) by penicillin binding protein 2a (PBP2a) testing. (.) [facility] Organism STAP[facility]LOCOCCUS AUREUS [facility] Driveline site (Abdominal) 08/04/2024 12:47 PM CDT 08/04/2024 2:05 PM CDT Narrative [facility] - 08/09/2024 2:14 PM CDT Testing performed by [facility] ([phone]) Specimens submitted from normally sterile body sites will have all bacterial morphotypes identified. Specimens that contain grossly mixed annamaria and/or are from body sites that are not normally sterile will be examined for Staphylococcus aureus, Pseudomonas aeruginosa, beta-hemolytic strep, vancomycin-resistant Enterococcus, Bacteroides, Parabacteroides, Clostridium perfringens and fungus. If any of these are isolated, the organism will be reported. Current interpretive data was last revised on 2019. Organism Antibiotic Method Susceptibility Staphylococcus aureus Daptomycin (ZAYNAB) (ZAYNAB) INTERPRET ATION Susceptible Staphylococcus aureus Ceftaroline (ZAYNAB) INTERPRETATIO N Susceptible Staphylococcus aureus Doxycycline (ZAYNAB) INTERPRETATIO N Susceptible Staphylococcus aureus Linezolid (ZAYNAB) INTERPRETATIO N Susceptible Staphylococcus aureus Trimethoprim with Sulfamethoxazole (ZAYNAB) INTERPRETATION Susceptible Staphylococcus aureus Clindamycin (ZAYNAB) INTERPRETATIO N Resistant Staphylococcus aureus Erythromycin (ZAYNAB) INTERPRETATIO N Resistant Staphylococcus aureus Vancomycin (ZAYNAB) INTERPRETATIO N Susceptible Staphylococcus aureus Oxacillin (ZAYNAB) INTERPRETATIO N Resistant Staphylococcus aureus Cefazolin (ZAYNAB) INTERPRETATIO N Resistant Staphylococcus aureus Ceftriaxone (ZAYNAB) INTERPRETATIO N Resistant us Miryam Fonseca MD LAB MICROBIOLOGY - G ENERAL ORDERABLES Final Result [facility] Department [place] [address] * (ABNORMAL) POCT glucose (08/04/2024 11:46 AM CDT) Glucose, POC 286(H) 70 - 199 mg/dL Comment:Glu2: RN/ Notified Glucose comment 1 Glu2: RN/MD [facility] Blood 08/04/2024 11:4 6 AM CDT 08/04/2024 11:46 AM CDT us Thompson Light MD PhD LAB POCT ORDERABLE S - DEVICE Final Result Performing Organization Address [facility] Co de Phone Number [facility] [place] [address] * POCT glucose (08/04/2024 7:46 AM CDT) Glucose, POC 170 70 - 199 mg/dL Blood 08/04/2024 7:46 AM CDT 08/04/2024 7:46 AM CDT us Thompson Light MD PhD LAB POCT ORDERABLE S - DEVICE Final Result Performing Organization Address [facility] de Phone Number [facility] [place] [address] * eGFR (08/04/2024 3:23 AM CDT) eGFR 88 >=60 mL/min/1. 73 m2 Comment: Interpretive Data Reference Interval Normal >/= 90 mL/min/1.73m2 Mildly decreased* 60 - 89 mL/min/1.73m2 Mildly to moderately decreased 45 - 59 mL/min/1.73m2 Moderately to severely decreased 30 - 44 mL/min/1.73m2 Severely decreased 15 - 29 mL/min/1.73m2 Kidney Failure < 15 mL/min/1.73m2 *Relative to young adult level Estimated glomerular filtration rate is determined by the 2020 CKD-EPI equation recommended by the National Kidney Foundation (A Unifying Approach to GFR Estimation: Recommendations of the NKF-ASK Task Force on Reassessing the Inclusion of Race in Diagnosing Kidney Disease, JASN 2020). The CKD-EPI equation should not be used for patients with unstable renal function and has not been validated in children and those over 70. Current interpretive data was last reviewed 2021. Blood 08/04/2024 3:23 AM CDT 08/04/2024 4:32 AM CDT Angelina Vo NP LAB BLOOD ORDERABLES Final Result Performing Organization Address [facility] Co de Phone Number [facility] [place] [address] * (ABNORMAL) Protime-INR (08/04/2024 3:23 AM CDT) PT 17.6(H) 9.7 - 13.0 sec INR 1.61(H) 0.90 - 1.20 [facility] Comment: Interpretive data Oral anticoagulant therapeutic ranges: Venous thromboembolism prophylaxis or treatment: 2.0-3.0 CARDIOLOGY Standard range: 2.0-3.0 High-intensity range: 2.5-3.5 Refer to indication-specific guidelines for appropriate target ranges for prosthetic heart valve replacement. Current interpretive data was last revised on 2019. Blood 08/04/2024 3:23 AM CDT 08/04/2024 4:27 AM CDT Angelina Vo NP LAB BLOOD ORDERABLES Final Result Performing Organization Address [facility] Co de Phone Number [facility] [place] [address] * (ABNORMAL) CBC without differential (08/04/2024 3:23 AM CDT) WBC 8.1 3.8 - 9.9 K/cumm Hgb 12.1(L) 13.0 - 17.5 g/dL [facility] Hct 36.7(L) 38.9 - 50.3 % [facility] Plt 251 150 - 400 K/cumm [facility] MPV 10.6 9.1 - 12.3 fL [facility] RBC 4.31 4.30 - 5.80 M/cumm [facility] MCV 85.2 81.3 - 96.4 fL [facility] MCH 28.1 27.1 - 33.3 pg [facility] MCHC 33.0 32.3 - 35.7 g/dL [facility] RDW CV 15.9(H) 11.1 - 14.9 % [facility] RDW SD 50.0(H) 35.7 - 48.1 fL [facility] NRBC abs 0.00 0.00 - 0.01 K/cumm [facility] Blood 08/04/2024 3:23 AM CDT 08/04/2024 4:32 AM CDT us Angelina Vo GAS SINGER LAB BLOOD ORDERABLES Final Result Performing Organization Address [facility]/ZIP Co de Phone Number [facility] [place] [address] * Magnesium (08/04/2024 3:23 AM CDT) [facility] Magnesium 1.9 1.4 - 2.5 mg/dL Blood 08/04/2024 3:23 AM CDT 08/04/2024 4:32 AM CDT Angelina Vo GAS SINGER LAB BLOOD ORDERABLES Final Result Performing Organization Address City/[facility]/ZIP Co de Phone Number [facility] [place] [address] * (ABNORMAL) Comprehensive metabolic panel (08/04/2024 3:23 AM CDT) Pathologist [facility] [place] Sodium 136 135 - 145 mmol/L Potassium, pl 3.8 3.3 - 4.9 mmol/L [facility] Chloride 103 97 - 110 mmol/L [facility] CO2 21(L) 22 - 32 mmol/L [facility] Anion gap 12 2 - 15 mmol/L [facility] BUN 15 6 - 25 mg/dL [facility] Creatinine 0.82 0.80 - 1.30 mg/dL [facility] Glucose 181 70 - 199 mg/dL [facility] Comment: Interpretive Data Fasting glucose >/= 126 mg/dl is diagnostic for diabetes. Fasting is defined as no caloric intake for at least 8 hours. Fasting glucose between 100 mg/dl to 125 mg/dl is diagnostic of prediabetes. In a patient with classic symptoms of hyperglycemia or hyperglycemic crisis, a random glucose >/= 200 mg/dl is diagnostic for diabetes. In the absence of unequivocal hyperglycemia, results should be confirmed by repeat testing. The classification and Diagnosis of Diabetes Diabetes Care 2021; 46: S19-S40. Current interpretive data was last revised 2022. Calcium 8.4(L) 8.5 - 10.3 mg/dL [facility] Comment:Reviewed Bilirubin, total 0.5 0.1 - 1.2 mg/dL [facility] Protein, pl 6.6 6.5 - 8.5 g/dL [facility] Albumin 3.1(L) 3.5 - 5.0 g/dL [facility] Alk phos 101 40 - 130 Units/L [facility] ALT 12 7 - 55 Units/L [facility] AST 27 10 - 50 Units/L [facility] Blood 08/04/2024 3:23 AM CDT 08/04/2024 4:32 AM CDT us Angelina Vo GAS SINGER LAB BLOOD ORDERABLES Final Result [facility] [place] [address] * (ABNORMAL) POCT glucose (08/03/2024 8:00 PM CDT) [facility] Glucose, POC 297(H) 70 - 199 mg/dL Comment:Glu2: RN/ Notified Glucose comment 1 Glu2: RN/ Notified [facility] Blood 08/03/2024 8:00 PM CDT 08/03/2024 8:00 PM CDT us [place] Light MD PhD LAB POCT ORDERABLE S - DEVICE Final Result Performing Organization Address [facility] Co de Phone Number [facility] [place] [address] * ECG 12 lead (08/03/2024 4:30 PM CDT) Pathologist [facility] [place] Ventricular Rate EKG/Min 99 BPM [facility] QRS-Interval (MSEC) 132 ms [facility] QT-Interval (MSEC) 412 ms [facility] QTc 528 ms [facility] R [place] 33 degrees [facility] T [place] 101 degrees [facility] Diagnosis Atrial fibrillation with premature ventricular or aberrantly conducted complexes Non-specific intra-ventricul ar conduction block Nonspecific T wave abnormality Abnormal ECG Confirmed by CRISTEL VELASQUEZ M.D ([id number]) on 08/17/2024 2:38:34 PM [facility] 08/03/2024 4:30 PM CDT 08/17/2024 2:38 PM CDT us Angelina Vo GAS SINGER ECG ORDERABLES Final Resul t Performing Organization Address [facility] Co de Phone Number [facility] * (ABNORMAL) POCT glucose (08/03/2024 4:26 PM CDT) Glucose, POC 320(H) 70 - 199 mg/dL Blood 08/03/2024 4:26 PM CDT 08/03/2024 4:26 PM CDT us Thompson Light MD PhD LAB POCT ORDERABLE S - DEVICE Final Result Performing Organization Address [facility] Co de Phone Number FRANCIA [facility] [place] [address] * (ABNORMAL) POCT glucose (08/03/2024 12:52 PM CDT) Glucose, POC 214(H) 70 - 199 mg/dL Blood 08/03/2024 12:5 2 PM CDT 08/03/2024 12:52 PM CDT [place] Araujo MD LAB POCT ORDERABLES - DEV ICE Final Result Performing Organization Address [facility] de Phone Number [facility] [place] [employer] [place] [address] * POCT glucose (08/03/2024 7:16 AM CDT) Glucose, POC 193 70 - 199 mg/dL Blood 08/03/2024 7:16 AM CDT 08/03/2024 7:16 AM CDT [place] Araujo MD LAB POCT ORDERABLES - DEV ICE Final Result Performing Organization Address [facility] de Phone Number [facility] [place] [address] * POCT glucose (08/03/2024 4:17 AM CDT) Glucose, POC 197 70 - 199 mg/dL Blood 08/03/2024 4:17 AM CDT 08/03/2024 4:17 AM CDT [place] Araujo MD LAB POCT ORDERABLES - DEV ICE Final Result Performing Organization Address [facility] [place] [address] * (ABNORMAL) POCT glucose (08/03/2024 1:54 AM CDT) Glucose, POC 239(H) 70 - 199 mg/dL Comment:Glu2: RN/MD Notified Glucose comment 1 Glu2: RN/MD Notified [facility] Blood 08/03/2024 1:54 AM CDT 08/03/2024 1:54 AM CDT us [place] Araujo MD LAB POCT ORDERABLES - DEV ICE Final Result [facility] [place] [address] * (ABNORMAL) Troponin I high-sensitivity 4-hour (08/02/2024 9:24 PM CDT) Trop I hs 36(H) <=35 ng/L Comment: Interpretive Data For further hscTnI resources including the diagnostic algorithm and an aid in interpretation, copy and paste this link: https://bjhlab.testcatalog.org/show/hsTrop-1 Current Interpretive Data last revised 2019. Trop I hs delta 7 ng/L [facility] Trop I hs interp Equivocal [facility] Blood 08/02/2024 9:24 PM CDT 08/02/2024 10:01 PM CDT us Catie Moody MD LAB BLOOD ORDERABLES Final R esult Performing Organization Address City/[facility]/ZIP Co de Phone Number [facility] [place] [place] [address] * (ABNORMAL) POCT glucose (08/02/2024 9:20 PM CDT) Glucose, POC 208(H) 70 - 199 mg/dL Blood 08/02/2024 9:20 PM CDT 08/02/2024 9:20 PM CDT us [place] Light MD PhD LAB POCT ORDERABLE S - DEVICE Final Result Performing Organization Address [facility]/ZIP Co de Phone Number [facility] [place] [place] [address] * XR Chest PA Lateral 2 Views (08/02/2024 8:06 PM CDT) Anatomical Region Laterality Modality Body, Chest N/A Computed Radiogr aphy 08/02/2024 8:12 PM CDT Impressions 08/02/2024 8:46 PM CDT The current study is compared with the prior radiograph dated 05/19/2022. Partially imaged left ventricular assist device in place. Intact and aligned median sternotomy wires. 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 Coronary artery stenting. No pulmonary consolidation. No pleural effusion or pneumothorax. Stable cardiac and mediastinal silhouette. Dictated by: Yanni Kimble MD The radiology attending physician has personally reviewed this study, and had reviewed and/or edited this written report and agrees with it. Electronically signed by: Santy Mcqueen MD, PHD Narrative 08/02/2024 8:46 PM CDT EXAMINATION: 2 view chest radiograph Procedure Note Santy Mcqueen MD PhD - 08/02/2024 EXAMINATION: 2 view chest radiograph IMPRESSION: The current study is compared with the prior radiograph dated 05/19/2022. Partially imaged left ventricular assist device in place. Intact and aligned median sternotomy wires. 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 Coronary artery stenting. No pulmonary consolidation. No pleural effusion or pneumothorax. Stable cardiac and mediastinal silhouette. Dictated by: Yanni Kimble MD The radiology attending physician has personally reviewed this study, and had reviewed and/or edited this written report and agrees with it. Electronically signed by: Santy Mcqueen MD, PHD us Paris Aguila MD IMG XR PROCEDURES Final Res ult * CT Abdomen Pelvis W Contrast (08/02/2024 7:50 PM CDT) Anatomical Region Laterality Modality Body N/A Computed Tomogra phy 08/02/2024 8:13 PM CDT Impressions 08/03/2024 8:03 AM CDT 1. No acute intra-abdominal abnormality. 2. Similar appearance of mild soft tissue stranding along the right abdominal wall LVAD drive line. Recommend correlation with signs and symptoms of cellulitis. No organized fluid collection. Dictated by: Chris Howell MD The radiology attending physician has personally reviewed this study, and had reviewed and/or edited this written report and agrees with it. Electronically signed by: Subhash Alvares M.D. Narrative 08/03/2024 8:03 AM CDT EXAMINATION: Computed tomography of the abdomen and pelvis with intravenous contrast HISTORY: Acute abdominal pain. TECHNIQUE: Transaxial computed tomographic images of the abdomen and pelvis were obtained with intravenous contrast according to the standard protocol after the uneventful administration of 80 mL Opti-Ray 350 intravenous contrast. COMPARISON: CT 05/25/2024 FINDINGS: Partially imaged left ventricular assist device. Imaged heart size is normal. Atherosclerotic coronary artery disease. Mild bibasilar atelectasis. Stomach thickening compatible with gastritis. No suspicious liver lesion. No biliary ductal dilatation. Cholelithiasis without cholecystitis. Calcified granulomas are seen throughout the liver and spleen, the spleen is otherwise normal. The adrenal glands, and pancreas are normal. Cysts and scarring are noted throughout both kidneys with multiple nonobstructing renal calculi. Some of these cysts appear high density and may be hemorrhagic, though appear similar dating back to 05/31/2020. Urinary bladder is normal. The prostate is mildly enlarged. No free fluid or pneumoperitoneum. The abdominal aorta is atherosclerotic but nonaneurysmal. The origins of the celiac, superior mesenteric and bilateral renal arteries are patent, though narrowed at their origins due to atherosclerosis. The bowel is normal caliber without evidence of obstruction. The appendix is normal. No abdominal or pelvic lymphadenopathy. No aggressive osseous lesion. 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 There is mild persistent stranding along the right abdominal wall along the drive line, without organized fluid collection, not significantly changed compared to 05/25/2024. Procedure Note Subhash Alvares MD - 08/03/2024 EXAMINATION: Computed tomography of the abdomen and pelvis with intravenous contrast HISTORY: Acute abdominal pain. TECHNIQUE: Transaxial computed tomographic images of the abdomen and pelvis were obtained with intravenous contrast according to the standard protocol after the uneventful administration of 80 mL Opti-Ray 350 intravenous contrast. COMPARISON: CT 05/25/2024 FINDINGS: Partially imaged left ventricular assist device. Imaged heart size is normal. Atherosclerotic coronary artery disease. Mild bibasilar atelectasis. Stomach thickening compatible with gastritis. No suspicious liver lesion. No biliary ductal dilatation. Cholelithiasis without cholecystitis. Calcified granulomas are seen throughout the liver and spleen, the spleen is otherwise normal. The adrenal glands, and pancreas are normal. Cysts and scarring are noted throughout both kidneys with multiple nonobstructing renal calculi. Some of these cysts appear high density and may be hemorrhagic, though appear similar dating back to 05/31/2020. Urinary bladder is normal. The prostate is mildly enlarged. No free fluid or pneumoperitoneum. The abdominal aorta is atherosclerotic but nonaneurysmal. The origins of the celiac, superior mesenteric and bilateral renal arteries are patent, though narrowed at their origins due to atherosclerosis. The bowel is normal caliber without evidence of obstruction. The appendix is normal. No abdominal or pelvic lymphadenopathy. No aggressive osseous lesion. 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 There is mild persistent stranding along the right abdominal wall along the drive line, without organized fluid collection, not significantly changed compared to 05/25/2024. IMPRESSION: 1. No acute intra-abdominal abnormality. 2. Similar appearance of mild soft tissue stranding along the right abdominal wall LVAD drive line. Recommend correlation with signs and symptoms of cellulitis. No organized fluid collection. Dictated by: Chris Howell MD The radiology attending physician has personally reviewed this study, and had reviewed and/or edited this written report and agrees with it. Electronically signed by: Subhash Alvares M.D. Catie Moody MD IMG CT PROCEDURES Final Resu lt * CT Head WO Contrast (08/02/2024 6:01 PM CDT) Anatomical Region Laterality Modality Head and Neck N/A Computed Tomogra phy 08/02/2024 6:08 PM CDT Impressions 08/02/2024 6:31 PM CDT No acute intracranial abnormality. Dictated by: Subhash Knox MD The radiology attending physician has personally reviewed this study, and had reviewed and/or edited this written report and agrees with it. Electronically signed by: Bhupinder Ibrahim MD Narrative 08/02/2024 6:31 PM CDT EXAMINATION: CT head without contrast HISTORY: Altered mental status. TECHNIQUE: CT of the head was performed with images acquired from skull base to vertex without intravenous contrast. COMPARISON: CT of the head dated 05/25/2024. FINDINGS: Global cerebral volume loss with compensatory ex vacuo dilatation of ventricles. Severe periventricular and subcortical hypodensities are nonspecific but likely represent small vessel ischemic change. Intracranial vascular atherosclerotic calcifications. Encephalomalacia within the left occipital lobe with compensatory ex vacuo dilatation of the posterior horn of the left lateral ventricle. There is no acute intracranial hemorrhage. Ventricles are of unchanged size and morphology. No mass effect or midline shift is present. The shaffer-white matter differentiation is normal. Bilateral lens replacements. Redemonstrated left-sided glaucoma device. The visualized portions of the mastoids are normal. The visualized portions of the paranasal sinuses are normal. No fractures are identified. Debris within the external auditory canals. Procedure Note Bhupinder Ibrahim MD - 08/02/2024 EXAMINATION: CT head without contrast HISTORY: Altered mental status. TECHNIQUE: CT of the head was performed with images acquired from skull base to vertex without intravenous contrast. COMPARISON: CT of the head dated 05/25/2024. FINDINGS: Global cerebral volume loss with compensatory ex vacuo dilatation of ventricles. Severe periventricular and subcortical hypodensities are nonspecific but likely represent small vessel ischemic change. Intracranial vascular atherosclerotic calcifications. Encephalomalacia within the left occipital lobe with compensatory ex vacuo dilatation of the posterior horn of the left lateral ventricle. There is no acute intracranial hemorrhage. Ventricles are of unchanged size and morphology. No mass effect or midline shift is present. The shaffer-white matter differentiation is normal. Bilateral lens replacements. Redemonstrated left-sided glaucoma device. The visualized portions of the mastoids are normal. The visualized portions of the paranasal sinuses are normal. No fractures are identified. Debris within the external auditory canals. IMPRESSION: No acute intracranial abnormality. Dictated by: Subhash Knox MD The radiology attending physician has personally reviewed this study, and had reviewed and/or edited this written report and agrees with it. Electronically signed by: Bhupinder Ibrahim MD us Catie Moody MD IMG CT PROCEDURES Final Resu lt * Troponin I high-sensitivity series (baseline, 2hr, 4hr, 6hr) (08/02/2024 5:29 PM CDT) Trop I hs 29 <=35 ng/L Comment: Interpretive Data For further hscTnI resources including the diagnostic algorithm and an aid in interpretation, copy and paste this link: https://bjhlab.testcatalog.org/show/hsTrop-[email or web address] Current Interpretive Data last revised 2019. Blood 08/02/2024 5:29 PM CDT 08/02/2024 5:56 PM CDT us Catie Moody MD LAB BLOOD ORDERABLES Final R esult [facility] [place] [address] * (ABNORMAL) Urinalysis reflex to microscopic and culture Urine (08/02/2024 5:29 PM CDT) Color, ur Straw Yellow Clarity, ur Clear Clear [facility] Specific gravity, ur 1.022 1.003 - 1.030 [facility] pH, urine 7.5 [facility] Comment: Interpretive Data U rine pH is affected by diet, medications, systemic acid-base disturbances, and renal tubular function. pH may affect urinary stone formation. For example, urine pH below 6.0 may help reduce the tendency for calcium phosphate stones and pH greater than 6.0 may reduce the tendency for uric acid stone formation. Source: [facility] [employer] Current Interpretive Data was last revised on 2017 Protein, ur ql Trace Negative [facility] Glucose, ur ql 4+(A) Negative [facility] Ketones, ur 2+(A) Negative [facility] Bilirubin, ur Negative Negative [facility] Blood, ur Negative Negative [facility] Urobilinogen, ur <2.0 <2.0 mg/dL [facility] Nitrite, ur Negative Negative [facility] Leukocyte esterase, ur Negative Negative [facility] UA reflex comment Reflex conditions for microscopic UA and culture not met. [facility] Urine 08/02/2024 5:29 PM CDT 08/02/2024 11:27 PM CDT Narrative [facility] - 08/03/2024 12:06 AM CDT If patient unable to urinate, straight cath Paris Aguila MD LAB MICROBIOLOGY - GENERAL ORDERABLES Final Result Performing Organization Address City/[facility] Co de Phone Number [facility] [place] [address] * eGFR (08/02/2024 4:36 PM CDT) Pathologist [facility] [place] eGFR 85 >=60 mL/min/1. 73 m2 Comment: Interpretive Data Reference Interval Normal >/= 90 mL/min/1.73m2 Mildly decreased* 60 - 89 mL/min/1.73m2 Mildly to moderately decreased 45 - 59 mL/min/1.73m2 Moderately to severely decreased 30 - 44 mL/min/1.73m2 Severely decreased 15 - 29 mL/min/1.73m2 Kidney Failure < 15 mL/min/1.73m2 *Relative to young adult level Estimated glomerular filtration rate is determined by the 2020 CKD-EPI equation recommended by the National Kid[employer] (A Unifying Approach to GFR Estimation: Recommendations of the NKF-ASK Task Force on Reassessing the Inclusion of Race in Diagnosing Kidney Disease, JASN 2020). The CKD-EPI equation should not be used for patients with unstable renal function and has not been validated in children and those over 70. Current interpretive data was last reviewed 2021. Blood 08/02/2024 4:36 PM CDT 08/02/2024 4:55 PM CDT Paris Aguila MD LAB BLOOD ORDERABLES Final Result Performing Organization Address City/[facility]/ZIP Co de Phone Number [facility] [place] [address] * (ABNORMAL) Differential, auto (08/02/2024 4:36 PM CDT) Pathologist [facility] [place] Neutrophil abs 9.6(H) 1.5 - 6.5 K/cumm Imm gran abs 0.1 0.0 - 0.1 K/cumm [facility] Lymphocyte abs 0.5(L) 0.8 - 3.3 K/cumm [facility] Monocyte abs 0.4 0.2 - 0.8 K/cumm [facility] Eosinophil abs 0.0 0.0 - 0.5 K/cumm [facility] Basophil abs 0.1 0.0 - 0.1 K/cumm [facility] Neutrophil pct 89.6 % [facility] Comment: Interpretive Data Percent cell count reference ranges are not reported, since discordance with absolute values may lead to misinterpretation of CBC data. Current Interpretive Data was last revised on 2017. Imm gran pct 0.6 % [facility] Comment: Interpretive Data Percent cell count reference ranges are not reported, since discordance with absolute values may lead to misinterpretation of CBC data. Current Interpretive Data was last revised on 2017. Lymphocyte pct 4.7 % [facility] Comment: Interpretive Data Percent cell count reference ranges are not reported, since discordance with absolute values may lead to misinterpretation of CBC data. Current Interpretive Data was last revised on 2017. Monocyte pct 4.0 % [facility] Comment: Interpretive Data Percent cell count reference ranges are not reported, since discordance with absolute values may lead to misinterpretation of CBC data. Current Interpretive Data was last revised on 2017. Eosinophil pct 0.4 % [facility] Comment: Interpretive Data Percent cell count reference ranges are not reported, since discordance with absolute values may lead to misinterpretation of CBC data. Current Interpretive Data was last revised on 2017. Basophil pct 0.7 % [facility] Comment: Interpretive Data Percent cell count reference ranges are not reported, since discordance with absolute values may lead to misinterpretation of CBC data. Current Interpretive Data was last revised on 2017. Blood 08/02/2024 4:36 PM CDT 08/02/2024 4:55 PM CDT us Miryam Rodriguez MD LAB BLOOD ORDERABLES Fin al Result [facility] [place] [address] * (ABNORMAL) Pro B-type natriuretic peptide (08/02/2024 4:36 PM CDT) NT-proBNP 756(H) <=450 pg/mL Comment: Interpretive Comments: A. Dyspnea in Acute Care Setting All Ages: < 300 pg/ml, acute heart failure unlikely. < 50 yrs: 300 - 450 pg/ml, further investigation warranted. > 450 pg/ml, acute heart failure likely. 50 - 74 yrs: 300 - 900 pg/ml, further investigation warranted. > 900 pg/ml, acute heart failure likely . > or = 75 yrs: 450 - 1800 pg/ml, further investigation warranted. > 1800 pg/ml, acute heart failure likely. B. Non-acute Setting < 75 yrs < 125 pg/ml, rules out heart failure. > or = 125 pg/ml, further investigation warranted. > or = 75 yrs < 450 pg/ml, rules out heart failure. > or = 450 pg/ml, further investigation warranted. - Knowledge of each individual patient's NT-proBNP range may be more useful than using similar cut-points for every patient. Please note that marked elevations in NT-proBNP levels may be observed in state other than Left Ventricular Congestive Failure, including: acute coronary syndromes, right heart strain/failure (including pulmonary embolism and cor pulmonale), critical illness, renal failure, as well as advanced age. - References: 1. Eric MENDOZA et.al. Eur Heart J. 2006:27:330-337. 2. Good RW, Renea AM. J. AM Omi Cardiol: Cardiovasc Imag. 2009;2: 216- 225. Interpretive Data Last Revised Date: 2018. Blood 08/02/2024 4:36 PM CDT 08/02/2024 4:44 PM CDT us Paris Aguila MD LAB BLOOD ORDERABLES Final Result [facility] [place] [address] * Thyroid Function [place] (08/02/2024 4:36 PM CDT) [facility] TSH 2.70 0.30 - 4.20 mcIUnit/mL Blood 08/02/2024 4:36 PM CDT 08/02/2024 4:44 PM CDT us Catie Moody MD LAB BLOOD ORDERABLES Final R esult [facility] [place] [address] * Respiratory pathogen panel Nasopharyngeal (08/02/2024 4:36 PM CDT) [facility] Influenza A RNA Not Detected Not Detected Influenza B RNA Not Detected Not Detected [facility] [facility] RSV RNA Not Detected Not Detected [facility] COVID-19 RNA Not Detected Not Detected [facility] Coronavirus 229E RNA Not Detected Not Detected [facility] Coronavirus HKU1 RNA Not Detected Not Detected [facility] Coronavirus NL63 RNA Not Detected Not Detected [facility] Coronavirus OC43 RNA Not Detected Not Detected [facility] Adenovirus DNA Not Detected Not Detected [facility] Metapneumovirus RNA Not Detected Not Detected [facility] Rhinovirus/Enterov irus RNA Not Detected Not Detected [facility] Parainfluenza 1 RNA Not Detected Not Detected [facility] Parainfluenza 2 RNA Not Detected Not Detected [facility] Parainfluenza 3 RNA Not Detected Not Detected [facility] Parainfluenza 4 RNA Not Detected Not Detected [facility] B. pertussis DNA Not Detected Not Detected [facility] B. parapertussis DNA Not Detected Not Detected [facility] C. pneumoniae DNA Not Detected Not Detected [facility] M. pneumoniae DNA Not Detected Not Detected [facility] Nasopharyngeal 08/02/2024 4: 36 PM CDT 08/02/2024 6:04 PM CDT Narrative [facility] - 08/02/2024 7:26 PM CDT Is the Patient experiencing symptoms consistent with COVID?->Yes Surveillance testing for transplant patient?->No Interpretive Data The [employer] FilmArray Respiratory Panel (RP2.1) assay is a multiplexed real-time PCR based nucleic acid test capable of simultaneous qualitative detection and identification of multiple respiratory viral and bacterial nucleic acids, including SARS Coronavirus 2 (the causative agent of COVID-19). The following bacteria, viruses and virus subtypes can be identified using the FilmArray RP2.1 assay: Bordetella pertussis, Bordetella parapertussis, Chlamydia pneumoniae, Mycoplasma pneumoniae, Adenovirus, SARS Coronavirus 2, seasonal coronaviruses (Coronavirus HKU1, Coronavirus NL63, Coronavirus 229E, and Coronavirus OC43), Influenza A, Influenza A subtype H1, Influenza A subtype H3, Influenza A subtype 2009 H1, Influenza B, Metapneumovirus, Parainfluenza 1, Parainfluenza 2, Parainfluenza 3, Parainfluenza 4, RSV, Rhinovirus/Enterovirus. Due to the genetic similarity between human Rhinovirus and Enterovirus, the FilmArray RP2.1 assay cannot reliably differentiate them. Coronavirus OC43 may cross-react with some isolates of Coronavirus HKU1. A dual positive result may be due to cross-reactivity or may indicate a co- infection. The detection and identification of specific viral and bacterial nucleic acids from individuals exhibiting signs and symptoms of a respiratory infection aids in the diagnosis of respiratory infection if used in conjunction with other clinical and epidemiological information. The results of this test should not be used as the sole basis for diagnosis, treatment, or other management decisions. Negative results in the setting of a respiratory illness may be due to infection with pathogens that are not detected by this test. Positive results do not rule out infection/co-infection with other organisms. The agent(s) detected by the FilmArray RP2.1 may not be the definite cause of disease. Additional testing (lab, imaging, etc.) may be necessary when evaluating a patient with possible respiratory tract infection. The FilmArray RP2.1 assay has FDA clearance for testing of GAS SINGER swabs. The performance of additional specimen types has been assessed by the performing laboratory. The performance characteristics of this assay have been determined by [facility] Molecular Infectious Disease Laboratory. Current interpretive data was last revised on 22. us Catie Moody MD LAB MICROBIOLOGY - GENERAL O RDERABLES Final Result [facility] [place] [address] * (ABNORMAL) CBC with auto differential (08/02/2024 4:36 PM CDT) WBC 10.7(H) 3.8 - 9.9 K/cumm Hgb 15.2 13.0 - 17.5 g/dL [facility] Hct 46.6 38.9 - 50.3 % [facility] Plt 247 150 - 400 K/cumm [facility] MPV 10.0 9.1 - 12.3 fL [facility] RBC 5.44 4.30 - 5.80 M/cumm [facility] MCV 85.7 81.3 - 96.4 fL [facility] MCH 27.9 27.1 - 33.3 pg [facility] MCHC 32.6 32.3 - 35.7 g/dL [facility] RDW CV 16.0(H) 11.1 - 14.9 % [facility] RDW SD 48.3(H) 35.7 - 48.1 fL [facility] NRBC abs 0.00 0.00 - 0.01 K/cumm [facility] Blood 08/02/2024 4:36 PM CDT 08/02/2024 4:55 PM CDT Paris Aguila MD LAB BLOOD ORDERABLES Final Result [facility] [place] [address] * Blood culture Blood Peripheral (08/02/2024 4:36 PM CDT) Pathologist [facility] Report Final Report: No growth Blood (Peripheral) 08/02/2024 4:36 PM CDT 08/02/2024 5:11 PM CDT Narrative [facility] - 08/07/2024 7:00 AM CDT From a different site than #1. Draw Blood cultures before administration of Antibiotics Collection->Peripheral 1. Blood cultures are incubated for 4 days on a continuously monitored blood culture system. The first report of a negative culture is issued within 24 hours of receipt of the specimen in the laboratory. 2. Positive culture results are reported as soon as they are detected. 3. The most important factor for detection of microbes in the setting of bloodstream infection is the volume of blood submitted for culture. Failure to collect an optimal blood volume can result in false negative blood cultures. 4. For pediatric patients, the recommended blood volume to collect follows a weight based strategy. See the electronic test catalog for collection instructions. 5. For positive blood cultures, a rapid molecular test may be performed for organism identification using the katie ePlex blood culture identification panel for gram positive (BCID-GP) and gram negative (BCID-GN) organisms. This nucleic acid amplification test detects microbial DNA in positive blood culture broth. This assay has been cleared by the [place] Food and Drug Administration and its performance characteristics have been verified by the [facility] Microbiology Laboratory. For questions about this culture, contact the Microbiology Laboratory at [phone]. Interpretive data was last revised on 24. us Catie Moody MD LAB MICROBIOLOGY - GENERAL O RDERABLES Final Result [facility] [place] [address] * Blood culture Blood Peripheral (08/02/2024 4:36 PM CDT) Report Final Report: No growth Blood (Peripheral) 08/02/2024 4:36 PM CDT 08/02/2024 4:45 PM CDT Masha FELDMAN [facility] - 08/07/2024 7:00 AM CDT Draw Blood cultures before administration of Antibiotics Collection->Peripheral 1. Blood cultures are incubated for 4 days on a continuously monitored blood culture system. The first report of a negative culture is issued within 24 hours of receipt of the specimen in the laboratory. 2. Positive culture results are reported as soon as they are detected. 3. The most important factor for detection of microbes in the setting of bloodstream infection is the volume of blood submitted for culture. Failure to collect an optimal blood volume can result in false negative blood cultures. 4. For pediatric patients, the recommended blood volume to collect follows a weight based strategy. See the electronic test catalog for collection instructions. 5. For positive blood cultures, a rapid molecular test may be performed for organism identification using the katie ePlex blood culture identification panel for gram positive (BCID-GP) and gram negative (BCID-GN) organisms. This nucleic acid amplification test detects microbial DNA in positive blood culture broth. This assay has been cleared by the [place] Food and Drug Administration and its performance characteristics have been verified by the [facility] Microbiology Laboratory. For questions about this culture, contact the Microbiology Laboratory at [phone]. Interpretive data was last revised on 24. Catie Moody MD LAB MICROBIOLOGY - GENERAL O RDERABLES Final Result Performing Organization Address [facility] Co de Phone Number [facility] [place] [place] [address] * (ABNORMAL) aPTT (08/02/2024 4:36 PM CDT) aPTT 40(H) 28 - 38 sec Comment: Interpretive Data Heparin therapeutic range: 66.0 - 100.0 seconds. Range based on correlation with therapeutic heparin activity range of 0.3 - 0.7 Units/mL. Current interpretive data was last revised on 2023. Blood 08/02/2024 4:36 PM CDT 08/02/2024 4:51 PM CDT Catie Moody MD LAB BLOOD ORDERABLES Final R esult Performing Organization Address [facility] Co de Phone Number [facility] [place] [address] * (ABNORMAL) Protime-INR (08/02/2024 4:36 PM CDT) PT 19.2(H) 9.7 - 13.0 sec INR 1.76(H) 0.90 - 1.20 [facility] Comment: Interpretive data Oral anticoagulant therapeutic ranges: Venous thromboembolism prophylaxis or treatment: 2.0-3.0 CARDIOLOGY Standard range: 2.0-3.0 High-intensity range: 2.5-3.5 Refer to indication-specific guidelines for appropriate target ranges for prosthetic heart valve replacement. Current interpretive data was last revised on 2019. Blood 08/02/2024 4:36 PM CDT 08/02/2024 4:51 PM CDT Catie Moody MD LAB BLOOD ORDERABLES Final R esult Performing Organization Address [facility] de Phone Number [facility] [place] [address] * (ABNORMAL) Hemoglobin A1c (08/02/2024 4:36 PM CDT) Hgb A1C 9.5(H) 4.0 - 5.6 % Estimated Average Glucose 226 mg/dL [facility] Comment: The ADA recommends reporting an estimated Average Glucose (eAG) with all Hemoglobin A1c results using the equation derived from a study of 507 normal and diabetic adults. Minority populations were underrepresented and children were not included. (Diabetes Care 2020; 43(S1): S66-S76). The eAG is not equivalent to a fasting glucose. Blood 08/02/2024 4:36 PM CDT 08/02/2024 5:00 PM CDT us Thompson Light MD PhD LAB BLOOD ORDERABL ES Final Result Performing Organization Address [facility] Co de Phone Number [facility] [place] [address] * (ABNORMAL) Comprehensive metabolic panel (08/02/2024 4:36 PM CDT) Sodium 137 135 - 145 mmol/L Potassium, pl 4.2 3.3 - 4.9 mmol/L [facility] Chloride 94(L) 97 - 110 mmol/L [facility] CO2 24 22 - 32 mmol/L [facility] Anion gap 19(H) 2 - 15 mmol/L [facility] BUN 15 6 - 25 mg/dL [facility] Creatinine 0.91 0.80 - 1.30 mg/dL [facility] Glucose 349(H) 70 - 199 mg/dL [facility] Comment: Interpretive Data Fasting glucose >/= 126 mg/dl is diagnostic for diabetes. Fasting is defined as no caloric intake for at least 8 hours. Fasting glucose between 100 mg/dl to 125 mg/dl is diagnostic of prediabetes. In a patient with classic symptoms of hyperglycemia or hyperglycemic crisis, a random glucose >/= 200 mg/dl is diagnostic for diabetes. In the absence of unequivocal hyperglycemia, results should be confirmed by repeat testing. The classification and Diagnosis of Diabetes Diabetes Care 2021; 46: S19-S40. Current interpretive data was last revised 2022. Calcium 10.7(H) 8.5 - 10.3 mg/dL [facility] Bilirubin, total 0.6 0.1 - 1.2 mg/dL [facility] Protein, pl 8.6(H) 6.5 - 8.5 g/dL [facility] Albumin 4.1 3.5 - 5.0 g/dL [facility] Alk phos 151(H) 40 - 130 Units/L [facility] ALT 17 7 - 55 Units/L [facility] AST 29 10 - 50 Units/L [facility] Blood 08/02/2024 4:36 PM CDT 08/02/2024 4:44 PM CDT Paris Aguila MD LAB BLOOD ORDERABLES Final Result [facility] Department [place] [address] * (ABNORMAL) ECG 12-LEAD (08/02/2024 3:57 PM CDT) Narrative [facility] - 08/02/2024 3:57 PM CDT Paris Aguila MD 08/02/2024 3:58 PM ECG 12 lead Date/Time: 08/02/2024 3:57 PM Performed by: Paris Aguila MD Authorized by: Yonathan Hawley MD Quality: Tracing quality: Limited by artifact Rate: ECG rate: 95 ECG rate assessment: normal Rhythm: Rhythm: atrial fibrillation Ectopy: Ectopy: none QRS: QRS axis: Normal QRS intervals: Wide Conduction: Conduction: abnormal Abnormal conduction: non-specific intraventricular conduction delay ST segments: ST segments: Abnormal Elevation: AVR and aVL Depression: II, III and aVF T waves: T waves: non-specific Previous ECG: Previous ECG: Compared to current Similarity: No change Interpretation: Interpretation: abnormal Recommended Follow-up: Recommended follow up: cardiac workup and further workup in the ED Procedure Note Paris Aguila MD - 08/02/2024 3:57 PM CDT Procedure ECG 12 lead Date/Time: 08/02/2024 3:57 PM Performed by: Paris Aguila MD Authorized by: Yonathan Hawley MD Quality: Tracing quality: Limited by artifact Rate: ECG rate: 95 ECG rate assessment: normal Rhythm: Rhythm: atrial fibrillation Ectopy: Ectopy: none QRS: QRS axis: Normal QRS intervals: Wide Conduction: Conduction: abnormal Abnormal conduction: non-specific intraventricular conduction delay ST segments: ST segments: Abnormal Elevation: AVR and aVL Depression: II, III and aVF T waves: T waves: non-specific Previous ECG: Previous ECG: Compared to current Similarity: No change Interpretation: Interpretation: abnormal Recommended Follow-up: Recommended follow up: cardiac workup and further workup in the ED Paris Aguila MD 08/02/24 1558 Paris Aguila MD ECG ORDERABLES Final Resul t [facility] * (ABNORMAL) POCT glucose (08/02/2024 3:54 PM CDT) Glucose, POC 332(H) 70 - 199 mg/dL Blood 08/02/2024 3:54 PM CDT 08/02/2024 3:54 PM CDT us Notinfile Unknown LAB POCT ORDERABLES - DEVICE F inal Result [facility] [place] [address] * (ABNORMAL) Protime-INR (08/01/2024) INR 1.90(A) 0.90 - 1.10 EXTERNAL LAB Blood us Historical Provider MD LAB BLOOD ORDERABLES Paulette l Result EXTERNAL LAB * (ABNORMAL) Lipid panel (05/25/2024 10:48 AM GAS FITTER) Cholesterol 117 30 - 199 mg/dL Comment: Interpretive Data Ages < or = 19 years Acceptable: <170 mg/dL Borderline high: 170-199 mg/dL High: >or= 200 mg/dL Ages > or = 20 years Desirable: <200 mg/dL Borderline high: 200-239 mg/dL High: >or= 240 mg/dL Literature References: 1. Expert Panel on Integrated Guidelines for Cardiovascular Health and Risk Reduction in Children and Adolescents. Pediatrics 2011;128:S213 2. NCEP Expert Panel. Circulation 2004;110:227 Current Interpretive Data was last revised on 2018. Triglycerides 159(H) <=149 mg/dL [facility] Comment: Interpretive Data Ages < or = 9 years Acceptable: <75 mg/dL Borderline high: 75-99 mg/dL High: >or= 100 mg/dL Ages 10 to 20 years Acceptable: <90 mg/dL Borderline high: 90-129 mg/dL High: >or= 130 mg/dL Ages > or = 20 years Desirable: <150 mg/dL Borderline high: 150-199 mg/dL High: 200-499 mg/dL Very high: >or= 499 mg/dL Literature References: 1. Expert Panel on Integrated Guidelines for Cardiovascular Health and Risk Reduction in Children and Adolescents. Pediatrics 2011;128:S213 2. NCEP Expert Panel. Circulation 2004;110:227 Current Interpretive Data was last revised on 2018. HDL 38(L) >=40 mg/dL [facility] Comment: Interpretive Data Ages < or = 19 years Acceptable: >45 mg/dL Borderline low: 40-45 mg/dL Low: <40 mg/dL Ages > or = 20 years Desirable: >or= 60 mg/dL Low: <40 mg/dL Literature References: 1. Expert Panel on Integrated Guidelines for Cardiovascular Health and Risk Reduction in Children and Adolescents. Pediatrics 2011;128:S213 2. NCEP Expert Panel. Circulation 2004;110:227 Current Interpretive Data was last revised on 2018. LDL, calculated 52 <=129 mg/dL [facility] Comment: Interpretive Data Ages < or = 19 years Acceptable: <110 mg/dL Borderline high: 110-129 mg/dL High: >or= 130 mg/dL Ages > or = 20 years Optimal: <100 mg/dL Near optimal: 100-129 mg/dL Borderline high: 130-159 mg/dL High: >160 mg/dL Calculated using the Ambrocio LDL-C estimating equation. This equation was implemented on 2024. Prior to this date LDL-C was estimated using the Friedewald equation. Literature References: 1. Expert Panel on Integrated Guidelines for Cardiovascular Health and Risk Reduction in Children and Adolescents. Pediatrics 2011;128:S213 2. NCEP Expert Panel. Circulation 2004;110:227 3. Ambrocio Berry et al. GEORGIE Cardiol. 2019September 15;5(5):540-548. doi: [email or web address] Current Interpretive Data was last revised on 2024. Non-HDL Cholesterol 79 mg/dL [facility] Comment: Interpretive Data Ages < or = 19 years Acceptable: <120 mg/dL Borderline high: 120-144 mg/dL High: >145 mg/dL Ages > or = 20 years When triglycerides are >200 mg/dL, Non-HDL cholesterol is a secondary target of therapy with treatment goals that are 30 mg/dL greater than the LDL cholesterol target. Literature References: 1. Expert Panel on Integrated Guidelines for Cardiovascular Health and Risk Reduction in Children and Adolescents. Pediatrics 2011;128:S213 2. NCEP Expert Panel. Circulation 2004;110:227 Current Interpretive Data was last revised on 2018. Chol/HDL ratio 3 [facility] Blood 05/25/2024 10:4 8 AM GAS FITTER 05/25/2024 11:40 AM GAS FITTER Narrative [facility] - 05/25/2024 4:05 PM GAS FITTER reflex us Thompson Light MD PhD LAB BLOOD ORDERABL ES Final Result [facility] [place] [address] * Diabetic Eye Exam (10/28/2022 4:10 PM CDT) us Historical Provider HEALTH MAINTENANCE Final Result * Albumin Creatinine Ratio, Urine (01/02/2021) Urine us Robert Gao MD LAB URINE ORDERABLES Paulette l Result EXTERNAL LAB from Last 3 Months or Most Recently Relevant to Health Maintenance Insurance MEDICARE [facility] MEDICARE SUPPLEMENT [facility]ICARE [facility] MEDICARE MEDICARE BLUE CROSS MEDICARE SUPPLEMENT Advance Directives For more information, please contact: [phone] * LIMITED - No CPR (Latest Code Status on File) Date Activated Date Inactivated Comments 09/12/2024 8:21 PM 09/21/2024 12:40 AM Question Answer Comments Provide aggressive medical m anagement before a full cardiopulmonary arrest occurs. Use antibiotics, IV Fluids, and medical treatment unless specifically selected below: No intubation * LIMITED - No CPR Date Activated Date Inactivated Comments 08/09/2024 12:29 PM 08/15/2024 8:34 PM Question Answer Comments Provide aggressive medical m anagement before a full cardiopulmonary arrest occurs. Use antibiotics, IV Fluids, and medical treatment unless specifically selected below: No intubation Discussed with the following attending physician : Tessa * LIMITED - No CPR Date Activated Date Inactivated Comments 05/25/2024 1:09 PM 06/08/2024 10:18 PM Question Answer Comments Provide aggressive medical m anagement before a full cardiopulmonary arrest occurs. Use antibiotics, IV Fluids, and medical treatment unless specifically selected below: No intubation Discussed with the following attending physician : Dr. Stephanie calloway * LIMITED - No CPR Date Activated Date Inactivated Comments 05/25/2024 1:07 PM 05/25/2024 1:09 PM Question Answer Comments Provide aggressive medical m anagement before a full cardiopulmonary arrest occurs. Use antibiotics, IV Fluids, and medical treatment unless specifically selected below: No intubation Discussed with the following attending physician : Stephanie Calloway * Full Code Date Activated Date Inactivated Comments 05/25/2024 7:32 AM 05/25/2024 1:07 PM Care Teams Precision L[employer] Generator Relationship Specialty Start Date End Date Thompson Napoles MD [address] [facility] [address] [place] [address] PCP - General Transplant 08/02/24 Darlin Diaz, RN [address] [facility] [address] [place] [address] VAD Coordinator 10/19/17 Aicha Walker Primary Gypsum Calciner 09/19/24
--- OUTSIDE RECORDS SUMMARY | 2024-10-31 18:18 | XMS_ITS | Clinical Summary ---
Author Organization [facility] [address] Address [address] [place] [id number] Care Team Providers Care Production Engineer Track Name Role Phone Darlin Diaz RN Unavailable [phone] Thompson Napoles MD Primary Care Provider + Aicha Walker Unavailable Unavailable Allergies Active Allergy Reactions Criticality Noted Date [...] 1 tablet (100 mcg total) by mouth rn transitional care before breakfast 90 tablet 3 03/29/20 24 Active pen needle, diabetic (BD Ultra-Fine Short Pen Needle) 31 gauge x 5/16 needleIndicati ons:Type 2 diabetes mellitus with other specified complication, with long-term current use of insulin (HCC) Use to inject 4 times daily as directed. 200 each 3 03/29/20 24 Active doxycycline (MONODOX) 100 mg capsuleIndicat ions:Abdominal /Pelvic Infection,Rail Switchman gato Suppression Take 1 capsule (100 mg [...] mouth 2 (two) times a day 09/21/19 Active polyethylene glycol (MIRALAX) 17 gram packetIndicati ons:constipati on Take 1 packet (17 g total) by mouth daily as needed for constipation 09/21/19 25 Active octreotide LAR (SandoSTATIN LAR) 20 mg suspension,ext ended rel recon Inject 1 each (20 mg total) into the muscle as instructed every 30 (thirty) days last dose given on 09/16/24 09/21/19 25 Active mirtazapine (REMERON) 30 mg tablet TAKE 1 TABLET(30 MG) BY MOUTH EVERY NIGHT 90 tablet 3 10/17/19 25 Active warfarin (COUMADIN) 3 mg tabletIndicati ons:Left Ventricular Assist Device,goal 1.8-2.2 Take 2mg daily 10/19/19 25 Active semaglutide (OZEMPIC) 0.25 mg or 0.5 mg (2 mg/3 mL) pen injector injectionIndic ations:Type 2 diabetes mellitus with hyperglycemia, with long-term current use of insulin (HCC) Inject 0.5 mg under the skin once a week 3 mL 11/01/19 25 Active Jardiance 10 mg tabletIndicati ons:type 2 [...] tablets (4.5 mg total) by mouth daily 09/21/19 25 2024 Discontinued semaglutide (Ozempic) 0.25 mg or 0.5 mg(2 mg/1.5 mL) pen injector injection Inject 0.25 mg under the skin once a week 1.5 mL 3 11/01/19 25 2024 Discontinued(A lternate therapy) Active [...] AMS. Seen by neurology, recommended referral to [facility] [place]. -[facility] -PT/OT [...] AMS. Seen by neurology, recommended referral to [facility] [place]. -ongoing outpatient evaluation in [facility] -PT/OT recommendations appreciated Assessment & Plan (09/17/2024 7:16 AM CDT): Presenting with weakness from assisted living facility. Daughter reports facility noted weakness and intermittent confusion with concurrent drainage from driveline site which appeared purulent. Extensive workup during previous admission for AMS. Seen by neurology, recommended referral to [facility] [place]. -ongoing outpatient evaluation in [facility] -PT/OT Assessment & Plan (09/16/2024 10:25 AM CDT): Presenting with weakness from assisted living facility. Daughter reports facility noted weakness and intermittent confusion with concurrent drainage from driveline site which appeared purulent. Extensive workup during previous admission for AMS. Seen by neurology, recommended referral to [facility]. -ongoing outpatient evaluation in [facility] -PT/OT Assessment & Plan (09/15/2024 10:00 AM CDT): Presenting with weakness from assisted living facility. Daughter reports facility noted weakness and intermittent confusion with concurrent drainage from driveline site which appeared purulent. Extensive workup during previous admission for AMS. Seen by neurology, recommended referral to [facility]. -infectious workup pending -ongoing outpatient evaluation in [facility] -PT/OT Assessment & Plan (09/14/2024 11:20 AM CDT): Presenting with weakness from assisted living facility. Daughter reports facility noted weakness and intermittent confusion with concurrent drainage from driveline site which appeared purulent. Extensive workup during previous admission for AMS. Seen by neurology, recommended referral to [facility]. -infectious workup pending -ongoing outpatient evaluation -PT/OT Assessment & Plan (09/13/2024 11:38 AM CDT): Presenting with weakness from assisted living facility. Daughter reports facility noted weakness and intermittent confusion with concurrent drainage from driveline site which appeared purulent. Extensive workup during previous admission for AMS. Seen by neurology, recommended referral to [facility]. -infectious workup pending -ongoing outpatient evaluation -PT/OT Moderate protein-calorie malnutrition 08/11/2024 Constipation 06/05/2024 Assessment & Plan (06/07/2024 10:16 AM GAS JOCKEY): -resolved constipation issues after getting cottonseed enema on06/05 -continue PRN dulcolax suppository PRN, colace 100 mg daily, miralax daily Urinary retention 06/05/2024 Assessment & Plan (06/08/2024 2:48 PM GAS JOCKEY): Patient pulled his corbin out last week -06/05 had urinary retention and corbin placed and started on Flomax 0.4 mg -culture negative -will need a voiding trial Assessment & Plan (06/07/2024 10:39 AM GAS JOCKEY): Patient pulled his corbin out last week -06/05 had urinary retention and corbin placed and started on Flomax 0.4 mg -culture negative Hematuria 05/28/2024 Assessment & Plan (06/08/2024 2:56 PM GAS JOCKEY): Patient previously having hematuria r/t trauma from corbin placement -Patient denies urinary symptoms -Hgb stable -currently resolved Assessment & Plan (06/07/2024 10:16 AM GAS JOCKEY): Patient previously having hematuria r/t trauma from corbin placement -Patient denies urinary symptoms -Hgb stable -currently resolved Assessment & Plan (06/03/2024 11:00 AM GAS JOCKEY): Patient previously having hematuria r/t trauma from corbin placement -Patient denies urinary symptoms -Hgb stable -INR 2.45 Assessment & Plan (06/02/2024 10:16 AM GAS JOCKEY): Patient previously having hematuria r/t trauma from corbin placement -Patient denies urinary symptoms -Hgb 12.6 on AM labs, slightly lower today, CTM -d/c heparin gtt, INR 1.9 Assessment & Plan (05/29/2024 1:00 PM GAS JOCKEY): Patient having hematuria today likely r/t trauma from corbin placement yesterday -Patient denies urinary symptoms -Hgb 13.8 on AM labs-stable -Heparin gtt now resumed-continue Assessment & Plan (05/28/2024 4:34 PM GAS JOCKEY): Patient having hematuria today likely r/t trauma [...] Assessment & Plan (06/08/2024 2:55 PM GAS JOCKEY): Admitted with AMS. On chronic amoxicillin for [...] Assessment & Plan (06/07/2024 10:18 AM GAS JOCKEY): Admitted with AMS. On chronic amoxicillin for [...] Assessment & Plan (06/05/2024 12:40 PM GAS JOCKEY): Admitted with AMS. On chronic amoxicillin for [...] Assessment & Plan (06/03/2024 11:05 AM GAS JOCKEY): Admitted with confusion. 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 -UA negative -Blood cultures (05/25) no growth -Wound culture with MRSA -CT of CAP notable for stranding to driveline -No plan for surgical intervention -Vanc 05/25-05/30, 05/31 Started daptomycin 8 mg/kg Q24 hours. -plan [...] Assessment & Plan (06/02/2024 10:30 AM GAS JOCKEY): Admitted with confusion. 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 -UA negative -Blood cultures (05/25) no growth -Wound culture with MRSA -CT of CAP notable for stranding to driveline -No plan for surgical intervention -Vanc 05/25-05/30, 05/31 Started daptomycin 8 mg/kg Q24 hours. -plan [...] Assessment & Plan (05/29/2024 12:59 PM GAS JOCKEY): Admitted with confusion. On chronic amoxicillin for [...] is a medication he can receive at SNF -He will need at least 6 weeks [...] Assessment & Plan (05/28/2024 4:34 PM GAS JOCKEY): Admitted with confusion. On chronic amoxicillin for [...] Assessment & Plan (05/27/2024 11:50 AM GAS JOCKEY): Admitted with confusion. On chronic amoxicillin for [...] Assessment & Plan (05/26/2024 10:48 AM GAS JOCKEY): Admitted with confusion. On chronic amoxicillin for [...] would be outpatient, they made referral to [facility] [place], recommend discontinuing mirtazapine, avoiding home lorazepam and [...] would be outpatient, they made referral to [facility] [place], recommend discontinuing mirtazapine, avoiding home lorazepam and [...] would be outpatient, they made referral to [facility] [place], recommend discontinuing mirtazapine, avoiding home lorazepam and [...] would be outpatient, they made referral to [facility] [place], recommend discontinuing mirtazapine, avoiding home lorazepam and [...] would be outpatient, they made referral to [facility], recommend discontinuing mirtazapine, avoiding home lorazepam and [...] would be outpatient, they made referral to [facility] [place], recommend discontinuing mirtazapine, avoiding home lorazepam and [...] Assessment & Plan (06/08/2024 2:50 PM GAS JOCKEY): New confusion and delirium 2-3 days prior [...] precautions -PT/OT -currently plan to discharge to [facility] today Assessment & Plan (06/06/2024 10:00 AM GAS JOCKEY): New confusion and delirium 2-3 days prior [...] -PT/OT -currently referrals have been sent to [facility] for care home and rehabilitation - current assisted living facility does not think he can come back related to being 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 & Plan (06/05/2024 12:34 PM GAS JOCKEY): New confusion and delirium 2-3 days prior [...] ill to return, pt's only option for superintendent terminal care is [facility]-referrals sent by [facility] Assessment & Plan (06/03/2024 10:58 AM GAS JOCKEY): New confusion and delirium 2-3 days prior [...] Assessment & Plan (06/02/2024 10:07 AM GAS JOCKEY): New confusion and delirium 2-3 days prior [...] Assessment & Plan (05/29/2024 12:59 PM GAS JOCKEY): New confusion and delirium for the past [...] Assessment & Plan (05/28/2024 4:31 PM GAS JOCKEY): New confusion and delirium for the past [...] Assessment & Plan (05/27/2024 9:45 AM GAS JOCKEY): New confusion and delirium for the past [...] Assessment & Plan (05/26/2024 10:53 AM GAS JOCKEY): New confusion and delirium for the past [...] Assessment & Plan (06/05/2024 12:40 PM GAS JOCKEY): Macular-papular rash to angie area -Continue external urinary collection device -Leave groin open to air, exudry -Turn q 2hrs -Antifungal cream to rash Assessment & Plan (06/03/2024 11:15 AM GAS JOCKEY): Macular-papular rash to angie area -continue external urinary collection device -Leave groin open to air, exudry -Turn q 2hrs -Antifungal cream to rash Assessment & Plan (06/02/2024 10:32 AM GAS JOCKEY): Macular-papular rash to angie area -continue external urinary collection device -Leave groin open to air, exudry -Turn q 2hrs -Antifungal cream to rash Assessment & Plan (05/25/2024 2:52 PM GAS JOCKEY): Macular-papular rash to groin at diaper area [...] Assessment & Plan (05/27/2022 10:15 AM GAS JOCKEY): -Symptomatic hypotension 1/4 -S/p IV fluids with improvement -Losartan 25 mg and isosorbide d/c'd 1/ Assessment & Plan (05/26/2022 2:38 PM GAS JOCKEY): Symptomatic hypotension 1/4 S/p IV fluids Discontinue losartan to 25 mg and isosorbide 2/2 low BP Assessment & Plan (05/25/2022 10:23 AM GAS JOCKEY): Symptomatic hypotension 1/4 S/p IV fluids Holding losartan and isosorbide BP stable off anti-hypertensives Assessment & Plan (05/24/2022 11:19 AM GAS JOCKEY): Symptomatic hypotension 1/4 S/p IV fluids Holding losartan and isosorbide BP stable off anti-hypertensives Assessment & Plan (05/23/2022 4:42 PM GAS JOCKEY): Symptomatic hypotension 1/4 Received IV fluids Holding losartan and isosorbide BP stable off anti-hypertensives Assessment & Plan (05/22/2022 3:54 PM GAS JOCKEY): Symptomatic hypotension yesterday afternoon Received IV fluids Holding losartan and isosorbide BP improved today Delirium 05/19/2022 Assessment & Plan (05/31/2024 10:53 AM GAS JOCKEY): Improving Delirium precautions: -Keep lights on and [...] Assessment & Plan (05/25/2024 2:13 PM GAS JOCKEY): Delirium precautions: -Keep lights on and shades [...] Assessment & Plan (05/27/2022 10:17 AM GAS JOCKEY): -Confusion this admission - occurring mostly at [...] Assessment & Plan (05/26/2022 8:06 AM GAS JOCKEY): Confusion this admission - occurring mostly at night, improved after starting Seroquel nightly PRN Head CT with no acute intracranial abnormality, interval worsening of the white matter disease and volume loss since 2015, nonspecific and likely in the setting of small vessel ischemic disease Infectious workup unremarkable Holding nightly gabapentin Currently alert and oriented x 3 Delerium precautions VPO monitoring Family and patient agreeable to inpatient rehab or SNF at time of discharge. Awaiting placement. Assessment & Plan (05/25/2022 10:22 AM GAS JOCKEY): Confusion this admission - occurring mostly at [...] Assessment & Plan (05/24/2022 11:18 AM GAS JOCKEY): Confusion this admission - occurring mostly at night, improved after starting Seroquel nightly PRN Head CT with no acute intracranial abnormality, interval worsening of the white matter disease and volume loss since 2015, nonspecific and likely in the setting of small vessel ischemic disease Infectious workup unremarkable Holding nightly gabapentin Currently alert and oriented x 3 Delerium precautions VPO monitoring Family and patient agreeable to inpatient rehab or SNF at time of discharge. Awaiting placement. Assessment & Plan (05/23/2022 4:41 PM GAS JOCKEY): Confusion this admission - occurring mostly at [...] Assessment & Plan (05/22/2022 3:50 PM GAS JOCKEY): Confusion this admission which happens mostly at [...] Assessment & Plan (05/21/2022 2:19 PM GAS JOCKEY): Confusion this admission which happens mostly at [...] Assessment & Plan (05/20/2022 9:54 AM GAS JOCKEY): Confusion overnight-given Haldol 2 mg IV x [...] Assessment & Plan (06/10/2021 12:16 PM GAS JOCKEY): The patient will continue with Neurontin 900 mg and Requip 1 mg p.o. at bedtime. Assessment & Plan (12/06/2020 12:20 PM CDT): The patient will continue with Neurontin 900 mg and Requip 1 mg p.o. at bedtime. Obesity (BMI 30.0-34.9) 06/21/2020 Assessment & Plan (06/26/2020 9:48 AM GAS JOCKEY): Weight relatively stable at home - continue heart healthy, carbohydrate consistent diet Assessment & Plan (06/26/2020 9:27 AM GAS JOCKEY): Weight relatively stable at home - continue heart healthy, carbohydrate consistent diet Assessment & Plan (06/23/2020 12:23 PM GAS JOCKEY): Weight relatively stable at home Assessment & Plan (06/21/2020 1:13 PM GAS JOCKEY): Weight relatively stable at home Chronic systolic heart failure 05/30/2020 Assessment & Plan (06/26/2020 9:47 AM GAS JOCKEY): - continue IV furosemide bid for now, losartan, metoprolol - I & O, daily weight, 2g sodium diet Assessment & Plan (06/26/2020 9:26 AM GAS JOCKEY): Appears euvolemic on exam - continue oral furosemide, losartan, metoprolol - I & O, daily weight, 2g sodium diet Assessment & Plan (06/25/2020 8:19 AM GAS JOCKEY): Appears euvolemic on exam - continue oral furosemide, losartan, metoprolol - I & O, daily weight, 2g sodium diet Assessment & Plan (06/01/2020 11:10 AM GAS JOCKEY): 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 -exam remains/hemodynamically stable -work-up of elevated LDH as above -continue asa/statin and coumadin/heparin gtt; INR falling so increase coumadin to 5/6mg -continue imdur/metoprolol and cozaar -PRN lasix (has not used recently) -strict I & O/daily weights -tele Assessment & Plan (05/31/2020 12:37 PM GAS JOCKEY): 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 -exam remains/hemodynamically stable -work-up of elevated LDH as above -continue asa/statin and coumadin/heparin gtt -continue imdur/metoprolol and cozaar -PRN lasix (has not used recently) -strict I & O/daily weights -tele Assessment & Plan (05/30/2020 4:15 PM GAS JOCKEY): 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 -exam euvolemic and hemodynamically stable -work-up of elevated LDH as above -continue asa/statin and coumadin; anticipate starting heparin gtt -continue imdur/metoprolol and cozaar -PRN lasix (has not used recently) -strict I & O/daily weights -tele Left ventricular assist device (LVAD) complicati on 04/10/2020 Assessment & Plan (06/26/2020 9:47 AM GAS JOCKEY): Presented with recurrent acute symptomatic blood loss [...] Assessment & Plan (06/26/2020 9:26 AM GAS JOCKEY): Presented with recurrent acute symptomatic blood loss [...] Assessment & Plan (06/25/2020 8:16 AM GAS JOCKEY): Presented with recurrent acute symptomatic blood loss [...] Assessment & Plan (06/22/2020 1:21 PM GAS JOCKEY): Presented with recurrent acute symptomatic blood loss [...] Assessment & Plan (06/21/2020 1:08 PM GAS JOCKEY): Presented with recurrent acute symptomatic blood loss [...] Assessment & Plan (06/01/2020 11:08 AM GAS JOCKEY): Chronic systolic end stage ischemic cardiomyopathy --s/p [...] Assessment & Plan (05/31/2020 12:34 PM GAS JOCKEY): Chronic systolic end stage ischemic cardiomyopathy --s/p [...] Assessment & Plan (05/30/2020 4:15 PM GAS JOCKEY): Chronic systolic end stage ischemic cardiomyopathy --s/p [...] Assessment & Plan (04/11/2020 1:24 PM GAS JOCKEY): Had been feeling well, but outpatient labs concerning for pump thrombosis Recent LDH baseline 800's; OP labs revealed levels [id number] No LVAD alarms, no symptoms of CHF [...] Assessment & Plan (04/11/2020 11:18 AM GAS JOCKEY): Had been feeling well, but outpatient labs concerning for pump thrombosis Recent LDH baseline 800's; OP labs revealed levels [id number] No LVAD alarms, no symptoms of CHF [...] infection or inflammation - E. Facaelis bacteremia 02/2017 07/17/2019 Assessment & Plan (05/27/2022 10:18 AM GAS JOCKEY): -Continue amoxicillin for chronic suppression Assessment & Plan (05/26/2022 8:05 AM GAS JOCKEY): -Continue amoxicillin for chronic suppression Assessment & Plan (05/25/2022 10:22 AM GAS JOCKEY): -Continue amoxicillin for chronic suppression Assessment & Plan (05/24/2022 11:18 AM GAS JOCKEY): -Continue amoxicillin for chronic suppression Assessment & Plan (05/21/2022 2:14 PM GAS JOCKEY): -Continue amoxicillin for chronic suppression Assessment & Plan (05/17/2022 2:22 PM GAS JOCKEY): -Continue amoxicillin for chronic suppression Assessment & Plan (05/16/2022 1:37 PM GAS JOCKEY): -Continue amoxicillin for chronic suppression Assessment & Plan (05/15/2022 12:29 PM GAS JOCKEY): -Continue amoxicillin for chronic suppression Assessment & Plan (05/14/2022 3:36 PM GAS JOCKEY): Continue amoxicillin for chronic suppression Assessment & Plan (06/26/2020 9:47 AM GAS JOCKEY): - Continue amixocillin for chronic suppression (E. facaelis bacteremia in 2016) Assessment & Plan (06/26/2020 9:25 AM GAS JOCKEY): - Continue amixocillin for chronic suppression (E. facaelis bacteremia in 2017) Assessment & Plan (06/25/2020 8:15 AM GAS JOCKEY): - Continue amixocillin for chronic suppression (E. facaelis bacteremia in 2017) Assessment & Plan (06/22/2020 1:23 PM GAS JOCKEY): Continue amixocillin for chronic suppression (E. facaelis bacteremia in 2017) Assessment & Plan (06/21/2020 1:08 PM GAS JOCKEY): Continue amixocillin for chronic suppression (E. facaelis bacteremia in 2017) Assessment & Plan (04/11/2020 11:37 AM GAS JOCKEY): Continue chronic suppressive amoxicillin Assessment & Plan (07/22/2019 12:14 PM GAS JOCKEY): Chronic and stable -continue amoxicillin for suppression Assessment & Plan (07/21/2019 10:44 AM GAS JOCKEY): Chronic and stable -continue amoxicillin for suppression Assessment & Plan (07/20/2019 11:25 AM GAS JOCKEY): Chronic and stable -continue amoxicillin for suppression Assessment & Plan (07/19/2019 10:00 AM GAS JOCKEY): Chronic and stable -continue amoxicillin for suppression Assessment & Plan (07/18/2019 12:49 PM GAS JOCKEY): Chronic and stable -continue amoxicillin for suppression Assessment & Plan (07/17/2019 10:48 AM GAS JOCKEY): Chronic and stable Continue amoxicillin for suppression Stage 2 chronic kidney disease 07/14/2019 Assessment & Plan (06/26/2020 9:47 AM GAS JOCKEY): Stable renal function on admission - remains at baseline (1.18) Assessment & Plan (06/26/2020 9:25 AM GAS JOCKEY): Stable renal function on admission - remains at baseline (1.18) Assessment & Plan (06/25/2020 8:15 AM GAS JOCKEY): Stable renal function on admission - remains at baseline Assessment & Plan (06/22/2020 1:23 PM GAS JOCKEY): Stable renal function on admission, currently at baseline Assessment & Plan (06/21/2020 2:37 AM GAS JOCKEY): Stable renal function on admission, currently at baseline Assessment & Plan (06/01/2020 11:09 AM GAS JOCKEY): -renal fxn stable Assessment & Plan (05/31/2020 12:36 PM GAS JOCKEY): -await admission labs Assessment & Plan (05/30/2020 4:02 PM GAS JOCKEY): -await admission labs Assessment & Plan (07/22/2019 12:14 PM GAS JOCKEY): Cr baseline 0.9-1.1 -Mild RENETTA likely related to anemia and CHF -Cr 1.33 today -losartan resumed Continue to follow Assessment & Plan (07/21/2019 10:30 AM GAS JOCKEY): Cr baseline 0.9-1.1 -Mild RENETTA likely related to anemia and CHF -Cr 1.37 today -losartan resumed -cont to monitor Assessment & Plan (07/20/2019 11:23 AM GAS JOCKEY): Cr baseline 0.9-1.1 -Mild RENETTA likely related to anemia and CHF -Cr stable ~ 1.2 -losartan resumed -cont to monitor Assessment & Plan (07/19/2019 10:10 AM GAS JOCKEY): Cr baseline 0.9-1.1 -Mild RENETTA likely related to anemia and CHF -Cr slightly improved today, 1.27 -holding losartan -cont to monitor Assessment & Plan (07/18/2019 12:43 PM GAS JOCKEY): Cr baseline 0.9-1.1 -Mild RENETTA likely related to anemia and CHF -Cr slightly improved today, 1.27 -holding losartan -cont to monitor Assessment & Plan (07/17/2019 10:40 AM GAS JOCKEY): Cr baseline 0.9-1.1 Mild RENETTA likely related to anemia and CHF Received losartan this am- will hold in am pending labs Assessment & Plan (07/15/2019 12:45 PM GAS JOCKEY): Stage 3 CKD -renal fxn stable and within baseline range -follow closely with diuresis Assessment & Plan (07/14/2019 11:21 AM GAS JOCKEY): Stage 3 CKD -it is unclear if elevated Cr this am (1.15-->1.42) is accurate given modest diuresis -re-check BMP Enterococcus faecalis infection 07/06/2019 Encounter for long-term (current) use of antibio tics 07/06/2019 Discharge planning issues 05/24/2018 Assessment & Plan (05/24/2018 11:01 AM GAS JOCKEY): Patient would like physical therapy to come to his home on discharge. Will order physical therapy consult and home health for home physical therapy Acute blood loss anemia 05/17/2018 Assessment & Plan (05/27/2022 10:23 AM GAS JOCKEY): -H/O recurrent GI bleeds on Octreotide at [...] Assessment & Plan (05/26/2022 1:51 PM GAS JOCKEY): H/O recurrent GI bleeds on Octreotide at [...] Assessment & Plan (05/25/2022 10:22 AM GAS JOCKEY): H/O recurrent GI bleeds on Octreotide at [...] Assessment & Plan (05/24/2022 11:18 AM GAS JOCKEY): H/O recurrent GI bleeds on Octreotide at [...] Assessment & Plan (05/23/2022 4:39 PM GAS JOCKEY): H/O recurrent GI bleeds on Octreotide at [...] Assessment & Plan (05/22/2022 3:45 PM GAS JOCKEY): H/O recurrent GI bleeds on Octreotide at [...] Assessment & Plan (05/21/2022 2:22 PM GAS JOCKEY): H/O recurrent GI bleeds on Octreotide at [...] Assessment & Plan (05/20/2022 9:56 AM GAS JOCKEY): H/O recurrent GI bleeds on Octreotide at [...] Assessment & Plan (05/16/2022 2:05 PM GAS JOCKEY): H/O recurrent GI bleeds on Octreotide at [...] Assessment & Plan (05/15/2022 12:30 PM GAS JOCKEY): H/O recurrent GI bleeds on Octreotide at [...] Assessment & Plan (05/14/2022 3:40 PM GAS JOCKEY): H/O recurrent GI bleeds on Octreotide at [...] Assessment & Plan (05/24/2018 11:00 AM GAS JOCKEY): Admitted with hemoglobin 6.3 transfused 3 units PRBC . GI work up included small bowel enteroscopy which inconclusive and no source of bleeding noted Colonoscopy completed 05/19/17 and several polyps removed Hemoglobin stable on heparin drip . Today 10 hemoglobin continue with pantoprazole 40 mg bid Assessment & Plan (05/20/2018 9:10 AM GAS JOCKEY): Admitted with hemoglobin 6.3 transfused 3 units PRBC . GI work up included small bowel enteroscopy which inconclusive and no source of bleeding noted Colonoscopy completed 05/19/17 and several polyps removed Hemoglobin stable on heparin drip . Today hemoglobin 9.3 continue with pantoprazole 40 mg bid Assessment & Plan (05/18/2018 11:19 AM GAS JOCKEY): Admitted with GI bleeding . Small bowel enteroscopy completed on 05/14/18 and no source of bleeding noted. Plan c-scope 05/19/17 --bowel prep, NPO p MN --s/p 3units during hospitalization Assessment & Plan (05/17/2018 11:19 AM GAS JOCKEY): Admitted with GI bleeding . Small bowel [...] Assessment & Plan (06/10/2021 12:15 PM GAS JOCKEY): The patient will continue to follow up with the LVAD physician in regards to iron and ferritin levels. Assessment & Plan (12/06/2020 12:19 PM CDT): The patient will continue to follow up with the LVAD physician in regards to iron and ferritin levels. Assessment & Plan (05/24/2018 10:58 AM GAS JOCKEY): Total Iron : 38 transferrin saturation 9 Iron sucrose Given this admission Assessment & Plan (05/20/2018 9:15 AM GAS JOCKEY): Total Iron : 38 transferrin saturation 9 Iron sucrose Given this admission Assessment & Plan (05/17/2018 11:26 AM GAS JOCKEY): Total Iron : 38 transferrin saturation 9 Iron sucrose ordered Gastrointestinal hemorrhage with melena 05/13/20 18 Overview (05/14/2018): Added automatically from request for surgery [id number] Assessment & Plan (06/02/2024 10:08 AM GAS JOCKEY): History of gastrointestinal bleeding post VAD implant requiring transfusions and small-bowel enteroscopy with hemostatic clipping in July 2013 -INR goal is now 1.8-2.2, INR 1.7 this am, will continue heparin bridge with PTT goal 46-70 -Octreotide [id number], last given 05/26 Assessment & Plan (05/25/2024 2:21 PM GAS JOCKEY): History of gastrointestinal bleeding post VAD implant requiring transfusions and small-bowel enteroscopy with hemostatic clipping in July 2013 -INR goal is now 1.8-2.2, INR is 1.3, will do heparin bridge with PTT goal 46-70 -Octreotide [id number], due now Atrial flutter 05/06/2018 Assessment & Plan (05/07/2018 10:39 AM GAS JOCKEY): Hx A flutter in past, has since been in SR and weaned off amio -no recent arrhythmia per but pt noted to be in aflutter upon admit -cont metoprolol and coumadin -telemetry Assessment & Plan (05/06/2018 12:44 PM GAS JOCKEY): Hx A flutter in past, has since been in SR and weaned off amio -no recent arrhythmia per but pt noted to be in aflutter upon admit -cont metoprolol and coumadin -telemetry Hypothyroidism 05/06/2018 Assessment & Plan (06/08/2024 2:47 PM GAS JOCKEY): TSH 3.67 -Continue home levothyroxine 100mcg daily Assessment & Plan (06/06/2024 9:57 AM GAS JOCKEY): TSH 3.67 -Continue home levothyroxine 100mcg daily Assessment & Plan (06/05/2024 12:35 PM GAS JOCKEY): TSH 3.67 -Continue home levothyroxine 100mcg daily Assessment & Plan (06/03/2024 11:05 AM GAS JOCKEY): TSH 3.67 -Continue home levothyroxine 100mcg daily Assessment & Plan (06/02/2024 10:17 AM GAS JOCKEY): TSH 3.67 -Continue home levothyroxine 100mcg daily Assessment & Plan (05/29/2024 1:01 PM GAS JOCKEY): TSH 3.67 -Continue home levothyroxine 100mcg daily Assessment & Plan (05/28/2024 4:32 PM GAS JOCKEY): TSH 3.67 -Continue home levothyroxine 100mcg daily Assessment & Plan (05/27/2024 8:50 AM GAS JOCKEY): TSH 3.67 -cont home synthroid Assessment & Plan (05/25/2024 2:53 PM GAS JOCKEY): TSH 3.67 -cont home synthroid Assessment & Plan (06/26/2020 9:46 AM GAS JOCKEY): Euthyroid during prior admission - Continue Synthroid 100 mcg QAM Assessment & Plan (06/26/2020 9:25 AM GAS JOCKEY): Euthyroid during prior admission - Continue Synthroid 100 mcg QAM Assessment & Plan (06/25/2020 8:14 AM GAS JOCKEY): Euthyroid during prior admission - Continue Synthroid 100 mcg QAM Assessment & Plan (06/21/2020 1:12 PM GAS JOCKEY): Euthyroid during prior admission -Continue Synthroid 100 mcg QAM Assessment & Plan (06/01/2020 11:08 AM GAS JOCKEY): -check TFTS -continue levothyroxine Assessment & Plan (05/31/2020 12:36 PM GAS JOCKEY): -check TFTS -continue levothyroxine Assessment & Plan (05/30/2020 4:11 PM GAS JOCKEY): -check TFTS -continue levothyroxine Assessment & Plan (07/15/2019 12:45 PM GAS JOCKEY): -continue synthroid at current dose -TFTs appropriate Assessment & Plan (07/14/2019 11:17 AM GAS JOCKEY): -continue synthroid at current dose -TFTs appropriate Assessment & Plan (07/13/2019 5:57 PM GAS JOCKEY): -check TFTs -continue synthroid at current dose Assessment & Plan (05/06/2018 12:44 PM GAS JOCKEY): Check TSH -cont synthroid GIB (gastrointestinal bleeding) [...] Assessment & Plan (06/08/2024 2:47 PM GAS JOCKEY): History of gastrointestinal bleeding post VAD implant requiring transfusions and small-bowel enteroscopy with hemostatic clipping in July 2013 -No evidence bleeding on admit -Hgb 13.4 -Iron level 46 -Continue octreotide Q 30 days (last given on 05/26) -Continue BID PPI -INR goal is 1.8-2.2 (currently 1.88) -Continue warfarin 4 mg daily Assessment & Plan (06/05/2024 12:35 PM GAS JOCKEY): History of gastrointestinal bleeding post VAD implant requiring transfusions and small-bowel enteroscopy with hemostatic clipping in July 2013 -No evidence bleeding on admit -Hgb 13.4 -Iron level 46 -Continue octreotide Q 30 days (last given on 05/26) -Continue BID PPI -INR goal is 1.8-2.2 (currently 1.84) -Continue warfarin 3 mg daily Assessment & Plan (06/03/2024 11:15 AM GAS JOCKEY): History of gastrointestinal bleeding post VAD implant requiring transfusions and small-bowel enteroscopy with hemostatic clipping in July 2013 -No evidence bleeding on admit -Hgb 12.6 -Iron level 46 -Continue octreotide Q 30 days (last given on 05/26) -Continue BID PPI -INR goal is 1.8-2.2 (currently 2.45) -continue warfarin, reduce to 3 mg Assessment & Plan (06/02/2024 10:17 AM GAS JOCKEY): History of gastrointestinal bleeding post VAD implant requiring transfusions and small-bowel enteroscopy with hemostatic clipping in July 2013 -No evidence bleeding on admit -Hgb 12.6 -Iron level 46 -Continue octreotide Q 30 days (last given on 05/26) -Continue BID PPI -INR goal is 1.8-2.2 (currently 1.9) -d/c heparin gtt, continue warfarin Assessment & Plan (05/29/2024 11:01 AM GAS JOCKEY): History of gastrointestinal bleeding post VAD implant requiring transfusions and small-bowel enteroscopy with hemostatic clipping in July 2013 -No evidence bleeding on admit -Hgb stable (13.8) -Iron level 46 -Continue octreotide Q 30 days (last given on 05/26) -Continue BID PPI -INR goal is 1.8-2.2 (currently 1.42) -Continue warfarin and heparin gtt Assessment & Plan (05/28/2024 4:27 PM GAS JOCKEY): History of gastrointestinal bleeding post VAD implant requiring transfusions and small-bowel enteroscopy with hemostatic clipping in July 2013 -No evidence bleeding on admit -INR goal is 1.8-2.2 (currently 1.67) -Continue warfarin and heparin gtt -Continue octreotide Q 30 days (last given on 05/26) -Iron level 46 -Continue BID PPI Assessment & Plan (05/27/2024 9:48 AM GAS JOCKEY): History of gastrointestinal bleeding post VAD implant requiring transfusions and small-bowel enteroscopy with hemostatic clipping in July 2013 -no evidence bleeding on admit -INR goal is 1.8-2.2 -continue warfarin and heparin gtt -Octreotide [id number], given 05/26 -Iron level 46 -continue BID PPI Assessment & Plan (05/26/2024 10:39 AM GAS JOCKEY): History of gastrointestinal bleeding post VAD implant requiring transfusions and small-bowel enteroscopy with hemostatic clipping in July 2013 -no evidence bleeding on admit -INR goal is 1.8-2.2 -continue warfarin and heparin gtt -Octreotide t99alpo, ordered for 05/26 -Iron level 46 -continue BID PPI Assessment & Plan (05/07/2018 10:44 AM GAS JOCKEY): Hx GIB treated with 3 hemoclips -no further bleeding -restart ASA 81mg -cont coumadin and PPI -monitor CBC Assessment & Plan (05/06/2018 12:49 PM GAS JOCKEY): Hx GIB treated with 3 hemoclips 2014 -no further bleeding -restart ASA 81mg -cont coumadin and PPI -monitor CBC Chronic back pain 07/11/2016 Hyperlipidemia 09/07/2015 Assessment & Plan (06/26/2020 9:46 AM GAS JOCKEY): - continue atorvastatin - heart healthy diet Assessment & Plan (06/26/2020 9:22 AM GAS JOCKEY): - continue atorvastatin - heart healthy diet Assessment & Plan (06/25/2020 8:12 AM GAS JOCKEY): - continue atorvastatin Assessment & Plan (06/21/2020 2:35 AM GAS JOCKEY): -Continue Lipitor Assessment & Plan (06/01/2020 11:08 AM GAS JOCKEY): -continue lipitor Assessment & Plan (05/31/2020 12:35 PM GAS JOCKEY): -continue lipitor Assessment & Plan (05/30/2020 4:45 PM GAS JOCKEY): -continue lipitor Hypertension 09/07/2015 Insomnia with sleep [...] Plan (09/17/2024 7:17 AM CDT): End stage [facility] s/p [facility] 2014 Well functioning VAD without alarms. Patient appears compensated and euvolemic. INR 1.14 on presentation with goal 1.8-2.2. -INR therapeutic. Continue warfarin -continue metoprolol -monthly octreotide 20mg IM given 5/2 -accurate I&O, monitor on telemetry, daily weights Assessment & Plan (09/16/2024 11:06 AM CDT): End stage [facility] s/p [facility] 2014 Well functioning VAD without alarms. Patient appears compensated and euvolemic. INR 1.14 on presentation with goal 1.8-2.2. -INR 1.8, DC heparin gtt, continue warfarin -continue metoprolol -monthly octreotide 20mg IM given 5/2 -accurate I&O, monitor on telemetry, daily weights Assessment & Plan (09/15/2024 9:59 AM CDT): End stage [facility] s/p [facility] 2014 Well functioning VAD without alarms. Patient appears compensated and euvolemic. INR 1.14 on presentation with goal 1.8-2.2. -continue heparin gtt, continue warfarin -continue metoprolol -accurate I&O, monitor on telemetry, daily weights Assessment & Plan (09/14/2024 11:23 AM CDT): End stage [facility] s/p [facility] 2014 Well functioning VAD without alarms. Patient appears compensated and euvolemic. INR 1.14 on presentation with goal 1.8-2.2. -INR 1.5, on heparin gtt, continue warfarin 6mg -continue metoprolol -accurate I&O, monitor on telemetry, daily weights Assessment & Plan (09/13/2024 10:55 AM CDT): End stage [facility] s/p [facility] 2014 Well functioning VAD without alarms. Patient [...] Assessment & Plan (06/08/2024 2:46 PM GAS JOCKEY): S/P DT HeartMate 2 LVAD 05/2014, Home [...] Assessment & Plan (06/07/2024 10:38 AM GAS JOCKEY): S/P DT HeartMate 2 LVAD 05/2014, Home [...] Assessment & Plan (06/05/2024 12:40 PM GAS JOCKEY): S/P DT HeartMate 2 LVAD 05/2014, Home [...] Assessment & Plan (06/03/2024 11:15 AM GAS JOCKEY): S/P DT HeartMate 2 LVAD 05/2014, Home [...] Assessment & Plan (06/02/2024 10:32 AM GAS JOCKEY): S/P DT HeartMate 2 LVAD 05/2014, Home GDMT: [email or web address]. Last echo 12/2023 EF 33% -Hemodynamically stable, euvolemic on exam -LVAD functioning appropriately without alarms -INR 1.9(INR goal 1.8-2.2) -Continue warfarin 5mg daily -No aspirin 2/2 hx GIB -Continue empagliflozin 10mg daily and metoprolol XL 50mg daily -Strict I & Os, daily standing weights, 2G sodium diet Assessment & Plan (05/29/2024 10:56 AM GAS JOCKEY): S/P DT HeartMate 2 LVAD 05/2014, Home [...] Assessment & Plan (05/28/2024 4:31 PM GAS JOCKEY): S/P DT HeartMate 2 LVAD 05/2014, Home [...] Assessment & Plan (05/27/2024 9:45 AM GAS JOCKEY): S/P DT HeartMate 2 LVAD 05/2014, Home [...] Assessment & Plan (05/26/2024 10:54 AM GAS JOCKEY): S/P DT HeartMate 2 LVAD 05/2014, Home [...] Assessment & Plan (05/27/2022 10:14 AM GAS JOCKEY): -Hemodynamically stable, euvolemic on exam -LVAD functioning appropriately without alarms -INR therapeutic 2.0 (1.7-2.2) -Continue warfarin 6mg daily -No aspirin upon discharge -Continue empagliflozin -Discontinue losartan 25 mg -Continue metoprolol XL -Strict I & Os, daily standing weights, 2G sodium diet -Telemetry monitoring Assessment & Plan (05/26/2022 2:39 PM GAS JOCKEY): Hemodynamically stable, euvolemic on exam LVAD functioning appropriately without alarms INR subtherapeutic 1.6 (New INR goal of 1.7-2.2) Discontinue heparin drip as INR is Therapeutic today Continue warfarin 6mg daily No aspirin upon discharge Continue empagliflozin Discontinue losartan 25 mg Continue metoprolol XL Strict I & Os, daily standing weights, 2G sodium diet Telemetry monitoring Assessment & Plan (05/25/2022 10:23 AM GAS JOCKEY): Hemodynamically stable, euvolemic on exam LVAD functioning appropriately without alarms INR subtherapeutic 1.6 (New INR goal of 1.7-2.2) Heparin drip until INR therapeutic Continue warfarin to 6mg daily No aspirin upon discharge Continue empagliflozin Holidng losartan and metoprolol XL due to hypotension Strict I & Os, daily standing weights, 2G sodium diet Telemetry monitoring Assessment & Plan (05/24/2022 11:19 AM GAS JOCKEY): Hemodynamically stable, euvolemic on exam LVAD functioning appropriately without alarms INR subtherapeutic 1.6 (New INR goal of 1.7-2.2) Heparin drip until INR therapeutic Continue warfarin to 6mg daily No aspirin upon discharge Continue empagliflozin Holidng losartan and metoprolol XL due to hypotension Strict I & Os, daily standing weights, 2G sodium diet Telemetry monitoring Assessment & Plan (05/23/2022 4:40 PM GAS JOCKEY): Hemodynamically stable, euvolemic on exam LVAD functioning appropriately without alarms INR subtherapeutic 1.6 (New INR goal of 1.7-2.2) Heparin drip until INR therapeutic Continue warfarin to 6mg daily No aspirin upon discharge Continue empagliflozin Holidng losartan and metoprolol XL due to hypotension Strict I & Os, daily standing weights, 2G sodium diet Telemetry monitoring Assessment & Plan (05/22/2022 3:55 PM GAS JOCKEY): Hemodynamically stable, euvolemic on exam LVAD functioning appropriately without alarms INR pending (New INR goal of 1.7-2.2) Continue warfarin to 5mg daily No aspirin upon discharge Continue empagliflozin Holidng losartan and metoprolol XL due to hypotension Strict I & Os, daily standing weights, 2G sodium diet Telemetry monitoring Assessment & Plan (05/21/2022 2:10 PM GAS JOCKEY): Hemodynamically stable, euvolemic on exam LVAD functioning appropriately without alarms INR 1.5 today (INR goal of 1.7-2.2) Continue warfarin to 5mg daily and heparin gtt No aspirin upon discharge Continue losartan, metoprolol XL, empagliflozin Strict I & Os, daily standing weights, 2G sodium diet Telemetry monitoring Assessment & Plan (05/20/2022 9:51 AM GAS JOCKEY): Hemodynamically stable, euvolemic on exam LVAD functioning appropriately without alarms INR 1.3 today (INR goal of 1.7-2.2) Continue warfarin and heparin gtt No aspirin upon discharge Continue losartan and metoprolol Strict I & Os, daily standing weights, 2 G sodium diet Telemetry monitoring Assessment & Plan (05/16/2022 1:36 PM GAS JOCKEY): Euvolemic on exam No LVAD alarms INR currently 2.0 (INR goal 2.0-2.5) Holding warfarin for GI bleed Holding home losartan and metoprolol XL for GI Bleed Monitor I/Os, Daily weights Telemetry Assessment & Plan (05/15/2022 12:28 PM GAS JOCKEY): Euvolemic on exam No LVAD alarms INR supratherapeutic at 2.9 (INR goal 2.0-2.5) Holding warfarin for GI bleed Holding home losartan and metoprolol XL for GI Bleed Monitor I/Os, Daily weights Telemetry Assessment & Plan (05/14/2022 3:35 PM GAS JOCKEY): Euvolemic on exam No LVAD alarms INR therapeutic with goal 2.0-2.5 Holding warfarin for GI bleed Holding antihypertensives for GI Bleed Monitor I/Os, Daily weights Telemetry Assessment & Plan (06/26/2020 9:46 AM GAS JOCKEY): Complication management as above - LVAD appears to be functioning normally without alarms - INR 1.6, continue heparin bridge until INR therapeutic - warfarin 5mg nightly Assessment & Plan (06/26/2020 9:24 AM GAS JOCKEY): Complication management as above - LVAD appears to be functioning normally without alarms - INR 1.6, continue heparin bridge until INR therapeutic - warfarin 5mg nightly Assessment & Plan (06/25/2020 8:14 AM GAS JOCKEY): Complication management as above - LVAD appears to be functioning normally without alarms - INR 1.5, continue heparin bridge until INR therapeutic Assessment & Plan (06/22/2020 1:23 PM GAS JOCKEY): Complication management as above No LVAD alarms Holding aspirin and warfarin as above Appears euvolemic on exam Given IV furosemide this am post blood transfusion and iron infusion Will resume home furosemide in am Continue statin, Imdur 30 mg, metoprolol 50 mg, and Losartan 50 mg daily -Strict I & O/daily weights -Continuous telemetry Assessment & Plan (06/21/2020 1:10 PM GAS JOCKEY): Complication management as above No LVAD alarms Holding aspirin and warfarin as above Appears euvolemic on exam Holding home furosemide due to active GI Bleed Continue statin, Imdur 30 mg, metoprolol 50 mg, and Losartan 50 mg daily Low threshold to hold afterload if concern of acute bleed -Strict I & O/daily weights -Continuous telemetry Assessment & Plan (04/11/2020 1:24 PM GAS JOCKEY): Complication management as above Euvolemic on exam; hemodynamically stable Continue home losartan, isosorbide, metoprolol, and furosemide Anticoagulation plan as noted above Off aspirin due to recurrent GI bleed Monitor I/Os, daily weights, telemetry Assessment & Plan (04/11/2020 11:34 AM GAS JOCKEY): Complication management as above Euvolemic on exam; hemodynamically stable Continue home losartan, isosorbide, metoprolol, and furosemide Anticoagulation plan as noted above Off aspirin due to recurrent GI bleed, discussing need to re-challenge Monitor I/Os, daily weights, telemetry Assessment & Plan (07/22/2019 12:11 PM GAS JOCKEY): Presented with volume overload in setting of [...] therapeutic (goal decreased to 1.8-2.2) -warfarin resumed 3/2 - Continue 5mg daily -I&Os, daily weights, telemetry Assessment & Plan (07/21/2019 10:35 AM GAS JOCKEY): Presented with volume overload in setting of [...] Assessment & Plan (07/20/2019 11:25 AM GAS JOCKEY): Presented with volume overload in setting of [...] Assessment & Plan (07/19/2019 10:06 AM GAS JOCKEY): Presented with volume overload in setting of [...] Assessment & Plan (07/18/2019 12:47 PM GAS JOCKEY): Presented with volume overload in setting of [...] Assessment & Plan (07/17/2019 10:36 AM GAS JOCKEY): Presented with volume overload in setting of [...] Assessment & Plan (07/15/2019 12:43 PM GAS JOCKEY): 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 INR goal 2.0 - warfarin 7mg nightly -continue suppressive amoxicillin (hx bacteremia ) Assessment & Plan (05/23/2018 11:32 AM GAS JOCKEY): -exam remains euvolemic on current regimen -H/H remain stable post GI bleed -continue hep/coumadin until INR therapeutic -c/w warfarin 7mg nightly -continue suppressive amoxicillin (hx bacteremia ) Assessment & Plan (05/21/2018 12:06 PM GAS JOCKEY): -exam remains euvolemic on current regimen -H/H remain stable post GI bleed -continue hep/coumadin until INR therapeutic -will increase coumadin to 6mg nightly -no asa 2/2 recurrent GI bleeds -continue suppressive amoxicillin (hx bacteremia ) Assessment & Plan (05/20/2018 9:13 AM GAS JOCKEY): euvolemic on exam daily weight stable at 209 On heparin drip and bridging for theraputic INR previously Off coumadin for GI work -up continue losartan 100 mg daily, metoprolol 50 mg daily, isosorbide mononitrate 30 mg daily, , furosemide 20 mg daily -continue suppressive amoxicillin (hx bacteremia ) Monitor daily labs Assessment & Plan (05/19/2018 9:58 AM GAS JOCKEY): -exam stable today -colonoscopy today -continue lasix and follow volume status closely -continue cozaar/nitrates/metoprolol and lipitor -continue suppressive amoxicillin (hx bacteremia ) Assessment & Plan (05/17/2018 11:12 AM GAS JOCKEY): Euvolimic on exam. - will continue heparin drip Warfarin 5 mg daily . Team will need to discontinue warfarin for colonoscopy on Thursday05/19/18 Today INR 1.91 Continue furosemide 20 mg daily , imdur 30 mg daily and losartan 100 mg daily Assessment & Plan (05/16/2018 10:16 AM GAS JOCKEY): Euvolimic on exam. -INR 1.6, resumed warfarin and ASA - cont with heparin gtt -continue atorvastatin, metoprolol, losartan -continue amoxicillin for chronic suppressive therapy (bacteremia at time of LVAD implant) -I&Os, daily weights, telemetry Assessment & Plan (05/14/2018 1:12 PM GAS JOCKEY): -mildly volume overloaded on exam -INR 1.95, holding warfarin -stop ASA -Lasix as needed with transfusions -continue atorvastatin, metoprolol, losartan -continue amoxicillin for chronic suppressive therapy (bacteremia at time of LVAD implant) -I&Os, daily weights, telemetry Assessment & Plan (05/07/2018 10:39 AM GAS JOCKEY): 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 Beach - PPI po BID - Follow serial CBCs - Resumed warfarin 2/5, continue heparin gtt until therapeutic INR (goal PTT 60- 75, normogram adjusted) Assessment & Plan (06/26/2020 9:24 AM GAS JOCKEY): Recently admitted with elevated LDH- aspirin increased [...] - Small bowel enteroscopy without bleeding source 2/5 - low dose aspirin resumed 3X/week, however, patient has reservations about taking and will discuss with Dr. Beach - PPI po BID - Follow serial CBCs - Resumed warfarin 2/5, continue heparin gtt until therapeutic INR (goal PTT 60- 75, normogram adjusted) Assessment & Plan (06/25/2020 8:10 AM GAS JOCKEY): Recently admitted with elevated LDH- aspirin increased [...] - Small bowel enteroscopy without bleeding source 2/5 - Holding aspirin- may consider restarting only 3 times weekly as he was tolerating that dose previously - PPI po BID - Follow serial CBCs - Resumed warfarin 2/5, continue heparin gtt until therapeutic INR (goal PTT 60- 75, normogram adjusted) Assessment & Plan (06/22/2020 1:20 PM GAS JOCKEY): Recently admitted with elevated LDH- aspirin increased to daily (had been on aspirin 81mg three times weekly) Has undergone several upper and lower endoscopies. Active bleed found 07/2014 upper endoscopy in proximal jejunum status post 3 hemoclips Admitted 2 with fatigue, weakness and acute normocytic anemia [...] Assessment & Plan (06/21/2020 1:01 PM GAS JOCKEY): Recently admitted with elevated LDH- aspirin increased [...] Assessment & Plan (07/22/2019 12:12 PM GAS JOCKEY): History of GI bleed x3 (2014, 2015, [...] Assessment & Plan (07/21/2019 10:45 AM GAS JOCKEY): History of GI bleed x3 (2014, 2015, [...] 07/16 with capsule in duodenem -push enteroscopy 3 without evidence of bleeding -AC restarted, new INR goal 1.8-2.2 -Hgb stable -GI signed off Assessment & Plan (07/20/2019 11:26 AM GAS JOCKEY): History of GI bleed x3 (2014, 2015, [...] 07/16 with capsule in duodenem -push enteroscopy 3 without evidence of bleeding -AC restarted yesterday evening, new INR goal 1.8-2.2 -GI signed off Assessment & Plan (07/19/2019 9:54 AM GAS JOCKEY): History of GI bleed x3 (2014, 2015, [...] 07/16 with capsule in duodenem -push enteroscopy 3 without evidence of bleeding -AC restarted yesterday evening, new INR goal 1.8-2.2 -GI following Assessment & Plan (07/18/2019 1:38 PM GAS JOCKEY): History of GI bleed x3 (2014, 2015, [...] Assessment & Plan (07/17/2019 10:28 AM GAS JOCKEY): History of GI bleed x3 (2014, 2015, [...] Assessment & Plan (07/15/2019 12:41 PM GAS JOCKEY): Pt presented with new onset anemia and [...] Assessment & Plan (07/14/2019 11:16 AM GAS JOCKEY): Pt presents with new onset anemia and [...] Assessment & Plan (07/13/2019 5:56 PM GAS JOCKEY): Pt presents with new onset anemia and [...] Assessment & Plan (05/23/2018 11:31 AM GAS JOCKEY): Acute blood loss anemia in the setting [...] Assessment & Plan (05/21/2018 11:58 AM GAS JOCKEY): Acute blood loss anemia in the setting [...] Assessment & Plan (05/19/2018 9:48 AM GAS JOCKEY): Acute blood loss anemia in the setting of coumadin induced coagulopathy. Push enteroscopy on 05/14/18 without overt bleeding or site of prior bleeding identified. No recurrent bleeding. -plan for c-scope today -counts remain stable s/p 3 units of PRBC -continue PPI BID -coumadin remains on hold -no asa 2/2 multiple GI bleeds Assessment & Plan (05/17/2018 11:20 AM GAS JOCKEY): Acute blood loss anemia in the setting [...] Assessment & Plan (05/16/2018 10:22 AM GAS JOCKEY): Acute blood loss anemia in the setting [...] Assessment & Plan (05/14/2018 1:03 PM GAS JOCKEY): Acute blood loss anemia in the setting [...] Assessment & Plan (06/08/2024 2:45 PM GAS JOCKEY): Home regimen: Tuojeo, Ozepmic (Sundays), humalog with meals, -HGB A1c 7.6 on 04/28/24 -BG elevated -Continue Lantus to 16 units Q AM, Lipsro 7 units TID with meals + SSI -Accuchecks -Carb consistent diet Assessment & Plan (06/07/2024 10:38 AM GAS JOCKEY): Home regimen: Tuojeo, Ozepmic (Sundays), humalog with meals, -HGB A1c 7.6 on 04/28/24 -BG elevated -Continue Lantus to 16 units Q AM, Lipsro 7 units TID with meals + SSI -Accuchecks -Carb consistent diet Assessment & Plan (06/05/2024 12:40 PM GAS JOCKEY): Home regimen: Tuojeo, Ozepmic (Sundays), humalog with meals, -HGB A1c 7.6 on 04/28/24 -BG elevated -Continue Lantus to 16 units Q AM, Lipsro 7 units TID with meals 16 + SSI -Accuchecks -Carb consistent diet Assessment & Plan (06/03/2024 11:15 AM GAS JOCKEY): Home regimen: Tuojeo, Ozepmic (Sundays), humalog with meals, -HGB A1c 7.6 on 04/28/24 -BG elevated -Continue Lantus to 16 units Q AM, Lipsro 7 units TID with meals 06/02 + SSI -Accuchecks -Carb consistent diet Assessment & Plan (06/02/2024 10:33 AM GAS JOCKEY): Home regimen: Tuojeo, Ozepmic (Sundays), humalog with meals, -HGB A1c 7.6 on 04/28/24 -BG elevated -Increased Lantus to 16 units Q AM, Lipsro 7 units TID with meals 06/02 + SSI -Accuchecks -Carb consistent diet Assessment & Plan (05/29/2024 1:01 PM GAS JOCKEY): Home regimen: Tuojeo, Ozepmic (Sundays), humalog with meals, -HGB A1c 7.6 on 04/28/24 -BG controlled -Continue Lantus to 14 units Q AM, Lipsro 4 units TID with meals + SSI -Accuchecks -Carb consistent diet Assessment & Plan (05/28/2024 4:30 PM GAS JOCKEY): Home regimen: Tuojeo, Ozepmic (Sundays), humalog with meals, -HGB A1c 7.6 on 04/28/24 -BG elevated -Increase Lantus to 14 units Q AM -Continue Lipsro 4 units TID with meals + SSI -Accuchecks -Carb consistent diet Assessment & Plan (05/27/2024 7:58 AM GAS JOCKEY): Home regimen: Tuojeo, Ozepmic (Sundays), humalog with meals, -HGB A1c 7.6 on 04/28/24 -POC BG and SSI QID -hyperglycemic, add lantus and meal time insulin Assessment & Plan (05/25/2024 1:59 PM GAS JOCKEY): Home regimen: Tuojeo, Ozepmic (Sundays), humalog with meals, -HGB A1c 7.6 on 04/28/24 -POC BG and SSI QID -consider lantus plus meal if BG uncontrolled Assessment & Plan (05/27/2022 10:09 AM GAS JOCKEY): -Hgb A1c 6.4% -Well controlled as inpatient with glucose 110-150's -Decreased Lantus to 17 units nightly and Lispro to 10units with meals with SSI -POC Glucose QID + 0200 -Carbohydrate consistent diet Assessment & Plan (05/26/2022 2:06 PM GAS JOCKEY): Hgb A1c 6.4% Well controlled as inpatient with glucose 110-150's Decreased Lantus to 17 units nightly and Lispro to 10units with meals with SSI POC Glucose QID + 0200 Carbohydrate consistent diet Assessment & Plan (05/25/2022 10:23 AM GAS JOCKEY): Hgb A1c 6.4% Well controlled as inpatient with glucose 110-150's Decreased Lantus to 17 units nightly and Lispro to 10units with meals with SSI POC Glucose QID + 0200 Carbohydrate consistent diet Assessment & Plan (05/24/2022 11:19 AM GAS JOCKEY): Hgb A1c 6.4% Well controlled as inpatient with glucose 110-150's Decreased Lantus to 17 units nightly and Lispro to 10units with meals with SSI POC Glucose QID + 0200 Carbohydrate consistent diet Assessment & Plan (05/23/2022 4:45 PM GAS JOCKEY): Hgb A1c 6.4% Well controlled as inpatient with glucose 110-150's Blood glucose low on BMP this am Decreased Lantus to 17 units nightly and Lispro to 10units with meals with SSI POC Glucose QID + 0200 Carbohydrate consistent diet Assessment & Plan (05/22/2022 3:49 PM GAS JOCKEY): Hgb A1c 6.4% Well controlled as inpatient with glucose 110-150's Continue Lantus at 20 units nightly and Lispro 12 units with meals with SSI POC Glucose QID Carbohydrate consistent diet Assessment & Plan (05/21/2022 2:06 PM GAS JOCKEY): Patient reports hyperglycemia the last few days Hgb A1c 6.4% Continue Lantus at 20 units nightly and Lispro 12 units with meals with SSI POC Glucose QID Carbohydrate consistent diet Assessment & Plan (05/20/2022 9:30 AM GAS JOCKEY): Patient reports hyperglycemia the last few days Hgb A1c 6.4% Continue Lantus at 20 units nightly and Lispro 12 units with meals with SSI POC Glucose QID Carbohydrate consistent diet Assessment & Plan (05/16/2022 1:36 PM GAS JOCKEY): Patient reports hyperglycemia the last few days Hgb A1c 6.4% Continue Lantus at 20 units nightly and Lispro 12 units with meals with SSI POC Glucose QID Carbohydrate consistent diet Assessment & Plan (05/15/2022 12:27 PM GAS JOCKEY): Patient reports hyperglycemia the last few days Check Hgb A1c Continue Lantus at 15 units nightly and Lispro 7units with meals with SSI POC Glucose QID Carbohydrate consistent diet Assessment & Plan (05/14/2022 3:38 PM GAS JOCKEY): Patient reports hyperglycemia the last few days Check Hgb A1c Continue Lantus at 12U Nightly (15U at home) and Lispro 7U with meals with SSI (15U per meal at home) POC Glucose QID Carbohydrate consistent diet Assessment & Plan (06/26/2020 9:46 AM GAS JOCKEY): Mildly elevated BG on admission - High insulin requirements at home (Jardiance, Tujeo 80U qAM, Lispro 22U TID AC) - Continue QID POC glucose - Hold Jardiance inpatient - continue reduced dose Lantus, lispro with meals and sliding scale - carbohydrate consistent diet Assessment & Plan (06/26/2020 9:22 AM GAS JOCKEY): Mildly elevated BG on admission - High insulin requirements at home (Jardiance, Tujeo 80U qAM, Lispro 22U TID AC) - Continue QID POC glucose - Hold Jardiance inpatient - continue reduced dose Lantus, lispro with meals and sliding scale - carbohydrate consistent diet Assessment & Plan (06/25/2020 8:12 AM GAS JOCKEY): Mildly elevated BG on admission - High insulin requirements at home (Jardiance, Tujeo 80U qAM, Lispro 22U TID AC) - Continue QID POC glucose - Hold Jardiance inpatient - continue reduced dose Lantus, lispro with meals and sliding scale - carbohydrate consistent diet Assessment & Plan (06/22/2020 1:24 PM GAS JOCKEY): Mildly elevated BG on admission. High insulin requirements at home (Jardiance, Tujeo 80U qAM, Lispro 22U TID AC) Continue QID POC glucose Hold Jardiance inpatient -Reduced long-acting insulin to Lantus 70U qAM -Reduced dose lispro 15U TID AC -SSI, carb consistent diet Assessment & Plan (06/21/2020 1:11 PM GAS JOCKEY): Mildly elevated BG on admission. High insulin requirements at home (Jardiance, Tujeo 80U qAM, Lispro 22U TID AC) Continue QID POC glucose Hold Jardiance inpatient -Reduced long-acting insulin to Lantus 70U qAM -Reduced dose lispro 15U TID AC -SSI, carb consistent diet Assessment & Plan (06/01/2020 11:08 AM GAS JOCKEY): -continue QID acchchecks and lantus and mealtime insulin + insulin and decrease dose -hold Jardiance while in house Assessment & Plan (05/31/2020 12:35 PM GAS JOCKEY): -continue QID acchchecks and lantus and mealtime insulin + insulin and decrease dose -hold Jardiance while in house Assessment & Plan (05/30/2020 4:41 PM GAS JOCKEY): -continue QID acchchecks and lantus and mealtime insulin + insulin and decrease dose -hold Jardiance -HgAIC Assessment & Plan (04/11/2020 11:36 AM GAS JOCKEY): Home: Jardiance, Tujeo 80U qAM, Lispro 22U TID AC Plan: Reduced long-acting insulin to Lantus 70U qAM Reduced dose lispro 15U TID AC Holding home Jardiance SSI as needed Carbohydrate consistent diet Follow Assessment & Plan (07/22/2019 12:14 PM GAS JOCKEY): Hgb A1c 8.2 -Glucose well controlled as inpatient -continue current insulin regimen -consistent carb diet Assessment & Plan (07/21/2019 10:44 AM GAS JOCKEY): Hgb A1c 8.2 -Glucose well controlled as inpatient -continue current insulin regimen -consistent carb diet Assessment & Plan (07/20/2019 11:25 AM GAS JOCKEY): Hgb A1c 8.2 -Glucose well controlled as inpatient -continue current insulin regimen Assessment & Plan (07/19/2019 10:04 AM GAS JOCKEY): Hgb A1c 8.2 -Glucose well controlled as inpatient -continue current insulin regimen Assessment & Plan (07/18/2019 12:48 PM GAS JOCKEY): Hgb A1c 8.2 -Glucose well controlled as inpatient -continue current insulin regimen Assessment & Plan (07/17/2019 10:29 AM GAS JOCKEY): Hgb A1c 8.2 Glucose well controlled as inpatient - 90-170's Continue current insulin regimen Assessment & Plan (07/15/2019 12:44 PM GAS JOCKEY): -will continue long acting lantus and mealtime insulin -adjust mealtime insulin as needed -SSI PRN Assessment & Plan (07/14/2019 11:17 AM GAS JOCKEY): -will continue long acting lantus and mealtime insulin at decreased doses -SSI PRN Assessment & Plan (07/13/2019 5:59 PM GAS JOCKEY): -will continue long acting lantus and mealtime insulin at decreased doses -SSI PRN Assessment & Plan (05/24/2018 10:59 AM GAS JOCKEY): reviewed blood sugars 97,163,192,109 continue lantus 50 units at night and ssi -Continue to monitor Assessment & Plan (05/23/2018 11:31 AM GAS JOCKEY): -continue lantus and SSI -Continue to monitor Assessment & Plan (05/21/2018 12:01 PM GAS JOCKEY): -continue lantus and SSI : 287,204 lantus 50 units ( decreased from home dose of 80 units ) -Continue to monitor Assessment & Plan (05/20/2018 9:19 AM GAS JOCKEY): -continue lantus and SSI : 287,204 lantus 50 units ( decreased from home dose of 80 units ) -Continue to monitor Assessment & Plan (05/19/2018 10:04 AM GAS JOCKEY): -continue lantus and SSI -Insulin decreased from home dose 80 units . -Continue to monitor Assessment & Plan (05/17/2018 11:22 AM GAS JOCKEY): -reviewed blood sugars : 126,248,217,188,153,103,94 lantus 60 units at bedtime and SSI Insulin decreased from home dose 80 units . Continue to monitor Assessment & Plan (05/14/2018 1:04 PM GAS JOCKEY): -home lantus reduced from 80 to 60 daily -hold home lispro 18 TID AC while NPO -lispro SSI Assessment & Plan (05/07/2018 10:39 AM GAS JOCKEY): -will start lantus and lispro at lower dose and monitor -cont gabapentin Assessment & Plan (05/06/2018 12:41 PM GAS JOCKEY): -will start lantus and lispro at lower dose and monitor -cont gabapentin Atherosclerosis of coronary artery 10/01/2010 Assessment & Plan (05/23/2018 11:31 AM GAS JOCKEY): -cont imdur, losartan, metoprolol, and statin as above -no asa given bleed Assessment & Plan (05/18/2018 11:17 AM GAS JOCKEY): -cont imdur, losartan, metoprolol, and statin as above --no asa given bleed Assessment & Plan (05/16/2018 10:32 AM GAS JOCKEY): -cont imdur, losartan, metoprolol, and statin as above Assessment & Plan (05/14/2018 1:03 PM GAS JOCKEY): -cont imdur, losartan, metoprolol, and statin Obstructive [...] Assessment & Plan (05/27/2022 10:09 AM GAS JOCKEY): -Continue CPAP (patient brought home unit) Assessment & Plan (05/26/2022 8:09 AM GAS JOCKEY): Continue CPAP (patient brought home unit) Assessment & Plan (05/25/2022 10:23 AM GAS JOCKEY): Continue CPAP (patient brought home unit) Assessment & Plan (05/24/2022 11:19 AM GAS JOCKEY): Continue CPAP (patient brought home unit) Assessment & Plan (05/21/2022 2:07 PM GAS JOCKEY): Continue CPAP (patient brought home unit) Assessment & Plan (05/17/2022 2:20 PM GAS JOCKEY): Patient brought home CPAP unit Assessment & Plan (05/16/2022 1:37 PM GAS JOCKEY): Patient brought home CPAP unit Assessment & Plan (05/15/2022 12:27 PM GAS JOCKEY): Patient did not bring home unit -Will have RT provide CPAP while patient hospitalized Assessment & Plan (05/14/2022 3:35 PM GAS JOCKEY): Patient did not bring home unit Will have RT provide CPAP while patient hospitalized Assessment & Plan (12/10/2021 12:09 PM CDT): Patient will continue CPAP therapy at 11 cm water pressure. He is unable to tolerate higher pressure. Adjacent Applications. Patient was reminded to examine CPAP prior to use for debris Assessment & Plan (06/10/2021 12:16 PM GAS JOCKEY): The patient will continue to wear his CPAP at 11 cm of water pressure The patient did receive an order for supplies. Adjacent Applications. The patient is benefitting from CPAP therapy. [...] patient did receive an order for supplies. Adjacent Applications. The patient is benefitting from CPAP therapy. Assessment & Plan (06/26/2020 9:46 AM GAS JOCKEY): - Continue home CPAP Assessment & Plan (06/26/2020 9:24 AM GAS JOCKEY): - Continue home CPAP Assessment & Plan (06/25/2020 8:14 AM GAS JOCKEY): - Continue home CPAP Assessment & Plan (06/21/2020 2:35 AM GAS JOCKEY): Continue home CPAP -NPPV ordered Assessment & Plan (06/01/2020 11:08 AM GAS JOCKEY): -continue home CPAP Assessment & Plan (05/31/2020 12:36 PM GAS JOCKEY): -continue home CPAP Assessment & Plan (05/30/2020 4:12 PM GAS JOCKEY): -continue home CPAP Assessment & Plan (04/11/2020 11:38 AM GAS JOCKEY): Continue home CPAP Assessment & Plan (05/23/2018 11:32 AM GAS JOCKEY): -c/w home CPAP Assessment & Plan (05/21/2018 12:06 PM GAS JOCKEY): -home CPAP Assessment & Plan (05/20/2018 9:13 AM GAS JOCKEY): -home CPAP Assessment & Plan (05/19/2018 9:51 AM GAS JOCKEY): -home CPAP Assessment & Plan (05/17/2018 11:22 AM GAS JOCKEY): -home CPAP Assessment & Plan (05/14/2018 1:12 PM GAS JOCKEY): -home CPAP Resolved Problems Problem Noted Date Diagnosed Date Resolved Date Acute renal failure 05/16/2018 05/21/19 19 Assessment & Plan (05/19/2018 9:51 AM GAS JOCKEY): -RENETTA w/w intravascular dehydration in setting of GI bleed/pre-kristal; -Cr now baseline -lasix/cozaar resumed Assessment & Plan (05/16/2018 10:31 AM GAS JOCKEY): Pt noted to have Cr 1.4 today, likely due to pre-renal etiology from over diuresis. He received his lasix 20 mg PO today already. -holding AM dose of lasix/losartan tomorrow in AM and give only if Cr improving after AM labs Heart failure 11/13/2016 05/30/2020 Cardiomyopathy 08/30/2015 11/26/2017 Encounters Date Type Department Care Team Description 10/31/2024 Telephone [facility] Endocrinology Metabolism and Lipid [address] [facility] Medical Office [address], [address] [place] [address] Diana Rose RN 10/31/2024 Telephone [facility] Cardiology [address] [facility] 8th [place] [address] [place] [address] Thompson Napoles MD 10/25/2024 Telephone [facility] Cardiology [address] [facility] Advanced [facility] 8th [place] [address] [place] [phone] Deb Boss 10/24/2024 Anticoagulation Telephone Call [facility] Trans[facility] Heart [address] [facility] [address] Mailstop [phone] [place] [address] Darlin Diaz, RN 10/18/2024 Anticoagulation Telephone Call [facility] Transplant Heart [address] Mailstop [id number] [place] [address] Darlin Diaz, RN 10/18/2024 Telephone [facility] [address] [facility] [address] Mailstop [id number] [place] [address] Aicha Walker 10/17/2024 Documentation [facility] Trans[facility] Heart [address] Mailstop [phone] [place] [address] Darlin Diaz, AGUSTINA 10/14/2024 Telephone [facility] Endocrinology Metabolism and Lipid [address] [facility] 5th [place] [address] [place] [address] Ping Shah RMA Prior Auth (ENRIQUE ANAYA) 10/14/2024 Telephone [facility] Transplant Heart [address] 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 [address] [place] [address] Darlin Diaz, RN 10/12/2024 Anticoagulation Telephone Call [facility] Transplant Heart [address] [facility] [address] [place] [address] Suki Schilling, AGUSTINA 10/11/2024 Telephone [facility] Transplant Heart [address] [facility] [address] [place] [address] Darlin Diaz, RN 10/07/2024 Telephone [facility] Cardiology [address] [facility] 8th [place] [address] [place] [phone] Aylin Vasquez 10/07/2024 Telephone [facility] Transplant Heart [address] [place] [address] [address] [place] [address] Alex Alejo 10/06/2024 Documentation [facility] [address] [facility] [address] Mailstop [address] [place] [address] Darlin Diaz, RN 10/06/2024 Telephone [facility] Transplant Heart [address] [facility] [address] [place] [address] Alex Alejo 10/05/2024 Telephone [facility] [address] [place] [phone] Roberta Morel RN 10/05/2024 [facility] [address] [facility] [address] [place] [phone] Carlos Hatch MD 10/04/2024 [facility] [address] [place] [address] [place] [phone] Carlos Hatch MD 10/03/2024 [facility] [address] [place] [address] [place] [phone] Carlos Hatch MD 10/02/2024 [facility] [address] [place] [address] [place] [phone] Carlos Hatch MD 10/01/2024 [facility] [address] [place] [address] [place] [phone] Carlos Hatch MD 09/30/2024 11:07 AM CDT - 09/30/2024 11:59 PM CDT [facility] ([facility]) [address] [place] [address] Altered mental status, unspecified altered mental status type Discharge Disposition: Discharge to home or self care 09/30/2024 [facility] [address] [place] [address] [place] [phone] Carlos Hatch MD 09/30/2024 [facility] [address] [place] [address] [place] [phone] Carlos Hatch MD 09/29/2024 [facility] [address] [place] [address] [place] [phone] Carlos Hatch MD 09/28/2024 [facility] [address] [place] [address] [place] [phone] Carlos Hatch MD 09/27/2024 [facility] [address] [place] [address] [place] [phone] Carlos Hatch MD 09/26/2024 Anticoagulation Telephone Call [facility] Cardiology [address] [facility] Office Building [address] [place] [address] Cora Salter RN 09/26/2024 [facility] [address] [facility] [address] [place] [phone] Carlos Hatch MD 09/25/2024 [facility] [address] [facility] [address], [place] [address] Carlos Hatch MD 09/24/2024 [facility] [address] [facility] [address] [place] [phone] Carlos Hatch MD 09/23/2024 [facility] [address] [place] [address] [place] [phone] Carlos Hatch MD 09/21/2024 Anticoagulation Telephone Call [facility] Trans[facility] Heart [address] [facility] [address] Mailstop [phone] [place] [address] Darlin Diaz RN 09/21/2024 Documentation [facility] Cardiology [address] [facility] Office Building [address] [place] [phone] Cora Salter, AGUSTINA 09/21/2024 Anticoagulation Telephone Call [facility] Cardiology [address] [facility] Office Building [address] [place] [address] Cora Salter, AGUSTINA 09/21/2024 [facility] [address] [facility] [address] [place] [phone] Carlos Hatch MD 09/12/2024 3:42 PM CDT - 09/20/2024 7:40 PM CDT [facility] [address] [place] [address] Francia Palmer MD Lavine, Kory Joshua, MD PhD 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 [address] Mailstop [phone] [place] [address] Cora Salter, AGUSTINA 09/07/2024 Telephone [facility] Transplant Heart [address] [place] [address] [address] Mailstop [phone] [place] [address] Alex Alejo 09/07/2024 Telephone [facility] Cardiology [address] [place] [address] for Advanced Medicine 8th [place] [address] [place] [address] Thompson Light MD PhD 09/07/2024 Telephone [facility] Cardiology [address] [place] [address] for Advanced Medicine 8th [place] [address] [place] [address] Thompson Light MD PhD 09/02/2024 Documentation [facility] Transplant Heart [address] [facility] [address] Mailstop [phone] [place] [address] Cora Salter RN 09/02/2024 Telephone [facility] Cardiology [address] [place] [address] Advanced Medicine 8th [place] [address] [place] [address] Thompson Light MD PhD 09/02/2024 Anticoagulation Telephone [facility] Trans[facility] Heart [address] [facility] [address] Mailstop [phone] [place] [address] Cora Salter, AGUSTINA 09/01/2024 Telephone [facility] Trans[facility] Heart [address] Mailstop [phone] [place] [address] Alex Alejo 09/01/2024 Telephone [facility] Cardiology [address] [facility] 8th [place] [address] [place] [address] Thompson Napoles MD 08/31/2024 Documentation [facility] [address] Mailstop [phone] [place] [address] Darlin Diaz, AGUSTINA 08/31/2024 Anticoagulation Telephone Call [facility] Heart [address] Mailstop [phone] [place] [address] Darlin Diaz, AGUSTINA 08/31/2024 Telephone [facility] Cardiology [address] [facility] 8th [place] [address] [place] [address] Thompson Napoles MD 08/30/2024 Telephone [facility] Heart [address] Mailstop [phone] [place] [address] Darlin Diaz, RN 08/29/2024 Documentation [facility] [address] Mailstop [phone] [place] [address] Darlin Diaz, RN 08/29/2024 Telephone [facility] Trans[facility] Heart [address] [facility] [address] Mail[address] [phone] [place] [address] Darlin Diaz, RN 08/29/2024 Orders Only [facility] Orthopaedic Surgery [facility] 6th [place] [address] [place] [address] Leyda Aguilar NP 08/28/2024 Orders Only [facility] Lab Interim [phone] Unknown, Notinfile 08/27/2024 Orders Only [facility] [phone] Unknown, Notinfile 08/26/2024 Orders Only [facility] [phone] Unknown, Notinfile 08/25/2024 Orders Only [facility] Orthopaedic Surgery [address] [facility] 6th [place] [address] [place] [address] Leyda Aguilar, SCALLOP CUTTER MACHINE 08/24/2024 Orders Only [facility] [phone] Medicine 08/23/2024 Orders Only [facility] [phone] Unknown, Notinfile 08/22/2024 Orders Only [facility] Orthopaedic Surgery [address] [facility] 6th [place] [address] [place] [address] Leyda Aguilaru, SCALLOP CUTTER MACHINE 08/18/2024 Orders Only [facility] Orthopaedic Surgery [address] [facility] 6th [place] [address] [place] [address] Leyda Aguilar, SCALLOP CUTTER MACHINE 08/16/2024 Telephone [facility] Cardiology [address] [facility] 8th [place] [address] [place] [address] Thompson Napoles MD 08/15/2024 4:35 PM CDT - 08/15/2024 11:59 PM CDT Hospital Encounter [facility] [address] [place] [address] Thompson Light MD PhD Discharge Disposition: Discharge to home or self care 08/15/2024 Anticoagulation Telephone Call [facility] Trans[facility] Heart [address] Mailstop [phone] [place] [address] Darlin Diaz RN 08/02/2024 4:13 PM CDT - 08/15/2024 4:29 PM CDT Hospital Encounter [facility] 1 [place] [address] Paris Aguila MD [place], Justin Curtis, MD PhD Thom Araujo MD Acute encephalopathy (Primary Dx); LVAD (left ventricular assist device) present (HCC); 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 8th [place] [address] [place] [address] Thompson Napoles MD 08/01/2024 Anticoagulation Telephone Call [facility] Transplant Heart [address] Mailstop [phone] [place] [address] Darlin Diaz RN 08/01/2024 Telephone [facility] Transplant Heart [address] Mailstop [phone] [place] [address] Ivett Richard from Last 3 Months Immunizations Immunization Administration Dates Next Due Influenza, Quadrivalent, Jenifer l Culture-based MDCK, Antibiotic Free, Intramuscular 03/04/2018 Influenza, Quadrivalent, Jenifer l Culture-based MDCK, Preservative Free, Antibiotic Free, Intramuscular 02/20/2020,03/03/2019 Influenza, Quadrivalent, Spl it, Preservative Free, Intramuscular 02/19/2017 Influenza, Unspecified 02/15/2017 Pneumococcal Conjugate, Unspecified 11/10/2012 Surgical History Surgery Date Site/Laterality Comments OTHER SURGICAL HISTORY abdominal surgery - pyloric stenosis OTHER SURGICAL HISTORY cardiac stents 1990, 09/2012 HERNIA REPAIR Hernia repair OTHER SURGICAL HISTORY kidney surgery- stent in lt and rt kidney EYE SURGERY Eye Surgery - -2013, 2014 (Added by TW Conv) HEART SURGERY Heart Surgery - -1991, 2000,2006, 2007, 2012, 2013, 2014 (Added by TW Conv) KIDNEY SURGERY Kidney Surgery - - 2012, (Added by TW Conv) HERNIA REPAIR Hernia Repair - - 1976 (Added by TW Conv) Medical History Medical History Date Comments Hypertension Hypertension Hx Other Medical Coranary heart disease Hx Other Medical Cataracts Type 2 diabetes mellitus (HCC) D iabetes type 2 Hx Other Medical Eye erythema Myocardial infarction (HCC) Myoc ardial infarction Hx Other Medical PLMD; Comments: MPLuis 11/23/2014 - Hx Other Medical Renal artery st enosis; Comments: MPB 11/23/2014 - Family History Medical History Relation Name Comments Diabetes type II Brother Type 2 Diab etes Mellitus - (Added by TW Conv) Cancer Father Family history of cancer - (Added by TW Conv) Coronary artery disease Father Carole nary artery disease; /Family history of coronary artery disease - (Added by TW Conv) Diabetes Father Family history of diabetes mellitus (DM) - (Added by TW Conv) Diabetes type II Father Type 2 Diab etes Mellitus - (Added by TW Conv) Heart failure Father Family history of heart failure - (Added by TW Conv) Hypertension Father Family history of hypertension - (Added by TW Conv) Heart disease Maternal Grandfather Heart Disease - Relation: Grandfather (Added by TW Conv) Migraines Mother Family history of migraine headaches - (Added by TW Conv) Heart disease Other 1 Family history of Cardiovascular disease; Diabetes type II Other 2 Type 2 Diab etes Mellitus - Relation: Grandparent (Added by TW Conv) Diabetes type II Other 3 Type 2 Diab etes Mellitus - Relation: Aunt (Added by TW Conv) Heart disease Other 4 Heart Disease - Relation: Aunt (Added by TW Conv) Hypertension Son Hypertension - (Added by TW Conv) Relation Name Status Comments Brother Father (Age 75) Maternal Grandfather Mother Other 1 Other 2 Other 3 Other 4 Son Social History Tobacco Use Types Packs/Day Years [...] materials from doctor or pharmacy Sometimes 07/04/2022 [facility] Utilities Answer Date Recorded In the past 12 months has th e Chalk[employer], gas, oil, or water [employer] threatened to shut off services in your [...] often do you attend chur ch or restoration services? Never 09/13/2024 Do you belong to any clubs o r organizations such as gnosticism groups, unions, fraternal or athletic groups, or [...] any time in the past 12 m [facility], were you homeless or living in [...] file Legal Sex Male 7:54 PM GAS JOCKEY Gender Identity Not on file Sexual Orientation Not on file Obstetrics History Last Filed Vital Signs Vital Sign Reading [...] 10/13/2024 10:19 AM CDT Plan of Treatment Health Maintenance Due Date Last Done Comments Foot Exam 1942 DTaP/Tdap/Td Vaccine (1 - Tdap) 1953 Hepatitis B Screening 1960 Zoster Vaccine (1 of 2) 1992 Well Visit 65+ 11/08/2007 Pneumococcal vaccine 65+ (2 of 2 - PPSV23) 01/05/2013 11/10/2012 Albumin Creatinine Ratio, Urine 01/02/2022 Dilated Eye Exam 10/29/2023 10/28/2022, 10/29/2021 Covid-19 Vaccine (3 - 2023-2 5 season) 2024 08/09/2020, 07/12/2020 Influenza Vaccine (Season Ended) 2025 02/20/2020, 03/03/2019, 03/04/2018, Additional history exists Hemoglobin A1C 02/02/2025 08/02/2024, 07/16, 05/25/2024, Additional history exists Lipid Panel 05/25/2025 05/25/2024, 04/18, 01/02/2021, Additional history exists Depression Screening 08/02/2025 08/02/2024 Fall Risk Assessment 09/20/2025 09/20/2024 eGFR 10/21/2025 10/21/2024, 09/16, 10/05/2024, Additional history exists Medical Devices Implanted Type Area Rental Car Ferry Driver Device Identifier Shelf Expiration Date Model / Serial / Lot [id number]-06/13/2014 Implanted:2014 by Sumaya Mitchell MD PhD (Quantity not on file) LVAD Heart [employer] Margarita Procedures Procedure Name Priority Date/Time Associated [...] AM CDT POCT GLUCOSE DEVICE Routine 08/06/2024 7:33 AM CDT EGFR Routine 08/06/2024 3:35 AM CDT PROTIME-INR Routine 08/06/2024 3:35 AM CDT CBC WITHOUT DIFFERENTIAL Routine 08/06/2024 3:35 AM CDT BASIC METABOLIC PANEL Routine 08/06/2024 3:35 AM CDT POCT GLUCOSE DEVICE Routine 08/06/2024 12:39 AM CDT POCT GLUCOSE DEVICE Routine 08/05/2024 7:33 PM CDT POCT GLUCOSE DEVICE Routine 08/05/2024 [...] LIPID PANEL Routine 05/25/2024 10:48 AM GAS JOCKEY DIABETIC EYE EXAM Routine 10/28/2022 4:1 0 PM CDT ALBUMIN CREATININE RATIO, URINE Routine 01/02/2021 Hyperlipidemia, unspecified hyperlipidemia type Type 2 diabetes mellitus with hyperglycemia, with long-term current use of insulin (HCC) Hypothyroidism, unspecified type from Last 3 Months or Most Recently Relevant to Health Maintenance Results * (ABNORMAL) Protime-INR (10/25/2024) INR 1.30(A) 0.90 - 1.10 EXTERNAL LAB Blood Historical Provider LAB BLOOD ORDERABLES Paulette michel Result EXTERNAL LAB * (ABNORMAL) CBC with [...] 35 Units/L [facility] SCRIBED eGFR in NonAfrican Omani 92 >=60 [facility] Globulin 2.4 1.9 - 3.7 g/dL (calc) [facility] Alb/glob ratio 1.4 1.0 - 2.5 [facility] Blood 10/21/2024 us Thompson Napoles MD LAB BLOOD ORDERABLES Fin al Result Performing Organization Address City/[facility] Co de Phone Number [facility] * (ABNORMAL) Protime-INR (10/18/2024) Pathologist [facility] INR 1.20(A) 0.90 - 1.10 EXTERNAL LAB Blood Result [facility] Historical Provider MD LAB BLOOD ORDERABLES Paulette l Result Performing Organization Address [facility] de Phone Number EXTERNAL LAB * (ABNORMAL) Protime-INR (10/14/2024) [facility] INR 1.20(A) 0.90 - 1.10 EXTERNAL LAB Blood Result [facility] Historical Provider MD LAB BLOOD ORDERABLES Paulette l Result Performing Organization Address [facility] de Phone Number EXTERNAL LAB * (ABNORMAL) CBC with auto differential (10/11/2024) [facility] SCRIBED WBC 9.5 3.8 - 10.8 k/cumm EXTERNAL LAB SCRIBED Hemoglobin 12.5(A) 13.2 - 17.1 g/dL EXTERNAL LAB SCRIBED Hematocrit 39.3 38.5 - 50.0 % EXTERNAL LAB SCRIBED Platelets 228 140 - 400 k/cumm EXTERNAL LAB Blood 10/11/2024 Result [facility] Thompson Napoles MD LAB BLOOD ORDERABLES Fin al Result Performing Organization Address [facility] Co de Phone Number EXTERNAL LAB * (ABNORMAL) Lactate dehydrogenase (LD) (10/11/2024) [facility] SCRIBED LDH 337(A) 120 - 250 IUnit/mL [facility] Blood 10/11/2024 Result [facility] Thompson Napoles MD LAB BLOOD ORDERABLES Fin al Result Performing Organization Address City/[facility] Co de Phone Number [facility] * (ABNORMAL) Comprehensive [...] 35 Units/L [facility] SCRIBED eGFR in NonAfrican [place] 86 >60 [facility] A/G Ratio 1.4 1.0 - 2.5 [facility] Blood 10/11/2024 us Thompson Napoles MD LAB BLOOD ORDERABLES Hi jailene Result - Final [facility] * (ABNORMAL) CS GLUCOSE (10/05/2024 5:04 AM CDT) Glucose 204(H) 70 - 199 mg/dL [facility] Comment: Interpretive Data Fasting glucose >/= 126 [...] was last revised 2022. Testing performed by: [facility], [address] [place] [address]., [id number] Blood 10/05/2024 5:04 AM CDT 10/05/2024 8:29 AM CDT us Carlos Hatch MD LAB BLOOD ORDERABLES Final Re sult Performing Organization Address City/[facility] Co de Phone Number [facility] Department [place] [address] * eGFR (10/05/2024 5:04 AM CDT) eGFR 66 >=60 mL/min/1. 73 m2 [facility] Comment: Interpretive Data Reference Interval Normal [...] was last reviewed 2021. Testing performed by: [facility], [address] [place] [address]., [id number] Blood 10/05/2024 5:04 AM CDT 10/05/2024 8:29 AM CDT us Carlos Hatch MD LAB BLOOD ORDERABLES Final Re sult Performing Organization Address City/[facility]/ZIP Co de Phone Number [facility] Department [place] [address] * (ABNORMAL) Differential, auto (10/05/2024 5:04 AM CDT) Neutrophil abs 5.20 1.50 - 6.50 K/cumm [facility] Comment:Testing performed by : [facility], [address] [place] [address]., [address] Imm gran abs 0.04 0.00 - 0.10 K/cumm [facility] Comment:Testing performed by : [facility], [address] [place] [address], [address] Lymphocyte abs 0.75(L) 0.80 - 3.30 K/cumm [facility] Comment:Testing performed by : [facility], [address] [place] [address]., [address] Monocyte abs 0.59 0.20 - 0.80 K/cumm [facility] Comment:Testing performed by : [facility], [address] [place] [address]., [address] Eosinophil abs 0.13 0.00 - 0.50 K/cumm [facility] Comment:Testing performed by : [facility], [address] [place] [address]., [address] Basophil abs 0.07 0.00 - 0.10 K/cumm [facility] Comment:Testing performed by : [facility], [address] [place] [address]., [address] Neutrophil pct 76.7 % [facility] Comment: Interpretive Data Percent cell count reference ranges are not reported, since discordance with absolute values may lead to misinterpretation of CBC data. Current Interpretive Data was last revised on 2017. Testing performed by: [facility], [address] [place] [address]., [address] Imm gran pct 0.6 % [facility] Comment: Interpretive Data Percent cell count reference ranges are not reported, since discordance with absolute values may lead to misinterpretation of CBC data. Current Interpretive Data was last revised on 2017. Testing performed by: [facility], [address] [place]., [address] Lymphocyte pct 11.1 % [facility] Comment: Interpretive Data Percent cell count reference ranges are not reported, since discordance with absolute values may lead to misinterpretation of CBC data. Current Interpretive Data was last revised on 2017. Testing performed by: [facility], [address] [place]., [address] Monocyte pct 8.7 % [facility] Comment: Interpretive Data Percent cell count reference ranges are not reported, since discordance with absolute values may lead to misinterpretation of CBC data. Current Interpretive Data was last revised on 2017. Testing performed by: [facility], [address] [place]., [address] Eosinophil pct 1.9 % [facility] Comment: Interpretive Data Percent cell count reference ranges are not reported, since discordance with absolute values may lead to misinterpretation of CBC data. Current Interpretive Data was last revised on 2017. Testing performed by: [facility], [address] [place]., [address] Basophil pct 1.0 % [facility] Comment: Interpretive Data Percent cell count reference ranges are not reported, since discordance with absolute values may lead to misinterpretation of CBC data. Current Interpretive Data was last revised on 2017. Testing performed by: [facility], [address] [place]., [address] Blood 10/05/2024 5:04 AM CDT 10/05/2024 8:09 AM CDT us Carlos Hatch MD LAB BLOOD ORDERABLES Final Re sult [facility] Department [place] [address] * (ABNORMAL) Comprehensive metabolic panel, without glucose (Outreach) (10/05/2024 5:04 AM CDT) Sodium 137 135 - 145 mmol/L [facility] Comment:Testing performed by : [facility], [address] [facility], [address] Potassium, pl 3.9 3.3 - 4.9 mmol/L [facility] Comment:Testing performed by : [facility], [address] [facility], [address] Chloride 100 97 - 110 mmol/L [facility] Comment:Testing performed by : [facility], [address] [facility], [address] CO2 25 22 - 32 mmol/L [facility] Comment:Testing performed by : [facility], [address] [facility], [address] Anion gap 12 2 - 15 mmol/L [facility] Comment:Testing performed by : [facility], [address] [facility], [address] BUN 24 6 - 25 mg/dL [facility] Comment:Testing performed by : [facility], [address] [facility], [address] Creatinine 1.12 0.80 - 1.30 mg/dL [facility] Comment:Testing performed by : [facility], [address] [facility], [address] Calcium 8.9 8.5 - 10.3 mg/dL [facility] Comment:Testing performed by : [facility], [address] [facility], [address] Protein, pl 6.1(L) 6.5 - 8.5 g/dL [facility] Comment:Testing performed by : [facility], 1 [facility], [address] Albumin 3.2(L) 3.5 - 5.0 g/dL [facility] Comment:Testing performed by : [facility], 1 [facility], [address] Bilirubin, total 0.4 0.1 - 1.2 mg/dL [facility] Comment:Testing performed by : [facility], [address] [facility], [address] Alk phos 93 40 - 130 Units/L [facility] Comment:Testing performed by : [facility], 1 [facility], [address] AST 23 10 - 50 Units/L [facility] Comment:Testing performed by : [facility], 1 [facility], [address] ALT 13 7 - 55 Units/L [facility] Comment:Testing performed by : [facility], 1 [facility], [address] Blood 10/05/2024 5:04 AM CDT 10/05/2024 8:29 AM CDT Carlos Hatch MD LAB BLOOD ORDERABLES Final Re sult [facility] Department [place] [address] * (ABNORMAL) CBC with auto differential (10/05/2024 5:04 AM CDT) WBC 6.78 3.80 - 9.90 K/cumm [facility] Comment:Testing performed by : [facility], [address] [place]., [address] Hgb 11.3(L) 13.0 - 17.5 g/dL [facility] Comment:Testing performed by : [facility], [address] [place]., [address] Hct 34.7(L) 38.9 - 50.3 % [facility] Comment:Testing performed by : [facility], 1 [facility], [address] Plt 219 150 - 400 K/cumm [facility] Comment:Testing performed by : [facility], 1 [facility], [address] MPV 11.6 9.1 - 12.3 fL [facility] Comment:Testing performed by : [facility], 1 [facility], [address] RBC 4.03(L) 4.30 - 5.80 M/cumm [facility] Comment:Testing performed by : [facility], 1 [facility], [address] MCV 86.1 81.3 - 96.4 fL [facility] Comment:Testing performed by : [facility], 1 [facility], [address] MCH 28.0 27.1 - 33.3 pg [facility] Comment:Testing performed by : [facility], 1 [facility], [address] MCHC 32.6 32.3 - 35.7 g/dL [facility] Comment:Testing performed by : [facility], 1 [facility], [address] RDW CV 15.9(H) 11.1 - 14.9 % [facility] Comment:Testing performed by : [facility], 1 [facility], [address] RDW SD 49.5(H) 35.7 - 48.1 fL [facility] Comment:Testing performed by : [facility], 1 [facility], [address] NRBC abs 0.00 0.00 - 0.01 K/cumm [facility] Comment:Testing performed by : [facility], 1 [facility], [address] Blood 10/05/2024 5:04 AM CDT 10/05/2024 8:09 AM CDT us Carlos Hatch MD LAB BLOOD ORDERABLES Final Re sult [facility] Department [place] [address] * (ABNORMAL) Protime-INR (10/04/2024 4:15 AM CDT) PT 24.1(H) 9.7 - 13.0 sec [facility] Comment:Testing performed by : [facility], [address] [place] [address]., [address] INR 2.20(H) 0.90 - 1.20 [facility] Comment: Interpretive data Oral anticoagulant therapeutic ranges: Venous thromboembolism prophylaxis or treatment: 2.0-3.0 CARDIOLOGY Standard range: 2.0-3.0 High-intensity range: 2.5-3.5 Refer to indication-specific guidelines for appropriate target ranges for prosthetic heart valve replacement. Current interpretive data was last revised on 2019. Testing performed by: [facility], [address] [place] [address]., [address] Blood 10/04/2024 4:15 AM CDT 10/04/2024 8:31 AM CDT Carlos Hatch MD LAB BLOOD ORDERABLES Final Re sult Performing Organization Address [facility] Co de Phone Number [facility] Department [place] [address] * (ABNORMAL) Protime-INR (10/03/2024 2:27 PM CDT) PT 28.8(H) 9.7 - 13.0 sec [facility] Comment:Testing performed by : [facility], [address] [place] [address]., [address] INR 2.61(H) 0.90 - 1.20 [facility] Comment: Interpretive data Oral anticoagulant therapeutic ranges: Venous thromboembolism prophylaxis or treatment: 2.0-3.0 CARDIOLOGY Standard range: 2.0-3.0 High-intensity range: 2.5-3.5 Refer to indication-specific guidelines for appropriate target ranges for prosthetic heart valve replacement. Current interpretive data was last revised on 2019. Testing performed by: [facility], [address] [place] [address]., [address] Blood 10/03/2024 2:27 PM CDT 10/03/2024 2:41 PM CDT Carlos Hatch MD LAB BLOOD ORDERABLES Final Re sult Performing Organization Address City/[facility] Co de Phone Number [facility] [place] [address] * (ABNORMAL) Protime-INR (10/02/2024 5:57 AM CDT) PT 26.4(H) 9.7 - 13.0 sec [facility] Comment:Testing performed by : [facility], [address] [place] [address]., [address] INR 2.40(H) 0.90 - 1.20 [facility] Comment: Interpretive data Oral anticoagulant therapeutic ranges: Venous thromboembolism prophylaxis or treatment: 2.0-3.0 CARDIOLOGY Standard range: 2.0-3.0 High-intensity range: 2.5-3.5 Refer to indication-specific guidelines for appropriate target ranges for prosthetic heart valve replacement. Current interpretive data was last revised on 2019. Testing performed by: [facility], [address] [place] [address]., [address] Blood 10/02/2024 5:57 AM CDT 10/02/2024 7:54 AM CDT us Carlos Hatch MD LAB BLOOD ORDERABLES Final Re sult Performing Organization Address City/[facility]/ZIP Co de Phone Number [facility] Department [place] [address] * Ammonia (10/01/2024 6:51 AM CDT) Ammonia <20 <=50 mcmol/L [facility] Comment: Repeated and Verified Testing performed by: [facility], [address] [place] [address]., [address] Blood 10/01/2024 6:51 AM CDT 10/01/2024 7:36 AM CDT us Notinfile Unknown LAB BLOOD ORDERABLES Final Res ult Performing Organization Address [facility] Co de Phone Number [facility] Department [place] [address] * (ABNORMAL) Protime-INR (10/01/2024 6:24 AM CDT) PT 27.5(H) 9.7 - 13.0 sec [facility] Comment:Testing performed by : [facility] [facility], [address] [place] [address]., [id number] INR 2.50(H) 0.90 - 1.20 [facility] Comment: Interpretive data Oral anticoagulant therapeutic ranges: Venous thromboembolism prophylaxis or treatment: 2.0-3.0 CARDIOLOGY Standard range: 2.0-3.0 High-intensity range: 2.5-3.5 Refer to indication-specific guidelines for appropriate target ranges for prosthetic heart valve replacement. Current interpretive data was last revised on 2019. Testing performed by: [facility], [address] [place] [address]., [address] Blood 10/01/2024 6:24 AM CDT 10/01/2024 7:33 AM CDT us Carlos Hatch MD LAB BLOOD ORDERABLES Final Re sult Performing Organization Address [facility] Co de Phone Number [facility] Department [place] [address] * CT Head WO Contrast (09/30/2024 12:01 [...] it. Electronically signed by: Bernadette Lopez M.D. Carlos Hatch MD IMG CT PROCEDURES Final Resul t * Ammonia (09/30/2024 5:31 AM CDT) Ammonia See Comment <=50 mcmol/L [facility] Comment: Credited: Specimen too old Testing performed by: [address] [address] Blood 09/30/2024 5:31 AM CDT 09/30/2024 7:34 AM CDT Carlos Hatch MD LAB BLOOD ORDERABLES Final Re sult Performing Organization Address City/[facility]/ZIP Co de Phone Number [facility] Department [place] [address] * (ABNORMAL) Lactate (09/29/2024 6:59 PM CDT) Lactate 2.2(H) 0.7 - 2.0 mmol/L [facility] Comment:Testing performed by : [address] [address] Blood 09/29/2024 6:59 PM CDT 09/29/2024 7:22 PM CDT Narrative [facility] - 09/29/2024 7:44 PM CDT TSH w/ reflex Notinfile Unknown LAB BLOOD ORDERABLES Final Res ult Performing Organization Address City/[facility]/ZIP Co de Phone Number [facility] Department [place] [address] * TSH (09/29/2024 6:00 PM CDT) Thyroid Stimulating Hormone 3.47 0.30 - 4.20 mcIUnit/mL [facility] Comment:Testing performed by : [facility], [address] [place]., [address] Blood 09/29/2024 6:00 PM CDT 09/29/2024 8:17 PM CDT Narrative [facility] - 09/29/2024 9:06 PM CDT TSH w/ reflex us Notinfile Unknown LAB BLOOD ORDERABLES Final Res ult Performing Organization Address [facility]/ZIP Co de Phone Number [facility] Department [place] [address] * (ABNORMAL) Protime-INR (09/29/2024 7:12 AM CDT) Pathologist [facility] [place] PT 20.8(H) 9.7 - 13.0 sec [facility] Comment:Testing performed by : [facility], [address] [place] [address], [place]., [address] INR 1.90(H) 0.90 - 1.20 [facility] Comment: Interpretive data Oral anticoagulant therapeutic ranges: Venous thromboembolism prophylaxis or treatment: 2.0-3.0 CARDIOLOGY Standard range: 2.0-3.0 High-intensity range: 2.5-3.5 Refer to indication-specific guidelines for appropriate target ranges for prosthetic heart valve replacement. Current interpretive data was last revised on 2019. Testing performed by: [facility], [address] [place] [address]., [address] Blood 09/29/2024 7:12 AM CDT 09/29/2024 12:39 PM CDT us Carlos Hatch MD LAB BLOOD ORDERABLES Final Re sult Performing Organization Address City/[facility]/ZIP Co de Phone Number [facility] Department [place] [address] * (ABNORMAL) Protime-INR (09/28/2024 3:37 PM CDT) PT 19.4(H) 9.7 - 13.0 sec [facility] Comment:Testing performed by : [facility], [address] [place]., [address] INR 1.78(H) 0.90 - 1.20 [facility] Comment: Interpretive data Oral anticoagulant therapeutic ranges: Venous thromboembolism prophylaxis or treatment: 2.0-3.0 CARDIOLOGY Standard range: 2.0-3.0 High-intensity range: 2.5-3.5 Refer to indication-specific guidelines for appropriate target ranges for prosthetic heart valve replacement. Current interpretive data was last revised on 2019. Testing performed by: [facility], [address] [place] [address]., [address] Blood 09/28/2024 3:37 PM CDT 09/28/2024 7:46 PM CDT Narrative [facility] - 09/28/2024 8:10 PM CDT no blood sample recieved by lab at 1230 - reorder new INR us Notinfile Unknown LAB BLOOD ORDERABLES Final Res ult [facility] Department [place] [address] * (ABNORMAL) CS GLUCOSE (09/28/2024 6:34 AM CDT) Glucose 203(H) 70 - 199 mg/dL [facility] Comment: Interpretive Data Fasting glucose >/= 126 [...] was last revised 2022. Testing performed by: [facility], [address] [place]., [address] Blood 09/28/2024 6:34 AM CDT 09/28/2024 1:06 PM CDT us Carlos Hatch MD LAB BLOOD ORDERABLES Final Re sult [facility] Department [place] [address] * eGFR (09/28/2024 6:34 AM CDT) eGFR 89 >=60 mL/min/1. 73 m2 [facility] Comment: Interpretive Data Reference Interval Normal [...] was last reviewed 2021. Testing performed by: [facility], [address] [place] [address]., [address] Blood 09/28/2024 6:34 AM CDT 09/28/2024 1:05 PM CDT us Carlos Hatch MD LAB BLOOD ORDERABLES Final Re sult [facility] Department [place] [address] * (ABNORMAL) Differential, auto (09/28/2024 6:34 AM CDT) Neutrophil abs 5.76 1.50 - 6.50 K/cumm [facility] Comment:Testing performed by : [facility], [address] [place] [address]., [address] Imm gran abs 0.04 0.00 - 0.10 K/cumm [facility] Comment:Testing performed by : [facility], [address] [place] [address]., [address] Lymphocyte abs 0.75(L) 0.80 - 3.30 K/cumm [facility] Comment:Testing performed by : [facility], [address] [place] [address]., [address] Monocyte abs 0.54 0.20 - 0.80 K/cumm [facility] Comment:Testing performed by : [facility], [address] [place] [address]., [address] Eosinophil abs 0.07 0.00 - 0.50 K/cumm [facility] Comment:Testing performed by : [facility], [address] [place] [address]., [address] Basophil abs 0.06 0.00 - 0.10 K/cumm [facility] Comment:Testing performed by : [facility], [address] [place] [address]., [address] Neutrophil pct 79.7 % [facility] Comment: Interpretive Data Percent cell count reference ranges are not reported, since discordance with absolute values may lead to misinterpretation of CBC data. Current Interpretive Data was last revised on 2017. Testing performed by: [facility], [address] [place]., [address] Imm gran pct 0.6 % [facility] Comment: Interpretive Data Percent cell count reference ranges are not reported, since discordance with absolute values may lead to misinterpretation of CBC data. Current Interpretive Data was last revised on 2017. Testing performed by: [facility], [address] [place]., [address] Lymphocyte pct 10.4 % [facility] Comment: Interpretive Data Percent cell count reference ranges are not reported, since discordance with absolute values may lead to misinterpretation of CBC data. Current Interpretive Data was last revised on 2017. Testing performed by: [facility], [address] [place]., [address] Monocyte pct 7.5 % [facility] Comment: Interpretive Data Percent cell count reference ranges are not reported, since discordance with absolute values may lead to misinterpretation of CBC data. Current Interpretive Data was last revised on 2017. Testing performed by: [facility], [address] [place] [address]., [address] Eosinophil pct 1.0 % [facility] Comment: Interpretive Data Percent cell count reference ranges are not reported, since discordance with absolute values may lead to misinterpretation of CBC data. Current Interpretive Data was last revised on 2017. Testing performed by: [facility], [address] [place]., [address] Basophil pct 0.8 % [facility] Comment: Interpretive Data Percent cell count reference ranges are not reported, since discordance with absolute values may lead to misinterpretation of CBC data. Current Interpretive Data was last revised on 2017. Testing performed by: [facility], [address] [place]., [address] Blood 09/28/2024 6:34 AM CDT 09/28/2024 1:05 PM CDT us Carlos Hatch MD LAB BLOOD ORDERABLES Final Re sult [facility] Department [place] [address] * (ABNORMAL) Comprehensive metabolic panel, without glucose (Outreach) (09/28/2024 6:34 AM CDT) Sodium 134(L) 135 - 145 mmol/L [facility] Comment:Testing performed by : [facility], [address] [facility], [address] Potassium, pl 4.0 3.3 - 4.9 mmol/L [facility] Comment:Testing performed by : [facility], [address] [facility], [address] Chloride 96(L) 97 - 110 mmol/L [facility] Comment:Testing performed by : [facility], [address] [facility], [address] CO2 26 22 - 32 mmol/L [facility] Comment:Testing performed by : [facility], [address] [facility], [address] Anion gap 12 2 - 15 mmol/L [facility] Comment:Testing performed by : [facility], [address] [facility], [address] BUN 27(H) 6 - 25 mg/dL [facility] Comment:Testing performed by : [facility], [address] [facility], [address] Creatinine 0.81 0.80 - 1.30 mg/dL [facility] Comment:Testing performed by : [facility], [address] [facility], [address] Calcium 9.1 8.5 - 10.3 mg/dL [facility] Comment:Testing performed by : [facility], [address] [facility], [address] Protein, pl 7.2 6.5 - 8.5 g/dL [facility] Comment:Testing performed by : [facility], [address] [facility], [address] Albumin 3.6 3.5 - 5.0 g/dL [facility] Comment:Testing performed by : [facility], [address] [facility], [address] Bilirubin, total 0.6 0.1 - 1.2 mg/dL [facility] Comment:Testing performed by : [facility], [address] [facility], [address] Alk phos 109 40 - 130 Units/L [facility] Comment:Testing performed by : [facility], [address] [facility], [address] AST 35 10 - 50 Units/L [facility] Comment:Testing performed by : [facility], [address] [facility], [address] ALT 15 7 - 55 Units/L [facility] Comment:Testing performed by : [facility], [address] [facility], [address] Blood 09/28/2024 6:34 AM CDT 09/28/2024 1:05 PM CDT us Carlos Hatch MD LAB BLOOD ORDERABLES Final Re sult [facility] Department [place] [address] * (ABNORMAL) CBC with auto differential (09/28/2024 6:34 AM CDT) WBC 7.22 3.80 - 9.90 K/cumm [facility] Comment:Testing performed by : [facility], [address] [place] [address] Hgb 13.3 13.0 - 17.5 g/dL [facility] Comment:Testing performed by : [facility], [address] [facility], [address] Hct 39.8 38.9 - 50.3 % [facility] Comment:Testing performed by : [facility], [address] [facility], [address] Plt 205 150 - 400 K/cumm [facility] Comment:Testing performed by : [facility], [address] [facility], [address] MPV 11.5 9.1 - 12.3 fL [facility] Comment:Testing performed by : [facility], [address] [facility], [address] RBC 4.65 4.30 - 5.80 M/cumm [facility] Comment:Testing performed by : [facility], [address] [facility], [address] MCV 85.6 81.3 - 96.4 fL [facility] Comment:Testing performed by : [facility], [address] [facility], [address] MCH 28.6 27.1 - 33.3 pg [facility] Comment:Testing performed by : [facility], [address] [facility], [address] MCHC 33.4 32.3 - 35.7 g/dL [facility] Comment:Testing performed by : [facility], [address] [facility], [address] RDW CV 16.0(H) 11.1 - 14.9 % [facility] Comment:Testing performed by : [facility], [address] [facility], [address] RDW SD 49.1(H) 35.7 - 48.1 fL [facility] Comment:Testing performed by : [facility], [address] [facility], [address] NRBC abs 0.00 0.00 - 0.01 K/cumm [facility] Comment:Testing performed by : [facility], [address] [facility], [address] Blood 09/28/2024 6:34 AM CDT 09/28/2024 1:05 PM CDT us Carlos Hatch MD LAB BLOOD ORDERABLES Final Re sult Performing Organization Address [facility]/ZIP Co de Phone Number [facility] [place] [address] * (ABNORMAL) Protime-INR (09/28/2024 6:34 AM CDT) PT 20.5(H) 9.7 - 13.0 sec [facility] Comment:Testing performed by : [facility], [address] [place] [address]., [address] INR 1.87(H) 0.90 - 1.20 [facility] Comment: Interpretive data Oral anticoagulant therapeutic ranges: Venous thromboembolism prophylaxis or treatment: 2.0-3.0 CARDIOLOGY Standard range: 2.0-3.0 High-intensity range: 2.5-3.5 Refer to indication-specific guidelines for appropriate target ranges for prosthetic heart valve replacement. Current interpretive data was last revised on 2019. Testing performed by: [facility], [address] [place] [address]., [address] Blood 09/28/2024 6:34 AM CDT 09/28/2024 2:02 PM CDT Carlos Hatch MD LAB BLOOD ORDERABLES Final Re sult Performing Organization Address [facility] Co de Phone Number [facility] [place] [address] * (ABNORMAL) Protime-INR (09/27/2024 5:05 PM CDT) PT 21.8(H) 9.7 - 13.0 sec [facility] Comment:Testing performed by : [facility], [address] [place] [address]., [address] INR 1.99(H) 0.90 - 1.20 [facility] Comment: Interpretive data Oral anticoagulant therapeutic ranges: Venous thromboembolism prophylaxis or treatment: 2.0-3.0 CARDIOLOGY Standard range: 2.0-3.0 High-intensity range: 2.5-3.5 Refer to indication-specific guidelines for appropriate target ranges for prosthetic heart valve replacement. Current interpretive data was last revised on 2019. Testing performed by: [facility], [address] [place] [address]., [address] Blood 09/27/2024 5:05 PM CDT 09/27/2024 5:13 PM CDT [facility] LAB BLOOD ORDERABLES Final Resul t Performing Organization Address [facility] Co de Phone Number [facility] Department [place] [address] * (ABNORMAL) CS GLUCOSE (09/27/2024 5:00 AM CDT) [facility] Signature Glucose 223(H) 70 - 199 mg/dL [facility] Comment: Interpretive Data Fasting glucose >/= [...] was last revised 2022. Testing performed by: [facility], [address] [place] [address]., [address] Blood 09/27/2024 5:00 AM CDT 09/27/2024 6:57 AM CDT Carlos Hatch MD LAB BLOOD ORDERABLES Final Re sult Performing Organization Address [facility]/ZIP Co de Phone Number [facility] Department [place] [address] * (ABNORMAL) CS BASIC METABOLIC PANEL (09/27/2024 5:00 AM CDT) Sodium 134(L) 135 - 145 mmol/L [facility] Comment:Testing performed by : [facility], [address] [place]., [address] Potassium, pl 4.0 3.3 - 4.9 mmol/L [facility] Comment:Testing performed by : [facility], [address] [facility], [address] Chloride 97 97 - 110 mmol/L [facility] Comment:Testing performed by : [facility], [address] [facility], [address] CO2 28 22 - 32 mmol/L [facility] Comment:Testing performed by : [facility], [address] [facility], [address] Anion gap 9 2 - 15 mmol/L [facility] Comment:Testing performed by : [facility], [address] [facility], [address] BUN 38(H) 6 - 25 mg/dL [facility] Comment:Testing performed by : [facility], [address] [facility], [address] Creatinine 1.05 0.80 - 1.30 mg/dL [facility] Comment:Testing performed by : [facility], [address] [facility], [address] Calcium 9.5 8.5 - 10.3 mg/dL [facility] Comment:Testing performed by : [facility], [address] [facility], [address] Blood 09/27/2024 5:00 AM CDT 09/27/2024 6:57 AM CDT us Carlos Hatch MD LAB BLOOD ORDERABLES Final Re sult [facility] Department [place] [address] * eGFR (09/27/2024 5:00 AM CDT) eGFR 71 >=60 mL/min/1. 73 m2 [facility] Comment: [...] was last reviewed 2021. Testing performed by: [facility], [address] [place] [address]., [address] Blood 09/27/2024 5:00 AM CDT 09/27/2024 7:39 AM CDT us Carlos Hatch MD LAB BLOOD ORDERABLES Final Re sult [facility] Department [place] [address] * (ABNORMAL) Protime-INR (09/26/2024 5:25 AM CDT) PT 25.0(H) 9.7 - 13.0 sec [facility] Comment:Testing performed by : [facility], [address] [place] [address]., [address] INR 2.28(H) 0.90 - 1.20 [facility] Comment: Interpretive data Oral anticoagulant therapeutic ranges: Venous thromboembolism prophylaxis or treatment: 2.0-3.0 CARDIOLOGY Standard range: 2.0-3.0 High-intensity range: 2.5-3.5 Refer to indication-specific guidelines for appropriate target ranges for prosthetic heart valve replacement. Current interpretive data was last revised on 2019. Testing performed by: [facility], [address] [place] [address]., [address] Blood 09/26/2024 5:25 AM CDT 09/26/2024 7:28 AM CDT us Carlos Hatch MD LAB BLOOD ORDERABLES Final Re sult [facility] Department [place] [address] * (ABNORMAL) Urinalysis reflex to microscopic and culture Urine (09/26/2024 5:18 AM CDT) Color, ur Yellow Yellow [facility] Comment:Testing performed by : [facility], [address] [place] [address]., [address] Clarity, ur Clear Clear [facility] Comment:Testing performed by : [facility], [address] [place] [address]., [address] Specific gravity, ur 1.028 1.003 - 1.030 [facility] Comment:Testing performed by : [facility], [address] [place] [address]., [address] pH, urine 5.5 [facility] Comment: Interpretive Data Urine pH is affected by diet, medications, systemic acid-base disturbances, and renal tubular function. pH may affect urinary stone formation. For example, urine pH below 6.0 may help reduce the tendency for calcium phosphate stones and pH greater than 6.0 may reduce the tendency for uric acid stone formation. Source: [email or web address] Current Interpretive Data was last revised on 2017 Testing performed by: [facility], [address] [place] [address]., [address] Protein, ur ql 2+(A) Negative [facility] Comment:Testing performed by : [facility], [address] [place] [address] Glucose, ur ql Trace(A) Negative [facility] Comment:Testing performed by : [facility], [address] [place] [address] Ketones, ur Trace Negative [facility] Comment:Testing performed by : [facility], [address] [place] [address] Bilirubin, ur Negative Negative [facility] Comment:Testing performed by : [facility], [address] [place] [address] Blood, ur 1+(A) Negative [facility] Comment:Testing performed by : [facility], [address] [place] [address], [address] Urobilinogen, ur 2.0(A) <2.0 mg/dL [facility] Comment:Testing performed by : [facility], [address] [place] [address] Nitrite, ur Negative Negative [facility] Comment:Testing performed by : [facility], [address] [place] [address] Leukocyte esterase, ur Negative Negative [facility] Comment:Testing performed by : [facility], [address] [place] [address]., [address] UA reflex comment Reflex to microscopic UA will be performed. [facility] Comment:Testing performed by : [facility], [address] [place] [address]., [address] Urine 09/26/2024 5:18 AM CDT 09/26/2024 7:35 AM CDT us Carlos Hatch MD LAB MICROBIOLOGY - GENERAL OR DERABLES Final Result [facility] Department [place] [address] * (ABNORMAL) Urinalysis, microscopic only (09/26/2024 5:18 AM CDT) WBC, ur 0-5 0 - 5 /HPF [facility] Comment:Testing performed by : [facility], [address] [place] [address] RBC, ur 11-20(A) 0 - 2 /HPF [facility] Comment:Testing performed by : [facility], [address] [facility], [address] Mucous, ur Present(A) [facility] Comment:Testing performed by : [facility], [address] [place] [address] Hyaline casts, ur >50(A) 0 - 10 /LPF [facility] Comment:Testing performed by : [facility], [address] [place] [address], [address] Culture Reflex Comment Reflex conditions for urine culture (WBC >10) not met. [facility] Comment:Testing performed by : [facility], [address] [place] [address] Urine 09/26/2024 5:18 AM CDT 09/26/2024 7:35 AM CDT us Carlos Hatch MD LAB URINE ORDERABLES Final Re sult [facility] Department [place] [address] * Blood culture Blood (09/25/2024 9:20 AM CDT) Report Final Report: No growth [facility] Comment:Testing performed by : [facility], [address] [place] [address]., [address] Blood 09/25/2024 9:20 AM CDT 09/26/2024 3:08 PM CDT Narrative [facility] - 09/29/2024 [...] performance characteristics have been verified by the [facility]. For questions about this culture, contact the Microbiology Laboratory at [phone]. Interpretive data was last revised on 24. us Notinfile Unknown LAB MICROBIOLOGY - GENERAL ORD ERABLES Final Result [facility] Department [place] [address] * Blood culture Blood (09/25/2024 9:20 AM CDT) Report Final Report: Test canceled; patient credited. See new accession number [id number] Blood 09/25/2024 9:20 AM CDT 09/25/2024 3:25 [...] performance characteristics have been verified by the [facility]. For questions about this culture, contact the Microbiology Laboratory at [phone]. Interpretive data was last revised on 24. us Notinfile Unknown LAB MICROBIOLOGY - GENERAL ORD ERABLES Final Result [facility] Department [place] [address] * Blood culture Blood (09/25/2024 9:15 AM CDT) Report Final Report: No growth [facility] Comment:Testing performed by : [facility], [address] [facility], [place]., [address] Blood 09/25/2024 9:15 AM CDT 09/26/2024 3:07 PM CDT [facility] - 09/29/2024 4:00 PM CDT 1. Blood [...] performance characteristics have been verified by the [facility]. For questions about this culture, contact the Microbiology Laboratory at [phone]. Interpretive data was last revised on 24. us Notinfile Unknown LAB MICROBIOLOGY - GENERAL ORD ERABLES Final Result [facility] Department [place] [address] * Blood culture Blood (09/25/2024 9:15 AM CDT) Report Final Report: Test canceled; patient credited. See new accession number [id number] Blood 09/25/2024 9:15 AM CDT 09/25/2024 3:31 [...] performance characteristics have been verified by the [facility]. For questions about this culture, contact the Microbiology Laboratory at [phone]. Interpretive data was last revised on 24. us Notinfile Unknown LAB MICROBIOLOGY - GENERAL ORD ERABLES Final Result Performing Organization Address [facility] Co de Phone Number [facility] Department [place] [address] * (ABNORMAL) CS GLUCOSE (09/25/2024 9:00 AM CDT) Glucose 296(H) 70 - 199 mg/dL [facility] Comment: Interpretive Data Fasting glucose >/= [...] was last revised 2022. Testing performed by: [facility], [address] [facility], [place]., [address] Blood 09/25/2024 9:00 AM CDT 09/25/2024 3:31 PM CDT Result [facility] Medicine LAB BLOOD ORDERABLES Final Resul t Performing Organization Address [facility] Co de Phone Number FR[facility]IA [facility] Liliya [facility] Department [place] [address] * eGFR (09/25/2024 9:00 AM CDT) eGFR 65 >=60 mL/min/1. 73 m2 [facility] Comment: Interpretive Data Reference Interval Normal [...] was last reviewed 2021. Testing performed by: [facility], [address] [place] [address]., [address] Blood 09/25/2024 9:00 AM CDT 09/25/2024 4:02 PM CDT Medicine LAB BLOOD ORDERABLES Final Resul t [facility] One [facility] Department [place] [address] * (ABNORMAL) Differential, auto (09/25/2024 9:00 AM CDT) Neutrophil abs 8.94(H) 1.50 - 6.50 K/cumm [facility] Comment:Testing performed by : [facility], [address] [place] [address]., [address] Imm gran abs 0.04 0.00 - 0.10 K/cumm [facility] Comment:Testing performed by : [facility], [address] [place] [address]., [address] Lymphocyte abs 0.45(L) 0.80 - 3.30 K/cumm [facility] Comment:Testing performed by : [facility], [address] [place] [address]., [address] Monocyte abs 0.55 0.20 - 0.80 K/cumm [facility] Comment:Testing performed by : [address], [place]., [address] Eosinophil abs 0.00 0.00 - 0.50 K/cumm [facility] Comment:Testing performed by : [facility], [address] [place]., [address] Basophil abs 0.04 0.00 - 0.10 K/cumm [facility] Comment:Testing performed by : [facility], [address] [place]., [address] Neutrophil pct 89.2 % [facility] Comment: Interpretive Data Percent cell count reference ranges are not reported, since discordance with absolute values may lead to misinterpretation of CBC data. Current Interpretive Data was last revised on 2017. Testing performed by: [facility], [address] [place]., [address] Imm gran pct 0.4 % [facility] Comment: Interpretive Data Percent cell count reference ranges are not reported, since discordance with absolute values may lead to misinterpretation of CBC data. Current Interpretive Data was last revised on 2017. Testing performed by: [facility], [address] [place] [address]., [address] Lymphocyte pct 4.5 % [facility] Comment: Interpretive Data Percent cell count reference ranges are not reported, since discordance with absolute values may lead to misinterpretation of CBC data. Current Interpretive Data was last revised on 2017. Testing performed by: [facility], [address] [place] [address]., [address] Monocyte pct 5.5 % [facility] Comment: Interpretive Data Percent cell count reference ranges are not reported, since discordance with absolute values may lead to misinterpretation of CBC data. Current Interpretive Data was last revised on 2017. Testing performed by: [facility], [address] [place]., [address] Eosinophil pct 0.0 % [facility] Comment: Interpretive Data Percent cell count reference ranges are not reported, since discordance with absolute values may lead to misinterpretation of CBC data. Current Interpretive Data was last revised on 2017. Testing performed by: [facility], [address] [place]., [address] Basophil pct 0.4 % [facility] Comment: Interpretive Data Percent cell count reference ranges are not reported, since discordance with absolute values may lead to misinterpretation of CBC data. Current Interpretive Data was last revised on 2017. Testing performed by: [facility], [address] [place]., [address] Blood 09/25/2024 9:00 AM CDT 09/25/2024 3:30 PM CDT [facility] LAB BLOOD ORDERABLES Final Resul t [facility] One [facility] Department [place] [address] * (ABNORMAL) Comprehensive metabolic panel, without glucose (Outreach) (09/25/2024 9:00 AM CDT) Sodium 135 135 - 145 mmol/L [facility] Comment:Testing performed by : [facility], [address] [place]., [address] Potassium, pl 3.7 3.3 - 4.9 mmol/L [facility] Comment:Testing performed by : [facility], [address] [place]., [address] Chloride 96(L) 97 - 110 mmol/L [facility] Comment:Testing performed by : [facility], [address] [place]., [address] CO2 23 22 - 32 mmol/L [facility] Comment:Testing performed by : [facility], [address] [place]., [address] Anion gap 16(H) 2 - 15 mmol/L [facility] Comment:Testing performed by : [facility], [address] [place]., [address] BUN 25 6 - 25 mg/dL [facility] Comment:Testing performed by : [facility], [address] [facility], [address] Creatinine 1.13 0.80 - 1.30 mg/dL [facility] Comment:Testing performed by : [facility], [address] [facility], [address] Calcium 8.9 8.5 - 10.3 mg/dL [facility] Comment:Testing performed by : [facility], [address] [facility], [address] Protein, pl 6.7 6.5 - 8.5 g/dL [facility] Comment:Testing performed by : [facility], [address] [facility], [address] Albumin 3.4(L) 3.5 - 5.0 g/dL [facility] Comment:Testing performed by : [facility], [address] [facility], [address] Bilirubin, total 1.0 0.1 - 1.2 mg/dL [facility] Comment:Testing performed by : [facility], [address] [facility], [address] Alk phos 105 40 - 130 Units/L [facility] Comment:Testing performed by : [facility], [address] [facility], [address] AST 24 10 - 50 Units/L [facility] Comment:Testing performed by : [facility], [address] [place] [address], [address] ALT 16 7 - 55 Units/L [facility] Comment:Testing performed by : [facility], [address] [place] [address], [address] Blood 09/25/2024 9:00 AM CDT 09/25/2024 3:31 PM CDT Medicine LAB BLOOD ORDERABLES Final Resul t [facility] One [facility] Department [place] [address] * (ABNORMAL) CBC with auto differential (09/25/2024 9:00 AM CDT) WBC 10.02(H) 3.80 - 9.90 K/cumm [facility] Comment:Testing performed by : [facility], [address] [place] [address], [address] Hgb 12.5(L) 13.0 - 17.5 g/dL [facility] Comment:Testing performed by : [facility], [address] [facility], [address] Hct 38.3(L) 38.9 - 50.3 % [facility] Comment:Testing performed by : [facility], [address] [place] [address], [address] Plt 244 150 - 400 K/cumm [facility] Comment:Testing performed by : [facility], [address] [place] [address], [address] MPV 11.4 9.1 - 12.3 fL [facility] Comment:Testing performed by : [facility], [address] [facility], [address] RBC 4.45 4.30 - 5.80 M/cumm [facility] Comment:Testing performed by : [facility], [address] [place] [address], [address] MCV 86.1 81.3 - 96.4 fL [facility] Comment:Testing performed by : [facility], [address] [place] [address], [address] MCH 28.1 27.1 - 33.3 pg [facility] Comment:Testing performed by : [facility], [address] [place] [address], [address] MCHC 32.6 32.3 - 35.7 g/dL [facility] Comment:Testing performed by : [facility], [address] [place] [address], [place]., [address] RDW CV 15.9(H) 11.1 - 14.9 % [facility] Comment:Testing performed by : [facility], [address] [place]., [address] RDW SD 49.4(H) 35.7 - 48.1 fL [facility] Comment:Testing performed by : [facility], [address] [place]., [address] NRBC abs 0.00 0.00 - 0.01 K/cumm [facility] Comment:Testing performed by : [facility], [address] [facility], [address] Blood 09/25/2024 9:00 AM CDT 09/25/2024 3:30 PM CDT Medicine LAB BLOOD ORDERABLES Final Resul t [facility] One [facility] Department [place] [address] * (ABNORMAL) Protime-INR (09/25/2024 5:12 AM CDT) PT 30.5(H) 9.7 - 13.0 sec [facility] Comment:Testing performed by : [facility], [address] [place]., [address] INR 2.77(H) 0.90 - 1.20 [facility] Comment: Interpretive data Oral anticoagulant therapeutic ranges: Venous thromboembolism prophylaxis or treatment: 2.0-3.0 CARDIOLOGY Standard range: 2.0-3.0 High-intensity range: 2.5-3.5 Refer to indication-specific guidelines for appropriate target ranges for prosthetic heart valve replacement. Current interpretive data was last revised on 2019. Testing performed by: [facility], [address] [place]., [address] Blood 09/25/2024 5:12 AM CDT 09/25/2024 8:15 AM CDT Carlos Hatch MD LAB BLOOD ORDERABLES Final Re sult Performing Organization Address [facility] Co de Phone Number [facility] Department [place] [address] * (ABNORMAL) Protime-INR (09/24/2024 5:58 AM CDT) PT 31.5(H) 9.7 - 13.0 sec [facility] Comment:Testing performed by : [facility], [address] [place] [address]., [address] INR 2.85(H) 0.90 - 1.20 [facility] Comment: Interpretive data Oral anticoagulant therapeutic ranges: Venous thromboembolism prophylaxis or treatment: 2.0-3.0 CARDIOLOGY Standard range: 2.0-3.0 High-intensity range: 2.5-3.5 Refer to indication-specific guidelines for appropriate target ranges for prosthetic heart valve replacement. Current interpretive data was last revised on 2019. Testing performed by: [facility], [address] [place] [address]., [address] Blood 09/24/2024 5:58 AM CDT 09/24/2024 10:07 AM CDT us Carlos Hatch MD LAB BLOOD ORDERABLES Final Re sult Performing Organization Address [facility] Co de Phone Number [facility] Department [place] [address] * (ABNORMAL) Protime-INR (09/23/2024 7:04 AM CDT) PT 34.6(H) 9.7 - 13.0 sec [facility] Comment:Testing performed by : [facility], [address] [place] [address]., [address] INR 3.13(H) 0.90 - 1.20 [facility] Comment: Interpretive data Oral anticoagulant therapeutic ranges: Venous thromboembolism prophylaxis or treatment: 2.0-3.0 CARDIOLOGY Standard range: 2.0-3.0 High-intensity range: 2.5-3.5 Refer to indication-specific guidelines for appropriate target ranges for prosthetic heart valve replacement. Current interpretive data was last revised on 2019. Testing performed by: [facility], [address] [place] [address]., [address] Blood 09/23/2024 7:04 AM CDT 09/23/2024 7:45 AM CDT us Carlos Hatch MD LAB BLOOD ORDERABLES Final Re sult [facility] One [facility] Department [place] [address] * eGFR (09/21/2024 5:00 AM CDT) eGFR >90 >=60 mL/min/1. 73 m2 [facility] Comment: Interpretive Data Reference Interval Normal [...] was last reviewed 2021. Testing performed by: [facility], [address] [place] [address]., [address] Blood 09/21/2024 5:00 AM CDT 09/21/2024 7:41 AM CDT us Carlos Hatch MD LAB BLOOD ORDERABLES Final Re sult [facility] One [facility] Department [place] [address] * (ABNORMAL) Differential, auto (09/21/2024 5:00 AM CDT) Neutrophil abs 5.41 1.50 - 6.50 K/cumm [facility] Comment:Testing performed by : [facility], [address] [place] [address]., [address] Imm gran abs 0.04 0.00 - 0.10 K/cumm [facility] Comment:Testing performed by : [facility], [address] [place] [address]., [address] Lymphocyte abs 0.67(L) 0.80 - 3.30 K/cumm [facility] Comment:Testing performed by : [facility], [address] [place] [address]., [address] Monocyte abs 0.44 0.20 - 0.80 K/cumm [facility] Comment:Testing performed by : [facility], [address] [place] [address]., [address] Eosinophil abs 0.09 0.00 - 0.50 K/cumm [facility] Comment:Testing performed by : [facility], [address] [place] [address]., [address] Basophil abs 0.05 0.00 - 0.10 K/cumm [facility] Comment:Testing performed by : [address], [address] Neutrophil pct 80.8 % [facility] Comment: Interpretive Data Percent cell count reference ranges are not reported, since discordance with absolute values may lead to misinterpretation of CBC data. Current Interpretive Data was last revised on 2017. Testing performed by: [facility], [address] [place]., [address] Imm gran pct 0.6 % [facility] Comment: Interpretive Data Percent cell count reference ranges are not reported, since discordance with absolute values may lead to misinterpretation of CBC data. Current Interpretive Data was last revised on 2017. Testing performed by: [facility], [address] [place]., [address] Lymphocyte pct 10.0 % [facility] Comment: Interpretive Data Percent cell count reference ranges are not reported, since discordance with absolute values may lead to misinterpretation of CBC data. Current Interpretive Data was last revised on 2017. Testing performed by: [facility], [address] [place]., [address] Monocyte pct 6.6 % [facility] Comment: Interpretive Data Percent cell count reference ranges are not reported, since discordance with absolute values may lead to misinterpretation of CBC data. Current Interpretive Data was last revised on 2017. Testing performed by: [facility], [address] [place]., [address] Eosinophil pct 1.3 % [facility] Comment: Interpretive Data Percent cell count reference ranges are not reported, since discordance with absolute values may lead to misinterpretation of CBC data. Current Interpretive Data was last revised on 2017. Testing performed by: [facility], [address] [place]., [address] Basophil pct 0.7 % [facility] Comment: Interpretive Data Percent cell count reference ranges are not reported, since discordance with absolute values may lead to misinterpretation of CBC data. Current Interpretive Data was last revised on 2017. Testing performed by: [facility], [address] [place]., [address] Blood 09/21/2024 5:00 AM CDT 09/21/2024 7:41 AM CDT us Carlos Hatch MD LAB BLOOD ORDERABLES Final Re sult [facility] One [facility] Department [place] [address] * (ABNORMAL) Comprehensive metabolic panel, without glucose (Outreach) (09/21/2024 5:00 AM CDT) Sodium 138 135 - 145 mmol/L [facility] Comment:Testing performed by : [facility], [address] [facility], [address] Potassium, pl 4.2 3.3 - 4.9 mmol/L [facility] Comment:Testing performed by : [facility], [address] [facility], [address] Chloride 102 97 - 110 mmol/L [facility] Comment:Testing performed by : [facility], [address] [facility], [address] CO2 27 22 - 32 mmol/L [facility] Comment:Testing performed by : [facility], [address] [facility], [address] Anion gap 9 2 - 15 mmol/L [facility] Comment:Testing performed by : [facility], [address] [facility], [address] BUN 20 6 - 25 mg/dL [facility] Comment:Testing performed by : [facility], [address] [facility], [address] Creatinine 0.69(L) 0.80 - 1.30 mg/dL [facility] Comment:Testing performed by : [facility], [address] [facility], [address] Calcium 9.4 8.5 - 10.3 mg/dL [facility] Comment:Testing performed by : [facility], [address] [facility], [address] Protein, pl 7.0 6.5 - 8.5 g/dL [facility] Comment:Testing performed by : [facility], [address] [address] Albumin 3.5 3.5 - 5.0 g/dL [facility] Comment:Testing performed by : [facility], [address] [facility], [address] Bilirubin, total 0.6 0.1 - 1.2 mg/dL [facility] Comment:Testing performed by : [facility], [address] [facility], [address] Alk phos 116 40 - 130 Units/L [facility] Comment:Testing performed by : [facility], [address] [facility], [address] AST 28 10 - 50 Units/L [facility] Comment:Testing performed by : [facility], [address] [facility], [address] ALT 25 7 - 55 Units/L [facility] Comment:Testing performed by : [facility], [address] [facility], [address] Blood 09/21/2024 5:00 AM CDT 09/21/2024 7:41 AM CDT Carlos Hatch MD LAB BLOOD ORDERABLES Final Re sult [facility] One [facility] Department [place] [address] * (ABNORMAL) CBC with auto differential (09/21/2024 5:00 AM CDT) WBC 6.70 3.80 - 9.90 K/cumm [facility] Comment:Testing performed by : [facility], [address] [place]., [address] Hgb 13.5 13.0 - 17.5 g/dL [facility] Comment:Testing performed by : [facility], [address] [facility], [address] Hct 41.7 38.9 - 50.3 % [facility] Comment:Testing performed by : [facility], [address] [facility], [address] Plt 236 150 - 400 K/cumm [facility] Comment:Testing performed by : [facility], [address] [facility], [address] MPV 10.4 9.1 - 12.3 fL [facility] Comment:Testing performed by : [facility], [address] [facility], [address] RBC 4.77 4.30 - 5.80 M/cumm [facility] Comment:Testing performed by : [facility], [address] [facility], [address] MCV 87.4 81.3 - 96.4 fL [facility] Comment:Testing performed by : [facility], [address] [facility], [address] MCH 28.3 27.1 - 33.3 pg [facility] Comment:Testing performed by : [facility], [address] [facility], [address] MCHC 32.4 32.3 - 35.7 g/dL [facility] Comment:Testing performed by : [facility], [address] [facility], [address] RDW CV 16.9(H) 11.1 - 14.9 % [facility] Comment:Testing performed by : [facility], [address] [facility], [address] RDW SD 53.5(H) 35.7 - 48.1 fL [facility] Comment:Testing performed by : [facility], [address] [facility], [address] NRBC abs 0.00 0.00 - 0.01 K/cumm [facility] Comment:Testing performed by : [facility], [address] [facility], [address] Blood 09/21/2024 5:00 AM CDT 09/21/2024 7:41 AM CDT Carlos Hatch MD LAB BLOOD ORDERABLES Final Re sult Performing Organization Address [facility] Co de Phone Number [facility] Department [place] [address] * (ABNORMAL) Protime-INR (09/21/2024 5:00 AM CDT) PT 24.8(H) 9.7 - 13.0 sec [facility] Comment:Testing performed by : [facility], [address] [place] [address]., [address] INR 2.26(H) 0.90 - 1.20 [facility] Comment: Interpretive data Oral anticoagulant therapeutic ranges: Venous thromboembolism prophylaxis or treatment: 2.0-3.0 CARDIOLOGY Standard range: 2.0-3.0 High-intensity range: 2.5-3.5 Refer to indication-specific guidelines for appropriate target ranges for prosthetic heart valve replacement. Current interpretive data was last revised on 2019. Testing performed by: [facility], [address] [place] [address]., [address] Blood 09/21/2024 5:00 AM CDT 09/21/2024 7:41 AM CDT us Carlos Hatch MD LAB BLOOD ORDERABLES Final Re sult Performing Organization Address [facility] Co de Phone Number [facility] Department [place] [address] * (ABNORMAL) POCT glucose (09/20/2024 4:25 PM CDT) Glucose, POC 272(H) 70 - 199 mg/dL Blood 09/20/2024 4:25 PM CDT 09/20/2024 4:25 PM CDT us Liam Avila MD PhD LAB POCT ORDERABLES - DEVICE Final Result Performing Organization Address [facility] Co de Phone Number [facility] Department [place] [address] * (ABNORMAL) POCT glucose (09/20/2024 11:23 AM CDT) Glucose, POC 254(H) 70 - 199 mg/dL Blood 09/20/2024 11:2 3 AM CDT 09/20/2024 11:23 AM CDT Result [facility] Liam Avila MD PhD LAB POCT ORDERABLES - DEVICE Final Result Performing Organization Address [facility] Co de Phone Number [facility] Department [place] [address] * POCT glucose (09/20/2024 8:03 AM CDT) Glucose, POC 195 70 - 199 mg/dL Blood 09/20/2024 8:03 AM CDT 09/20/2024 8:03 AM CDT Result [facility] Liam Avila MD PhD LAB POCT ORDERABLES - DEVICE Final Result Performing Organization Address [facility] Co de Phone Number [facility] Department [place] [address] * eGFR (09/20/2024 4:41 AM CDT) eGFR [...] ORDERABLES F inal Result Performing Organization Address [facility] de Phone Number [facility] [place] [address] * (ABNORMAL) Protime-INR (09/20/2024 4:41 AM CDT) PT 24.7(H) 9.7 - 13.0 sec INR 2.25(H) 0.90 - 1.20 [facility] Comment: Interpretive data Oral anticoagulant therapeutic ranges: Venous thromboembolism prophylaxis or treatment: 2.0-3.0 CARDIOLOGY Standard range: 2.0-3.0 High-intensity range: 2.5-3.5 Refer to indication-specific guidelines for appropriate target ranges for prosthetic heart valve replacement. Current interpretive data was last revised on 2019. Blood 09/20/2024 4:41 AM CDT 09/20/2024 5:27 AM CDT Liam Avila MD PhD LAB BLOOD ORDERABLES F inal Result Performing Organization Address [facility] de Phone Number [facility] [place] [address] * (ABNORMAL) Basic metabolic panel (09/20/2024 4:41 AM CDT) Sodium 138 135 - 145 mmol/L Potassium, pl 4.2 3.3 - 4.9 mmol/L [facility] Chloride 101 97 - 110 mmol/L [facility] CO2 27 22 - 32 mmol/L [facility] Anion gap 10 2 - 15 mmol/L [facility] BUN 19 6 - 25 mg/dL [facility] Creatinine 0.65(L) 0.80 - 1.30 mg/dL [facility] Glucose 184 70 - 199 mg/dL [facility] Comment: Interpretive Data Fasting glucose >/= [...] 2022. Calcium 9.5 8.5 - 10.3 mg/dL [facility] Blood 09/20/2024 4:41 AM CDT 09/20/2024 5:22 AM CDT Liam Avila MD PhD LAB BLOOD ORDERABLES F inal Result Performing Organization Address City/[facility]/ZIP Co de Phone Number [facility] Department of [place] [address] * (ABNORMAL) POCT glucose (09/19/2024 7:44 PM CDT) Pathologist [facility] [place] Glucose, POC 205(H) 70 - 199 mg/dL Blood 09/19/2024 7:44 PM CDT 09/19/2024 7:44 PM CDT Liam Avila MD PhD LAB POCT ORDERABLES - DEVICE Final Result Performing Organization Address [facility]/ZIP Co de Phone Number [facility] Department [place] [address] * (ABNORMAL) POCT glucose (09/19/2024 4:48 PM CDT) Glucose, POC 217(H) 70 - 199 mg/dL Comment:Glu2: RN/ Notified Glucose comment 1 Glu2: RN/MD Notified [facility] Blood 09/19/2024 4:48 PM CDT 09/19/2024 4:48 PM CDT us Liam Avila MD PhD LAB POCT ORDERABLES - DEVICE Final Result Performing Organization Address [facility] de Phone Number [facility] [place] [address] * (ABNORMAL) POCT glucose (09/19/2024 11:38 AM CDT) Glucose, POC 239(H) 70 - 199 mg/dL Comment:Glu2: RN/ Notified Glucose comment 1 Glu2: RN/ Notified [facility] Blood 09/19/2024 11:3 8 AM CDT 09/19/2024 11:38 AM CDT us Liam Avila MD PhD LAB POCT ORDERABLES - DEVICE Final Result Performing Organization Address [facility] de Phone Number [facility] Department [place] [address] * (ABNORMAL) POCT glucose (09/19/2024 9:08 AM CDT) Glucose, POC 233(H) 70 - 199 mg/dL Blood 09/19/2024 9:08 AM CDT 09/19/2024 9:08 AM CDT Liam Avila MD PhD LAB POCT ORDERABLES - DEVICE Final Result Performing Organization Address City/[facility] Co de Phone Number FRANCIA [facility] Department [place] [address] * eGFR (09/19/2024 3:25 AM CDT) eGFR [...] 3:25 AM CDT 09/19/2024 4:57 AM CDT Liam Avila MD PhD LAB BLOOD ORDERABLES F inal Result Performing Organization Address [facility]/State/[facility] Co de Phone Number FRANCIA [facility] Department [place] [address] * (ABNORMAL) Protime-INR (09/19/2024 3:25 AM CDT) PT 23.9(H) 9.7 - 13.0 sec INR 2.18(H) 0.90 - 1.20 [facility] Comment: Interpretive data Oral anticoagulant therapeutic [...] ORDERABLES F inal Result Performing Organization Address City/[facility]/ZIP Co de Phone Number [facility] Department [place] [address] * (ABNORMAL) CBC without differential (09/19/2024 3:25 AM CDT) WBC 5.00 3.80 - 9.90 K/cumm Hgb 11.9(L) 13.0 - 17.5 g/dL [facility] Hct 36.9(L) 38.9 - 50.3 % [facility] Plt 240 150 - 400 K/cumm [facility] MPV 10.3 9.1 - 12.3 fL [facility] RBC 4.31 4.30 - 5.80 M/cumm [facility] MCV 85.6 81.3 - 96.4 fL [facility] MCH 27.6 27.1 - 33.3 pg [facility] MCHC 32.2(L) 32.3 - 35.7 g/dL [facility] RDW CV 16.7(H) 11.1 - 14.9 % [facility] RDW SD 51.2(H) 35.7 - 48.1 fL [facility] NRBC abs 0.00 0.00 - 0.01 K/cumm [facility] Blood 09/19/2024 3:2 5 AM CDT 09/19/2024 4:26 AM CDT us Margarette Lai [employer] LAB BLOOD ORDERABLES Final Result [facility] Department [place] [address] * Magnesium (09/19/2024 3:25 AM CDT) [facility] Magnesium 1.8 1.4 - 2.5 mg/dL Blood 09/19/2024 3:25 AM CDT 09/19/2024 4:50 AM CDT Liam Avila MD PhD LAB BLOOD ORDERABLES F inal Result Performing Organization Address City/[facility] Co de Phone Number [facility] Department [place] [address] * Hepatic function panel (09/19/2024 3:25 AM CDT) [facility] Bilirubin, total 0.4 0.1 - 1.2 mg/dL Bilirubin, direct <0.2 0.1 - 0.3 mg/dL [facility] Protein, pl 6.7 6.5 - 8.5 g/dL [facility] Albumin 3.5 3.5 - 5.0 g/dL [facility] Alk phos 100 40 - 130 Units/L [facility] ALT 46 7 - 55 Units/L [facility] Comment:Reviewed AST 50 10 - 50 Units/L [facility] Blood 09/19/2024 3:25 AM CDT 09/19/2024 4:50 AM CDT Margarette Lai [employer] LAB BLOOD ORDERABLES Final Result Performing Organization Address [facility] Co de Phone Number [facility] Department [place] [address] * (ABNORMAL) Basic metabolic panel (09/19/2024 3:25 AM CDT) [facility] Sodium 137 135 - 145 mmol/L Potassium, pl 3.8 3.3 - 4.9 mmol/L [facility] Chloride 101 97 - 110 mmol/L [facility] CO2 28 22 - 32 mmol/L [facility] Anion gap 8 2 - 15 mmol/L [facility] BUN 16 6 - 25 mg/dL [facility] Creatinine 0.66(L) 0.80 - 1.30 mg/dL [facility] Glucose 195 70 - 199 mg/dL [facility] Comment: Interpretive Data Fasting glucose >/= [...] 2022. Calcium 9.3 8.5 - 10.3 mg/dL [facility] Blood 09/19/2024 3:25 AM CDT 09/19/2024 4:50 AM CDT Liam Avila MD PhD LAB BLOOD ORDERABLES F inal Result [facility] Department [place] [address] * (ABNORMAL) POCT glucose (09/18/2024 7:44 PM CDT) Glucose, POC 236(H) 70 - 199 mg/dL Blood 09/18/2024 7:44 PM CDT 09/18/2024 7:44 PM CDT us Liam Avila MD PhD LAB POCT ORDERABLES - DEVICE Final Result [facility] Department [place] [address] * POCT glucose (09/18/2024 4:42 PM CDT) Glucose, POC 162 70 - 199 mg/dL Blood 09/18/2024 4:42 PM CDT 09/18/2024 4:42 PM CDT us Liam Avila MD PhD LAB POCT ORDERABLES - DEVICE Final Result Performing Organization Address [facility] Co de Phone Number [facility] [place] [address] * (ABNORMAL) POCT glucose (09/18/2024 11:48 AM CDT) Glucose, POC 205(H) 70 - 199 mg/dL Blood 09/18/2024 11:4 8 AM CDT 09/18/2024 11:48 AM CDT us Liam Avila MD PhD LAB POCT ORDERABLES - DEVICE Final Result Performing Organization Address [facility] Co de Phone Number [facility] [place] [address] * POCT glucose (09/18/2024 7:39 AM CDT) Glucose, POC 180 70 - 199 mg/dL Blood 09/18/2024 7:39 AM CDT 09/18/2024 7:39 AM CDT us Liam Avila MD PhD LAB POCT ORDERABLES - DEVICE Final Result Performing Organization Address City/[facility] [place] [address] * POCT glucose (09/18/2024 7:33 AM CDT) Glucose, POC 173 70 - 199 mg/dL Blood 09/18/2024 7:33 AM CDT 09/18/2024 7:33 AM CDT us Liam Avila MD PhD LAB POCT ORDERABLES - DEVICE Final Result Performing Organization Address [facility] de Phone Number [facility] [place] [address] * eGFR (09/18/2024 3:27 AM CDT) eGFR [...] ORDERABLES F inal Result Performing Organization Address [facility] de Phone Number [facility] Department [place] [address] * (ABNORMAL) Protime-INR (09/18/2024 3:27 AM CDT) PT 24.6(H) 9.7 - 13.0 sec INR 2.24(H) 0.90 - 1.20 [facility] Comment: Interpretive data Oral anticoagulant therapeutic [...] ORDERABLES F inal Result Performing Organization Address City/[facility]/ZIP Co de Phone Number [facility] Department [place] [address] * (ABNORMAL) Basic metabolic panel (09/18/2024 3:27 AM CDT) Sodium 140 135 - 145 mmol/L Potassium, pl 3.9 3.3 - 4.9 mmol/L [facility] Chloride 104 97 - 110 mmol/L [facility] CO2 29 22 - 32 mmol/L [facility] Anion gap 7 2 - 15 mmol/L [facility] BUN 16 6 - 25 mg/dL [facility] Creatinine 0.66(L) 0.80 - 1.30 mg/dL [facility] Glucose 160 70 - 199 mg/dL [facility] Comment: Interpretive Data Fasting glucose >/= [...] 2022. Calcium 9.1 8.5 - 10.3 mg/dL [facility] Blood 09/18/2024 3:27 AM CDT 09/18/2024 4:35 AM CDT Liam Avila MD PhD LAB BLOOD ORDERABLES F inal Result Performing Organization Address [facility] Co de Phone Number [facility] [place] [address] * (ABNORMAL) POCT glucose (09/17/2024 7:50 PM CDT) Glucose, POC 268(H) 70 - 199 mg/dL Comment:Glu2: RN/MD Notified Glucose comment 1 Glu2: RN/MD Notified [facility] Blood 09/17/2024 7:50 PM CDT 09/17/2024 7:50 PM CDT us Liam Avila MD PhD LAB POCT ORDERABLES - DEVICE Final Result Performing Organization Address [facility] Co de Phone Number [facility] [place] [address] * (ABNORMAL) POCT glucose (09/17/2024 4:44 PM CDT) Glucose, POC 248(H) 70 - 199 mg/dL Blood 09/17/2024 4:44 PM CDT 09/17/2024 4:44 PM CDT Liam Avila MD PhD LAB POCT ORDERABLES - DEVICE Final Result Performing Organization Address [facility] Co de Phone Number [facility] Department [place] [address] * (ABNORMAL) POCT glucose (09/17/2024 11:18 AM CDT) Glucose, POC 264(H) 70 - 199 mg/dL Blood 09/17/2024 11:1 8 AM CDT 09/17/2024 11:18 AM CDT us Liam Avila MD PhD LAB POCT ORDERABLES - DEVICE Final Result Performing Organization Address [facility] Co de Phone Number [facility] Department [place] [address] * POCT glucose (09/17/2024 7:21 AM CDT) Pathologist [facility] [place] Glucose, POC 158 70 - 199 mg/dL Blood 09/17/2024 7:21 AM CDT 09/17/2024 7:21 AM CDT Liam Avila MD PhD LAB POCT ORDERABLES - DEVICE Final Result Performing Organization Address City/[facility] Co de Phone Number [facility] [place] [address] * eGFR (09/17/2024 3:54 AM CDT) [facility] eGFR >90 >=60 mL/min/1. 73 m2 Comment: [...] 3:54 AM CDT 09/17/2024 5:45 AM CDT Liam Avila MD PhD LAB BLOOD ORDERABLES F inal Result FRANCIA [facility] Department [place] [address] * (ABNORMAL) Protime-INR (09/17/2024 3:54 AM CDT) [facility] PT 22.1(H) 9.7 - 13.0 sec INR 2.02(H) 0.90 - 1.20 [facility] Comment: Interpretive data Oral anticoagulant therapeutic ranges: Venous thromboembolism prophylaxis or treatment: 2.0-3.0 CARDIOLOGY Standard range: 2.0-3.0 High-intensity range: 2.5-3.5 Refer to indication-specific guidelines for appropriate target ranges for prosthetic heart valve replacement. Current interpretive data was last revised on 2019. Blood 09/17/2024 3:54 AM CDT 09/17/2024 5:40 AM CDT Liam Avila MD PhD LAB BLOOD ORDERABLES F inal Result [facility] Department [place] [address] * (ABNORMAL) Basic metabolic panel (09/17/2024 3:54 AM CDT) [facility] Sodium 137 135 - 145 mmol/L Potassium, pl 4.3 3.3 - 4.9 mmol/L [facility] Chloride 100 97 - 110 mmol/L [facility] CO2 28 22 - 32 mmol/L [facility] Anion gap 9 2 - 15 mmol/L [facility] BUN 14 6 - 25 mg/dL [facility] Creatinine 0.63(L) 0.80 - 1.30 mg/dL [facility] Glucose 174 70 - 199 mg/dL [facility] Comment: Interpretive Data Fasting glucose >/= [...] 2022. Calcium 9.6 8.5 - 10.3 mg/dL [facility] Blood 09/17/2024 3:54 AM CDT 09/17/2024 5:45 AM CDT Liam Avila MD PhD LAB BLOOD ORDERABLES F inal Result Performing Organization Address City/[facility] Co de Phone Number [facility] [place] [address] * POCT glucose (09/16/2024 8:13 PM CDT) Glucose, POC 192 70 - 199 mg/dL Blood 09/16/2024 8:13 PM CDT 09/16/2024 8:13 PM CDT Liam Avila MD PhD LAB POCT ORDERABLES - DEVICE Final Result Performing Organization Address [facility] de Phone Number [facility] Department [place] [address] * (ABNORMAL) POCT glucose (09/16/2024 4:33 PM CDT) Glucose, POC 252(H) 70 - 199 mg/dL Comment:Glu2: RN/MD Notified Glucose comment 1 Glu2: RN/MD Notified [facility] Blood 09/16/2024 4:33 PM CDT 09/16/2024 4:33 PM CDT Liam Avila MD PhD LAB POCT ORDERABLES - DEVICE Final Result Performing Organization Address [facility] Co de Phone Number [facility] [place] [address] * (ABNORMAL) POCT glucose (09/16/2024 11:22 AM CDT) Glucose, POC 258(H) 70 - 199 mg/dL Comment:Glu2: RN/MD Notified Glucose comment 1 Glu2: RN/MD Notified [facility] Blood 09/16/2024 11:2 2 AM CDT 09/16/2024 11:22 AM CDT Liam Avila MD PhD LAB POCT ORDERABLES - DEVICE Final Result [facility] Department [place] [address] * POCT glucose (09/16/2024 7:43 AM CDT) Glucose, POC 147 70 - 199 mg/dL Blood 09/16/2024 7:43 AM CDT 09/16/2024 7:43 AM CDT Liam Avila MD PhD LAB POCT ORDERABLES - DEVICE Final Result Performing Organization Address City/[facility]/ZIP Co de Phone Number [facility] Department [place] [address] * eGFR (09/16/2024 4:34 AM CDT) eGFR [...] 4:34 AM CDT 09/16/2024 6:28 AM CDT us Liam Avila MD PhD LAB BLOOD ORDERABLES F inal Result Performing Organization Address [facility]/ZIP Co de Phone Number [facility] Department [place] [address] * (ABNORMAL) aPTT (09/16/2024 4:34 AM CDT) aPTT 87(H) 28 - 38 sec Comment: Interpretive Data Heparin therapeutic range: 66.0 - 100.0 seconds. Range based on correlation with therapeutic heparin activity range of 0.3 - 0.7 Units/mL. Current interpretive data was last revised on 2023. Blood 09/16/2024 4:34 AM CDT 09/16/2024 6:06 AM CDT [facility] 6:43 AM CDT STAT [...] peripherally (not from CVC). us Margarette Lai [employer] LAB BLOOD ORDERABLES Final Result Performing Organization Address [facility]/ZIP Co de Phone Number [facility] Department [place] [address] * (ABNORMAL) Protime-INR (09/16/2024 4:34 AM CDT) [facility] PT 19.8(H) 9.7 - 13.0 sec INR 1.81(H) 0.90 - 1.20 [facility] Comment: Interpretive data Oral anticoagulant therapeutic ranges: Venous thromboembolism prophylaxis or treatment: 2.0-3.0 CARDIOLOGY Standard range: 2.0-3.0 High-intensity range: 2.5-3.5 Refer to indication-specific guidelines for appropriate target ranges for prosthetic heart valve replacement. Current interpretive data was last revised on 2019. Blood 09/16/2024 4:34 AM CDT 09/16/2024 6:06 AM CDT Liam Avila MD PhD LAB BLOOD ORDERABLES F inal Result [facility] Department [place] [address] * (ABNORMAL) CBC without differential (09/16/2024 4:34 AM CDT) [facility] WBC 3.84 3.80 - 9.90 K/cumm Hgb 11.8(L) 13.0 - 17.5 g/dL [facility] Hct 35.8(L) 38.9 - 50.3 % [facility] Plt 252 150 - 400 K/cumm [facility] MPV 10.9 9.1 - 12.3 fL [facility] RBC 4.16(L) 4.30 - 5.80 M/cumm [facility] MCV 86.1 81.3 - 96.4 fL [facility] MCH 28.4 27.1 - 33.3 pg [facility] MCHC 33.0 32.3 - 35.7 g/dL [facility] RDW CV 16.5(H) 11.1 - 14.9 % [facility] RDW SD 51.8(H) 35.7 - 48.1 fL [facility] NRBC abs 0.00 0.00 - 0.01 K/cumm [facility] Blood 09/16/2024 4:34 AM CDT 09/16/2024 6:06 AM CDT Margarette Lai [employer] LAB BLOOD ORDERABLES Final Result Performing Organization Address City/[facility]/ZIP Co de Phone Number [facility] Department [place] [address] * Magnesium (09/16/2024 4:34 AM CDT) Pathologist [facility] [place] Magnesium 1.9 1.4 - 2.5 mg/dL Blood 09/16/2024 4:34 AM CDT 09/16/2024 6:06 AM CDT Liam Avila MD PhD LAB BLOOD ORDERABLES F inal Result Performing Organization Address [facility] Co de Phone Number [facility] Department [place] [address] * Vancomycin level trough Draw trough 30 minutes prior (09/16/2024 4:34 AM CDT) [facility] Vancomycin trough 19.5 10.0 - 20.0 mcg/mL Blood 09/16/2024 4:34 AM CDT 09/16/2024 5:42 AM CDT Narrative [facility] - 09/16/2024 6:10 AM CDT Draw trough 30 minutes prior Margarette Lai [employer] LAB BLOOD ORDERABLES Final Result Performing Organization Address [facility] Co de Phone Number [facility] [place] [address] * (ABNORMAL) Basic metabolic panel (09/16/2024 4:34 AM CDT) Pathologist [facility] [place] Sodium 137 135 - 145 mmol/L Potassium, pl 3.8 3.3 - 4.9 mmol/L [facility] Chloride 101 97 - 110 mmol/L [facility] CO2 28 22 - 32 mmol/L [facility] Anion gap 8 2 - 15 mmol/L [facility] BUN 14 6 - 25 mg/dL [facility] Creatinine 0.71(L) 0.80 - 1.30 mg/dL [facility] Glucose 149 70 - 199 mg/dL [facility] Comment: Interpretive Data Fasting glucose >/= [...] 2022. Calcium 9.2 8.5 - 10.3 mg/dL [facility] Blood 09/16/2024 4:34 AM CDT 09/16/2024 6:06 AM CDT Liam Avila MD PhD LAB BLOOD ORDERABLES F inal Result [facility] Department [place] [address] * (ABNORMAL) aPTT (09/15/2024 10:29 PM CDT) Pathologist [facility] [place] aPTT 90(H) 28 - 38 sec Comment: Interpretive Data Heparin therapeutic range: 66.0 - 100.0 seconds. Range based on correlation with therapeutic heparin activity range of 0.3 - 0.7 Units/mL. Current interpretive data was last revised on 2023. Blood 09/15/2024 10:2 9 PM CDT 09/16/2024 3:09 AM CDT Narrative [facility] - 09/16/2024 3:10 AM CDT STAT PTT [...] drawn peripherally (not from CVC). Margarette Lai [employer] LAB BLOOD ORDERABLES Final Result Performing Organization Address City/[facility] Co de Phone Number [facility] Department [place] [address] * POCT glucose (09/15/2024 8:13 PM CDT) Glucose, POC 176 70 - 199 mg/dL Blood 09/15/2024 8:13 PM CDT 09/15/2024 8:13 PM CDT Result [facility] Liam Avila MD PhD LAB POCT ORDERABLES - DEVICE Final Result Performing Organization Address [facility] Co de Phone Number [facility] [place] [address] * POCT glucose (09/15/2024 4:35 PM CDT) Glucose, POC 145 70 - 199 mg/dL Blood 09/15/2024 4:35 PM CDT 09/15/2024 4:35 PM CDT Liam Avila MD PhD LAB POCT ORDERABLES - DEVICE Final Result Performing Organization Address [facility] Co de Phone Number [facility] Department [place] [address] * (ABNORMAL) aPTT (09/15/2024 2:52 PM CDT) aPTT 61(H) 28 - 38 sec Comment: Interpretive Data Heparin therapeutic range: 66.0 - 100.0 seconds. Range based on correlation with therapeutic heparin activity range of 0.3 - 0.7 Units/mL. Current interpretive data was last revised on 2023. Blood 09/15/2024 2:52 PM CDT 09/15/2024 3:26 PM CDT Narrative [facility] - 09/15/2024 3:50 PM CDT STAT PTT [...] peripherally (not from CVC). us Margarette Lai [employer] LAB BLOOD ORDERABLES Final Result [facility] Department [place] [address] * POCT glucose (09/15/2024 11:12 AM CDT) Glucose, POC 191 70 - 199 mg/dL Blood 09/15/2024 11:1 2 AM CDT 09/15/2024 11:12 AM CDT us Liam Avila MD PhD LAB POCT ORDERABLES - DEVICE Final Result [facility] Department [place] [address] * POCT glucose (09/15/2024 7:27 AM CDT) Glucose, POC 137 70 - 199 mg/dL Blood 09/15/2024 7:27 AM CDT 09/15/2024 7:27 AM CDT Liam Avila MD PhD LAB POCT ORDERABLES - DEVICE Final Result Performing Organization Address City/[facility]/ZIP Co [place] [address] * eGFR (09/15/2024 4:04 AM CDT) eGFR [...] 4:04 AM CDT 09/15/2024 4:58 AM CDT us Liam Avila MD PhD LAB BLOOD ORDERABLES F inal Result [facility] Department [place] [address] * (ABNORMAL) aPTT (09/15/2024 4:04 AM CDT) [...] BLOOD ORDERABLES Final Result Performing Organization Address [facility] [place] [address] * (ABNORMAL) Protime-INR (09/15/2024 4:04 AM CDT) PT 18.4(H) 9.7 - 13.0 sec INR 1.69(H) 0.90 - 1.20 [facility] Comment: Interpretive data Oral anticoagulant therapeutic [...] ORDERABLES F inal Result Performing Organization Address [facility] [place] [address] * (ABNORMAL) Hepatic function panel (09/15/2024 4:04 AM CDT) Bilirubin, total 0.3 0.1 - 1.2 mg/dL Bilirubin, direct <0.2 0.1 - 0.3 mg/dL [facility] Protein, pl 6.5 6.5 - 8.5 g/dL [facility] Albumin 3.3(L) 3.5 - 5.0 g/dL [facility] Alk phos 102 40 - 130 Units/L [facility] ALT 12 7 - 55 Units/L [facility] AST 28 10 - 50 Units/L [facility] Blood 09/15/2024 4:04 AM CDT 09/15/2024 4:58 AM CDT us Margarette Lai [employer] LAB BLOOD ORDERABLES Final Result [facility] Department [place] [address] * (ABNORMAL) Basic metabolic panel (09/15/2024 4:04 AM CDT) [facility] Sodium 140 135 - 145 mmol/L Potassium, pl 3.6 3.3 - 4.9 mmol/L [facility] Chloride 103 97 - 110 mmol/L [facility] CO2 27 22 - 32 mmol/L [facility] Anion gap 10 2 - 15 mmol/L [facility] BUN 14 6 - 25 mg/dL [facility] Creatinine 0.66(L) 0.80 - 1.30 mg/dL [facility] Glucose 109 70 - 199 mg/dL [facility] Comment: Interpretive Data Fasting glucose >/= [...] 2022. Calcium 9.1 8.5 - 10.3 mg/dL [facility] Blood 09/15/2024 4:04 AM CDT 09/15/2024 4:58 AM CDT us Liam Avila MD PhD LAB BLOOD ORDERABLES F inal Result Performing Organization Address [facility] Co de Phone Number [facility] [place] [address] * POCT glucose (09/14/2024 7:53 PM CDT) Glucose, POC 198 70 - 199 mg/dL Blood 09/14/2024 7:53 PM CDT 09/14/2024 7:53 PM CDT Liam Avila MD PhD LAB POCT ORDERABLES - DEVICE Final Result Performing Organization Address [facility] de Phone Number [facility] [place] [address] * POCT glucose (09/14/2024 4:42 PM CDT) Glucose, POC 132 70 - 199 mg/dL Blood 09/14/2024 4:42 PM CDT 09/14/2024 4:42 PM CDT Result [facility] Liam Avila MD PhD LAB POCT ORDERABLES - DEVICE Final Result Performing Organization Address [facility] de Phone Number [facility] [place] [address] * CT Chest Abdomen Pelvis W Contrast [...] collection. Electronically signed by: Juancarlos Gonzalez M.D. Result [facility] Angelina Vo SCALLOP CUTTER MACHINE IMG CT PROCEDURES Final Res ult * POCT glucose (09/14/2024 11:51 AM CDT) Glucose, POC 151 70 - 199 mg/dL Blood 09/14/2024 11:5 1 AM CDT 09/14/2024 11:51 AM CDT Result [facility] Liam Avila MD PhD LAB POCT ORDERABLES - DEVICE Final Result Performing Organization Address [facility] Co de Phone Number [facility] Department [place] [address] * POCT glucose (09/14/2024 7:52 AM CDT) Glucose, POC 114 70 - 199 mg/dL Blood 09/14/2024 7:52 AM CDT 09/14/2024 7:52 AM CDT Result [facility] Liam Avila MD PhD LAB POCT ORDERABLES - DEVICE Final Result Performing Organization Address [facility] Co de Phone Number [facility] Department [place] [address] * eGFR (09/14/2024 5:00 AM CDT) eGFR [...] PhD LAB BLOOD ORDERABLES F inal Result [facility] Department [place] [address] * (ABNORMAL) aPTT (09/14/2024 5:00 AM CDT) aPTT 98(H) 28 - 38 sec Comment: Interpretive Data Heparin therapeutic range: 66.0 - 100.0 seconds. Range based on correlation with therapeutic heparin activity range of 0.3 - 0.7 Units/mL. Current interpretive data was last revised on 2023. Blood 09/14/2024 5:00 AM CDT 09/14/2024 5:48 AM CDT us Ariela Goldman MD LAB BLOOD ORDERABLES Final Result Performing Organization Address [facility] Co de Phone Number [facility] [place] [address] * (ABNORMAL) Protime-INR (09/14/2024 5:00 AM CDT) Pathologist [facility] [place] PT 16.6(H) 9.7 - 13.0 sec INR 1.52(H) 0.90 - 1.20 [facility] Comment: Interpretive data Oral anticoagulant therapeutic [...] ORDERABLES F inal Result Performing Organization Address [facility] Co de Phone Number [facility] [place] [address] * (ABNORMAL) CBC without differential (09/14/2024 5:00 AM CDT) Pathologist [facility] [place] WBC 4.56 3.80 - 9.90 K/cumm Hgb 12.1(L) 13.0 - 17.5 g/dL [facility] Hct 36.5(L) 38.9 - 50.3 % [facility] Plt 224 150 - 400 K/cumm [facility] MPV 10.3 9.1 - 12.3 fL [facility] RBC 4.31 4.30 - 5.80 M/cumm [facility] MCV 84.7 81.3 - 96.4 fL [facility] MCH 28.1 27.1 - 33.3 pg [facility] MCHC 33.2 32.3 - 35.7 g/dL [facility] RDW CV 16.7(H) 11.1 - 14.9 % [facility] RDW SD 51.4(H) 35.7 - 48.1 fL [facility] NRBC abs 0.00 0.00 - 0.01 K/cumm [facility] Blood 09/14/2024 5:00 AM CDT 09/14/2024 6:06 AM CDT Margarette Lai [employer]ACHINE LAB BLOOD ORDERABLES Final Result Performing Organization Address City/[facility] Co de Phone Number [facility] [place] [address] * Magnesium (09/14/2024 5:00 AM CDT) Magnesium 1.9 1.4 - 2.5 mg/dL Blood 09/14/2024 5:00 AM CDT 09/14/2024 5:49 AM CDT Liam Avila MD PhD LAB BLOOD ORDERABLES F inal Result Performing Organization Address [facility] de Phone Number [facility] Department [place] [address] * Vancomycin level trough (09/14/2024 5:00 AM CDT) Vancomycin trough 10.7 10.0 - 20.0 mcg/mL Blood 09/14/2024 5:00 AM CDT 09/14/2024 5:48 AM CDT Margarette Lai [employer]ACHINE LAB BLOOD ORDERABLES Final Result Performing Organization Address [facility] de Phone Number [facility] [place] [address] * (ABNORMAL) Basic metabolic panel (09/14/2024 5:00 AM CDT) Sodium 137 135 - 145 mmol/L Potassium, pl 4.1 3.3 - 4.9 mmol/L [facility] Chloride 103 97 - 110 mmol/L [facility] CO2 25 22 - 32 mmol/L [facility] Anion gap 9 2 - 15 mmol/L [facility] BUN 13 6 - 25 mg/dL [facility] Creatinine 0.71(L) 0.80 - 1.30 mg/dL [facility] Glucose 111 70 - 199 mg/dL [facility] Comment: Interpretive Data Fasting glucose >/= [...] 2022. Calcium 9.0 8.5 - 10.3 mg/dL [facility] Blood 09/14/2024 5:00 AM CDT 09/14/2024 5:49 AM CDT Liam Avila MD PhD LAB BLOOD ORDERABLES F inal Result [facility] Department [place] [address] * (ABNORMAL) aPTT (09/13/2024 11:21 PM CDT) Pathologist [facility] [place] aPTT 76(H) 28 - 38 sec Comment: Interpretive Data Heparin therapeutic range: 66.0 - 100.0 seconds. Range based on correlation with therapeutic heparin activity range of 0.3 - 0.7 Units/mL. Current interpretive data was last revised on 2023. Blood 09/13/2024 11:2 1 PM CDT 09/14/2024 12:06 AM CDT Narrative [facility] - 09/14/2024 12:15 AM CDT STAT PTT [...] drawn peripherally (not from CVC). Margarette Lai [employer]ACHINE LAB BLOOD ORDERABLES Final Result Performing Organization Address City/[facility] Co de Phone Number [facility] Department [place] [address] * POCT glucose (09/13/2024 7:35 PM CDT) Glucose, POC 147 70 - 199 mg/dL Blood 09/13/2024 7:35 PM CDT 09/13/2024 7:35 PM CDT Result [facility] Liam Avila MD PhD LAB POCT ORDERABLES - DEVICE Final Result Performing Organization Address [facility] Co de Phone Number [facility] Department [place] [address] * POCT glucose (09/13/2024 5:00 PM CDT) Glucose, POC 133 70 - 199 mg/dL Blood 09/13/2024 5:00 PM CDT 09/13/2024 5:00 PM CDT Liam Avila MD PhD LAB POCT ORDERABLES - DEVICE Final Result Performing Organization Address [facility] Co de Phone Number [facility] Department [place] [address] * (ABNORMAL) aPTT (09/13/2024 4:11 PM CDT) Pathologist [facility] [place] aPTT 50(H) 28 - 38 sec Comment: Interpretive Data Heparin therapeutic range: 66.0 - 100.0 seconds. Range based on correlation with therapeutic heparin activity range of 0.3 - 0.7 Units/mL. Current interpretive data was last revised on 2023. Blood 09/13/2024 4:11 PM CDT 09/13/2024 4:33 PM CDT Narrative [facility] - 09/13/2024 4:43 PM CDT STAT PTT [...] peripherally (not from CVC). us Margarette Lai [employer]ACHINE LAB BLOOD ORDERABLES Final Result [facility] Department [place] [address] * POCT glucose (09/13/2024 11:28 AM CDT) [facility] Glucose, POC 157 70 - 199 mg/dL Blood 09/13/2024 11:2 8 AM CDT 09/13/2024 11:28 AM CDT us Liam Avila MD PhD LAB POCT ORDERABLES - DEVICE Final Result [facility] Department [place] [address] * POCT glucose (09/13/2024 8:14 AM CDT) Glucose, POC 94 70 - 199 mg/dL Blood 09/13/2024 8:14 AM CDT 09/13/2024 8:14 AM CDT Liam Avila MD PhD LAB POCT ORDERABLES - DEVICE Final Result Performing Organization Address [facility]/[place] [address] * eGFR (09/13/2024 4:02 AM CDT) [facility] eGFR >90 >=60 mL/min/1. 73 m2 Comment: [...] 4:02 AM CDT 09/13/2024 4:49 AM CDT us Liam Avila MD PhD LAB BLOOD ORDERABLES F inal Result Performing Organization Address City/[facility]/ZIP Co de Phone Number [facility] Department [place] [address] * Protime-INR (09/13/2024 4:02 AM CDT) [facility] PT 12.9 9.7 - 13.0 sec INR 1.19 0.90 - 1.20 [facility] Comment: Interpretive data Oral anticoagulant therapeutic ranges: Venous thromboembolism prophylaxis or treatment: 2.0-3.0 CARDIOLOGY Standard range: 2.0-3.0 High-intensity range: 2.5-3.5 Refer to indication-specific guidelines for appropriate target ranges for prosthetic heart valve replacement. Current interpretive data was last revised on 2019. Blood 09/13/2024 4:02 AM CDT 09/13/2024 4:51 AM CDT Liam Avila MD PhD LAB BLOOD ORDERABLES F inal Result [facility] Department [place] [address] * (ABNORMAL) CBC without differential (09/13/2024 4:02 AM CDT) [facility] WBC 3.60(L) 3.80 - 9.90 K/cumm Hgb 11.7(L) 13.0 - 17.5 g/dL [facility] Hct 36.0(L) 38.9 - 50.3 % [facility] Plt 210 150 - 400 K/cumm [facility] MPV 10.3 9.1 - 12.3 fL [facility] RBC 4.23(L) 4.30 - 5.80 M/cumm [facility] MCV 85.1 81.3 - 96.4 fL [facility] MCH 27.7 27.1 - 33.3 pg [facility] MCHC 32.5 32.3 - 35.7 g/dL [facility] RDW CV 16.8(H) 11.1 - 14.9 % [facility] RDW SD 52.0(H) 35.7 - 48.1 fL [facility] NRBC abs 0.00 0.00 - 0.01 K/cumm [facility] Blood 09/13/2024 4:02 AM CDT 09/13/2024 4:49 AM CDT Liam Avila MD PhD LAB BLOOD ORDERABLES F inal Result Performing Organization Address City/[facility]/ZIP Co de Phone Number [facility] Department [place] [address] * Magnesium (09/13/2024 4:02 AM CDT) [facility] Magnesium 2.0 1.4 - 2.5 mg/dL Blood 09/13/2024 4:02 AM CDT 09/13/2024 4:49 AM CDT Liam Avila MD PhD LAB BLOOD ORDERABLES F inal Result Performing Organization Address City/[facility] de Phone Number [facility] Department [place] [address] * (ABNORMAL) Basic metabolic panel (09/13/2024 4:02 AM CDT) [facility] Sodium 141 135 - 145 mmol/L Potassium, pl 3.8 3.3 - 4.9 mmol/L [facility] Chloride 105 97 - 110 mmol/L [facility] CO2 25 22 - 32 mmol/L [facility] Anion gap 11 2 - 15 mmol/L [facility] BUN 10 6 - 25 mg/dL [facility] Creatinine 0.61(L) 0.80 - 1.30 mg/dL [facility] Glucose 96 70 - 199 mg/dL [facility] Comment: Interpretive Data Fasting glucose >/= [...] 2022. Calcium 8.6 8.5 - 10.3 mg/dL [facility] Blood 09/13/2024 4:02 AM CDT 09/13/2024 4:49 AM CDT Liam Avila MD PhD LAB BLOOD ORDERABLES F inal Result [facility] Department [place] [address] * (ABNORMAL) Urinalysis reflex to microscopic and culture Urine (09/12/2024 9:42 PM CDT) Color, ur Straw Yellow Clarity, ur Clear Clear [facility] Specific gravity, ur 1.020 1.003 - 1.030 [facility] pH, urine 8.0 [facility] Comment: Interpretive Data U rine pH is affected by diet, medications, systemic acid-base disturbances, and renal tubular function. pH may affect urinary stone formation. For example, urine pH below 6.0 may help reduce the tendency for calcium phosphate stones and pH greater than 6.0 may reduce the tendency for uric acid stone formation. Source: [facility] Current Interpretive Data was last revised on 2017 Protein, ur ql 1+(A) Negative [facility] Glucose, ur ql 4+(A) Negative [facility] Ketones, ur Trace Negative [facility] Bilirubin, ur Negative Negative [facility] Blood, ur Negative Negative [facility] Urobilinogen, ur <2.0 <2.0 mg/dL [facility] Nitrite, ur Negative Negative [facility] Leukocyte esterase, ur Negative Negative [facility] UA reflex comment Reflex to microscopic UA will be performed. [facility] Urine 09/12/2024 9:42 PM CDT 09/12/2024 10:23 PM CDT Liam Avila MD PhD LAB MICROBIOLOGY - GEN ERAL ORDERABLES Final Result [facility] Department [place] [address] * (ABNORMAL) Aerobic and anaerobic culture and gram stain Driveline site Abdominal opening (09/12/2024 9:42 PM CDT) Direct Specimen Exam Stain: Rare polymorphonuclear leukocytes seen. No organisms seen. Report Final Report: Few Staphylococcus aureus Methicillin resistant (MRSA) by penicillin binding protein 2a (PBP2a) testing. Few Escherichia coli (.) [facility] Organism ESCHERICHIA COLI [facility] Organism STAPHYLOCOCCUS AUREUS [facility] Driveline site (Abdominal opening) 09/12/2024 9:42 PM CDT 09/12/2024 11:07 PM CDT Narrative [facility] - 09/19/2024 1:28 PM CDT Specimen received on an ESwab. Testing performed by [facility] ([phone]) Specimens submitted from normally sterile body sites will have all bacterial morphotypes identified. Specimens that contain grossly mixed annamarai and/or are from body sites that are [...] MICROBIOLOGY - GEN ERAL ORDERABLES Final Result Performing Organization Address City/[facility] Co de Phone Number [facility] [place] [address] * Urinalysis, microscopic only (09/12/2024 9:42 PM CDT) [facility] WBC, ur 0-5 0 - 5 /HPF RBC, ur 0-2 0 - 2 /HPF [facility] Culture Reflex Comment Reflex conditions for urine culture (WBC >10) not met. [facility] Urine 09/12/2024 9:42 PM CDT 09/12/2024 10:23 PM CDT Liam Avila MD PhD LAB URINE ORDERABLES F inal Result Performing Organization Address [facility] [place] [address] * POCT glucose (09/12/2024 8:52 PM CDT) Pathologist [facility] [place] Glucose, POC 118 70 - 199 mg/dL Blood 09/12/2024 8:52 PM CDT 09/12/2024 8:52 PM CDT Liam Avila MD PhD LAB POCT ORDERABLES - DEVICE Final Result Performing Organization Address City/[facility] Co de Phone Number [facility] [place] [address] * ECG 12 lead (09/12/2024 8:18 PM CDT) Ventricular Rate EKG/Min 82 BPM [facility] QRS-Interval (MSEC) 126 ms [facility] QT-Interval (MSEC) 400 ms [facility] QTc 467 ms [facility] R [place] 16 degrees [facility] T [place] 82 degrees [facility] Diagnosis Atrial fibrillation Non-specific intra-ventricul ar conduction block Nonspecific T wave abnormality Abnormal ECG Confirmed by Chinedu JARRELL, [id number] on 09/14/2024 12:45:52 PM [facility] 09/12/2024 8:18 PM CDT 09/14/2024 12:45 PM CDT us Margarette Lai [employer] MACHINE ECG ORDERABLES Final Resu lt [facility] * Sepsis Lactate w/ Reflex (09/12/2024 7:46 PM CDT) Pathologist [facility] [place] Sepsis Lactate 1.2 0.7 - 2.0 mmol/L Blood 09/12/2024 7:46 PM CDT 09/12/2024 7:51 PM CDT us Viky Gomez MD LAB BLOOD ORDERABLES Final Result Performing Organization Address City/[facility]/ZIP Co de Phone Number [facility] Department [place] [address] * CT Head WO Contrast (09/12/2024 5:44 [...] it. Electronically signed by: Bhupinder Ibrahim MD Viky Gomez MD IMG CT PROCEDURES Final Re sult * aPTT (09/12/2024 4:50 PM CDT) aPTT 34 28 - 38 sec Comment: Interpretive Data Heparin therapeutic range: 66.0 - 100.0 seconds. Range based on correlation with therapeutic heparin activity range of 0.3 - 0.7 Units/mL. Current interpretive data was last revised on 2023. Blood 09/12/2024 4:50 PM CDT 09/12/2024 5:04 PM CDT Viky Gomez MD LAB BLOOD ORDERABLES Final Result [facility] Department [place] [address] * Protime-INR (09/12/2024 4:50 PM CDT) PT 12.4 9.7 - 13.0 sec INR 1.14 0.90 - 1.20 [facility] Comment: Interpretive data Oral anticoagulant therapeutic ranges: Venous thromboembolism prophylaxis or treatment: 2.0-3.0 CARDIOLOGY Standard range: 2.0-3.0 High-intensity range: 2.5-3.5 Refer to indication-specific guidelines for appropriate target ranges for prosthetic heart valve replacement. Current interpretive data was last revised on 2019. Blood 09/12/2024 4:50 PM CDT 09/12/2024 5:04 PM CDT Result [facility] Viky Gomez MD LAB BLOOD ORDERABLES Final Result Performing Organization Address [facility] Co de Phone Number [facility] Department [place] [address] * POCT glucose (09/12/2024 4:47 PM CDT) [facility] Glucose, POC 158 70 - 199 mg/dL Blood 09/12/2024 4:47 PM CDT 09/12/2024 4:47 PM CDT us Notinfile Unknown LAB POCT ORDERABLES - DEVICE F inal Result Performing Organization Address [facility] Co de Phone Number [facility] Department [place] [address] * (ABNORMAL) Sepsis Lactate w/ Reflex (09/12/2024 4:26 PM CDT) [facility] Sepsis Lactate 2.8(H) 0.7 - 2.0 mmol/L Blood 09/12/2024 4:26 PM CDT 09/12/2024 4:38 PM CDT us Viky Gomez MD LAB BLOOD ORDERABLES Final Result Performing Organization Address [facility] Co de Phone Number [facility] Department [place] [address] * eGFR (09/12/2024 4:26 PM CDT) Pathologist [facility] [place] eGFR 90 >=60 mL/min/1. 73 m2 Comment: [...] Gomez MD LAB BLOOD ORDERABLES Final Result [facility] Department [place] [address] * Differential, auto (09/12/2024 4:26 PM CDT) Neutrophil abs 3.73 1.50 - 6.50 K/cumm Imm gran abs 0.03 0.00 - 0.10 K/cumm [facility] Lymphocyte abs 0.88 0.80 - 3.30 K/cumm [facility] Monocyte abs 0.25 0.20 - 0.80 K/cumm [facility] Eosinophil abs 0.07 0.00 - 0.50 K/cumm [facility] Basophil abs 0.02 0.00 - 0.10 K/cumm [facility] Neutrophil pct 74.9 % [facility] Comment: Interpretive Data Percent cell count reference ranges are not reported, since discordance with absolute values may lead to misinterpretation of CBC data. Current Interpretive Data was last revised on 2017. Imm gran pct 0.6 % [facility] Comment: Interpretive Data Percent cell count reference ranges are not reported, since discordance with absolute values may lead to misinterpretation of CBC data. Current Interpretive Data was last revised on 2017. Lymphocyte pct 17.7 % [facility] Comment: Interpretive Data Percent cell count reference ranges are not reported, since discordance with absolute values may lead to misinterpretation of CBC data. Current Interpretive Data was last revised on 2017. Monocyte pct 5.0 % [facility] Comment: Interpretive Data Percent cell count reference ranges are not reported, since discordance with absolute values may lead to misinterpretation of CBC data. Current Interpretive Data was last revised on 2017. Eosinophil pct 1.4 % [facility] Comment: Interpretive Data Percent cell count reference ranges are not reported, since discordance with absolute values may lead to misinterpretation of CBC data. Current Interpretive Data was last revised on 2017. Basophil pct 0.4 % [facility] Comment: Interpretive Data Percent cell count reference ranges are not reported, since discordance with absolute values may lead to misinterpretation of CBC data. Current Interpretive Data was last revised on 2017. Blood 09/12/2024 4:26 PM CDT 09/12/2024 5:31 PM CDT us Viky Gomez MD LAB BLOOD ORDERABLES Final Result [facility] Department [place] [address] * (ABNORMAL) CBC with auto differential (09/12/2024 4:26 PM CDT) WBC 4.98 3.80 - 9.90 K/cumm Hgb 13.5 13.0 - 17.5 g/dL [facility] Hct 42.0 38.9 - 50.3 % [facility] Plt 212 150 - 400 K/cumm [facility] MPV 10.1 9.1 - 12.3 fL [facility] RBC 4.77 4.30 - 5.80 M/cumm [facility] MCV 88.1 81.3 - 96.4 fL [facility] MCH 28.3 27.1 - 33.3 pg [facility] MCHC 32.1(L) 32.3 - 35.7 g/dL [facility] RDW CV 16.9(H) 11.1 - 14.9 % [facility] RDW SD 54.1(H) 35.7 - 48.1 fL [facility] NRBC abs 0.00 0.00 - 0.01 K/cumm [facility] Blood 09/12/2024 4:26 PM CDT 09/12/2024 5:31 PM CDT Viky Gomez MD LAB BLOOD ORDERABLES Final Result [facility] Department [place] [address] * Blood culture Blood Peripheral (09/12/2024 4:26 PM CDT) Report Final Report: No growth Blood (Peripheral) 09/12/2024 4:26 PM CDT 09/12/2024 4:42 PM CDT Narrative [facility] - 09/17/2024 7:01 AM CDT From [...] performance characteristics have been verified by the [facility]. For questions about this culture, contact the Microbiology Laboratory at [phone]. Interpretive data was last revised on 24. us Viky Gomez MD LAB MICROBIOLOGY - GENERAL ORDERABLES Final Result [facility] Department [place] [address] * Blood culture Blood Peripheral (09/12/2024 4:26 PM CDT) Report Final Report: No growth Blood (Peripheral) 09/12/2024 4:26 PM CDT 09/12/2024 4:42 PM CDT [facility] - 09/17/2024 7:01 AM CDT Draw Blood [...] performance characteristics have been verified by the [facility]. For questions about this culture, contact the Microbiology Laboratory at [phone]. Interpretive data was last revised on 24. Viky Gomez MD LAB MICROBIOLOGY - GENERAL ORDERABLES Final Result [facility] Department [place] [address] * (ABNORMAL) Comprehensive metabolic panel (09/12/2024 4:26 PM CDT) Sodium 140 135 - 145 mmol/L Potassium, pl 4.7 3.3 - 4.9 mmol/L [facility] Comment:Hemolyzed; Potassium value may be falsely elevated by as much as 0.3-0.5 mmol/L. Suggest redraw and reanalysis. Chloride 103 97 - 110 mmol/L [facility] CO2 27 22 - 32 mmol/L [facility] Anion gap 10 2 - 15 mmol/L [facility] BUN 12 6 - 25 mg/dL [facility] Creatinine 0.77(L) 0.80 - 1.30 mg/dL [facility] Glucose 130 70 - 199 mg/dL [facility] Comment: Interpretive Data Fasting glucose >/= [...] 2022. Calcium 9.4 8.5 - 10.3 mg/dL [facility] Bilirubin, total 0.5 0.1 - 1.2 mg/dL [facility] Protein, pl 7.6 6.5 - 8.5 g/dL [facility] Albumin 3.7 3.5 - 5.0 g/dL [facility] Alk phos 131(H) 40 - 130 Units/L [facility] ALT 17 7 - 55 Units/L [facility] AST 46 10 - 50 Units/L [facility] Comment:Hemolyzed; result ma y be falsely elevated Blood 09/12/2024 4:26 PM CDT 09/12/2024 5:11 PM CDT us Viky Gomez MD LAB BLOOD ORDERABLES Final Result [facility] Department [place] [address] * XR Chest Pa Lateral 2 Vw [...] hyperostosis. Electronically signed by: Desire Titus M.D. us Viky Gomez MD IMG XR PROCEDURES Final Re sult * (ABNORMAL) Protime-INR (09/07/2024) INR 1.20(A) 0.90 - 1.10 EXTERNAL LAB Blood Historical Provider LAB BLOOD ORDERABLES Paulette l Result EXTERNAL LAB * (ABNORMAL) Protime-INR (09/02/2024) INR 2.37(A) 0.90 - 1.10 EXTERNAL LAB Blood Susy Black MD LAB BLOOD ORDERABLES Paulette l Result Performing Organization Address [facility] de Phone Number EXTERNAL LAB * (ABNORMAL) Protime-INR (09/02/2024) SCRIBED PT 27.0(A) 10.8 - 14.5 sec EXTERNAL LAB SCRIBED INR 2.37 2.00 - 3.00 sec EXTERNAL LAB Blood 09/02/2024 Thompson Napoles MD LAB BLOOD ORDERABLES Fin al Result Performing Organization Address [facility] de Phone Number EXTERNAL LAB * CBC with auto differential (09/01/2024 8:00 AM CDT) Pathologist [facility] [place] SCRIBED WBC 7.4 3.8 - 10.8 k/cumm EXTERNAL LAB SCRIBED Hemoglobin 13.5 13.5 - 16.5 g/dL EXTERNAL LAB SCRIBED Hematocrit 43.1 41 - 50 % EXTERNAL LAB SCRIBED Platelets 221 130 - 400 k/cumm EXTERNAL LAB Blood 09/01/2024 8:00 AM CDT Thompson Napoles MD LAB BLOOD ORDERABLES Fin al Result Performing Organization Address [facility] de Phone Number EXTERNAL LAB * (ABNORMAL) Comprehensive metabolic panel [...] >60 EXTERNAL LAB SCRIBED eGFR in NonAfrican [place] 103 >60 EXTERNAL LAB BUN/Creat Ratio 24.68 10 - 26 EXTERNAL LAB Globulin 2.7 1.5 - 4.0 g/dL (calc) EXTERNAL LAB ALB/GLOB RATIO CALC 1.3 >1.0 EXTERNAL LAB Blood 09/01/2024 8:00 AM CDT us Thompson Napoles MD LAB BLOOD ORDERABLES Fin al Result Performing Organization Address City/[facility]/ZIP Co de Phone Number EXTERNAL LAB * (ABNORMAL) Lactate dehydrogenase (LD) (09/01/2024) SCRIBED LDH 336(A) 120 - 250 IUnit/mL EXTERNAL LAB Blood 09/01/2024 us Thompson Napoles MD LAB BLOOD ORDERABLES Fin al Result EXTERNAL LAB * CS GLUCOSE (08/29/2024 5:54 AM CDT) Glucose 133 70 - 199 mg/dL [facility] Comment: Interpretive Data Fasting glucose >/= 126 [...] was last revised 2022. Testing performed by: [facility], [address] [place] [address]., [address] Blood 08/29/2024 5:54 AM CDT 08/29/2024 7:15 AM CDT Leyda Aguilar NP LAB BLOOD ORDERABLES Final Result [facility] Department [place] [address] * eGFR (08/29/2024 5:54 AM CDT) eGFR >90 >=60 mL/min/1. 73 m2 [facility] Comment: Interpretive Data Reference Interval Normal >/= [...] was last reviewed 2021. Testing performed by: [facility], [address] [place] [address]., [address] Blood 08/29/2024 5:54 AM CDT 08/29/2024 7:32 AM CDT Leyda Aguilar [employer] LAB BLOOD ORDERABLES Final Result [facility] Department [place] [address] * (ABNORMAL) Differential, auto (08/29/2024 5:54 AM CDT) Neutrophil abs 5.75 1.50 - 6.50 K/cumm [facility] Comment:Testing performed by : [facility], [address] [place] [address]., [address] Imm gran abs 0.03 0.00 - 0.10 K/cumm [facility] Comment:Testing performed by : [facility], [address] [place] [address]., [address] Lymphocyte abs 0.56(L) 0.80 - 3.30 K/cumm [facility] Comment:Testing performed by : [facility], [address] [place] [address]., [address] Monocyte abs 0.50 0.20 - 0.80 K/cumm [facility] Comment:Testing performed by : [facility], [address] [place] [address]., [address] Eosinophil abs 0.22 0.00 - 0.50 K/cumm [facility] Comment:Testing performed by : [facility], [address] [place] [address]., [address] Basophil abs 0.05 0.00 - 0.10 K/cumm [facility] Comment:Testing performed by : [address], [address] Neutrophil pct 80.9 % [facility] Comment: Interpretive Data Percent cell count reference ranges are not reported, since discordance with absolute values may lead to misinterpretation of CBC data. Current Interpretive Data was last revised on 2017. Testing performed by: [facility], [address] [place]., [address] Imm gran pct 0.4 % [facility] Comment: Interpretive Data Percent cell count reference ranges are not reported, since discordance with absolute values may lead to misinterpretation of CBC data. Current Interpretive Data was last revised on 2017. Testing performed by: [facility], [address] [place]., [address] Lymphocyte pct 7.9 % [facility] Comment: Interpretive Data Percent cell count reference ranges are not reported, since discordance with absolute values may lead to misinterpretation of CBC data. Current Interpretive Data was last revised on 2017. Testing performed by: [facility], [address] [place]., [address] Monocyte pct 7.0 % [facility] Comment: Interpretive Data Percent cell count reference ranges are not reported, since discordance with absolute values may lead to misinterpretation of CBC data. Current Interpretive Data was last revised on 2017. Testing performed by: [facility], [address] [place]., [address] Eosinophil pct 3.1 % [facility] Comment: Interpretive Data Percent cell count reference ranges are not reported, since discordance with absolute values may lead to misinterpretation of CBC data. Current Interpretive Data was last revised on 2017. Testing performed by: [facility], [address] [place]., [address] Basophil pct 0.7 % [facility] Comment: Interpretive Data Percent cell count reference ranges are not reported, since discordance with absolute values may lead to misinterpretation of CBC data. Current Interpretive Data was last revised on 2017. Testing performed by: [facility], [address] [place]., [address] Blood 08/29/2024 5:54 AM CDT 08/29/2024 7:15 AM CDT us Leyda Itzel Aguilar LAB BLOOD ORDERABLES Final Result [facility] Department [place] [address] * (ABNORMAL) Comprehensive metabolic panel, without glucose (Outreach) (08/29/2024 5:54 AM CDT) Sodium 138 135 - 145 mmol/L [facility] Comment:Testing performed by : [facility], [address] [facility], [address] Potassium, pl 3.7 3.3 - 4.9 mmol/L [facility] Comment:Testing performed by : [facility], [address] [facility], [address] Chloride 101 97 - 110 mmol/L [facility] Comment:Testing performed by : [facility], [address] [place] [address], [address] CO2 28 22 - 32 mmol/L [facility] Comment:Testing performed by : [facility], [address] [facility], [address] Anion gap 9 2 - 15 mmol/L [facility] Comment:Testing performed by : [facility], [address] [facility], [address] BUN 17 6 - 25 mg/dL [facility] Comment:Testing performed by : [facility], [address] [place] [address], [address] Creatinine 0.71(L) 0.80 - 1.30 mg/dL [facility] Comment:Testing performed by : [facility], [address] [place] [address], [address] Calcium 9.4 8.5 - 10.3 mg/dL [facility] Comment:Testing performed by : [facility], [address] [place] [address], [address] Protein, pl 6.5 6.5 - 8.5 g/dL [facility] Comment:Testing performed by : [facility] [address] [facility], [address] Albumin 3.5 3.5 - 5.0 g/dL [facility] Comment:Testing performed by : [facility], [address] [facility], [address] Bilirubin, total 0.4 0.1 - 1.2 mg/dL [facility] Comment:Testing performed by : [facility], [address] [facility], [address] Alk phos 100 40 - 130 Units/L [facility] Comment:Testing performed by : [facility], [address] [facility], [address] AST 27 10 - 50 Units/L [facility] Comment:Testing performed by : [facility], [address] [facility], [address] ALT 16 7 - 55 Units/L [facility] Comment:Testing performed by : [facility], [address] [facility], [address] Blood 08/29/2024 5:54 AM CDT 08/29/2024 7:15 AM CDT Leyda Aguilar NP LAB BLOOD ORDERABLES Final Result [facility] Department [place] [address] * (ABNORMAL) CBC with auto differential (08/29/2024 5:54 AM CDT) WBC 7.11 3.80 - 9.90 K/cumm [facility] Comment:Testing performed by : [facility], [address] [place]., [address] Hgb 12.3(L) 13.0 - 17.5 g/dL [facility] Comment:Testing performed by : [facility], [address] [facility], [address] Hct 37.4(L) 38.9 - 50.3 % [facility] Comment:Testing performed by : [facility], [address] [facility], [address] Plt 185 150 - 400 K/cumm [facility] Comment:Testing performed by : [facility], [address] [facility], [address] MPV 10.6 9.1 - 12.3 fL [facility] Comment:Testing performed by : [facility], [address] [facility], [address] RBC 4.35 4.30 - 5.80 M/cumm [facility] Comment:Testing performed by : [facility], [address] [facility], [address] MCV 86.0 81.3 - 96.4 fL [facility] Comment:Testing performed by : [facility], [address] [facility], [address] MCH 28.3 27.1 - 33.3 pg [facility] Comment:Testing performed by : [facility], [address] [facility], [address] MCHC 32.9 32.3 - 35.7 g/dL [facility] Comment:Testing performed by : [facility], [address] [facility], [address] RDW CV 16.4(H) 11.1 - 14.9 % [facility] Comment:Testing performed by : [facility], [address] [facility], [address] RDW SD 50.7(H) 35.7 - 48.1 fL [facility] Comment:Testing performed by : [facility], [address] [facility], [address] NRBC abs 0.00 0.00 - 0.01 K/cumm [facility] Comment:Testing performed by : [facility], [address] [facility], [address] Blood 08/29/2024 5:54 AM CDT 08/29/2024 7:15 AM CDT [facility] LAB BLOOD ORDERABLES Final Result Performing Organization Address City/[facility] Co de Phone Number [facility] Department [place] [address] * (ABNORMAL) Protime-INR (08/29/2024 5:54 AM CDT) PT 23.3(H) 9.7 - 13.0 sec [facility] Comment:Testing performed by : [facility], [address] [place] [address]., [address] INR 2.12(H) 0.90 - 1.20 [facility] Comment: Interpretive data Oral anticoagulant therapeutic ranges: Venous thromboembolism prophylaxis or treatment: 2.0-3.0 CARDIOLOGY Standard range: 2.0-3.0 High-intensity range: 2.5-3.5 Refer to indication-specific guidelines for appropriate target ranges for prosthetic heart valve replacement. Current interpretive data was last revised on 2019. Testing performed by: [facility], [address] [place] [address]., [address] Blood 08/29/2024 5:54 AM CDT 08/29/2024 7:15 AM CDT [facility] LAB BLOOD ORDERABLES Final Result Performing Organization Address [facility] de Phone Number [facility] One [facility] [place] [address] * Phosphorus (08/29/2024 5:54 AM CDT) Phosphorus, pl 2.6 2.3 - 4.5 mg/dL [facility] Comment:Testing performed by : [facility], [address] [place] [address]., [address] Blood 08/29/2024 5:54 AM CDT 08/29/2024 7:15 AM CDT [facility] LAB BLOOD ORDERABLES Final Result Performing Organization Address [facility] de Phone Number [facility] Department [place] [address] * Magnesium (08/29/2024 5:54 AM CDT) Magnesium 1.9 1.4 - 2.5 mg/dL [facility] Comment:Testing performed by : [address] [address] Blood 08/29/2024 5:54 AM CDT 08/29/2024 7:15 AM CDT [facility] LAB BLOOD ORDERABLES Final Result Performing Organization Address [facility] de Phone Number [facility] Department [place] [address] * (ABNORMAL) Protime-INR (08/28/2024 4:44 AM CDT) PT 20.0(H) 9.7 - 13.0 sec [facility] Comment:Testing performed by : [facility], [address] [place] [address]., [address] INR 1.83(H) 0.90 - 1.20 [facility] Comment: Interpretive data Oral anticoagulant therapeutic ranges: Venous thromboembolism prophylaxis or treatment: 2.0-3.0 CARDIOLOGY Standard range: 2.0-3.0 High-intensity range: 2.5-3.5 Refer to indication-specific guidelines for appropriate target ranges for prosthetic heart valve replacement. Current interpretive data was last revised on 2019. Testing performed by: [facility], [address] [place] [address]., [address] Blood 08/28/2024 4:44 AM CDT 08/28/2024 9:55 AM CDT us Notinfile Unknown LAB BLOOD ORDERABLES Final Res ult Performing Organization Address [facility] Co de Phone Number [facility] One [facility] [place] [address] * (ABNORMAL) Protime-INR (08/27/2024 4:30 AM CDT) PT 18.5(H) 9.7 - 13.0 sec [facility] Comment:Testing performed by : [facility], [address] [place] [address]., [address] INR 1.69(H) 0.90 - 1.20 [facility] Comment: Interpretive data Oral anticoagulant therapeutic ranges: Venous thromboembolism prophylaxis or treatment: 2.0-3.0 CARDIOLOGY Standard range: 2.0-3.0 High-intensity range: 2.5-3.5 Refer to indication-specific guidelines for appropriate target ranges for prosthetic heart valve replacement. Current interpretive data was last revised on 2019. Testing performed by: [facility], [address] [place] [address]., [address] Blood 08/27/2024 4:30 AM CDT 08/27/2024 8:05 AM CDT us Notinfile Unknown LAB BLOOD ORDERABLES Final Res ult Performing Organization Address [facility] Co de Phone Number [facility] One [facility] [place] [address] * (ABNORMAL) Protime-INR (08/26/2024 6:30 AM CDT) PT 16.9(H) 9.7 - 13.0 sec [facility] Comment:Testing performed by : [facility], [address] [place] [address]., [address] INR 1.55(H) 0.90 - 1.20 [facility] Comment: Interpretive data Oral anticoagulant therapeutic ranges: Venous thromboembolism prophylaxis or treatment: 2.0-3.0 CARDIOLOGY Standard range: 2.0-3.0 High-intensity range: 2.5-3.5 Refer to indication-specific guidelines for appropriate target ranges for prosthetic heart valve replacement. Current interpretive data was last revised on 2019. Testing performed by: [facility], [address] [place] [address], [address] Blood 08/26/2024 6:30 AM CDT 08/26/2024 7:22 AM CDT us Notinfile Unknown LAB BLOOD ORDERABLES Final Res ult [facility] Department [place] [address] * Differential, auto (08/25/2024 6:32 AM CDT) Neutrophil abs 5.56 1.50 - 6.50 K/cumm [facility] Comment:Testing performed by : [facility], [address] [place] [address]., [address] Imm gran abs 0.04 0.00 - 0.10 K/cumm [facility] Comment:Testing performed by : [address] [address] Lymphocyte abs 0.81 0.80 - 3.30 K/cumm [facility] Comment:Testing performed by : [facility], [address] [place] [address]., [address] Monocyte abs 0.53 0.20 - 0.80 K/cumm [facility] Comment:Testing performed by : [facility], [address] [place] [address]., [address] Eosinophil abs 0.27 0.00 - 0.50 K/cumm [facility] Comment:Testing performed by : [facility], [address] [place]., [address] Basophil abs 0.09 0.00 - 0.10 K/cumm [facility] Comment:Testing performed by : [facility], [address] [place]., [address] Neutrophil pct 76.2 % [facility] Comment: Interpretive Data Percent cell count reference ranges are not reported, since discordance with absolute values may lead to misinterpretation of CBC data. Current Interpretive Data was last revised on 2017. Testing performed by: [facility], [address] [place]., [address] Imm gran pct 0.5 % [facility] Comment: Interpretive Data Percent cell count reference ranges are not reported, since discordance with absolute values may lead to misinterpretation of CBC data. Current Interpretive Data was last revised on 2017. Testing performed by: [facility], [address] [place]., [address] Lymphocyte pct 11.1 % [facility] Comment: Interpretive Data Percent cell count reference ranges are not reported, since discordance with absolute values may lead to misinterpretation of CBC data. Current Interpretive Data was last revised on 2017. Testing performed by: [facility], [address] [place]., [address] Monocyte pct 7.3 % [facility] Comment: Interpretive Data Percent cell count reference ranges are not reported, since discordance with absolute values may lead to misinterpretation of CBC data. Current Interpretive Data was last revised on 2017. Testing performed by: [facility], [address] [place]., [address] Eosinophil pct 3.7 % [facility] Comment: Interpretive Data Percent cell count reference ranges are not reported, since discordance with absolute values may lead to misinterpretation of CBC data. Current Interpretive Data was last revised on 2017. Testing performed by: [facility], [address] [place]., [address] Basophil pct 1.2 % [facility] Comment: Interpretive Data Percent cell count reference ranges are not reported, since discordance with absolute values may lead to misinterpretation of CBC data. Current Interpretive Data was last revised on 2017. Testing performed by: [facility], [address] [place]., [address] Blood 08/25/2024 6:32 AM CDT 08/25/2024 7:57 AM CDT Leyda Aguilar [employer] LAB BLOOD ORDERABLES Final Result [facility] Department [place] [address] * (ABNORMAL) CBC with auto differential (08/25/2024 6:32 AM CDT) WBC 7.30 3.80 - 9.90 K/cumm [facility] Comment:Testing performed by : [facility], [address] [place] [address]., [address] Hgb 12.6(L) 13.0 - 17.5 g/dL [facility] Comment:Testing performed by : [facility], [address] [place] [address]., [address] Hct 38.6(L) 38.9 - 50.3 % [facility] Comment:Testing performed by : [facility], [address] [place] [address]., [address] Plt 210 150 - 400 K/cumm [facility] Comment:Testing performed by : [facility], [address] [place] [address]., [address] MPV 11.2 9.1 - 12.3 fL [facility] Comment:Testing performed by : [facility], [address] [place] [address]., [address] RBC 4.54 4.30 - 5.80 M/cumm [facility] Comment:Testing performed by : [facility], [address] [place] [address], [place]., [address] MCV 85.0 81.3 - 96.4 fL [facility] Comment:Testing performed by : [facility], [address] [facility], [address] MCH 27.8 27.1 - 33.3 pg [facility] Comment:Testing performed by : [facility], [address] [facility], [address] MCHC 32.6 32.3 - 35.7 g/dL [facility] Comment:Testing performed by : [facility], [address] [facility], [address] RDW CV 16.3(H) 11.1 - 14.9 % [facility] Comment:Testing performed by : [facility], [address] [facility], [address] RDW SD 50.4(H) 35.7 - 48.1 fL [facility] Comment:Testing performed by : [facility], [address] [facility], [address] NRBC abs 0.00 0.00 - 0.01 K/cumm [facility] Comment:Testing performed by : [facility], [address] [facility], [address] Blood 08/25/2024 6:32 AM CDT 08/25/2024 7:57 AM CDT Leyda Fosterpton [employer] LAB BLOOD ORDERABLES Final Result [facility] Department [place] [address] * (ABNORMAL) Protime-INR (08/25/2024 6:32 AM CDT) PT 21.7(H) 9.7 - 13.0 sec [facility] Comment:Testing performed by : [facility], [address] [facility], [address] INR 1.98(H) 0.90 - 1.20 [facility] Comment: Interpretive data Oral anticoagulant therapeutic ranges: Venous thromboembolism prophylaxis or treatment: 2.0-3.0 CARDIOLOGY Standard range: 2.0-3.0 High-intensity range: 2.5-3.5 Refer to indication-specific guidelines for appropriate target ranges for prosthetic heart valve replacement. Current interpretive data was last revised on 2019. Testing performed by: [facility], [address] [place] [address]., [address] Blood 08/25/2024 6:32 AM CDT 08/25/2024 7:57 AM CDT [facility] LAB BLOOD ORDERABLES Final Result Performing Organization Address City/[facility] Co de Phone Number [facility] Department [place] [address] * Phosphorus (08/25/2024 6:32 AM CDT) Phosphorus, pl 3.1 2.3 - 4.5 mg/dL [facility] Comment:Testing performed by : [facility], [address] [place] [address]., [address] Blood 08/25/2024 6:32 AM CDT 08/25/2024 7:57 AM CDT [facility] LAB BLOOD ORDERABLES Final Result Performing Organization Address City/State/[facility] Co de Phone Number [facility] Department [place] [address] * Magnesium (08/25/2024 6:32 AM CDT) Magnesium 1.9 1.4 - 2.5 mg/dL [facility] Comment:Testing performed by : [address] [address] Blood 08/25/2024 6:32 AM CDT 08/25/2024 7:57 AM CDT Leydaqing Aguilar [employer] LAB BLOOD ORDERABLES Final Result Performing Organization Address [facility] de Phone Number [facility] Department [place] [address] * eGFR (08/25/2024 6:31 AM CDT) Pathologist [facility] [place] eGFR 87 >=60 mL/min/1. 73 m2 [facility] [facility] Comment: Interpretive Data Reference Interval Normal [...] was last reviewed 2021. Testing performed by: [facility], [address] [place] [address], [place]., [address] Blood 08/25/2024 6:31 AM CDT 08/25/2024 8:04 AM CDT us Physician No LAB BLOOD ORDERABLES Final Resul t Performing Organization Address [facility] Co de Phone Number [facility] [place] [address] * (ABNORMAL) Comprehensive metabolic panel (08/25/2024 6:31 AM CDT) [facility] Sodium 139 135 - 145 mmol/L [facility] Comment:Testing performed by : [facility], [address] [place]., [address] Potassium, pl 3.7 3.3 - 4.9 mmol/L [facility] Comment:Testing performed by : [facility], [address] [facility], [address] Chloride 101 97 - 110 mmol/L [facility] Comment:Testing performed by : [facility], [address] [facility], [address] CO2 28 22 - 32 mmol/L [facility] Comment:Testing performed by : [facility], [address] [facility], [address] Anion gap 10 2 - 15 mmol/L [facility] Comment:Testing performed by : [facility], [address] [facility], [address] BUN 20 6 - 25 mg/dL [facility] Comment:Testing performed by : [facility], [address] [facility], [address] Creatinine 0.87 0.80 - 1.30 mg/dL [facility] Comment:Testing performed by : [facility], [address] [facility], [address] Glucose 188 70 - 199 mg/dL [facility] Comment: Interpretive Data Fasting glucose >/= [...] was last revised 2022. Testing performed by: [facility], [address] [facility], [address] Calcium 9.5 8.5 - 10.3 mg/dL [facility] Comment:Testing performed by : [facility], [address] [place]., [address] Bilirubin, total 0.5 0.1 - 1.2 mg/dL [facility] Comment:Testing performed by : [facility], [address] [place]., [address] Protein, pl 6.7 6.5 - 8.5 g/dL [facility] Comment:Testing performed by : [facility], [address] [place]., [address] Albumin 3.4(L) 3.5 - 5.0 g/dL [facility] Comment:Testing performed by : [facility], [address] [place]., [address] Alk phos 96 40 - 130 Units/L [facility] Comment:Testing performed by : [facility], [address] [facility], [address] ALT 13 7 - 55 Units/L [facility] Comment:Testing performed by : [facility], [address] [place] [address], [address] AST 21 10 - 50 Units/L [facility] Comment:Testing performed by : [facility], [address] [place] [address], [address] Blood 08/25/2024 6:31 AM CDT 08/25/2024 7:58 AM CDT us Physician No LAB BLOOD ORDERABLES Final Resul t [facility] Department [place] [address] * (ABNORMAL) Protime-INR (08/24/2024 6:11 AM CDT) PT 36.9(H) 9.7 - 13.0 sec [facility] Comment:Testing performed by : [facility], [address] [place]., [address] INR 3.33(H) 0.90 - 1.20 [facility] Comment: Interpretive data Oral anticoagulant therapeutic ranges: Venous thromboembolism prophylaxis or treatment: 2.0-3.0 CARDIOLOGY Standard range: 2.0-3.0 High-intensity range: 2.5-3.5 Refer to indication-specific guidelines for appropriate target ranges for prosthetic heart valve replacement. Current interpretive data was last revised on 2019. Testing performed by: [facility], [address] [place] [address]., [address] Blood 08/24/2024 6:11 AM CDT 08/24/2024 7:28 AM CDT Medicine LAB BLOOD ORDERABLES Final Resul t [facility] Department [place] [address] * (ABNORMAL) Protime-INR (08/23/2024 5:10 AM CDT) PT 54.3(H) 9.7 - 13.0 sec [facility] Comment:Testing performed by : [facility], [address] [place] [address]., [address] INR 4.87(H) 0.90 - 1.20 [facility] Comment: Interpretive data Oral anticoagulant therapeutic ranges: Venous thromboembolism prophylaxis or treatment: 2.0-3.0 CARDIOLOGY Standard range: 2.0-3.0 High-intensity range: 2.5-3.5 Refer to indication-specific guidelines for appropriate target ranges for prosthetic heart valve replacement. Current interpretive data was last revised on 2019. Testing performed by: [facility], [address] [place] [address]., [address] Blood 08/23/2024 5:10 AM CDT 08/23/2024 7:17 AM CDT us Notinfile Unknown LAB BLOOD ORDERABLES Final Res ult Performing Organization Address [facility]/ZIP Co de Phone Number [facility] Department [place] [address] * (ABNORMAL) Protime-INR (08/22/2024 5:55 PM CDT) PT 54.7(H) 9.7 - 13.0 sec [facility] Comment:Testing performed by : [facility], [address] [place] [address]., [address] INR 4.90(H) 0.90 - 1.20 [facility] Comment: Interpretive data Oral anticoagulant therapeutic ranges: Venous thromboembolism prophylaxis or treatment: 2.0-3.0 CARDIOLOGY Standard range: 2.0-3.0 High-intensity range: 2.5-3.5 Refer to indication-specific guidelines for appropriate target ranges for prosthetic heart valve replacement. Current interpretive data was last revised on 2019. Testing performed by: [facility], [address] [place] [address], [place]., [address] Blood 08/22/2024 5:55 PM CDT 08/22/2024 7:49 PM CDT us Notinfile Unknown LAB BLOOD ORDERABLES Final Res ult Performing Organization Address [facility] Co de Phone Number [facility] Department [place] [address] * CS GLUCOSE (08/22/2024 5:41 AM CDT) Glucose 163 70 - 199 mg/dL [facility] Comment: [...] was last revised 2022. Testing performed by: [facility], [address] [place]., [address] Blood 08/22/2024 5:41 AM CDT 08/22/2024 7:51 AM CDT [facility] LAB BLOOD ORDERABLES Final Result [facility] Department [place] [address] * eGFR (08/22/2024 5:41 AM CDT) eGFR 90 >=60 mL/min/1. 73 m2 [facility] Comment: Interpretive Data Reference Interval Normal >/= [...] was last reviewed 2021. Testing performed by: [facility], [address] [place]., [address] Blood 08/22/2024 5:41 AM CDT 08/22/2024 7:55 AM CDT [facility] LAB BLOOD ORDERABLES Final Result [facility] Department [place] [address] * (ABNORMAL) Differential, auto (08/22/2024 5:41 AM CDT) Neutrophil abs 5.51 1.50 - 6.50 K/cumm [facility] Comment:Testing performed by : [facility], [address] [place] [address]., [address] Imm gran abs 0.02 0.00 - 0.10 K/cumm [facility] Comment:Testing performed by : [facility], [address] [place] [address]., [address] Lymphocyte abs 0.66(L) 0.80 - 3.30 K/cumm [facility] Comment:Testing performed by : [facility], [address] [place] [address]., [address] Monocyte abs 0.51 0.20 - 0.80 K/cumm [facility] Comment:Testing performed by : [facility], [address] [place] [address]., [address] Eosinophil abs 0.11 0.00 - 0.50 K/cumm [facility] Comment:Testing performed by : [facility], [address] [place] [address]., [address] Basophil abs 0.05 0.00 - 0.10 K/cumm [facility] Comment:Testing performed by : [facility], [address] [place] [address], [address] Neutrophil pct 80.4 % [facility] Comment: Interpretive Data Percent cell count reference ranges are not reported, since discordance with absolute values may lead to misinterpretation of CBC data. Current Interpretive Data was last revised on 2017. Testing performed by: [facility], [address] [place]., [address] Imm gran pct 0.3 % [facility] Comment: Interpretive Data Percent cell count reference ranges are not reported, since discordance with absolute values may lead to misinterpretation of CBC data. Current Interpretive Data was last revised on 2017. Testing performed by: [facility], [address] [place]., [address] Lymphocyte pct 9.6 % [facility] Comment: Interpretive Data Percent cell count reference ranges are not reported, since discordance with absolute values may lead to misinterpretation of CBC data. Current Interpretive Data was last revised on 2017. Testing performed by: [facility], [address] [place]., [address] Monocyte pct 7.4 % [facility] Comment: Interpretive Data Percent cell count reference ranges are not reported, since discordance with absolute values may lead to misinterpretation of CBC data. Current Interpretive Data was last revised on 2017. Testing performed by: [facility], [address] [place] [address]., [address] Eosinophil pct 1.6 % [facility] Comment: Interpretive Data Percent cell count reference ranges are not reported, since discordance with absolute values may lead to misinterpretation of CBC data. Current Interpretive Data was last revised on 2017. Testing performed by: [facility], [address] [place]., [address] Basophil pct 0.7 % [facility] Comment: Interpretive Data Percent cell count reference ranges are not reported, since discordance with absolute values may lead to misinterpretation of CBC data. Current Interpretive Data was last revised on 2017. Testing performed by: [facility], [address] [place]., [address] Blood 08/22/2024 5:41 AM CDT 08/22/2024 7:51 AM CDT us Leyda Aguilar NP LAB BLOOD ORDERABLES Final Result [facility] Department [place] [address] * (ABNORMAL) Comprehensive metabolic panel, without glucose (Outreach) (08/22/2024 5:41 AM CDT) Sodium 140 135 - 145 mmol/L [facility] Comment:Testing performed by : [facility], [address] [facility], [address] Potassium, pl 4.2 3.3 - 4.9 mmol/L [facility] Comment:Testing performed by : [facility], [address] [facility], [address] Chloride 105 97 - 110 mmol/L [facility] Comment:Testing performed by : [facility], [address] [facility], [address] CO2 27 22 - 32 mmol/L [facility] Comment:Testing performed by : [facility], [address] [facility], [address] Anion gap 8 2 - 15 mmol/L [facility] Comment:Testing performed by : [facility], [address] [facility], [address] BUN 21 6 - 25 mg/dL [facility] Comment:Testing performed by : [facility], [address] [facility], [address] Creatinine 0.78(L) 0.80 - 1.30 mg/dL [facility] Comment:Testing performed by : [facility], [address] [facility], [address] Calcium 9.1 8.5 - 10.3 mg/dL [facility] Comment:Testing performed by : [facility], [address] [facility], [address] Protein, pl 6.6 6.5 - 8.5 g/dL [facility] Comment:Testing performed by : [facility], [address] [facility], [address] Albumin 3.1(L) 3.5 - 5.0 g/dL [facility] Comment:Testing performed by : [facility], [address] [facility], [address] Bilirubin, total 0.4 0.1 - 1.2 mg/dL [facility] Comment:Testing performed by : [facility], [address] [facility], [address] Alk phos 98 40 - 130 Units/L [facility] Comment:Testing performed by : [facility], [address] [facility], [address] AST 22 10 - 50 Units/L [facility] Comment:Testing performed by : [facility], [address] [facility], [address] ALT 14 7 - 55 Units/L [facility] Comment:Testing performed by : [facility], [address] [facility], [address] Blood 08/22/2024 5:41 AM CDT 08/22/2024 7:51 AM CDT Leyda Aguilar [employer] LAB BLOOD ORDERABLES Final Result [facility] Department [place] [address] * (ABNORMAL) CBC with auto differential (08/22/2024 5:41 AM CDT) WBC 6.86 3.80 - 9.90 K/cumm [facility] Comment:Testing performed by : [facility], [address] [place]., [address] Hgb 12.6(L) 13.0 - 17.5 g/dL [facility] Comment:Testing performed by : [facility], [address] [facility], [address] Hct 39.3 38.9 - 50.3 % [facility] Comment:Testing performed by : [facility], [address] [facility], [address] Plt 193 150 - 400 K/cumm [facility] Comment:Testing performed by : [facility], [address] [facility], [address] MPV 11.2 9.1 - 12.3 fL [facility] Comment:Testing performed by : [facility], [address] [facility], [address] RBC 4.59 4.30 - 5.80 M/cumm [facility] Comment:Testing performed by : [facility], [address] [facility], [address] MCV 85.6 81.3 - 96.4 fL [facility] Comment:Testing performed by : [facility], [address] [facility], [address] MCH 27.5 27.1 - 33.3 pg [facility] Comment:Testing performed by : [facility], [address] [facility], [address] MCHC 32.1(L) 32.3 - 35.7 g/dL [facility] Comment:Testing performed by : [facility], [address] [facility], [address] RDW CV 16.4(H) 11.1 - 14.9 % [facility] Comment:Testing performed by : [facility], [address] [facility], [address] RDW SD 50.8(H) 35.7 - 48.1 fL [facility] Comment:Testing performed by : [facility], [address] [facility], [address] NRBC abs 0.00 0.00 - 0.01 K/cumm [facility] Comment:Testing performed by : [facility], [address] [facility], [address] Blood 08/22/2024 5:41 AM CDT 08/22/2024 7:51 AM CDT us Leyda Itzel Aguilar [employer] LAB BLOOD ORDERABLES Final Result Performing Organization Address [facility] Co de Phone Number [facility] [place] [address] * (ABNORMAL) Protime-INR (08/22/2024 5:41 AM CDT) PT 53.8(H) 9.7 - 13.0 sec [facility] Comment:Testing performed by : [facility], [address] [place] [address], [place]., [address] INR 4.82(H) 0.90 - 1.20 [facility] Comment: Interpretive data Oral anticoagulant therapeutic ranges: Venous thromboembolism prophylaxis or treatment: 2.0-3.0 CARDIOLOGY Standard range: 2.0-3.0 High-intensity range: 2.5-3.5 Refer to indication-specific guidelines for appropriate target ranges for prosthetic heart valve replacement. Current interpretive data was last revised on 2019. Testing performed by: [facility], [address] [place] [address]., [address] Blood 08/22/2024 5:41 AM CDT 08/22/2024 7:51 AM CDT Leydajannet Aguilar [employer] LAB BLOOD ORDERABLES Final Result Performing Organization Address [facility] Co de Phone Number [facility] Department [place] [address] * Phosphorus (08/22/2024 5:41 AM CDT) Phosphorus, pl 2.3 2.3 - 4.5 mg/dL [facility] Comment:Testing performed by : [address] [address] Blood 08/22/2024 5:41 AM CDT 08/22/2024 7:51 AM CDT Leyda Itzel Fosterpton [employer] LAB BLOOD ORDERABLES Final Result Performing Organization Address City/[facility]/ZIP Co de Phone Number [facility] [place] [address] * Magnesium (08/22/2024 5:41 AM CDT) Magnesium 2.1 1.4 - 2.5 mg/dL [facility] Comment:Testing performed by : [facility], [address] [place] [address]., [address] Blood 08/22/2024 5:41 AM CDT 08/22/2024 7:51 AM CDT Leyda Itzel Aguilar [employer] LAB BLOOD ORDERABLES Final Result Performing Organization Address [facility] Co de Phone Number [facility] [place] [address] * (ABNORMAL) CS GLUCOSE (08/18/2024 12:34 PM CDT) Glucose 306(H) 70 - 199 mg/dL [facility] Comment: Interpretive Data Fasting glucose >/= [...] was last revised 2022. Testing performed by: [facility], [address] [place] [address]., [address] Blood 08/18/2024 12:3 4 PM CDT 08/18/2024 4:38 PM CDT us Leyda Itzel Aguilar [employer] LAB BLOOD ORDERABLES Final Result [facility] Department [place] [address] * eGFR (08/18/2024 12:34 PM CDT) eGFR 88 >=60 mL/min/1. 73 m2 [facility] Comment: Interpretive Data Reference Interval Normal >/= [...] was last reviewed 2021. Testing performed by: [facility], [address] [place] [address]., [address] Blood 08/18/2024 12:3 4 PM CDT 08/18/2024 5:02 PM CDT [facility] LAB BLOOD ORDERABLES Final Result Performing Organization Address City/[facility]/ZIP Co de Phone Number [facility] Department [place] [address] * (ABNORMAL) Differential, auto (08/18/2024 12:34 PM CDT) Neutrophil abs 7.43(H) 1.50 - 6.50 K/cumm [facility] Comment:Testing performed by : [address], [place]., [address] Imm gran abs 0.06 0.00 - 0.10 K/cumm [facility] Comment:Testing performed by : [facility], [address] [place]., [address] Lymphocyte abs 0.51(L) 0.80 - 3.30 K/cumm [facility] Comment:Testing performed by : [facility], [address] [place]., [address] Monocyte abs 0.52 0.20 - 0.80 K/cumm [facility] Comment:Testing performed by : [facility], [address] [place]., [address] Eosinophil abs 0.05 0.00 - 0.50 K/cumm [facility] Comment:Testing performed by : [facility], [address] [place] [address]., [address] Basophil abs 0.07 0.00 - 0.10 K/cumm [facility] Comment:Testing performed by : [facility], [address] [place] [address] Neutrophil pct 86.0 % [facility] Comment: Interpretive Data Percent cell count reference ranges are not reported, since discordance with absolute values may lead to misinterpretation of CBC data. Current Interpretive Data was last revised on 2017. Testing performed by: [facility], [address] [place] [address] Imm gran pct 0.7 % [facility] Comment: Interpretive Data Percent cell count reference ranges are not reported, since discordance with absolute values may lead to misinterpretation of CBC data. Current Interpretive Data was last revised on 2017. Testing performed by: [facility], [address] [place] [address] Lymphocyte pct 5.9 % [facility] Comment: Interpretive Data Percent cell count reference ranges are not reported, since discordance with absolute values may lead to misinterpretation of CBC data. Current Interpretive Data was last revised on 2017. Testing performed by: [facility], [address] [place] [address] Monocyte pct 6.0 % [facility] Comment: Interpretive Data Percent cell count reference ranges are not reported, since discordance with absolute values may lead to misinterpretation of CBC data. Current Interpretive Data was last revised on 2017. Testing performed by: [facility], [address] [place] [address] Eosinophil pct 0.6 % [facility] Comment: Interpretive Data Percent cell count reference ranges are not reported, since discordance with absolute values may lead to misinterpretation of CBC data. Current Interpretive Data was last revised on 2017. Testing performed by: [facility], [address] [place] [address] Basophil pct 0.8 % [facility] Comment: Interpretive Data Percent cell count reference ranges are not reported, since discordance with absolute values may lead to misinterpretation of CBC data. Current Interpretive Data was last revised on 2017. Testing performed by: [facility], [address] [place] [address]., [address] Blood 08/18/2024 12:3 4 PM CDT 08/18/2024 4:38 PM CDT Leyda Aguilar NP LAB BLOOD ORDERABLES Final Result [facility] Department [place] [address] * (ABNORMAL) Comprehensive metabolic panel, without glucose (Outreach) (08/18/2024 12:34 PM CDT) Sodium 133(L) 135 - 145 mmol/L [facility] Comment:Testing performed by : [facility], [address] [place]., [address] Potassium, pl 3.9 3.3 - 4.9 mmol/L [facility] Comment:Testing performed by : [facility], [address] [facility], [address] Chloride 96(L) 97 - 110 mmol/L [facility] Comment:Testing performed by : [facility], [address] [facility], [address] CO2 24 22 - 32 mmol/L [facility] Comment:Testing performed by : [facility], [address] [facility], [address] Anion gap 13 2 - 15 mmol/L [facility] Comment:Testing performed by : [facility], [address] [facility], [address] BUN 22 6 - 25 mg/dL [facility] Comment:Testing performed by : [facility], [address] [facility], [address] Creatinine 0.83 0.80 - 1.30 mg/dL [facility] Comment:Testing performed by : [facility], [address] [facility], [address] Calcium 9.3 8.5 - 10.3 mg/dL [facility] Comment:Testing performed by : [facility], [address] [facility], [address] Protein, pl 7.8 6.5 - 8.5 g/dL [facility] Comment:Testing performed by : [facility], [address] [place] [address], [address] Albumin 3.9 3.5 - 5.0 g/dL [facility] Comment:Testing performed by : [facility], [address] [place] [address], [address] Bilirubin, total 0.6 0.1 - 1.2 mg/dL [facility] Comment:Testing performed by : [facility], [address] [facility], [address] Alk phos 118 40 - 130 Units/L [facility] Comment:Testing performed by : [facility], [address] [facility], [address] AST 34 10 - 50 Units/L [facility] Comment:Testing performed by : [facility], 1 [facility], [address] ALT 20 7 - 55 Units/L [facility] Comment:Testing performed by : [facility], [address] [facility], [address] Blood 08/18/2024 12:3 4 PM CDT 08/18/2024 4:38 PM CDT Leyda Aguilar [employer] LAB BLOOD ORDERABLES Final Result [facility] Department [place] [address] * (ABNORMAL) CBC with auto differential (08/18/2024 12:34 PM CDT) WBC 8.64 3.80 - 9.90 K/cumm [facility] Comment:Testing performed by : [facility], [address] [place] [address], [address] Hgb 14.1 13.0 - 17.5 g/dL [facility] Comment:Testing performed by : [facility], [address] [facility], [address] Hct 44.4 38.9 - 50.3 % [facility] Comment:Testing performed by : [facility], 1 [facility], [address] Plt 243 150 - 400 K/cumm [facility] Comment:Testing performed by : [address], [address] MPV 11.3 9.1 - 12.3 fL [facility] Comment:Testing performed by : [facility], [address] [facility], [address] RBC 5.12 4.30 - 5.80 M/cumm [facility] Comment:Testing performed by : [facility], [address] [place] [address] MCV 86.7 81.3 - 96.4 fL [facility] Comment:Testing performed by : [facility], [address] [facility], [address] MCH 27.5 27.1 - 33.3 pg [facility] Comment:Testing performed by : [facility], [address] [facility], [address] MCHC 31.8(L) 32.3 - 35.7 g/dL [facility] Comment:Testing performed by : [facility], [address] [facility], [address] RDW CV 16.6(H) 11.1 - 14.9 % [facility] Comment:Testing performed by : [facility], [address] [facility], [address] RDW SD 51.8(H) 35.7 - 48.1 fL [facility] Comment:Testing performed by : [facility], [address] [facility], [address] NRBC abs 0.00 0.00 - 0.01 K/cumm FR[facility]IA [facility] Comment:Testing performed by : [facility], [address] [facility], [id number] Blood 08/18/2024 12:3 4 PM CDT 08/18/2024 4:38 PM CDT us Leyda Aguilar [employer] LAB BLOOD ORDERABLES Final Result FRANCIA SUBRAMANIAN [facility] Department [place] [address] * (ABNORMAL) Vitamin D 25 hydroxy (08/18/2024 12:34 PM CDT) Vitamin D 25-OH 25(L) 30 - 80 ng/mL FRANCIA SUBRAMANIAN Comment:Testing performed by : [facility], [address] [place] [address]., [id number] Blood 08/18/2024 12:3 4 PM CDT 08/18/2024 4:38 PM CDT Leyda Itzel [place] [employer] LAB BLOOD ORDERABLES Final Result Performing Organization Address City/[facility]/ZIP Co de Phone Number [facility] Department [place] [address] * (ABNORMAL) Protime-INR (08/18/2024 12:34 PM CDT) PT 21.7(H) 9.7 - 13.0 sec [facility] Comment:Testing performed by : [facility], [address] [place] [address]., [id number] INR 1.98(H) 0.90 - 1.20 [facility] Comment: Interpretive data Oral anticoagulant therapeutic ranges: Venous thromboembolism prophylaxis or treatment: 2.0-3.0 CARDIOLOGY Standard range: 2.0-3.0 High-intensity range: 2.5-3.5 Refer to indication-specific guidelines for appropriate target ranges for prosthetic heart valve replacement. Current interpretive data was last revised on 2019. Testing performed by: [facility], [address] [place] [address]., [id number] Blood 08/18/2024 12:3 4 PM CDT 08/18/2024 4:38 PM CDT [facility] [employer] LAB BLOOD ORDERABLES Final Result Performing Organization Address City/[facility]/ZIP Co de Phone Number [facility] Department [place] [address] * Phosphorus (08/18/2024 12:34 PM CDT) Phosphorus, pl 3.2 2.3 - 4.5 mg/dL [facility] Comment:Testing performed by : [facility], [address] [place] [address], [place]., [address] Blood 08/18/2024 12:3 4 PM CDT 08/18/2024 4:38 PM CDT us Leyda Itzel Aguilar [employer] LAB BLOOD ORDERABLES Final Result [facility] Department [place] [address] * Magnesium (08/18/2024 12:34 PM CDT) [facility] Magnesium 2.1 1.4 - 2.5 mg/dL [facility] Comment:Testing performed by : [facility], [address] [place] [address], [place]., [address] Blood 08/18/2024 12:3 4 PM CDT 08/18/2024 4:38 PM CDT us Leyda Itezl Aguilar [employer] LAB BLOOD ORDERABLES Final Result [facility] Department [place] [address] * (ABNORMAL) POCT glucose (08/15/2024 11:20 AM CDT) Glucose, POC 231(H) 70 - 199 mg/dL Blood 08/15/2024 11:2 0 AM CDT 08/15/2024 11:20 AM CDT us Thompson Light MD PhD LAB POCT ORDERABLE S - DEVICE Final Result [facility] Department [place] [address] * (ABNORMAL) POCT glucose (08/15/2024 7:36 AM CDT) Pathologist [facility] [place] Glucose, POC 202(H) 70 - 199 mg/dL Comment:Glu2: RN/MD Notified Glucose comment 1 Glu2: RN/MD Notified [facility] Blood 08/15/2024 7:36 AM CDT 08/15/2024 7:36 AM CDT us Thompson Light MD PhD LAB POCT ORDERABLE S - DEVICE Final Result Performing Organization Address [facility] de Phone Number [facility] Department [place] [address] * eGFR (08/15/2024 3:58 AM CDT) [facility] eGFR 89 >=60 mL/min/1. 73 m2 Comment: [...] 08/15/2024 5:38 AM CDT us Angelina Vo [employer] LAB BLOOD ORDERABLES Final Result Performing Organization Address [facility] Co de Phone Number [facility] Department [place] [address] * (ABNORMAL) Protime-INR (08/15/2024 3:58 AM CDT) Pathologist [facility] [place] PT 20.7(H) 9.7 - 13.0 sec INR 1.89(H) 0.90 - 1.20 [facility] Comment: Interpretive data Oral anticoagulant therapeutic ranges: Venous thromboembolism prophylaxis or treatment: 2.0-3.0 CARDIOLOGY Standard range: 2.0-3.0 High-intensity range: 2.5-3.5 Refer to indication-specific guidelines for appropriate target ranges for prosthetic heart valve replacement. Current interpretive data was last revised on 2019. Blood 08/15/2024 3:5 8 AM CDT 08/15/2024 6:03 AM CDT us Angelina Vo NP LAB BLOOD ORDERABLES Final Result [facility] Department [place] [address] * (ABNORMAL) CBC without differential (08/15/2024 3:58 AM CDT) [facility] WBC 7.7 3.8 - 9.9 K/cumm Hgb 12.9(L) 13.0 - 17.5 g/dL [facility] Hct 40.2 38.9 - 50.3 % [facility] Plt 217 150 - 400 K/cumm [facility] MPV 10.9 9.1 - 12.3 fL [facility] RBC 4.71 4.30 - 5.80 M/cumm [facility] MCV 85.4 81.3 - 96.4 fL [facility] MCH 27.4 27.1 - 33.3 pg [facility] MCHC 32.1(L) 32.3 - 35.7 g/dL [facility] RDW CV 16.3(H) 11.1 - 14.9 % [facility] RDW SD 50.0(H) 35.7 - 48.1 fL [facility] NRBC abs 0.00 0.00 - 0.01 K/cumm [facility] Blood 08/15/2024 3:58 AM CDT 08/15/2024 5:38 AM CDT Angelina Vo [employer] LAB BLOOD ORDERABLES Final Result Performing Organization Address [facility]/ZIP Co de Phone Number [facility] Department [place] [address] * (ABNORMAL) Basic metabolic panel (08/15/2024 3:58 AM CDT) [facility] Sodium 136 135 - 145 mmol/L Potassium, pl 4.2 3.3 - 4.9 mmol/L [facility] Chloride 100 97 - 110 mmol/L [facility] CO2 28 22 - 32 mmol/L [facility] Anion gap 8 2 - 15 mmol/L [facility] BUN 22 6 - 25 mg/dL [facility] Creatinine 0.79(L) 0.80 - 1.30 mg/dL [facility] Glucose 208(H) 70 - 199 mg/dL [facility] Comment: Interpretive Data Fasting glucose >/= [...] 2022. Calcium 8.8 8.5 - 10.3 mg/dL [facility] Blood 08/15/2024 3:58 AM CDT 08/15/2024 5:38 AM CDT Angelina Vo NP LAB BLOOD ORDERABLES Final Result Performing Organization Address [facility]/ZIP Co de Phone Number [facility] Department [place] [address] * (ABNORMAL) POCT glucose (08/14/2024 7:31 PM CDT) Glucose, POC 236(H) 70 - 199 mg/dL Comment:Glu2: RN/MD Notified Glucose comment 1 Glu2: RN/MD Notified [facility] Blood 08/14/2024 7:31 PM CDT 08/14/2024 7:31 PM CDT us Thompson Light MD PhD LAB POCT ORDERABLE S - DEVICE Final Result Performing Organization Address City/[facility]/ZIP Co de Phone Number [facility] [place] [address] * POCT glucose (08/14/2024 4:37 PM CDT) Glucose, POC 148 70 - 199 mg/dL Blood 08/14/2024 4:37 PM CDT 08/14/2024 4:37 PM CDT us Thompson Light MD PhD LAB POCT ORDERABLE S - DEVICE Final Result Performing Organization Address City/[facility] Co de Phone Number [facility] [place] [address] * POCT glucose (08/14/2024 11:58 AM CDT) Glucose, POC 197 70 - 199 mg/dL Blood 08/14/2024 11:5 8 AM CDT 08/14/2024 11:58 AM CDT us Thompson Light MD PhD LAB POCT ORDERABLE S - DEVICE Final Result Performing Organization Address City/[facility]/ZIP Co de Phone Number [facility] [place] [address] * POCT glucose (08/14/2024 7:38 AM CDT) Glucose, POC 171 70 - 199 mg/dL Blood 08/14/2024 7:38 AM CDT 08/14/2024 7:38 AM CDT us Thompson Light MD PhD LAB POCT ORDERABLE S - DEVICE Final Result Performing Organization Address City/[facility]/ZIP Co de Phone Number FRANCIA [facility] Department [place] [address] * eGFR (08/14/2024 3:55 AM CDT) [facility] eGFR >90 >=60 mL/min/1. 73 m2 Comment: [...] 08/14/2024 4:23 AM CDT us Angelina Vo NP LAB BLOOD ORDERABLES Final Result Performing Organization Address City/[facility]/ZIP Co de Phone Number FRANCIA [facility] Department [place] [address] * (ABNORMAL) Protime-INR (08/14/2024 3:55 AM CDT) [facility] PT 24.4(H) 9.7 - 13.0 sec INR 2.22(H) 0.90 - 1.20 [facility] Comment: Interpretive data Oral anticoagulant therapeutic ranges: Venous thromboembolism prophylaxis or treatment: 2.0-3.0 CARDIOLOGY Standard range: 2.0-3.0 High-intensity range: 2.5-3.5 Refer to indication-specific guidelines for appropriate target ranges for prosthetic heart valve replacement. Current interpretive data was last revised on 2019. Blood 08/14/2024 3:55 AM CDT 08/14/2024 4:25 AM CDT Angelina Vo NP LAB BLOOD ORDERABLES Final Result [facility] Department [place] [address] * (ABNORMAL) CBC without differential (08/14/2024 3:55 AM CDT) [facility] WBC 7.9 3.8 - 9.9 K/cumm Hgb 12.7(L) 13.0 - 17.5 g/dL [facility] Hct 39.3 38.9 - 50.3 % [facility] Plt 216 150 - 400 K/cumm [facility] MPV 10.8 9.1 - 12.3 fL [facility] RBC 4.61 4.30 - 5.80 M/cumm [facility] MCV 85.2 81.3 - 96.4 fL [facility] MCH 27.5 27.1 - 33.3 pg [facility] MCHC 32.3 32.3 - 35.7 g/dL [facility] RDW CV 16.2(H) 11.1 - 14.9 % [facility] RDW SD 49.2(H) 35.7 - 48.1 fL [facility] NRBC abs 0.00 0.00 - 0.01 K/cumm [facility] Blood 08/14/2024 3:55 AM CDT 08/14/2024 4:23 AM CDT Angelina Vo SC[employer] LAB BLOOD ORDERABLES Final Result Performing Organization Address City/[facility]/ZIP Co de Phone Number [facility] Department [place] [address] * (ABNORMAL) Basic metabolic panel (08/14/2024 3:55 AM CDT) Pathologist [facility] [place] Sodium 137 135 - 145 mmol/L Potassium, pl 4.0 3.3 - 4.9 mmol/L [facility] Chloride 101 97 - 110 mmol/L [facility] CO2 28 22 - 32 mmol/L [facility] Anion gap 8 2 - 15 mmol/L [facility] BUN 22 6 - 25 mg/dL [facility] Creatinine 0.68(L) 0.80 - 1.30 mg/dL [facility] Glucose 176 70 - 199 mg/dL [facility] Comment: Interpretive Data Fasting glucose >/= [...] 2022. Calcium 8.9 8.5 - 10.3 mg/dL [facility] Blood 08/14/2024 3:55 AM CDT 08/14/2024 4:23 AM CDT Angelina Vo [employer] LAB BLOOD ORDERABLES Final Result Performing Organization Address City/[facility] Co de Phone Number [facility] Department [place] [address] * POCT glucose (08/13/2024 7:53 PM CDT) Glucose, POC 154 70 - 199 mg/dL Blood 08/13/2024 7:53 PM CDT 08/13/2024 7:53 PM CDT us Thompson Light MD PhD LAB POCT ORDERABLE S - DEVICE Final Result Performing Organization Address [facility] de Phone Number [facility] [place] [address] * (ABNORMAL) POCT glucose (08/13/2024 4:48 PM CDT) Glucose, POC 209(H) 70 - 199 mg/dL Blood 08/13/2024 4:48 PM CDT 08/13/2024 4:48 PM CDT us Thompson Light MD PhD LAB POCT ORDERABLE S - DEVICE Final Result Performing Organization Address [facility] de Phone Number [facility] [place] [address] * (ABNORMAL) POCT glucose (08/13/2024 11:26 AM CDT) Glucose, POC 224(H) 70 - 199 mg/dL Blood 08/13/2024 11:2 6 AM CDT 08/13/2024 11:26 AM CDT Thompson Light MD PhD LAB POCT ORDERABLE S - DEVICE Final Result Performing Organization Address [facility] de Phone Number [facility] [place] [address] * POCT glucose (08/13/2024 9:26 AM CDT) Glucose, POC 188 70 - 199 mg/dL Blood 08/13/2024 9:26 AM CDT 08/13/2024 9:26 AM CDT us Thompson Light MD PhD LAB POCT ORDERABLE S - DEVICE Final Result Performing Organization Address [facility] Co de Phone Number [facility] Department [place] [address] * eGFR (08/13/2024 3:54 AM CDT) eGFR [...] 08/13/2024 4:25 AM CDT us Angelina Vo SC[employer]ACHINE LAB BLOOD ORDERABLES Final Result Performing Organization Address City/[facility]/ZIP Co de Phone Number FRANCIA SUBRAMANIAN [facility] Department [place] [address] * (ABNORMAL) Protime-INR (08/13/2024 3:54 AM CDT) PT 27.5(H) 9.7 - 13.0 sec INR 2.50(H) 0.90 - 1.20 [facility] Comment: Interpretive data Oral anticoagulant therapeutic ranges: Venous thromboembolism prophylaxis or treatment: 2.0-3.0 CARDIOLOGY Standard range: 2.0-3.0 High-intensity range: 2.5-3.5 Refer to indication-specific guidelines for appropriate target ranges for prosthetic heart valve replacement. Current interpretive data was last revised on 2019. Blood 08/13/2024 3:54 AM CDT 08/13/2024 4:30 AM CDT Angelina Vo SC[employer]ACHINE LAB BLOOD ORDERABLES Final Result [facility] Department [place] [address] * (ABNORMAL) CBC without differential (08/13/2024 3:54 AM CDT) WBC 8.2 3.8 - 9.9 K/cumm Hgb 13.0 13.0 - 17.5 g/dL [facility] Hct 40.4 38.9 - 50.3 % [facility] Plt 215 150 - 400 K/cumm [facility] MPV 10.8 9.1 - 12.3 fL [facility] RBC 4.72 4.30 - 5.80 M/cumm [facility] MCV 85.6 81.3 - 96.4 fL [facility] MCH 27.5 27.1 - 33.3 pg [facility] MCHC 32.2(L) 32.3 - 35.7 g/dL [facility] RDW CV 16.0(H) 11.1 - 14.9 % [facility] RDW SD 49.4(H) 35.7 - 48.1 fL [facility] NRBC abs 0.00 0.00 - 0.01 K/cumm [facility] Blood 08/13/2024 3:54 AM CDT 08/13/2024 4:25 AM CDT Angelina Vo SCALL[employer] C[employer]TER [employer]ACHINE LAB BLOOD ORDERABLES Final Result Performing Organization Address City/[facility]/ZIP Co de Phone Number [facility] Department [place] [address] * (ABNORMAL) Basic metabolic panel (08/13/2024 3:54 AM CDT) [facility] Sodium 137 135 - 145 mmol/L Potassium, pl 4.1 3.3 - 4.9 mmol/L [facility] Chloride 100 97 - 110 mmol/L [facility] CO2 29 22 - 32 mmol/L [facility] Anion gap 8 2 - 15 mmol/L [facility] BUN 25 6 - 25 mg/dL [facility] Creatinine 0.71(L) 0.80 - 1.30 mg/dL [facility] Glucose 160 70 - 199 mg/dL [facility] Comment: Interpretive Data Fasting glucose >/= [...] 2022. Calcium 8.9 8.5 - 10.3 mg/dL [facility] Blood 08/13/2024 3:54 AM CDT 08/13/2024 4:25 AM CDT Angelina Vo SC[employer]ACHINE LAB BLOOD ORDERABLES Final Result [facility] Department [place] [address] * (ABNORMAL) POCT glucose (08/12/2024 8:07 PM CDT) [facility] Glucose, POC 239(H) 70 - 199 mg/dL Blood 08/12/2024 8:07 PM CDT 08/12/2024 8:07 PM CDT us Thompson Light MD PhD LAB POCT ORDERABLE S - DEVICE Final Result Performing Organization Address [facility] de Phone Number [facility] Department [place] [address] * POCT glucose (08/12/2024 4:51 PM CDT) Glucose, POC 197 70 - 199 mg/dL Blood 08/12/2024 4:51 PM CDT 08/12/2024 4:51 PM CDT us Thompson Ligth MD PhD LAB POCT ORDERABLE S - DEVICE Final Result Performing Organization Address [facility] Phone Number [facility] [place] [address] * (ABNORMAL) POCT glucose (08/12/2024 11:20 AM CDT) Glucose, POC 281(H) 70 - 199 mg/dL Blood 08/12/2024 11:2 0 AM CDT 08/12/2024 11:20 AM CDT us Thompson Light MD PhD LAB POCT ORDERABLE S - DEVICE Final Result Performing Organization Address [facility] Phone Number [facility] [place] [address] * POCT glucose (08/12/2024 7:36 AM CDT) Glucose, POC 184 70 - 199 mg/dL Blood 08/12/2024 7:36 AM CDT 08/12/2024 7:36 AM CDT us Thompson Light MD PhD LAB POCT ORDERABLE S - DEVICE Final Result Performing Organization Address [facility]/ZIP Co de Phone Number [facility] Department [place] [address] * eGFR (08/12/2024 4:31 AM CDT) eGFR [...] NP LAB BLOOD ORDERABLES Final Result [facility] Department [place] [address] * (ABNORMAL) Protime-INR (08/12/2024 4:31 AM CDT) PT 23.3(H) 9.7 - 13.0 sec INR 2.12(H) 0.90 - 1.20 [facility] Comment: Interpretive data Oral anticoagulant therapeutic ranges: Venous thromboembolism prophylaxis or treatment: 2.0-3.0 CARDIOLOGY Standard range: 2.0-3.0 High-intensity range: 2.5-3.5 Refer to indication-specific guidelines for appropriate target ranges for prosthetic heart valve replacement. Current interpretive data was last revised on 2019. Blood 08/12/2024 4:31 AM CDT 08/12/2024 6:08 AM CDT Angelina Vo SC[employer]ACHINE LAB BLOOD ORDERABLES Final Result Performing Organization Address [facility] Co de Phone Number [facility] [place] [address] * (ABNORMAL) CBC without differential (08/12/2024 4:31 AM CDT) Pathologist [facility] [place] WBC 6.5 3.8 - 9.9 K/cumm Hgb 13.1 13.0 - 17.5 g/dL [facility] Hct 40.6 38.9 - 50.3 % [facility] Plt 221 150 - 400 K/cumm [facility] MPV 11.0 9.1 - 12.3 fL [facility] RBC 4.76 4.30 - 5.80 M/cumm [facility] MCV 85.3 81.3 - 96.4 fL [facility] MCH 27.5 27.1 - 33.3 pg [facility] MCHC 32.3 32.3 - 35.7 g/dL [facility] RDW CV 16.2(H) 11.1 - 14.9 % [facility] RDW SD 49.7(H) 35.7 - 48.1 fL [facility] NRBC abs 0.00 0.00 - 0.01 K/cumm [facility] Blood 08/12/2024 4:31 AM CDT 08/12/2024 6:02 AM CDT Angelina Vo NP LAB BLOOD ORDERABLES Final Result Performing Organization Address City/[facility] Co de Phone Number [facility] [place] [address] * (ABNORMAL) Basic metabolic panel (08/12/2024 4:31 AM CDT) Sodium 136 135 - 145 mmol/L Potassium, pl 4.1 3.3 - 4.9 mmol/L [facility] Chloride 99 97 - 110 mmol/L [facility] CO2 28 22 - 32 mmol/L [facility] Anion gap 9 2 - 15 mmol/L [facility] BUN 24 6 - 25 mg/dL [facility] Creatinine 0.76(L) 0.80 - 1.30 mg/dL [facility] Glucose 204(H) 70 - 199 mg/dL [facility] Comment: Interpretive Data Fasting glucose >/= [...] 2022. Calcium 9.2 8.5 - 10.3 mg/dL [facility] Blood 08/12/2024 4:31 AM CDT 08/12/2024 6:01 AM CDT us Angelina Vo SCALL[employer] C[employer]TER [employer]ACHINE LAB BLOOD ORDERABLES Final Result [facility] Department [place] [address] * (ABNORMAL) POCT glucose (08/11/2024 8:22 PM CDT) Glucose, POC 294(H) 70 - 199 mg/dL Blood 08/11/2024 8:22 PM CDT 08/11/2024 8:22 PM CDT us Thompson Light MD PhD LAB POCT ORDERABLE S - DEVICE Final Result Performing Organization Address City/[facility]/ZIP Co de Phone Number CERNER [facility] [place] [address] * (ABNORMAL) POCT glucose (08/11/2024 4:58 PM CDT) Glucose, POC 268(H) 70 - 199 mg/dL Comment:Glu2: RN/MD Notified Glucose comment 1 Glu2: RN/MD Notified [facility] Blood 08/11/2024 4:58 PM CDT 08/11/2024 4:58 PM CDT us Thompson Light MD PhD LAB POCT ORDERABLE S - DEVICE Final Result Performing Organization Address City/[facility] [place] [address] * (ABNORMAL) POCT glucose (08/11/2024 11:29 AM CDT) Glucose, POC 208(H) 70 - 199 mg/dL Blood 08/11/2024 11:2 9 AM CDT 08/11/2024 11:29 AM CDT us Thompson Light MD PhD LAB POCT ORDERABLE S - DEVICE Final Result Performing Organization Address City/[facility]/ZIP Co de Phone Number [facility] [place] [address] * POCT glucose (08/11/2024 7:31 AM CDT) Glucose, POC 189 70 - 199 mg/dL Blood 08/11/2024 7:31 AM CDT 08/11/2024 7:31 AM CDT us Thompson Light MD PhD LAB POCT ORDERABLE S - DEVICE Final Result Performing Organization Address City/[facility]/ZIP Co de Phone Number [facility] [place] [address] * (ABNORMAL) POCT glucose (08/11/2024 4:23 AM CDT) Glucose, POC 203(H) 70 - 199 mg/dL Blood 08/11/2024 4:23 AM CDT 08/11/2024 4:23 AM CDT us Thompson Light MD PhD LAB POCT ORDERABLE S - DEVICE Final Result [place] [address] * eGFR (08/11/2024 3:35 AM CDT) Pathologist [facility] [place] eGFR >90 >=60 mL/min/1. 73 m2 Comment: [...] 08/11/2024 4:25 AM CDT us Angelina Vo SCALL[employer] CUT[employer]ACHINE LAB BLOOD ORDERABLES Final Result [facility] [place] [address] * (ABNORMAL) Protime-INR (08/11/2024 3:35 AM CDT) [facility] PT 23.2(H) 9.7 - 13.0 sec INR 2.12(H) 0.90 - 1.20 [facility] Comment: Interpretive data Oral anticoagulant therapeutic ranges: Venous thromboembolism prophylaxis or treatment: 2.0-3.0 CARDIOLOGY Standard range: 2.0-3.0 High-intensity range: 2.5-3.5 Refer to indication-specific guidelines for appropriate target ranges for prosthetic heart valve replacement. Current interpretive data was last revised on 2019. Blood 08/11/2024 3:35 AM CDT 08/11/2024 4:28 AM CDT Angelina Vo NP LAB BLOOD ORDERABLES Final Result Performing Organization Address City/State/[facility] Co de Phone Number [facility] Department [place] [address] * (ABNORMAL) CBC without differential (08/11/2024 3:35 AM CDT) [facility] WBC 8.6 3.8 - 9.9 K/cumm Hgb 13.0 13.0 - 17.5 g/dL [facility] Hct 41.3 38.9 - 50.3 % [facility] Plt 220 150 - 400 K/cumm [facility] MPV 10.6 9.1 - 12.3 fL [facility] RBC 4.72 4.30 - 5.80 M/cumm [facility] MCV 87.5 81.3 - 96.4 fL [facility] MCH 27.5 27.1 - 33.3 pg [facility] MCHC 31.5(L) 32.3 - 35.7 g/dL [facility] RDW CV 16.0(H) 11.1 - 14.9 % [facility] RDW SD 49.8(H) 35.7 - 48.1 fL [facility] NRBC abs 0.00 0.00 - 0.01 K/cumm [facility] Blood 08/11/2024 3:35 AM CDT 08/11/2024 4:25 AM CDT Angelina Vo SC[employer] C[employer]ACH[employer] LAB BLOOD ORDERABLES Final Result Performing Organization Address City/[facility]/ZIP Co de Phone Number [facility] [place] [address] * (ABNORMAL) Basic metabolic panel (08/11/2024 3:35 AM CDT) [facility] Sodium 138 135 - 145 mmol/L Potassium, pl 4.2 3.3 - 4.9 mmol/L [facility] Chloride 101 97 - 110 mmol/L [facility] CO2 28 22 - 32 mmol/L [facility] Anion gap 9 2 - 15 mmol/L [facility] BUN 23 6 - 25 mg/dL [facility] Creatinine 0.74(L) 0.80 - 1.30 mg/dL [facility] Glucose 200(H) 70 - 199 mg/dL [facility] Comment: Interpretive Data Fasting glucose >/= [...] 2022. Calcium 9.5 8.5 - 10.3 mg/dL [facility] Blood 08/11/2024 3:35 AM CDT 08/11/2024 4:25 AM CDT Angelina Vo NP LAB BLOOD ORDERABLES Final Result Performing Organization Address [facility]/ZIP Co de Phone Number [facility] [place] [address] * (ABNORMAL) POCT glucose (08/10/2024 10:53 PM CDT) Glucose, POC 243(H) 70 - 199 mg/dL Blood 08/10/2024 10:5 3 PM CDT 08/10/2024 10:53 PM CDT us Thompson Light MD PhD LAB POCT ORDERABLE S - DEVICE Final Result Performing Organization Address [facility] Co de Phone Number [facility] [place] [address] * (ABNORMAL) POCT glucose (08/10/2024 7:47 PM CDT) Glucose, POC 252(H) 70 - 199 mg/dL Blood 08/10/2024 7:47 PM CDT 08/10/2024 7:47 PM CDT us Thompson Light MD PhD LAB POCT ORDERABLE S - DEVICE Final Result Performing Organization Address [facility] Co de Phone Number [facility] Department [place] [address] * (ABNORMAL) POCT glucose (08/10/2024 4:45 PM CDT) Glucose, POC 253(H) 70 - 199 mg/dL Blood 08/10/2024 4:45 PM CDT 08/10/2024 4:45 PM CDT us Thompson Light MD PhD LAB POCT ORDERABLE S - DEVICE Final Result Performing Organization Address [facility] Co de Phone Number [facility] [place] [address] * (ABNORMAL) POCT glucose (08/10/2024 11:11 AM CDT) Glucose, POC 248(H) 70 - 199 mg/dL Blood 08/10/2024 11:1 1 AM CDT 08/10/2024 11:11 AM CDT Thompson Light MD PhD LAB POCT ORDERABLE S - DEVICE Final Result Performing Organization Address City/[facility]/ZIP Co de Phone Number [facility] Department [place] [address] * POCT glucose (08/10/2024 7:29 AM CDT) Glucose, POC 174 70 - 199 mg/dL Blood 08/10/2024 7:29 AM CDT 08/10/2024 7:29 AM CDT Thompson Light MD PhD LAB POCT ORDERABLE S - DEVICE Final Result Performing Organization Address City/[facility] de Phone Number [facility] [place] [address] * eGFR (08/10/2024 3:47 AM CDT) eGFR [...] CDT 08/10/2024 4:34 AM CDT Angelina Vo [employer] LAB BLOOD ORDERABLES Final Result Performing Organization Address [facility] Co de Phone Number [facility] [place] [address] * (ABNORMAL) Protime-INR (08/10/2024 3:47 AM CDT) PT 24.6(H) 9.7 - 13.0 sec INR 2.24(H) 0.90 - 1.20 [facility] Comment: Interpretive data Oral anticoagulant therapeutic ranges: Venous thromboembolism prophylaxis or treatment: 2.0-3.0 CARDIOLOGY Standard range: 2.0-3.0 High-intensity range: 2.5-3.5 Refer to indication-specific guidelines for appropriate target ranges for prosthetic heart valve replacement. Current interpretive data was last revised on 2019. Blood 08/10/2024 3:47 AM CDT 08/10/2024 4:34 AM CDT Angelina Vo NP LAB BLOOD ORDERABLES Final Result Performing Organization Address [facility] Co de Phone Number [facility] [place] [address] * (ABNORMAL) CBC without differential (08/10/2024 3:47 AM CDT) WBC 7.9 3.8 - 9.9 K/cumm Hgb 12.8(L) 13.0 - 17.5 g/dL [facility] Hct 38.9 38.9 - 50.3 % [facility] Plt 224 150 - 400 K/cumm [facility] MPV 10.6 9.1 - 12.3 fL [facility] RBC 4.61 4.30 - 5.80 M/cumm [facility] MCV 84.4 81.3 - 96.4 fL [facility] MCH 27.8 27.1 - 33.3 pg [facility] MCHC 32.9 32.3 - 35.7 g/dL [facility] RDW CV 16.3(H) 11.1 - 14.9 % [facility] RDW SD 48.2(H) 35.7 - 48.1 fL [facility] NRBC abs 0.00 0.00 - 0.01 K/cumm [facility] Blood 08/10/2024 3:47 AM CDT 08/10/2024 4:33 AM CDT Angelina Vo NP LAB BLOOD ORDERABLES Final Result [facility] Department [place] [address] * Basic metabolic panel (08/10/2024 3:47 AM CDT) Pathologist [facility] [place] Sodium 137 135 - 145 mmol/L Potassium, pl 4.1 3.3 - 4.9 mmol/L [facility] Chloride 100 97 - 110 mmol/L [facility] CO2 27 22 - 32 mmol/L [facility] Anion gap 10 2 - 15 mmol/L [facility] BUN 24 6 - 25 mg/dL [facility] Creatinine 0.86 0.80 - 1.30 mg/dL [facility] Glucose 183 70 - 199 mg/dL [facility] Comment: Interpretive Data Fasting glucose >/= [...] 2022. Calcium 9.4 8.5 - 10.3 mg/dL [facility] Blood 08/10/2024 3:47 AM CDT 08/10/2024 4:34 AM CDT us Angelina Vo [employer] LAB BLOOD ORDERABLES Final Result Performing Organization Address [facility] Co de Phone Number [facility] [place] [address] * POCT glucose (08/10/2024 3:46 AM CDT) Glucose, POC 189 70 - 199 mg/dL Blood 08/10/2024 3:46 AM CDT 08/10/2024 3:46 AM CDT us Thompson Light MD PhD LAB POCT ORDERABLE S - DEVICE Final Result Performing Organization Address [facility] de Phone Number [facility] Department [place] [address] * (ABNORMAL) POCT glucose (08/09/2024 11:50 PM CDT) Glucose, POC 221(H) 70 - 199 mg/dL Blood 08/09/2024 11:5 0 PM CDT 08/09/2024 11:50 PM CDT us Thompson Light MD PhD LAB POCT ORDERABLE S - DEVICE Final Result Performing Organization Address [facility] de Phone Number [facility] [place] [address] * (ABNORMAL) POCT glucose (08/09/2024 7:47 PM CDT) Glucose, POC 264(H) 70 - 199 mg/dL Blood 08/09/2024 7:47 PM CDT 08/09/2024 7:47 PM CDT us Thompson Light MD PhD LAB POCT ORDERABLE S - DEVICE Final Result Performing Organization Address [facility] de Phone Number [facility] Department [place] [address] * (ABNORMAL) POCT glucose (08/09/2024 5:51 PM CDT) Glucose, POC 220(H) 70 - 199 mg/dL Blood 08/09/2024 5:51 PM CDT 08/09/2024 5:51 PM CDT us Thompson Light MD PhD LAB POCT ORDERABLE S - DEVICE Final Result Performing Organization Address [facility] de Phone Number [facility] [place] [address] * POCT glucose (08/09/2024 11:56 AM CDT) Glucose, POC 193 70 - 199 mg/dL Blood 08/09/2024 11:5 6 AM CDT 08/09/2024 11:56 AM CDT us Thompson Light MD PhD LAB POCT ORDERABLE S - DEVICE Final Result Performing Organization Address [facility] de Phone Number [facility] [place] [address] * RPR Blood (08/09/2024 11:40 AM CDT) RPR Nonreactive Nonreactive Blood 08/09/2024 11:4 0 AM CDT 08/09/2024 12:47 PM CDT us Victor M Amado [employer] LAB MICROBIOLOGY - GENERAL ORDERABLES Final Result Performing Organization Address [facility] [place] [address] * Folate (08/09/2024 11:40 AM CDT) [facility] Folic acid 18.3 >=5.0 ng/mL Blood 08/09/2024 11:4 0 AM CDT 08/09/2024 12:47 PM CDT us Victor M Amado [employer] LAB [place] [address] * Vitamin B12 (08/09/2024 11:40 AM CDT) [facility] Vitamin B12 644 230 - 1,250 pg/mL Blood 08/09/2024 11:4 0 AM CDT 08/09/2024 12:47 PM CDT us Victor M Amado [employer] LAB [place]LO[place] [address] * POCT glucose (08/09/2024 7:50 AM CDT) [facility] Glucose, POC 179 70 - 199 mg/dL Blood 08/09/2024 7:50 AM CDT 08/09/2024 7:50 AM CDT us Thompson Light MD PhD LAB POCT ORDERABLE S - [place] [address] * eGFR (08/09/2024 4:32 AM CDT) [facility] eGFR 89 >=60 mL/min/1. 73 m2 Comment: [...] Vo NP LAB BLOOD ORDERABLES Final Result [facility] Department [place] [address] * (ABNORMAL) Protime-INR (08/09/2024 4:32 AM CDT) PT 23.8(H) 9.7 - 13.0 sec INR 2.17(H) 0.90 - 1.20 [facility] Comment: Interpretive data Oral anticoagulant therapeutic ranges: Venous thromboembolism prophylaxis or treatment: 2.0-3.0 CARDIOLOGY Standard range: 2.0-3.0 High-intensity range: 2.5-3.5 Refer to indication-specific guidelines for appropriate target ranges for prosthetic heart valve replacement. Current interpretive data was last revised on 2019. Blood 08/09/2024 4:32 AM CDT 08/09/2024 5:07 AM CDT us Angelina Vo NP LAB BLOOD ORDERABLES Final Result Performing Organization Address [facility] Co de Phone Number [facility] Department [place] [address] * (ABNORMAL) CBC without differential (08/09/2024 4:32 AM CDT) [facility] WBC 8.5 3.8 - 9.9 K/cumm Hgb 13.6 13.0 - 17.5 g/dL [facility] Hct 41.6 38.9 - 50.3 % [facility] Plt 210 150 - 400 K/cumm [facility] MPV 10.5 9.1 - 12.3 fL [facility] RBC 4.91 4.30 - 5.80 M/cumm [facility] MCV 84.7 81.3 - 96.4 fL [facility] MCH 27.7 27.1 - 33.3 pg [facility] MCHC 32.7 32.3 - 35.7 g/dL [facility] RDW CV 15.8(H) 11.1 - 14.9 % [facility] RDW SD 48.7(H) 35.7 - 48.1 fL [facility] NRBC abs 0.00 0.00 - 0.01 K/cumm [facility] Blood 08/09/2024 4:32 AM CDT 08/09/2024 5:03 AM CDT Angelina Vo NP LAB BLOOD ORDERABLES Final Result Performing Organization Address City/[facility] Co de Phone Number [facility] Department [place] [address] * Basic metabolic panel (08/09/2024 4:32 AM CDT) [facility] Sodium 138 135 - 145 mmol/L Potassium, pl 4.2 3.3 - 4.9 mmol/L [facility] Chloride 102 97 - 110 mmol/L [facility] CO2 25 22 - 32 mmol/L [facility] Anion gap 11 2 - 15 mmol/L [facility] BUN 22 6 - 25 mg/dL [facility] Creatinine 0.81 0.80 - 1.30 mg/dL [facility] Glucose 197 70 - 199 mg/dL [facility] Comment: Interpretive Data Fasting glucose >/= [...] 2022. Calcium 9.6 8.5 - 10.3 mg/dL [facility] Blood 08/09/2024 4:32 AM CDT 08/09/2024 5:04 AM CDT us Angelina Vo [employer] LAB BLOOD ORDERABLES Final Result [facility] Department [place] [address] * POCT glucose (08/09/2024 4:29 AM CDT) Glucose, POC 187 70 - 199 mg/dL Blood 08/09/2024 4:29 AM CDT 08/09/2024 4:29 AM CDT us Thompson Light MD PhD LAB POCT ORDERABLE S - DEVICE Final Result [facility] Department [place] [address] * (ABNORMAL) POCT glucose (08/08/2024 11:15 PM CDT) Glucose, POC 207(H) 70 - 199 mg/dL Blood 08/08/2024 11:1 5 PM CDT 08/08/2024 11:15 PM CDT us Thompson Light MD PhD LAB POCT ORDERABLE S - DEVICE Final Result Performing Organization Address [facility] Co de Phone Number [facility] Department [place] [address] * (ABNORMAL) POCT glucose (08/08/2024 7:57 PM CDT) Glucose, POC 293(H) 70 - 199 mg/dL Comment:Glu2: RN/MD Notified Glucose comment 1 Glu2: RN/MD Notified [facility] Blood 08/08/2024 7:57 PM CDT 08/08/2024 7:57 PM CDT us Thompson Light MD PhD LAB POCT ORDERABLE S - DEVICE Final Result Performing Organization Address [facility] Co de Phone Number [facility] Department [place] [address] * POCT glucose (08/08/2024 4:53 PM CDT) Glucose, POC 168 70 - 199 mg/dL Blood 08/08/2024 4:53 PM CDT 08/08/2024 4:53 PM CDT us Thompson Light MD PhD LAB POCT ORDERABLE S - DEVICE Final Result Performing Organization Address City/[facility] de Phone Number [facility] [place] [address] * (ABNORMAL) POCT glucose (08/08/2024 11:23 AM CDT) Glucose, POC 239(H) 70 - 199 mg/dL Comment:Glu2: RN/MD Notified Glucose comment 1 Glu2: RN/MD Notified [facility] Blood 08/08/2024 11:2 3 AM CDT 08/08/2024 11:23 AM CDT us Thompson Light MD PhD LAB POCT ORDERABLE S - DEVICE Final Result Performing Organization Address [facility] de Phone Number [facility] [place] [address] * POCT glucose (08/08/2024 7:41 AM CDT) Glucose, POC 135 70 - 199 mg/dL Blood 08/08/2024 7:41 AM CDT 08/08/2024 7:41 AM CDT us Thompson Light MD PhD LAB POCT ORDERABLE S - DEVICE Final Result Performing Organization Address [facility] de Phone Number [facility] Department [place] [address] * POCT glucose (08/08/2024 5:18 AM CDT) Glucose, POC 133 70 - 199 mg/dL Blood 08/08/2024 5:18 AM CDT 08/08/2024 5:18 AM CDT us Thompson Light MD PhD LAB POCT ORDERABLE S - DEVICE Final Result Performing Organization Address [facility] de Phone Number [facility] [place] [address] * eGFR (08/08/2024 5:07 AM CDT) eGFR 88 >=60 mL/min/1. 73 [...] CDT 08/08/2024 5:42 AM CDT Angelina Vo LAB BLOOD ORDERABLES Final Result Performing Organization Address [facility] de Phone Number [facility] [employer] [address] * (ABNORMAL) Protime-INR (08/08/2024 5:07 AM CDT) PT 22.0(H) 9.7 - 13.0 sec INR 2.01(H) 0.90 - 1.20 [facility] Comment: Interpretive data Oral anticoagulant therapeutic ranges: Venous thromboembolism prophylaxis or treatment: 2.0-3.0 CARDIOLOGY Standard range: 2.0-3.0 High-intensity range: 2.5-3.5 Refer to indication-specific guidelines for appropriate target ranges for prosthetic heart valve replacement. Current interpretive data was last revised on 2019. Blood 08/08/2024 5:07 AM CDT 08/08/2024 5:57 AM CDT Angelina Vo NP LAB BLOOD ORDERABLES Final Result Performing Organization Address [facility] de Phone Number [facility] [place] [address] * (ABNORMAL) CBC without differential (08/08/2024 5:07 AM CDT) [facility] WBC 8.0 3.8 - 9.9 K/cumm Hgb 12.9(L) 13.0 - 17.5 g/dL [facility] Hct 40.1 38.9 - 50.3 % [facility] Plt 227 150 - 400 K/cumm [facility] MPV 10.5 9.1 - 12.3 fL [facility] RBC 4.66 4.30 - 5.80 M/cumm [facility] MCV 86.1 81.3 - 96.4 fL [facility] MCH 27.7 27.1 - 33.3 pg [facility] MCHC 32.2(L) 32.3 - 35.7 g/dL [facility] RDW CV 15.9(H) 11.1 - 14.9 % [facility] RDW SD 49.8(H) 35.7 - 48.1 fL [facility] NRBC abs 0.00 0.00 - 0.01 K/cumm [facility] Blood 08/08/2024 5:07 AM CDT 08/08/2024 5:42 AM CDT Angelina Vo [employer] LAB BLOOD ORDERABLES Final Result [facility] Department [place] [address] * Basic metabolic panel (08/08/2024 5:07 AM CDT) [facility] Sodium 139 135 - 145 mmol/L Potassium, pl 4.1 3.3 - 4.9 mmol/L [facility] Chloride 105 97 - 110 mmol/L [facility] CO2 25 22 - 32 mmol/L [facility] Anion gap 9 2 - 15 mmol/L [facility] BUN 21 6 - 25 mg/dL [facility] Creatinine 0.83 0.80 - 1.30 mg/dL [facility] Glucose 144 70 - 199 mg/dL [facility] Comment: Interpretive Data Fasting glucose >/= [...] 2022. Calcium 9.3 8.5 - 10.3 mg/dL [facility] Blood 08/08/2024 5:07 AM CDT 08/08/2024 5:42 AM CDT Angelina Vo NP LAB BLOOD ORDERABLES Final Result Performing Organization Address City/[facility] Co de Phone Number [facility] Department [place] [address] * POCT glucose (08/08/2024 12:15 AM CDT) Glucose, POC 149 70 - 199 mg/dL Blood 08/08/2024 12:1 5 AM CDT 08/08/2024 12:15 AM CDT Result [facility] Thompson Light MD PhD LAB POCT ORDERABLE S - DEVICE Final Result Performing Organization Address [facility] Co de Phone Number [facility] Department [place] [address] * (ABNORMAL) Vancomycin level trough (08/07/2024 10:49 PM CDT) Vancomycin trough 23.6(H) 10.0 - 20.0 mcg/mL Blood 08/07/2024 10:4 9 PM CDT 08/07/2024 11:24 PM CDT Thompson Napoles MD LAB BLOOD ORDERABLES Fin al Result Performing Organization Address City/[facility]/ZIP Co de Phone Number [facility] [place] [address] * POCT glucose (08/07/2024 8:03 PM CDT) Glucose, POC 169 70 - 199 mg/dL Blood 08/07/2024 8:03 PM CDT 08/07/2024 8:03 PM CDT us Thompson Light MD PhD LAB POCT ORDERABLE S - DEVICE Final Result Performing Organization Address [facility] Co de Phone Number [facility] [place] [address] * POCT glucose (08/07/2024 4:45 PM CDT) Glucose, POC 141 70 - 199 mg/dL Blood 08/07/2024 4:45 PM CDT 08/07/2024 4:45 PM CDT us Thompson Light MD PhD LAB POCT ORDERABLE S - DEVICE Final Result Performing Organization Address [facility] Co de Phone Number [facility] [place] [address] * POCT glucose (08/07/2024 11:50 AM CDT) Glucose, POC 119 70 - 199 mg/dL Blood 08/07/2024 11:5 0 AM CDT 08/07/2024 11:50 AM CDT us Thompson Light MD PhD LAB POCT ORDERABLE S - DEVICE Final Result Performing Organization Address City/[facility] Co de Phone Number [facility] [place] [address] * POCT glucose (08/07/2024 7:18 AM CDT) Glucose, POC 136 70 - 199 mg/dL Blood 08/07/2024 7:18 AM CDT 08/07/2024 7:18 AM CDT us Thompson Light MD PhD LAB POCT ORDERABLE S - DEVICE Final Result Performing Organization Address [facility] Co de Phone Number [facility] Department [place] [address] * eGFR (08/07/2024 3:52 AM CDT) eGFR [...] 3:52 AM CDT 08/07/2024 4:48 AM CDT us Angelina Vo [employer] LAB BLOOD ORDERABLES Final Result Performing Organization Address [facility]/ZIP Co de Phone Number [facility] Department [place] [address] * (ABNORMAL) aPTT (08/07/2024 3:52 AM CDT) aPTT 65(H) 28 - 38 sec Comment: Interpretive Data Heparin therapeutic range: 66.0 - 100.0 seconds. Range based on correlation with therapeutic heparin activity range of 0.3 - 0.7 Units/mL. Current interpretive data was last revised on 2023. Blood 08/07/2024 3:52 AM CDT 08/07/2024 4:41 AM CDT Narrative [facility] - 08/07/2024 4:58 AM CDT STAT PTT [...] PhD LAB BLOOD ORDERABL ES Final Result [facility] Department [place] [address] * (ABNORMAL) Protime-INR (08/07/2024 3:52 AM CDT) PT 20.3(H) 9.7 - 13.0 sec INR 1.86(H) 0.90 - 1.20 [facility] Comment: Interpretive data Oral anticoagulant therapeutic ranges: [...] ORDERABL ES Final Result Performing Organization Address [facility] Co de Phone Number [facility] Department [place] [address] * (ABNORMAL) CBC without differential (08/07/2024 3:52 AM CDT) WBC 7.4 3.8 - 9.9 K/cumm Hgb 12.6(L) 13.0 - 17.5 g/dL [facility] Hct 39.8 38.9 - 50.3 % [facility] Plt 240 150 - 400 K/cumm [facility] MPV 10.6 9.1 - 12.3 fL [facility] RBC 4.55 4.30 - 5.80 M/cumm [facility] MCV 87.5 81.3 - 96.4 fL [facility] MCH 27.7 27.1 - 33.3 pg [facility] MCHC 31.7(L) 32.3 - 35.7 g/dL [facility] RDW CV 16.1(H) 11.1 - 14.9 % [facility] RDW SD 50.7(H) 35.7 - 48.1 fL [facility] NRBC abs 0.00 0.00 - 0.01 K/cumm [facility] Blood 08/07/2024 3:52 AM CDT 08/07/2024 4:49 AM CDT us Angelina Vo NP LAB BLOOD ORDERABLES Final Result Performing Organization Address [facility]/ZIP Co de Phone Number [facility] Department [place] [address] * Basic metabolic panel (08/07/2024 3:52 AM CDT) Sodium 140 135 - 145 mmol/L Potassium, pl 4.1 3.3 - 4.9 mmol/L [facility] Chloride 106 97 - 110 mmol/L [facility] CO2 22 22 - 32 mmol/L [facility] Anion gap 12 2 - 15 mmol/L [facility] BUN 21 6 - 25 mg/dL [facility] Creatinine 0.83 0.80 - 1.30 mg/dL [facility] Glucose 140 70 - 199 mg/dL [facility] Comment: Interpretive Data Fasting glucose >/= [...] 2022. Calcium 9.3 8.5 - 10.3 mg/dL [facility] Blood 08/07/2024 3:52 AM CDT 08/07/2024 4:48 AM CDT us Angelina Vo [employer] LAB BLOOD ORDERABLES Final Result Performing Organization Address City/[facility]/ZIP Co de Phone Number [facility] Department [place] [address] * POCT glucose (08/06/2024 11:21 PM CDT) [facility] Glucose, POC 140 70 - 199 mg/dL Blood 08/06/2024 11:2 1 PM CDT 08/06/2024 11:21 PM CDT us Thompson Light MD PhD LAB POCT ORDERABLE S - DEVICE Final Result Performing Organization Address [facility] Co de Phone Number [facility] Department [place] [address] * (ABNORMAL) aPTT (08/06/2024 8:45 PM CDT) aPTT 43(H) 28 - 38 sec Comment: Interpretive Data Heparin therapeutic range: 66.0 - 100.0 seconds. Range based on correlation with therapeutic heparin activity range of 0.3 - 0.7 Units/mL. Current interpretive data was last revised on 2023. Blood 08/06/2024 8:45 PM CDT 08/06/2024 9:42 PM CDT Narrative [facility] - 08/06/2024 9:52 PM CDT STAT PTT [...] ORDERABL ES Final Result Performing Organization Address [facility]/ZIP Co de Phone Number [facility] [employer] [place] [address] * POCT glucose (08/06/2024 7:42 PM CDT) [facility] Glucose, POC 155 70 - 199 mg/dL Blood 08/06/2024 7:42 PM CDT 08/06/2024 7:42 PM CDT us Thompson Light MD PhD LAB POCT ORDERABLE S - DEVICE Final Result Performing Organization Address [facility]/ZIP Co de Phone Number [facility] [place] [address] * POCT glucose (08/06/2024 4:51 PM CDT) Glucose, POC 172 70 - 199 mg/dL Blood 08/06/2024 4:51 PM CDT 08/06/2024 4:51 PM CDT us Thompson Light MD PhD LAB POCT ORDERABLE S - DEVICE Final Result Performing Organization Address [facility] de Phone Number [facility] [employer] [place] [address] * aPTT (08/06/2024 2:11 PM CDT) aPTT 36 28 - 38 sec Comment: Interpretive Data Heparin therapeutic range: 66.0 - 100.0 seconds. Range based on correlation with therapeutic heparin activity range of 0.3 - 0.7 Units/mL. Current interpretive data was last revised on 2023. Blood 08/06/2024 2:11 PM CDT 08/06/2024 3:33 PM CDT Narrative [facility] - 08/06/2024 3:44 PM CDT Baseline prior to heparin initiation us Thompson Light MD PhD LAB BLOOD ORDERABL ES Final Result Performing Organization Address [facility] de Phone Number [facility] Department [place] [address] * POCT glucose (08/06/2024 11:23 AM CDT) Glucose, POC 149 70 - 199 mg/dL Blood 08/06/2024 11:2 3 AM CDT 08/06/2024 11:23 AM CDT us Thompson Light MD PhD LAB POCT ORDERABLE S - DEVICE Final Result Performing Organization Address [facility] de Phone Number [facility] Department [place] [address] * POCT glucose (08/06/2024 7:33 AM CDT) Glucose, POC 157 70 - 199 mg/dL Blood 08/06/2024 7:33 AM CDT 08/06/2024 7:33 AM CDT us Thompson Light MD PhD LAB POCT ORDERABLE S - DEVICE Final Result [place] [address] * eGFR (08/06/2024 3:35 AM CDT) eGFR [...] 3:35 AM CDT 08/06/2024 4:28 AM CDT us Angelina Vo [employer] LAB BLOOD ORDERABLES Final Result [facility] Department [place] [address] * (ABNORMAL) Protime-INR (08/06/2024 3:35 AM CDT) [facility] PT 17.3(H) 9.7 - 13.0 sec INR 1.59(H) 0.90 - 1.20 [facility] Comment: Interpretive data Oral anticoagulant therapeutic ranges: Venous thromboembolism prophylaxis or treatment: 2.0-3.0 CARDIOLOGY Standard range: 2.0-3.0 High-intensity range: 2.5-3.5 Refer to indication-specific guidelines for appropriate target ranges for prosthetic heart valve replacement. Current interpretive data was last revised on 2019. Blood 08/06/2024 3:35 AM CDT 08/06/2024 4:26 AM CDT Angelina Vo NP LAB BLOOD ORDERABLES Final Result [facility] Department [place] [address] * (ABNORMAL) CBC without differential (08/06/2024 3:35 AM CDT) [facility] WBC 9.0 3.8 - 9.9 K/cumm Hgb 13.1 13.0 - 17.5 g/dL [facility] Hct 41.8 38.9 - 50.3 % [facility] Plt 237 150 - 400 K/cumm [facility] MPV 10.1 9.1 - 12.3 fL [facility] RBC 4.73 4.30 - 5.80 M/cumm [facility] MCV 88.4 81.3 - 96.4 fL [facility] MCH 27.7 27.1 - 33.3 pg [facility] MCHC 31.3(L) 32.3 - 35.7 g/dL [facility] RDW CV 16.2(H) 11.1 - 14.9 % [facility] RDW SD 52.1(H) 35.7 - 48.1 fL [facility] NRBC abs 0.00 0.00 - 0.01 K/cumm [facility] Blood 08/06/2024 3:35 AM CDT 08/06/2024 4:28 AM CDT Angelina Vo LAB BLOOD ORDERABLES Final Result Performing Organization Address City/[facility]/ZIP Co de Phone Number [facility] [place] [address] * (ABNORMAL) Basic metabolic panel (08/06/2024 3:35 AM CDT) [facility] Sodium 139 135 - 145 mmol/L Potassium, pl 4.3 3.3 - 4.9 mmol/L [facility] Chloride 104 97 - 110 mmol/L [facility] CO2 23 22 - 32 mmol/L [facility] Anion gap 12 2 - 15 mmol/L [facility] BUN 18 6 - 25 mg/dL [facility] Creatinine 0.72(L) 0.80 - 1.30 mg/dL [facility] Glucose 170 70 - 199 mg/dL [facility] Comment: Interpretive Data Fasting glucose >/= [...] 2022. Calcium 9.8 8.5 - 10.3 mg/dL [facility] Blood 08/06/2024 3:35 AM CDT 08/06/2024 4:28 AM CDT Angelina Vo NP LAB BLOOD ORDERABLES Final Result Performing Organization Address [facility]/ZIP Co de Phone Number [facility] [place] [address] * POCT glucose (08/06/2024 12:39 AM CDT) Glucose, POC 178 70 - 199 mg/dL Blood 08/06/2024 12:3 9 AM CDT 08/06/2024 12:39 AM CDT us Thompson Light MD PhD LAB POCT ORDERABLE S - DEVICE Final Result Performing Organization Address City/[facility] Co de Phone Number [facility] [place] [address] * (ABNORMAL) POCT glucose (08/05/2024 7:33 PM CDT) Glucose, POC 228(H) 70 - 199 mg/dL Blood 08/05/2024 7:33 PM CDT 08/05/2024 7:33 PM CDT us Thompson Light MD PhD LAB POCT ORDERABLE S - DEVICE Final Result Performing Organization Address [facility] de Phone Number [facility] [place] [address] * POCT glucose (08/05/2024 4:46 PM CDT) Glucose, POC 144 70 - 199 mg/dL Blood 08/05/2024 4:46 PM CDT 08/05/2024 4:46 PM CDT us Thompson Light MD PhD LAB POCT ORDERABLE S - DEVICE Final Result Performing Organization Address [facility] Co de Phone Number [facility] [place] [address] * (ABNORMAL) POCT glucose (08/05/2024 11:15 AM CDT) Glucose, POC 238(H) 70 - 199 mg/dL Blood 08/05/2024 11:1 5 AM CDT 08/05/2024 11:15 AM CDT Thompson Light MD PhD LAB POCT ORDERABLE S - DEVICE Final Result Performing Organization Address City/[facility]/ZIP Co de Phone Number [facility] Department [place] [address] * POCT glucose (08/05/2024 7:31 AM CDT) [facility] Glucose, POC 190 70 - 199 mg/dL Blood 08/05/2024 7:31 AM CDT 08/05/2024 7:31 AM CDT Thompson Light MD PhD LAB POCT ORDERABLE S - DEVICE Final Result Performing Organization Address [facility] de Phone Number [facility] Department [place] [address] * (ABNORMAL) Troponin I high-sensitivity 2-hour (08/05/2024 3:49 AM CDT) [facility] Trop I hs 39(H) <=35 ng/L Comment: Interpretive Data For further [facility] resources including the diagnostic algorithm and an aid in interpretation, copy and paste this link: https://bjhlab.testcatalog.org/show/hsTrop-1 Current Interpretive Data last revised 2019. Trop I hs delta See Comment ng/L [facility] Comment:Inappropriate collec tion time to report a delta. Trop I hs pct delta See Comment % [facility] Comment:Inappropriate collec tion time to report a delta. Trop I hs interp See Comment [facility] Comment:Inappropriate collec tion time to report a delta. Blood 08/05/2024 3:49 AM CDT 08/05/2024 4:34 AM CDT us Catie Moody MD LAB BLOOD ORDERABLES Final R esult Performing Organization Address [facility] de Phone Number [facility] [place] [address] * eGFR (08/05/2024 3:49 AM CDT) eGFR [...] BLOOD ORDERABLES Final Result Performing Organization Address [facility] Co de Phone Number [facility] [place] [address] * (ABNORMAL) Protime-INR (08/05/2024 3:49 AM CDT) PT 17.7(H) 9.7 - 13.0 sec INR 1.62(H) 0.90 - 1.20 [facility] Comment: Interpretive data Oral anticoagulant therapeutic ranges: Venous thromboembolism prophylaxis or treatment: 2.0-3.0 CARDIOLOGY Standard range: 2.0-3.0 High-intensity range: 2.5-3.5 Refer to indication-specific guidelines for appropriate target ranges for prosthetic heart valve replacement. Current interpretive data was last revised on 2019. Blood 08/05/2024 3:49 AM CDT 08/05/2024 4:35 AM CDT Angelina Vo NP LAB BLOOD ORDERABLES Final Result Performing Organization Address City/[facility]/ZIP Co de Phone Number [facility] Department [place] [address] * (ABNORMAL) CBC without differential (08/05/2024 3:49 AM CDT) WBC 8.4 3.8 - 9.9 K/cumm Hgb 12.8(L) 13.0 - 17.5 g/dL [facility] Hct 40.7 38.9 - 50.3 % [facility] Plt 226 150 - 400 K/cumm [facility] MPV 10.3 9.1 - 12.3 fL [facility] RBC 4.60 4.30 - 5.80 M/cumm [facility] MCV 88.5 81.3 - 96.4 fL [facility] MCH 27.8 27.1 - 33.3 pg [facility] MCHC 31.4(L) 32.3 - 35.7 g/dL [facility] RDW CV 16.2(H) 11.1 - 14.9 % [facility] RDW SD 51.8(H) 35.7 - 48.1 fL [facility] NRBC abs 0.00 0.00 - 0.01 K/cumm [facility] Blood 08/05/2024 3:49 AM CDT 08/05/2024 4:34 AM CDT us Angelina Vo NP LAB BLOOD ORDERABLES Final Result Performing Organization Address City/[facility]/ZIP Co de Phone Number [facility] Department [place] [address] * (ABNORMAL) Basic metabolic panel (08/05/2024 3:49 AM CDT) Pathologist [facility] [place] Sodium 140 135 - 145 mmol/L Potassium, pl 4.3 3.3 - 4.9 mmol/L [facility] Chloride 106 97 - 110 mmol/L [facility] CO2 23 22 - 32 mmol/L [facility] Anion gap 11 2 - 15 mmol/L [facility] BUN 15 6 - 25 mg/dL [facility] Creatinine 0.73(L) 0.80 - 1.30 mg/dL [facility] Glucose 196 70 - 199 mg/dL [facility] Comment: Interpretive Data Fasting glucose >/= [...] 2022. Calcium 9.0 8.5 - 10.3 mg/dL [facility] Blood 08/05/2024 3:49 AM CDT 08/05/2024 4:34 AM CDT Angelina Vo NP LAB BLOOD ORDERABLES Final Result [facility] Department [place] [address] * Vancomycin level trough Draw trough 30 minutes prior to 4th dose. (08/04/2024 9:02 PM CDT) Pathologist [facility] [place] Vancomycin trough 14.5 10.0 - 20.0 mcg/mL Blood 08/04/2024 9:02 PM CDT 08/04/2024 9:55 PM CDT Narrative [facility] - 08/04/2024 10:27 PM CDT Draw trough 30 minutes prior to 4th dose. us Miryam Fonseca MD LAB BLOOD ORDERABLES Final Result Performing Organization Address City/[facility]/ZIP Co de Phone Number [facility] Department [place] [address] * (ABNORMAL) POCT glucose (08/04/2024 7:37 PM CDT) Pathologist [facility] [place] Glucose, POC 250(H) 70 - 199 mg/dL Blood 08/04/2024 7:37 PM CDT 08/04/2024 7:37 PM CDT us Thompson Light MD PhD LAB POCT ORDERABLE S - DEVICE Final Result Performing Organization Address [facility] Co de Phone Number [facility] Department [place] [address] * (ABNORMAL) Aerobic and anaerobic culture and gram stain Driveline site Abdominal (08/04/2024 12:47 PM CDT) [facility] Direct Specimen Exam Stain: No polymorphonuclear leukocytes seen. No organisms seen. Report Final Report: Rare Staphylococcus aureus Methicillin resistant (MRSA) by penicillin binding protein 2a (PBP2a) testing. (.) [facility] Organism STAPHYLOCOCCUS AUREUS [facility] Driveline site (Abdominal) 08/04/2024 12:47 PM CDT 08/04/2024 2:05 PM CDT Narrative [facility] - 08/09/2024 2:14 PM CDT Testing performed by [facility] ([phone]) Specimens submitted from normally sterile body sites [...] MICROBIOLOGY - G ENERAL ORDERABLES Final Result Performing Organization Address City/[facility]/ZIP Co de Phone Number [facility] Department [place] [address] * (ABNORMAL) POCT glucose (08/04/2024 11:46 AM CDT) Glucose, POC 286(H) 70 - 199 mg/dL Comment:Glu2: RN/MD Notified Glucose comment 1 Glu2: RN/MD Notified [facility] Blood 08/04/2024 11:4 6 AM CDT 08/04/2024 11:46 AM CDT us Thompson Light MD PhD LAB POCT ORDERABLE S - DEVICE Final Result [facility] [place] [address] * POCT glucose (08/04/2024 7:46 AM CDT) Glucose, POC 170 70 - 199 mg/dL Blood 08/04/2024 7:46 AM CDT 08/04/2024 7:46 AM CDT us Thompson Light MD PhD LAB POCT ORDERABLE S - DEVICE Final Result Performing Organization Address [facility] Co de Phone Number [facility] Department [place] [address] * eGFR (08/04/2024 3:23 AM CDT) eGFR [...] BLOOD ORDERABLES Final Result Performing Organization Address [facility] Co de Phone Number [facility] Department [place] [address] * (ABNORMAL) Protime-INR (08/04/2024 3:23 AM CDT) PT 17.6(H) 9.7 - 13.0 sec INR 1.61(H) 0.90 - 1.20 [facility] Comment: Interpretive data Oral anticoagulant therapeutic ranges: Venous thromboembolism prophylaxis or treatment: 2.0-3.0 CARDIOLOGY Standard range: 2.0-3.0 High-intensity range: 2.5-3.5 Refer to indication-specific guidelines for appropriate target ranges for prosthetic heart valve replacement. Current interpretive data was last revised on 2019. Blood 08/04/2024 3:23 AM CDT 08/04/2024 4:27 AM CDT Angelina oV [employer] LAB BLOOD ORDERABLES Final Result Performing Organization Address City/[facility]/ZIP Co de Phone Number [facility] Department [place] [address] * (ABNORMAL) CBC without differential (08/04/2024 3:23 AM CDT) WBC 8.1 3.8 - 9.9 K/cumm Hgb 12.1(L) 13.0 - 17.5 g/dL [facility] Hct 36.7(L) 38.9 - 50.3 % [facility] Plt 251 150 - 400 K/cumm [facility] MPV 10.6 9.1 - 12.3 fL [facility] RBC 4.31 4.30 - 5.80 M/cumm [facility] MCV 85.2 81.3 - 96.4 fL [facility] MCH 28.1 27.1 - 33.3 pg [facility] MCHC 33.0 32.3 - 35.7 g/dL [facility] RDW CV 15.9(H) 11.1 - 14.9 % [facility] RDW SD 50.0(H) 35.7 - 48.1 fL [facility] NRBC abs 0.00 0.00 - 0.01 K/cumm [facility] Blood 08/04/2024 3:23 AM CDT 08/04/2024 4:32 AM CDT us Angelina Vo [employer] LAB BLOOD ORDERABLES Final Result Performing Organization Address City/[facility]/ZIP Co de Phone Number [facility] Department [place] [address] * Magnesium (08/04/2024 3:23 AM CDT) Pathologist [facility] [place] Magnesium 1.9 1.4 - 2.5 mg/dL Blood 08/04/2024 3:23 AM CDT 08/04/2024 4:32 AM CDT Angelina Vo NP LAB BLOOD ORDERABLES Final Result [facility] Department [place] [address] * (ABNORMAL) Comprehensive metabolic panel (08/04/2024 3:23 AM CDT) Pathologist [facility] [place] Sodium 136 135 - 145 mmol/L Potassium, pl 3.8 3.3 - 4.9 mmol/L [facility] Chloride 103 97 - 110 mmol/L [facility] CO2 21(L) 22 - 32 mmol/L [facility] Anion gap 12 2 - 15 mmol/L [facility] BUN 15 6 - 25 mg/dL [facility] Creatinine 0.82 0.80 - 1.30 mg/dL [facility] Glucose 181 70 - 199 mg/dL [facility] Comment: Interpretive Data Fasting glucose >/= [...] 2022. Calcium 8.4(L) 8.5 - 10.3 mg/dL [facility] Comment:Reviewed Bilirubin, total 0.5 0.1 - 1.2 mg/dL [facility] Protein, pl 6.6 6.5 - 8.5 g/dL [facility] Albumin 3.1(L) 3.5 - 5.0 g/dL [facility] Alk phos 101 40 - 130 Units/L [facility] ALT 12 7 - 55 Units/L [facility] AST 27 10 - 50 Units/L [facility] Blood 08/04/2024 3:23 AM CDT 08/04/2024 4:32 AM CDT us Angelina Vo [employer] LAB BLOOD ORDERABLES Final Result Performing Organization Address [facility] Co de Phone Number [facility] Department [place] [address] * (ABNORMAL) POCT glucose (08/03/2024 8:00 PM CDT) [facility] Glucose, POC 297(H) 70 - 199 mg/dL Comment:Glu2: RN/MD Notified Glucose comment 1 Glu2: RN/MD Notified [facility] Blood 08/03/2024 8:00 PM CDT 08/03/2024 8:00 PM CDT us Thompson Light MD PhD LAB POCT ORDERABLE S - DEVICE Final Result Performing Organization Address [facility] de Phone Number [facility] Department [place] [address] * ECG 12 lead (08/03/2024 4:30 PM CDT) [facility] Ventricular Rate EKG/Min 99 BPM [facility] QRS-Interval (MSEC) 132 ms [facility] QT-Interval (MSEC) 412 ms [facility] QTc 528 ms [facility] R [place] 33 degrees [facility] T [place] 101 degrees [facility] Diagnosis Atrial fibrillation with premature ventricular or aberrantly conducted complexes Non-specific intra-ventricul ar conduction block Nonspecific T wave abnormality Abnormal ECG Confirmed by CRISTEL VELASQUEZ M.D ([id number]) on 08/17/2024 2:38:34 PM [facility] 08/03/2024 4:30 PM CDT 08/17/2024 2:38 PM CDT Angelina Vo [employer] ECG ORDERABLES Final Resul t Performing Organization Address [facility] Co de Phone Number [facility] * (ABNORMAL) POCT glucose (08/03/2024 4:26 PM CDT) Glucose, POC 320(H) 70 - 199 mg/dL Blood 08/03/2024 4:26 PM CDT 08/03/2024 4:26 PM CDT Thompson Light MD PhD LAB POCT ORDERABLE S - DEVICE Final Result Performing Organization Address [facility] de Phone Number [facility] Department [place] [address] * (ABNORMAL) POCT glucose (08/03/2024 12:52 PM CDT) Glucose, POC 214(H) 70 - 199 mg/dL Blood 08/03/2024 12:5 2 PM CDT 08/03/2024 12:52 PM CDT Thom Araujo MD LAB POCT ORDERABLES - DEV ICE Final Result Performing Organization Address [facility] de Phone Number [facility] Department [place] [address] * POCT glucose (08/03/2024 7:16 AM CDT) Glucose, POC 193 70 - 199 mg/dL Blood 08/03/2024 7:16 AM CDT 08/03/2024 7:16 AM CDT Thom Araujo MD LAB POCT ORDERABLES - DEV ICE Final Result Performing Organization Address [facility] de Phone Number [facility] [place] [address] * POCT glucose (08/03/2024 4:17 AM CDT) Glucose, POC 197 70 - 199 mg/dL Blood 08/03/2024 4:17 AM CDT 08/03/2024 4:17 AM CDT Thom Aruajo MD LAB POCT ORDERABLES - DEV ICE Final Result Performing Organization Address [facility]/[place] [address] * (ABNORMAL) POCT glucose (08/03/2024 1:54 AM CDT) [facility] Glucose, POC 239(H) 70 - 199 mg/dL Comment:Glu2: RN/MD Notified Glucose comment 1 Glu2: RN/MD Notified [facility] Blood 08/03/2024 1:54 AM CDT 08/03/2024 1:54 AM CDT Thom Araujo MD LAB POCT ORDERABLES - DEV ICE Final Result Performing Organization Address [facility] Co de Phone Number [facility] [address] * (ABNORMAL) Troponin I high-sensitivity 4-hour (08/02/2024 9:24 PM CDT) [facility] Trop I hs 36(H) <=35 ng/L Comment: Interpretive Data For further [facility] resources including the diagnostic algorithm and an aid in interpretation, copy and paste this link: https://bjhlab.testcatalog.org/show/hsTrop-1 Current Interpretive Data last revised 2019. Trop I hs delta 7 ng/L [facility] Trop I hs interp Equivocal [facility] Blood 08/02/2024 9:24 PM CDT 08/02/2024 10:01 PM CDT us Catie Moody MD LAB BLOOD ORDERABLES Final R [facility]ult [facility] Department [place] [address] * (ABNORMAL) POCT glucose (08/02/2024 9:20 PM CDT) Glucose, POC 208(H) 70 - 199 mg/dL Blood 08/02/2024 9:20 PM CDT 08/02/2024 9:20 PM CDT us Thompson Light MD PhD LAB POCT ORDERABLE S - DEVICE Final Result Performing Organization Address [facility] Co de Phone Number [facility] Department [place] [address] * XR Chest PA Lateral 2 Views [...] it. Electronically signed by: Subhash Alvares M.D. us Catie Moody MD IMG CT PROCEDURES [...] 2hr, 4hr, 6hr) (08/02/2024 5:29 PM CDT) Pathologist [facility] [place] Trop I hs 29 <=35 ng/L Comment: Interpretive Data For further [facility] resources including the diagnostic algorithm and an aid in interpretation, copy and paste this link: https://bjhlab.testcatalog.org/show/hsTrop-1 Current Interpretive Data last revised 2019. Blood 08/02/2024 5:29 PM CDT 08/02/2024 5:56 PM CDT us Catie Moody MD LAB BLOOD ORDERABLES Final R esult [facility] [place] [address] * (ABNORMAL) Urinalysis reflex to microscopic and culture Urine (08/02/2024 5:29 PM CDT) Pathologist [facility] [place] Color, ur Straw Yellow Clarity, ur Clear Clear [facility] Specific gravity, ur 1.022 1.003 - 1.030 [facility] pH, urine 7.5 [facility] Comment: Interpretive Data U rine pH is affected by diet, medications, systemic acid-base disturbances, and renal tubular function. pH may affect urinary stone formation. For example, urine pH below 6.0 may help reduce the tendency for calcium phosphate stones and pH greater than 6.0 may reduce the tendency for uric acid stone formation. Source: [facility] [employer] Current Interpretive Data was last revised on 2017 Protein, ur ql Trace Negative [facility] Glucose, ur ql 4+(A) Negative [facility] Ketones, ur 2+(A) Negative [facility] Bilirubin, ur Negative Negative [facility] Blood, ur Negative Negative [facility] Urobilinogen, ur <2.0 <2.0 mg/dL [facility] Nitrite, ur Negative Negative [facility] Leukocyte esterase, ur Negative Negative [facility] UA reflex comment Reflex conditions for microscopic UA and culture not met. [facility] Urine 08/02/2024 5:29 PM CDT 08/02/2024 11:27 PM CDT Narrative [facility] - 08/03/2024 12:06 AM CDT If patient unable to urinate, straight cath us Paris Aguila MD LAB MICROBIOLOGY - GENERAL ORDERABLES Final Result [facility] Department [place] [address] * eGFR (08/02/2024 4:36 PM CDT) eGFR 85 >=60 mL/min/1. 73 m2 Comment: [...] PM CDT 08/02/2024 4:55 PM CDT us Paris Aguila MD LAB BLOOD ORDERABLES Final Result [facility] Department [place] [address] * (ABNORMAL) Differential, auto (08/02/2024 4:36 PM CDT) Neutrophil abs 9.6(H) 1.5 - 6.5 K/cumm Imm gran abs 0.1 0.0 - 0.1 K/cumm [facility] Lymphocyte abs 0.5(L) 0.8 - 3.3 K/cumm [facility] Monocyte abs 0.4 0.2 - 0.8 K/cumm [facility] Eosinophil abs 0.0 0.0 - 0.5 K/cumm [facility] Basophil abs 0.1 0.0 - 0.1 K/cumm [facility] Neutrophil pct 89.6 % [facility] Comment: Interpretive Data Percent cell count reference ranges are not reported, since discordance with absolute values may lead to misinterpretation of CBC data. Current Interpretive Data was last revised on 2017. Imm gran pct 0.6 % [facility] Comment: Interpretive Data Percent cell count reference ranges are not reported, since discordance with absolute values may lead to misinterpretation of CBC data. Current Interpretive Data was last revised on 2017. Lymphocyte pct 4.7 % [facility] Comment: Interpretive Data Percent cell count reference ranges are not reported, since discordance with absolute values may lead to misinterpretation of CBC data. Current Interpretive Data was last revised on 2017. Monocyte pct 4.0 % [facility] Comment: Interpretive Data Percent cell count reference ranges are not reported, since discordance with absolute values may lead to misinterpretation of CBC data. Current Interpretive Data was last revised on 2017. Eosinophil pct 0.4 % [facility] Comment: Interpretive Data Percent cell count reference ranges are not reported, since discordance with absolute values may lead to misinterpretation of CBC data. Current Interpretive Data was last revised on 2017. Basophil pct 0.7 % [facility] Comment: Interpretive Data Percent cell count reference ranges are not reported, since discordance with absolute values may lead to misinterpretation of CBC data. Current Interpretive Data was last revised on 2017. Blood 08/02/2024 4:36 PM CDT 08/02/2024 4:55 PM CDT Miryam Rodriguez MD LAB BLOOD ORDERABLES Fin al Result [facility] Department [place] [address] * (ABNORMAL) Pro B-type natriuretic peptide (08/02/2024 [...] Heart J. 2006:27:330-337. 2. Good RW, Renea KWAN. J. AM Omi Cardiol: Cardiovasc Imag. 2009;2: 216- 225. Interpretive Data Last Revised Date: 2018. Blood 08/02/2024 4:36 PM CDT 08/02/2024 4:44 PM CDT us Paris Aguila MD LAB BLOOD ORDERABLES Final Result Performing Organization Address [facility]/ZIP Co de Phone Number [facility] Department [place] [address] * Thyroid Function [place] (08/02/2024 4:36 PM CDT) [facility] TSH 2.70 0.30 - 4.20 mcIUnit/mL Blood 08/02/2024 4:36 PM CDT 08/02/2024 4:44 PM CDT us Catie Moody MD LAB BLOOD ORDERABLES Final R esult Performing Organization Address City/[facility]/ZIP Co de Phone Number [facility] Department [place] [address] * Respiratory pathogen panel Nasopharyngeal (08/02/2024 4:36 PM CDT) [facility] Influenza A RNA Not Detected Not Detected Influenza B RNA Not Detected Not Detected [facility] RSV RNA Not Detected Not Detected [facility] COVID-19 RNA Not Detected Not Detected [facility] Coronavirus 229E RNA Not Detected Not Detected [facility] Coronavirus HKU1 RNA Not Detected Not Detected [facility] Coronavirus NL63 RNA Not Detected Not Detected [facility] Coronavirus OC43 RNA Not Detected Not Detected [facility] Adenovirus DNA Not Detected Not Detected [facility] Metapneumovirus RNA Not Detected Not Detected [facility] Rhinovirus/Enterov irus RNA Not Detected Not Detected [facility] Parainfluenza 1 RNA Not Detected Not Detected [facility] Parainfluenza 2 RNA Not Detected Not Detected [facility] Parainfluenza 3 RNA Not Detected Not Detected [facility] Parainfluenza 4 RNA Not Detected Not Detected [facility] B. pertussis DNA Not Detected Not Detected [facility] B. parapertussis DNA Not Detected Not Detected [facility] C. pneumoniae DNA Not Detected Not Detected [facility] M. pneumoniae DNA Not Detected Not Detected [facility] Nasopharyngeal 08/02/2024 4: 36 PM CDT 08/02/2024 6:04 PM CDT Narrative [facility] - 08/02/2024 7:26 PM CDT Is the Patient experiencing symptoms consistent with COVID?->Yes Surveillance testing for transplant patient?->No Interpretive Data The [employer] FilmArray Respiratory Panel (RP2.1) assay is a [...] assay has FDA clearance for testing of SCALLOP CUTTER MACHINE swabs. The performance of additional specimen types has been assessed by the performing laboratory. The performance characteristics of this assay have been determined by [facility] Molecular Infectious Disease Laboratory. Current interpretive data was last revised on 22. us Catie Moody MD LAB MICROBIOLOGY - GENERAL O RDERABLES Final Result [facility] Department [place] [address] * (ABNORMAL) CBC with auto differential (08/02/2024 4:36 PM CDT) WBC 10.7(H) 3.8 - 9.9 K/cumm Hgb 15.2 13.0 - 17.5 g/dL [facility] Hct 46.6 38.9 - 50.3 % [facility] Plt 247 150 - 400 K/cumm [facility] MPV 10.0 9.1 - 12.3 fL [facility] RBC 5.44 4.30 - 5.80 M/cumm [facility] MCV 85.7 81.3 - 96.4 fL [facility] MCH 27.9 27.1 - 33.3 pg [facility] MCHC 32.6 32.3 - 35.7 g/dL [facility] RDW CV 16.0(H) 11.1 - 14.9 % [facility] RDW SD 48.3(H) 35.7 - 48.1 fL [facility] NRBC abs 0.00 0.00 - 0.01 K/cumm [facility] Blood 08/02/2024 4:36 PM CDT 08/02/2024 4:55 PM CDT Paris Aguila MD LAB BLOOD ORDERABLES Final Result [facility] Department [place] [address] * Blood culture Blood Peripheral (08/02/2024 4:36 PM CDT) Report Final Report: No growth Blood (Peripheral) 08/02/2024 4:36 PM CDT 08/02/2024 5:11 PM CDT Narrative [facility] - 08/07/2024 7:00 AM CDT From [...] performance characteristics have been verified by the [facility] Microbiology Laboratory. For questions about this culture, contact the Microbiology Laboratory at [phone]. Interpretive data was last revised on 24. Catie Moody MD LAB MICROBIOLOGY - GENERAL O RDERABLES Final Result Performing Organization Address City/[facility]/ZIP Co de Phone Number FRANCIA SUBRAMANIAN Liliya [facility] Department [place] [address] * Blood culture Blood Peripheral (08/02/2024 4:36 PM CDT) Report Final Report: No growth Blood (Peripheral) 08/02/2024 4:36 PM CDT 08/02/2024 4:45 PM CDT Masha FELDMAN [facility] - 08/07/2024 7:00 AM CDT Draw Blood [...] performance characteristics have been verified by the [facility]. For questions about this culture, contact the Microbiology Laboratory at [phone]. Interpretive data was last revised on 24. us Catie Moody MD LAB MICROBIOLOGY - GENERAL O RDERABLES Final Result Performing Organization Address City/[facility]/ZIP Co de Phone Number FRANCIA SUBRAMANIAN Liliya [facility] Department [place] [address] * (ABNORMAL) aPTT (08/02/2024 4:36 PM CDT) [...] ORDERABLES Final R esult Performing Organization Address [facility] [place] [address] * (ABNORMAL) Protime-INR (08/02/2024 4:36 PM CDT) PT 19.2(H) 9.7 - 13.0 sec INR 1.76(H) 0.90 - 1.20 [facility] Comment: Interpretive data Oral anticoagulant therapeutic ranges: Venous thromboembolism prophylaxis or treatment: 2.0-3.0 CARDIOLOGY Standard range: 2.0-3.0 High-intensity range: 2.5-3.5 Refer to indication-specific guidelines for appropriate target ranges for prosthetic heart valve replacement. Current interpretive data was last revised on 2019. Blood 08/02/2024 4:36 PM CDT 08/02/2024 4:51 PM CDT Catie Moody MD LAB BLOOD ORDERABLES Final R esult Performing Organization Address [facility] [place] [address] * (ABNORMAL) Hemoglobin A1c (08/02/2024 4:36 PM CDT) Hgb A1C 9.5(H) 4.0 - 5.6 % Estimated Average Glucose 226 mg/dL [facility] Comment: The ADA recommends reporting an [...] PhD LAB BLOOD ORDERABL ES Final Result [facility] Department [place] [address] * (ABNORMAL) Comprehensive metabolic panel (08/02/2024 4:36 PM CDT) Sodium 137 135 - 145 mmol/L Potassium, pl 4.2 3.3 - 4.9 mmol/L [facility] Chloride 94(L) 97 - 110 mmol/L [facility] CO2 24 22 - 32 mmol/L [facility] Anion gap 19(H) 2 - 15 mmol/L [facility] BUN 15 6 - 25 mg/dL [facility] Creatinine 0.91 0.80 - 1.30 mg/dL [facility] Glucose 349(H) 70 - 199 mg/dL [facility] Comment: Interpretive Data Fasting glucose >/= [...] 2022. Calcium 10.7(H) 8.5 - 10.3 mg/dL [facility] Bilirubin, total 0.6 0.1 - 1.2 mg/dL [facility] Protein, pl 8.6(H) 6.5 - 8.5 g/dL [facility] Albumin 4.1 3.5 - 5.0 g/dL [facility] Alk phos 151(H) 40 - 130 Units/L [facility] ALT 17 7 - 55 Units/L [facility] AST 29 10 - 50 Units/L [facility] Blood 08/02/2024 4:36 PM CDT 08/02/2024 4:44 PM CDT Paris Aguila MD LAB BLOOD ORDERABLES Final Result [facility] Department [place] [address] * (ABNORMAL) ECG 12-LEAD (08/02/2024 3:57 PM CDT) Narrative [facility] - 08/02/2024 3:57 PM CDT Paris [...] in the ED Paris Aguila MD 08/02/24 4155 Paris Aguila MD ECG ORDERABLES Final Resul t Performing Organization Address City/[facility] Co de Phone Number [facility] * (ABNORMAL) POCT glucose (08/02/2024 3:54 PM CDT) Glucose, POC 332(H) 70 - 199 mg/dL Blood 08/02/2024 3:54 PM CDT 08/02/2024 3:54 PM CDT us Notinfile Unknown LAB POCT ORDERABLES - DEVICE F inal Result Performing Organization Address [facility] de Phone Number [facility] Department [place] [address] * (ABNORMAL) Protime-INR (08/01/2024) INR 1.90(A) 0.90 - 1.10 EXTERNAL LAB Blood Historical Provider LAB BLOOD ORDERABLES Paulette l Result Performing Organization Address City/[facility]/ZIP Co de Phone Number EXTERNAL LAB * (ABNORMAL) Lipid panel (05/25/2024 10:48 AM G[facility]) Cholesterol 117 30 - 199 mg/dL Comment: [...] revised on 2018. Triglycerides 159(H) <=149 mg/dL [facility] Comment: Interpretive Data Ages < or [...] revised on 2018. HDL 38(L) >=40 mg/dL [facility] Comment: Interpretive Data Ages < or [...] on 2018. LDL, calculated 52 <=129 mg/dL [facility] Comment: Interpretive Data Ages < or = 19 years Acceptable: <110 mg/dL Borderline high: 110-129 mg/dL High: >or= 130 mg/dL Ages > or = 20 years Optimal: <100 mg/dL Near optimal: 100-129 mg/dL Borderline high: 130-159 mg/dL High: >160 mg/dL Calculated using the Albrecht LDL-C estimating equation. This equation was implemented [...] revised on 2024. Non-HDL Cholesterol 79 mg/dL [facility] Comment: Interpretive Data Ages < or [...] last revised on 2018. Chol/HDL ratio 3 [facility] Blood 05/25/2024 10:4 8 AM G[facility] 05/25/2024 11:40 AM G[facility]OCKEY Narrative [facility] - 05/25/2024 4:05 PM [facility] reflex us Thompson Light MD PhD LAB BLOOD ORDERABL ES Final Result [facility] Department [place] [address] * Diabetic Eye Exam (10/28/2022 4:10 PM CDT) us Historical Provider HEALTH MAINTENANCE Final Result * Albumin Creatinine Ratio, Urine (01/02/2021) Urine us Robert Gao MD LAB URINE ORDERABLES Paulette l Result EXTERNAL LAB from Last 3 Months or Most Recently Relevant to Health Maintenance Insurance MEDICARE BLUE CROSS MEDICARE SUPPLEMENT MEDICARE [facility] MEDICARE MEDICARE [employer] CROSS MEDICARE SUPPLEMENT Advance Directives For more information, please contact: [phone] * LIMITED - No CPR (Latest Code [...] 7:32 AM 05/25/2024 1:07 PM Care Teams Production Engineer Track Relationship Specialty Start Date End Date Thompson Napoles MD [address] [facility] [address] [place] [address] PCP - General Transplant 08/02/24 Darlin Diaz, RN [address] [facility] [address] [place] [address] VAD Coordinator 10/19/17 Aicha Walker Primary Spare Hand 09/19/24
--- OUTSIDE RECORDS SUMMARY | 2024-10-31 18:18 | XMS_ITS | Clinical Summary ---
Author Organization [facility] geronimo [facility] Address [address] [place] [address] Phone Care Team Providers Care Vinegar Maker Name Role Phone Unavailable Primary Care Provider Unavailabl e Allergies Active Allergy Reactions Criticality Noted Date Comments Octreotide Unknown 03/05/2017 Spironolactone Unknown 03/05/2017 Medications ampicillin (OMNIPEN) 2000 mg Piggyback Inject 2,000 mg by intraveous injection every 4 hours For 6 weeks from 02/22 , making last day 04/04) . Active docusate sodium (COLACE) 100 mg capsule Take 100 mg by mouth 2 times daily. Active brimonidine (ALPHAGAN) 0.2 % solutionIndicat ions:glaucoma Administer 1 Drop in right eye 2 times daily. Active insulin lispro (HumaLOG) 100 unit/mL vial Inject 9 Units by subcutaneous injection 3 times daily with meals. Active insulin lispro (HumaLOG) 100 unit/mL vial Inject 0-3 Units by subcutaneous injection daily at bedtime BS 176-200 = 1 unit 201-250 = 2 units 251-299 = 3 units . Active insulin lispro (HumaLOG) 100 unit/mL vial Inject 0-5 Units by subcutaneous injection 3 times daily with meals BS 140-175 = 1 unit 176-200 = 2 units 201-250 = 3 units 251-299 = 5 units . Active mirtazapine (REMERON) 15 mg tabletIndicatio ns:depression Take 1 Tablet (15 mg) by mouth daily at bedtime. 30 Tablet 7 Active acetaminophen (TYLENOL) 325 mg tablet Take 2 Tablets (650 mg) by mouth every 6 hours as needed for Other (See Comment) (See admin instructions). 100 Tablet 7 Active LORazepam (ATIVAN) 0.5 mg tablet Take 1 Tablet (0.5 mg) by mouth nightly as needed for Anxiety (sleep). 30 Tablet Active warfarin (COUMADIN) 5 mg tabletIndicatio ns:LVAD Take 1 Tablet (5 mg) by mouth daily. 30 Tablet Active saccharomyces boulardii (FLORASTOR KIDS) 250 mg Packet Take 1 Packet (250 mg) by mouth 2 times daily. Active atorvastatin (LIPITOR) 80 mg tablet Take 1 Tablet (80 mg) by mouth daily at bedtime. 30 Tablet Active losartan (COZAAR) 100 mg tablet Take 1 Tablet (100 mg) by mouth daily. 30 Tablet Active metoprolol succinate (TOPROL XL) 100 mg Extended Release 24 hour tablet Take 1 Tablet (100 mg) by mouth daily. 30 Tablet Active insulin glargine (LANTUS) 100 unit/mL pen syringe Inject 80 Units by subcutaneous injection daily at bedtime. 30 mL Active aspirin (ISMAEL CHEWABLE) 81 mg Tablet, ChewableIndicat ions:LVAD Take 1 Tablet (81 mg) by mouth daily. 30 Tablet Active pantoprazole (PROTONIX) 40 mg Tablet, Delayed Release (E.C.) Take 1 Tablet (40 mg) by mouth daily. 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 30 Tablet Active Active Problems Problem Noted Date Diagnosed Date LVAD (left ventricular assist device) present Sepsis 03/05/2017 Insomnia 03/05/2017 Hypothyroidism 03/05/2017 HTN (hypertension), benign 03/05/2017 Reactive depression (situational) 03/05/2017 Glaucoma 03/05/2017 HLD (hyperlipidemia) 03/05/2017 DM (diabetes mellitus), type 2 03/05/2017 GERD (gastroesophageal reflux disease) Social History Tobacco Use Types Packs/Day Years Used Date Smoking Tobacco: Never Assessed Sex and Gender Information Value Date Recorded Sex Assigned at Not on file Legal Sex Male 10:02 AM CDT Gender Identity Not on file Sexual Orientation Not on file Last Filed Vital Signs Vital Sign Reading Time Taken Comments Blood Pressure 103/80 03/18/2017 4:55 AM CDT Pulse 60 03/18/2017 4:55 AM CDT Temperature 36.8 C (98.2 F) 03/18/2017 4:55 AM CDT Respiratory Rate 16 03/18/2017 4:55 AM CDT Oxygen Saturation 100% 03/18/2017 4:55 AM CDT Inhaled Oxygen Concentration - - Weight 94.5 kg (208 lb 6.4 oz) 03/12/2017 10:00 AM CDT Height 175.3 cm (5' 9) 03/06/2017 10:00 AM CDT Body Mass Index 30.78 03/06/2017 10:00 AM CDT Plan of Treatment Health Maintenance Due Date Last Done Comments DIABETES ANNUAL FOOT EXAM 1960 DIABETES ANNUAL RETINAL EXAM 1960 DIABETES MICROALBUMIN ANNUAL SCREEN 1960 DTAP/TDAP/TD VACCINES (1 - Tdap) 1961 PNEUMOCOCCAL VACCINE 50+ YEARS (1 of 2 - PCV) 11/07/18 62 ZOSTER VACCINE (1 of 2) 1961 DIABETES HBA1C Q 6 MONTHS 09/04/2017 03/06/2017 RSV VACCINE (60+ or ) (1 - 1-dose 75+ series) 2017 LDL CHOLESTEROL ANNUAL 03/06/2018 03/06/2017 INFLUENZA VACCINE (#1) 2023 Procedures Procedure Name Priority Date/Time Associated Diagnosis Comments LIPID PANEL Routine 03/06/2017 5:00 AM CDT HEMOGLOBIN A1C Routine 03/06/2017 5:00 AM CDT from Last 3 Months or Most Recently Relevant to Health Maintenance Results * (ABNORMAL) HEMOGLOBIN A1C (03/06/2017 5:00 AM CDT) HEMOGLOBIN A1C 7.6(H) 4.0 - 6.0 % 03/06/2017 10:30 AM CDT [facility] EST. AVG GLUCOSE, A1C 171 mg/dL 03/06/2017 10:30 AM CDT [facility] Blood Collection / Unknown 03/06/2017 5:00 AM CDT 03/06/2017 9:14 AM CDT Terell Dago [employer] CHEMISTRY ORDERABLES F inal Result Performing Organization Address City/[facility] Co de Phone Number [facility] [employer] [facility] CLIA# [id number] [address] [place] [address] * (ABNORMAL) LIPID PANEL (03/06/2017 5:00 AM CDT) [facility] CHOLESTEROL 96 <200 mg/dL 03/06/2017 9:59 AM CDT [facility] TRIGLYCERIDE 152(H) <150 mg/dL 03/06/2017 9:59 AM CDT [facility] HDL 33(L) 40 - 59 mg/dL 03/06/2017 9:59 AM CDT [facility] [employer] LDL CALCULATED 33 <100 mg/dL 03/06/2017 9:59 AM T [facility] NON-HDL CHOLESTEROL 63 <130 mg/dL 03/06/2017 9:59 AM CDT [facility] Blood Collection / Unknown 03/06/2017 5:00 AM CDT 03/06/2017 9:14 AM CDT Narrative [facility] - 03/06/2017 9:59 AM CDT TOTAL CHOLESTEROL mg/dL Desirable <200 Borderline high 200-239 High >=240 TRIGLYCERIDES mg/dL Normal <150 Borderline high 150-199 High 200-499 Very high >=500 HDL CHOLESTEROL mg/dL Low <40 Normal 40-59 Desirable >=60 NON HDL CHOLESTEROL mg/dL Optimal <130 Near Optimal 130-159 Borderline High 160-189 Very High >=190 Calculated LDL mg/dL Optimal <100 Near Optimal 100-129 Borderline High 130-159 High 160-189 Very High >=190 ATPIII Guidelines Reference Ranges for Lipid Panels (NCEP/AMA) Terell BetheaReality[employer] CHEMISTRY ORDERABLES F inal Result [facility]# [id number] [address] [place] [address] from Last 3 Months or Most Recently Relevant to Health Maintenance Insurance MEDICARE PART A AND B Advance Directives For more information, please contact: [phone] * Full Code (Latest Code Status on File) Date Activated Date Inactivated Comments 03/05/2017 2:51 PM 03/18/2017 4:38 PM
[2024-10-31 18:49] LABS: Add Urine Microscopic? YES; Appearance Urine Clear (Clear); Bilirubin Urine Negative (Negative); Blood Urine Negative (Negative); Color Urine Yellow (Yellow); Glucose Urine UA 3+ mg/dL (Negative); Ketones Urine Negative (Negative); Leukocyte Esterase Ur Negative LEU/UL (Negative); Nitrate Urine Negative (Negative); Protein Urine 2+ mg/dL (Negative); Specific Grav Ur 1.028 (1.001-1.035); Urobilinogen Urine 0.2 mg/dL (<2.0)
[2024-10-31 18:56] VITALS: BP 108/82; PULSE 84; RESP 20; O2SAT 100
--- NOTE | 2024-10-31 19:28 | PC.NURSE ---
This RN tried to call [facility] to inform them that pt is being discharged, received no answer unable to leave message
== END 2024-10-31 19:23 ==
PROVIDERS: Emergency Provider Physician Assistant
DX: D64.9 Anemia, unspecified (principal); E11.65 Type 2 diabetes mellitus with hyperglycemia; E11.3593 Type 2 diabetes mellitus with proliferative diabetic retinopathy without macular edema, bilateral; Z79.4 Long term (current) use of insulin; E03.9 Hypothyroidism, unspecified; I10 Essential (primary) hypertension; Z95.811 Presence of heart assist device
CPT/HCPCS: 36415; 80053; 81001; 82010; 82948; 83735; 84100; 85025; 99283